=== PATIENT | female | born 1955 | race Caucasian/White ===

== ENCOUNTER 2022-09-27 11:19 | Outpatient (OUT) | payer MEDICARE, MEDICAID, SELFPAY ==
--- NOTE | 2022-09-27 11:25 | MM_ITS ---
Patient: DANELLE ROSS Exam Date: 09/27/2022 : 1955 Gender:F Ordering : RODNEY Jessica Sosa [employer] Admission #: [id number] Family : Order #: [id number] CLICK HERE TO VIEW EXAM RADIOLOGY REPORT PROCEDURE: MM TOMOSYNTHESIS SCREENING BI COMPARISON: MG MAMM SCREEN 3D GERARD CAD, 06/24/2021. MG MAMM SCREEN GERARD W CAD, 08/20/2018. MG MAMM SCREEN GERARD W CAD, 08/17/2017. MG MAMM GERARD SCRN W CAD DIG, 02/28/2014. INDICATIONS: Screening Calculator Name NCI Breast Cancer Risk Assessment Tool 5 Year Breast Cancer Risk 1.10% Lifetime Breast Cancer Risk 3.70% Personal Breast Cancer No Personal Ovarian Cancer No Treatments None Family Cancers Mother with pancreatic cancer at age 59. LOCATION: [facility] BREAST COMPOSITION: Scattered areas fibroglandular density. FINDINGS: DIAGNOSTIC CATEGORY 2--BENIGN FINDING: RIGHT BREAST: No significant suspicious finding. Scattered benign-appearing calcifications are present. No significant change has occurred. LEFT BREAST: No significant suspicious finding. Scattered benign-appearing calcifications are present. No significant change has occurred. RECOMMENDATIONS: ROUTINE MAMMOGRAM AND CLINICAL EVALUATION IN 12 MONTHS. PLEASE NOTE: A NORMAL MAMMOGRAM DOES NOT EXCLUDE THE POSSIBILITY OF BREAST CANCER. A CLINICALLY SUSPICIOUS PALPABLE LUMP SHOULD BE BIOPSIED. Dictated by: Gerald Cole M.D. on 09/29/2022 at 12:09 Approved by: Gerald Cole M.D. on 09/29/2022 at 12:19
== END 2022-09-27 11:20 | disposition home or self-care (01) ==
LOC: MAMMO 11:19
PROVIDERS: PCP Nurse Practitioner; Visit Provider Nurse Practitioner
DX: Z12.31 Encounter for screening mammogram for malignant neoplasm of breast (principal)
CPT/HCPCS: 77063; 77067

== ENCOUNTER 2023-05-01 09:46 | Outpatient (OUT) | payer MEDICARE, MEDICAID, SELFPAY ==
[2023-05-01 10:20] LABS: Basophils Percent Auto 0.6 % (0.2-2.0); Eosinophils Absolute Auto 0.2 10^3/uL (0.0-0.7); Eosinophils Percent Auto 2.6 % (0.9-7.0); Hematocrit 38.8 % (36.0-48.0); Hemoglobin 12.7 g/dL (12.0-16.0); Immature Granulocytes Abs Auto 0.01 10^3/uL (0.00-0.03); Immature Granulocytes Pct Auto 0.2 % (0.0-0.5); Lymphocytes Absolute Auto 1.7 10^3/uL (1.2-3.8); Lymphocytes Percent Auto 26.9 % (20.5-60.0); Mean Corpuscular HGB Conc 32.7 g/dL (29.9-35.2); Mean Corpuscular Hemoglobin 29.8 pg (26.7-34.0); Mean Corpuscular Volume 91.1 fL (81.0-99.0); Mean Platelet Volume 9.1 fL (9.5-13.5); Monocytes Absolute Auto 0.5 10^3/uL (0.3-0.8); Monocytes Percent Auto 7.3 % (1.7-12.0); Neutrophils Absolute Auto 3.9 10^3/uL (1.4-6.5); Neutrophils Percent Auto 62.4 % (43.0-75.0); Platelet Count 193 10^3/uL (150-450); Red Blood Count 4.26 10^6/uL (4.20-5.40); Red Cell Distribution Width 12.7 % (11.0-15.0); White Blood Count 6.2 10^3/uL (4.0-11.0)
[2023-05-01 10:27] LABS: Bilirubin Urine NEGATIVE (NEGATIVE); Blood Urine TRACE-I (NEGATIVE); Clarity Urine CLEAR (CLEAR); Color Urine YELLOW (YELLOW); Glucose Urine UA NEGATIVE (NEGATIVE); Ketones Urine NEGATIVE (NEGATIVE); Leukocyte Esterase Urine SMALL (NEGATIVE); Nitrite Urine NEGATIVE (NEGATIVE); Protein Urine NEGATIVE (NEG/TRACE); Specific Gravity Urine >=1.030 (1.005-1.025); Urobilinogen Urine 0.2 EU/dL (0.2-1.0)
[2023-05-01 10:28] LABS: Urine Microscopic Indicated YES
[2023-05-01 10:35] LABS: Bacteria Urine TRACE #/HPF (NONE SEEN); RBC Urine 0-2 #/HPF (0-2)
[2023-05-01 10:36] LABS: Mucus Urine MODERATE (NONE SEEN); Squamous Epithelial Cell Urine FEW #/LPF (NONE/RARE)
[2023-05-01 10:46] LABS: Microalbum Creatinine Ratio Ur 5.6 mg/g (0.0-29.9); Microalbumin Urine Random 1.4 mg/dL (<=30.0)
[2023-05-01 10:55] LABS: Alanine Aminotransferase 23 U/L (14-59); Albumin Globulin Ratio 0.8; Albumin Level 3.2 g/dL (3.4-5.0); Alkaline Phosphatase 107 U/L (46-116); Aspartate Amino Transferase 17 U/L (15-37); BUN Creatinine Ratio 10.5; Bilirubin Total 0.5 mg/dL (0.2-1.0); Calcium 8.9 mg/dL (8.5-10.1); Carbon Dioxide 28.7 mmol/L (21.0-32.0); Chloride 107 mmol/L (98-107); Chol HDL Ratio 3.9; Cholesterol 197 mg/dL (<=200); Estimated GFR (African America >60 (>=60); Estimated GFR (Non-African Ame >60 (>=60); Globulin 3.9 g/dL; Glucose 92 mg/dL (74-106); HDL Cholesterol 50 mg/dL (40-60); LDL Cholesterol Calculated 130.2 mg/dL; Potassium 3.7 mmol/L (3.5-5.1); Sodium 144 mmol/L (136-145); TSH W/ REFLEX FT4 2.565 uIU/mL (0.358-3.740); Total Protein 7.1 g/dL (6.4-8.2); Triglycerides 84 mg/dL (<=150); VLDL CHOLESTEROL 16.8 mg/dL
== END 2023-05-01 09:47 | disposition home or self-care (01) ==
LOC: LAB 09:49
PROVIDERS: PCP Nurse Practitioner; Visit Provider Nurse Practitioner
DX: R31.21 Asymptomatic microscopic hematuria (principal); I10 Essential (primary) hypertension; E55.9 Vitamin D deficiency, unspecified; E78.2 Mixed hyperlipidemia; E03.9 Hypothyroidism, unspecified; M85.80 Other specified disorders of bone density and structure, unspecified site
CPT/HCPCS: 36415; 80053; 80061; 81001; 82043; 82306; 82570; 84443; 85025

== ENCOUNTER 2023-08-07 20:24 | Outpatient (OUT) | payer MEDICARE, MEDICAID, SELFPAY ==
--- OUTSIDE RECORDS SUMMARY | 2023-08-07 20:48 | XMS_ITS | CCD ---
Demographics Address [address] [place] [address] Preferred Language en Marital Status Single Latter-Day Affiliation Unknown Race White Ethnic Group Not or Lati no Author Organization [facility] Inform ion [facility] Care Team Providers Care Color Maker Name Role Phone Conrado Mccoy Unavailable Unavail able Nadine, Conrado Álvarez Unavailable Unavail able Provider, Unlisted Unavailable Unavailable Jackelin Espinal Unavailable Unavailable Nadine, Conrado Álvarez Unavailable Unavail able Nadine, Conrado Álvarez Unavailable Unavail able Provider, Unlisted Unavailable Unavailable Conrado Ramos Unavailable Unavailable Theodore Guevara Unavailable Unavailable Nadine, Conrado Álvarez Unavailable Unavail able Nadine, Conrado Álvarez Unavailable Unavail able Provider, Unlisted Unavailable Unavailable SALLY, HANI Admitting Unavailable SALLY, HANI Attending Unavailable ZAHIDA BARKER Referring Unavailable FRANCIA JESSICA Primary Care Unavailable MD NIDHI MICHAELS Attending Unavailable MD NIDHI MICHAELS Primary Care Unavailable MD NIDHI MICHAELS Primary Care Unavailable MD NIDHI MICHAELS Consulting Unavailable MD SLICK STATON Attending Unavailab JESSICA Egan Primary Care Physician [phone] Jessica Sosa Primary Care Provider RADHA Hodge Attending Provider Jessica Sosa Primary Care Unavailable Yordan Hodge Attending Unavailable Yordan Hodge Admitting Unavailable RODNEY SOSA Admitting Unavailable RODNEY SOSA Attending Unavailable FRANCIA, RODNEY JESSICA Consulting Unavailable FRANCIA, RODNEY AVILEZA Primary Care Unavailable RODNEY SOSA JESSICA Admitting Unavailable DR JACKELIN STEELE V Consulting Unavailable FRANCIA, WARD SERVICE SUPERVISOR JESSICA Attending Unavailable AICHHOLZ, WARD SERVICE SUPERVISOR JESSICA Primary Care Unavailable AICHHOLZ, WARD SERVICE SUPERVISOR JESSICA Consulting Unavailable JACKELIN HODGE Consulting Unavailable AICHHOLZ, WARD SERVICE SUPERVISOR JESSICA Admitting Unavailable AICHHOLZ, WARD SERVICE SUPERVISOR JESSICA Attending Unavailable AICHHOLZ, WARD SERVICE SUPERVISOR JESSICA Consulting Unavailable AICHHOLZ, WARD SERVICE SUPERVISOR JESSICA Primary Care Unavailable DR JEROME AYALA Consulting Unavailable AICHHOLZ, WARD SERVICE SUPERVISOR JESSICA Admitting Unavailable AICHHOLZ, WARD SERVICE SUPERVISOR JESSICA Attending Unavailable AICHHOLZ, WARD SERVICE SUPERVISOR JESSICA Consulting Unavailable AICHHOLZ, WARD SERVICE SUPERVISOR JESSICA Primary Care Unavailable JOSE DE JESUS PEREZ Consulting Unavailable AICHHOLZ, WARD SERVICE SUPERVISOR JESSICA Primary Care Unavailable AICHHOLZ, WARD SERVICE SUPERVISOR JESSICA Attending Unavailable AICHHOLZ, WARD SERVICE SUPERVISOR JESSICA Admitting Unavailable AICHHOLZ, WARD SERVICE SUPERVISOR JESSICA Consulting Unavailable AICHHOLZ, WARD SERVICE SUPERVISOR JESSICA Admitting Unavailable AICHHOLZ, WARD SERVICE SUPERVISOR JESSICA Attending Unavailable AICHHOLZ, WARD SERVICE SUPERVISOR JESSICA Primary Care Unavailable AICHHOLZ, WARD SERVICE SUPERVISOR JESSICA Admitting Unavailable AICHHOLZ, WARD SERVICE SUPERVISOR JESSICA Attending Unavailable AICHHOLZ, WARD SERVICE SUPERVISOR JESSICA Consulting Unavailable AICHHOLZ, WARD SERVICE SUPERVISOR JESSICA Primary Care Unavailable DR JEROME AYALA Consulting Unavailable LINDA MASON Attending Unavailable AICHHOLZ, JESSICA Attending Unavailable AICHHOLZ, JESSICA Attending Unavailable AICHHOLZ, JESSICA Attending Unavailable Allergies Allergy Classification Reported Allergen(s) Allergy Type Date of Onset Reaction(s) Facility (5 sources) acetaminophen / HYDROcodone; Translations: [Vicodin] Drug Allergy 3 Eruption of skin (disorder) [facility] Repository (1 source) acetaminophen / oxyCODONE; Translations: [[facility]ocet 5325] [facility] code[facility]; Translations: [codeine] Drug Allergy 0 Eruption of skin (disorder), Weal (disorder) [facility] Repository (2 sources) Acetaminophen / oxyCODONE Drug Allergy 0 [facility] Repository (3 sources) Acetaminophen; Translations: [acetaminophen] Drug Allergy Weal (disorder) [facility] (3 sources) Acetaminophen / oxyCODONE; Translations: [acetaminophen-ox ycodone] Drug Allergy Cutaneous eruption (morphologic abnormality) [facility] [place] [facility] (3 sources) acetaminophen / propoxyphene; Translations: [acetaminophen-pr opoxyphene] Drug Allergy Eruption of skin (disorder) [facility] [place] [facility] (3 sources) Cortisone; Translations: [cortisone] Drug Allergy 6 Unknown [facility] (3 sources) oxyCODONE; Translations: [oxycodone] Drug Allergy Weal (disorder) [facility] (1 source) Cortisone Drug Allergy 6 [facility] Repository (1 source) Penicillins Drug allergy (disorder) 3 [facility] Repository (1 source) Darvocet-N 100 Drug allergy (disorder) 0 [facility] Repository (1 source) Codeine; Translations: [codeine sulfate] Drug Allergy [facility] Repository Medications Current Medications Medication Drug Class(es) Dates Sig (Normalized) Sig (Original) alendronic acid 70 mg oral tablet (2 sources) Bisphosphonate Start: 11-06-2018 take 1 tablet by mouth every week Fosamax 70 mg Tab 70 mg = 1 tab(s), Oral, 1x per week, Refills(s) 0 Start Date: 11/06/18 Status: Ordered busPIRone hydrochloride 7.5 mg oral tablet (2 sources) Start: 11-03-2021 busPIRone 7.5 mg oral tablet Refills(s) 0 Start Date: 11/03/21 Status: Ordered montelukast 10 mg oral tablet (2 sources) Leukotriene Receptor Antagonist Start: 11-06-2018 take 1 tablet by mouth once daily Singulair 10 mg Tab 10 mg = 1 tab(s), Oral, Daily, Refills(s) 0 Start Date: 11/06/18 Status: Ordered sertraline 100 mg oral tablet (2 sources) Serotonin Reuptake Inhibitor Start: 11-06-2018 take 1 tablet by mouth once daily Zoloft 100 mg Tab 100 mg = 1 tab(s), Oral, Daily, Refills(s) 0 Start Date: 11/06/18 Status: Ordered simvastatin 20 mg oral tablet (2 sources) HMG-CoA Reductase Inhibitor Start: 11-06-2018 take 1 tablet by mouth once daily at bedtime simvastatin 20 mg Tab 20 mg = 1 tab(s), Oral, Once a day (at bedtime), Refills(s) 0 Start Date: 11/06/18 Status: Ordered tolterodine tartrate 2 mg oral tablet (2 sources) Cholinergic Muscarinic Antagonist Start: 11-03-2021 take 1 tablet by mouth twice daily tolterodine 2 mg Tab 2 mg = 1 tab(s), Oral, BID, # 60 tab(s), Refills(s) 11, Pharmacy: [facility]/pharmacy #[id number], 165.1, cm, 03/31/20 9:27:00 EST, Height/Length Dosing, 92.8, kg, 03/31/20 9:27:00 EST, Weight Dosing Start Date: 11/03/21 Status: Ordered Vitamin D (2 sources) Start: 11-06-2018 Vitamin D Oral, Daily, Refills(s) 0 Start Date: 11/06/18 Status: Ordered Completed/Discontinued Medications Medication Drug Class(es) Dates Sig (Normalized) Sig (Original) levothyroxine sodium 0.05 mg oral tablet (2 sources) l-Thyroxine Start: 11-06-2018 take 1 tablet by mouth once daily levothyroxine 50 mcg (0.05 mg) Tab 50 microgram = 1 tab(s), Oral, Daily, Refills(s) 0 Start Date: 11/06/18 Status: Ordered Problems Active Problems Problem Classification Problem Date Documented Da te Episodic/Chronic Chronic obstructive pulmonary disease and bronchiectasis (4 sources) Bronchitis, not specified as acute or chronic; Translations: [BRONCHITIS NOT SPEC ACUTE/CHRON] Onset: 05-09-2022 Episodic Disorders of lipid metabolism (7 sources) Hypercholesterolemia ; Translations: [Hyperlipidemia, unspecified] Onset: 08-09-2021 05-17-2013 Chronic Essential hypertension (2 sources) Hypertensive disorder 08-08-2013 Chronic Comment on above: on no meds at presen t Genitourinary symptoms and ill-defined conditions (7 sources) Mixed incontinence; Translations: [Female stress incontinence] Onset: 11-03-2021 Chronic Genitourinary symptoms and ill-defined conditions (4 sources) Nocturia; Translations: [Poor stream of urine] 02-27-2020 Episodic Nutritional deficiencies (1 source) Vitamin D deficiency, unspecified; Translations: [VITAMIN D DEFICIENCY UNSPECIFIED] Onset: 06-03-2022 Chronic Other bone disease and musculoskeletal deformities (2 sources) Posterior calcaneal exostosis 05-17-2013 Episodic Comment on above: left Other diseases of bladder and urethra (1 source) Detrusor overactivity; Translations: [Overactive bladder] Onset: 11-03-2021 Chronic Other diseases of bladder and urethra (2 sources) Overactive bladder 03-31-2020 Chronic Other diseases of bladder and urethra (3 sources) Traumatic urethral stricture; Translations: [Other post-traumatic urethral stricture, female] Onset: 11-03-2021 Episodic Other upper respiratory disease (2 sources) Seasonal allergic rhinitis 10-04-2013 Chronic Spondylosis; intervertebral disc disorders; other back problems (2 sources) Other cervical disc degeneration, unspecified cervical region; Translations: [Other intervertebral disc degeneration, thoracic region] Onset: 06-03-2022 Chronic Spondylosis; intervertebral disc disorders; other back problems (4 sources) Pain in thoracic spine; Translations: [PAIN IN THORACIC SPINE] Onset: 05-25-2022 Episodic Thyroid disorders (1 source) Hypothyroidism, unspecified; Translations: [HYPOTHYROIDISM UNSPECIFIED] Onset: 06-03-2022 Chronic Unclassified (2 sources) Asymptomatic microscopic hematuria 11-21-2019 Unclassified (2 sources) Finding of sensation of bladder 02-27-2020 Unclassified (1 source) Hallux valgus (acquired), right foot; Translations: [Hallux valgus (acquired), right foot] Onset: 03-11-2022 Unclassified (3 sources) CONTACT W/AND (SUSP) EXPOS COVID-19; Translations: [CONTACT W/AND (SUSP) EXPOS COVID-19] Onset: 05-03-2022 Past or Other Problems Problem Classification Problem Date Documented Da te Episodic/Chronic Other bone disease and musculoskeletal deformities (1 source) Other specified disorders of bone density and structure, unspecified site; Translations: [OTH D/O BONE DEN STRUCT UNS SITE] Onset: 06-25-2021 Episodic Other non-traumatic joint disorders (4 sources) Pain in right hip; Translations: [PAIN IN RIGHT HIP] Onset: 12-08-2021 Episodic Other screening for suspected conditions (not mental disorders or infectious disease) (4 sources) Encounter for screening mammogram for malignant neoplasm of breast; Translations: [ENC SCR MAMMO MALIG NEOPLASM BREAST] Onset: 06-24-2021 Episodic Residual codes; unclassified (1 source) Asymptomatic menopausal state; Translations: [ASYMPTOMATIC MENOPAUSAL STATE] Onset: 06-25-2021 Episodic Residual codes; unclassified (1 source) Family history of malignant neoplasm of other organs or systems; Translations: [FAM HX MALIG NEOPLASM OTH ORGN/SYS] Onset: 06-25-2021 Episodic Unclassified (1 source) CONTACT W/AND (SUSP) EXPOS COVID-19; Translations: [CONTACT W/AND (SUSP) EXPOS COVID-19] Onset: 05-02-2022 Results Test Name Value Interpretation Reference Range Facility CBC AUTO DIFFon 05-25-2022 BASO # 0.0 103/ul Normal 0.0-0.1 [facility] Comment on above: Performed By: #### C BC #### [facility] [address] [place] [address] Dr. Dedrick Kinsey Basophils/100 WBC (Bld) 0.5 % Normal 0.2-2.0 [facility] Comment on above: Performed By: #### C BC #### [facility] [address] [address] [address] Dedrick Kinsey EO # 0.1 103/ul Normal 0.0-0.7 [facility] Comment on above: Performed By: #### C BC #### [facility] [address] [place] [address] Dr. Dedrick Kinsey Eosinophils/100 WBC (Bld) 2.5 % Normal 0.9-7.0 [facility] Comment on above: Performed By: #### C BC #### [facility] [address] [address] [address] Dedrick Kinsey Erythrocyte distribution width (RBC) [Ratio] 13.2 % Normal 11.0-15.0 [facility] Comment on above: Performed By: #### C BC #### [facility] [address] [place] [address] Dr. Dedrick Kinsey Hematocrit (Bld) [Volume fraction] 37.5 % Normal 36.0-48.0 [facility] Comment on above: Performed By: #### C BC #### [facility] [address] [place] [address] Dr. Dedrick Kinsey Hemoglobin (Bld) [Mass/Vol] 12.6 g/dL Normal 12.0-16.0 [facility] Comment on above: Performed By: #### C BC #### [facility] [address] [place] [address] Dr. Dedrick Kinsey IG # 0.01 10e3/ul Normal 0.00-0.03 [facility] Comment on above: Performed By: #### C BC #### [facility] [address] [place] [address] Dr. Dedrick Kinsey IG % 0.2 % Normal 0.0-0.5 [facility] Comment on above: Performed By: #### C BC #### [facility] [address] [place] [address] Dr. Dedrick Kinsey LYMPH # 1.5 103/ul Normal 1.2-3.8 [facility] Comment on above: Performed By: #### C BC #### [facility] [address] [place] [address] Dr. Dedrick Kinsey Lymphocytes/100 WBC (Bld) 34.0 % Normal 20.5-60.0 [facility] Comment on above: Performed By: #### C BC #### [facility] [address] [place] [address] Dr. Dedrick Kinsey MANUAL DIFF REQ NO Normal [facility] Comment on above: Performed By: #### C BC #### [facility] [address] [place] [address] Dr. Dedrick Kinsey MCH (RBC) [Entitic mass] 29.9 pg Normal 26.7-34.0 [facility] Comment on above: Performed By: #### C BC #### [facility] [address] [place] [address] Dr. Dedrick Kinsey MCHC (RBC) [Mass/Vol] 33.6 g/dL Normal 29.9-35.2 [facility] Comment on above: Performed By: #### C BC #### [facility] [id number] Dedrick Kinsey MCV (RBC) [Entitic vol] 89.1 fL Normal 81.0-99.0 [facility] Comment on above: Performed By: #### C BC #### [facility] [address] [address] [address] Dedrick Kinsey MONO # 0.4 103/ul Normal 0.3-0.8 [facility] Comment on above: Performed By: #### C BC #### [facility] [address] [place] [address] Dr. Dedrick Kinsey Monocytes/100 WBC (Bld) 9.0 % Normal 1.7-12.0 [facility] Comment on above: Performed By: #### C BC #### [facility] [address] [place] [address] Dr. Dedrick Kinsey NEUT # 2.3 103/ul Normal 1.4-6.5 [facility] Comment on above: Performed By: #### C BC #### [facility] [address] [place] [address] Dr. Dedrick Kinsey Neutrophils/100 WBC (Bld) 53.8 % Normal 43.0-75.0 [facility] Comment on above: Performed By: #### C BC #### [facility] [address] [place] [address] Dr. Dedrick Kinsey Platelet mean volume (Bld) [Entitic vol] 9.2 fL Critically low 9.5-13.5 [facility] Comment on above: Performed By: #### C BC #### [facility] [address] [place] [address] Dr. Dedrick Kinsey PLT 188 103/ul Normal 150-450 [facility] Comment on above: Performed By: #### C BC #### [facility] [address] [place] [address] Dr. Dedrick Kinsey RBC 4.21 106/ul Normal 4.20-5.40 [facility] Comment on above: Performed By: #### C BC #### [facility] [address] [place] [address] Dr. Dedrick Kinsey WBC 4.4 103/ul Normal 4.0-11.0 [facility] Comment on above: Performed By: #### C BC #### [facility] [address] [place], [place] [address] Dr. Dedrick Kinsey FREE T4on 05-25-2022 Free T4 [Mass/Vol] 0.79 ng/dL Normal 0.76-1.46 [facility] Comment on above: Performed By: #### V ITAD, FT4 ####[facility] [address] [id number][address] Dedrick Kinsey LIPID PROFILEon 05-25-2022 CHOL-HDL RATIO NORM SEE BELOW Normal [facility] Comment on above: Result Comment: 3.3 - 4.4 LOW RISK 4.4 - 7.1 AVERAGE RISK 7.1 - 11.0 MODERATE RISK >11.0 HIGH RISK Performed By: #### T SH, CMP, LIPID ####[facility] [address] [address]DrChanda Kinsey Cholesterol [Mass/Vol] 175 mg/dL Normal <=200 [facility] Comment on above: Performed By: #### T SH, CMP, LIPID ####[facility] [address] [id number] Kinsey Cholesterol in HDL [Mass/Vol] 39 mg/dL Critically low 40-60 [facility] Comment on above: Performed By: #### T SH, CMP, LIPID ####[facility] [address] [id number] Kinsey Cholesterol in LDL [Mass/Vol] 113.6 mg/dL Normal [facility] Comment on above: Performed By: #### T SH, CMP, LIPID ####[facility] [address] [id number] Kinsey Cholesterol.total/Cho lesterol in HDL [Mass ratio] 4.5 {ratio} Normal [facility] Comment on above: Performed By: #### T SH, CMP, LIPID ####[facility] [address] [id number] Kinsey HDL NORMAL > or = 60 mg/dl - LO W CARDIOVASCULAR RISK <40 mg/dl - HIGH CARDIOVASCULAR RISK Normal [facility] Comment on above: Performed By: #### T SH, CMP, LIPID ####[facility] [address] [id number] Kinsey LDL CALC NORMAL SEE BELOW Normal [facility] Comment on above: Result Comment: <100 mg/dl OPTIMAL 100 - 129 mg/dl NEAR OR ABOVE OPTIMAL 130 - 159 mg/dl BORDERLINE HIGH 160 - 189 mg/dl HIGH >190 mg/dl VERY HIGH Performed By: #### T SH, CMP, LIPID ####[facility] [address] [id number] Kinsey Triglyceride [Mass/Vol] 112 mg/dL Normal <=150 [facility] Comment on above: Performed By: #### T SH, CMP, LIPID ####[facility] [address] [address]Dr. Dedrick Kinsey VLDL CALC 22.4 mg/dL Normal [facility] Comment on above: Performed By: #### T SH, CMP, LIPID ####[facility] [address] [id number] Kinsey PROF 14(COMP METB)on 023 Albumin [Mass/Vol] 3.5 g/dL Normal 3.4-5.0 [facility] Comment on above: Performed By: #### T SH, CMP, LIPID ####[facility] [address] [id number]. Dedrick Kinsey Albumin/Globulin [Mass ratio] 1.0 {ratio} Normal [facility] Comment on above: Performed By: #### T SH, CMP, LIPID ####[facility] [address] [address]Dr. Dedrick Kinsey ALP [Catalytic activity/Vol] 84 U/L Normal 46-116 [facility] Comment on above: Performed By: #### T SH, CMP, LIPID ####[facility] [address] [address]DrChanda Kinsey ALT [Catalytic activity/Vol] 37 U/L Normal 14-59 [facility] Comment on above: Performed By: #### T SH, CMP, LIPID ####[facility] [address] [address]Dr. Dedrick Kinsey Anion gap [Moles/Vol] 11.7 mmol/L Normal Th e [facility] Comment on above: Performed By: #### T SH, CMP, LIPID ####[facility] [address] [address]Dr. Dedrick Kinsey AST [Catalytic activity/Vol] 20 U/L Normal 15-37 [facility] Comment on above: Performed By: #### T SH, CMP, LIPID ####[facility] [address] [place], [place] [address]Dr. Dedrick Kinsey Bilirubin [Mass/Vol] 0.8 mg/dL Normal 0.2-1.0 [facility] Comment on above: Performed By: #### T SH, CMP, LIPID ####[facility] [address] [place], [place] [address]Dr. Dedrick Kinsey Calcium [Mass/Vol] 9.4 mg/dL Normal 8.5-10.1 [facility] Comment on above: Performed By: #### T SH, CMP, LIPID ####[facility] [address] [place], [place] [address]Dr. Dedrick Kinsey Chloride [Moles/Vol] 106 mmol/L Normal 98-107 [facility] Comment on above: Performed By: #### T SH, CMP, LIPID ####[facility] [address] [place], [place] [address]Dr. Dedrick Kinsey CO2 [Moles/Vol] 28.4 mmol/L Normal 21.0-32.0 [facility] Comment on above: Performed By: #### T SH, CMP, LIPID ####[facility] [address] [place], [place] [address]Dr. Dedrick Kinsey Creatinine [Mass/Vol] 0.77 mg/dL Normal 0.55-1.02 [facility] Comment on above: Performed By: #### T SH, CMP, LIPID ####[facility] [address] [id number]. Dedrick Kinsey EGFR-AF ZAMBIAN >60 Normal >=60 [facility] Comment on above: Performed By: #### T SH, CMP, LIPID ####[facility] [address] [address]Dr. Dedrick Kinsey EGFR-NON AF ZAMBIAN >60 Normal >=60 [facility] Comment on above: Performed By: #### T SH, CMP, LIPID ####[facility] [address] [address]Dr. Dedrick Kinsey Globulin (S) [Mass/Vol] 3.6 g/dL Normal [facility] Comment on above: Performed By: #### T SH, CMP, LIPID ####[facility] [address] [address]Dr. Dedrick Kinsey Glucose [Mass/Vol] 106 mg/dL Normal 74-106 [facility] Comment on above: Performed By: #### T SH, CMP, LIPID ####[facility] [address] [address]Dr. Dedrick Kinsey Potassium [Moles/Vol] 4.1 mmol/L Normal 3.5-5.1 [facility] Comment on above: Performed By: #### T SH, CMP, LIPID ####[facility] [address] [address]Dr. Marielylan Kinsey Protein [Mass/Vol] 7.1 g/dL Normal 6.4-8.2 [facility] Comment on above: Performed By: #### T SH, CMP, LIPID ####[facility] [address] [address]Dr. Marielylan Kinsey Sodium [Moles/Vol] 142 mmol/L Normal 136-145 [facility] Comment on above: Performed By: #### T SH, CMP, LIPID ####[facility] [address] [address]Dr. Marielylan Kinsey Urea nitrogen [Mass/Vol] 10.0 mg/dL Normal 7.0-18.0 [facility] Comment on above: Performed By: #### T SH, CMP, LIPID ####[facility] [address] [phone]. Dedrick Kinsey Urea nitrogen/Creatinine [Mass ratio] 13.0 mg/mg Normal [facility] Comment on above: Performed By: #### T SH, CMP, LIPID ####[facility] [address] [phone]. Dedrick Kinsey TSHon 05-25-2022 TSH 2.611 uIU/mL Normal 0.358-3.74 0 [facility] Comment on above: Performed By: #### T SH, CMP, LIPID ####[facility] [address] [address]Dr. Dedrick Kinsey VITAMIN D 25 OHon 05-25-2022 VIT D 25-OH 31.7 ng/mL Normal [facility] Comment on above: Performed By: #### V ITAD, FT4 ####[facility] [address] [address]Dr. Dedrick Kinsey VIT D RANGES SEE BELOW Normal [facility] Comment on above: Result Comment: <20 ng/mL Vit D deficient 20 - <30 ng/mL Vit D insufficient 30 - 100 ng/mL Vit D sufficient >100 ng/mL Potential Toxicity Performed By: #### V ITAD, FT4 ####[facility] [address] [address]Dr. Dedrick Kinsey XR CSPINE 2_3 VIEWSon 2022 XR CSPINE 2_3 VIEWS EXAMINATION: XR CSPI NE 2_3 VIEWS HISTORY: Degeneration of cervical intervertebral disc ; chronic back pain COMPARISON: No relevant comparison available. FINDINGS: BONES: Posterior mechanical fusion C3-C7 via bilateral pedicle screws and rods; no appreciable hardware fracture or loosening. Posterior decompression C3-C5, and moderate degenerative facet arthropathy. DISC SPACES: Mild narrowing C3-C4 through C6-C7. PARASPINOUS: Negative. No paraspinous abnormality is seen. OTHER: Negative. IMPRESSION: 1. C3-C7 bilateral posterior mechanical fusion and posterior decompression without appreciable hardware failure; no comparison studies. 2. Multilevel moderate degenerative disc disease and facet arthropathy. Electronically authenticated by: JEROME AYALA Date: 2022-05-25 11:30 Normal [facility] XR TSPINE 3 VIEWSon 05-26-19 23 XR TSPINE 3 VIEWS EXAMINATION: XR TSPI NE 3 VIEWS HISTORY: Pain in thoracic spine COMPARISON: XR chest 12/30/2019 FINDINGS: BONES: No significant spondylosis, scoliosis, fracture, or visible bony lesion. DISC SPACES: Multilevel mild degenerative disc disease and anterior endplate osteophytes. PARASPINOUS: Negative. No paraspinous abnormality is seen. OTHER: Mechanical fusion of cervical spine. IMPRESSION: 1. Multilevel mild degenerative disc disease of thoracic spine. No acute or specific abnormality. 2. Posterior mechanical fusion of cervical spine. Please see today's XR C-spine report. Electronically authenticated by: JEROME AYALA Date: 2022-05-25 11:32 Normal [facility] XR CHEST 2 Von 05-09-2022 XR CHEST 2 V EXAM: XR CHEST 2 V HISTORY: Bronchitis . Cough for one week. COMPARISON: 12/30/2019 TECHNIQUE: Upright PA and lateral chest x-ray FINDINGS: The heart is not enlarged and the vasculature is not distended. There has been interval clearing of the right lung base. No acute infiltrate, effusion or pneumothorax is identified. There is no clear evidence of bronchitis at this time. Degenerative changes are seen in the spine. Hardware projects over the cervical spine. IMPRESSION: No acute infiltrate or evidence of cardiac decompensation. There is been interval improvement of the aeration at the right lung base, and the overall appearance of the chest is otherwise unchanged. Electronically authenticated by: JOSE DE JESUS PEREZ Date: 2022-05-09 12:45 Normal [facility] Covid-19 PCR ([facility]on 04-20 SARS-CoV-2 (COVID-19) RNA JAYY+probe Ql (Unsp spec) Not detected Normal NOT DETECTED [facility] Comment on above: Result Comment: When diagnostic testing is negative, the possibility of a false negative should be considered in the context of a patient's recent exposures and the presence of clinical signs and symptoms consistent with SARS-CoV-2. This test is not yet approved or cleared by the [place] FDA. When there are no FDA-approved or cleared tests available, and other criteria are met, FDA can make tests available under an emergency access mechanism called an Emergency Use Authorization (EUA). The EUA for this test is supported by the Book C[employer] of Health and Human Service's declaration that circumstances exist to justify the emergency use of in vitro diagnostics for the detection and/or diagnosis of the virus that causes COVID-19. This EUA will remain in effect for the duration of the COVID-19 declaration justifying emergency of IVDs, unless it is terminated or revoked by the FDA (after which the test may no longer be used). Performed By: #### [facility] ####[facility] [id number] [place], [place] [address]Ay. Dedrick Kinsey Basic Metabolic Panelon 02-21 Anion gap [Moles/Vol] 11.2 mmol/L Normal 6.0-15.0 [facility] Comment on above: Order Comment: Reason for Exam HAV (hallux abducto valgus), right Performed By: #### C BC, BMP #### [address] Calcium [Mass/Vol] 9.2 mg/dL Normal 8.2-10.2 [facility] Comment on above: Order Comment: Reason for Exam HAV (hallux abducto valgus), right Result Comment: PERF ORMED BY: [place] [address] PATHOLOGIST CONTINUOUS VULCANIZING MACHINE OPERATOR SHRUTHI KIRKPATRICK M.D. Performed By: #### C BC, BMP #### [place] [address] [place] Chloride [Moles/Vol] 102 mmol/L Normal 95-114 [facility] Comment on above: Order Comment: Reason for Exam HAV (hallux abducto valgus), right Performed By: #### C BC, BMP #### [facility] [address] [place] [id number] [place] CO2 [Moles/Vol] 27.0 mmol/L Normal 22.0-30.0 [facility] Comment on above: Order Comment: Reason for Exam HAV (hallux abducto valgus), right Performed By: #### C BC, BMP #### [place] [address] [place] Creatinine [Mass/Vol] 0.80 mg/dL Normal 0.44-1.03 [facility] Comment on above: Order Comment: Reason for Exam HAV (hallux abducto valgus), right Performed By: #### C BC, BMP #### [address] Estimated GFR ( Kate > 60 Normal [facility] Comment on above: Order Comment: Reason for Exam HAV (hallux abducto valgus), right Result Comment: GFR estimated reference range: According to KDOQI guidelines, <60 ml/min/1.73m2 is sufficient to diagnose a patient with chronic kidney disease. Performed By: #### C BC, BMP #### [address] Estimated GFR (Non- Am > 60 [facility] Comment on above: Order Comment: Reason for Exam HAV (hallux abducto valgus), right Performed By: #### C BC, BMP #### [address] Glucose [Mass/Vol] 99 mg/dL Normal 70-100 [facility] Comment on above: Order Comment: Reason for Exam HAV (hallux abducto valgus), right Result Comment: [place] om Glucose Reference Range is dependent on time and content of last meal. Glucose of more than 200 mg/dL in a nonstressed, ambulatory subject supports the diagnosis of Diabetes Mellitus. ADA recommended reference range Performed By: #### C BC, BMP #### [place] [id number] [facility] Potassium [Moles/Vol] 4.2 mmol/L Normal 3.5-5.1 [facility] Comment on above: Order Comment: Reason for Exam HAV (hallux abducto valgus), right Performed By: #### C BC, BMP #### [place] [id number] [facility] Sodium [Moles/Vol] 136 mmol/L Normal 136-146 [facility] Comment on above: Order Comment: Reason for Exam HAV (hallux abducto valgus), right Performed By: #### C BC, BMP #### [facility] [address] [place] [address] [place] Urea nitrogen [Mass/Vol] 10 mg/dL Normal 9-23 [facility] Comment on above: Order Comment: Reason for Exam HAV (hallux abducto valgus), right Performed By: #### C BC, BMP #### [facility] [address] [place] [address] [place] Basophils Auto (Bld) [#/Vol] Ordered By: Yordan Hodge on 03-11-2022 Basophils (Bld) [#/Vol] 0.0 10*3/uL 0.0-0.2 [facility] Basophils/100 WBC Auto (Bld) Ordered By: Yordan Hodge on 03-11-2022 Basophils/100 WBC (Bld) 0.4 % . [facility] Complete Blood Count Auto Di ffon 03-11-2022 Basophils (Bld) [#/Vol] 0.0 10*3/uL Normal 0.0-0.2 [facility] Comment on above: Order Comment: Reaso n for Exam HAV (hallux abducto valgus), right Result Comment: PERF ORMED BY: [place] [address] PATHOLOGIST CONTINUOUS VULCANIZING MACHINE OPERATOR SHRUTHI KIRKPATRICK M.D. Performed By: #### C BC, BMP #### [place] [address] [place] Basophils/100 WBC (Bld) 0.4 % Normal . [facility] Comment on above: Order Comment: Reaso n for Exam HAV (hallux abducto valgus), right Performed By: #### C BC, BMP #### [facility] [address] [place] [address] [place] Eosinophils (Bld) [#/Vol] 0.1 10*3/uL Normal 0.0-0.45 [facility] Comment on above: Order Comment: Reaso n for Exam HAV (hallux abducto valgus), right Performed By: #### C BC, BMP #### [facility] [address] [place] [address] Eosinophils/100 WBC (Bld) 1.4 % Normal . [facility] Comment on above: Order Comment: Reaso n for Exam HAV (hallux abducto valgus), right Performed By: #### C BC, BMP #### [address] Erythrocyte distribution width (RBC) [Ratio] 13.1 % Normal 11.9-15.3 [facility] Comment on above: Order Comment: Reaso n for Exam HAV (hallux abducto valgus), right Performed By: #### C BC, BMP #### [address] Hematocrit (Bld) [Volume fraction] 39.5 % Normal 34.0-46.4 [facility] Comment on above: Order Comment: Reaso n for Exam HAV (hallux abducto valgus), right Performed By: #### C BC, BMP #### [address] Hemoglobin (Bld) [Mass/Vol] 13.3 g/dL Normal 11.8-15.4 [facility] Comment on above: Order Comment: Reaso n for Exam HAV (hallux abducto valgus), right Performed By: #### C BC, BMP #### [address] Lymphocytes (Bld) [#/Vol] 1.6 10*3/uL Normal 1.00-4.8 [facility] Comment on above: Order Comment: Reaso n for Exam HAV (hallux abducto valgus), right Performed By: #### C BC, BMP #### [address] Lymphocytes/100 WBC (Bld) 22.0 % Normal . [facility] Comment on above: Order Comment: Reaso n for Exam HAV (hallux abducto valgus), right Performed By: #### C BC, BMP #### [address] MCH (RBC) [Entitic mass] 30.0 pg Normal 24.7-34.3 [facility] Comment on above: Order Comment: Reaso n for Exam HAV (hallux abducto valgus), right Performed By: #### C BC, BMP #### [facility] [address] MCV (RBC) [Entitic vol] 88.8 fL Normal 80-100 [facility] Comment on above: Order Comment: Reaso n for Exam HAV (hallux abducto valgus), right Performed By: #### C BC, BMP #### [facility] [address] Mean Corpuscular HGB Conc 33.7 g/dL Normal 32.0-35.0 [facility] Comment on above: Order Comment: Reaso n for Exam HAV (hallux abducto valgus), right Performed By: #### C BC, BMP #### [place] [address] [place] Monocytes (Bld) [#/Vol] 0.5 10*3/uL Normal 0.0-0.8 [facility] Comment on above: Order Comment: Reaso n for Exam HAV (hallux abducto valgus), right Performed By: #### C BC, BMP #### [place] [address] [place] Monocytes/100 WBC (Bld) 7.0 % Normal . [facility] Comment on above: Order Comment: Reaso n for Exam HAV (hallux abducto valgus), right Performed By: #### C BC, BMP #### [place] [address] [place] Neutrophils (Bld) [#/Vol] 5.0 10*3/uL Normal 1.8-7.7 [facility] Comment on above: Order Comment: Reaso n for Exam HAV (hallux abducto valgus), right Performed By: #### C BC, BMP #### [place] [address] [place] Neutrophils/100 WBC (Bld) 69.2 % Normal . [facility] Comment on above: Order Comment: Reaso n for Exam HAV (hallux abducto valgus), right Performed By: #### C BC, BMP #### [facility] [address] NRBC% 0.2 /100{WBC} Normal 0-0.5 [facility] Comment on above: Order Comment: Reaso n for Exam HAV (hallux abducto valgus), right Performed By: #### C BC, BMP #### [address] Platelet mean volume (Bld) [Entitic vol] 7.6 fL Normal 6.3-10.7 [facility] Comment on above: Order Comment: Reaso n for Exam HAV (hallux abducto valgus), right Performed By: #### C BC, BMP #### [address] Platelets (Bld) [#/Vol] 212 10*3/uL Normal 150-450 [facility] Comment on above: Order Comment: Reaso n for Exam HAV (hallux abducto valgus), right Performed By: #### C BC, BMP #### [address] RBC (Bld) [#/Vol] 4.44 10*6/uL Normal 3.60-5.00 [facility] Comment on above: Order Comment: Reaso n for Exam HAV (hallux abducto valgus), right Performed By: #### C BC, BMP #### [address] WBC (Bld) [#/Vol] 7.3 10*3/uL Normal 3.8-11.6 [facility] Comment on above: Order Comment: Reaso n for Exam HAV (hallux abducto valgus), right Performed By: #### C BC, BMP #### [address] Creatinine and Glomerular fi ltration rate.predicted panel (S/P/Bld)Ordered By: Yordan Hodge on 03-11-2022 Creatinine [Mass/Vol] 0.80 mg/dL 0.44-1.03 [facility] ECG 12 lead ECGon 03-11-2022 ECG 12 lead ECG [facility] Main [place] [address] [place] [address] Electrocardiograph Report Signed Patient: Claudette Hernandes MR#: [id number] : 1955 Acct:[id number] Age/Sex: 66 / F ADM Date: 03/11/22 Loc: XD Room: Type: [facility] CLI Attending Dr: Yordan Hodge DPM Ordering Provider: Yordan Hodge DPM Date of Service: 03/11/22 ECG/ECG 12 lead ECG: surgery;HAV (hallux abducto valgus), right Copies to: Test Reason : Blood Pressure : / mmHG Vent. Rate : 081 BPM Atrial Rate : 081 BPM P-R Int : 216 ms QRS Dur : 084 ms QT Int : 394 ms P-R-T Axes : 076 070 062 degrees QTc Int : 457 ms Sinus rhythm with 1st degree AV block Incomplete right bundle branch block Otherwise normal ECG When compared with ECG of 11-MAR-2022 10:11, (Unconfirmed) No significant change was found Confirmed by LAURA CHAVEZ MD ([id number]) on 03/11/2022 6:01:10 PM Referred By: Electronically Signed By:LAURA CHAVEZ MD Transcribed By: MUS Signed By Laura Chavez MD [id number] Normal [facility] Eosinophils Auto (Bld) [#/Vo l]Ordered By: Yordan Hodge on 03-11-2022 Eosinophils (Bld) [#/Vol] 0.1 10*3/uL 0.0-0.45 [facility] Eosinophils/100 WBC Auto (Bl d)Ordered By: Yrodan Hodge on 03-11-2022 Eosinophils/100 WBC (Bld) 1.4 % . [facility] Erythrocyte distribution wid th Auto (RBC) [Ratio]Ordered By: Yordan Hodge on 03-11-2022 Erythrocyte distribution width (RBC) [Ratio] 13.1 % 11.9-15.3 [facility] Estimated glomerular filtrat ion rate (GFR) non- AmericanOrdered By: Yordan Hodge on 03-11-2022 GFR/1.73 sq M.predicted among non-blacks MDRD (S/P/Bld) [Vol rate/Area] > 60 mL/Min [facility] Hematocrit Auto (Bld) [Volum e fraction]Ordered By: Yordan Hodge on 03-11-2022 Hematocrit (Bld) [Volume fraction] 39.5 % 34.0-46.4 [facility] Hemoglobin [Mass/volume] in BloodOrdered By: Yordan Hodge on 03-11-2022 Hemoglobin (Bld) [Mass/Vol] 13.3 g/dL 11.8-15.4 [facility] Leukocytes [#/volume] correc slim for nucleated erythrocytes in Blood by Automated counOrdered By: Yordan Hodge on 03-11-2022 WBC corrected for nucl RBC Auto (Bld) [#/Vol] 7.3 10*3/uL 3.8-11.6 [facility] Lymphocytes Auto (Bld) [#/Vo l]Ordered By: Yordan Hodge on 03-11-2022 Lymphocytes (Bld) [#/Vol] 1.6 10*3/uL 1.00-4.8 [facility] Lymphocytes/100 WBC Auto (Bl d)Ordered By: Yordan Hodge on 03-11-2022 Lymphocytes/100 WBC (Bld) 22.0 % . [facility] MCH Auto (RBC) [Entitic mass ]Ordered By: Yordan Hodge on 03-11-2022 MCH (RBC) [Entitic mass] 30.0 pg 24.7-34.3 [facility] MCHC Auto (RBC) [Mass/Vol]Or dered By: Yordan Hodge on 03-11-2022 MCHC (RBC) [Mass/Vol] 33.7 g/dL 32.0-35.0 [facility] MCV Auto (RBC) [Entitic vol] Ordered By: Yordan Hodge on 03-11-2022 MCV (RBC) [Entitic vol] 88.8 fL 80-100 [facility] Monocytes Auto (Bld) [#/Vol] Ordered By: Yordan Hodge on 03-11-2022 Monocytes (Bld) [#/Vol] 0.5 10*3/uL 0.0-0.8 [facility] Monocytes/100 WBC Auto (Bld) Ordered By: Yordan Hodge on 03-11-2022 Monocytes/100 WBC (Bld) 7.0 % . [facility] Neutrophils Auto (Bld) [#/Vo l]Ordered By: Yordan Hodge on 03-11-2022 Neutrophils (Bld) [#/Vol] 5.0 10*3/uL 1.8-7.7 [facility] Neutrophils/100 WBC Auto (Bl d)Ordered By: Yordan Hodge on 03-11-2022 Neutrophils/100 WBC (Bld) 69.2 % . [facility] No Panel InformationOrdered By: Yordan Hodge on 03-11-2022 Estimated GFR () > 60 mL/Min [facility] Comment on above: GFR estimated refere nce range: According to KDOQI guidelines, <60 ml/min/1.73m2 is sufficient to diagnose a patient with chronic kidney disease. Pharmacy Creatinine Clearance (Chem N/A [facility] Nucleated erythrocytes [Pres ence] in Blood by Automated countOrdered By: Yordan Hodge on 03-11-2022 Nucleated RBC Auto Ql (Bld) 0.2 /100{WBC} 0-0.5 [facility] Platelet mean volume Auto (B ld) [Entitic vol]Ordered By: Yordan Hodge on 03-11-2022 Platelet mean volume (Bld) [Entitic vol] 7.6 fL 6.3-10.7 [facility] Platelets Auto (Bld) [#/Vol] Ordered By: Yordan Hodge on 03-11-2022 Platelets (Bld) [#/Vol] 212 10*3/uL 150-450 [facility] RBC Auto (Bld) [#/Vol]Ordere d By: Yordan Hodge on 03-11-2022 RBC (Bld) [#/Vol] 4.44 10*6/uL 3.60-5.00 [facility] Serum or plasma anion gap de terminationOrdered By: Yordan Hodge on 03-11-2022 Anion gap [Moles/Vol] 11.2 mmol/L 6.0-15.0 [facility] Serum or plasma calcium yaz urement (mass/volume)Ordered By: Yordan Hodge on 03-11-2022 Calcium [Mass/Vol] 9.2 mg/dL 8.2-10.2 [facility] Serum or plasma chloride ady surement (moles/volume)Ordered By: Yordan Hodge on 03-11-2022 Chloride [Moles/Vol] 102 mmol/L 95-114 [facility] Serum or plasma glucose yaz urement (mass/volume)Ordered By: Yordan Hodge on 03-11-2022 Glucose [Mass/Vol] 99 mg/dL 70-100 [facility] Comment on above: ADA recommended refe rence rangeRandom Glucose Reference Range is dependent on time and content of last meal. Glucose of more than 200 mg/dL in a nonstressed, ambulatory subject supports the diagnosis of Diabetes Mellitus. Serum or plasma potassium me asurement (moles/volume)Ordered By: Yordan Hodge on 03-11-2022 Potassium [Moles/Vol] 4.2 mmol/L 3.5-5.1 [facility] Serum or plasma sodium measu rement (moles/volume)Ordered By: Yordan Hodge on 03-11-2022 Sodium [Moles/Vol] 136 mmol/L 136-146 [facility] Serum or plasma total carbon dioxide measurement (moles/volume)Ordered By: Yordan Hodge on 03-11-2022 CO2 [Moles/Vol] 27.0 mmol/L 22.0-30.0 [facility] Serum or plasma urea nitroge n measurement (mass/volume)Ordered By: Yordan Hodge on 03-11-2022 Urea nitrogen [Mass/Vol] 10 mg/dL 9-23 [facility] WBC Auto (Bld) [#/Vol]Ordere d By: Yordan Hodge on 03-11-2022 WBC (Bld) [#/Vol] 7.3 10*3/uL 3.8-11.6 [facility] XR chest 2V*on 03-11-2022 XR chest 2V* [facility] Main [place] [address] [place] [address] XRay Report Signed Patient: Claudette Hernandes MR#: [id number] 1278 : 1955 Acct:[id number] Age/Sex: 66 / F ADM Date: 03/11/22 Loc: XD Room: Type: [facility] Attending Dr: Yordan Hodge DPM Copies to: Yordan Hodge DPM Ordering Provider: Yordan Hodge DPM Date of Service: 03/11/22 XR/XR chest 2V*: surgery;HAV (hallux abducto valgus), right PA AND LATERAL CHEST: CLINICAL HISTORY: Preop clearance for foot surgery. COMPARISON: None There is no focal parenchymal consolidation, effusion or pneumothorax. The cardiac, hilar and mediastinal silhouettes are within normal limits. There is no vascular congestion. The visuali zed bony thorax is intact. There is slight levoscoliotic curvature and endplate spurring at the spine. There is partially imaged lower cervical fusion hardware and an anchor pin at the right humeral head. XR/XR chest 2V* IMPRESSION: NO ACUTE CARDIOPULMONARY ABNORMALITY. Impression dictated by: Carmela Carlos M.D.03/11/2022 2:29 PM Dictation Location: [place] [address] Transcribed By: [facility] 03/11/22 1429 Dictated By: Carmela Carlos MD 03/11/22 1428 Signed By: 03/11/22 1429 Normal [facility] LIPID PROFILEon 08-09-2021 CHOL-HDL RATIO NORM SEE BELOW Normal [facility] Comment on above: Result Comment: 3.3 - 4.4 LOW RISK 4.4 - 7.1 AVERAGE RISK 7.1 - 11.0 MODERATE RISK >11.0 HIGH RISK Performed By: #### L IPID, AST, ALT #### [facility] [address] [place] [address] [address] Dedrick Kinsey Cholesterol [Mass/Vol] 195 mg/dL Normal <=200 [facility] Comment on above: Performed By: #### L NIMAID, AST, ALT #### [facility] [address] [place] [address] [address] Dedrick Kinsey Cholesterol in HDL [Mass/Vol] 47 mg/dL Normal 40-60 [facility] Comment on above: Performed By: #### L IPID, AST, ALT #### [facility] [address] [place] [address] [address] Dedrick Kinsey Cholesterol in LDL [Mass/Vol] 130.0 mg/dL Normal [facility] Comment on above: Performed By: #### L IPID, AST, ALT #### [facility] [address] [address] [address] Dedrick Kinsey Cholesterol.total/Cho lesterol in HDL [Mass ratio] 4.1 {ratio} Normal [facility] Comment on above: Performed By: #### L IPID, AST, ALT #### [facility] [address] [place] [address] [address] Dedrick Kinsey HDL NORMAL > or = 60 mg/dl - LO W CARDIOVASCULAR RISK <40 mg/dl - HIGH CARDIOVASCULAR RISK Normal [facility] Comment on above: Performed By: #### L IPID, AST, ALT #### [facility] [address] [address] [address] Dedrick Kinsey LDL CALC NORMAL SEE BELOW Normal [facility] Comment on above: Result Comment: <100 mg/dl OPTIMAL 100 - 129 mg/dl NEAR OR ABOVE OPTIMAL 130 - 159 mg/dl BORDERLINE HIGH 160 - 189 mg/dl HIGH >190 mg/dl VERY HIGH Performed By: #### L IPID, AST, ALT #### [facility] [address] [address] [address] Dedrick Kinsey Triglyceride [Mass/Vol] 90 mg/dL Normal <=150 [facility] Comment on above: Performed By: #### L IPID, AST, ALT #### [facility] [address] [place] [address] [address] Dedrick Kinsey VLDL CALC 18.0 mg/dL Normal [facility] Comment on above: Performed By: #### L IPID, AST, ALT #### [facility] [address] [place], [place] [address] Dr. Dedrick Kinsey SGOTon 08-09-2021 AST [Catalytic activity/Vol] 16 U/L Normal 15-37 [facility] Comment on above: Performed By: #### L IPID, AST, ALT #### [facility] [address] [place], [place] [address] Dr. Dedrick Kinsey SGPTon 08-09-2021 ALT [Catalytic activity/Vol] 26 U/L Normal 14-59 [facility] Comment on above: Performed By: #### L IPID, AST, ALT #### [facility] [address] [place], [place] [address] Dr. Dedrick Kinsey MG MAMM SCREEN 3D GERARD CADon 06-24-2021 MG MAMM SCREEN 3D GERARD CAD Patient: CLAUDETTE HERNANDES Exam Date: 06/24/2021 : 1955 Gender:F Ordering : RODNEY SOSA [facility] Admission #: [id number] Family : Order #: [id number] CLICK HERE TO VIEW EXAM RADIOLOGY REPORT PROCEDURE: MAMMOGRAM SCREENING 3D BILATERAL CAD COMPARISON: MG MAMM SCREEN GERARD W CAD, 08/20/2018. MG MAMM SCREEN GERARD W CAD, 08/17/2017. INDICATIONS: Screening mammography Calculator Name NCI Breast Cancer Risk Assessment Tool 5 Year Breast Cancer Risk 1.10% Lifetime Breast Cancer Risk 4.00% Personal Breast Cancer No Personal Ovarian Cancer No Treatments None Family Cancers Mother with pancreatic cancer at age 59. LOCATION: [facility] BREAST COMPOSITION: Scattered areas fibroglandular density. FINDINGS: DIAGNOSTIC CATEGORY 2--BENIGN FINDING. NO CHANGE FROM COMPARISON. Moderately nodular parenchymal pattern limiting diagnostic sensitivity but grossly stable. Scattered benign-appearing calcifications are present. Scattered benign-appearing lymph nodes are present. RIGHT BREAST: No significant suspicious finding. LEFT BREAST: No significant suspicious finding. RECOMMENDATIONS: ROUTINE MAMMOGRAM AND CLINICAL EVALUATION IN 12 MONTHS. PLEASE NOTE: A NORMAL MAMMOGRAM DOES NOT EXCLUDE THE POSSIBILITY OF BREAST CANCER. A CLINICALLY SUSPICIOUS PALPABLE LUMP SHOULD BE BIOPSIED. Dictated by: Jackelin Steele MD on 06/24/2021 at 11:38 Approved by: Jackelin Steele MD on 06/24/2021 at 11:40 Normal [facility] XR DEXA BONE DENSITYon 06-24 XR DEXA BONE DENSITY DEXA Bone Density S [facility] CLINICAL: Evaluate bone mineral density. Postmenopausal COMPARISON: None FINDINGS: The bone density study was assessed by dual-energy x-ray absorptiometry with the [employer] scanner. The test results are expressed in T-Score, which is used for diagnosis for osteoporosis, and reflects the standard deviations from the mean peak bone mineral density in young adults. Additional information regarding the Z-Score reflects the standard deviations from the mean peak bone mineral density for age- and gender- matched subject. Lumbar Spine (L1-L4): BMD (gm/cm2): 1.291 T-Score: 0.9 Left Hip: BMD (gm/cm2): 1.028 T-Score: O.2 Left Femoral Neck: BMD (gm/cm2): 0.867 T-Score: -1.2 Right Hip: BMD (gm/cm2): 1.026 T-Score: .1 Right Femoral Neck: BMD (gm/cm2): 0.879 T-Score: -1.1 IMPRESSION: 1. Lumbar spine indicates no osteopenia or osteoporosis. 2. Both femoral necks indicate early osteopenia. REFERENCE: In children, postmenopausal women and males under age 50 not at increased risk for fractures, only Z-Scores, not T-Scores, are used to indicate fracture risk. A Z-Score above -2.0 is defined as within the expected range for age and Z-Score at or less than -2.0 is below the expected range for age. A Z-Score below the expected range for age in a patient with recent fractures and/or chronic corticosteroid treatment is consistent with a diagnosis of osteoporosis. In postmenopausal women and males over 50, comparison of the measured bone mineral density with the average value in young normal subjects (the T-Score) has been found to be useful in assessing fracture risk. Fracture risk approximately doubles for each 1.0 standard deviation (SD) that the individual's hip or spine bone mineral density is below the average value of young normal subjects. The World health Organization (WHO) has provided the following definitions: 1. Normal: T-Score within one standard deviation of young adult mean value (T-Score greater than -1.0). 2. Osteopenia (low bone mass): T-Score more than one standard deviation below the young adult mean but less than 2.5 standard deviations below the young adult mean (T-Score between -1.0 and -2.5). 3. Osteoporosis: T-Score more than 2.5 standard deviations below the young adult mean (T-Score less than -2.5). 4. Sever Osteoporosis (established osteoporosis): T-Score more than 2.5 standard deviations below young adult and one or more fragility fracture (T-Score less than -2.5 + fragility fractures). Electronically authenticated by: JACKELIN HODGE Date: 2021-06-24 11:38 Normal [facility] XR Chest 2 Viewson 2 XR Chest 2 Views Chest 2-Views CLINICAL INDICATION: follow up covid pneumonia, follow up covid pneumonia COMPARISON: 01/26/2021. FINDINGS: There is no evidence of cardiomegaly or pulmonary vascular congestion. No typical consolidation, pleural effusion or pneumothorax is identified. The bony thorax appears grossly intact. Thoracic spondylosis. Right shoulder rotator cuff repair. IMPRESSION: No acute cardiopulmonary finding. Final Dictated by: John Wright MD Dictated DT/TM: 03/18/2021 5:31 pm Signed by: John Wright MD Signed (Electronic Signature): 03/18/2021 5:32 pm (If Report Is Signed, Electronically Signed in Other Vendor System) Normal [facility] .eGFRon 01-26-2021 eGFR Non-AA >60 Normal >=60 [facility] Comment on above: Order Comment: Order added by Discern rule Result Comment: Stag es of Chronic Kidney Disease GFR Stage 3a Mild to moderate loss of kidney function 59 to 45 Stage 3b Moderate to severe loss of kidney function 44 to 33 Stage 4 Severe loss of kidney function 29 to 15 Stage 5 Kidney failure Less than 15 GFR calculated using the CKD-EPI Creatinine Equation (2009): eGFR = 141 X min(SCr/?, 1)? X max(SCr /?, 1)-1.209 X 0.993Age X 1.018 [if female] X 1.159 [if Black] Abbreviations/Units: eGFR (estimated glomerular filtration rate) = mL/min/1.73 m2 SCr (standardized serum creatinine) = mg/dL ? = 0.7 (females) or 0.9 (males) ? = -0.329 (females) or -0.411 (males) min = indicates the minimum of SCr/? or 1 max = indicates the maximum of SCr/? or 1 age = years Performed By: #### E GFR #### [place] [address] eGFR AA >60 Normal >=60 [facility] Comment on above: Order Comment: Order added by Discern rule Result Comment: See comment. Performed By: #### E GFR #### [place] [address] AMI Initon 01-26-2021 Initial Myoglobin 35.8 ng/mL Normal 14.3-65.8 [facility] Comment on above: Performed By: #### A MI1 #### [place] [address] Initial Troponin <0.03 Normal 0.00-0.03 [facility] Comment on above: Result Comment: An i ncreased Troponin-I value, in the absence of myocardial ischemia, may indicate other etiologies of cardiac damage. Performed By: #### A MI1 #### [place] [address] CBC w/ Diffon 01-26-2021 Erythrocyte distribution width (RBC) [Ratio] 13.1 % Normal 11.6-14.8 [facility] Comment on above: Performed By: #### C BC #### [place] [address] Hematocrit (Bld) [Volume fraction] 37.4 % Normal 36.0-46.0 [facility] Comment on above: Performed By: #### C BC #### [place] [address] Hemoglobin (Bld) [Mass/Vol] 13.1 g/dL Normal 12.0-16.0 [facility] Comment on above: Performed By: #### C BC #### [place] [address] MCH (RBC) [Entitic mass] 30.2 pg Normal 27.0-35.0 [facility] Comment on above: Performed By: #### C BC #### [place] [address] MCHC 35.0 % Normal 31.0-37.0 [facility] Comment on above: Performed By: #### C BC #### [place] [address] MCV (RBC) [Entitic vol] 86.2 fL Normal 80.0-100.0 [facility] Comment on above: Performed By: #### C BC #### [place] [address] Platelet 196 x10*3/mcL Normal 150-350 [facility] Comment on above: Performed By: #### C BC #### [place] [address] Platelet mean volume (Bld) [Entitic vol] 7.4 fL Low 7.5-11.5 [facility] Comment on above: Performed By: #### C BC #### [place] [address] RBC 4.34 x10*6/mcL Normal 3.80-5.20 [facility] Comment on above: Performed By: #### C BC #### [place] [address] WBC 5.0 x10*3/mcL Normal 4.5-11.0 [facility] Comment on above: Performed By: #### C BC #### [place] [address] CMPon 01-26-2021 Albumin [Mass/Vol] 3.6 g/dL Low 3.7-5.3 [facility] Comment on above: Performed By: #### C OMP #### [place] [address] Albumin/Globulin [Mass ratio] 1.2 {ratio} Normal 1.1-2.2 [facility] Comment on above: Performed By: #### C OMP #### [place] [address] Alk Phos 68 IU/L Normal 34-104 [facility] Comment on above: Performed By: #### C OMP #### [place] [address] ALT [Catalytic activity/Vol] 21 U/L Normal 7-52 [facility] Comment on above: Performed By: #### C OMP #### [address] [address] Anion gap [Moles/Vol] 11 mmol/L Normal 7-17 [facility] Comment on above: Performed By: #### C OMP #### [place] [address] AST [Catalytic activity/Vol] 19 U/L Normal 13-39 [facility] Comment on above: Performed By: #### C OMP #### [place] [address] Bili Total 0.8 mg/dL Normal 0.3-1.0 [facility] Comment on above: Performed By: #### C OMP #### [place] [address] Calcium [Mass/Vol] 8.9 mg/dL Normal 8.6-10.3 [facility] Comment on above: Performed By: #### C OMP #### [place] [address] Chloride 105 IU/L Normal 98-107 [facility] Comment on above: Performed By: #### C OMP #### [place] [address] CO2 [Moles/Vol] 27 mmol/L Normal 21-31 [facility] Comment on above: Performed By: #### C OMP #### [place] [address] Creatinine [Mass/Vol] 0.7 mg/dL Normal 0.6-1.2 [facility] Comment on above: Performed By: #### C OMP #### [place] [address] Glucose [Mass/Vol] 105 mg/dL High 70-99 [facility] Comment on above: Performed By: #### C OMP #### [place] [address] Potassium [Moles/Vol] 3.4 mmol/L Normal 3.4-4.8 [facility] Comment on above: Performed By: #### C OMP #### [place] [address] Protein [Mass/Vol] 6.6 g/dL Normal 6.0-8.3 [facility] Comment on above: Performed By: #### C OMP #### [place] [address] Sodium [Moles/Vol] 140 mmol/L Normal 136-145 [facility] Comment on above: Performed By: #### C OMP #### [place] [address] Urea nitrogen [Mass/Vol] 10 mg/dL Normal 7-25 [facility] Comment on above: Performed By: #### C OMP #### [place] [address] Urea nitrogen/Creatinine [Mass ratio] 14.3 mg/mg Normal 10.0-20.0 [facility] Comment on above: Performed By: #### C OMP #### [place] [address] COV19 Rapidon 01-26-2021 Employed in healthcare? No Normal [facility] Comment on above: Performed By: #### C [id number] #### [place] [address] Group care resident? No Normal [facility] Comment on above: Performed By: #### C [id number] #### [place] [address] In ICU? No [facility] Comment on above: Performed By: #### C [id number] #### [place] [address] status? Not [facility] Comment on above: Performed By: #### C [id number] #### [address] [address] Reason for Rapid Test COVID Exposure Normal [facility] Comment on above: Performed By: #### C [id number] #### [address] [address] SARS-CoV-2 (COVID-19) RNA JAYY+probe Ql (Unsp spec) Positive Critically abnormal Negative [facility] Comment on above: Result Comment: Test completion time: 1554 Called date and time: 01/26/2021 15:54:14 EST Result called to and read back by: LINDA SALAS RN, [facility] (First, Last, Title, Location) The 2019 novel coronavirus SARS-CoV-2 target nucleic acids are detected. This test is for the detection of SARS-CoV-2 RNA. Positive results are indicative of active infection with SARS-CoV-2. Positive results do not rule out bacterial infection or co-infection with other viruses. Negative results should be treated as presumptive and, if inconsistent with clinical signs and symptoms or necessary for patient management, should be tested with an alternative molecular assay.Negative results do not preclude SARS-CoV-2 infection and should not be used as the sole basis for treatment or other patient management decisions. Clinical correlation with patient history and other diagnostic information is necessary to determine patient infection status. ADDITIONAL INFORMATION: Testing was performed using the ID NOW COVID-19 test by [employer], which has received Emergency Use Authorization (EUA) by the U.S. Food and Drug Administration. The [place] ID NOW COVID-19 test performs best when patients are tested within the first 7 days of symptom onset. Results should be interpreted with caution for asymptomatic patients or those tested outside the 7 day target. Refer to CDC guidelines for further testing algorithms. Fact sheets for this Emergency Use Authorization (EUA) assay can be found at the following links: Fact Sheet for HealthCare Providers: https://www.fda.gov/media/266837/download Fact Sheet for Patients: https://www.fda.gov/media/889756/download Performed By: #### C [id number] #### [address] [address] SARS-CoV-2 (COVID-19) RNA JAYY+probe Ql (Unsp spec) No Normal [facility] Comment on above: Performed By: #### C [id number] #### [place] [address] Symptomatic as defined by [facility]? Yes Normal [facility] Comment on above: Performed By: #### C [id number] #### [place] [address] Diff Autoon 01-26-2021 Baso Absolute 0.0 x10*3/mcL Normal 0.0-0.2 [facility] Comment on above: Performed By: #### . Automated Diff #### [place] [address] Basophils/100 WBC (Bld) 0.4 % Normal 0.0-1.5 [facility] Comment on above: Performed By: #### . Automated Diff #### [place] [address] Eos Absolute 0.1 x10*3/mcL Normal 0.0-0.4 [facility] Comment on above: Performed By: #### . Automated Diff #### [place] [address] Eosinophils/100 WBC (Bld) 1.3 % Normal 0.0-5.4 [facility] Comment on above: Performed By: #### . Automated Diff #### [place] [address] Lymph Absolute 1.0 x10*3/mcL Normal 1.0-4.8 [facility] Comment on above: Performed By: #### . Automated Diff #### [place] [address] Lymphocytes/100 WBC (Bld) 19.2 % Low 27.2-40.8 [facility] Comment on above: Performed By: #### . Automated Diff #### [place] [address] [place] Absolute 0.6 x10*3/mcL Normal 0.1-1.1 [facility] Comment on above: Performed By: #### . Automated Diff #### [address] [address] Monocytes/100 WBC (Bld) 12.4 % High 3.7-11.9 [facility] Comment on above: Performed By: #### . Automated Diff #### [address] [address] Neutro Absolute 3.3 x10*3/mcL Normal 1.8-7.7 [facility] Comment on above: Performed By: #### . Automated Diff #### [place] [address] Neutro Auto 66.7 % Normal 47.2-70.8 [facility] Comment on above: Performed By: #### . Automated Diff #### [place] [address] ED Clinical Summaryon 2020 ED Clinical Summary (Inserted Image. Polina ble to display) [address] [address] ED Clinical Summary Person Information Name: Claudette Hernandes/[facility] Age: 65 Years : 1955 Sex: Female PCP: Nidhi Michaels MD Marital Status: Single Phone: Race: White Ethnicity: Not or Language: American Visit Reason: Chest pain; Chest pain - Cardiac Acuity: 3 Enc Type: Emergency Med Service: Emergency Medicine Arrival: 01/26/2021 13:48:22 Discharge: 01/26/2021 17:06:00 LOS: 000 03:18 Checkin: 01/26/2021 13:48:22 Checkout: 01/26/2021 17:06:00 Dispo Type: Home or Self Care Address: [address] [place] [address] Provider Notes: Diagnosis: 1:Pneumonia due to COVID-19 virus; 2:Acute chest wall pain Problems No Problems Documented Smoking Status: Functional Status: Sensory Deficits: History of Falls: Mobility Assistance Prior to Admission: ADLs: Current Level of Assistance for Self-Care/Mobility: Cognitive Status: Allergies codeine (Hives) Laboratory or Other Results This Visit (last charted value for your 01/26/2021 visit) Hematology 01/26/2021 2:14 PM WBC: 5.0 x10 RBC: 4.34 x10 Neutro Auto: 66.7 % -- Normal range between ( 47.2 and 70.8 ) Lymph Auto: 19.2 % -- Normal range between ( 27.2 and 40.8 ) [place] Auto: 12.4 % -- Normal range between ( 3.7 and 11.9 ) Eos Auto: 1.3 % -- Normal range between ( 0.0 and 5.4 ) Basophil Auto: 0.4 % -- Normal range between ( 0.0 and 1.5 ) Baso Absolute: 0.0 x10 MCV: 86.2 fL -- Normal range between ( 80.0 and 100.0 ) MCHC: 35.0 % -- Normal range between ( 31.0 and 37.0 ) Lymph Absolute: 1.0 x10 Hct: 37.4 % -- Normal range between ( 36.0 and 46.0 ) [place] Absolute: 0.6 x10 MCH: 30.2 pg -- Normal range between ( 27.0 and 35.0 ) Neutro Absolute: 3.3 x10 Hgb: 13.1 g/dL -- Normal range between ( 12.0 and 16.0 ) Mean Platelet Volume: 7.4 fL -- Normal range between ( 7.5 and 11.5 ) Platelet: 196 x10 Eos Absolute: 0.1 x10 RDW: 13.1 % -- Normal range between ( 11.6 and 14.8 ) Chemistry 01/26/2021 2:14 PM Creatinine Lvl: 0.7 mg/dL -- Normal range between ( 0.6 and 1.2 ) BUN: 10 mg/dL -- Normal range between ( 7 and 25 ) Glucose Lvl: 105 mg/dL -- Normal range between ( 70 and 99 ) Potassium Lvl: 3.4 mmol/L -- Normal range between ( 3.4 and 4.8 ) AST: 19 IU/L -- Normal range between ( 13 and 39 ) ALT: 21 IU/L -- Normal range between ( 7 and 52 ) Sodium Lvl: 140 mmol/L -- Normal range between ( 136 and 145 ) Calcium Lvl: 8.9 mg/dL -- Normal range between ( 8.6 and 10.3 ) Albumin Lvl: 3.6 g/dL -- Normal range between ( 3.7 and 5.3 ) Total Protein: 6.6 g/dL -- Normal range between ( 6.0 and 8.3 ) Bili Total: 0.8 mg/dL -- Normal range between ( 0.3 and 1.0 ) Alk Phos: 68 IU/L -- Normal range between ( 34 and 104 ) Chloride: 105 IU/L -- Normal range between ( 98 and 107 ) CO2: 27 mmol/L -- Normal range between ( 21 and 31 ) Anion Gap: 11 -- Normal range between ( 7 and 17 ) eGFR Non-AA: >60 mL/min/1.73m? eGFR AA: >60 mL/min/1.73m? BUN Crea Ratio: 14.3 -- Normal range between ( 10.0 and 20.0 ) AG Ratio: 1.2 -- Normal range between ( 1.1 and 2.2 ) Initial Troponin: <0.03 ng/mL -- Normal range between ( 0.00 and 0.03 ) Initial Myoglobin: 35.8 ng/mL -- Normal range between ( 14.3 and 65.8 ) Molecular 01/26/2021 3:29 PM SARS-CoV-2 RNA Detection: Positive Diagnostic Radiology 01/26/2021 2:45 PM XR Chest 1 View: XR Chest 1 View Measurements: Height: Weight: 90.4 kg Blood Pressure: /80 mmHg BMI: Procedures Neck Foot Elbow Hysterectomy Immunizations No Immunizations Documented This Visit Final Med List: New Medications [facility]/pharmacy #[id number], [address] [place], [place] [id number], [phone] hydrocodone-acetaminophen (Stoutland 5 mg-325 mg oral tablet) 1 Tabs Oral (given by mouth) every 4 hours as needed for pain for 3 Days. Refills: 0. Last Dose: predniSONE (predniSONE 10 mg oral tablet) 6-5-4-3-2-1. Refills: 0. Last Dose: Medications that have not changed Other Medications benzonatate (Tessalon Perles) Oral (given by mouth) 3 times a day. Last Dose: sertraline (Zoloft) 100 Milligram Oral (given by mouth) 2 times a day. Last Dose: [facility]/pharmacy #[id number], [address] [place] [address], [place] [id number], [phone] hydrocodone-acetaminophen (Stout[place] 5 mg-325 mg oral tablet) 1 Tabs Oral (given by mouth) every 4 hours as needed for pain for 3 Days. Refills: 0. predniSONE (predniSONE 10 mg oral tablet) 6-5-4-3-2-1. Refills: 0. Other Medications benzonatate (Tessalon Perles) Oral (given by mouth) 3 times a day. sertraline (Zoloft) 100 Milligram Oral (given by mouth) 2 times a day. Care Team Members: Attending Physician: Chandni ALANIZ, Slick Jacob Consulting Physician: Referring Physician: Provider Role Assigned Unassigned Chandni (more content not included)... Normal [facility] ED Note-Physicianon 01-27-20 ED Note-Physician Chief Complaint Chest pain started 3 weeks ago. I was tested Monday for Covid and it was negative. History of Present Illness This is a 65 years old lady who presented to the ER stating that she is having chest pain due to cough. The patient's condition has been going on for the last 3 weeks. The patient noticed that her condition is getting worse, so she went and tested for COVID-19 3 days ago and it came back negative. The patient stated that her condition is associated with shortness of breath and fatigue. Review of Systems Constitutional: No fever. Cardiovascular: Chest pain, but no palpitations. Respiratory: Cough, shortness of breath and sometimes wheezings. GI: No Vomiting, No Diarrhea, No Abdominal Pain. All other systems reviewed and are negative. Physical Exam Vital signs were reviewed. Nurse's notes were reviewed and I agree with what was documented. CONSTITUTIONAL: Ill-appearing in mild to moderate discomfort. SKIN: Warm, dry, and intact without rash. EYES: Extraocular movements are grossly intact, clear conjunctiva, pupils equal round reactive to light. HENT: Normocephalic, atraumatic, moist mucus membranes, oropharynx normal, nasal mucosa normal, external ears are normal. NECK: No obvious swelling, normal range of motion, no adenopathy. PULMONARY: Decreased breathing sounds, scattered rhonchi and rales, the patient was not using accessory muscles for breathing. CARDIOVASCULAR: Normal rate, regular rhythm, normal S1 and S2. No appreciated murmurs. GASTROINSTESTINAL: No distention, soft abdomen, no tenderness, normal bowel sounds. GENITOURINARY: No CVA tenderness bilaterally. NEUROLOGIC: Alert, awake, and oriented ?3, normal speech, moves all extremities with normal strength, normal coordination and balance. MUSCULOSKELETAL: No gross deformities, atraumatic. PSYCHIATRIC: Anxious mood and normal affect. Vitals & Measurements T: 36.5 ?C (Oral) HR: 78 (Peripheral) HR: 78 (Monitored) RR: 20 BP: 113/73 SpO2: 97% WT: 90.4 kg (Dosing) Additional Vitals No qualifying data available. Procedure No qualifying data available. ASA Documentation Medical Decision Making The patient was seen and examined by myself at the bedside. An EKG was done and it came back not showing any acute pathology. Chest x-ray came back showing signs of viral pneumonia. The patient was checked for COVID-19 which came back positive. Blood work including CBC, CMP, myoglobin and troponin came back not showing any acute pathology. The patient's pulse ox was within normal range all the time in the ER. The patient then was sent home with instructions for COVID-19 and was given pulse ox to monitor. The patient was told to follow-up with her primary care provider as needed or return to the ER if her condition is worsening. Assessment/Plan 1. Pneumonia due to COVID-19 virus Ordered: hydrocodone-acetaminophen, 1 tabs, Oral, q4hr, PRN, X 3 days, # 18 tabs, 0 Refill(s), 01/29/21 17:00:00 EST, Pharmacy: [facility] #[id number] 2. Acute chest wall pain Ordered: hydrocodone-acetaminophen, 1 tabs, Oral, q4hr, PRN, X 3 days, # 18 tabs, 0 Refill(s), 01/29/21 17:00:00 EST, [facility]acy: [facility] #[id number] Orders: predniSONE, See Instructions, 6-5-4-3-2-1, # 21 tabs, 0 Refill(s), Pharmacy: [facility]/pharmacy #[id number] - ED Professional Level 4 Discharge Patient Refresh vitals and sections below: Problem List/Past Medical History Ongoing Depression Hypertension Hypothyroid Historical No qualifying data Procedure/Surgical History Elbow Foot Hysterectomy Neck Medications Inpatient No active inpatient medications Home [place] 5 mg-325 mg oral tablet, 1 tabs, Oral, q4hr, PRN predniSONE 10 mg oral tablet, See Instructions Tessalon Perles, Oral, TID Zoloft, 100 mg, Oral, BID Allergies codeine (Hives) Social History Alcohol Never Substance Abuse Denies All Tobacco Never (less than 100 in lifetime) Use:. Lab Results Automated Hematology LATEST RESULTS WBC 01/26/21 14:14 5.0 RBC 01/26/21 14:14 4.34 Hgb 01/26/21 14:14 13.1 Hct 01/26/21 14:14 37.4 MCV 01/26/21 14:14 86.2 MCH 01/26/21 14:14 30.2 MCHC 01/26/21 14:14 35.0 RDW 01/26/21 14:14 13.1 Platelet 01/26/21 14:14 196 Mean Platelet Volume 01/26/21 14:14 7.4 Low Neutro Auto 01/26/21 14:14 66.7 Lymph Auto 01/26/21 14:14 19.2 Low [place] Auto 01/26/21 14:14 12.4 High Eos Auto 01/26/21 14:14 1.3 Basophil Auto 01/26/21 14:14 0.4 Neutro Absolute 01/26/21 14:14 3.3 Lymph Absolute 01/26/21 14:14 1.0 [place] Absolute 01/26/21 14:14 0.6 Eos Absolute 01/26/21 14:14 0.1 Baso Absolute 01/26/21 14:14 0.0 Routine Chemistry LATEST RESULTS Sodium Lvl 01/26/21 14:14 140 Potassium Lvl 01/26/21 14:14 3.4 Chloride 01/26/21 14:14 105 CO2 01/26/21 14:14 27 Anion Gap 01/26/21 14:14 11 Glucose Lvl 01/26/21 14:14 105 High BUN 01/26/21 14: (more content not included)... Normal [facility] TSH reflex Free T4on 021 TSH reflex Free T4 1.935 mcIU/mL Normal 0.490-4. 67 0 [facility] Comment on above: Performed By: #### L 404.9100, L404.7150, L400.0065 #### Main Laboratory ([facility]) [address] [place] [address] Arnulfo Little MD Vitamin B12on 10-27-2020 Cobalamin (Vitamin B12) [Mass/Vol] 135 pg/mL Low 180-914 [facility] Comment on above: Result Comment: B12 level of 145 - 180 is considered Indeterminate and level of <145 is considered Deficient. Performed By: #### L 404.9100, L404.7150, L400.0065 #### Main Laboratory ([facility]) [address] [place] [address] Arnulfo Little MD Vitamin D,25-hydroxy (Total) on 10-27-2020 25(OH) Vitamin D,Total 28.50 ng/mL Low 30.00-100. 00 [facility] Comment on above: Result Comment: Opti mal values are established by the Clinical Guidelines Subcommittee of the Endocrine Society Task Force. (Journal of Clinical Endocrinology & Metabolism,2011;96) Status Vitamin D Concentration Range ------- Deficient <20 Insufficient 20 - 30 Sufficient 30 - 100 Performed By: #### L 404.9100, L404.7150, L400.0065 #### Main Laboratory ([facility]) [address] [place] [address] Arnulfo Little MD Vitamin D,1,25-Dihydroxyon 0 10-21-2020 Vitamin D,1,25-Dihydroxy 74 pg/mL Normal 18-78 [facility] Comment on above: Result Comment: ---- ADDITIONAL INFORMATION This test was developed and its performance characteristics determined by [facility] in a manner consistent with CLIA requirements. This test has not been cleared or approved by the U.S. Food and Drug Administration. Test Performed by: [facility] [address] [place] [address] It Network Administrator: Rakan Kim M.D. Ph.D.; CLIA# [id number] Performed By: #### L 922.1720 #### [facility] [address] [place] [address] CBC with Differentialon 09-21 Abs Baso Count 0 /cmm Normal 0-200 [facility] Comment on above: Performed By: #### L 100.0000 #### Main Laboratory ([facility]) [address] [place] [address] Arnulfo Little MD Abs Eos Count 100 /cmm Normal 0-500 [facility] Comment on above: Performed By: #### L 100.0000 #### Main Laboratory ([facility]) [address] [place] [id number] Arnulfo Little MD Abs Lymph Count 1500 /cmm Normal 6087-9825 [facility] Comment on above: Performed By: #### L 100.0000 #### Main Laboratory ([facility]) [address] [place] [address] Arnulfo Little MD Abs [place] Count 400 /cmm Normal 0-800 [facility] Comment on above: Performed By: #### L 100.0000 #### Main Laboratory ([facility]) [address] [place] [id number] Arnulfo Little MD Abs Neut Count 3900 /cmm Normal 7390-3925 [facility] Comment on above: Performed By: #### L 100.0000 #### Main Laboratory ([facility]) [address] [place] [address] Arnulfo Little MD Basophils/100 WBC (Bld) 0.5 % Normal 0-2 [facility] Comment on above: Performed By: #### L 100.0000 #### Main Laboratory ([facility]) [address] [place] [address] Arnulfo Little MD EOS-Auto Diff 1.5 % Normal 0-6 [facility] Comment on above: Performed By: #### L 100.0000 #### Main Laboratory ([facility]) [address] [place] [address] Arnulfo Little MD Erythrocyte distribution width (RBC) [Ratio] 13.7 % Normal 12.0-16.0 [facility] Comment on above: Performed By: #### L 100.0000 #### Main Laboratory ([facility]) [address] [place] [address] Arnulfo Little MD Hematocrit (Bld) [Volume fraction] 39.3 % Normal 35.0-44.0 [facility] Comment on above: Performed By: #### L 100.0000 #### Main Laboratory ([facility]) [address] [place] [address] Arnulfo Little MD Hemoglobin (Bld) [Mass/Vol] 13.7 g/dL Normal 12.0-15.0 [facility] Comment on above: Performed By: #### L 100.0000 #### Main Laboratory ([facility]) [address] [place] [address] Arnulfo Little MD Lymphocytes/100 WBC (Bld) 25.3 % Normal 15-45 [facility] Comment on above: Performed By: #### L 100.0000 #### Main Laboratory ([facility]) [address] [place] [address] Arnulfo Little MD MCH (RBC) [Entitic mass] 30.9 pg Normal 27.5-33.0 [facility] Comment on above: Performed By: #### L 100.0000 #### Main Laboratory ([facility]) [address] [place] [address] Arnulfo Little MD MCHC (RBC) [Mass/Vol] 34.9 g/dL Normal 33.0-36.0 [facility] Comment on above: Performed By: #### L 100.0000 #### Main Laboratory ([facility]) [address] [place] [address] Arnulfo Little MD MCV 88.6 CU JAMES Normal 80-97 [facility] Comment on above: Performed By: #### L 100.0000 #### Main Laboratory ([facility]) [address] [place] [address] Arnulfo Little MD [place]- Auto Diff 6.8 % Normal 2-10 [facility] Comment on above: Performed By: #### L 100.0000 #### Main Laboratory ([facility]) [address] [place] [address] Arnulfo Little MD Neut-Auto Diff 65.9 % Normal 40-70 [facility] Comment on above: Performed By: #### L 100.0000 #### Main Laboratory ([facility]) [address] [place] [address] Arnulfo Little MD NRBC-Auto 0.1 /100 WBC Normal <1 [facility] Comment on above: Performed By: #### L 100.0000 #### Main Laboratory ([facility]) [address] [place] [address] Arnulfo Little MD Platelet Count 201 th/cmm Normal 150-400 [facility] Comment on above: Performed By: #### L 100.0000 #### Main Laboratory ([facility]) [address] [place] [address] Arnulfo Little MD RBC 4.44 mil/cmm Normal 4.00-5.10 [facility] Comment on above: Performed By: #### L 100.0000 #### Main Laboratory ([facility]) [address] [place] [address] Arnulfo Little MD WBC 5.9 th/cmm Normal 4.4-10.5 [facility] Comment on above: Performed By: #### L 100.0000 #### Main Laboratory ([facility]) [address] [place] [address] Arnulfo Little MD Comprehensive Metabolic Pane sandeep 10-16-2020 Albumin [Mass/Vol] 3.9 g/dL Normal 3.5-5.0 [facility] Comment on above: Order Comment: Is Pa tient Fasting? Yes Performed By: #### L 400.0076, L400.0400 #### Main Laboratory ([facility]) [address] [place] [address] Arnulfo Little MD Albumin/Globulin [Mass ratio] 1.3 {ratio} Low 1.5-2.5 [facility] Comment on above: Order Comment: Is Pa tient Fasting? Yes Performed By: #### L 400.0076, L400.0400 #### Main Laboratory ([facility]) [address] [place] [address] Arnulfo Little MD Alk Phos 83 IU/L Normal 39-118 [facility] Comment on above: Order Comment: Is Pa tient Fasting? Yes Performed By: #### L 400.0076, L400.0400 #### Main Laboratory ([facility]) [address] [place] [address] Arnulfo Little MD ALT [Catalytic activity/Vol] 16 U/L Normal 10-40 [facility] Comment on above: Order Comment: Is Pa tient Fasting? Yes Performed By: #### L 400.0076, L400.0400 #### Main Laboratory ([facility]) [address] [place] [id number] Arnulfo Little MD Anion gap [Moles/Vol] 8 mmol/L Normal 4-12 [facility] Comment on above: Order Comment: Is Pa tient Fasting? Yes Performed By: #### L 400.0076, L400.0400 #### Main Laboratory ([facility]) [address] [place] [address] Arnulfo Little MD AST [Catalytic activity/Vol] 15 U/L Normal 15-41 [facility] Comment on above: Order Comment: Is Pa tient Fasting? Yes Performed By: #### L 400.0076, L400.0400 #### Main Laboratory ([facility]) [address] [place] [address] Arnulfo Little MD Bili,Total 0.6 mg/dL Normal 0.2-1.0 [facility] Comment on above: Order Comment: Is Pa tient Fasting? Yes Performed By: #### L 400.0076, L400.0400 #### Main Laboratory ([facility]) [address] [place], [facility] Arnulfo Little MD Calcium [Mass/Vol] 9.20 mg/dL Normal 8.8-10.5 [facility] Comment on above: Order Comment: Is Pa tient Fasting? Yes Performed By: #### L 400.0076, L400.0400 #### Main Laboratory ([facility]) [address] [place] [address] Arnulfo Little MD Chloride [Moles/Vol] 105 mmol/L Normal 101-111 [facility] Comment on above: Order Comment: Is Pa tient Fasting? Yes Performed By: #### L 400.0076, L400.0400 #### Main Laboratory ([facility]) [address] [place] [address] Arnulfo Little MD CO2 [Moles/Vol] 29 mmol/L Normal 21-32 [facility] Comment on above: Order Comment: Is Pa tient Fasting? Yes Performed By: #### L 400.0076, L400.0400 #### Main Laboratory ([facility]) [address] [place] [address] Arnulfo Little MD Creatinine [Mass/Vol] 0.85 mg/dL Normal 0.60-1.30 [facility] Comment on above: Order Comment: Is Pa tient Fasting? Yes Performed By: #### L 400.0076, L400.0400 #### Main Laboratory ([facility]) [address] [place] [address] Arnulfo Little MD GFR Calculation > 60 Normal [facility] Comment on above: Order Comment: Is Pa tient Fasting? Yes Result Comment: [facility] marky Kidney Disease stages by NKDF Stage eGFR I >90 II 60-89 III 30-59 IV 15-29 V <15 or dialysis AGE(years) AVERAGE GFR 60-69 85 ml/min/1.73 square meters Note:This result is normalized to 1.73 square meter body surface area. Height and weight are not factored. Performed By: #### L 400.0076, L400.0400 #### Main Laboratory ([facility]) [address] [place] [address] Arnulfo Little MD Glucose [Mass/Vol] 100 mg/dL Normal 70-110 [facility] Comment on above: Order Comment: Is Pa tient Fasting? Yes Result Comment: *Thi s reference range applies to fasting specimens only. Performed By: #### L 400.0076, L400.0400 #### Main Laboratory ([facility]) [address] [place] [address] Arnulfo Little MD Potassium [Moles/Vol] 3.7 mmol/L Normal 3.6-5.0 [facility] Comment on above: Order Comment: Is Pa tient Fasting? Yes Performed By: #### L 400.0076, L400.0400 #### Main Laboratory ([facility]) [address] [place] [address] Arnulfo Little MD Protein [Mass/Vol] 6.8 g/dL Normal 6.2-8.0 [facility] Comment on above: Order Comment: Is Pa tient Fasting? Yes Performed By: #### L 400.0076, L400.0400 #### Main Laboratory ([facility]) [address] [place] [address] Arnulfo Little MD Sodium [Moles/Vol] 142 mmol/L Normal 135-145 [facility] Comment on above: Order Comment: Is Pa tient Fasting? Yes Performed By: #### L 400.0076, L400.0400 #### Main Laboratory ([facility]) [address] [place] [address] Arnulfo Little MD Urea nitrogen [Mass/Vol] 10 mg/dL Normal 7-20 [facility] Comment on above: Order Comment: Is Pa tient Fasting? Yes Performed By: #### L 400.0076, L400.0400 #### Main Laboratory ([facility]) [address] [place] [id number] Arnulfo Little MD Lipid Panelon 10-16-2020 Chol/HDL Risk 4.0 Normal 4.0-4.4 [facility] Comment on above: Order Comment: Is Pa tient Fasting? Yes Performed By: #### L 400.0076, L400.0400 #### Main Laboratory ([facility]) [address] [place] [address] Arnulfo Little MD Cholesterol [Mass/Vol] 160 mg/dL Normal <200 [facility] Comment on above: Order Comment: Is Pa tient Fasting? Yes Performed By: #### L 400.0076, L400.0400 #### Main Laboratory ([facility]) [address] [place] [address] Arnulfo Little MD Cholesterol in HDL [Mass/Vol] 40 mg/dL Normal [facility] Comment on above: Order Comment: Is Pa tient Fasting? Yes Result Comment: The National Cholesterol Education Program (NCEP) has set the following guidelines (reference values) for cholesterol, HDL: Low: <40 mg/dL Normal: 40-60 mg/dL High: >60 mg/dL Performed By: #### L 400.0076, L400.0400 #### Main Laboratory ([facility]) [address] [place] [address] Arnulfo Little MD Cholesterol in LDL [Mass/Vol] 104 mg/dL High [facility] Comment on above: Order Comment: Is Pa tient Fasting? Yes Result Comment: The National Cholesterol Education Program (NCEP) has set the following guidelines (reference values) for cholesterol, LDL: Desirable (optimal): <100 mg/dL Low Risk (near optimal): 100-129 mg/dL Borderline high: 130-159 mg/dL High: 160-189 mg/dL Very high: >=190 mg/dL Performed By: #### L 400.0076, L400.0400 #### Main Laboratory ([facility]) [address] [place] [address] Arnulfo Little MD Cholesterol in VLDL [Mass/Vol] 20 mg/dL Normal <39 [facility] Comment on above: Order Comment: Is Pa tient Fasting? Yes Performed By: #### L 400.0076, L400.0400 #### Main Laboratory ([facility]) [address] [place] [address] Arnulfo Little MD dLDL/HDL RISK 2.6 Normal <3.1 [facility] Comment on above: Order Comment: Is Pa tient Fasting? Yes Performed By: #### L 400.0076, L400.0400 #### Main Laboratory ([facility]) [address] [place] [address] Arnulfo Little MD Triglyceride [Mass/Vol] 102 mg/dL Normal <150 [facility] Comment on above: Order Comment: Is Pa tient Fasting? Yes Performed By: #### L 400.0076, L400.0400 #### Main Laboratory ([facility]) [address] [place] [id number] Arnulfo Little MD BASIC METABOLIC PANELon 01-1 5-2020 Calcium [Mass/Vol] 8.8 mg/dL Normal 8.6-10.3 [facility] Comment on above: Order Comment: No: D o not add to previous draw Performed By: #### 3 5200, 10524, 81178, 04937 #### [facility] [address] [place] [address], [place] Chloride [Moles/Vol] 106 mmol/L Normal 98-107 [facility] Comment on above: Order Comment: No: D o not add to previous draw Performed By: #### 3 5200, 10116, 26644, 51831 #### [facility] [address] [place] [address], [place] CO2 [Moles/Vol] 30 mmol/L Normal 21-31 [facility] Comment on above: Order Comment: No: D o not add to previous draw Performed By: #### 3 5200, 43458, 75290, 69885 #### [facility] [address] [place] [address], [place] Creatinine [Mass/Vol] 0.80 mg/dL Normal 0.60-1.20 [facility] Comment on above: Order Comment: No: D o not add to previous draw Performed By: #### 3 5200, 07446, 67991, 83030 #### [facility] [address] [place] [address], [place] GFR/1.73 sq M predicted among blacks MDRD (S/P/Bld) [Vol rate/Area] mL/min/{1.73_m2} Normal >60 [facility] Comment on above: Order Comment: No: D o not add to previous draw Performed By: #### 3 5200, 63018, 81916, 91901 #### [facility] [address] [place] [address], [place] GFR/1.73 sq M predicted among non-blacks MDRD (S/P/Bld) [Vol rate/Area] mL/min/{1.73_m2} Normal >60 [facility] Comment on above: Order Comment: No: D o not add to previous draw Performed By: #### 3 5200, 26819, 29522, 51598 #### [facility] [address] [place] [address], [place] Glucose [Mass/Vol] 102 mg/dL High 70-100 [facility] Comment on above: Order Comment: No: D o not add to previous draw Performed By: #### 3 5200, 84370, 42825, 71032 #### [facility] [address] [place] [address], [place] Potassium [Moles/Vol] 3.9 mmol/L Normal 3.5-5.1 [facility] Comment on above: Order Comment: No: D o not add to previous draw Performed By: #### 3 5200, 67998, 40977, 45709 #### [facility] [address] [place] [address], [place] Sodium [Moles/Vol] 140 mmol/L Normal 136-145 [facility] Comment on above: Order Comment: No: D o not add to previous draw Performed By: #### 3 5200, 24409, 08917, 75661 #### [facility] [address] [place] [address], [place] Urea nitrogen [Mass/Vol] 12 mg/dL Normal 7-25 [facility] Comment on above: Order Comment: No: D o not add to previous draw Performed By: #### 3 5200, 35593, 83846, 17952 #### [facility] [address] [place] [address], [place] CBC COMPLETE BLOOD COUNTon 0 1-15-2019 Erythrocyte distribution width (RBC) [Ratio] 13.2 % Normal 11.5-15.0 [facility] Comment on above: Order Comment: No: D o not add to previous draw Performed By: #### 5 0608 #### [facility] [address] [place] [address], [facility] Hematocrit (Bld) [Volume fraction] 38.1 % Normal 36.0-45.0 [facility] Comment on above: Order Comment: No: D o not add to previous draw Performed By: #### 5 0608 #### [facility] [address] [place] [address], [facility] Hemoglobin (Bld) [Mass/Vol] 12.2 g/dL Normal 12.0-15.0 [facility] Comment on above: Order Comment: No: D o not add to previous draw Performed By: #### 5 0608 #### [facility] [address] [place] [address], [facility] MCH (RBC) [Entitic mass] 29.5 pg Normal 27.0-33.0 [facility] Comment on above: Order Comment: No: D o not add to previous draw Performed By: #### 5 0608 #### [facility] [address] [place] [address], [facility] MCHC (RBC) [Mass/Vol] 32.0 g/dL Normal 32.0-35.0 [facility] Comment on above: Order Comment: No: D o not add to previous draw Performed By: #### 5 0608 #### [facility] [address] [place] [address], [facility] MCV (RBC) [Entitic vol] 92.0 fL Normal 82.0-98.0 [facility] Comment on above: Order Comment: No: D o not add to previous draw Performed By: #### 5 0608 #### [facility] [address] [place] [address], [facility] Nucleated RBC/100 WBC (Bld) [Ratio] 0 % Normal 0-0 [facility] Comment on above: Order Comment: No: D o not add to previous draw Performed By: #### 5 0608 #### [facility] [address] [facility]. [address] PLAT CNT 159 10*3/uL Normal 150-400 [facility] Comment on above: Order Comment: No: D o not add to previous draw Performed By: #### 5 0608 #### [facility] [address] [facility] [place] [address], [facility] RBC (Bld) [#/Vol] 4.14 10*6/uL Normal 3.80-5.00 [facility] Comment on above: Order Comment: No: D o not add to previous draw Performed By: #### 5 0608 #### [facility] [address] [place] [address], [facility] WBC (Bld) [#/Vol] 6.23 10*3/uL Normal 4.00-10.60 [facility] Comment on above: Order Comment: No: D o not add to previous draw Performed By: #### 5 0608 #### [facility] [address] [facility]. [address] LIPID PROFILEon 03-06-2019 Cholesterol [Mass/Vol] 151 mg/dL Normal 120-200 [facility] Comment on above: Order Comment: No: D o not add to previous draw Result Comment: CHOL ESTEROL REFERENCE RANGE: 20 YEARS AND OLDER CARDIOVASCULAR RISK Less than 200 mg/dl Low Risk 200 to 239 mg/dl Borderline Risk 240 mg/dl and greater High Risk Performed By: #### 4 6413, 44817 #### [facility] [address] [facility]. [address] Cholesterol in HDL [Mass/Vol] 39 mg/dL Normal 23-92 [facility] Comment on above: Order Comment: No: D o not add to previous draw Result Comment: Slig ht variation in normal range could be due to gender and/or age. HDL CHOLESTEROL REFERENCE RANGE: 20 years and older Cardiovascular Risk > or =60 mg/dL Desirable 40 TO 59 mg/dL Low Risk <40 mg/dL High Risk Performed By: #### 4 4195, 69427 #### [facility] [address] [place] [address], [facility] Cholesterol in LDL [Mass/Vol] 90 mg/dL Normal 0-130 [facility] Comment on above: Order Comment: No: D o not add to previous draw Result Comment: LDL IS A CALCULATION LDL IS ONLY VALID IF THE TRIG IS LESS THAN 400. Performed By: #### 4 6413, 31978 #### [facility] [address] [place] [address], [facility] Cholesterol.total/Cho lesterol in HDL [Mass ratio] 3.9 {ratio} Normal 0.0-4.5 [facility] Comment on above: Order Comment: No: D o not add to previous draw Performed By: #### 4 0013, 58104 #### [facility] [address] [place] [address], [facility] NON-HDL CHOLESTEROL 112 mg/dL Normal [facility] Comment on above: Order Comment: No: D o not add to previous draw Performed By: #### 4 7013, 12685 #### [facility] [address] [place] [address], [facility] Triglyceride [Mass/Vol] 110 mg/dL Normal 40-149 [facility] Comment on above: Order Comment: No: D o not add to previous draw Result Comment: TRIG LYCERIDE REFERENCE RANGE: 20 YEARS AND OLDER CARDIOVASCULAR RISK LESS THAN 150 mg/dl LOW RISK 150 TO 199 mg/dl BORDERLINE RISK 200 mg/dl AND GREATER HIGH RISK Performed By: #### 4 8813, 26405 #### [facility] [address] [place] [address], [place] VLDL CHOL 22 mg/dL Normal 0-40 [facility] Comment on above: Order Comment: No: D o not add to previous draw Performed By: #### 4 6113, 10435 #### [facility] [address] [place] [address], [place] BASIC METABOLIC PANELon 02-20 Calcium [Mass/Vol] 8.8 mg/dL Normal 8.6-10.3 [facility] Comment on above: Order Comment: No: D o not add to previous draw Performed By: #### 3 5200, 35472, 31718, 25076 #### [facility] [address] [place] [address], [place] Chloride [Moles/Vol] 107 mmol/L Normal 98-107 [facility] Comment on above: Order Comment: No: D o not add to previous draw Performed By: #### 3 5200, 40139, 14060, 24338 #### [facility] [address] [place] [address], [place] CO2 [Moles/Vol] 26 mmol/L Normal 21-31 [facility] Comment on above: Order Comment: No: D o not add to previous draw Performed By: #### 3 5200, 32200, 95596, 73181 #### [facility] [address] [place] [address], [place] Creatinine [Mass/Vol] 0.87 mg/dL Normal 0.60-1.20 [facility] Comment on above: Order Comment: No: D o not add to previous draw Performed By: #### 3 5200, 83168, 45588, 98485 #### [facility] [address] [place] [address], [place] GFR/1.73 sq M predicted among blacks MDRD (S/P/Bld) [Vol rate/Area] mL/min/{1.73_m2} Normal >60 [facility] Comment on above: Order Comment: No: D o not add to previous draw Performed By: #### 3 5200, 19041, 57883, 04820 #### [facility] [address] [place] [address], [place] GFR/1.73 sq M predicted among non-blacks MDRD (S/P/Bld) [Vol rate/Area] mL/min/{1.73_m2} Normal >60 [facility] Comment on above: Order Comment: No: D o not add to previous draw Performed By: #### 3 5200, 94863, 28366, 80757 #### [facility] [address] [place] [address], [place] Glucose [Mass/Vol] 118 mg/dL High 70-100 [facility] Comment on above: Order Comment: No: D o not add to previous draw Performed By: #### 3 5200, 72323, 99733, 19304 #### [facility] [address] [place] [address], [place] Potassium [Moles/Vol] 4.0 mmol/L Normal 3.5-5.1 [facility] Comment on above: Order Comment: No: D o not add to previous draw Performed By: #### 3 5200, 19322, 21456, 88776 #### [facility] [address] [place] [address], [place] Sodium [Moles/Vol] 140 mmol/L Normal 136-145 [facility] Comment on above: Order Comment: No: D o not add to previous draw Performed By: #### 3 5200, 91013, 00469, 53631 #### [facility] [address] [place] [address], [place] Urea nitrogen [Mass/Vol] 13 mg/dL Normal 7-25 [facility] Comment on above: Order Comment: No: D o not add to previous draw Performed By: #### 3 5200, 06252, 18976, 44138 #### [facility] [address] [place] [address], [place] CBC COMPLETE BLOOD COUNTon 0 1-14-2019 Erythrocyte distribution width (RBC) [Ratio] 13.1 % Normal 11.5-15.0 [facility] Comment on above: Order Comment: No: D o not add to previous draw Performed By: #### 5 0608 #### [facility] [address] [place] [address], [place] Hematocrit (Bld) [Volume fraction] 36.8 % Normal 36.0-45.0 [facility] Comment on above: Order Comment: No: D o not add to previous draw Performed By: #### 5 0608 #### [facility] [address] [place] [address], [facility] Hemoglobin (Bld) [Mass/Vol] 12.1 g/dL Normal 12.0-15.0 [facility] Comment on above: Order Comment: No: D o not add to previous draw Performed By: #### 5 0608 #### [facility] [address] [place] [address], [facility] MCH (RBC) [Entitic mass] 29.3 pg Normal 27.0-33.0 [facility] Comment on above: Order Comment: No: D o not add to previous draw Performed By: #### 5 0608 #### [facility] [address] [place] [address], [facility] MCHC (RBC) [Mass/Vol] 32.9 g/dL Normal 32.0-35.0 [facility] Comment on above: Order Comment: No: D o not add to previous draw Performed By: #### 5 0608 #### [facility] [address] [place] [address], [facility] MCV (RBC) [Entitic vol] 89.1 fL Normal 82.0-98.0 [facility] Comment on above: Order Comment: No: D o not add to previous draw Performed By: #### 5 0608 #### [facility] [address] [facility] [place] [address], [facility] Nucleated RBC/100 WBC (Bld) [Ratio] 0 % Normal 0-0 [facility] Comment on above: Order Comment: No: D o not add to previous draw Performed By: #### 5 0608 #### [facility] [address] [place] [address], [facility] PLAT CNT 164 10*3/uL Normal 150-400 [facility] Comment on above: Order Comment: No: D o not add to previous draw Performed By: #### 5 0608 #### [facility] [address] [place] [address], [facility] RBC (Bld) [#/Vol] 4.13 10*6/uL Normal 3.80-5.00 [facility] Comment on above: Order Comment: No: D o not add to previous draw Performed By: #### 5 0608 #### [facility] [address] [place] [id number], [facility] WBC (Bld) [#/Vol] 6.30 10*3/uL Normal 4.00-10.60 [facility] Comment on above: Order Comment: No: D o not add to previous draw Performed By: #### 5 0608 #### [facility] [address] [facility]. [address] History and Physicalon 03-05 History and Physical MR#: [id number] [facility] Pt. Name: Claudette Hernandes Admitted: 03/05/2019 Date of : 1955 Attending Physician: Nitin Gonzalez MD Room #: 3AB [id number] Discharge Date: HISTORY AND PHYSICAL CHIEF COMPLAINT: Chest pain. HISTORY OF PRESENT ILLNESS: This is a 63-year-old female with past medical history significant for hypertension, dyslipidemia, hypothyroidism. 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 She reports that she was sitting on her chair when the episode started. It was 10/10 in intensity, associated with shortness of breath for which she called the EMS who gave her nitroglycerin sublingual, which helped a bit and then she was transferred to [facility]. In [facility], an EKG was done, which was showing no significant changes. Troponin was done, which was negative. The patient was started on nitroglycerin drip. She also had a CT angiogram of the chest, which was negative for pulmonary embolism, but it was positive for a pulmonary nodule and the patient was transferred to [facility] for further evaluation. The patient reports that she still does have 6/10 substernal chest pain but with no shortness of breath at this time. She still feels the pain in her neck. 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 She reports that she is compliant with her medication, but she does not recall exactly what medication she takes. PAST MEDICAL HISTORY: Include hypertension, dyslipidemia, hypothyroidism. SOCIAL HISTORY: She reports no history of tobacco use. No use of alcohol. MEDICATIONS: At home from the list from [facility] include Singulair 10 mg per oral daily, simvastatin 20 mg per oral at night, Zoloft 100 mg per oral daily, alendronate 70 mg per oral daily, Synthroid 50 mcg daily. FAMILY HISTORY: She reports her father of heart attack when he was 81. ALLERGIES: She is allergic to codeine. REVIEW OF SYSTEMS: Review of systems of all points is done, pertinent positives and negatives as per HPI. PHYSICAL EXAMINATION: VITAL SIGNS: Blood pressure is 110/76, heart rate of 69, respiratory rate of 14. She is saturating 100% on 2 L nasal cannula, temperature 98.7. GENERAL: She is an elderly white female, nontoxic, lying in bed. HEENT: Pupils equal, round, and reactive to light. Extraocular muscles intact. Mucous membranes moist. NECK: Supple. No JVD. No LAD. HEART: Normal S1, S2. Regular rate and rhythm. No murmurs. CHEST: There is chest wall tenderness upon palpation of the anterior chest, mainly at the costochondral joints. LUNGS: Clear to auscultation bilaterally. No wheezes, rhonchi, or crackles. ABDOMEN: Soft, nontender, nondistended. Positive bowel sounds. NEUROLOGICAL: Speech is clear and coherent. Muscle strength is 5/5 in both upper and lower limbs. SKIN: Warm/dry. PSYCH: Alert and oriented x3. LABORATORY DATA: From [facility] showing hemoglobin of 13, platelets 182, white blood cell count 6.8, sodium 139, potassium 3.3, chloride 105, glucose 112, creatinine 1.01. EKG done in our facility as a stat showing sinus rhythm with a heart rate of 69 with a QTc of 456. Otherwise, no acute ST-T wave changes. ASSESSMENT AND PLAN: 1. Unstable angina. The patient is on nitroglycerin drip. Cardiology are consulted. We will get a stat troponin on her. The patient will likely need a Lexiscan stress test. Her symptoms might be related to costochondritis given the tenderness on the examination. Further management as per Cardiology. 2. Dyslipidemia, continue with simvastatin. 3. Hypothyroidism, continue with Synthroid. 4. Asthma, continue with Singulair. 5. Incidental finding of a pulmonary nodule of 8 mm in the lingular area. The patient will need another CT scan in 6 months. This needs to be arranged with her primary care doctor. Electronically Signed by: Nitin Gonzalez MD 03/05/2019 03:33 P Nitin Gonzalez MD Date Dict: 03/05/2019/10:19 A/Nitin Gonzalez MD Date Trans: 03/05/2019 10:44 A/drew DN_[id number] Normal [facility] MAGNESIUM BLOODon 03-05-2019 Magnesium [Mass/Vol] 2.2 mg/dL Normal 1.9-2.7 [facility] Comment on above: Order Comment: No: D o not add to previous draw Performed By: #### 3 5200, 83775, 86503, 30239 #### [facility] [address] [place] [address], [facility] TROPONIN-Ion 03-05-2019 Troponin I.cardiac [Mass/Vol] 0.01 ng/mL Normal 0.00-0.04 [facility] Comment on above: Order Comment: No: D o not add to previous draw Result Comment: REFE RENCE RANGES: 0.00 - 0.04 ng/ml NORMAL 0.05 - 0.50 ng/ml INDETERMINATE > 0.50 ng/ml CONSISTENT WITH AN M.I. Performed By: #### 3 5200 #### [facility] [address] [place] [address], [facility] Troponin I.cardiac [Mass/Vol] 0.00 ng/mL Normal 0.00-0.[address] [facility] Comment on above: Order Comment: No: D o not add to previous draw Result Comment: REFE RENCE RANGES: 0.00 - 0.14 ng/ml NEGATIVE 0.15 - 0.25 ng/ml INDETERMINATE > 0.25 ng/ml INDICATIVE OF AN M.I. Performed By: #### 3 5200 #### [facility] [address] Troponin I.cardiac [Mass/Vol] 0.00 ng/mL Normal 0.00-0.04 [facility] Comment on above: Order Comment: No: D o not add to previous draw Result Comment: REFE RENCE RANGES: 0.00 - 0.14 ng/ml NEGATIVE 0.15 - 0.25 ng/ml INDETERMINATE > 0.25 ng/ml INDICATIVE OF AN M.I. Performed By: #### 3 5200, 44441, 48279, 14310 #### [facility] [address] TSH3 WITH REFLEXon 0 TSH 3RD GENERATION 2.38 uIU/mL Normal 0.34-5.[address] [facility] Comment on above: Performed By: #### 3 5200, 69025, 86373, 75378 #### [facility] [address] Intraoperative Noteon 2017 Intraoperative Note [id number]#[facility].00[facility] [id number]#1.00[facility] History and Physicalon 02-22 History and Physical [id number]#[address] [place] [address] Provider Orderson 02-22-2017 Provider Orders [id number]#[address] [place] [address] Coding Summaryon 01-18-2017 Coding Summary CODING DATE: 017 [facility] STATUS: Home PAYOR: Medicare APC DESCRIPTION 5431 Level 1 Nerve Procedures ADMIT DX: REASON FOR VISIT DX: G56.02 Carpal tunnel syndrome, left upper limb FINAL DX: PRINCIPAL: G56.02 Carpal tunnel syndrome, left upper limb SECONDARY: E78.5 Hyperlipidemia, unspecified I10 Essential (primary) hypertension E03.9 Hypothyroidism, unspecified Z72.0 Tobacco use PYMT PROC APC STAT DESCRIPTION DOCTOR NAME DATE 34208 543 J1 Neuroplasty and/or Conrado Mccoy And 01/16/2017 transposition; median nerve at carpal tunnel LT Left side (used to identify procedures performed on the left side of the body) NOTE: The code number assigned matches the documented diagnosis and / or procedure in the patient's chart. However, the narrative phrase printed from the coding software may appear abbreviated, or result in slightly different terminology. Coded By: Rossana Swan Date Saved: 01/18/2017 07:38 am [facility] Consent Formson 01-17-2017 Consent Forms [id number]#1.00OTGTIFF [facility] Anesthesia Noteon 01-16-2017 [facility] Patient: Kolby HERNANDES : 61 years Sex: FEMALE : [birth year]Associated Diagnoses: NoneAuthor: Rakan Hernandez MDPostoperative InformationAnesthetic utilized: Monitored anesthesia care.AssessmentAnesthetic outcomeNo anesthetic complications noted.PlanTransfer/ Discharge: Patient can be discharged from PACU when criteria met.Condition good.[Electronically Signed on: 01/16/2017 14:17 EST] Rakan Hernandez MD[Verified on: 01/16/2017 14:17 EST] Rakan Hernandez MD [facility] Anesthesia Note Patient: Kolby HERNANDES : 61 years Sex: FEMALE : [birth year]Associated Diagnoses: NoneAuthor: Rakan Hernandez MDPreoperative InformationAnesthesia history: Family history. Patient history: No prior anesthesia problems.Review of SystemsConstitutional: Negative.Cardiovascular: No Chest Pain. No SOB.Health StatusAllergies:Allergic Reactions (All)Severity Not DocumentedCodeine- Rash.Percocet 5/325- Rash.Vicodin- Rash.Current medications:Home Medications (6) Activealendronate 70 mg oral tablet 70 mg = 1 tab(s), PO, qWeeklevothyroxine 25 mcg (0.025 mg) oral tablet 25 mcg = 1 tab(s), PO, Dailymontelukast 10 mg oral tablet 10 mg = 1 tab(s), PO, qPMsertraline 100 mg oral tablet 100 mg = 1 tab(s), PO, Dailysimvastatin 20 mg oral tablet 20 mg = 1 tab(s), PO, Once a day (at bedtime)traMADol 50 mg oral tablet 50 mg = 1 tab(s), PRN, PO, g2yaFjttdkk list (past medical history):All ProblemsHypothyroidism / SNOMED CT [id number] / ConfirmedCanceled: No Chronic Problems / Cerner NKPHistoriesFamily History:No family history items have been selected or recorded.Procedure history:Carpal tunnel decompression ([id number]) on 12/12/2016 at 61 Years.Cholecystectomy (51970097).Hysterectomy and bilateral salpingo-oophorectomy sample ([id number]).Fracture ([id number]).Comments: 08:10 - Vandana Onofre wristDisc ([id number]).Comments:2016 08:11 - Vandana Onofre elvira and screwsSpur of ankle bone ([id number]).Comments:1 08:12 - Vandana Onofre footRotator cuff repair ([id number]).Comments: 08:12 - Vandana Onofre RNrightSocial History Alcohol Assessment Use: Never. Tobacco Assessment Never (less than 100 in lifetime) Tobacco Use:..Social & Psychosocial LvqwdxBzihxbz80/20/2017 Alcohol Use: ShtpbKzzgcri58/20/2017 Smoking tobacco use: Never (less than 100 in l.Physical ExaminationGeneral: Alert and oriented.Airway: Mallampati classification: II (soft palate, fauces, uvula visible). Temporomandibular joint mobility: Good. Mouth: Dentures ( Upper and lower dentures ).HENT: Normocephalic.Respiratory: Lungs are clear to auscultation.Cardiovascular: Regular rhythm.Neurologic: Alert, Oriented.Review / ManagementLaboratory ResultsPlanAmerican Society of Anesthesiologists#(ASA) physical status classification: Class III.Anesthetic Preoperative PlanAnesthesia: Monitored anesthesia care. Anesthetic plan, risks, benefits, and alternatives discussed with the patient and/or family. Patient verbalized understanding. Informed consent was given.[Electronically Signed on: 01/16/2017 12:52 EST] Rakan Hernandez MD[Verified on: 01/16/2017 12:52 EST] Rakan Hernandez MD Normal [facility] Inpatient Clinical Summaryon 01-16-2017 Inpatient Clinical Summary [facility] SURGERYClinical Discharge SummaryPERSON INFORMATIONName CLAUDETTE HERNANDES Age 61 Years 09/21/Sex FEMALE Language American PCP Provider, UnlistedMarital Status Single [facility] SurgeryN [id number] Acct# Arrival 01/16/17 09:25:18Visit Reason LEFT CARPAL TUNNEL RELEASE Acuity LOS 010 23:07Address:[address] [place] [id number]:PROVIDER INFORMATIONVITALS INFORMATIONVital Sign Triage LatestTemp OralTemp TemporalTemp IntravascularTemp AxillaryTemp Nqrzot04 Sat 96 % 95 %Respiratory Rate 16 br/min 16 br/minPeripheral Pulse Rate 81 bpm 75 bpmApical Heart RateBlood Pressure 119 mmHg / 79 mmHg 138 mmHg / 89 mmHgComment:MEDICAL INFORMATIONAllergy Info:Percocet 5/325; Vicodin; codeinePrescriptions Given:Prescription DisplaytraMADol (traMADol 50 mg oral tablet) 1 tab(s) ( 50 mg ), PO, q4hr, PRN: for pain, # 12 tab(s), 0 Refill(s), 01/18/17Medication List:Fill New Prescriptions:traMADol (traMADol 50 mg oral tablet) 50 mg Oral Every 4 hours as needed for for painContinue These Medications:alendronate (alendronate 70 mg oral tablet) 70 mg Oral every weeklevothyroxine (levothyroxine 25 mcg (0.025 mg) oral tablet) 25 mcg Oral every daymontelukast (montelukast 10 mg oral tablet) 10 mg Oral once a day (in the evening)sertraline (sertraline 100 mg oral tablet) 100 mg Oral every daysimvastatin (simvastatin 20 mg oral tablet) 20 mg Oral once a day (at bedtime)Comment:Lab and Radiology ResultsLaboratory or Other Results This Visit (last charted value for your 01/16/2017 visit) No Laboratory or Other Results This VisitDIET & ACTIVITYPatient Activity Level:As ToleratedPatient Diet:RegularPatient Activity Restrictions:DISCHARGE INFORMATIONDischarge Disposition:Discharge Location:DEPART REASON INCOMPLETE INFORMATIONPATIENT EDUCATION INFORMATIONInstructions:Juan gonzales- Post Op Carpal T[facility] ([facility])Follow up:With: Address: When:Conrado Mccoy [address] [place] [address] Business (2)Comments:Call for follow up appointmentWith: Address: When:Unlisted ProviderDIAGNOSISCarpal tunnel syndrome on leftComment:PHYS DOC NOTES Normal [facility] Inpatient Patient Summaryon 01-16-2017 Inpatient Patient Summary [address] [id number] patient Discharge InstructionsName: CLAUDETTE HERNANDES ADOB: [birth year] Address: [address] [place] [address] [address] [facility] [address]Ejkoqwl Care Provider:Name: Provider, UnlistedPhone:After you are discharged if you find you have any questions, please, call [phone] to speak to a nurse.Discharge Diagnosis: Carpal tunnel syndrome on leftIf you received any narcotics, sedation, or any other medication that causes drowsiness for the next 24 hours, unless otherwise directed:? Do not drive a car.? Do not operate machinery such as power tools, lawn mowers, drills, sewing machines, or stoves? Avoid alcoholic beverages and drugs for allergies, nerves, or sleep? Do not make important personal or business decisions or sign any legal documentsLake County [facility] would like to thank you for allowing us to assist you with your healthcare needs. The following includes patient education materials and information regarding your injury/illness.CLAUDETTE HERNANDES has been given the following list of follow-up instructions, prescriptions, and patient education materials:Follow-up InstructionsWith: Address: When:Conrado Mccoy [address] [place] [address], [address] [place], [phone] Business (2)Comments:Call for follow up appointmentWith: Address: When:Unlisted ProviderMedicationsDuring the course of your visit, your medication list was updated with the most current information. The details of those changes are reflected below:New MedicationsPrinted PrescriptionstraMADol (traMADol 50 mg oral tablet) 1 tab(s) Oral Every 4 hours as needed for pain. Refills: 0.Medications to Continue That Have Not ChangedOther Medicationsalendronate (alendronate 70 mg oral tablet) 1 tab(s) Oral every week.levothyroxine (levothyroxine 25 mcg (0.025 mg) oral tablet) 1 tab(s) Oral every day.montelukast (montelukast 10 mg oral tablet) 1 tab(s) Oral once a day (in the evening).sertraline (sertraline 100 mg oral tablet) 1 tab(s) Oral every day.simvastatin (simvastatin 20 mg oral tablet) 1 tab(s) Oral once a day (at bedtime).It is important to always keep an active list of medications available so that you can share with other providers and manage your medications appropriately. As an additional courtesy, we are also providing you with your final active medications list that you can keep with you.alendronate (alendronate 70 mg oral tablet) 1 tab(s) Oral every week.levothyroxine (levothyroxine 25 mcg (0.025 mg) oral tablet) 1 tab(s) Oral every day.montelukast (montelukast 10 mg oral tablet) 1 tab(s) Oral once a day (in the evening).sertraline (sertraline 100 mg oral tablet) 1 tab(s) Oral every day.simvastatin (simvastatin 20 mg oral tablet) 1 tab(s) Oral once a day (at bedtime).traMADol (traMADol 50 mg oral tablet) 1 tab(s) Oral Every 4 hours as needed for pain. Refills: 0.Take only the medications listed above. Contact your doctor prior to taking any medications not on this list.Diet & ActivityPatient Activity Level: As ToleratedPatient Diet: RegularPatient Activity Restrictions:Comment:Patient education materials, if any, will display belowDR. TOLENTINO POST OPERATIVE CARPEL TUNNEL INSTRUCTIONSSURGEONS WRITTEN INSTRUTCTIONS:-Keep your hand elevated above your elbow for the first 24 hours after surgery-Wiggle your fingers frequently while awake-DO NOT lift heavy objects or inside sales administrator forcefully with your hand-Change your dressing in 1 day and apply an regis bandage as directed with the thumb tucked towards the palm of your hand. This keeps the tension off your incision-You may shower in 1 day but do not submerge your hand under water. Put a 4x4 gauze and the regis bandage back on after you shower-If you have any problems or concerns, please call the office at [phone]-Follow up as scheduledViruses or BacteriaWhat?s got you sick?Antibiotics only treat bacterial infections. Viral illnesses cannot be treated with antibiotics. When an antibiotic is not prescribed, ask your healthcare professional for tips on how to relieve symptoms and feel better. Usual CauseIllness Viruses Bacteria Antibiotic NeededCold/Runny Nose NOBronchitis/Chest Cold (in otherwise healthy children and adults) NOWhooping Cough YesFlu NOStrep Throat YesSore Throat (except strep) NOFluid in the middle ear (otitis media with effusion) NOUrinary Tract Infection YesAntibiotics Aren?t Always the Answerwww.cdc.gov/getsmart GETSMARTKnow When Antibiotics Beti.S. Department of Health and Human ServicesSamaritan North Health Centerers for Disease Control and Prevention October 2013 [facility] MAGR Intraoperative Recordon 01-16-2017 MAGR Intraoperative Record MAGR Intra-Op Record Summary Primary Physician: Conrado Mccoy DO Finalized Date/Time: 01/16/17 15:01:02 Pt. Name: ARPITRODCLAUDETTE/Sex: 1955 FEMALE Med Rec #: [id number] Physician: Conrado Mccoy DO Financial #: [id number] Pt. Type: D Room/Bed: / Admit/Disch: 01/16/17 09:25:18 - Institution: Case Times MAGR Entry 1 Patient In Room Time 01/16/17 13:11:00 Out Room Time 01/16/17 13:44:00 Anesthesia Start Time 01/16/17 13:11:00 Stop Time 01/16/17 13:44:00 Surgery Start Time 01/16/17 13:20:00 Stop Time 01/16/17 13:38:00 Last Modified By: Caroline Montgomery RN 01/16/17 14:17:41 Case Attendance MAGR Entry 1 Entry 2 Entry 3 Case Attendee Conrado Mccoy William MD Sauer, Stephanie RN Andrew DO Role Performed Surgeon - Primary Anesthesiologist of Technical Assoc Record Time In 01/16/17 13:11:00 01/16/17 13:11:00 01/16/17 13:11:00 Time Out 01/16/17 13:44:00 01/16/17 13:44:00 01/16/17 13:44:00 Procedure Carpal Tunnel Carpal Tunnel Carpal Tunnel Release(Left) Release(Left) Release(Left) Last Modified By: Caroline Montgomery RN, Stephanie RN Sauer, Stephanie RN 01/16/17 14:29:30 01/16/17 14:29:30 01/16/17 14:29:30 Entry 4 Entry 5 Case Attendee Paul Alas Linda M Regina CST Role Performed Scrub Personnel In Classroom Tutor Time In 01/16/17 13:11:00 01/16/17 13:11:00 Time Out 01/16/17 13:44:00 01/16/17 13:44:00 Procedure Carpal Tunnel Carpal Tunnel Release(Left) Release(Left) Last Modified By: Caroline Montgomery RN, Stephanie RN 01/16/17 14:29:30 01/16/17 14:29:30 Surgical Procedures MAGR Pre-Care Text: A.20 Verifies operative procedure, surgical site, and laterality Im.150 Develops individualized plan of care Entry 1 Procedure Carpal Tunnel Release Primary Procedure Yes Primary Surgeon Conrado Mccoy Modifiers Left Henri DO Surgeon Comment LEFT CARPAL TUNNEL Start 01/16/17 13:20:00 RELEASE Stop 01/16/17 13:38:00 Anesthesia Type MAC Surgical Service Orthopedics Wound Class Clean Last Modified By: Caroline Montgomery RN 01/16/17 14:19:08 Post-Care Text: O.730 The patient's care is consistent with the individualized perioperative plan of care General Case Data MAGR Pre-Care Text: A.350.1 Classifies surgical wound Entry 1 Case Information OR MAGR OR 01 Case Level Level 3 Wound Class Clean Specialty Orthopedics ASA Class 3 Diagnosis Preop Diagnosis LEFT CAPRAL TUNNEL Postop Same As Preop Yes SYNDROME Postop Diagnosis LEFT CAPRAL TUNNEL SYNDROME Last Modified By: Caroline Montgomery RN 01/16/17 14:19:15 Post-Care Text: O.760 Patient receives consistent and comparable care regardless of the setting Time Out MAGR Entry 1 Time out date/time 01/16/17 13:20:00 All team members Yes have introduced themselves by name and role Surgeon, Yes Surgeon reviews Yes anesthesia, nurse critical or confirm patient, unexpected steps, site, procedure operative duration, anticipated blood loss Anesthesia team Yes Nursing team Yes reviews any reviews sterility patient-specific (including concerns indicator results) and equipment issues/concerns Antibiotic Yes Is essential N/A prophylaxis given imaging displayed? within the last 60 minutes Last Modified By: Caroline Montgomery RN 01/16/17 14:19:37 Patient Positioning MAGR Pre-Care Text: A.280 Identifies baseline musculoskeletal status Im.40 Positions the patient Im.80 Applies safety devices Entry 1 Procedure Carpal Tunnel Body Position Supine Release(Left) Left Arm Position Extended on Hand Table Right Arm Position Extended on padded arm board Left Leg Position Extended Right Leg Position Extended Feet Uncrossed? Yes Press Points Checked Yes Positioning Device Arm Boards, Arm Strap, Outcome Met (O.80) Yes Pillow, Safety Strap Last Modified By: Caroline Montgomery RN 01/16/17 14:19:50 Post-Care Text: E.290 Evaluates musculoskeletal status O.80 Patient is free from signs and symptoms of injury related to positioning Skin Prep MAGR Pre-Care Text: A.30 Verifies allergies Im.270 Performs skin preparation Im.270.1 Implements protective measures to prevent skin and tissue injury due to chemical sources Entry 1 Skin Prep Syntegrity Prep Agents (Im.270) Povidone-Iodine Prep By Caroline Montgomery RN Prep Area (Im.270) Elbow and forearm, Hand Prep Area Details Left Skin Prep Agent Dry Yes Without Pooling Hair Removal Syntegrity Hair Removal Methods No hair removal performed Outcome Met (O.100) Yes Last Modified By: Caroline Montgomery RN 01/16/17 14:20:21 Post-Care Text: E.10 Evaluates for signs and symptoms of physical injury to skin and tissue O.100 Patient is free from signs and symptoms of chemical injury Counts Verification MAGR Pre-Care Text: A.20 Verifies operative procedure, surgical site, and laterality A.20.2 Assesses the risk for unintended retained foreign body Im.20 Performs required counts Entry 1 Procedure Carpal Tunnel Release(Left) Counts Verification Initial Counts Items included in Sponges, Sharps Initial Counts Caroline Montgomery RN, the Initial Count Performed By Terri Alas SERVICE ATTENDANT Initial Count Time 01/16/17 13:10:00 Counts Verification Final Counts Items Included in Sponges, Sharps Final Count Status Correct Final Count Final Counts Caroline Montgomery RN, Final Count Time 01/16/17 13:35:00 Performed By Terri Alas CST Surgeon notified of Yes final counts status Outcome Met (O.20) Yes Last Modified By: Caroline Montgomery RN 01/16/17 14:25:40 Post-Care Text: E.50 Evaluates results of the surgical count O.20 Patient is free from unintended retained foreign objects Tourniquet MAGR Pre-Care Text: A.240 Assesses baseline skin condition Im.120 Implements protective measures to prevent skin or tissue injury due to mechanical sources Entry 1 Tourniquet Type TOURNIQUET Cuff Size 45.7 cm Serial Number [id number] Setting 250 mmHg Placement Arm upper Padding (Im.120) Yes Placement Details Left Tourniquet Times Inflated 01/16/17 13:20:00 Deflated 01/16/17 13:38:00 Total Time 18 Applied By Conrado Mccoy Removed By Caroline Montgomery RN DO Outcome Met (O.60) Yes Last Modified By: Caroline Montgomery RN 01/16/17 14:27:39 Post-Care Text: E.10 Evaluates for signs and symptoms of physical injury to skin and tissue O.60 Patient is free from sign and symptoms of injury caused by extraneous objects Cautery MAGR Pre-Care Text: A.240 Assesses baseline skin condition A.40 Verifies presence of prosthetics or corrective devices Im.50 Implements protective measures to prevent injury due to electrical sources Entry 1 ESU Type Electrosurgical Unit Identification 5952 Number ESU Settings Syntegrity Cut Setting 30 Coag Setting 30 Bipolar Setting 10 Grounding Pad Details Grounding Pad Yes Verified By Caroline Montgomery RN Needed? Grounding Pad Site Table Grounding Pad Within Expiration Yes Date? Outcome Met (O.10) Yes Last Modified By: Caroline Montgomery RN 01/16/17 14:28:02 Post-Care Text: E.10 Evaluates for signs and symptoms of physical injury to skin and tissue O.10 Patient is free from signs and symptoms of injury related to thermal sources Medication Administration MAGR Pre-Care Text: A.210 Identifies physiological status Im.220 Administers prescribed medications Entry 1 Entry 2 Time Administered 01/16/17 13:22:00 01/16/17 13:39:00 Medication LIDOCAINE 1 % NEOSPORIN Route of Admin SubQ TOP Dose Volume 4 mL By Conrado Mccoy Linda M Andrew DO Outcome Met (O.130) Yes Yes Last Modified By: Caroline Montgomery RN, Stephanie RN 01/16/17 14:28:24 01/16/17 15:00:54 Post-Care Text: E.20 Evaluates response to medications O.130 Patient receives appropriately administered medication(s) Dressing/Packing MAGR Pre-Care Text: A.350 Assesses susceptibility for infection Im.290 Administer care to wound sites Entry 1 Skin Prep Agent Yes Site Hand Removed Prior to Dressing? Site Details Left Dressing Item Details Dressing Item 4x4's, Non-adhesive Tape (Im.290) Elastic Sports Bandage (Im.290) dressing Outcome Met Yes Last Modified By: Caroline Montgomery RN 01/16/17 14:28:58 Post-Care Text: E.200 Evaluates progress of wound healing O.200 Patient's wound perfusion is consistent with or improved from baseline levels Unfinalized History Date/Time Username Reason for Unfinalizing Freetext Reason for Unfinalizing 01/16/17 15:00 [facility] Finish [facility]ation [facility] [place] [facility] [place] II Record Summary Primary Physician: Conrado Mccoy DO Finalized Date/Time: 01/16/17 15:27:42 Pt. Name: CLAUDETTE HERNANDES./Sex: 1955 FEMALE Med Rec #: [id number] Physician: Conrado Mccoy DO Financial #: [id number] Pt. Type: D Room/Bed: / Admit/Disch: 01/16/17 09:25:18 - Institution: Phase II Case Times MAGR Pre-Care Text: Patient is free from s/s of injury. Patient remains free from compromised physical state related to surgery or anesthesia. Patient comfort maintained. Patient/family verbalize understanding of discharge instructions. Entry 1 In PACU II 01/16/17 13:44:00 Discharge from PACU 01/16/17 15:27:00 II Last Modified By: Susu Stern RN 01/16/17 15:27:40 Post-Care Text: The patient remains free from s/s of injury. Patient's vital signs stable, circulation maintained, return to preop mental and physical status, opsite/dressing intact, minimal or absent nausea and vomiting, tolerates po intake. Patient verbalizes adequate pain control. Patient/family express understanding of discharge instructions. General Comments: Arrives per cart from OR accompanied by Orlando Hendrickson RN and Alla Lawrence RN report received 1527 - discharged per wheelchair to private auto driven by daughter for home Finalized By: Susu Stern RN Document Signatures Signed By: Susu Stern RN 01/16/17 15:27 [facility] MAGR Preoperative Recordon 1 03-18-2016 MAGR Preoperative Record MAGR Pre-Op Record Summary Primary Physician: Conrado Mccoy DO Finalized Date/Time: 01/16/17 13:05:28 Pt. Name: CLAUDETTE HERNANDES /Sex: 1955 FEMALE Med Rec #: [id number] Physician: Conrado Mccoy DO Financial #: [id number] Pt. Type: D Room/Bed: / Admit/Disch: 01/16/17 09:25:18 - Institution: Pre-Op Case Times MAGR Pre-Care Text: Patient will be optimally prepared for surgery. Patient is free from s/s of injury. Provide information to patient/family related to plan of care. Verify patient allergies. Confirm identity and verify consent before the operative or invasive procedure. Entry 1 Patient Arrival Time 01/16/17 10:05:00 Preop Departure 01/16/17 13:05:00 Last Modified By: Susu Stern RN 01/16/17 13:05:26 Post-Care Text: Patient is prepared mentally and physically and is ready for surgery. The patient remains free from s/s of injury. Patient/family express understanding of plan of care and participate in decisions affecting his or her perioperrative plan of care. Allergies documented appropriately. Patient identifiers and consent correct. General Comments: Patient arrives ambulatory to room 204. Oriented to room/facility. No complaints of any chest pain, shortness of breath or illnessess. Denies pacemaker/defib. Denies sleep apnea. Finalized By: Susu Stern RN Document Signatures Signed By: Susu Stern RN 01/16/17 13:05 [facility] Operative Report - Surgeon/P corey 01-16-2017 Operative Report - Surgeon/Physician Procedure: Decompression of median nerve left wrist with release of carpal canalPre Op Diagnosis: Carpal tunnel syndrome leftPost Op Dianosis: Carpal tunnel syndrome leftSurgeon: Dr. Gabi Mccoy, DOAnesthesia: Conscious sedation with localIndication for Surgery: The patient had symptoms of carpal tunnel syndrome. There was evidence of progression. We discussed surgical and nonsurgical alternatives and the risks and benefits of each and the chances for success / failure. I recommended to proceed with surgery and the patient requested the same.Findings: The median nerve was noted to be present and intact within the carpal canal. The carpal canal/tunnel was stenoticBlood Loss: ScantSpecimen: NoneProcedure Summary: After administration of anesthesia the left upper extremity was sterilely prepped and draped in usual fashion. A timeout was taken in the operating room. The arm was exsanguinated and the tourniquet was inflated to 250 mmHg. A longitudinal incision was made over the carpal tunnel dissection was carried down beyond the palmaris longus and down to the transverse carpal ligament. Transverse carpal ligament was incised with a 15 blade and then released proximally and distally with a pair of Benjamin scissors. I made sure that the nerve was completely decompressed as it exited the distal volar forearm fascia and traveled through the carpal tunnel and into the hand. The wound was irrigated with copious amounts sterile saline and the skin was closed with nylon suture. Tourniquet was deflated. Adaptic sterile dressings and an Regis bandage were applied with the thumb in appositionComplications: None[Electronically Signed on: 01/16/2017 13:32 EST] Conrado Mccoy DO[Verified on: 01/16/2017 13:32 EST] Conrado Mccoy DO [facility] MAGR Intraoperative Recordon 01-10-2017 MAGR Intraoperative Record MAGR Intra-Op Record Summary Primary Physician: Conrado Mccoy DO Finalized Date/Time: 01/10/17 10:13:17 Pt. Name: CLAUDETTE HERNANDES D.O.B./Sex: 1955 FEMALE Med Rec #: [id number] Physician: Conrado Mccoy DO Financial #: [id number] Pt. Type: D Room/Bed: / Admit/Disch: 12/12/16 12:05:33 - 12/12/16 18:19:00 Institution: Case Times MAGR Entry 1 Patient In Room Time 12/12/16 16:52:00 Out Room Time 12/12/16 17:25:00 Anesthesia Start Time 12/12/16 16:52:00 Stop Time 12/12/16 17:28:00 Surgery Start Time 12/12/16 17:10:00 Stop Time 12/12/16 17:23:00 Last Modified By: Bina Limon RN 12/12/16 17:28:36 Case Attendance MAGR Entry 1 Entry 2 Entry 3 Case Attendee Conrado Mccoy Robert M MD Long, Barbara RN Andrew DO Role Performed Surgeon - Primary Anesthesiologist of [employer] Record Time In 12/12/16 16:52:00 12/12/16 16:52:00 12/12/16 16:52:00 Time Out 12/12/16 17:25:00 12/12/16 17:25:00 12/12/16 17:25:00 Procedure Carpal Tunnel Carpal Tunnel Carpal Tunnel Release(Right) Release(Right) Release(Right) Last Modified By: Bina Limon RN, Barbara RN Long, Barbara RN 12/12/16 17:25:48 12/12/16 17:25:48 12/12/16 17:25:48 Entry 4 Entry 5 Case Attendee Chelsie Marcum CST, Leigh-Ann CST Role Performed Scrub Personnel In Classroom Tutor Time In 12/12/16 16:52:00 12/12/16 16:52:00 Time Out 12/12/16 17:25:00 12/12/16 17:25:00 Procedure Carpal Tunnel Carpal Tunnel Release(Right) Release(Right) Last Modified By: Bina Limon RN, Barbara RN 12/12/16 17:25:48 12/12/16 17:25:48 Surgical Procedures MAGR Pre-Care Text: A.20 Verifies operative procedure, surgical site, and laterality Im.150 Develops individualized plan of care Entry 1 Procedure Carpal Tunnel Release Primary Procedure Yes Primary Surgeon Conrado Mccoy Modifiers Right Henri DO Surgeon Comment RELEASE RIGHT CARPAL Start 12/12/16 17:10:00 TUNNEL Stop 12/12/16 17:23:00 Anesthesia Type [facility] Surgical Service Orthopedics Wound Class Clean Last Modified By: Bina Limon RN 12/12/16 17:25:52 Post-Care Text: O.730 The patient's care is consistent with the individualized perioperative plan of care General Case Data MAGR Pre-Care Text: A.350.1 Classifies surgical wound Entry 1 Case Information OR MAGR OR 02 Case Level Level 3 Wound Class Clean Specialty Orthopedics ASA Class 2 Diagnosis Preop Diagnosis RIGHT CARPAL TUNNEL Postop Same As Preop Yes SYNDROME Postop Diagnosis RIGHT CARPAL TUNNEL SYNDROME Last Modified By: Bina Limon RN 12/12/16 17:12:12 Post-Care Text: O.760 Patient receives consistent and comparable care regardless of the setting Time Out MAGR Entry 1 Time out date/time 12/12/16 17:09:00 All team members Yes have introduced themselves by name and role Surgeon, Yes Surgeon reviews Yes anesthesia, nurse critical or confirm patient, unexpected steps, site, procedure operative duration, anticipated blood loss Anesthesia team Yes Nursing team Yes reviews any reviews sterility patient-specific (including concerns indicator results) and equipment issues/concerns Antibiotic Yes Is essential N/A prophylaxis given imaging displayed? within the last 60 minutes Last Modified By: Bina Limon RN 12/12/16 17:12:28 Patient Positioning MAGR Pre-Care Text: A.280 Identifies baseline musculoskeletal status Im.40 Positions the patient Im.80 Applies safety devices Entry 1 Procedure Carpal Tunnel Body Position Supine Release(Right) Left Arm Position Extended on padded arm Right Arm Position Extended on padded arm board board Left Leg Position Extended Right Leg Position Extended Feet Uncrossed? Yes Press Points Checked Yes Positioning Device Arm Boards, Arm Strap, Outcome Met (O.80) Yes Pillow, Safety Strap Last Modified By: Bina Limon RN 12/12/16 17:13:14 Post-Care Text: E.290 Evaluates musculoskeletal status O.80 Patient is free from signs and symptoms of injury related to positioning Skin Prep MAGR Pre-Care Text: A.30 Verifies allergies Im.270 Performs skin preparation Im.270.1 Implements protective measures to prevent skin and tissue injury due to chemical sources Entry 1 Skin Prep Syntegrity Prep Agents (Im.270) Povidone-Iodine Prep By Bina Limon RN Prep Area (Im.270) Elbow and forearm, Hand Skin Prep Agent Dry Yes Without Pooling Hair Removal Syntegrity Hair Removal Methods No hair removal performed Outcome Met (O.100) Yes Last Modified By: Bina Limon RN 12/12/16 17:13:45 Post-Care Text: E.10 Evaluates for signs and symptoms of physical injury to skin and tissue O.100 Patient is free from signs and symptoms of chemical injury Counts Verification MAGR Pre-Care Text: A.20 Verifies operative procedure, surgical site, and laterality A.20.2 Assesses the risk for unintended retained foreign body Im.20 Performs required counts Entry 1 Procedure Carpal Tunnel Release(Right) Counts Verification Initial Counts Items included in Sponges, Sharps Initial Counts Bina Limon RN, Bear, the Initial Count Performed By Chelsie [facility] Initial Count Time 12/12/16 17:00:00 Counts Verification Final Counts Items Included in Sponges, Sharps Final Count Method Manual Final Count Final Count Status Correct Final Counts Bina Limon RN, Bear, Performed By Employee Benefit Plans SERVICE ATTENDANT Final Count Time 12/12/16 17:14:00 Surgeon notified of Yes final counts status Outcome Met (O.20) Yes Last Modified By: Bina Limon RN 12/12/16 17:14:11 Post-Care Text: E.50 Evaluates results of the surgical count O.20 Patient is free from unintended retained foreign objects Tourniquet MAGR Pre-Care Text: A.240 Assesses baseline skin condition Im.120 Implements protective measures to prevent skin or tissue injury due to mechanical sources Entry 1 Tourniquet Type TOURNQUET/AC OR2 (3603) Cuff Size 9 cm Setting 250 mmHg Placement Arm upper Padding (Im.120) Yes Placement Details Right Tourniquet Times Inflated 12/12/16 17:10:00 Deflated 12/12/16 17:22:00 Applied By Conrado Mccoy Outcome Met (O.60) Yes Henri ROJAS Last Modified By: Bina Limon RN 12/12/16 17:22:56 Post-Care Text: E.10 Evaluates for signs and symptoms of physical injury to skin and tissue O.60 Patient is free from sign and symptoms of injury caused by extraneous objects Cautery MAGR Pre-Care Text: A.240 Assesses baseline skin condition A.40 Verifies presence of prosthetics or corrective devices Im.50 Implements protective measures to prevent injury due to electrical sources Entry 1 ESU Type Electrosurgical Unit Identification 5952 Number ESU Settings Syntegrity Cut Setting 30 Coag Setting 30 Bipolar Setting 10 Grounding Pad Details Grounding Pad Yes Grounding Pad Site Table Grounding Pad Needed? Outcome Met (O.10) Yes Last Modified By: Bina Limon RN 12/12/16 17:15:54 Post-Care Text: E.10 Evaluates for signs and symptoms of physical injury to skin and tissue O.10 Patient is free from signs and symptoms of injury related to thermal sources Medication Administration MAGR Pre-Care Text: A.210 Identifies physiological status Im.220 Administers prescribed medications Entry 1 Entry 2 Time Administered 12/12/16 17:10:00 12/12/16 17:20:00 Medication marcaine 0.5% bacitracin/neomycin, poly b oint Route of Admin SubQ TOP Dose 4.5 mL Volume 30 mL By Conrado Mccoy James Andrew DO Andrew DO Outcome Met (O.130) Yes Yes Last Modified By: Bina Limon RN, Barbara RN 12/12/16 17:16:20 01/10/17 10:13:12 Post-Care Text: E.20 Evaluates response to medications O.130 Patient receives appropriately administered medication(s) Dressing/Packing MAGR Pre-Care Text: A.350 Assesses susceptibility for infection Im.290 Administer care to wound sites Entry 1 Skin Prep Agent Yes Site Hand Removed Prior to Dressing? Site Details Right Dressing Item Details Dressing Item 4x4's, Roller Gauze (Im.290) Outcome Met Yes Last Modified By: Bina Limon RN 12/12/16 17:16:56 Post-Care Text: E.200 Evaluates progress of wound healing O.200 Patient's wound perfusion is consistent with or improved from baseline levels Unfinalized History Date/Time Username Reason for Unfinalizing Freetext Reason for Unfinalizing 01/10/17 07:32 MHBLONG Modify Pick List 01/10/17 10:12 MHBLONG [facility] MAGR Preoperative Record MAGR Pre-Op Record Summary Primary Physician: Conrado Mccoy DO Finalized Date/Time: 12/22/16 13:33:53 Pt. Name: CLAUDETTE HERNANDES /Sex: 1955 FEMALE Med Rec #: [id number] Physician: Conrado Mccoy DO Financial #: [id number] Pt. Type: D Room/Bed: / Admit/Disch: 12/12/16 12:05:33 - 12/12/16 18:19:00 Institution: Pre-Op Case Times MAGR Pre-Care Text: Patient will be optimally prepared for surgery. Patient is free from s/s of injury. Provide information to patient/family related to plan of care. Verify patient allergies. Confirm identity and verify consent before the operative or invasive procedure. Entry 1 Patient Arrival Time 12/12/16 13:54:00 Preop Departure 12/12/16 16:45:00 Last Modified By: Susu Stern RN 12/22/16 13:33:51 Post-Care Text: Patient is prepared mentally and physically and is ready for surgery. The patient remains free from s/s of injury. Patient/family express understanding of plan of care and participate in decisions affecting his or her perioperrative plan of care. Allergies documented appropriately. Patient identifiers and consent correct. General Comments: arrives ambulatory to w, denies recent cp, sob, new illnesses, pacemaker, defibrillator or sleep apnea Finalized By: Susu Stern RN Document Signatures Signed By: Susu Stern RN 12/22/16 13:33 [facility] Coding Summaryon 12-15-2016 Coding Summary CODING DATE: 017 [facility] STATUS: Home PAYOR: Medicare APC DESCRIPTION 5733 Level 3 Minor Procedures ADMIT DX: REASON FOR VISIT DX: Z01.810 Encounter for preprocedural cardiovascular examination FINAL DX: PRINCIPAL: Z01.810 Encounter for preprocedural cardiovascular examination SECONDARY: PYMT PROC APC STAT DESCRIPTION DOCTOR NAME DATE NOTE: The code number assigned matches the documented diagnosis and / or procedure in the patient's chart. However, the narrative phrase printed from the coding software may appear abbreviated, or result in slightly different terminology. Coded By: Linda Jenkins Date Saved: 12/15/2016 04:40 pm [facility] Coding Summary CODING DATE: 017 [facility] STATUS: Home PAYOR: Medicare APC DESCRIPTION 5431 Level 1 Nerve Procedures ADMIT DX: REASON FOR VISIT DX: G56.01 Carpal tunnel syndrome, right upper limb FINAL DX: PRINCIPAL: G56.01 Carpal tunnel syndrome, right upper limb SECONDARY: PYMT PROC APC STAT DESCRIPTION DOCTOR NAME DATE 85271 [id number] J1 Neuroplasty and/or Conrado Mccoy And 12/12/2016 transposition; median nerve at carpal tunnel RT Right side (used to identify procedures performed on the right side of the body) NOTE: The code number assigned matches the documented diagnosis and / or procedure in the patient's chart. However, the narrative phrase printed from the coding software may appear abbreviated, or result in slightly different terminology. Coded By: Rachel Zafar Date Saved: 12/15/2016 01:30 pm [facility] Consent Formson 12-13-2016 Consent Forms [id number][facility] and Physicalon 12-13 History and Physical [id number]#1.00[facility] Provider Orderson 12-13-2016 Provider Orders [id number]#1.00[facility] Anesthesia Noteon 12-12-2016 Anesthesia Note Patient: Kolby HERNANDES : 61 years Sex: FEMALE : [birth year]Associated Diagnoses: NoneAuthor: Theodore Guevara MDPostoperative InformationPost Operative Note: Operative Day.Anesthetic utilized: Monitored anesthesia care.Health StatusAllergies:Allergic Reactions (All)Severity Not DocumentedCodeine- Rash.Percocet 5/325- Rash.Vicodin- Rash.Problem list (past medical history):All ProblemsHypothyroidism / SNOMED CT 00980677 / ConfirmedCanceled: No Chronic Problems / Cerner NKPPhysical ExaminationVS/MeasurementsVi jero Signs (last 24 hrs) Last ChartedHeart Rate Peripheral 80 bpm (DEC 12 12:30)Resp Rate 0 br/min (DEC 12 17:25)SBP 96 mmHg (DEC 12 17:22)DBP 63 mmHg (DEC 12 17:22)SpO2 97 % (DEC 12 17:20)Review / ManagementCondition: Stable.AssessmentAnesthetic outcomeNo anesthetic complications noted.PlanTransfer/ Discharge: Patient can be discharged from PACU when criteria met.Condition good.[Electronically Signed on: 12/12/2016 17:31 EDT] Theodore Guevara MD[Verified on: 12/12/2016 17:31 EDT] Theodore Guevara MD [facility] Anesthesia Note Patient: Kolby HERNANDES : 61 years Sex: FEMALE : [birth year]Associated Diagnoses: NoneAuthor: Theodore Guevara MDPreoperative InformationAnesthesia history: Patient history: No difficult intubation, No malignant hyperthermia. Family history: No malignant hyperthermia.Review of SystemsConstitutional: Negative.Respiratory: Negative, No shortness of breath.Cardiovascular: No chest pain.Neurologic: Alert and oriented X4.Health StatusAllergies:Allergic Reactions (All)Severity Not DocumentedCodeine- Rash.Percocet 5/325- Rash.Vicodin- Rash.Current medications:Home Medications (5) Activealendronate 70 mg oral tablet 70 mg = 1 tab(s), PO, qWeeklevothyroxine 25 mcg (0.025 mg) oral tablet 25 mcg = 1 tab(s), PO, Dailymontelukast 10 mg oral tablet 10 mg = 1 tab(s), PO, qPMsertraline 100 mg oral tablet 100 mg = 1 tab(s), PO, Dailysimvastatin 20 mg oral tablet 20 mg = 1 tab(s), PO, Once a day (at bedtime)Problem list (past medical history):All ProblemsHypothyroidism / SNOMED CT 05331893 / ConfirmedCanceled: No Chronic Problems / Cerner NKPAsthma, mildHistoriesFamily History:No family history items have been selected or recorded.Procedure history:Cholecystectomy ([id number]).Hysterectomy and bilateral salpingo-oophorectomy sample ([id number]).Fracture ([id number]).Comments: 08:10 - Vandana Onofre wristDisc ([id number]).Comments:2016 08:11 - Vandana Onofre elvira and screwsSpur of ankle bone ([id number]).Comments:1 08:12 - Vandana Onofre footRotator cuff repair ([id number]).Comments: 08:12 - Vandana Onofre RNrightSocial History Alcohol Assessment Use: Never. Tobacco Assessment Never (less than 100 in lifetime) Tobacco Use:..Social & Psychosocial OlqcxsPjobwmy79/20/2017 Alcohol Use: JtrmnLjqreqh04/20/2017 Smoking tobacco use: Never (less than 100 in l.Physical ExaminationVS/MeasurementsVi jero Signs (last 24 hrs) Last ChartedHeart Rate Peripheral 80 bpm (DEC 12 12:30)Resp Rate 16 br/min (DEC 12 12:30)SBP 129 mmHg (DEC 12 12:41)DBP 83 mmHg (DEC 12 12:41)SpO2 93 % (DEC 12 12:30)Airway: Mallampati classification. Temporomandibular joint mobility: Good. Mouth: Adequate opening, Teeth ( Missing, pt only has 3 teeth. Denies any loose ). Neck: Full range of motion.Respiratory: Lungs are clear to auscultation.Cardiovascular: Regular rhythm.Neurologic: Alert, Oriented.Review / ManagementLaboratory ResultsPlanAmerican Society of Anesthesiologists#(ASA) physical status classification: Class II.Anesthetic Preoperative PlanAnesthesia: Monitored anesthesia care. Anesthetic plan, risks, benefits, and alternatives discussed with the patient and/or family. Patient verbalized understanding.[Electronicall y Signed on: 12/12/2016 14:32 EDT] Theodore Guevara MD[Verified on: 12/12/2016 14:32 EDT] Theodore Guevara MD Normal [facility] Inpatient Clinical Summaryon 12-12-2016 Inpatient Clinical Summary [facility] SURGERYClinical Discharge SummaryPERSON INFORMATIONName CLAUDETTE HERNANDES Age 61 Years [birth year]Sex FEMALE Language American PCP Provider, UnlistedMarital Status Single Med Service Ambulatory SurgeryN [id number] Acct# Arrival 12/12/16 12:05:33Visit Reason SURGERY - RELEASE RIGHT CARPAL TUNNEL Acuity LOS 005 08:24Address:[address] [facility] [address] [place] [id number]:PROVIDER INFORMATIONVITALS INFORMATIONVital Sign Triage LatestTemp OralTemp TemporalTemp IntravascularTemp AxillaryTemp [id number] Sat 96 % 96 %Respiratory Rate 16 br/min 16 br/minPeripheral Pulse Rate 81 bpm 80 bpmApical Heart RateBlood Pressure 130 mmHg / 70 mmHg 115 mmHg / 71 mmHgComment:MEDICAL INFORMATIONAllergy Info:Percocet 5/325; Vicodin; codeinePrescriptions Given:Home Meds Displayalendronate (alendronate 70 mg oral tablet) 1 tab(s) ( 70 mg ), PO, qWeek, # 12 tab(s), 0 Refill(s)levothyroxine (levothyroxine 25 mcg (0.025 mg) oral tablet) 1 tab(s) ( 25 mcg ), PO, Daily, # 30 tab(s), 0 Refill(s)montelukast (montelukast 10 mg oral tablet) 1 tab(s) ( 10 mg ), PO, qPM, # 30 tab(s), 0 Refill(s)sertraline (sertraline 100 mg oral tablet) 1 tab(s) ( 100 mg ), PO, Daily, # 30 tab(s), 0 Refill(s)simvastatin (simvastatin 20 mg oral tablet) 1 tab(s) ( 20 mg ), PO, Once a day (at bedtime), # 30 tab(s), 0 Refill(s)Medication List:Continue These Medications:alendronate (alendronate 70 mg oral tablet) 70 mg Oral every weeklevothyroxine (levothyroxine 25 mcg (0.025 mg) oral tablet) 25 mcg Oral every daymontelukast (montelukast 10 mg oral tablet) 10 mg Oral once a day (in the evening)sertraline (sertraline 100 mg oral tablet) 100 mg Oral every daysimvastatin (simvastatin 20 mg oral tablet) 20 mg Oral once a day (at bedtime)Comment:Lab and Radiology ResultsLaboratory or Other Results This Visit (last charted value for your 12/12/2016 visit) No Laboratory or Other Results This VisitDIET & ACTIVITYPatient Activity Level:Patient Diet:RegularPatient Activity Restrictions:DISCHARGE INFORMATIONDischarge Disposition:Discharge Location:[facility] REASON INCOMPLETE INFORMATIONPATIENT EDUCATION INFORMATIONInstructions:Juan gonzales- [facility]Follow up:With: Address: When:Conrado Mccoy [address] [place] [address] Business (2)With: Address: When:Unlisted ProviderDIAGNOSISRight carpal tunnel syndromeComment:PHYS DOC NOTES Normal [facility] Inpatient Patient Summaryon 12-12-2016 Inpatient Patient Summary [address] [address] patient Discharge InstructionsName: CLAUDETTE HERNANDES ADOB: [birth year] Address: [address] [place] [address] [address] [place] [address]Primary Care Provider:Name: Provider, UnlistedPhone:Discharge Diagnosis: Right carpal tunnel syndromeIf you received any narcotics, sedation, or any other medication that causes drowsiness for the next 24 hours, unless otherwise directed:? Do not drive a car.? Do not operate machinery such as power tools, lawn mowers, drills, sewing machines, or stoves? Avoid alcoholic beverages and drugs for allergies, nerves, or sleep? Do not make important personal or business decisions or sign any legal documentsLake [facility] would like to thank you for allowing us to assist you with your healthcare needs. The following includes patient education materials and information regarding your injury/illness.CLAUDETTE HERNANDES has been given the following list of follow-up instructions, prescriptions, and patient education materials:Follow-up InstructionsWith: Address: When:Conrado Mccoy [address] [place] [address], [address] [place], [phone] Business (2)With: Address: When:Unlisted ProviderMedicationsDuring the course of your visit, your medication list was updated with the most current information. The details of those changes are reflected below:Medications to Continue That Have Not ChangedOther Medicationsalendronate (alendronate 70 mg oral tablet) 1 tab(s) Oral every week.levothyroxine (levothyroxine 25 mcg (0.025 mg) oral tablet) 1 tab(s) Oral every day.montelukast (montelukast 10 mg oral tablet) 1 tab(s) Oral once a day (in the evening).sertraline (sertraline 100 mg oral tablet) 1 tab(s) Oral every day.simvastatin (simvastatin 20 mg oral tablet) 1 tab(s) Oral once a day (at bedtime).It is important to always keep an active list of medications available so that you can share with other providers and manage your medications appropriately. As an additional courtesy, we are also providing you with your final active medications list that you can keep with you.alendronate (alendronate 70 mg oral tablet) 1 tab(s) Oral every week.levothyroxine (levothyroxine 25 mcg (0.025 mg) oral tablet) 1 tab(s) Oral every day.montelukast (montelukast 10 mg oral tablet) 1 tab(s) Oral once a day (in the evening).sertraline (sertraline 100 mg oral tablet) 1 tab(s) Oral every day.simvastatin (simvastatin 20 mg oral tablet) 1 tab(s) Oral once a day (at bedtime).Take only the medications listed above. Contact your doctor prior to taking any medications not on this list.Diet & ActivityPatient Activity Level:Patient Diet: RegularPatient Activity Restrictions:Comment:Patient education materials, if any, will display belowDR. TOLENTINO POST OPERATIVE CARPEL TUNNEL INSTRUCTIONSSURGEONS WRITTEN INSTRUTCTIONS:-Keep your hand elevated above your elbow for the first 24 hours after surgery-Wiggle your fingers frequently while awake-DO NOT lift heavy objects or inside sales administrator forcefully with your hand-Change your dressing in 1 day and apply an regis bandage as directed with the thumb tucked towards the palm of your hand. This keeps the tension off your incision-You may shower in 1 day but do not submerge your hand under water. Put a 4x4 gauze and the regis bandage back on after you shower-If you have any problems or concerns, please call the office at [phone]-Follow up as scheduled Viruses or BacteriaWhat?s got you sick?Antibiotics only treat bacterial infections. Viral illnesses cannot be treated with antibiotics. When an antibiotic is not prescribed, ask your healthcare professional for tips on how to relieve symptoms and feel better. Usual CauseIllnessVirusesBacteria Antibiotic NeededCold/Runny Nose NOBronchitis/Chest Cold (in otherwise healthy children and adults) NOWhooping Cough YesFlu NOStrep Throat YesSore Throat (except strep) NOFluid in the middle ear (otitis media with effusion) NOUrinary Tract Infection YesAntibiotics Aren?t Always the Answerwww.cdc.gov/getsmart GET SMART Know When Antibiotics Beti.[place]. Department of Health and Human ServicesCenters for Disease Control and Prevention [facility] [place] [facility] Phase II Record Summary Primary Physician: Conrado Mccoy DO Finalized Date/Time: 12/12/16 18:18:35 Pt. Name: CLAUDETTE HERNANDES/Sex: 1955 FEMALE Med Rec #: [id number] Physician: Conrado Mccoy DO Financial #: [id number] Pt. Type: D Room/Bed: / Admit/Disch: 12/12/16 12:05:33 - Institution: Phase II Case Times MAGR Pre-Care Text: Patient is free from s/s of injury. Patient remains free from compromised physical state related to surgery or anesthesia. Patient comfort maintained. Patient/family verbalize understanding of discharge instructions. Entry 1 In PACU II 12/12/16 17:29:00 Discharge from PACU 12/12/16 18:18:00 II Last Modified By: Bina Limon RN 12/12/16 18:18:30 Post-Care Text: The patient remains free from s/s of injury. Patient's vital signs stable, circulation maintained, return to preop mental and physical status, opsite/dressing intact, minimal or absent nausea and vomiting, tolerates po intake. Patient verbalizes adequate pain control. Patient/family express understanding of discharge instructions. General Comments: Patient arrives back to PSW fast tracked post procedure. pt arrives to room from surgery drowsy but verbally responsive, moves all extremities, breathing w/o diff spo2 95% on room air, right hand up on pillow quick cap refill denies numbness or tingling, takes po ice water dinner ordered, disch instructions given and verbalized understanding of with family present, right hand dressing dry/iintact, 1750 eating dinner remains w/o complaints , 1800 up to BR gait steady voided IV dc'd dressed with minimal assist, remains w/o complaints disch home per WC with family Finalized By: Bina Limon RN Document Signatures Signed By: Bina Limon RN 12/12/16 18:18 Normal [facility] Operative Report - Surgeon/P corey 12-12-2016 Operative Report - Surgeon/Physician Procedure: Decompression of median nerve right wrist with release of carpal canalPre Op Diagnosis: Carpal tunnel syndrome rightPost Op Dianosis: Carpal tunnel syndrome rightSurgeon: Dr. Gabi Mccoy, DOAnesthesia: Conscious sedation with localIndication for Surgery: The patient had symptoms of carpal tunnel syndrome. There was evidence of progression. We discussed surgical and nonsurgical alternatives and the risks and benefits of each and the chances for success / failure. I recommended to proceed with surgery and the patient requested the same.Findings: The median nerve was noted to be present and intact within the carpal canal. The carpal canal/tunnel was stenoticBlood Loss: ScantSpecimen: NoneProcedure Summary: After administration of anesthesia the right upper extremity was sterilely prepped and draped in usual fashion. A timeout was taken in the operating room. A longitudinal incision was made over the carpal tunnel dissection was carried down beyond the palmaris longus and down to the transverse carpal ligament. Transverse carpal ligament was incised with a 15 blade and then released proximally and distally with a pair of Benjamin scissors. I made sure that the nerve was completely decompressed as it exited the distal volar forearm fascia and traveled through the carpal tunnel and into the hand. The wound was irrigated with copious amounts sterile saline and the skin was closed with nylon suture. Adaptic sterile dressings and an Regis bandage were applied with the thumb in appositionComplications: None[Electronically Signed on: 12/12/2016 17:29 EDT] Conrado Mccoy DO[Verified on: 12/12/2016 17:29 EDT] Conrado Mccoy DO [facility] .Auto Diff 1on 12-09-2016 Auto Baso % 0.3 % Normal 0.2-2.0 [facility] Comment on above: Performed By: #### 7 [id number], [id number], [id number] ####[facility] (DEFAULT)[address] [place] [address] Auto [place] % 10 % Normal 1-12 [facility] Comment on above: Performed By: #### 7 [id number], [id number], [id number] ####[facility] (DEFAULT)[address] [place] [address] Auto Neut % 63 % Normal 44-88 [facility] Comment on above: Performed By: #### 7 [id number], [id number], [id number] ####[facility] (DEFAULT)[address] [place] [address] Baso Abs# 0.0 x10 Normal 0.0-0.2 [facility] Comment on above: Performed By: #### 7 [id number], [id number], [id number] ####[facility] (DEFAULT)[address] [place] [address] Eos Abs# 0.1 x10 Normal 0.0-0.4 [facility] Comment on above: Performed By: #### 7 [id number], [id number], [id number] ####[facility] (DEFAULT)[address] [place] [address] Eosinophils/100 leukocytes 1.5 % Normal 0.9-4.0 [facility] Comment on above: Performed By: #### 7 [id number], [id number], [id number] ####[facility] (DEFAULT)[address] [place] [address] Lymphocytes 1.5 x10 Normal 1.3-2.9 [facility] Comment on above: Performed By: #### 7 [id number], [id number], [id number] ####[facility] (DEFAULT)[address] [place] [address] Lymphocytes/100 leukocytes 25 % Normal 14-48 [facility] Comment on above: Performed By: #### 7 [id number], [id number], [id number] ####[facility] (DEFAULT)[address] [place] [address] [place] Abs# 0.6 x10 Normal 0.0-0.8 [facility] Comment on above: Performed By: #### 7 [id number], [id number], [id number] ####[facility] (DEFAULT)[address] [place] [address] Neut Abs# 3.8 x10 Normal 1.5-9.2 [facility] Comment on above: Performed By: #### 7 229541, [id number], [id number] ####[facility] (DEFAULT)[address] [place] [address] BMP Standardon 12-09-2016 eGFR (non-black) mL/min/{1.73_m2} Invalid Interpretation Code [facility] Comment on above: Performed By: #### 7 938359, [id number], [id number] ####[facility] (DEFAULT)[address] [place] [address]96 eGFR (non-black) mL/min/{1.73_m2} Invalid Interpretation Code [facility] Comment on above: Result Comment: Toy Department Manager marky Kidney disease could be indicated at eGFRs of less than 60 ml/min/1.73m2. Kidney Failure is indicated at less than 15 ml/min/1.73m2 Performed By: #### 7 [id number], [id number], [id number] ####[facility] (DEFAULT)[address] [place] [address] Anion gap 11.0 mmol/L Normal 5.0-19.0 [facility] Comment on above: Performed By: #### 7 253736, [id number], [id number] ####[facility] (DEFAULT)[address] [place] [address] BUN/Creatinine Ratio 12.0 mg/mg Normal 4.6-16.2 [facility] Comment on above: Performed By: #### 7 781239, [id number], [id number] ####[facility] (DEFAULT)[address] [place] [address] Calcium 9.1 mg/dL Normal 8.9-10.3 [facility] Comment on above: Performed By: #### 7 394768, [id number], [id number] ####[facility] (DEFAULT)[address] [place] [address]206 Chloride 104 mmol/L Normal 101-111 [facility] Comment on above: Performed By: #### 7 156477, [id number], [id number] ####[facility] (DEFAULT)[address] [place] [address] CO2 26 mmol/L Normal 21-32 [facility] Comment on above: Performed By: #### 7 310984, [id number], [id number] ####[facility] (DEFAULT)[address] [place] [address] Creatinine 0.86 mg/dL Normal 0.60-1.30 [facility] Comment on above: Performed By: #### 7 863421, [id number], [id number] ####[facility] (DEFAULT)[address] [place] [address] Glucose mass conc 112.0 mg/dL Normal 74.0-118.0 [facility] Comment on above: Performed By: #### 7 749659, [id number], [id number] ####[facility] (DEFAULT)[address] [place] [address] Osmolality 274 mOsm/L Invalid Interpretation Code [facility] Comment on above: Performed By: #### 7 741901, [id number], [id number] ####[facility] (DEFAULT)[address] [place] [address] Potassium molar conc 3.8 mmol/L Normal 3.6-5.1 [facility] Comment on above: Performed By: #### 7 908606, [id number], [id number] ####[facility] (DEFAULT)[address] [place] [address] Sodium 137.0 mmol/L Normal 136.0-144. 0 [facility] Comment on above: Performed By: #### 7 861904, [id number], [id number] ####[facility] (DEFAULT)[address] [place] [address] Urea nitrogen 10 mg/dL Normal 8-26 [facility] Comment on above: Performed By: #### 7 501929, [id number], [id number] ####[facility] (DEFAULT)[address] [place] [address] CBC w/ Auto Diffon 7 Erythrocyte distribution width Auto Ratio (RBC) 13.2 % Normal 11.5-15.0 [facility] Comment on above: Performed By: #### 7 829147, 19863386, [id number] ####[facility] (DEFAULT)[address] [place] [address] Erythrocytes (RBC) 4.40 x10 Normal 3.70-5.30 [facility] Comment on above: Performed By: #### 7 598053, [id number], [id number] ####[facility] (DEFAULT)[address] [place] [address]885 Hematocrit (HCT) 39.4 % Normal 33.7-40.4 [facility] Comment on above: Performed By: #### 7 917955, [id number], [id number] ####[facility] (DEFAULT)[address] [place] [address] 03456 Hemoglobin mass conc (Bld) 13.8 g/dL Normal 11.3-15.9 [facility] Comment on above: Performed By: #### 7 145789, [id number], [id number] ####[facility] (DEFAULT)[address] [place] [address] 14211 Man Diff? Auto Normal [facility] Comment on above: Performed By: #### 7 206976, [id number], [id number] ####[facility] (DEFAULT)[address] [place] [address] 33817 MCH 31 pg Normal 24-34 [facility] Comment on above: Performed By: #### 7 385159, [id number], [id number] ####[facility] (DEFAULT)[address] [place] [address] 35909 MCHC mass conc (RBC) 35 g/dL Normal 26-37 [facility] Comment on above: Performed By: #### 7 539713, [id number], [id number] ####[facility] (DEFAULT)[address] [place] [address] 03101 MCV 90 fL Normal 81-100 [facility] Comment on above: Performed By: #### 7 498855, [id number], [id number] ####[facility] (DEFAULT)[address] [place] [address] 91173 Platelet mean volume (PMV) 8.6 fL Normal 6.3-10.2 [facility] Comment on above: Performed By: #### 7 595395, [id number], [id number] ####[facility] (DEFAULT)[address] [place] [address] 76871 Platelets 194 x10 Normal 138-427 [facility] Comment on above: Performed By: #### 7 698639, [id number], [id number] ####[facility] (DEFAULT)[address] [place] [address] WBC (Leukocytes) 6.0 x10 Invalid Interpretation Code [facility] Comment on above: Performed By: #### 7 191914, [id number], [id number] ####[facility] (DEFAULT)[address] [place] [address] Vital Signs Date Time Vital Sign Value Performing Clinician Karlos singh 11-03-2021 15:36-0400 Blood Pressure Location LINDA MASON [facility] 11-03-2021 15:36-0400 Diastolic blood pressure 87 mm[Hg] LINDA MASON [facility] 11-03-2021 15:36-0400 Heart rate 101 /min LINDA MASON [facility] 11-03-2021 15:36-0400 Systolic blood pressure 136 mm[Hg] LINDA ISABELLA [facility] Encounters Encounter Date Encounter Type Care Provider Facility Start: 07-18-2023 End: 07-18-2023 ambulatory JESSICA AICHHOLZ Not Available Start: 04-13-2023 End: 04-13-2023 ambulatory JESSICA AICHHOLZ Not Available Start: 01-31-2023 End: 01-31-2023 ambulatory JESSICA AICHHOLZ Not Available Start: 11-09-2022 End: 11-10-2022 ambulatory LINDA MASON Facility:[facility] Start: 11-09-2022 End: 11-09-2022 Patient encounter procedure LINDA MASON [facility] Start: 06-29-2022 ambulatory WARD SERVICE SUPERVISOR JESSICA AICHHOLZ Facil ity:[facility] Start: 05-25-2022 End: 05-26-2022 ambulatory WARD SERVICE SUPERVISOR JESSICA AICHHOLZ Facility:[facility] Start: 05-09-2022 End: 05-10-2022 ambulatory WARD SERVICE SUPERVISOR JESSICA SOSA Facility:[facility] Start: 05-02-2022 End: 05-02-2022 ambulatory WARD SERVICE SUPERVISOR JESSICA SOSA Facility:[facility] Start: 03-11-2022 End: 03-11-2022 ambulatory Jessica Sosa Work Phone: [facility] Work Phone: Start: 03-11-2022 End: 03-11-2022 Patient encounter procedure Jessica Sosa Work Phone: [facility] Work Phone: Start: 12-08-2021 End: 12-09-2021 ambulatory RODNEY SOSA Facility:[facility] Start: 11-03-2021 End: 11-03-2021 Patient encounter procedure LINDA MASON [facility] Start: 08-09-2021 End: 08-10-2021 ambulatory RODNEY SOSA Facility:[facility] Start: 06-24-2021 End: 06-25-2021 ambulatory RODNEY SOSA Facility:[facility] Start: 03-18-2021 End: 03-19-2021 ambulatory MD NIDHI MICHAELS Facility:[facility] Start: 01-26-2021 End: 01-26-2021 Emergency department patient visit MD NIDHI MICHAELS Facility:[facility] Start: 03-05-2019 End: 03-06-2019 Patient encounter procedure RALPH SOTO Facility:[facility] Start: 01-16-2017 End: 01-24-2017 Ambulatory [facility] Facility:[facility] Start: 12-12-2016 End: 12-20-2016 Ambulatory [facility] Facility:[facility] Start: 12-10-2016 End: 12-13-2016 Ambulatory [facility] Facility:[facility] Procedures Date Procedure Procedure Detail Performing Clinician Start: 03-11-2022 Plain chest X-ray Jessica Sosa Work Phone: Start: 06-27-2018 Repair of stress inc ontinence by suprapubic sling LINDA MASON Start: 10-09-2017 Cystourethroscopy an d dilation of bladder LINDA MASON Start: 02-20-2017 Colonoscopy LINDA GONZALEZ Start: 06-11-2014 left synovectomy to Achilles tendon as well as left Blanca's exostectomy with heel spur excision with application of cork screw anchor and left posterior splint LINDA MASON Start: 10-10-2013 left Blanca's calca graciela exostectomy with Arthrex 3.5 mm curved corkscrews tendon anchor. Synovectomy, left Achilles tendon 1 LINDA MASON Comment on above: posterior splint to the left leg Start: 05-29-2013 Left percutaneous ac hilles tenotomy LINDA MASON Start: 05-05-2010 Cystoscopy LINDA GONZALEZ Start: 02-20-2009 Hysterectomy LINDA GONZALEZ Bilateral tubal ligation RENNY MASON Cholecystectomy LINDA KAY Comment on above: 2011 elbow LINDA MASON elbow surgery 3 LINDA KAY Comment on above: left Hysterectomy LINDA MASON neck surgery 4 LINDA BURTR Y Comment on above: 2009 Tarsal tunnel release AMPARO MASON Comment on above: left wrist surgery 6 LINDA CARMEL RY Comment on above: left Payers Date Payer Category Payer Private Health Insurance [id number] 2022 Self-pay 2021 Unknown [id number] 2021 Medicaid 2021 Unknown 2017 Unknown [id number] 2016 Medicare [id number] 1959 Medicaid [id number] 1959 Private Health Insurance [id number] 1959 Unknown [id number] 1955 Unknown [id number] 2.16.8 40.1.308176.3.579.2.647 1955 Unknown [id number] 2.16. 840.1.017625.3.579.2.196 1955 Unknown [id number] 2.16. 840.1.344718.3.579.2.196 1955 Unknown [id number] 2.16.84 0.1.294850.3.579.2.593 1955 Unknown [id number] 2.16.84 0.1.999905.3.579.2.593 1955 Unknown [id number] 2.16.84 0.1.084067.3.579.2.593 1955 Unknown [id number] 2.16.84 0.1.637512.3.579.2.593 1955 Unknown [id number] 2.16.84 0.1.231662.3.579.2.593 1955 Unknown [id number] 2.16.84 0.1.188802.3.579.2.593 1954 Unknown [id number] 2.16.84 0.1.331396.3.579.2.593 1954 Unknown [id number] 2.16.8 40.1.575859.3.579.2.727 1955 Unknown [id number] 2.16.84 0.1.328824.3.579.2.1259 1955 Unknown [id number] 2.16.84 0.1.288568.3.579.2.1259 1955 Unknown [id number] 2.16.840 .1.936393.3.579.2.1259 Private Health Insurance [id number] [id number] Unknown 2.16.8 40.1.841927.3.579.2.531 Social History Date Type Detail Facility Start: 11-03-2021 Tobacco smoking status Never s moked tobacco (finding) [facility] Sex Assigned At Female [facility] Start: 1955 Sex Assigned At Female [facility] Functional Status Date Assessment Result Facility 11-03-2021 Functional Status N/A [facility] Clinical Note 12-09-2021 Note Date & Type Note Facility 12-09-2021 Note PROCEDURE: XR HIP RT 2 3V WO PELVIS HISTORY: Pain in right hip joint , acute; no known injury COMPARISON: None. FINDINGS: BONES:No fracture, acute abnormality, or significant arthropathy. SOFT TISSUES:No visible soft tissue swelling. EFFUSION:None visible. OTHER: Negative. IMPRESSION: 1. No acute bone abnormality or significant degenerative joint disease. Electronically authenticated by: JEROME AYALA Date: 2021-12-09 06:48 [facility] Discharge instructions 11-03-2021 Note Date & Type Note Facility 11-03-2021 Hospital Discharg e instructions Patient Education 11/03/2021 15:47:31 Overactive Bladder, Adult Overactive Bladder, Adult Overactive bladder refers to a condition in which a person has a sudden need to pass urine. The person may leak urine if he or she cannot get to the bathroom fast enough (urinary incontinence). A person with this condition may also wake up several times in the night to go to the bathroom. Overactive bladder is associated with poor nerve signals between your bladder and your brain. Your bladder may get the signal to empty before it is full. You may also have very sensitive muscles that make your bladder squeeze too soon. These symptoms might interfere with daily work or social activities. What are the causes? This condition may be associated with or caused by: Urinary tract infection. Infection of nearby tissues, such as the prostate. Prostate enlargement. Surgery on the uterus or urethra. Bladder stones, inflammation, or tumors. Drinking too much caffeine or alcohol. Certain medicines, especially medicines that get rid of extra fluid in the body (diuretics). Muscle or nerve weakness, especially from: ?A spinal cord injury. ?Stroke. ?Multiple sclerosis. ?Parkinson's disease. Diabetes. Constipation. What increases the risk? You may be at greater risk for overactive bladder if you: Are an older adult. Smoke. Are going through menopause. Have prostate problems. Have a neurological disease, such as stroke, dementia, Parkinson's disease, or multiple sclerosis (MS). Eat or drink things that irritate the bladder. These include alcohol, spicy food, and caffeine. Are overweight or obese. What are the signs or symptoms? Symptoms of this condition include: Sudden, strong urge to urinate. Leaking urine. Urinating 8 or more times a day. Waking up to urinate 2 or more times a night. How is this diagnosed? Your health care provider may suspect overactive bladder based on your symptoms. He or she will diagnose this condition by: A physical exam and medical history. Blood or urine tests. You might need bladder or urine tests to help determine what is causing your overactive bladder. You might also need to see a health care provider who specializes in urinary tract problems (urologist). How is this treated? Treatment for overactive bladder depends on the cause of your condition and whether it is mild or severe. You can also make lifestyle changes at home. Options include: Bladder training. This may include: ?Learning to control the urge to urinate by following a schedule that directs you to urinate at regular intervals (timed voiding). ?Doing Kegel exercises to strengthen your pelvic floor muscles, which support your bladder. Toning these muscles can help you control urination, even if your bladder muscles are overactive. Special devices. This may include: ?Biofeedback, which uses sensors to help you become aware of your body's signals. ?Electrical stimulation, which uses electrodes placed inside the body (implanted) or outside the body. These electrodes send gentle pulses of electricity to strengthen the nerves or muscles that control the bladder. ?Women may use a plastic device that fits into the vagina and supports the bladder (pessary). Medicines. ?Antibiotics to treat bladder infection. ?Antispasmodics to stop the bladder from releasing urine at the wrong time. ?Tricyclic antidepressants to relax bladder muscles. ?Injections of botulinum toxin type A directly into the bladder tissue to relax bladder muscles. Lifestyle changes. This may include: ?Weight loss. Talk to your health care provider about weight loss methods that would work best for you. ?Diet changes. This may include reducing how much alcohol and caffeine you consume, or drinking fluids at different times of the day. ?Not smoking. Do not use any products that contain nicotine or tobacco, such as cigarettes and e-cigarettes. If you need help quitting, ask your health care provider. Surgery. ?A device may be implanted to help manage the nerve signals that control urination. ?An electrode may be implanted to stimulate electrical signals in the bladder. ?A procedure may be done to change the shape of the bladder. This is done only in very severe cases. Follow these instructions at home: Lifestyle Make any diet or lifestyle changes that are recommended by your health care provider. These may include: ?Drinking less fluid or drinking fluids at different times of the day. ?Cutting down on caffeine or alcohol. ?Doing Kegel exercises. ?Losing weight if needed. ?Eating a healthy and balanced diet to prevent constipation. This may include: ?Eating foods that are high in fiber, such as fresh fruits and vegetables, whole grains, and beans. ?Limiting foods that are high in fat and processed sugars, such as fried and sweet foods. General instructions Take kdeb-[id number] and prescription medicines only as told by your health care provider. If you were prescribed an antibiotic medicine, take it as told by your health care provider. Do not stop taking the antibiotic even if you start to feel better. Use any implants or pessary as told by your health care provider. If needed, wear pads to absorb urine leakage. Keep a journal or log to track how much and when you drink and when you feel the need to urinate. This will help your health care provider monitor your condition. Keep all follow-up visits as told by your health care provider. This is important. Contact a health care provider if: You have a fever. Your symptoms do not get better with treatment. Your pain and discomfort get worse. You have more frequent urges to urinate. Get help right away if: You are not able to control your bladder. Summary Overactive bladder refers to a condition in which a person has a sudden need to pass urine. Several conditions may lead to an overactive bladder. Treatment for overactive bladder depends on the cause and severity of your condition. Follow your health care provider's instructions about lifestyle changes, doing Kegel exercises, keeping a journal, and taking medicines. This information is not intended to replace advice given to you by your health care provider. Make sure you discuss any questions you have with your health care provider. Document Released: 12/03/2009 Document Revised: 05/30/2019 Document Reviewed: 02/22/2018 [employer] Patient Education 2020 [employer]. Follow Up Care 10/15/2021 09:20:30 With:LINDA MASON PA-C, URL Address: [address] [place] [address]. [place] [address] When:1 year [facility] Clinical Note 01-26-2021 Note Date & Type Note Facility 01-26-2021 Note Procedure: Portable AP view of the chest. Clinical information: 65-year-old female with chest pain x3 weeks. COVID negative. Comparison: None. Findings: Lungs/pleura: Mild bibasilar patchy groundglass opacities. No pneumothorax or evidence for pleural effusion. Heart/mediastinum: Mildly enlarged cardiac silhouette. Bones/soft tissues: No gross acute or aggressive abnormality. IMPRESSION: 1. Probably infectious/inflammatory mild bibasilar patchy groundglass opacities. 2. Mildly enlarged cardiac silhouette. Final Dictated by: Henri Cr MD Dictated DT/TM: 01/26/2021 2:55 pm Signed by: Henri Cr MD Signed (Electronic Signature): 01/26/2021 2:56 pm (If Report Is Signed, Electronically Signed in Other Vendor System) [facility] Evaluation + Plan note Note Date & Type Note Facility Evaluation + Plan note Future Appointments Appointment Date:11/09/2022 02:00:00 PM Scheduled Provider:LINDA MASON PA-C Location:[facility] Appointment Type:URO Office Visit [facility] Evaluation note Note Date & Type Note Facility Evaluation note [facility] Hospital course Narrative Note Date & Type Note Facility Hospital course Narrative No data available for this section [facility] Discharge instructions Note Date & Type Note Facility Hospital Discharge instructions No data available for this section [facility] Progress note Note Date & Type Note Facility Progress note No data available for this section [facility] Summary Purpose Family History No Family History Records FoundNo Family History Records FoundNo Family History Records FoundNo Family History Records FoundNo Family History Records FoundNo Family History Records FoundNo Family History Records FoundNo Family History Records Found Advance Directives No Advanced Directives Records Found Advance Directive Response Recorded Date/ Time Advance Directives No March 11, 2022 10:04am Hospital Course Note MR#: [id number] I [facility] Pt. Name: Claudette Hernandes Admitted: 03/05/2019 Discharged: 03/06/2019 Date of : 1955 Physician: Ralph Soto MD DISCHARGE SUMMARY PRIMARY CARE PHYSICIAN: Jessica Sosa NDorothy PRINCIPAL PROBLEMS: 1. Unstable angina-ruled out. 2. Costochondritis. 3. Pulmonary nodule. 4. Dyslipidemia. 5. Hypothyroidism. 6. Asthma, mild intermittent. CONSULTANTS: Cardiology. PROCEDURES PERFORMED DURING HOSPITALIZATION: Stress test, echocardiogram. HOSPITAL COURSE: This is a 63-year-old female with a past medical history as above, who was in her usual state of health when she suddenly developed a severe episode of substernal chest pain that radiated to her neck. She states at the time of this episode, she was sitting in a chair. She had associated shortness of breath, which was partially relieved by nitroglycerin and she was transported via EMS to [facility]. In [place], an EKG was done that showed no significant changes and initial t (more content not included)... Chief Complaint and Reason for Visit Chief Complaint m20.11 Additional Source Comments INFORMATION SOURCE (unrecogn ized section and content) DATE CREATED AUTHOR 08/08/2017 [facility] DATE CREATED AUTHOR AUTHOR'S ORGANIZ ATION 03/19/2019 [facility] DATE CREATED AUTHOR AUTHOR'S ORGANIZ ATION 03/19/2021 [facility] DATE CREATED AUTHOR AUTHOR'S ORGANIZ ATION 04/06/2021 [facility] DATE CREATED AUTHOR AUTHOR'S ORGANIZ ATION 03/26/2022 [facility] DATE CREATED AUTHOR AUTHOR'S ORGANIZ ATION 06/22/2022 [facility] DATE CREATED AUTHOR AUTHOR'S ORGANIZ ATION 11/11/2022 [facility] DATE CREATED AUTHOR AUTHOR'S ORGANIZ ATION 07/18/2023 [facility] EPIC Care Team (unrecognized sect ion and content) Team Status: Inactive Member Role Status Dates Jessica Sosa Primary Care Provider Active Yordan Hodge DPM Attending Provider Active Team Status: Active Member Role Status Dates Jessica Sosa Primary Care Provider Active Goals (unrecognized section and content) Goals may be documented in a n alternate section FOR RECORDS PERTAINING TO PATIENTS WHO ARE OR HAVE BEEN ENROLLED IN A CHEMICAL DEPENDENCY/SUBSTANCEABUSE PROGRAM, SOME INFORMATION MAY BE OMITTED. This clinical summary was aggregated from multiple sources. Caution should be exercised in using it in the provision of clinical care. This summary normalizes information from multiple sources, and as a consequence, information in this document may materially change the coding, format and clinical context of patient data. In addition, data may be omitted in some cases. CLINICAL DECISIONS SHOULD BE BASED ON THE PRIMARY CLINICAL RECORDS. [facility] [employer] provides no warranty or guarantee of the accuracy or completeness of information in this document.
== END 2023-08-07 20:25 | disposition home or self-care (01) ==
LOC: SLEEP 20:45
PROVIDERS: PCP Nurse Practitioner; Visit Provider Nurse Practitioner
DX: G47.33 Obstructive sleep apnea (adult) (pediatric) (principal)
CPT/HCPCS: 95811

== ENCOUNTER 2023-08-31 13:35 | Emergency (ER) | payer MEDICARE, MEDICAID, SELFPAY ==
[2023-08-31 13:38] VITALS: BP 170/105; PULSE 88; TEMP 36.4; O2SAT 98; BMI 32.5
--- NOTE | 2023-08-31 13:41 | ED.GENADUL1 ---
HPI HPI - General Adult General Chief complaint: Extremity Injury, Upper Stated complaint: UPPER EXTREMITY PAIN, LEFT Time Seen by Provider: 08/31/23 13:37 History of Present Illness HPI narrative: Patient is a 67-year-old female who presents to the emergency department for an injury to the left wrist that occurred just prior to arrival, approximately 1 hour ago. Patient dropped a picnic table on the volar left wrist. She has a minimal area of abrasion and ecchymosis to the volar left wrist. She denies any pain to the hand. No medications taken prior to arrival. No other associated injuries. She is right-hand dominant Related Data Previous Rx's ?Medication ?Instructions ?Recorded ketorolac 10 mg tablet 10 mg PO TID PRN pain #10 tabs 08/31/23 Allergies Allergy/AdvReac Type Severity Reaction Status Date / Time codeine Allergy Severe Rash Verified 08/31/23 13:43 Opioid HPI Opioid Management Most Recent Opioid Data: Last Pain Scale 5 08/31/23 13:44 Review of Systems ROS Constitutional Denies: fever or chills Ears, nose, mouth, and throat Denies: throat pain or nasal congestion Respiratory Denies: shortness of breath Gastrointestinal Denies: nausea or vomiting Musculoskeletal Reports: extremity pain; Denies: back pain or neck pain Integumentary/Breast Denies: rash Neurological Denies: headache Hematologic/Lymphatic Denies: easy bruising or easy bleeding Exam Narrative Exam Narrative: Gen.: Awake, alert, in no distress Head: Normocephalic, atraumatic ENT: Moist mucous membranes Respiratory: No respiratory distress Extremities: Abrasion noted to the volar left wrist. 2+ left radial pulse. Normal hand candy dipper strength in the left hand. No obvious deformity of the left wrist, no circumferential swelling or injury to the dorsum of the forearm. No proximal left forearm pain or tenderness Psych: Normal mood and affect Neuro: No focal neuro deficit Skin: Warm, dry, intact Constitutional Vital Signs, click to edit/add: Last Vital Signs Temp 97.6 F 08/31/23 13:38 Pulse 88 08/31/23 13:38 Resp 16 08/31/23 13:38 BP 170/105 H 08/31/23 13:38 Pulse Ox 98 08/31/23 13:38 O2 Del Method Room Air 08/31/23 13:38 Course Vital Signs Vital signs: Vital Signs Temperature 97.6 F 08/31/23 13:38 Pulse Rate 88 08/31/23 13:38 Respiratory Rate 16 08/31/23 13:38 Blood Pressure 170/105 H 08/31/23 13:38 Pulse Oximetry 98 08/31/23 13:38 Oxygen Delivery Method Room Air 08/31/23 13:38 Temperature 97.6 F 08/31/23 13:38 Pulse Rate 88 08/31/23 13:38 Respiratory Rate 16 08/31/23 13:38 Blood Pressure 170/105 H 08/31/23 13:38 Pulse Oximetry 98 08/31/23 13:38 Oxygen Delivery Method Room Air 08/31/23 13:38 Medical Decision Making MDM Narrative Medical decision making narrative: X-rays are unremarkable. Patient placed in an Michael wrap and remains neurovascularly intact. NSAIDs given for home. Follow-up with PCP. Rest, ice, elevate. Neurovascularly intact at discharge. Return to the ER if symptoms change or worsen SUPERVISED APC VISIT, PHYSICIAN ATTESTATION: Based on the medical record the care appears appropriate. ? Medical Records Medical records reviewed: Yes I reviewed the patient's medical records Imaging Data XR wrist: Attestation: I have reviewed the pertinent imaging results. Discharge Plan Discharge Stand Alone Forms: Portal Instructions Chief Complaint: Extremity Injury, Upper Clinical Impression: Contusion of left wrist Patient Disposition: Home, Self-Care Time of Disposition Decision: 14:06 Condition: Good Prescriptions / Home Meds: New ketorolac 10 mg tablet 10 mg PO TID PRN (Reason: pain) Qty: 10 0RF Print Language: Ivorian Instructions: Contusion in Adults (ED) Referrals: Physician,Non-Staff, MD [Primary Care Provider] - 1 week
[2023-08-31] MEDS: HYDROCODONE/ACET 5-325 MG TABLET 1 TAB PO (13:54)
--- NOTE | 2023-08-31 14:05 | XR_ITS ---
The [address] [address] Patient Name: DANELLE ROSS MRN: [id number] date: 1955 Sex: F Assigned Patient Location: ER Current Patient Location: ED.MAIN Accession/Order Number: [id number] Exam Date: 08/31/2023 14:00 Report Date: 08/31/2023 14:31 At the request of: PAULINE JOAQUIN Procedure: XR wrist LT min 3V EXAM: XR wrist LT min 3V HISTORY: Contusion COMPARISON: None. TECHNIQUE: 3 views of the left wrist were obtained. FINDINGS: There is no evidence of an acute fracture or dislocation. Ulnar minus variance is present. Is mild narrowing of the radiocarpal joint space. There is also mild narrowing at the first carpometacarpal joint. The joint space otherwise intact. Gervais sutures are seen along the ulnar aspect. XR/XR wrist LT min 3V IMPRESSION: No acute fracture or dislocation. Mild degenerative changes are present. There is evidence of prior surgery. Electronically authenticated by: JOSE DE JESUS PEREZ Date: 08/31/2023 14:31
== END 2023-08-31 14:16 | disposition home or self-care (01) ==
PROVIDERS: Emergency Provider Student in an Organized Health Care Education/Training Program; PCP Nurse Practitioner
DX: S60.212A Contusion of left wrist, initial encounter (principal); W20.8XXA Other cause of strike by thrown, projected or falling object, initial encounter
CPT/HCPCS: 73110; 99283

== ENCOUNTER 2023-10-25 11:10 | Outpatient (OUT) | payer MEDICARE, MEDICAID, SELFPAY ==
--- NOTE | 2023-10-25 11:14 | MM_ITS ---
Patient Name: DANELLE ROSS MR#: [id number] : 1955 Exam Date: 10/25/2023 Ordering Doctor: RODNEY Sosa CNP RADIOLOGY REPORT PROCEDURE: MM TOMOSYNTHESIS SCREENING BI COMPARISON: MM TOMOSYNTHESIS SCREENING BI, 09/27/2022. MG MAMM SCREEN 3D GERARD CAD, 06/24/2021. MG MAMM SCREEN GERARD W CAD, 08/20/2018. MG MAMM GERARD SCRN W CAD DIG, 02/28/2014. INDICATIONS: Screening Calculator Name NCI Breast Cancer Risk Assessment Tool 5 Year Breast Cancer Risk 1.10% Lifetime Breast Cancer Risk 3.50% Personal Breast Cancer No Personal Ovarian Cancer No Treatments None Family Cancers Mother with pancreatic cancer at age 59. LOCATION: [facility] BREAST COMPOSITION: There are scattered areas of fibroglandular density. FINDINGS: DIAGNOSTIC CATEGORY 2--BENIGN FINDING: RIGHT BREAST: No significant suspicious finding. Scattered benign-appearing calcifications are present. No significant change has occurred. LEFT BREAST: No significant suspicious finding. Scattered benign-appearing calcifications are present. No significant change has occurred. RECOMMENDATIONS: ROUTINE MAMMOGRAM AND CLINICAL EVALUATION IN 12 MONTHS. PLEASE NOTE: A NORMAL MAMMOGRAM DOES NOT EXCLUDE THE POSSIBILITY OF BREAST CANCER. A CLINICALLY SUSPICIOUS PALPABLE LUMP SHOULD BE BIOPSIED. Dictated by: Gerald Cole M.D. on 10/27/2023 at 12:52 Approved by: Gerald Cole M.D. on 10/27/2023 at 13:40
--- OUTSIDE RECORDS SUMMARY | 2023-10-25 11:21 | XMS_ITS | CCD ---
Demographics Address [address] [place] [address] Preferred Language en Marital Status Single Confucianism Affiliation Unknown Race White Ethnic Group Not or Lati no Author Organization [facility] Care Team Providers Care Switch House Operator Name Role Phone Conrado Mccoy Unavailable Unavail able Conrado Mccoy Unavailable Unavail able Provider, Unlisted Unavailable Unavailable Jackelin Espinal Unavailable Unavailable Conrado Mccoy Unavailable Unavail able Conrado Mccoy Unavailable Unavail able Provider, Unlisted Unavailable Unavailable Conrado Ramos Unavailable Unavailable Theodore Guevara Unavailable Unavailable Conrado Mccoy Unavailable Unavail able Conrado Mccoy Unavailable Unavail able Provider, Unlisted Unavailable Unavailable ROHINI SOTOI Admitting Unavailable ROHINI SOTOI Attending Unavailable ZAHIDA BARKER Referring Unavailable RAGHAV SOSAA Primary Care Unavailable MD NIDHI MICHAELS Attending Unavailable MD NIDHI MICHAELS Primary Care Unavailable MD NIDHI MICHAELS Primary Care Unavailable MD NIDHI MICHAELS Consulting Unavailable MD SLICK STATON Attending Unavailab JESSICA Egan Primary Care Physician [phone] Jessica Sosa Primary Care Provider [phone] RADHA Hodge Attending Provider Jessica Sosa Primary Care Unavailable Yordan Hodge Attending Unavailable Yordan Hodge Admitting Unavailable AICCARLOS, RODNEY NEELY Admitting Unavailable AICRODNEY GONZALEZ Attending Unavailable FRANCIA, RODNEY JESSICA Consulting Unavailable RODNEY SOSA JESSICA Primary Care Unavailable FRANCIA, RODNEY JESSICA Admitting Unavailable DR JACKELIN STEELE V Consulting Unavailable AICHHOLZ, FRINGE KNOTTER JESSICA Attending Unavailable AICHHOLZ, FRINGE KNOTTER JESSICA Primary Care Unavailable AICHHOLZ, FRINGE KNOTTER JESSICA Consulting Unavailable JACKELIN HODGE Consulting Unavailable AICHHOLZ, FRINGE KNOTTER JESSICA Admitting Unavailable AICHHOLZ, FRINGE KNOTTER JESSICA Attending Unavailable AICHHOLZ, FRINGE KNOTTER JESSICA Consulting Unavailable AICHHOLZ, FRINGE KNOTTER JESSICA Primary Care Unavailable DR JEROME AYALA Consulting Unavailable AICHHOLZ, FRINGE KNOTTER JESSICA Admitting Unavailable AICHHOLZ, FRINGE KNOTTER JESSICA Attending Unavailable AICHHOLZ, FRINGE KNOTTER JESSICA Consulting Unavailable AICHHOLZ, FRINGE KNOTTER JESSICA Primary Care Unavailable JOSE DE JESUS PEREZ Consulting Unavailable AICHHOLZ, FRINGE KNOTTER JESSICA Primary Care Unavailable AICHHOLZ, FRINGE KNOTTER JESSICA Attending Unavailable AICHHOLZ, FRINGE KNOTTER JESSICA Admitting Unavailable AICHHOLZ, FRINGE KNOTTER JESSICA Consulting Unavailable AICHHOLZ, FRINGE KNOTTER JESSICA Admitting Unavailable AICHHOLZ, FRINGE KNOTTER JESSICA Attending Unavailable AICHHOLZ, FRINGE KNOTTER JESSICA Primary Care Unavailable AICHHOLZ, FRINGE KNOTTER JESSICA Admitting Unavailable AICHHOLZ, FRINGE KNOTTER JESSICA Attending Unavailable AICHHOLZ, FRINGE KNOTTER JESSICA Consulting Unavailable AICHHOLZ, FRINGE KNOTTER JESSICA Primary Care Unavailable DR JEROME AYALA Consulting Unavailable LINDA MASON Attending Unavailable AICHHOLZ, JESSICA Attending Unavailable AICHHOLZ, JESSICA Attending Unavailable AICHHOLZ, JESSICA Attending Unavailable AICHHOLZ, JESSICA Attending Unavailable Allergies Allergy Classification Reported Allergen(s) Allergy Type Date of Onset Reaction(s) Facility (5 sources) acetaminophen / HYDROcodone; Translations: [Vicodin] Drug Allergy 3 Eruption of skin (disorder) [facility] Repository (1 source) acetaminophen / oxyCODONE; Translations: [Percocet 5/325] [facility] codeine; Translations: [codeine] Drug Allergy 0 Eruption of skin (disorder), Weal (disorder) [facility] Repository (2 sources) Acetaminophen / oxyCODONE Drug Allergy 0 [facility] Repository (3 sources) Acetaminophen; Translations: [acetaminophen] Drug Allergy Weal (disorder) [facility] (3 sources) Acetaminophen / oxyCODONE; Translations: [acetaminophen-ox ycodone] Drug Allergy Cutaneous eruption (morphologic abnormality) [facility] (3 sources) acetaminophen / propoxyphene; Translations: [acetaminophen-pr opoxyphene] Drug Allergy Eruption of skin (disorder) [facility] (3 sources) Cortisone; Translations: [cortisone] Drug Allergy 6 Unknown [facility] (3 sources) oxyCODONE; Translations: [oxycodone] Drug Allergy Weal (disorder) [facility] (1 source) Cortisone Drug Allergy 6 [facility] Repository (1 source) Penicillins Drug allergy (disorder) 3 [facility] Repository (1 source) Darvocet-N 100 Drug allergy (disorder) 0 [facility] Repository (1 source) Codeine; Translations: [codeine sulfate] Drug Allergy [facility] Repository Medications Current Medications Medication Drug Class(es) [...] BID, # 60 tab(s), Refills(s) 11, Pharmacy: [facility]/pharmacy #[id number], 165.1, cm, 03/31/20 9:27:00 EST, Height/Length [...] 05-25-2022 BASO # 0.0 103/ul Normal 0.0-0.1 [facility] Comment on above: Performed By: #### C BC #### [facility] [address] [place] [address] Dr. Dedrick Kinsey Basophils/100 WBC (Bld) 0.5 % Normal 0.2-2.0 [facility] Comment on above: Performed By: #### C BC #### [facility] [address] [place] [address] Dr. Dedrick Kinsey EO # 0.1 103/ul Normal 0.0-0.7 [facility] Comment on above: Performed By: #### C BC #### [facility] [address] [place] [address] Dr. Dedrick Kinsey Eosinophils/100 WBC (Bld) 2.5 % Normal 0.9-7.0 [facility] Comment on above: Performed By: #### C BC #### [facility] [address] [place] [address] Dr. Dedrick Kinsey Erythrocyte distribution width (RBC) [Ratio] 13.2 % Normal 11.0-15.0 [facility] Comment on above: Performed By: #### C BC #### [facility] [address] [place] [address] Dr. Dedrick Kinsey Hematocrit (Bld) [Volume fraction] 37.5 % Normal 36.0-48.0 [facility] Comment on above: Performed By: #### C BC #### [facility] [address] [place] [address] Dr. Dedrick Kinsey Hemoglobin (Bld) [Mass/Vol] 12.6 g/dL Normal 12.0-16.0 [facility] Comment on above: Performed By: #### C BC #### [facility] [address] [place] [address] Dr. Dedrick Kinsey IG # 0.01 10e3/ul Normal 0.00-0.03 [facility] Comment on above: Performed By: #### C BC #### [facility] [address] [place] [address] Dr. Dedrick Kinsey IG % 0.2 % Normal 0.0-0.5 [facility] Comment on above: Performed By: #### C BC #### [facility] [address] [place] [address] Dr. Dedrick Kinsey LYMPH # 1.5 103/ul Normal 1.2-3.8 [facility] Comment on above: Performed By: #### C BC #### [facility] [address] [place] [address] Dr. Dedrick Kinsey Lymphocytes/100 WBC (Bld) 34.0 % Normal 20.5-60.0 [facility] Comment on above: Performed By: #### C BC #### [facility] [address] [place] [address] Dr. Dedrick Kinsey MANUAL DIFF REQ NO Normal [facility] Comment on above: Performed By: #### C BC #### [facility] [address] [place] [address] Dr. Dedrick Kinsey MCH (RBC) [Entitic mass] 29.9 pg Normal 26.7-34.0 [facility] Comment on above: Performed By: #### C BC #### [facility] [address] [place] [address] Dr. Dedrick Kinsey MCHC (RBC) [Mass/Vol] 33.6 g/dL Normal 29.9-35.2 [facility] Comment on above: Performed By: #### C BC #### [facility] [address] [address] [address] Dedrick Kinsey MCV (RBC) [Entitic vol] 89.1 fL Normal 81.0-99.0 [facility] Comment on above: Performed By: #### C BC #### [facility] [address] [address] [address] Dedrick Kinsey MONO # 0.4 103/ul Normal 0.3-0.8 [facility] Comment on above: Performed By: #### C BC #### [facility] [address] [address] [address] Dedrick Kinsey Monocytes/100 WBC (Bld) 9.0 % Normal 1.7-12.0 [facility] Comment on above: Performed By: #### C BC #### [facility] [address] [place] [address] Dr. Dedrick Kinsey NEUT # 2.3 103/ul Normal 1.4-6.5 [facility] Comment on above: Performed By: #### C BC #### [facility] [address] [place] [address] Dr. Dedrick Kinsey Neutrophils/100 WBC (Bld) 53.8 % Normal 43.0-75.0 [facility] Comment on above: Performed By: #### C BC #### [facility] [address] [place] [address] Dr. Dedrick Kinsey Platelet mean volume (Bld) [Entitic vol] 9.2 fL Critically low 9.5-13.5 [facility] Comment on above: Performed By: #### C BC #### [facility] [address] [place] [address] Dr. Dedrick Kinsey PLT 188 103/ul Normal 150-450 [facility] Comment on above: Performed By: #### C BC #### [facility] [address] [place] [address] Dr. Dedrick Kinsey RBC 4.21 106/ul Normal 4.20-5.40 [facility] Comment on above: Performed By: #### C BC #### [facility] [address] [address] [address] Dedrick Kinsey WBC 4.4 103/ul Normal 4.0-11.0 [facility] Comment on above: Performed By: #### C BC #### [facility] [address] [address] [address] Dedrick Kinsey FREE T4on 05-25-2022 Free T4 [Mass/Vol] 0.79 ng/dL Normal 0.76-1.46 [facility] Comment on above: Performed By: #### V ITAD, FT4 ####[facility] [address] [address]Dr. Dedrick Kinsey LIPID PROFILEon 05-25-2022 CHOL-HDL RATIO NORM SEE BELOW Normal [facility] Comment on above: Result Comment: 3.3 - 4.4 LOW RISK 4.4 - 7.1 AVERAGE RISK 7.1 - 11.0 MODERATE RISK >11.0 HIGH RISK Performed By: #### T SH, CMP, LIPID ####[facility] [address] [address]Dr. Dedrick Kinsey Cholesterol [Mass/Vol] 175 mg/dL Normal <=200 [facility] Comment on above: Performed By: #### T SH, CMP, LIPID ####[facility] [address] [address]Dr. Dedrick Kinsey Cholesterol in HDL [Mass/Vol] 39 mg/dL Critically low 40-60 [facility] Comment on above: Performed By: #### T SH, CMP, LIPID ####[facility] [address] [address]Dr. Dedrick Kinsey Cholesterol in LDL [Mass/Vol] 113.6 mg/dL Normal [facility] Comment on above: Performed By: #### T SH, CMP, LIPID ####[facility] [address] [address]Dr. Dedrick Kinsey Cholesterol.total/Cho lesterol in HDL [Mass ratio] 4.5 {ratio} Normal [facility] Comment on above: Performed By: #### T SH, CMP, LIPID ####[facility] [address] [address]Dr. Dedrick Kinsey HDL NORMAL > or = 60 mg/dl - LO W CARDIOVASCULAR RISK <40 mg/dl - HIGH CARDIOVASCULAR RISK Normal [facility] Comment on above: Performed By: #### T SH, CMP, LIPID ####[facility] [address] [address]Dr. Dedrick Kinsey LDL CALC NORMAL SEE BELOW Normal [facility] Comment on above: Result Comment: <100 mg/dl OPTIMAL 100 - 129 mg/dl NEAR OR ABOVE OPTIMAL 130 - 159 mg/dl BORDERLINE HIGH 160 - 189 mg/dl HIGH >190 mg/dl VERY HIGH Performed By: #### T SH, CMP, LIPID ####[facility] [address] [address]Dr. Dedrick Kinsey Triglyceride [Mass/Vol] 112 mg/dL Normal <=150 [facility] Comment on above: Performed By: #### T SINTIA, CMP, LIPID ####[facility] [address] [address]Dr. Dedrick Kinsey VLDL CALC 22.4 mg/dL Normal [facility] Comment on above: Performed By: #### T SINTIA, CMP, LIPID ####[facility] [address] [address]Dr. Dedrick Kinsey PROF 14(COMP METB)on 023 Albumin [Mass/Vol] 3.5 g/dL Normal 3.4-5.0 [facility] Comment on above: Performed By: #### T SH, CMP, LIPID ####[facility] [address] [address]Dr. Dedrick Kinsey Albumin/Globulin [Mass ratio] 1.0 {ratio} Normal [facility] Comment on above: Performed By: #### T SH, CMP, LIPID ####[facility] [address] [address]Dr. Dedrick Kinsey ALP [Catalytic activity/Vol] 84 U/L Normal 46-116 [facility] Comment on above: Performed By: #### T SH, CMP, LIPID ####[facility] [address] [address]Dr. Dedrick Kinsey ALT [Catalytic activity/Vol] 37 U/L Normal 14-59 [facility] Comment on above: Performed By: #### T SH, CMP, LIPID ####[facility] [address] [address]Dr. Dedrick Kinsey Anion gap [Moles/Vol] 11.7 mmol/L Normal Th e [facility] Comment on above: Performed By: #### T SH, CMP, LIPID ####[facility] [address] [address]Dr. Dedrick Kinsey AST [Catalytic activity/Vol] 20 U/L Normal 15-37 [facility] Comment on above: Performed By: #### T SINTIA, CMP, LIPID ####[facility] [address] [address]Dr. Dedrick Kinsey Bilirubin [Mass/Vol] 0.8 mg/dL Normal 0.2-1.0 [facility] Comment on above: Performed By: #### T SINTIA, CMP, LIPID ####[facility] [address] [address]Dr. Dedrick Kinsey Calcium [Mass/Vol] 9.4 mg/dL Normal 8.5-10.1 [facility] Comment on above: Performed By: #### T SINTIA, CMP, LIPID ####[facility] [address] [address]Dr. Dedrick Kinsey Chloride [Moles/Vol] 106 mmol/L Normal 98-107 [facility] Comment on above: Performed By: #### T SINTIA, CMP, LIPID ####[facility] [address] [address]Dr. Dedrick Kinsey CO2 [Moles/Vol] 28.4 mmol/L Normal 21.0-32.0 [facility] Comment on above: Performed By: #### T SH, CMP, LIPID ####[facility] [address] [address]Dr. Dedrick Kinsey Creatinine [Mass/Vol] 0.77 mg/dL Normal 0.55-1.02 [facility] Comment on above: Performed By: #### T SH, CMP, LIPID ####[facility] [address] [address]Dr. Dedrick Kinsey EGFR-AF [facility] >60 Normal >=60 [facility] Comment on above: Performed By: #### T SH, CMP, LIPID ####[facility] [address] [address]Dr. Dedrick Kinsey EGFR-NON AF [facility] >60 Normal >=60 [facility] Comment on above: Performed By: #### T SH, CMP, LIPID ####[facility] [address] [address]Dr. Dedrick Kinsey Globulin (S) [Mass/Vol] 3.6 g/dL Normal [facility] Comment on above: Performed By: #### T SH, CMP, LIPID ####[facility] [address] [address]Dr. Dedrick Kinsey Glucose [Mass/Vol] 106 mg/dL Normal 74-106 [facility] Comment on above: Performed By: #### T SH, CMP, LIPID ####[facility] [address] [address]Dr. Dedrick Kinsey Potassium [Moles/Vol] 4.1 mmol/L Normal 3.5-5.1 [facility] Comment on above: Performed By: #### T SH, CMP, LIPID ####[facility] [address] [place], [place] [address]Dr. Dedrick Kinsey Protein [Mass/Vol] 7.1 g/dL Normal 6.4-8.2 [facility] Comment on above: Performed By: #### T SH, CMP, LIPID ####[facility] [address] [address]Dr. Dedrick Kinsey Sodium [Moles/Vol] 142 mmol/L Normal 136-145 [facility] Comment on above: Performed By: #### T SH, CMP, LIPID ####[facility] [address] [address]Dr. Dedrick Kinsey Urea nitrogen [Mass/Vol] 10.0 mg/dL Normal 7.0-18.0 [facility] Comment on above: Performed By: #### T SH, CMP, LIPID ####[facility] [address] [address]Dr. Dedrick Kinsey Urea nitrogen/Creatinine [Mass ratio] 13.0 mg/mg Normal [facility] Comment on above: Performed By: #### T SH, CMP, LIPID ####[facility] [address] [address]Dr. Dedrick Kinsey TSHon 05-25-2022 TSH 2.611 uIU/mL Normal 0.358-3.74 0 [facility] Comment on above: Performed By: #### T SH, CMP, LIPID ####[facility] [address] [address]Dr. Dedrick Kinsey VITAMIN D 25 OHon 05-25-2022 VIT D 25-OH 31.7 ng/mL Normal [facility] Comment on above: Performed By: #### V EWA, FT4 ####[facility] [address] [address]Dr. Dedrick Kinsey VIT D RANGES SEE BELOW Normal [facility] Comment on above: Result Comment: <20 ng/mL Vit D deficient 20 - <30 ng/mL Vit D insufficient 30 - 100 ng/mL Vit D sufficient >100 ng/mL Potential Toxicity Performed By: #### V ITCHIO, FT4 ####[facility] [address] [address]Dr. Dedrick Kinsey XR CSPINE 2_3 VIEWSon 2022 [...] JEROME AYALA Date: 2022-05-25 11:30 Normal [facility] XR TSPINE 3 VIEWSon 05-26-19 23 XR [...] JEROME AYALA Date: 2022-05-25 11:32 Normal [facility] XR CHEST 2 Von 05-09-2022 XR CHEST [...] JESUS PEREZ Date: 2022-05-09 12:45 Normal [facility] Covid-19 PCR (CVDTB)on 04-20 SARS-CoV-2 (COVID-19) RNA JAYY+probe Ql (Unsp spec) Not detected Normal NOT DETECTED [facility] Comment on above: Result Comment: When diagnostic [...] for this test is supported by the [employer] of Health and Human Service's declaration that [...] longer be used). Performed By: #### [facility] ####[facility] [address] [place], [place] [address]NtChanda Kinsey Basic Metabolic Panelon 02-21 Anion gap [Moles/Vol] 11.2 mmol/L Normal 6.0-15.[address] [facility] Comment on above: Order Comment: Reason for Exam HAV (hallux abducto valgus), right Performed By: #### C BC, BMP #### [address] Calcium [Mass/Vol] 9.2 mg/dL Normal 8.2-10.2 [facility] Comment on above: Order Comment: Reason for Exam HAV (hallux abducto valgus), right Result Comment: PERF ORMED BY: [place] [address] PATHOLOGIST CONSTRUCTION SECRETARY SHRUTHI KIRKPATRICK M.D. Performed By: #### C BC, BMP #### [facility] [address] [place] [address] [place] Chloride [Moles/Vol] 102 mmol/L Normal 95-114 [facility] Comment on above: Order Comment: Reason for Exam HAV (hallux abducto valgus), right Performed By: #### C BC, BMP #### [facility] [address] [id number] [place] CO2 [Moles/Vol] 27.0 mmol/L Normal 22.0-30.0 [facility] Comment on above: Order Comment: Reason for Exam HAV (hallux abducto valgus), right Performed By: #### C BC, BMP #### [facility] [address] [place] [address] [place] Creatinine [Mass/Vol] 0.80 mg/dL Normal 0.44-1.03 [facility] Comment on above: Order Comment: Reason for Exam HAV (hallux abducto valgus), right Performed By: #### C BC, BMP #### [facility] [address] [id number] [place] Estimated GFR ( Kate > 60 [facility] [place] Comment on above: Order Comment: Reason for Exam HAV (hallux abducto valgus), right Result Comment: GFR estimated reference range: According to KDOQI guidelines, <60 ml/min/1.73m2 is sufficient to diagnose a patient with chronic kidney disease. Performed By: #### C BC, BMP #### [facility] [address] [id number] [place] Estimated GFR (Non- Am > 60 [facility] [place] Comment on above: Order Comment: Reason for Exam HAV (hallux abducto valgus), right Performed By: #### C BC, BMP #### [facility] [address] [id number] [place] Glucose [Mass/Vol] 99 mg/dL Normal 70-100 [facility] Comment on above: Order Comment: Reason for Exam HAV (hallux abducto valgus), right Result Comment: [place] Glucose Reference Range is dependent on time and content of last meal. Glucose of more than 200 mg/dL in a nonstressed, ambulatory subject supports the diagnosis of Diabetes Mellitus. ADA recommended reference range Performed By: #### C BC, BMP #### [facility] [address] [place] [address] [place] Potassium [Moles/Vol] 4.2 mmol/L Normal 3.5-5.1 [facility] Comment on above: Order Comment: Reason for Exam HAV (hallux abducto valgus), right Performed By: #### C BC, BMP #### [facility] [address] [place] [address] [place] Sodium [Moles/Vol] 136 mmol/L Normal 136-146 [facility] Comment on above: Order Comment: Reason for Exam HAV (hallux abducto valgus), right Performed By: #### C BC, BMP #### [address] Urea nitrogen [Mass/Vol] 10 mg/dL Normal 9-23 [facility] Comment on above: Order Comment: Reason for Exam HAV (hallux abducto valgus), right Performed By: #### C BC, BMP #### [address] Basophils Auto (Bld) [#/Vol] Ordered By: Yordan Hodge on 03-11-2022 Basophils (Bld) [#/Vol] 0.0 10*3/uL 0.0-0.2 [facility] Basophils/100 WBC Auto (Bld) Ordered By: Yordan Hodge on 03-11-2022 Basophils/100 WBC (Bld) 0.4 % . [facility] Complete Blood Count Auto Di ffon 03-11-2022 Basophils (Bld) [#/Vol] 0.0 10*3/uL Normal 0.0-0.2 [facility] Comment on above: Order Comment: Reaso n for Exam HAV (hallux abducto valgus), right Result Comment: PERF ORMED BY: [place] [address] PATHOLOGIST CONSTRUCTION SECRETARY SHRUTHI KIRKPATRICK M.D. Performed By: #### C NICHOLE, BMP #### [place] [address] [place] Basophils/100 WBC (Bld) 0.4 % Normal . [facility] Comment on above: Order Comment: Reaso n for Exam HAV (hallux abducto valgus), right Performed By: #### C BC, BMP #### [place] [address] [place] Eosinophils (Bld) [#/Vol] 0.1 10*3/uL Normal 0.0-0.45 [facility] Comment on above: Order Comment: Reaso n for Exam HAV (hallux abducto valgus), right Performed By: #### C BC, BMP #### [place] [address] [place] Eosinophils/100 WBC (Bld) 1.4 % Normal . [facility] Comment on above: Order Comment: Reaso n for Exam HAV (hallux abducto valgus), right Performed By: #### C BC, BMP #### [address] Erythrocyte distribution width (RBC) [Ratio] 13.1 % Normal 11.9-15.3 [facility] Comment on above: Order Comment: Reaso n for Exam HAV (hallux abducto valgus), right Performed By: #### C BC, BMP #### [address] Hematocrit (Bld) [Volume fraction] 39.5 % Normal 34.0-46.4 [facility] Comment on above: Order Comment: Reaso n for Exam HAV (hallux abducto valgus), right Performed By: #### C BC, BMP #### [address] Hemoglobin (Bld) [Mass/Vol] 13.3 g/dL Normal 11.8-15.4 [facility] Comment on above: Order Comment: Reaso n for Exam HAV (hallux abducto valgus), right Performed By: #### C BC, BMP #### [address] Lymphocytes (Bld) [#/Vol] 1.6 10*3/uL Normal 1.00-4.8 [facility] Comment on above: Order Comment: Reaso n for Exam HAV (hallux abducto valgus), right Performed By: #### C BC, BMP #### [place] [address] [place] Lymphocytes/100 WBC (Bld) 22.0 % Normal . [facility] Comment on above: Order Comment: Reaso n for Exam HAV (hallux abducto valgus), right Performed By: #### C BC, BMP #### [place] [address] MCH (RBC) [Entitic mass] 30.0 pg Normal 24.7-34.3 [facility] Comment on above: Order Comment: Reaso n for Exam HAV (hallux abducto valgus), right Performed By: #### C BC, BMP #### [address] MCV (RBC) [Entitic vol] 88.8 fL Normal 80-100 [facility] Comment on above: Order Comment: Reaso n for Exam HAV (hallux abducto valgus), right Performed By: #### C BC, BMP #### [address] Mean Corpuscular HGB Conc 33.7 g/dL Normal 32.0-35.0 [facility] Comment on above: Order Comment: Reaso n for Exam HAV (hallux abducto valgus), right Performed By: #### C BC, BMP #### [address] Monocytes (Bld) [#/Vol] 0.5 10*3/uL Normal 0.0-0.8 [facility] Comment on above: Order Comment: Reaso n for Exam HAV (hallux abducto valgus), right Performed By: #### C BC, BMP #### [address] Monocytes/100 WBC (Bld) 7.0 % Normal . [facility] Comment on above: Order Comment: Reaso n for Exam HAV (hallux abducto valgus), right Performed By: #### C BC, BMP #### [place] [address] [place] Neutrophils (Bld) [#/Vol] 5.0 10*3/uL Normal 1.8-7.7 [facility] Comment on above: Order Comment: Reaso n for Exam HAV (hallux abducto valgus), right Performed By: #### C BC, BMP #### [place] [address] [place] Neutrophils/100 WBC (Bld) 69.2 % Normal . [facility] Comment on above: Order Comment: Reaso n for Exam HAV (hallux abducto valgus), right Performed By: #### C BC, BMP #### [facility] [address] NRBC% 0.2 /100{WBC} Normal 0-0.5 [facility] Comment on above: Order Comment: Reaso n for Exam HAV (hallux abducto valgus), right Performed By: #### C BC, BMP #### [facility] [address] Platelet mean volume (Bld) [Entitic vol] 7.6 fL Normal 6.3-10.7 [facility] Comment on above: Order Comment: Reaso n for Exam HAV (hallux abducto valgus), right Performed By: #### C BC, BMP #### [facility] [address] [place] [address] [place] Platelets (Bld) [#/Vol] 212 10*3/uL Normal 150-450 [facility] Comment on above: Order Comment: Reaso n for Exam HAV (hallux abducto valgus), right Performed By: #### C BC, BMP #### [facility] [address] RBC (Bld) [#/Vol] 4.44 10*6/uL Normal 3.60-5.00 [facility] Comment on above: Order Comment: Reaso n for Exam HAV (hallux abducto valgus), right Performed By: #### C BC, BMP #### [facility] [address] [place] [id number] [place] WBC (Bld) [#/Vol] 7.3 10*3/uL Normal 3.8-11.6 [facility] Comment on above: Order Comment: Reaso n for Exam HAV (hallux abducto valgus), right Performed By: #### C BC, BMP #### [facility] [address] [place] [address] [place] Creatinine and Glomerular fi ltration rate.predicted panel (S/P/Bld)Ordered By: Yordan Hodge on 03-11-2022 Creatinine [Mass/Vol] 0.80 mg/dL 0.44-1.03 [facility] ECG 12 lead ECGon 03-11-2022 ECG 12 lead ECG [facility] Main [address] [address] Electrocardiograph Report Signed Patient: Claudette Hernandes MR#: [id number] : 1955 Acct:[id number] Age/Sex: 66 / F ADM Date: 03/11/22 Loc: XD Room: Type: [facility] CLI Attending Dr: Yordan Hodge DPM [...] Signed By Laura Chavez MD 1801 Normal [facility] Eosinophils Auto (Bld) [#/Vo l]Ordered By: Yordan Hodge on 03-11-2022 Eosinophils (Bld) [#/Vol] 0.1 10*3/uL 0.0-0.45 [facility] Eosinophils/100 WBC Auto (Bl d)Ordered By: Yordan Hodge on 03-11-2022 Eosinophils/100 WBC (Bld) 1.4 % . [facility] Erythrocyte distribution wid th Auto (RBC) [Ratio]Ordered By: Yordan Hodge on 03-11-2022 Erythrocyte distribution width (RBC) [Ratio] 13.1 % 11.9-15.3 [facility] Estimated glomerular filtrat ion rate (GFR) non- AmericanOrdered By: Yordan Hodge on 03-11-2022 GFR/1.73 sq M.predicted among non-blacks MDRD (S/P/Bld) [Vol rate/Area] > 60 mL/Min [facility] Hematocrit Auto (Bld) [Volum e fraction]Ordered By: Yordan Hodge on 03-11-2022 Hematocrit (Bld) [Volume fraction] 39.5 % 34.0-46.4 [facility] Hemoglobin [Mass/volume] in BloodOrdered By: Yordan Hodge on 03-11-2022 Hemoglobin (Bld) [Mass/Vol] 13.3 g/dL 11.8-15.4 [facility] Leukocytes [#/volume] correc slim for nucleated erythrocytes in Blood by Automated counOrdered By: Yordan Hodge on 03-11-2022 WBC corrected for nucl RBC Auto (Bld) [#/Vol] 7.3 10*3/uL 3.8-11.6 [facility] Lymphocytes Auto (Bld) [#/Vo l]Ordered By: Yordan Hodge on 03-11-2022 Lymphocytes (Bld) [#/Vol] 1.6 10*3/uL 1.00-4.8 [facility] Lymphocytes/100 WBC Auto (Bl d)Ordered By: Yordan Hodge on 03-11-2022 Lymphocytes/100 WBC (Bld) 22.0 % . [facility] MCH Auto (RBC) [Entitic mass ]Ordered By: Yordan Hodge on 03-11-2022 MCH (RBC) [Entitic mass] 30.0 pg 24.7-34.3 [facility] MCHC Auto (RBC) [Mass/Vol]Or dered By: Yordan Hodge on 03-11-2022 MCHC (RBC) [Mass/Vol] 33.7 g/dL 32.0-35.0 [facility] MCV Auto (RBC) [Entitic vol] Ordered By: Yordan Hodge on 03-11-2022 MCV (RBC) [Entitic vol] 88.8 fL 80-100 [facility] Monocytes Auto (Bld) [#/Vol] Ordered By: Yordan Hodge on 03-11-2022 Monocytes (Bld) [#/Vol] 0.5 10*3/uL 0.0-0.8 [facility] Monocytes/100 WBC Auto (Bld) Ordered By: Yordan Hodge on 03-11-2022 Monocytes/100 WBC (Bld) 7.0 % . [facility] Neutrophils Auto (Bld) [#/Vo l]Ordered By: Yordan Hodge on 03-11-2022 Neutrophils (Bld) [#/Vol] 5.0 10*3/uL 1.8-7.7 [facility] Neutrophils/100 WBC Auto (Bl d)Ordered By: Yordan Hodge on 03-11-2022 Neutrophils/100 WBC (Bld) 69.2 % . [facility] No Panel InformationOrdered By: Yordan Hodge on 03-11-2022 Estimated GFR () > 60 mL/Min [facility] Comment on above: GFR estimated refere nce range: According to KDOQI guidelines, <60 ml/min/1.73m2 is sufficient to diagnose a patient with chronic kidney disease. Pharmacy Creatinine Clearance (Chem N/A [facility] Nucleated erythrocytes [Pres ence] in Blood by Automated countOrdered By: Yordan Hodge on 03-11-2022 Nucleated RBC Auto Ql (Bld) 0.2 /100{WBC} 0-0.5 [facility] Platelet mean volume Auto (B ld) [Entitic vol]Ordered By: Yordan Hodge on 03-11-2022 Platelet mean volume (Bld) [Entitic vol] 7.6 fL 6.3-10.7 [facility] Platelets Auto (Bld) [#/Vol] Ordered By: Yordan Hodge on 03-11-2022 Platelets (Bld) [#/Vol] 212 10*3/uL 150-450 [facility] RBC Auto (Bld) [#/Vol]Ordere d By: Yordan Hodge on 03-11-2022 RBC (Bld) [#/Vol] 4.44 10*6/uL 3.60-5.00 [facility] Serum or plasma anion gap de terminationOrdered By: Yordan Hodge on 03-11-2022 Anion gap [Moles/Vol] 11.2 mmol/L 6.0-15.[address] [facility] Serum or plasma calcium yaz urement (mass/volume)Ordered By: Yordan Hodge on 03-11-2022 Calcium [Mass/Vol] 9.2 mg/dL 8.2-10.2 [facility] Serum or plasma chloride ady surement (moles/volume)Ordered By: Yordan Hodge on 03-11-2022 Chloride [Moles/Vol] 102 mmol/L 95-114 [facility] Serum or plasma glucose yaz urement (mass/volume)Ordered By: Yordan Hodge on 03-11-2022 Glucose [Mass/Vol] 99 mg/dL 70-100 [facility] Comment on above: ADA recommended refe rence rangeRandom Glucose Reference Range is dependent on time and content of last meal. Glucose of more than 200 mg/dL in a nonstressed, ambulatory subject supports the diagnosis of Diabetes Mellitus. Serum or plasma potassium me asurement (moles/volume)Ordered By: Yordan Hodge on 03-11-2022 Potassium [Moles/Vol] 4.2 mmol/L 3.5-5.1 [facility] Serum or plasma sodium measu rement (moles/volume)Ordered By: Yordan Hodge on 03-11-2022 Sodium [Moles/Vol] 136 mmol/L 136-146 [facility] Serum or plasma total carbon dioxide measurement (moles/volume)Ordered By: Yordan Hodge on 03-11-2022 CO2 [Moles/Vol] 27.0 mmol/L 22.0-30.0 [facility] Serum or plasma urea nitroge n measurement (mass/volume)Ordered By: Yordan Hodge on 03-11-2022 Urea nitrogen [Mass/Vol] 10 mg/dL 9-23 [facility] WBC Auto (Bld) [#/Vol]Ordere d By: Yordan Hodge on 03-11-2022 WBC (Bld) [#/Vol] 7.3 10*3/uL 3.8-11.6 [facility] XR chest 2V*on 03-11-2022 XR chest 2V* [facility] Main [address] [address] XRay Report Signed Patient: Claudette Hernandes MR#: [id number] : 1955 Acct:[id number] Age/Sex: 66 / F ADM Date: 03/11/22 Loc: XD [facility]: [facility] Attending Dr: Yordan Hodge DPM Copies to: [...] Carmela Carlos M.D.03/11/2022 2:29 PM Dictation Location: [place] [address] Transcribed By: [facility] 03/11/22 1429 Dictated By: Carmela Carlos MD 03/11/22 1428 Signed By: 03/11/22 1429 Normal [facility] LIPID PROFILEon 08-09-2021 CHOL-HDL RATIO NORM SEE BELOW Normal [facility] Comment on above: Result Comment: 3.3 - 4.4 LOW RISK 4.4 - 7.1 AVERAGE RISK 7.1 - 11.0 MODERATE RISK >11.0 HIGH RISK Performed By: #### L IPID, AST, ALT #### [facility] [address] [place] [address] [address] Dedrick Kinsey Cholesterol [Mass/Vol] 195 mg/dL Normal <=200 [facility] Comment on above: Performed By: #### L IPID, AST, ALT #### [facility] [address] [place] [address] [address] Dedrick Kinsey Cholesterol in HDL [Mass/Vol] 47 mg/dL Normal 40-60 [facility] Comment on above: Performed By: #### L IPID, AST, ALT #### [facility] [address] [place] [address] [address] Dedrick Kinsey Cholesterol in LDL [Mass/Vol] 130.0 mg/dL Normal [facility] Comment on above: Performed By: #### L IPID, AST, ALT #### [facility] [address] [place] [address] [address] Dedrick Kinsey Cholesterol.total/Cho lesterol in HDL [Mass ratio] 4.1 {ratio} Normal [facility] Comment on above: Performed By: #### L IPID, AST, ALT #### [facility] [address] [place] [address] [address] Dedrick Kinsey HDL NORMAL > or = 60 mg/dl - LO W CARDIOVASCULAR RISK <40 mg/dl - HIGH CARDIOVASCULAR RISK Normal [facility] Comment on above: Performed By: #### L IPID, AST, ALT #### [facility] [address] [place] [address] [address] Dedrick Kinsey LDL CALC NORMAL SEE BELOW Normal [facility] Comment on above: Result Comment: <100 mg/dl OPTIMAL 100 - 129 mg/dl NEAR OR ABOVE OPTIMAL 130 - 159 mg/dl BORDERLINE HIGH 160 - 189 mg/dl HIGH >190 mg/dl VERY HIGH Performed By: #### L IPID, AST, ALT #### [facility] [address] [place] [address] [address] Dedrick Kinsey Triglyceride [Mass/Vol] 90 mg/dL Normal <=150 [facility] Comment on above: Performed By: #### L IPID, AST, ALT #### [facility] [address] [place] [address] [address] Dedrick Kinsey VLDL CALC 18.0 mg/dL Normal [facility] Comment on above: Performed By: #### L IPID, AST, ALT #### [facility] [address] [place], [place] [address] Dr. Dedrick Strange 08-09-2021 AST [Catalytic activity/Vol] 16 U/L Normal 15-37 [facility] Comment on above: Performed By: #### L IPID, AST, ALT #### [facility] [address] [place], [place] [address] Dr. Dedrick Kinsey SGPTon 08-09-2021 ALT [Catalytic activity/Vol] 26 U/L Normal 14-59 [facility] Comment on above: Performed By: #### L IPID, AST, ALT #### [facility] [address] [place], [place] [address] Dr. Dedrick Kinsey MG MAMM SCREEN 3D GERARD CADon 06-24-2021 MG MAMM SCREEN 3D GERARD CAD Patient: CLAUDETTE HERNANDES Exam Date: 06/24/2021 : 1955 Gender:F Ordering : [facility] Admission #: [id number] Family : Order #: [id number] CLICK HERE TO VIEW EXAM RADIOLOGY REPORT [...] pancreatic cancer at age 58. LOCATION: [facility] BREAST COMPOSITION: Scattered areas fibroglandular density. FINDINGS: [...] Steele MD on 06/24/2021 at 11:40 Normal [facility] XR DEXA BONE DENSITYon 06-24 XR DEXA BONE DENSITY DEXA Bone Density S rosatanya CLINICAL: Evaluate bone mineral density. Postmenopausal COMPARISON: None FINDINGS: The bone density study was assessed by dual-energy x-ray absorptiometry with the [employer] scanner. The test results are expressed in [...] by: JACKELIN HODGE Date: 2021-06-24 11:38 Normal [facility] XR Chest 2 Viewson 2 XR Chest [...] Electronically Signed in Other Vendor System) Normal [facility] .eGFRon 01-26-2021 eGFR Non-AA >60 Normal >=60 [facility] Comment on above: Order Comment: Order [...] years Performed By: #### E GFR #### [place] [address] eGFR AA >60 Normal >=60 [facility] Comment on above: Order Comment: Order added by Discern rule Result Comment: See comment. Performed By: #### E GFR #### [place] [address] AMI Initon 01-26-2021 Initial Myoglobin 35.8 ng/mL Normal 14.3-65.8 [facility] Comment on above: Performed By: #### A MI1 #### [place] [address] Initial Troponin <0.03 Normal 0.00-0.03 [facility] Comment on above: Result Comment: An i ncreased Troponin-I value, in the absence of myocardial ischemia, may indicate other etiologies of cardiac damage. Performed By: #### A MI1 #### [place] [id number] CBC w/ Diffon 01-26-2021 Erythrocyte distribution width (RBC) [Ratio] 13.1 % Normal 11.6-14.8 [facility] Comment on above: Performed By: #### C BC #### [place] [address] Hematocrit (Bld) [Volume fraction] 37.4 % Normal 36.0-46.0 [facility] Comment on above: Performed By: #### C BC #### [place] [address] Hemoglobin (Bld) [Mass/Vol] 13.1 g/dL Normal 12.0-16.0 [facility] Comment on above: Performed By: #### C BC #### [place] [address] MCH (RBC) [Entitic mass] 30.2 pg Normal 27.0-35.0 [facility] Comment on above: Performed By: #### C BC #### [place] [address] MCHC 35.0 % Normal 31.0-37.0 [facility] Comment on above: Performed By: #### C BC #### [place] [address] MCV (RBC) [Entitic vol] 86.2 fL Normal 80.0-100.0 [facility] Comment on above: Performed By: #### C BC #### [place] [address] Platelet 196 x10*3/mcL Normal 150-350 [facility] Comment on above: Performed By: #### C BC #### [place] [address] Platelet mean volume (Bld) [Entitic vol] 7.4 fL Low 7.5-11.5 [facility] Comment on above: Performed By: #### C BC #### [place] [address] RBC 4.34 x10*6/mcL Normal 3.80-5.20 [facility] Comment on above: Performed By: #### C BC #### [place] [address] WBC 5.0 x10*3/mcL Normal 4.5-11.0 [facility] Comment on above: Performed By: #### C BC #### [place] [address] CMPon 01-26-2021 Albumin [Mass/Vol] 3.6 g/dL Low 3.7-5.3 [facility] Comment on above: Performed By: #### C OMP #### [place] [address] Albumin/Globulin [Mass ratio] 1.2 {ratio} Normal 1.1-2.2 [facility] Comment on above: Performed By: #### C OMP #### [place] [address] Alk Phos 68 IU/L Normal 34-104 [facility] Comment on above: Performed By: #### C OMP #### [address] [address] ALT [Catalytic activity/Vol] 21 U/L Normal 7-52 [facility] Comment on above: Performed By: #### C OMP #### [address] [address] Anion gap [Moles/Vol] 11 mmol/L Normal 7-17 [facility] Comment on above: Performed By: #### C OMP #### [address] [address] AST [Catalytic activity/Vol] 19 U/L Normal 13-39 [facility] Comment on above: Performed By: #### C OMP #### [address] [address] Bili Total 0.8 mg/dL Normal 0.3-1.0 [facility] Comment on above: Performed By: #### C OMP #### [address] [address] Calcium [Mass/Vol] 8.9 mg/dL Normal 8.6-10.3 [facility] Comment on above: Performed By: #### C OMP #### [address] [address] Chloride 105 IU/L Normal 98-107 [facility] Comment on above: Performed By: #### C OMP #### [place] [address] CO2 [Moles/Vol] 27 mmol/L Normal 21-31 [facility] Comment on above: Performed By: #### C OMP #### [place] [address] Creatinine [Mass/Vol] 0.7 mg/dL Normal 0.6-1.2 [facility] Comment on above: Performed By: #### C OMP #### [address] [address] Glucose [Mass/Vol] 105 mg/dL High 70-99 [facility] Comment on above: Performed By: #### C OMP #### [place] [address] Potassium [Moles/Vol] 3.4 mmol/L Normal 3.4-4.8 [facility] Comment on above: Performed By: #### C OMP #### [place] [address] Protein [Mass/Vol] 6.6 g/dL Normal 6.0-8.3 [facility] Comment on above: Performed By: #### C OMP #### [place] [address] Sodium [Moles/Vol] 140 mmol/L Normal 136-145 [facility] Comment on above: Performed By: #### C OMP #### [place] [address] Urea nitrogen [Mass/Vol] 10 mg/dL Normal 7-25 [facility] Comment on above: Performed By: #### C OMP #### [place] [address] Urea nitrogen/Creatinine [Mass ratio] 14.3 mg/mg Normal 10.0-20.0 [facility] Comment on above: Performed By: #### C OMP #### [place] [address] COV19 Rapidon 01-26-2021 Employed in healthcare? No Normal [facility] Comment on above: Performed By: #### C [id number] #### [place] [address] Group care resident? No Normal [facility] Comment on above: Performed By: #### C [id number] #### [place] [address] In ICU? No [facility] Comment on above: Performed By: #### C [id number] #### [place] [address] status? Not [facility] Comment on above: Performed By: #### C [id number] #### [address] [address] Reason for Rapid Test COVID Exposure Normal [facility] Comment on above: Performed By: #### C [id number] #### [address] [address] SARS-CoV-2 (COVID-19) RNA JAYY+probe Ql (Unsp spec) Positive Critically abnormal Negative [facility] Comment on above: Result Comment: Test completion time: 1554 Called date and time: 01/26/2021 15:54:14 EST Result called to and read back by: LINDA SALAS RN, [facility] (First, Last, Title, Location) The 2019 novel [...] using the ID NOW COVID-19 test by [employer], which has received Emergency Use Authorization (EUA) [...] following links: Fact Sheet for HealthCare Providers: https://www.fda.gov/media/069529/download Fact Sheet for Patients: https://www.fda.gov/media/747164/download Performed By: #### C [id number] #### [address] [address] SARS-CoV-2 (COVID-19) RNA JAYY+probe Ql (Unsp spec) No Normal [facility] Comment on above: Performed By: #### C [id number] #### [place] [address] Symptomatic as defined by [facility]? Yes Normal [facility] Comment on above: Performed By: #### C [id number] #### [place] [address] Diff Autoon 01-26-2021 Baso Absolute 0.0 x10*3/mcL Normal 0.0-0.2 [facility] Comment on above: Performed By: #### . Automated Diff #### [place] [address] Basophils/100 WBC (Bld) 0.4 % Normal 0.0-1.5 [facility] Comment on above: Performed By: #### . Automated Diff #### [place] [address] Eos Absolute 0.1 x10*3/mcL Normal 0.0-0.4 [facility] Comment on above: Performed By: #### . Automated Diff #### [place] [address] Eosinophils/100 WBC (Bld) 1.3 % Normal 0.0-5.4 [facility] Comment on above: Performed By: #### . Automated Diff #### [place] [address] Lymph Absolute 1.0 x10*3/mcL Normal 1.0-4.8 [facility] Comment on above: Performed By: #### . Automated Diff #### [place] [address] Lymphocytes/100 WBC (Bld) 19.2 % Low 27.2-40.8 [facility] Comment on above: Performed By: #### . Automated Diff #### [place] [address] Stevens Absolute 0.6 x10*3/mcL Normal 0.1-1.1 [facility] Comment on above: Performed By: #### . Automated Diff #### [place] [address] Monocytes/100 WBC (Bld) 12.4 % High 3.7-11.9 [facility] Comment on above: Performed By: #### . Automated Diff #### [place] [address] Neutro Absolute 3.3 x10*3/mcL Normal 1.8-7.7 [facility] Comment on above: Performed By: #### . Automated Diff #### [place] [address] Neutro Auto 66.7 % Normal 47.2-70.8 [facility] Comment on above: Performed By: #### . Automated Diff #### [place] [address] ED Clinical Summaryon 2020 ED Clinical Summary (Inserted Image. Polina ble to display) [address] [address] ED Clinical Summary Person Information Name: Claudette Hernandes/[facility] Age: 65 Years : 1955 Sex: Female PCP: Nidhi Michaels MD Marital Status: Single Phone: Race: White Ethnicity: Not or Language: Uruguayan Visit Reason: Chest pain; Chest pain - Cardiac Acuity: 3 Enc Type: Emergency Med Service: Emergency Medicine Arrival: 01/26/2021 13:48:22 Discharge: 01/26/2021 17:06:00 LOS: 000 03:18 Checkin: 01/26/2021 13:48:22 Checkout: 01/26/2021 17:06:00 Dispo Type: Home or Self Care Address: [address] [place] [address] Provider Notes: Diagnosis: 1:Pneumonia due to COVID-19 [...] range between ( 27.2 and 40.8 ) Stevens Auto: 12.4 % -- Normal range between [...] range between ( 36.0 and 46.0 ) Stevens Absolute: 0.6 x10 MCH: 30.2 pg -- [...] This Visit Final Med List: New Medications [facility]/pharmacy #[id number], [address], [place] [id number], [phone] hydrocodone-acetaminophen (Clinton 5 mg-325 mg oral tablet) 1 Tabs [...] mouth) 2 times a day. Last Dose: [facility]/pharmacy #[id number], [address], [place] [id number], [phone] hydrocodone-acetaminophen (Clinton 5 mg-325 mg oral tablet) 1 Tabs Oral (given by mouth) every 4 hours as needed for pain for 3 Days. Refills: 0. predniSONE (predniSONE 10 mg oral tablet) 6-5-4-3-2-1. Refills: 0. Other Medications benzonatate (Tessalon Perles) Oral (given by mouth) 3 times a day. sertraline (Zoloft) 100 Milligram Oral (given by mouth) 2 times a day. Care Team Members: Attending Physician: Slick Staton MD Consulting Physician: Referring Physician: Provider Role Assigned Unassigned Chandni (more content not included)... Normal [facility] ED Note-Physicianon 01-27-20 ED Note-Physician Chief [...] tabs, 0 Refill(s), 01/29/21 17:00:00 EST, Pharmacy: [email or web address] #[id number] 2. Acute chest wall pain Ordered: hydrocodone-acetaminophen, 1 tabs, Oral, q4hr, PRN, X 3 days, # 18 tabs, 0 Refill(s), 01/29/21 17:00:00 EST, Pharmacy: [email or web address] #[id number] Orders: predniSONE, See Instructions, 6-5-4-3-2-1, # 21 tabs, 0 Refill(s), [id number] - ED Professional Level 4 Discharge Patient Refresh vitals and sections below: Problem List/Past Medical History Ongoing Depression Hypertension Hypothyroid Historical No qualifying data Procedure/Surgical History Elbow Foot Hysterectomy Neck Medications Inpatient No active inpatient medications Home [place] 5 mg-325 mg oral tablet, 1 tabs, [...] 66.7 Lymph Auto 01/26/21 14:14 19.2 Low Stevens Auto 01/26/21 14:14 12.4 High Eos Auto 01/26/21 14:14 1.3 Basophil Auto 01/26/21 14:14 0.4 Neutro Absolute 01/26/21 14:14 3.3 Lymph Absolute 01/26/21 14:14 1.0 Stevens Absolute 01/26/21 14:14 0.6 Eos Absolute 01/26/21 14:14 0.1 Baso Absolute 01/26/21 14:14 0.0 Routine Chemistry LATEST RESULTS Sodium Lvl 01/26/21 14:14 140 Potassium Lvl 01/26/21 14:14 3.4 Chloride 01/26/21 14:14 105 CO2 01/26/21 14:14 27 Anion Gap 01/26/21 14:14 11 Glucose Lvl 01/26/21 14:14 105 High BUN 01/26/21 14: (more content not included)... Normal [facility] TSH reflex Free T4on 021 TSH reflex Free T4 1.935 mcIU/mL Normal 0.490-4. 67 0 [facility] Comment on above: Performed By: #### L 404.9100, L404.7150, L400.0065 #### Main Laboratory ([facility]) [address] [place] [address] Arnulfo Little MD Vitamin B12on 10-27-2020 Cobalamin (Vitamin B12) [Mass/Vol] 135 pg/mL Low 180-914 [facility] Comment on above: Result Comment: B12 level of 145 - 180 is considered Indeterminate and level of <145 is considered Deficient. Performed By: #### L 404.9100, L404.7150, L400.0065 #### Main Laboratory ([facility]) [address] [place] [address] Arnulfo Little MD Vitamin D,25-hydroxy (Total) on 10-27-2020 25(OH) Vitamin D,Total 28.50 ng/mL Low 30.00-100. 00 [facility] Comment on above: Result Comment: Opti mal values are established by the Clinical Guidelines Subcommittee of the Endocrine Society Task Force. (Journal of Clinical Endocrinology & Metabolism,2011;96) Status Vitamin D Concentration Range ------- Deficient <20 Insufficient 20 - 30 Sufficient 30 - 100 Performed By: #### L 404.9100, L404.7150, L400.0065 #### Main Laboratory ([facility]) [address] [place] [address] Arnulfo Little MD Vitamin D,1,25-Dihydroxyon 0 10-21-2020 Vitamin D,1,25-Dihydroxy 74 pg/mL Normal 18-78 [facility] Comment on above: Result Comment: ---- ADDITIONAL INFORMATION This test was developed and its performance characteristics determined by [facility] in a manner consistent with CLIA requirements. This test has not been cleared or approved by the U.S. Food and Drug Administration. Test Performed by: [facility] [address] [place] [address] Graduating Machine Operator: Rakan Kim M.D. Ph.D.; CLIA# [id number] Performed By: #### L 922.1720 #### [facility] [address] [place] [address] CBC with Differentialon 09-21 Abs Baso Count 0 /cmm Normal 0-200 [facility] Comment on above: Performed By: #### L 100.0000 #### Main Laboratory ([facility]) [address] [place] [address] Arnulfo Little MD Abs Eos Count 100 /cmm Normal 0-500 [facility] Comment on above: Performed By: #### L 100.0000 #### Main Laboratory ([facility]) [address] [place] [address] Arnulfo Little MD Abs Lymph Count 1500 /cmm Normal 8192-1995 [facility] Comment on above: Performed By: #### L 100.0000 #### Main Laboratory ([facility]) [address] [place] [address] Arnulfo Little MD Abs Stevens Count 400 /cmm Normal 0-800 [facility] Comment on above: Performed By: #### L 100.0000 #### Main Laboratory ([facility]) [address] [place] [address] Arnulfo Little MD Abs Neut Count 3900 /cmm Normal 2174-5189 [facility] Comment on above: Performed By: #### L 100.0000 #### Main Laboratory ([facility]) [address] [place] [address] Arnulfo Little MD Basophils/100 WBC (Bld) 0.5 % Normal 0-2 [facility] Comment on above: Performed By: #### L 100.0000 #### Main Laboratory ([facility]) [address], [place] [address] Arnulfo Little MD EOS-Auto Diff 1.5 % Normal 0-6 [facility] Comment on above: Performed By: #### L 100.0000 #### Main Laboratory ([facility]) [address] [place] [address] Arnulfo Little MD Erythrocyte distribution width (RBC) [Ratio] 13.7 % Normal 12.0-16.0 [facility] Comment on above: Performed By: #### L 100.0000 #### Main Laboratory ([facility]) [facility] [place] [address] Arnulfo Little MD Hematocrit (Bld) [Volume fraction] 39.3 % Normal 35.0-44.0 [facility] Comment on above: Performed By: #### L 100.0000 #### Main Laboratory ([facility]) [facility] [address] [place], [place] [address] Arnulfo Little MD Hemoglobin (Bld) [Mass/Vol] 13.7 g/dL Normal 12.0-15.0 [facility] Comment on above: Performed By: #### L 100.0000 #### Main Laboratory ([facility]) [address] [place] [address] Arnulfo Little MD Lymphocytes/100 WBC (Bld) 25.3 % Normal 15-45 [facility] Comment on above: Performed By: #### L 100.0000 #### Main Laboratory ([facility]) [address] [place] [address] Arnulfo Little MD MCH (RBC) [Entitic mass] 30.9 pg Normal 27.5-33.0 [facility] Comment on above: Performed By: #### L 100.0000 #### Main Laboratory ([facility]) [address], [place] [address] Arnulfo Little MD MCHC (RBC) [Mass/Vol] 34.9 g/dL Normal 33.0-36.0 [facility] Comment on above: Performed By: #### L 100.0000 #### Main Laboratory ([facility]) [address] [place], [place] [address] Arnulfo Little MD MCV 88.6 CU JAMES Normal 80-97 [facility] Comment on above: Performed By: #### L 100.0000 #### Main Laboratory ([facility]) [address] [place], [place] [address] Arnulfo Little MD Stevens- Auto Diff 6.8 % Normal 2-10 [facility] Comment on above: Performed By: #### L 100.0000 #### Main Laboratory ([facility]) [address] [place], [place] [address] Arnulfo Little MD Neut-Auto Diff 65.9 % Normal 40-70 [facility] Comment on above: Performed By: #### L 100.0000 #### Main Laboratory ([facility]) [address] [place], [place] [address] Arnulfo Little MD NRBC-Auto 0.1 /100 WBC Normal <1 [facility] Comment on above: Performed By: #### L 100.0000 #### Main Laboratory ([facility]) [address] [place], [place] [address] Arnulfo Little MD Platelet Count 201 th/cmm Normal 150-400 [facility] Comment on above: Performed By: #### L 100.0000 #### Main Laboratory ([facility]) [address] [place], [place] [address] Arnulfo Little MD RBC 4.44 mil/cmm Normal 4.00-5.10 [facility] Comment on above: Performed By: #### L 100.0000 #### Main Laboratory ([facility]) [address] [place] [address] Arnulfo Little MD WBC 5.9 th/cmm Normal 4.4-10.5 [facility] Comment on above: Performed By: #### L 100.0000 #### Main Laboratory ([facility]) [address] [place] [id number] Arnulfo Little MD Comprehensive Metabolic Pane sandeep 10-16-2020 Albumin [Mass/Vol] 3.9 g/dL Normal 3.5-5.0 [facility] Comment on above: Order Comment: Is Pa tient Fasting? Yes Performed By: #### L 400.0076, L400.0400 #### Main Laboratory ([facility]) [address] [place] [address] Arnulfo Little MD Albumin/Globulin [Mass ratio] 1.3 {ratio} Low 1.5-2.5 [facility] Comment on above: Order Comment: Is Pa tient Fasting? Yes Performed By: #### L 400.0076, L400.0400 #### Main Laboratory ([facility]) [address] [place] [address] Arnulfo Little MD Alk Phos 83 IU/L Normal 39-118 [facility] Comment on above: Order Comment: Is Pa tient Fasting? Yes Performed By: #### L 400.0076, L400.0400 #### Main Laboratory ([facility]) [address] [place] [address] Arnulfo Little MD ALT [Catalytic activity/Vol] 16 U/L Normal 10-40 [facility] Comment on above: Order Comment: Is Pa tient Fasting? Yes Performed By: #### L 400.0076, L400.0400 #### Main Laboratory ([facility]) [address] [place] [address] Arnulfo Little MD Anion gap [Moles/Vol] 8 mmol/L Normal 4-12 [facility] Comment on above: Order Comment: Is Pa tient Fasting? Yes Performed By: #### L 400.0076, L400.0400 #### Main Laboratory ([facility]) [address] [place] [address] Arnulfo Little MD AST [Catalytic activity/Vol] 15 U/L Normal 15-41 [facility] Comment on above: Order Comment: Is Pa tient Fasting? Yes Performed By: #### L 400.0076, L400.0400 #### Main Laboratory ([facility]) [address] [place], [facility] Arnulfo Little MD Bili,Total 0.6 mg/dL Normal 0.2-1.0 [facility] Comment on above: Order Comment: Is Pa tient Fasting? Yes Performed By: #### L 400.0076, L400.0400 #### Main Laboratory ([facility]) [address] [place], [facility] Arnulfo Little MD Calcium [Mass/Vol] 9.20 mg/dL Normal 8.8-10.5 [facility] Comment on above: Order Comment: Is Pa tient Fasting? Yes Performed By: #### L 400.0076, L400.0400 #### Main Laboratory ([facility]) [address] [place] [address] Arnulfo Little MD Chloride [Moles/Vol] 105 mmol/L Normal 101-111 [facility] Comment on above: Order Comment: Is Pa tient Fasting? Yes Performed By: #### L 400.0076, L400.0400 #### Main Laboratory ([facility]) [address] [place] [address] Arnulfo Little MD CO2 [Moles/Vol] 29 mmol/L Normal 21-32 [facility] Comment on above: Order Comment: Is Pa tient Fasting? Yes Performed By: #### L 400.0076, L400.0400 #### Main Laboratory ([facility]) [address] [place] [address] Arnulfo Little MD Creatinine [Mass/Vol] 0.85 mg/dL Normal 0.60-1.30 [facility] Comment on above: Order Comment: Is Pa tient Fasting? Yes Performed By: #### L 400.0076, L400.0400 #### Main Laboratory ([facility]) [address] [place] [address] Arnulfo Little MD GFR Calculation > 60 Normal [facility] Comment on above: Order Comment: Is Pa tient Fasting? Yes Result Comment: [place] [employer] marky Kidney Disease stages by NKDF Stage eGFR I >90 II 60-89 III 30-59 IV 15-29 V <15 or dialysis AGE(years) AVERAGE GFR 60-69 85 ml/min/1.73 square meters Note:This result is normalized to 1.73 square meter body surface area. Height and weight are not factored. Performed By: #### L 400.0076, L400.0400 #### Main Laboratory ([facility]) [address] [place] [address] Arnulfo Little MD Glucose [Mass/Vol] 100 mg/dL Normal 70-110 [facility] Comment on above: Order Comment: Is Pa tient Fasting? Yes Result Comment: *Thi s reference range applies to fasting specimens only. Performed By: #### L 400.0076, L400.0400 #### Main Laboratory ([facility]) [address] [place] [address] Arnulfo Little MD Potassium [Moles/Vol] 3.7 mmol/L Normal 3.6-5.0 [facility] Comment on above: Order Comment: Is Pa tient Fasting? Yes Performed By: #### L 400.0076, L400.0400 #### Main Laboratory ([facility]) [address] [place] [address] Arnulfo Little MD Protein [Mass/Vol] 6.8 g/dL Normal 6.2-8.0 [facility] Comment on above: Order Comment: Is Pa tient Fasting? Yes Performed By: #### L 400.0076, L400.0400 #### Main Laboratory ([facility]) [address] [place] [address] Arnulfo Little MD Sodium [Moles/Vol] 142 mmol/L Normal 135-145 [facility] Comment on above: Order Comment: Is Pa tient Fasting? Yes Performed By: #### L 400.0076, L400.0400 #### Main Laboratory ([facility]) [address] [place] [address] Arnulfo Little MD Urea nitrogen [Mass/Vol] 10 mg/dL Normal 7-20 [facility] Comment on above: Order Comment: Is Pa tient Fasting? Yes Performed By: #### L 400.0076, L400.0400 #### Main Laboratory ([facility]) [address] [place] [address] Arnulfo Little MD Lipid Panelon 10-16-2020 Chol/HDL Risk 4.0 Normal 4.0-4.4 [facility] Comment on above: Order Comment: Is Pa tient Fasting? Yes Performed By: #### L 400.0076, L400.0400 #### Main Laboratory ([facility]) [address] [place] [address] Arnulfo Little MD Cholesterol [Mass/Vol] 160 mg/dL Normal <200 [facility] Comment on above: Order Comment: Is Pa tient Fasting? Yes Performed By: #### L 400.0076, L400.0400 #### Main Laboratory ([facility]) [address] [place] [address] Arnulfo Little MD Cholesterol in HDL [Mass/Vol] 40 mg/dL Normal [facility] Comment on above: Order Comment: Is Pa tient Fasting? Yes Result Comment: The National Cholesterol Education Program (NCEP) has set the following guidelines (reference values) for cholesterol, HDL: Low: <40 mg/dL Normal: 40-60 mg/dL High: >60 mg/dL Performed By: #### L 400.0076, L400.0400 #### Main Laboratory ([facility]) [address] [place] [address] Arnulfo Little MD Cholesterol in LDL [Mass/Vol] 104 mg/dL High [facility] Comment on above: Order Comment: Is Pa tient Fasting? Yes Result Comment: The National Cholesterol Education Program (NCEP) has set the following guidelines (reference values) for cholesterol, LDL: Desirable (optimal): <100 mg/dL Low Risk (near optimal): 100-129 mg/dL Borderline high: 130-159 mg/dL High: 160-189 mg/dL Very high: >=190 mg/dL Performed By: #### L 400.0076, L400.0400 #### Main Laboratory ([facility]) [address] [place] [address] Arnulfo Little MD Cholesterol in VLDL [Mass/Vol] 20 mg/dL Normal <39 [facility] Comment on above: Order Comment: Is Pa tient Fasting? Yes Performed By: #### L 400.0076, L400.0400 #### Main Laboratory ([facility]) [address] [place] [address] Arnulfo Little MD dLDL/HDL RISK 2.6 Normal <3.1 [facility] Comment on above: Order Comment: Is Pa tient Fasting? Yes Performed By: #### L 400.0076, L400.0400 #### Main Laboratory ([facility]) [address] [place] [address] Arnulfo Little MD Triglyceride [Mass/Vol] 102 mg/dL Normal <150 [facility] Comment on above: Order Comment: Is Pa tient Fasting? Yes Performed By: #### L 400.0076, L400.0400 #### Main Laboratory ([facility]) [address] [place] [id number] Arnulfo Little MD BASIC METABOLIC PANELon 02-20 Calcium [Mass/Vol] 8.8 mg/dL Normal 8.6-10.3 [facility] Comment on above: Order Comment: No: D o not add to previous draw Performed By: #### 3 5200, 03755, 46453, 38696 #### [facility] [address] [place] [address], [place] Chloride [Moles/Vol] 106 mmol/L Normal 98-107 [facility] Comment on above: Order Comment: No: D o not add to previous draw Performed By: #### 3 5200, 68034, 45927, 87519 #### [facility] [address] [place] [address], [place] CO2 [Moles/Vol] 30 mmol/L Normal 21-31 [facility] Comment on above: Order Comment: No: D o not add to previous draw Performed By: #### 3 5200, 77599, 46352, 87233 #### [facility] [address] [place] [address], [place] Creatinine [Mass/Vol] 0.80 mg/dL Normal 0.60-1.20 [facility] Comment on above: Order Comment: No: D o not add to previous draw Performed By: #### 3 5200, 72686, 98104, 87930 #### [facility] [address] [place] [address], [place] GFR/1.73 sq M predicted among blacks MDRD (S/P/Bld) [Vol rate/Area] mL/min/{1.73_m2} Normal >60 [facility] Comment on above: Order Comment: No: D o not add to previous draw Performed By: #### 3 5200, 24766, 95423, 05434 #### [facility] [address] [place] [address], [place] GFR/1.73 sq M predicted among non-blacks MDRD (S/P/Bld) [Vol rate/Area] mL/min/{1.73_m2} Normal >60 [facility] Comment on above: Order Comment: No: D o not add to previous draw Performed By: #### 3 5200, 95570, 22312, 78028 #### [facility] [address] [place] [address], [place] Glucose [Mass/Vol] 102 mg/dL High 70-100 [facility] Comment on above: Order Comment: No: D o not add to previous draw Performed By: #### 3 5200, 61477, 69397, 74230 #### [facility] [address] [place] [address], [place] Potassium [Moles/Vol] 3.9 mmol/L Normal 3.5-5.1 [facility] Comment on above: Order Comment: No: D o not add to previous draw Performed By: #### 3 5200, 12727, 65746, 66669 #### [facility] [address] [place] [address], [place] Sodium [Moles/Vol] 140 mmol/L Normal 136-145 [facility] Comment on above: Order Comment: No: D o not add to previous draw Performed By: #### 3 5200, 45378, 00451, 37444 #### [facility] [address] [place] [address], [place] Urea nitrogen [Mass/Vol] 12 mg/dL Normal 7-25 [facility] Comment on above: Order Comment: No: D o not add to previous draw Performed By: #### 3 5200, 36680, 60999, 66834 #### [facility] [address] [place] [address], [place] CBC COMPLETE BLOOD COUNTon 0 1- Erythrocyte distribution width (RBC) [Ratio] 13.2 % Normal 11.5-15.0 [facility] Comment on above: Order Comment: No: D o not add to previous draw Performed By: #### 5 0608 #### [facility] [address] [place] [address], [facility] Hematocrit (Bld) [Volume fraction] 38.1 % Normal 36.0-45.0 [facility] Comment on above: Order Comment: No: D o not add to previous draw Performed By: #### 5 0608 #### [facility] [address] [place] [address], [facility] Hemoglobin (Bld) [Mass/Vol] 12.2 g/dL Normal 12.0-15.0 [facility] Comment on above: Order Comment: No: D o not add to previous draw Performed By: #### 5 0608 #### [facility] [address] [place] [id number], [facility] MCH (RBC) [Entitic mass] 29.5 pg Normal 27.0-33.0 [facility] Comment on above: Order Comment: No: D o not add to previous draw Performed By: #### 5 0608 #### [facility] [address] [place] [id number], [facility] MCHC (RBC) [Mass/Vol] 32.0 g/dL Normal 32.0-35.0 [facility] Comment on above: Order Comment: No: D o not add to previous draw Performed By: #### 5 0608 #### [facility] [address] [place] [address], [facility] MCV (RBC) [Entitic vol] 92.0 fL Normal 82.0-98.0 [facility] Comment on above: Order Comment: No: D o not add to previous draw Performed By: #### 5 0608 #### [facility] [address] [place] [id number], [facility] Nucleated RBC/100 WBC (Bld) [Ratio] 0 % Normal 0-0 [facility] Comment on above: Order Comment: No: D o not add to previous draw Performed By: #### 5 0608 #### [facility] [address] [place] [address], [facility] PLAT CNT 159 10*3/uL Normal 150-400 [facility] Comment on above: Order Comment: No: D o not add to previous draw Performed By: #### 5 0608 #### [facility] [address] [place] [address], [facility] RBC (Bld) [#/Vol] 4.14 10*6/uL Normal 3.80-5.00 [facility] Comment on above: Order Comment: No: D o not add to previous draw Performed By: #### 5 0608 #### [facility] [address] [address], [facility] WBC (Bld) [#/Vol] 6.23 10*3/uL Normal 4.00-10.60 [facility] Comment on above: Order Comment: No: D o not add to previous draw Performed By: #### 5 0608 #### [facility] [address] [place] [address], [facility] LIPID PROFILEon 03-06-2019 Cholesterol [Mass/Vol] 151 mg/dL Normal 120-200 [facility] Comment on above: Order Comment: No: D o not add to previous draw Result Comment: CHOL ESTEROL REFERENCE RANGE: 20 YEARS AND OLDER CARDIOVASCULAR RISK Less than 200 mg/dl Low Risk 200 to 239 mg/dl Borderline Risk 240 mg/dl and greater High Risk Performed By: #### 4 6413, 84484 #### [facility] [address] [place] [address], [facility] Cholesterol in HDL [Mass/Vol] 39 mg/dL Normal 23-92 [facility] Comment on above: Order Comment: No: D o not add to previous draw Result Comment: Slig ht variation in normal range could be due to gender and/or age. HDL CHOLESTEROL REFERENCE RANGE: 20 years and older Cardiovascular Risk > or =60 mg/dL Desirable 40 TO 59 mg/dL Low Risk <40 mg/dL High Risk Performed By: #### 4 6413, 20049 #### [facility] [address] [place] [address], [facility] Cholesterol in LDL [Mass/Vol] 90 mg/dL Normal 0-130 [facility] Comment on above: Order Comment: No: D o not add to previous draw Result Comment: LDL IS A CALCULATION LDL IS ONLY VALID IF THE TRIG IS LESS THAN 400. Performed By: #### 4 6413, 89852 #### [facility] [address] [place] [address], [facility] Cholesterol.total/Cho lesterol in HDL [Mass ratio] 3.9 {ratio} Normal 0.0-4.5 [facility] Comment on above: Order Comment: No: D o not add to previous draw Performed By: #### 4 61, 15440 #### [facility] [address] [place] [address], [facility] NON-HDL CHOLESTEROL 112 mg/dL Normal [facility] Comment on above: Order Comment: No: D o not add to previous draw Performed By: #### 4 6013, 44739 #### [facility] [address] [place] [address], [facility] Triglyceride [Mass/Vol] 110 mg/dL Normal 40-149 [facility] Comment on above: Order Comment: No: D o not add to previous draw Result Comment: TRIG LYCERIDE REFERENCE RANGE: 20 YEARS AND OLDER CARDIOVASCULAR RISK LESS THAN 150 mg/dl LOW RISK 150 TO 199 mg/dl BORDERLINE RISK 200 mg/dl AND GREATER HIGH RISK Performed By: #### 4 1613, 20743 #### [facility] [address] [place] [address], [facility] VLDL CHOL 22 mg/dL Normal 0-40 [facility] Comment on above: Order Comment: No: D o not add to previous draw Performed By: #### 4 2313, 02125 #### [facility] [facility] [address] [place] [address], [facility] BASIC METABOLIC PANELon 02-20 Calcium [Mass/Vol] 8.8 mg/dL Normal 8.6-10.3 [facility] Comment on above: Order Comment: No: D o not add to previous draw Performed By: #### 3 5200, 18504, 01834, 30554 #### [facility] [address] [place] [address], [place] Chloride [Moles/Vol] 107 mmol/L Normal 98-107 [facility] Comment on above: Order Comment: No: D o not add to previous draw Performed By: #### 3 5200, 86454, 90716, 14930 #### [facility] [address] [place] [address], [place] CO2 [Moles/Vol] 26 mmol/L Normal 21-31 [facility] Comment on above: Order Comment: No: D o not add to previous draw Performed By: #### 3 5200, 08787, 23943, 90364 #### [facility] [address] [place] [address], [place] Creatinine [Mass/Vol] 0.87 mg/dL Normal 0.60-1.20 [facility] Comment on above: Order Comment: No: D o not add to previous draw Performed By: #### 3 5200, 90710, 50186, 82434 #### [facility] [address] [place] [address], [place] GFR/1.73 sq M predicted among blacks MDRD (S/P/Bld) [Vol rate/Area] mL/min/{1.73_m2} Normal >60 [facility] Comment on above: Order Comment: No: D o not add to previous draw Performed By: #### 3 5200, 08606, 75229, 41457 #### [facility] [address] [place] [address], [place] GFR/1.73 sq M predicted among non-blacks MDRD (S/P/Bld) [Vol rate/Area] mL/min/{1.73_m2} Normal >60 [facility] Comment on above: Order Comment: No: D o not add to previous draw Performed By: #### 3 5200, 28288, 90667, 08217 #### [facility] [address] [place] [address], [place] Glucose [Mass/Vol] 118 mg/dL High 70-100 [facility] Comment on above: Order Comment: No: D o not add to previous draw Performed By: #### 3 5200, 08133, 63319, 66781 #### [facility] [address] [place] [address], [place] Potassium [Moles/Vol] 4.0 mmol/L Normal 3.5-5.1 [facility] Comment on above: Order Comment: No: D o not add to previous draw Performed By: #### 3 5200, 79890, 55034, 97926 #### [facility] [address] [place] [address], [place] Sodium [Moles/Vol] 140 mmol/L Normal 136-145 [facility] Comment on above: Order Comment: No: D o not add to previous draw Performed By: #### 3 5200, 76726, 38938, 42426 #### [facility] [address] [place] [address], [place] Urea nitrogen [Mass/Vol] 13 mg/dL Normal 7-25 [facility] Comment on above: Order Comment: No: D o not add to previous draw Performed By: #### 3 5200, 04891, 64597, 10151 #### [facility] [address] [place] [address], [place] CBC COMPLETE BLOOD COUNTon 0 1-14 Erythrocyte distribution width (RBC) [Ratio] 13.1 % Normal 11.5-15.0 [facility] Comment on above: Order Comment: No: D o not add to previous draw Performed By: #### 5 0608 #### [facility] [address] [place] [address], [facility] Hematocrit (Bld) [Volume fraction] 36.8 % Normal 36.0-45.0 [facility] Comment on above: Order Comment: No: D o not add to previous draw Performed By: #### 5 0608 #### [facility] [address] [place] [address], [facility] Hemoglobin (Bld) [Mass/Vol] 12.1 g/dL Normal 12.0-15.0 [facility] Comment on above: Order Comment: No: D o not add to previous draw Performed By: #### 5 0608 #### [facility] [address] [place] [address], [facility] MCH (RBC) [Entitic mass] 29.3 pg Normal 27.0-33.0 [facility] Comment on above: Order Comment: No: D o not add to previous draw Performed By: #### 5 0608 #### [facility] [address] [facility] [place] [address], [facility] MCHC (RBC) [Mass/Vol] 32.9 g/dL Normal 32.0-35.0 [facility] Comment on above: Order Comment: No: D o not add to previous draw Performed By: #### 5 0608 #### [facility] [address] [place] [address], [facility] MCV (RBC) [Entitic vol] 89.1 fL Normal 82.0-98.0 [facility] Comment on above: Order Comment: No: D o not add to previous draw Performed By: #### 5 0608 #### [facility] [address] [place] [address], [facility] Nucleated RBC/100 WBC (Bld) [Ratio] 0 % Normal 0-0 [facility] Comment on above: Order Comment: No: D o not add to previous draw Performed By: #### 5 0608 #### [facility] [address] PLAT CNT 164 10*3/uL Normal 150-400 [facility] Comment on above: Order Comment: No: D o not add to previous draw Performed By: #### 5 0608 #### [facility] [address] RBC (Bld) [#/Vol] 4.13 10*6/uL Normal 3.80-5.00 [facility] Comment on above: Order Comment: No: D o not add to previous draw Performed By: #### 5 0608 #### [facility] [address] [facility] [place] [address], [facility] WBC (Bld) [#/Vol] 6.30 10*3/uL Normal 4.00-10.60 [facility] Comment on above: Order Comment: No: D o not add to previous draw Performed By: #### 5 0608 #### [facility] [address] History and Physicalon 03-05 History and Physical MR#: [id number] [facility] Pt. Name: Claudette Hernandes Admitted: 03/05/2019 Date of : 1955 Attending Physician: Nitin Gonzalez MD Room #: 3AB 486162 Discharge Date: HISTORY AND PHYSICAL CHIEF COMPLAINT: Chest pain. HISTORY OF PRESENT ILLNESS: This is a 63-year-old female with past medical history significant for hypertension, dyslipidemia, hypothyroidism. 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 She reports that she was sitting on her chair when the episode started. It was 10/10 in intensity, associated with shortness of breath for which she called the EMS who gave her nitroglycerin sublingual, which helped a bit and then she was transferred to [facility]. In [facility], an EKG was done, which was showing no significant changes. Troponin was done, which was negative. The patient was started on nitroglycerin drip. She also had a CT angiogram of the chest, which was negative for pulmonary embolism, but it was positive for a pulmonary nodule and the patient was transferred to [facility] for further evaluation. The patient reports that she still does have 6/10 substernal chest pain but with no shortness of breath at this time. She still feels the pain in her neck. She reports that she never had those episodes recently, but remotely she had similar episodes, but she did not see a motor setter. She reports that she is compliant with her medication, but she does not recall exactly what medication she takes. PAST MEDICAL HISTORY: Include hypertension, dyslipidemia, hypothyroidism. SOCIAL HISTORY: She reports no history of tobacco use. No use of alcohol. MEDICATIONS: At home from the list from [facility] include Singulair 10 mg per oral daily, [...] Alert and oriented x3. LABORATORY DATA: From [facility] showing hemoglobin of 13, platelets 182, white [...] Gonzalez MD Date Trans: 03/05/2019 10:44 A/drew DN_[id number] Normal [facility] MAGNESIUM BLOODon 03-05-2019 Magnesium [Mass/Vol] 2.2 mg/dL Normal 1.9-2.7 [facility] Comment on above: Order Comment: No: D o not add to previous draw Performed By: #### 3 5200, 26200, 01106, 48307 #### [facility] [address] [address], [facility] TROPONIN-Ion 03-05-2019 Troponin I.cardiac [Mass/Vol] 0.01 ng/mL Normal 0.00-0.04 [facility] Comment on above: Order Comment: No: D o not add to previous draw Result Comment: REFE RENCE RANGES: 0.00 - 0.04 ng/ml NORMAL 0.05 - 0.50 ng/ml INDETERMINATE > 0.50 ng/ml CONSISTENT WITH AN M.I. Performed By: #### 3 5200 #### [facility] [address] [place] Troponin I.cardiac [Mass/Vol] 0.00 ng/mL Normal 0.00-0.04 [facility] Comment on above: Order Comment: No: D o not add to previous draw Result Comment: REFE RENCE RANGES: 0.00 - 0.14 ng/ml NEGATIVE 0.15 - 0.25 ng/ml INDETERMINATE > 0.25 ng/ml INDICATIVE OF AN M.I. Performed By: #### 3 5200 #### [facility] [address] Troponin I.cardiac [Mass/Vol] 0.00 ng/mL Normal 0.00-0.04 [facility] Comment on above: Order Comment: No: D o not add to previous draw Result Comment: REFE RENCE RANGES: 0.00 - 0.14 ng/ml NEGATIVE 0.15 - 0.25 ng/ml INDETERMINATE > 0.25 ng/ml INDICATIVE OF AN M.I. Performed By: #### 3 5200, 84565, 08156, 15357 #### [facility] [address] [facility] TSH3 WITH REFLEXon 0 TSH 3RD GENERATION 2.38 uIU/mL Normal 0.34-5.60 [facility] Comment on above: Performed By: #### 3 5200, 10965, 00649, 86374 #### [facility] [address] [facility] Intraoperative Noteon 2017 Intraoperative Note [id number]#1.00[facility] [id number]#1.00[facility] History and Physicalon 02-22 History and Physical [id number]#1.00[facility] Provider Orderson 02-22-2017 Provider Orders [id number]#1.00OTGTIFF [facility] Coding Summaryon 01-18-2017 Coding Summary CODING DATE: 017 [facility] STATUS: Home PAYOR: Medicare APC DESCRIPTION 5431 Level 1 Nerve Procedures ADMIT DX: REASON FOR VISIT DX: G56.02 Carpal tunnel syndrome, left upper limb FINAL DX: PRINCIPAL: G56.02 Carpal tunnel syndrome, left upper limb SECONDARY: E78.5 Hyperlipidemia, unspecified I10 Essential (primary) hypertension E03.9 Hypothyroidism, unspecified Z72.0 Tobacco use PYMT PROC APC STAT DESCRIPTION DOCTOR NAME DATE 42796 543 J1 Neuroplasty and/or Conrado Mccoy And [...] Rossana Swan Date Saved: 01/18/2017 07:38 am [facility] Consent Formson 01-17-2017 Consent Forms [id number]#1.00OTGTIFF [facility] Anesthesia Noteon 01-16-2017 [facility] Patient: Kolby HERNANDES : 61 years Sex: FEMALE : [birth year]Associated Diagnoses: NoneAuthor: Rakan Hernandez MDPostoperative InformationAnesthetic utilized: Monitored anesthesia care.AssessmentAnesthetic outcomeNo anesthetic complications noted.PlanTransfer/ Discharge: Patient can be discharged from PACU when criteria met.Condition good.[Electronically Signed on: 01/16/2017 14:17 EST] Rakan Hernandez MD[Verified on: 01/16/2017 14:17 EST] Rakan Hernandez MD [facility] Anesthesia Note Patient: Kolby HERNANDES : 61 [...] 50 mg = 1 tab(s), PRN, PO, l8lrBmmhtcy list (past medical history):All ProblemsHypothyroidism / SNOMED CT 99542964 / ConfirmedCanceled: No Chronic Problems / Cerner NKPHistoriesFamily History:No family history items have been selected or recorded.Procedure history:Carpal tunnel decompression ([id number]) on 12/12/2016 at 61 Years.Cholecystectomy (34080645).Hysterectomy and bilateral salpingo-oophorectomy sample (176446637).Fracture (870227942).Comments: 017 08:10 - Vandana Onofre wristDisc (4879641157).Comments:2016 08:11 - Vandana Onofre elvira and screwsSpur of ankle bone ([id number]).Comments:1 08:12 - Warga, Vandana RNleft footRotator cuff repair (680774519).Comments: 017 08:12 - Vandana Onofre RNrightSocial History Alcohol Assessment Use: Never. Tobacco Assessment Never (less than 100 in lifetime) Tobacco Use:..Social & Psychosocial YmxqiaDbkstmj76/20/2017 Alcohol Use: YuvvfFbnrzdq31/20/2017 Smoking tobacco use: Never (less than 100 [...] 01/16/2017 12:52 EST] Rakan Hernandez MD Normal [facility] Inpatient Clinical Summaryon 01-16-2017 Inpatient Clinical Summary [facility] SURGERYClinical Discharge SummaryPERSON INFORMATIONName CLAUDETTE HERNANDES Age 61 Years 09/[birth year]/Sex FEMALE Language Uruguayan PCP Provider, UnlistedMarital Status [id number] Acct# Arrival 01/16/17 09:25:18Visit Reason LEFT CARPAL TUNNEL RELEASE Acuity LOS 010 23:07Address:[address] [facility] [address]Gjoygno:PROVIDER INFORMATIONVITALS INFORMATIONVital Sign Triage LatestTemp OralTemp TemporalTemp IntravascularTemp AxillaryTemp Oxrmsz14 Sat 96 % 95 %Respiratory Rate 16 [...] EDUCATION INFORMATIONInstructions:Juan gonzales- Post Op Carpal Tunnel ([facility])Follow up:With: Address: When:Conrado Mccoy [address] [facility], [place], [phone] Business (2)Comments:Call for follow up appointmentWith: Address: When:Unlisted ProviderDIAGNOSISCarpal tunnel syndrome on leftComment:PHYS DOC NOTES Normal [facility] Inpatient Patient Summaryon 01-16-2017 Inpatient Patient Summary [address] [id number] patient Discharge InstructionsName: CLAUDETTE HERNANDES ADOB: [birth year] Address: [address] [place] [address] [address] [place] [id number] Care Provider:Name: Provider, UnlistedPhone:After you are discharged if you find you have any questions, please, call [phone] ext [phone] to speak to a nurse.Discharge [...] or business decisions or sign any legal documentsFirelands Regional Medical Center South Campus would like to thank you for allowing us to assist you with your healthcare needs. The following includes patient education materials and information regarding your injury/illness.CLAUDETTE HERNANDES has been given the following list of follow-up instructions, prescriptions, and patient education materials:Follow-up InstructionsWith: Address: When:Conrado Mccoy [address] [place] [address], [address] [place], [phone] Business (2)Comments:Call for follow up appointmentWith: Address: [...] while awake-DO NOT lift heavy objects or reactor fueling supervisor forcefully with your hand-Change your dressing in [...] or concerns, please call the office at [phone]-Follow up as scheduledViruses or BacteriaWhat?s got you [...] Aren?t Always the Answerwww.cdc.gov/getsmart GETSMARTKnow When Antibiotics Beti.[place] Department of Health and Human ServicesMetrohealth Main Campus Medical Centerers for Disease Control and Prevention October 2013 [facility]R Intraoperative Recordon 01-16-2017 [facility] Intraoperative Record [facility] Intra-Op Record Summary Primary Physician: Conrado Mccoy DO Finalized Date/Time: 01/16/17 15:01:02 Pt. Name: CLAUDETTE HERNANDES Esmer Adrian/Sex: 1955 FEMALE Med Rec #: [id number] Physician: Conrado Mccoy DO Financial #: [id number] Pt. Type: D Room/Bed: / Admit/Disch: 01/16/17 [...] Role Performed Surgeon - Primary Anesthesiologist of Framing Mill Operator Helper Record Time In 01/16/17 13:11:00 01/16/17 13:11:00 01/16/17 13:11:00 Time Out 01/16/17 13:44:00 01/16/17 13:44:00 01/16/17 13:44:00 Procedure Carpal Tunnel Carpal Tunnel Carpal Tunnel Release(Left) Release(Left) Release(Left) Last Modified By: Caroline Montgomery RN, Stephanie RN Sauer, Stephanie RN 01/16/17 14:29:30 01/16/17 14:29:30 01/16/17 14:29:30 Entry 4 Entry 5 Case Attendee Paul Alas Linda M Regina CST Role Performed Scrub Personnel Wood Turner Time In 01/16/17 13:11:00 01/16/17 13:11:00 Time Out 01/16/17 13:44:00 01/16/17 13:44:00 Procedure Carpal Tunnel Carpal Tunnel Release(Left) Release(Left) Last Modified By: Caroline Montgomery RN, Stephanie RN 01/16/17 14:29:30 01/16/17 14:29:30 Surgical Procedures MAG[facility] Pre-Care Text: A.20 Verifies operative procedure, surgical site, and laterality Im.150 Develops individualized plan of care Entry 1 Procedure Carpal Tunnel Release Primary Procedure Yes Primary Surgeon Conrado Mccoy DO Surgeon Comment LEFT CARPAL TUNNEL Start [...] the Initial Count Performed By Terri Alas FINISHING WIRE SAWYER Initial Count Time 01/16/17 13:10:00 Counts Verification Final Counts Items Included in Sponges, Sharps Final Count Status Correct Final Count Final Counts Caroline Montgomery RN, Final Count Time 01/16/17 13:35:00 Performed By Terri Alas FINISHING WIRE SAWYER Surgeon notified of Yes final counts status [...] Unfinalizing Freetext Reason for Unfinalizing 01/16/17 15:00 [facility]ation [facility] Record Summary Primary Physician: Conrado Mccoy DO Finalized Date/Time: 01/16/17 15:27:42 Pt. Name: CLAUDETTE HERNANDES./Sex: 1955 FEMALE Med Rec #: [id number] Physician: Conrado Mccoy DO Financial #: [id number] Pt. Type: D Room/Bed: / Admit/Disch: 01/16/17 [...] Signed By: Susu Stern RN 01/16/17 15:27 [facility] 03-18-2016 [facility] Preoperative Record [facility] Pre-Op Record Summary Primary Physician: Conrdao Mccoy DO Finalized Date/Time: 01/16/17 13:05:28 Pt. Name: CLAUDETTE HERNANDES Esmer DavisB./Sex: 1955 FEMALE Med Rec #: [id number] Physician: Conrado Mccoy DO Financial #: [id number] Pt. Type: D Room/Bed: / Admit/Disch: 01/16/17 [...] Signed By: Susu Stern RN 01/16/17 13:05 [facility] Operative Report - Surgeon/P corey 01-16-2017 Operative [...] on: 01/16/2017 13:32 EST] Conrado Mccoy DO [facility] MAGR Intraoperative Recordon 01-10-2017 [facility] Intraoperative Record [facility] Intra-Op Record Summary Primary Physician: Conrado Mccoy DO Finalized Date/Time: 01/10/17 10:13:17 Pt. Name: CLAUDETTE HERNANDES/Sex: 1955 FEMALE Med Rec #: [id number] Physician: Conrado Mccoy DO Financial #: [id number] Pt. Type: D Room/Bed: / Admit/Disch: 12/12/16 [...] Role Performed Surgeon - Primary Anesthesiologist of Framing Mill Operator Helper Record Time In 12/12/16 16:52:00 12/12/16 16:52:00 12/12/16 16:52:00 Time Out 12/12/16 17:25:00 12/12/16 17:25:00 12/12/16 17:25:00 Procedure Carpal Tunnel Carpal Tunnel Carpal Tunnel Release(Right) Release(Right) Release(Right) Last Modified By: Bina Limon RN, Barbara RN Long, Barbara RN 12/12/16 17:25:48 12/12/16 17:25:48 12/12/16 17:25:48 Entry 4 Entry 5 Case Attendee Chelsie Marcum CST, Leigh-Ann CST Role Performed Scrub Personnel Wood Turner Time In 12/12/16 16:52:00 12/12/16 16:52:00 Time Out 12/12/16 17:25:00 12/12/16 17:25:00 Procedure Carpal Tunnel Carpal Tunnel Release(Right) Release(Right) Last Modified By: Bina Limon RN, Barbara RN 12/12/16 17:25:48 12/12/16 17:25:48 Surgical Procedures [facility] Pre-Care Text: A.20 Verifies operative procedure, surgical site, and laterality Im.150 Develops individualized plan of care Entry 1 Procedure Carpal Tunnel Release Primary Procedure Yes Primary Surgeon Conrado Mccoy Right Henri DO Surgeon Comment RELEASE RIGHT CARPAL Start 12/12/16 17:10:00 TUNNEL Stop 12/12/16 17:23:00 Anesthesia Type [facility] Surgical Service Orthopedics Wound [...] Bear, the Initial Count Performed By Chelsie FINISHING WIRE SAWYER Initial Count Time 12/12/16 17:00:00 Counts Verification Final Counts Items Included in Sponges, Sharps Final Count Method Manual Final Count Final Count Status Correct Final Counts Bina Limon RN, Bear, Performed By [employer] FINISHING WIRE SAWYER Final Count Time 12/12/16 17:14:00 Surgeon notified [...] Conrado Mccoy Outcome Met (O.60) Yes Henri DO Last Modified By: Bina Limon RN 12/12/16 [...] List 01/10/17 10:12 MHBLONG Modify Pick List Normal [facility] Preoperative Recordon 1 02-22-2016 [facility] Preoperative Record [facility] Pre-Op Record Summary Primary Physician: Conrado Mccoy DO Finalized Date/Time: 12/22/16 13:33:53 Pt. Name: CLAUDETTE HERNANDES /Sex: 1955 FEMALE Med Rec #: [id number] Physician: Conrado Mccoy DO Financial #: [id number] Pt. Type: D Room/Bed: / Admit/Disch: 12/12/16 [...] consent correct. General Comments: arrives ambulatory to [facility], denies recent cp, sob, new illnesses, pacemaker, defibrillator or sleep apnea Finalized By: Susu Stern RN Document Signatures Signed By: Susu Stern RN 12/22/16 13:33 [facility] Coding Summaryon 12-15-2016 Coding Summary CODING DATE: 017 [facility] STATUS: Home PAYOR: Medicare APC DESCRIPTION 5733 [...] Linda Jenkins Date Saved: 12/15/2016 04:40 pm [facility] Coding Summary CODING DATE: 017 [facility] STATUS: Home PAYOR: Medicare APC DESCRIPTION 5431 Level 1 Nerve Procedures ADMIT DX: REASON FOR VISIT DX: G56.01 Carpal tunnel syndrome, right upper limb FINAL DX: PRINCIPAL: G56.01 Carpal tunnel syndrome, right upper limb SECONDARY: PYMT PROC APC STAT DESCRIPTION DOCTOR NAME DATE 89987 5431 J1 Neuroplasty and/or Conrado Mccoy And 12/12/2016 [...] Rachel Zafar Date Saved: 12/15/2016 01:30 pm [facility] Consent Formson 12-13-2016 Consent Forms [id number]#1.00[facility] History and Physicalon 12-13 History and Physical [id number]#1.00[facility] Provider Orderson 12-13-2016 Provider Orders [id number]#1.00[facility] Anesthesia Noteon 12-12-2016 Anesthesia Note Patient: Kolby HERNANDES : 61 years Sex: FEMALE : [birth year]Associated Diagnoses: NoneAuthor: Theodore Guevara MDPostoperative InformationPost Operative Note: Operative Day.Anesthetic utilized: Monitored anesthesia care.Health StatusAllergies:Allergic Reactions (All)Severity Not DocumentedCodeine- Rash.Percocet 5/325- Rash.Vicodin- Rash.Problem list (past medical history):All ProblemsHypothyroidism / SNOMED CT 01634240 / ConfirmedCanceled: No Chronic Problems / Cerner [...] on: 12/12/2016 17:31 EDT] Theodore Guevara MD [facility] Anesthesia Note Patient: Kolby HERNANDES : 61 [...] (past medical history):All ProblemsHypothyroidism / SNOMED CT 39946799 / ConfirmedCanceled: No Chronic Problems / Cerner NKPAsthma, mildHistoriesFamily History:No family history items have been selected or recorded.Procedure history:Cholecystectomy (10635564).Hysterectomy and bilateral salpingo-oophorectomy sample (575785431).Fracture (357040305).Comments: 08:10 - Vandana Onofre wristDisc ([id number]).Comments:2016 08:11 - Vandana Onofre elvira and screwsSpur of ankle bone ([id number]).Comments:1 08:12 - Vandana Onofre footRotator cuff repair ([id number]).Comments: 08:12 - Vandana Onofre RNrightSocial History Alcohol Assessment Use: Never. Tobacco Assessment Never (less than 100 in lifetime) Tobacco Use:..Social & Psychosocial JerpijBqfoarn84/20/2017 Alcohol Use: JzygiYnvkizz81/20/2017 Smoking tobacco use: Never (less than 100 [...] 12/12/2016 14:32 EDT] Theodore Guevara MD Normal [facility] Inpatient Clinical Summaryon 12-12-2016 Inpatient Clinical Summary [facility] SURGERYClinical Discharge SummaryPERSON INFORMATIONName CLAUDETTE HERNANDES Age 61 Years [birth year]Sex FEMALE Language Uruguayan PCP Provider, UnlistedMarital Status [facility] 15-74-43 Acct# Arrival 12/12/16 12:05:33Visit Reason SURGERY - RELEASE RIGHT CARPAL TUNNEL [facility] [place] 005 08:24Address:[address] [facility] [address]Iovmrbv:PROVIDER INFORMATIONVITALS INFORMATIONVital Sign Triage LatestTemp OralTemp TemporalTemp IntravascularTemp AxillaryTemp Aikdqz73 Sat 96 % 96 %Respiratory Rate 16 [...] Activity Level:Patient Diet:RegularPatient Activity Restrictions:DISCHARGE INFORMATIONDischarge Disposition:Discharge Location:DEPART REASON INCOMPLETE INFORMATIONPATIENT EDUCATION INFORMATIONInstructions:Juan gonzales- Post Op Car[facility] T[facility]Follow up:With: Address: When:Conrado Mccoy [address] [place] [address] Business (2)With: Address: When:Unlisted ProviderDIAGNOSISRight carpal tunnel syndromeComment:PHYS DOC NOTES Normal [facility] Inpatient Patient Summaryon 12-12-2016 Inpatient Patient Summary [place] [id number] patient Discharge InstructionsName: CLAUDETTE HERNANDES ADOB: [birth year] Address: [address] [place] [address] Care Provider:Name: Provider, UnlistedPhone:Discharge Diagnosis: Right carpal tunnel syndromeIf you received any narcotics, sedation, or any other medication that causes drowsiness for the next 24 hours, unless otherwise directed:? Do not drive a car.? Do not operate machinery such as power [employer], [employer], drills, sewing machines, or stoves? Avoid alcoholic beverages and drugs for allergies, nerves, or sleep? Do not make important personal or business decisions or sign any legal documentsFirelands [facility] would like to thank you for allowing us to assist you with your healthcare needs. The following includes patient education materials and information regarding your injury/illness.CLAUDETTE HERNANDES has been given the following list of follow-up instructions, prescriptions, and patient education materials:Follow-up InstructionsWith: Address: When:Conrado Mccoy [address] [place] [address], [address] [place], [phone] Business (2)With: Address: When:Unlisted ProviderMedicationsDuring the course [...] while awake-DO NOT lift heavy objects or reactor fueling supervisor forcefully with your hand-Change your dressing in [...] or concerns, please call the office at [phone]-Follow up as scheduled Viruses or BacteriaWhat?s got [...] for Disease Control and Prevention October 2013 [facility] MAGR Phase II Record Summary Primary Physician: Conrado Mccoy DO Finalized Date/Time: 12/12/16 18:18:35 Pt. Name: CLAUDETTE HERNANDES/Sex: 1955 FEMALE Med Rec #: [id number] Physician: Conrado Mccoy DO Financial #: [id number] Pt. Type: D Room/Bed: / Admit/Disch: 12/12/16 [...] By: Bina Limon RN 12/12/16 18:18 Normal [facility] Operative Report - Surgeon/P corey 12-12-2016 Operative [...] on: 12/12/2016 17:29 EDT] Conrado Mccoy DO Normal [facility] .Auto Diff 1on 12-09-2016 Auto Baso % 0.3 % Normal 0.2-2.0 [facility] Comment on above: Performed By: #### 7 [id number], [id number], [id number] ####[facility] (DEFAULT)[address] [place] [address] Auto Stevens % 10 % Normal 1-12 [facility] Comment on above: Performed By: #### 7 [id number], [id number], [id number] ####[facility] (DEFAULT)[address] [place] [address] Auto Neut % 63 % Normal 44-88 [facility] Comment on above: Performed By: #### 7 142335, [id number], [id number] ####[facility] (DEFAULT)[address] [place] [address] Baso Abs# 0.0 x10 Normal 0.0-0.2 [facility] Comment on above: Performed By: #### 7 [id number], [id number], [id number] ####[facility] (DEFAULT)[address] [place] [address] Eos Abs# 0.1 x10 Normal 0.0-0.4 [facility] Comment on above: Performed By: #### 7 811458, [id number], [id number] ####[facility] (DEFAULT)[address] [place] [address] Eosinophils/100 leukocytes 1.5 % Normal 0.9-4.0 [facility] Comment on above: Performed By: #### 7 626029, [id number], [id number] ####[facility] (DEFAULT)[address] [place] [address] Lymphocytes 1.5 x10 Normal 1.3-2.9 [facility] Comment on above: Performed By: #### 7 392155, [id number], [id number] ####[facility] (DEFAULT)[address] [place] [address] Lymphocytes/100 leukocytes 25 % Normal 14-48 [facility] Comment on above: Performed By: #### 7 677334, [id number], [id number] ####[facility] (DEFAULT)[address] [place] [address] 97651 Stevens Abs# 0.6 x10 Normal 0.0-0.8 [facility] Comment on above: Performed By: #### 7 916493, [id number], [id number] ####[facility] (DEFAULT)[address] [place] [address] 90282 Neut Abs# 3.8 x10 Normal 1.5-9.2 [facility] Comment on above: Performed By: #### 7 628979, [id number], [id number] ####[facility] (DEFAULT)[address] [place] [address] 74276 BMP Standardon 12-09-2016 eGFR (non-black) mL/min/{1.73_m2} Invalid Interpretation Code [facility] Comment on above: Performed By: #### 7 124603, [id number], [id number] ####[facility] (DEFAULT)[address] [place] [address] 01368 eGFR (non-black) mL/min/{1.73_m2} Invalid Interpretation Code [facility] Comment on above: Result Comment: Waxer Floor marky Kidney disease could be indicated at eGFRs of less than 60 ml/min/1.73m2. Kidney Failure is indicated at less than 15 ml/min/1.73m2 Performed By: #### 7 296336, [id number], [id number] ####[facility] (DEFAULT)[address] [place] [address]2745 Anion gap 11.0 mmol/L Normal 5.0-19.0 [facility] Comment on above: Performed By: #### 7 019786, [id number], [id number] ####[facility] (DEFAULT)[address] [place] [address]32 BUN/Creatinine Ratio 12.0 mg/mg Normal 4.6-16.2 [facility] Comment on above: Performed By: #### 7 503216, [id number], [id number] ####[facility] (DEFAULT)[address] [place] [address] 27444 Calcium 9.1 mg/dL Normal 8.9-10.3 [facility] Comment on above: Performed By: #### 7 047600, [id number], [id number] ####[facility] (DEFAULT)[address] [place] [address] 47517 Chloride 104 mmol/L Normal 101-111 [facility] Comment on above: Performed By: #### 7 213358, 60164531, [id number] ####[facility] (DEFAULT)[address] [place] [address] 08641 CO2 26 mmol/L Normal 21-32 [facility] Comment on above: Performed By: #### 7 509566, [id number], [id number] ####[facility] (DEFAULT)[address] [place] [address] 97102 Creatinine 0.86 mg/dL Normal 0.60-1.30 [facility] Comment on above: Performed By: #### 7 818027, [id number], [id number] ####[facility] (DEFAULT)[address] [place] [address] Glucose mass conc 112.0 mg/dL Normal 74.0-118.0 [facility] Comment on above: Performed By: #### 7 472518, 90692969, [id number] ####[facility] (DEFAULT)[address] [place] [address] Osmolality 274 mOsm/L Invalid Interpretation Code [facility] Comment on above: Performed By: #### 7 936507, [id number], [id number] ####[facility] (DEFAULT)[address] [place] [address] Potassium molar conc 3.8 mmol/L Normal 3.6-5.1 [facility] Comment on above: Performed By: #### 7 403931, 24719527, [id number] ####[facility] (DEFAULT)[address] [place] [address] Sodium 137.0 mmol/L Normal 136.0-144. 0 [facility] Comment on above: Performed By: #### 7 722873, [id number], [id number] ####[facility] (DEFAULT)[address] [place] [address] Urea nitrogen 10 mg/dL Normal 8-26 [facility] Comment on above: Performed By: #### 7 534924, 99145282, [id number] ####[facility] (DEFAULT)[address] [place] [address] CBC w/ Auto Diffon 12-09-201 7 Erythrocyte distribution width Auto Ratio (RBC) 13.2 % Normal 11.5-15.0 [facility] Comment on above: Performed By: #### 7 391565, [id number], [id number] ####[facility] (DEFAULT)[address] [place] [address] Erythrocytes (RBC) 4.40 x10 Normal 3.70-5.30 [facility] Comment on above: Performed By: #### 7 168577, 56939583, [id number] ####[facility] (DEFAULT)[address] [place] [address] Hematocrit (HCT) 39.4 % Normal 33.7-40.4 [facility] Comment on above: Performed By: #### 7 060632, [id number], [id number] ####[facility] (DEFAULT)[address] [place] [address] Hemoglobin mass conc (Bld) 13.8 g/dL Normal 11.3-15.9 [facility] Comment on above: Performed By: #### 7 234744, 53666055, [id number] ####[facility] (DEFAULT)[address] [place] [address] Man Diff? Auto Normal [facility] Comment on above: Performed By: #### 7 574171, 44848205, [id number] ####[facility] (DEFAULT)[address] [place] [address] MCH 31 pg Normal 24-34 [facility] Comment on above: Performed By: #### 7 031785, 40401047, [id number] ####[facility] (DEFAULT)[address] [place] [address] MCHC mass conc (RBC) 35 g/dL Normal 26-37 [facility] Comment on above: Performed By: #### 7 566767, 43856044, [id number] ####[facility] (DEFAULT)[address] [place] [address] MCV 90 fL Normal 81-100 [facility] Comment on above: Performed By: #### 7 770410, [id number], [id number] ####[facility] (DEFAULT)[address] [place] [address] 30051 Platelet mean volume (PMV) 8.6 fL Normal 6.3-10.2 [facility] Comment on above: Performed By: #### 7 412072, [id number], [id number] ####[facility] (DEFAULT)[address] [place] [address] Platelets 194 x10 Normal 138-427 [facility] Comment on above: Performed By: #### 7 349147, [id number], [id number] ####[facility] (DEFAULT)[address] [place] [address] WBC (Leukocytes) 6.0 x10 Invalid Interpretation Code [facility] Comment on above: Performed By: #### 7 863559, [id number], [id number] ####[facility] (DEFAULT)[address] [place] [address] Vital Signs Date Time Vital Sign Value Performing Clinician Karlos singh 11-03-2021 15:36-0400 Blood Pressure Location LINDA MASON [facility] 11-03-2021 15:36-0400 Diastolic blood pressure 87 mm[Hg] LINDA AMSON [facility] 11-03-2021 15:36-0400 Heart rate 101 /min LINDA MASON [facility] 11-03-2021 15:36-0400 Systolic blood pressure 136 mm[Hg] LINDA MASON [facility] Encounters Encounter Date Encounter Type Care Provider Facility Start: 10-18-2023 End: 10-18-2023 ambulatory JESSICA AICHHOLZ Not Available Start: 07-18-2023 End: 07-18-2023 ambulatory JESSICA AICHHOLZ Not Available Start: 04-13-2023 End: 04-13-2023 ambulatory JESSICA AICHHOLZ Not Available Start: 01-31-2023 End: 01-31-2023 ambulatory JESSICA AICHHOLZ Not Available Start: 11-09-2022 End: 11-10-2022 ambulatory LINDA MASON Facility:[facility] Start: 11-09-2022 End: 11-09-2022 Patient encounter procedure LINDA MASON [facility] Start: 06-29-2022 ambulatory RODNEY SOSA Facil ity:[facility]1 Start: 05-25-2022 End: 05-26-2022 ambulatory RODNEY SOSA Facility:[facility] Start: 05-09-2022 End: 05-10-2022 ambulatory RODNEY SOSA Facility:[facility] Start: 05-02-2022 End: 05-02-2022 ambulatory RODNEY SOSA Facility:[facility] Start: 03-11-2022 End: 03-11-2022 ambulatory Jessica Sosa Work Phone: [facility] Work Phone: Start: 03-11-2022 End: 03-11-2022 Patient encounter procedure Jessica Sosa Work Phone: [facility] Work Phone: Start: 12-08-2021 End: 12-09-2021 ambulatory RODNEY SOSA Facility:[facility] Start: 11-03-2021 End: 11-03-2021 Patient encounter procedure LINDA MASON [facility] Start: 08-09-2021 End: 08-10-2021 ambulatory RODNEY SOSA Facility:[facility] Start: 06-24-2021 End: 06-25-2021 ambulatory RODNEY SOSA Facility:[facility] Start: 03-18-2021 End: 03-19-2021 ambulatory MD NIDHI MICHAELS Facility:[facility] Start: 01-26-2021 End: 01-26-2021 Emergency department patient visit MD NIDHI MICHAELS Facility:[facility] Start: 03-05-2019 End: 03-06-2019 Patient encounter procedure RALPH SOTO Facility:[facility] Start: 01-16-2017 End: 01-24-2017 Ambulatory [facility] Facility:[facility] Start: 12-12-2016 End: 12-20-2016 Ambulatory [facility] Facility:[facility] Start: 12-10-2016 End: 12-13-2016 Ambulatory Conrado Álvarez [place] Facility:[facility] Procedures Date Procedure Procedure Detail Performing [...] on above: 2009 Tarsal tunnel release AMPARO RAMIREZ ISABELLA Comment on above: left wrist surgery 6 LINDA PER RY Comment on above: left Payers Date Payer Category Payer Private Health Insurance [id number] 2022 Self-pay 2021 Unknown [id number] 2021 Medicaid 2021 Unknown 2017 Unknown [id number] 2016 Medicare [id number] 1959 Medicaid [id number] 1959 Private Health Insurance [id number] 1959 Unknown [id number] 1955 Unknown [id number] 2.16.8 40.1.668714.3.579.2.647 1955 Unknown [id number] 2.16. 840.1.250202.3.579.2.196 1955 Unknown [id number] 2.16. 840.1.825186.3.579.2.196 1955 Unknown [id number] 2.16.84 0.1.115453.3.579.2.593 1955 Unknown [id number] 2.16.84 0.1.293988.3.579.2.593 1955 Unknown [id number] 2.16.84 0.1.726291.3.579.2.593 1954 Unknown [id number] 2.16.84 0.1.486504.3.579.2.593 1954 Unknown [id number] 2.16.84 0.1.699680.3.579.2.593 1954 Unknown [id number] 2.16.84 0.1.067062.3.579.2.593 1955 Unknown [id number] 2.16.84 0.1.735709.3.579.2.593 1955 Unknown [id number] 2.16.8 40.1.154708.3.579.2.727 1955 Unknown [id number] 2.16.84 0.1.001990.3.579.2.1259 1954 Unknown [id number] 2.16.84 0.1.345465.3.579.2.1259 1955 Unknown [id number] 2.16.84 0.1.603730.3.579.2.1259 1955 Unknown [id number] 2.16.840 .1.133474.3.579.2.1259 Private Health Insurance [id number] Unknown 2.16.8 40.1.925213.3.579.2.531 Social History Date Type Detail Facility Start: 11-03-2021 Tobacco smoking status Never s moked tobacco (finding) [facility] Sex Assigned At Female [facility] Start: 1955 Sex Assigned At Female [facility] Functional Status Date Assessment Result Facility 11-03-2021 Functional Status N/A [facility] Clinical Note 12-09-2021 Note Date & Type [...] authenticated by: JEROME AYALA Date: 2021-12-09 06:[address] [facility] Discharge instructions 11-03-2021 Note Date & [...] fried and sweet foods. General instructions Take qvrg-[id number]-[id number] and prescription medicines only as told by [...] 12/03/2009 Document Revised: 05/30/2019 Document Reviewed: 02/22/2018 [employer] Patient Education 2020 [employer]. Follow Up Care 10/15/2021 09:20:30 With:ISABELLA MCGHEE, LINDA Young, URL Address: [facility] [address] [place] [address] When:1 year [facility] Clinical Note 01-26-2021 Note Date & Type [...] Mildly enlarged cardiac silhouette. Final Dictated by: Shaye ALANIZ, Henri Solis Dictated DT/TM: 01/26/2021 2:55 pm Signed by: Shaye ALANIZ, Henri Solis Signed (Electronic Signature): 01/26/2021 2:56 pm (If Report Is Signed, Electronically Signed in Other Vendor System) [facility] Evaluation + Plan note Note Date & Type Note Facility Evaluation + Plan note Future Appointments Appointment Date:11/09/2022 02:00:00 PM Scheduled Provider:LINDA MASON PA-C Location:[facility] Appointment Type:URO Office Visit [facility] Evaluation note Note Date & Type Note Facility Evaluation note No assessment information availa [facility] Work Phone: Hospital course Narrative Note Date & Type Note Facility Hospital course Narrative No data available for this section [facility] Hospital Discharge instructions Note Date & Type Note Facility Hospital Discharge instructions No data available for this section [facility] Progress note Note Date & Type Note Facility Progress note No data available for this section [facility] Summary Purpose Family History No Family History Records FoundNo Family History Records FoundNo Family History Records FoundNo Family History Records FoundNo Family History Records FoundNo Family History Records FoundNo Family History Records FoundNo Family History Records Found Advance Directives No Advanced Directives Records Found Advance Directive Response Recorded Date/ Time Advance Directives No March 11, 2022 10:04am Hospital Course Note MR#: [id number] [facility] Pt. Name: Claudette Hernandes Admitted: 03/05/2019 Discharged: 03/06/2019 Date of : 1955 Physician: Ralph Soto MD DISCHARGE SUMMARY PRIMARY CARE PHYSICIAN: Jessica Sosa N.P. PRINCIPAL PROBLEMS: 1. Unstable angina-ruled out. 2. [...] and she was transported via EMS to [facility]. In [place], an EKG was done that showed no significant changes and initial t (more content not included)... Chief Complaint and Reason for Visit Chief Complaint m20.11 Additional Source Comments INFORMATION SOURCE (unrecogn ized section and content) DATE CREATED AUTHOR 08/08/2017 [facility] DATE CREATED AUTHOR AUTHOR'S ORGANIZ ATION 03/19/2019 [facility] DATE CREATED AUTHOR AUTHOR'S ORGANIZ ATION 03/19/2021 [facility] DATE CREATED AUTHOR AUTHOR'S ORGANIZ ATION 04/06/2021 [facility] DATE CREATED AUTHOR AUTHOR'S ORGANIZ ATION 03/26/2022 [facility] DATE CREATED AUTHOR AUTHOR'S ORGANIZ ATION 06/22/2022 [facility] DATE CREATED AUTHOR AUTHOR'S ORGANIZ ATION 11/11/2022 [facility] DATE CREATED AUTHOR AUTHOR'S ORGANIZ ATION 10/20/2023 [facility] Specialists EPIC Care Team (unrecognized [...] BE BASED ON THE PRIMARY CLINICAL RECORDS. [facility], [facility]. provides no warranty or guarantee of the accuracy or completeness of information in this document.
== END 2023-10-25 11:11 | disposition home or self-care (01) ==
LOC: MAMMO 11:10
PROVIDERS: PCP Nurse Practitioner; Visit Provider Nurse Practitioner
DX: Z12.31 Encounter for screening mammogram for malignant neoplasm of breast (principal); Z80.8 Family history of malignant neoplasm of other organs or systems
CPT/HCPCS: 77063; 77067

== ENCOUNTER 2024-03-26 20:02 | Outpatient (OUT) | payer MEDICARE, MEDICAID, SELFPAY ==
--- OUTSIDE RECORDS SUMMARY | 2024-03-26 20:05 | XMS_ITS | CCD ---
Demographics Address [address] [place] [address] Home Phone Mobile Phone Preferred Language en Marital Status Unknown Confucianist Affiliation Unknown Race White Ethnic Group Not or Lati no Author Organization [facility] Care Team Providers Care Preparation Plant Supervisor Name Role Phone Conrado Mccoy Unavailable Unavail able Nadine, Conrado Álvarez Unavailable Unavail able Provider, Unlisted Unavailable Unavailable Jackelin Espinal Unavailable Unavailable Nadine, Conrado Álvarez Unavailable Unavail able Nadine, Conrado Álvarez Unavailable Unavail able Provider, Unlisted Unavailable Unavailable Conrado Ramos Unavailable Unavailable Theodore Guevara Unavailable Unavailable Nadine, Conrado Álvarez Unavailable Unavail able Nadine, Conrado Álvarez Unavailable Unavail able Provider, Unlisted Unavailable Unavailable SALLY HANI Admitting Unavailable SALLY HANI Attending Unavailable ZAHIDA BARKER Referring Unavailable ELIANAZ, JESSICA Primary Care Unavailable MD NIDHI MICHAELS Attending Unavailable MD NIDHI MICHAELS Primary Care Unavailable MD NIDHI MICHAELS Primary Care Unavailable MD NIDHI MICHAELS Consulting Unavailable MD SLICK TARIQ Attending Unavailab JESSICA Egan Primary Care Physician Jessica Sosa Primary Care Provider RADHA Batres Attending Provider Jessica Sosa Primary Care Unavailable Yordan Batres Attending Unavailable Yordan Batres Admitting Unavailable AICHHOLZ, RODNEY JESSICA Admitting Unavailable AICHHOLZ, CABIN CLEANING SUPERVISOR JESSICA Attending Unavailable AICHHOLZ, CABIN CLEANING SUPERVISOR JESSICA Consulting Unavailable AICHHOLZ, CABIN CLEANING SUPERVISOR JESSICA Primary Care Unavailable AICHHOLZ, CABIN CLEANING SUPERVISOR JESSICA Admitting Unavailable DR JACKELIN TAMAYO V Consulting Unavailable AICHHOLZ, CABIN CLEANING SUPERVISOR JESSICA Attending Unavailable AICHHOLZ, CABIN CLEANING SUPERVISOR JESSICA Primary Care Unavailable AICCARLOS, CABIN CLEANING SUPERVISOR JESSICA Consulting Unavailable JACKELIN BATRES Consulting Unavailable AICHHOLZ, CABIN CLEANING SUPERVISOR JESSICA Admitting Unavailable AICHHOLZ, CABIN CLEANING SUPERVISOR JESSICA Attending Unavailable AICHHOLZ, CABIN CLEANING SUPERVISOR JESSICA Consulting Unavailable AICHHOLZ, CABIN CLEANING SUPERVISOR JESSICA Primary Care Unavailable DR JEROME AYALA Consulting Unavailable AICHHOLZ, CABIN CLEANING SUPERVISOR JESSICA Admitting Unavailable AICHHOLZ, CABIN CLEANING SUPERVISOR JESSICA Attending Unavailable AICHHOLZ, CABIN CLEANING SUPERVISOR JESSICA Consulting Unavailable AICHHOLZ, CABIN CLEANING SUPERVISOR JESSICA Primary Care Unavailable JOSE DE JESUS PEREZ Consulting Unavailable AICHHOLZ, CABIN CLEANING SUPERVISOR JESSICA Primary Care Unavailable AICHHOLZ, CABIN CLEANING SUPERVISOR JESSICA Attending Unavailable AICHHOLZ, CABIN CLEANING SUPERVISOR JESSICA Admitting Unavailable AICHHOLZ, CABIN CLEANING SUPERVISOR JESSICA Consulting Unavailable AICHHOLZ, CABIN CLEANING SUPERVISOR JESSICA Admitting Unavailable AICHHOLZ, CABIN CLEANING SUPERVISOR JESSICA Attending Unavailable AICHHOLZ, CABIN CLEANING SUPERVISOR JESSICA Primary Care Unavailable AICHHOLZ, CABIN CLEANING SUPERVISOR JESSICA Admitting Unavailable AICHHOLZ, CABIN CLEANING SUPERVISOR JESSICA Attending Unavailable AICHHOLZ, CABIN CLEANING SUPERVISOR JESSICA Consulting Unavailable AICHHOLZ, CABIN CLEANING SUPERVISOR JESSICA Primary Care Unavailable DR JEROME AYALA Consulting Unavailable LINDA MASON Attending Unavailable Pop Carreon MD Primary Care Provider [phone] Aichholz MUSEUM EDUCATOR, Jessica Unavailable AICHHOLZ, JESSICA Attending Unavailable AICHHOLZ, JESSICA Attending Unavailable AICHHOLZ, JESSICA Attending Unavailable AICHHOLZ, JESSICA Attending Unavailable AICHHOLZ, JESSICA Attending Unavailable Meghana Canseco DO Unavailable Allergies Allergy Classification Reported Allergen(s) Allergy Type Date of Onset Reaction(s) Facility (5 sources) acetaminophen / HYDROcodone; Translations: [Vicodin] Drug Allergy 3 Eruption of skin (disorder) [facility] Repository (1 source) acetaminophen / oxyCODONE; Translations: [Percocet 5/325] Drug Allergy AOF [facility] Repository (18 sources) codeine; Translations: [codeine] Drug Allergy 0 Eruption of skin (disorder), Weal (disorder), Rash [facility] Repository (2 sources) Acetaminophen / oxyCODONE Drug Allergy 0 [facility] Repository (3 sources) Acetaminophen; Translations: [acetaminophen] Drug Allergy Weal (disorder) [facility] (3 sources) Acetaminophen / oxyCODONE; Translations: [acetaminophen-oxyco done] Drug Allergy Cutaneous eruption (morphologic abnormality) [facility] (3 sources) acetaminophen / propoxyphene; Translations: [acetaminophen-propo xyphene] Drug Allergy Eruption of skin (disorder) [facility] (3 sources) Cortisone; Translations: [cortisone] Drug Allergy 6 Unknown [facility] (12 sources) oxyCODONE; Translations: [oxycodone] Drug Allergy 3 Weal (disorder), Rash [facility] (1 source) Cortisone Drug Allergy 6 [facility] Repository (1 source) Penicillins Drug allergy (disorder) 3 [facility] Repository (1 source) Darvocet-N 100 Drug allergy (disorder) 0 [facility] Repository (1 source) Codeine; Translations: [codeine sulfate] Drug Allergy [facility] Repository (9 sources) Acetaminophen / HYDROcodone Drug Allergy 3 [facility] (9 sources) Acetaminophen / oxyCODONE Drug Allergy 7 Rash [facility] (9 sources) HYDROcodone Drug Allergy 3 Rash [facility] (9 sources) Sulfamethoxazole / Trimethoprim Drug Allergy 3 Hives [facility] Medications Current Medications Medication Drug Class(es) Dates Sig (Normalized) Sig (Original) alendronic acid 70 mg oral tablet (13 sources) Bisphosphonate Start: 07-18-2023 End: 01-16-2024 take 1 tablet by mouth in the morning alendronate (Fosamax) 70 MG tablet Indications: Osteopenia, unspecified location Take 1 tablet (70 mg) by mouth every 7 (seven) days Take in the morning with a full glass of water, on an empty stomach, and do not take anything else by mouth or lie down for the next 30 min. 12 tablet 1 10/18/2023 Active Start: 11-06-2018 take 1 tablet by sarah th every week Fosamax 70 mg Tab 70 mg = 1 tab(s), Oral, 1x per week, Refills(s) 0 Start Date: 11/06/18 Status: Ordered cholecalciferol 0.125 mg oral capsule (7 sources) Vitamin D Start: 07-18-2023 End: 01-16-2024 take 1 capsule by mouth once daily cholecalciferol (Vitamin D-3) 125 MCG (5000 UT) capsule Indications: Vitamin D deficiency Take 1 capsule (125 mcg) by mouth Daily 90 capsule 1 10/18/2023 01/16/2024 Active losartan potassium 25 mg oral tablet (2 sources) Angiotensin 2 Receptor Neena Start: 03-25-2024 End: 04-24-2024 take 1 tablet by mouth once daily losartan (Cozaar) 25 MG tablet Indications: Primary hypertension (CMS/HCC) Take 1 tablet (25 mg) by mouth Daily 30 tablet 1 03/25/2024 04/24/2024 Active 24 hr mirabegron 50 mg extended release oral tablet (7 sources) beta3-Adrenergic Agonist Start: 07-18-2023 End: 01-16-2024 take 1 tablet by mouth every twenty-four hours at bedtime mirabegron ER (Myrbetriq) 50 MG 24 hr tablet Indications: Urinary incontinence in female Take 1 tablet (50 mg) by mouth at bedtime Do not crush, chew, or split. 90 tablet 1 10/18/2023 01/16/2024 Active tolterodine tartrate 2 mg oral tablet (2 sources) Cholinergic Muscarinic Antagonist Start: 11-03-2021 take 1 tablet by mouth twice daily tolterodine 2 mg Tab 2 mg = 1 tab(s), Oral, BID, # 60 tab(s), Refills(s) 11, Pharmacy: [facility]/pharmacy #[id number], 165.1, cm, 03/31/20 9:27:00 EST, Height/Length Dosing, 92.8, kg, 03/31/20 9:27:00 EST, Weight Dosing Start Date: 11/03/21 Status: Ordered Vitamin D (2 sources) Start: 11-06-2018 Vitamin D Oral, Daily, Refills(s) 0 Start Date: 11/06/18 Status: Ordered Completed/Discontinued Medications Medication Drug Class(es) Dates Sig (Normalized) Sig (Original) ARIPiprazole 2 mg oral tablet (13 sources) Atypical Antipsychotic Start: 07-18-2023 End: 06-23-2024 take 1 tablet by mouth once daily ARIPiprazole (Abilify) 2 MG tablet Indications: Anxiety and depression (CMS/HCC) Take 1 tablet (2 mg) by mouth Daily 90 tablet 1 10/18/2023 03/25/2024 Discontinued (Reorder) busPIRone hydrochloride 10 mg oral tablet (15 sources) Start: 07-18-2023 End: 06-23-2024 take 1 tablet by mouth once busPIRone (Buspar) 10 MG tablet Indications: Anxiety and depression (CMS/HCC) Take 1 tablet (10 mg) by mouth every 12 (twelve) hours 180 tablet 1 10/18/2023 03/25/2024 Discontinued (Reorder) Start: 11-03-2021 busPIRone 7.5 mg oral tablet Refills(s) 0 Start Date: 11/03/21 Status: Ordered cetirizine hydrochloride 10 mg oral tablet (13 sources) Histamine-1 Receptor Antagonist Start: 07-18-2023 End: 06-23-2024 take 1 tablet by mouth once daily cetirizine (ZyrTEC) 10 MG tablet Indications: Allergic rhinitis, unspecified seasonality, unspecified trigger Take 1 tablet (10 mg) by mouth Daily 90 tablet 1 10/18/2023 03/25/2024 Discontinued (Reorder) levothyroxine sodium 0.075 mg oral tablet (15 sources) l-Thyroxine Start: 07-18-2023 End: 06-23-2024 take 1 tablet by mouth before mealtime levothyroxine (Synthroid, Levoxyl) 75 MCG tablet Indications: Hypothyroidism, unspecified type (CMS/HCC) Take 1 tablet (75 mcg) by mouth in the morning. Take before meals. 90 tablet 1 10/18/2023 03/25/2024 Discontinued (Reorder) Start: 11-06-2018 take 1 tablet by sarah th once daily levothyroxine 50 mcg (0.05 mg) Tab 50 microgram = 1 tab(s), Oral, Daily, Refills(s) 0 Start Date: 11/06/18 Status: Ordered montelukast 10 mg oral tablet (15 sources) Leukotriene Receptor Antagonist Start: 07-18-2023 End: 06-23-2024 take 1 tablet by mouth at bedtime montelukast (Singulair) 10 MG tablet Indications: Allergic rhinitis, unspecified seasonality, unspecified trigger Take 1 tablet (10 mg) by mouth at bedtime 90 tablet 1 10/18/2023 03/25/2024 Discontinued (Reorder) Start: 11-06-2018 take 1 tablet by sarah th once daily Singulair 10 mg Tab 10 mg = 1 tab(s), Oral, Daily, Refills(s) 0 Start Date: 11/06/18 Status: Ordered sertraline 100 mg oral tablet (15 sources) Serotonin Reuptake Inhibitor Start: 07-18-2023 End: 06-23-2024 take 1 tablet by mouth in the morning sertraline (Zoloft) 100 MG tablet Indications: Generalized Anxiety Disorder , Major Depressive Disorder Take 1 tablet (100 mg) by mouth in the morning and 1 tablet (100 mg) before bedtime. 180 tablet 1 10/18/2023 03/25/2024 Discontinued (Reorder) Start: 11-06-2018 take 1 tablet by sarah th once daily Zoloft 100 mg Tab 100 mg = 1 tab(s), Oral, Daily, Refills(s) 0 Start Date: 11/06/18 Status: Ordered simvastatin 20 mg oral tablet (15 sources) HMG-CoA Reductase Inhibitor Start: 07-18-2023 End: 06-23-2024 take 1 tablet by mouth at bedtime simvastatin (Zocor) 20 MG tablet Indications: Mixed hyperlipidemia (CMS/HCC) Take 1 tablet (20 mg) by mouth at bedtime 90 tablet 1 10/18/2023 03/25/2024 Discontinued (Reorder) Start: 11-06-2018 take 1 tablet by sarah th once daily at bedtime simvastatin 20 mg Tab 20 mg = 1 tab(s), Oral, Once a day (at bedtime), Refills(s) 0 Start Date: 11/06/18 Status: Ordered traZODone hydrochloride 50 mg oral tablet (13 sources) Serotonin Reuptake Inhibitor Start: 07-18-2023 End: 06-23-2024 take 2 tablets by mouth at bedtime traZODone (Desyrel) 50 MG tablet Indications: Anxiety and depression (CMS/HCC) Take 2 tablets (100 mg) by mouth at bedtime 180 tablet 1 10/18/2023 03/25/2024 Discontinued (Reorder) Problems Active Problems Problem Classification Problem Date Documented Da te Episodic/Chronic Acquired foot deformities (9 sources) Acquired hallux valgus; Translations: [Hallux valgus (acquired), unspecified foot] Onset: 01-27-2023 01-27-2023 Chronic Anxiety disorders (15 sources) Mixed anxiety and depressive disorder; Translations: [Anxiety disorder, unspecified] Onset: 04-13-2023 04-13-2023 Chronic Disorders of lipid metabolism (20 sources) Hypercholesterolemia ; Translations: [Hyperlipidemia, unspecified] Onset: 08-09-2021 Resolved: 12-20-2023 05-17-2013 Chronic Diverticulosis and diverticulitis (9 sources) Diverticular disease; Translations: [Diverticulosis of intestine, part unspecified, without perforation or abscess without bleeding] Onset: 04-13-2023 04-13-2023 Chronic Essential hypertension (13 sources) Hypertensive disorder; Translations: [Essential (primary) hypertension] Onset: 04-13-2023 08-08-2013 Chronic Comment on above: [facility] Genitourinary symptoms and ill-defined conditions (18 sources) Mixed incontinence; Translations: [Female stress incontinence] Onset: 11-03-2021 Chronic Genitourinary symptoms and ill-defined conditions (15 sources) Nocturia; Translations: [Poor stream of urine] Onset: 04-13-2023 02-27-2020 Episodic Immunizations and screening for infectious disease (4 sources) Needs influenza immunization; Translations: [Encounter for immunization] Onset: 03-25-2024 03-25-2024 Episodic Mood disorders (9 sources) Recurrent major depressive episodes, mild ; Translations: [Major depressive disorder, recurrent, mild] Onset: 01-31-2023 01-31-2023 Chronic Nutritional deficiencies (14 sources) Vitamin D deficiency, unspecified; Translations: [Vitamin D deficiency] Onset: 06-03-2022 04-13-2023 Chronic Other acquired deformities (9 sources) Contracture of joint of right ankle; Translations: [Contracture, right ankle] Onset: 01-27-2023 01-27-2023 Chronic Other bone disease and musculoskeletal deformities (2 sources) Posterior calcaneal exostosis 05-17-2013 Episodic Comment on above: left Other bone disease and musculoskeletal deformities (15 sources) Osteopenia; Translations: [Other specified disorders of bone density and structure, unspecified site] Onset: 04-13-2023 04-13-2023 Episodic Other diseases of bladder and urethra (1 source) Detrusor overactivity; Translations: [Overactive bladder] Onset: 11-03-2021 Chronic Other diseases of bladder and urethra (2 sources) Overactive bladder 03-31-2020 Chronic Other diseases of bladder and urethra (3 sources) Traumatic urethral stricture; Translations: [Other post-traumatic urethral stricture, female] Onset: 11-03-2021 Episodic Other nervous system disorders (9 sources) Bilateral carpal tunnel syndrome; Translations: [Carpal tunnel syndrome, bilateral upper limbs] Onset: 01-27-2023 01-27-2023 Chronic Other nervous system disorders (9 sources) Ulnar neuropathy of right arm; Translations: [Lesion of ulnar nerve, right upper limb] Onset: 01-27-2023 01-27-2023 Chronic Other nutritional; endocrine; and metabolic disorders (9 sources) Body mass index 25-29 - overweight; Translations: [Overweight] Onset: 12-20-2023 12-20-2023 Episodic Other upper respiratory disease (2 sources) Seasonal allergic rhinitis 10-04-2013 Chronic Other upper respiratory disease (13 sources) Allergic rhinitis; Translations: [Allergic rhinitis, unspecified] Onset: 04-13-2023 04-13-2023 Chronic Other upper respiratory disease (9 sources) Seasonal allergy; Translations: [Other seasonal allergic rhinitis] Onset: 04-13-2023 04-13-2023 Chronic Residual codes; unclassified (15 sources) Obstructive sleep apnea syndrome; Translations: [Obstructive sleep apnea (adult) (pediatric)] Onset: 04-13-2023 08-22-2023 Chronic Spondylosis; intervertebral disc disorders; other back problems (20 sources) Other cervical disc degeneration, unspecified cervical region; Translations: [Other intervertebral disc degeneration, thoracic region] Onset: 06-03-2022 01-27-2023 Chronic Thyroid disorders (16 sources) Hypothyroidism, unspecified; Translations: [Hypothyroidism] Onset: 06-03-2022 04-13-2023 Chronic Unclassified (2 sources) Asymptomatic microscopic hematuria 11-21-2019 Unclassified (2 sources) Finding of sensation of bladder 02-27-2020 Unclassified (1 source) Hallux valgus (acquired), right foot; Translations: [Hallux valgus (acquired), right foot] Onset: 03-11-2022 Unclassified (3 sources) CONTACT W/AND (SUSP) EXPOS COVID-19; Translations: [CONTACT W/AND (SUSP) EXPOS COVID-19] Onset: 05-03-2022 Past or Other Problems Problem Classification Problem Date Documented Da te Episodic/Chronic Abdominal pain (9 sources) Abdominal pain; Translations: [Unspecified abdominal pain] Onset: 04-13-2023 Resolved: 04-13-2023 04-13-2023 Episodic Chronic obstructive pulmonary disease and bronchiectasis (13 sources) Bronchitis, not specified as acute or chronic; Translations: [Bronchitis] Onset: 05-09-2022 Resolved: 04-13-2023 Episodic Fracture of upper limb (9 sources) Fracture at wrist and/or hand level; Translations: [Fracture of unspecified carpal bone, unspecified wrist, initial encounter for closed fracture] Onset: 04-13-2023 Resolved: 04-13-2023 04-13-2023 Episodic Mood disorders (5 sources) Mood disorders Onset: 12-20-2023 12-20-2023 Mycoses (9 sources) Candidiasis of skin; Translations: [Candidiasis of skin and nail] Onset: 04-13-2023 04-13-2023 Episodic Nonspecific chest pain (9 sources) Chest pain; Translations: [Chest pain, unspecified] Onset: 04-13-2023 Resolved: 04-13-2023 04-13-2023 Episodic Other bone disease and musculoskeletal deformities (1 source) Other specified disorders of bone density and structure, unspecified site; Translations: [OTH D/O BONE DEN STRUCT UNS SITE] Onset: 06-25-2021 Episodic Other connective tissue disease (9 sources) Dupuytren's contracture; Translations: [Palmar fascial fibromatosis [Dupuytren]] Onset: 01-27-2023 01-27-2023 Episodic Other connective tissue disease (9 sources) Dupuytren's disease of palm; Translations: [Palmar fascial fibromatosis [Dupuytren]] Onset: 01-27-2023 01-27-2023 Episodic Other connective tissue disease (9 sources) Lateral epicondylitis; Translations: [Lateral epicondylitis, unspecified elbow] Onset: 04-13-2023 Resolved: 04-13-2023 04-13-2023 Episodic Other diseases of veins and lymphatics (9 sources) Peripheral venous insufficiency; Translations: [Venous insufficiency (chronic) (peripheral)] Onset: 01-27-2023 01-27-2023 Episodic Other lower respiratory disease (9 sources) Nodule of lung; Translations: [Solitary pulmonary nodule] Onset: 04-13-2023 04-13-2023 Episodic Other lower respiratory disease (9 sources) Dyspnea; Translations: [Dyspnea, unspecified] Onset: 04-13-2023 Resolved: 04-13-2023 04-13-2023 Episodic Other non-traumatic joint disorders (4 sources) Pain in right hip; Translations: [PAIN IN RIGHT HIP] Onset: 12-08-2021 Episodic Other nutritional; endocrine; and metabolic disorders (13 sources) Body mass index 30+ - obesity; Translations: [Obesity, unspecified] Onset: 01-31-2023 Resolved: 12-20-2023 01-31-2023 Chronic Other nutritional; endocrine; and metabolic disorders (9 sources) Obesity caused by energy imbalance; Translations: [Class 1 obesity due to excess calories without serious comorbidity in adult] Onset: 01-31-2023 Resolved: 12-20-2023 01-31-2023 Chronic Other screening for suspected conditions (not mental disorders or infectious disease) (15 sources) Encounter for screening mammogram for malignant neoplasm of breast; Translations: [Patient encounter status] Onset: 06-24-2021 Episodic Poisoning by nonmedicinal substances (9 sources) Insect sting; Translations: [Toxic effect of venom of other arthropod, accidental (unintentional), initial encounter] Onset: 04-13-2023 Resolved: 04-13-2023 04-13-2023 Episodic Residual codes; unclassified (1 source) Asymptomatic menopausal state; Translations: [ASYMPTOMATIC MENOPAUSAL STATE] Onset: 06-25-2021 Episodic Residual codes; unclassified (1 source) Family history of malignant neoplasm of other organs or systems; Translations: [FAM HX MALIG NEOPLASM OTH ORGN/SYS] Onset: 06-25-2021 Episodic Residual codes; unclassified (4 sources) Menopause present; Translations: [Asymptomatic menopausal state] Onset: 04-13-2023 04-13-2023 Episodic Residual codes; unclassified (9 sources) Insomnia; Translations: [Insomnia, unspecified] Onset: 04-13-2023 04-13-2023 Episodic Residual codes; unclassified (7 sources) Postmenopausal state; Translations: [Asymptomatic menopausal state] Onset: 04-13-2023 12-20-2023 Episodic Spondylosis; intervertebral disc disorders; other back problems (20 sources) Pain in thoracic spine; Translations: [Spinal stenosis of lumbar region] Onset: 05-25-2022 Resolved: 04-13-2023 Episodic Unclassified (1 source) CONTACT W/AND (SUSP) EXPOS COVID-19; Translations: [CONTACT W/AND (SUSP) EXPOS COVID-19] Onset: 05-02-2022 Results Test Name Value Interpretation Reference Range Facility CBC AUTO DIFFon 05-25-2022 BASO # 0.0 103/ul Normal 0.0-0.1 [facility] Comment on above: Performed By: #### C BC #### [facility] [address] [place] [address] Dr. Dedrick Kinsey Basophils/100 WBC (Bld) 0.5 % Normal 0.2-2.0 [facility] Comment on above: Performed By: #### C BC #### [facility] [address] [place] [address] Dr. Dedrick Kinsey EO # 0.1 103/ul Normal 0.0-0.7 [facility] Comment on above: Performed By: #### C BC #### [facility] [address] [place] [address] Dr. Dedrick Kinsey Eosinophils/100 WBC (Bld) 2.5 % Normal 0.9-7.0 [facility] Comment on above: Performed By: #### C BC #### [facility] [address] [place] [address] Dr. Dedrick Kinsey Erythrocyte distribution width (RBC) [Ratio] 13.2 % Normal 11.0-15.0 [facility] Comment on above: Performed By: #### C BC #### [facility] [address] [place] [address] Dr. Dedrick Kinsey Hematocrit (Bld) [Volume fraction] 37.5 % Normal 36.0-48.0 [facility] Comment on above: Performed By: #### C BC #### [facility] [address] [place] [address] Dr. Dedrick Kinsey Hemoglobin (Bld) [Mass/Vol] 12.6 g/dL Normal 12.0-16.0 [facility] Comment on above: Performed By: #### C BC #### [facility] [address] [place] [address] Dr. Dedrick Kinsey IG # 0.01 10e3/ul Normal 0.00-0.03 [facility] Comment on above: Performed By: #### C BC #### [facility] [address] [place] [address] Dr. Dedrick Kinsey IG % 0.2 % Normal 0.0-0.5 [facility] Comment on above: Performed By: #### C BC #### [facility] [address] [place] [address] Dr. Dedrick Kinsey LYMPH # 1.5 103/ul Normal 1.2-3.8 [facility] Comment on above: Performed By: #### C BC #### [facility] [address] [place] [address] Dr. Dedrick Kinsey Lymphocytes/100 WBC (Bld) 34.0 % Normal 20.5-60.0 [facility] Comment on above: Performed By: #### C BC #### [facility] [address] [place] [address] Dr. Dedrick Kinsey MANUAL DIFF REQ NO Normal [facility] Comment on above: Performed By: #### C BC #### [facility] [address] [place] [address] Dr. Dedrick Kinsey MCH (RBC) [Entitic mass] 29.9 pg Normal 26.7-34.0 [facility] Comment on above: Performed By: #### C BC #### [facility] [address] [place] [address] Dr. Dedrick Kinsey MCHC (RBC) [Mass/Vol] 33.6 g/dL Normal 29.9-35.2 [facility] Comment on above: Performed By: #### C BC #### [facility] [address] [address] [address] Dedrick Kinsey MCV (RBC) [Entitic vol] 89.1 fL Normal 81.0-99.0 [facility] Comment on above: Performed By: #### C BC #### [facility] [address] [address] [address] Dedrick Kinsey MONO # 0.4 103/ul Normal 0.3-0.8 [facility] Comment on above: Performed By: #### C BC #### [facility] [address] [address] [address] Dedrick Kinsey Monocytes/100 WBC (Bld) 9.0 % Normal 1.7-12.0 [facility] Comment on above: Performed By: #### C BC #### [facility] [address] [address] [address] Dedrick Kinsey NEUT # 2.3 103/ul Normal 1.4-6.5 [facility] Comment on above: Performed By: #### C BC #### [facility] [address] [address] [address] Dedrick Kinsey Neutrophils/100 WBC (Bld) 53.8 % Normal 43.0-75.0 [facility] Comment on above: Performed By: #### C BC #### [facility] [address] [address] [address] Dedrick Kinsey Platelet mean volume (Bld) [Entitic vol] 9.2 fL Critically low 9.5-13.5 [facility] Comment on above: Performed By: #### C BC #### [facility] [address] [address] [address] Dedrick Kinsey PLT 188 103/ul Normal 150-450 [facility] Comment on above: Performed By: #### C BC #### [facility] [address] [address] [address] Dedrick Kinsey RBC 4.21 106/ul Normal 4.20-5.40 [facility] Comment on above: Performed By: #### C BC #### [facility] [address] [place], [place] [address] Dr. Dedrick Kinsey WBC 4.4 103/ul Normal 4.0-11.0 [facility] Comment on above: Performed By: #### C BC #### [facility] [id number] Dedrick Kinsey FREE T4on 05-25-2022 Free T4 [Mass/Vol] 0.79 ng/dL Normal 0.76-1.46 [facility] Comment on above: Performed By: #### V ITAD, FT4 ####[facility] [address] [id number]. Dedrick Kinsey LIPID PROFILEon 05-25-2022 CHOL-HDL RATIO NORM SEE BELOW Normal [facility] Comment on above: Result Comment: 3.3 - 4.4 LOW RISK 4.4 - 7.1 AVERAGE RISK 7.1 - 11.0 MODERATE RISK >11.0 HIGH RISK Performed By: #### T SH, CMP, LIPID ####[facility] [address] [id number]. Dedrick Kinsey Cholesterol [Mass/Vol] 175 mg/dL Normal <=200 [facility] Comment on above: Performed By: #### T SH, CMP, LIPID ####[facility] [address] [place], [place] [address]P[address]. Dedrick Kinsey Cholesterol in HDL [Mass/Vol] 39 mg/dL Critically low 40-60 [facility] Comment on above: Performed By: #### T SH, CMP, LIPID ####[facility] [address] [place], [place] [address]Mn. Dedrick Kinsey Cholesterol in LDL [Mass/Vol] 113.6 mg/dL Normal [facility] Comment on above: Performed By: #### T SH, CMP, LIPID ####[facility] [address] [id number]. Dedrick Kinsey Cholesterol.total/Cho lesterol in HDL [Mass ratio] 4.5 {ratio} Normal [facility] Comment on above: Performed By: #### T SH, CMP, LIPID ####[facility] [address] [address]Dr. Dedrick Kinsey HDL NORMAL > or = 60 mg/dl - LO W CARDIOVASCULAR RISK <40 mg/dl - HIGH CARDIOVASCULAR RISK Normal [facility] Comment on above: Performed By: #### T SH, CMP, LIPID ####[facility] [address] [address]Dr. Dedrick Kinsey LDL CALC NORMAL SEE BELOW Normal [facility] Comment on above: Result Comment: <100 mg/dl OPTIMAL 100 - 129 mg/dl NEAR OR ABOVE OPTIMAL 130 - 159 mg/dl BORDERLINE HIGH 160 - 189 mg/dl HIGH >190 mg/dl VERY HIGH Performed By: #### T SINTIA, CMP, LIPID ####[facility] [address] [address]Dr. Dedrick Kinsey Triglyceride [Mass/Vol] 112 mg/dL Normal <=150 [facility] Comment on above: Performed By: #### T SINTIA, CMP, LIPID ####[facility] [address] [address]Dr. Dedrick Kinsey VLDL CALC 22.4 mg/dL Normal [facility] Comment on above: Performed By: #### T SINTIA, CMP, LIPID ####[facility] [address] [address]Dr. Dedrick Kinsey PROF 14(COMP METB)on 023 Albumin [Mass/Vol] 3.5 g/dL Normal 3.4-5.0 [facility] Comment on above: Performed By: #### T SINTIA, CMP, LIPID ####[facility] [address] [address]Dr. Dedrick Kinsey Albumin/Globulin [Mass ratio] 1.0 {ratio} Normal [facility] Comment on above: Performed By: #### T SINTIA, CMP, LIPID ####[facility] [address] [address]Dr. Dedrick Kinsey ALP [Catalytic activity/Vol] 84 U/L Normal 46-116 [facility] Comment on above: Performed By: #### T SINTIA, CMP, LIPID ####[facility] [address] [address]Dr. Dedrick Kinsey ALT [Catalytic activity/Vol] 37 U/L Normal 14-59 [facility] Comment on above: Performed By: #### T SH, CMP, LIPID ####[facility] [address] [address]Dr. Dedrick Kinsey Anion gap [Moles/Vol] 11.7 mmol/L Normal [facility] Comment on above: Performed By: #### T SH, CMP, LIPID ####[facility] [address] [place], [place] [address]Dr. Dedrick Kinsey AST [Catalytic activity/Vol] 20 U/L Normal 15-37 [facility] Comment on above: Performed By: #### T SINTIA, CMP, LIPID ####[facility] [address] [place], [place] [address]Dr. Dedrick Kinsey Bilirubin [Mass/Vol] 0.8 mg/dL Normal 0.2-1.0 [facility] Comment on above: Performed By: #### T SINTIA, CMP, LIPID ####[facility] [address] [place], [place] [address]Dr. Dedrick Kinsey Calcium [Mass/Vol] 9.4 mg/dL Normal 8.5-10.1 [facility] Comment on above: Performed By: #### T SINTIA, CMP, LIPID ####[facility] [address] [place], [place] [address]Dr. Dedrick Kinsey Chloride [Moles/Vol] 106 mmol/L Normal 98-107 [facility] Comment on above: Performed By: #### T SH, CMP, LIPID ####[facility] [address] [place], [place] [address]Dr. Dedrick Kinsey CO2 [Moles/Vol] 28.4 mmol/L Normal 21.0-32.0 [facility] Comment on above: Performed By: #### T SH, CMP, LIPID ####[facility] [address] [place], [place] [address]Dr. Dedrick Kinsey Creatinine [Mass/Vol] 0.77 mg/dL Normal 0.55-1.02 [facility] Comment on above: Performed By: #### T SH, CMP, LIPID ####[facility] [address] [id number]. Dedrick Kinsey EGFR-AF NAMIBIAN >60 Normal >=60 [facility] Comment on above: Performed By: #### T SH, CMP, LIPID ####[facility] [address] [phone]. Dedrick Kinsey EGFR-NON AF NAMIBIAN >60 Normal >=60 [facility] Comment on above: Performed By: #### T SH, CMP, LIPID ####[facility] [address] [address] [phone]. Dedrick Kinsey Globulin (S) [Mass/Vol] 3.6 g/dL Normal [facility] Comment on above: Performed By: #### T SH, CMP, LIPID ####[facility] [address] [address]Dr. Dedrick Kinsey Glucose [Mass/Vol] 106 mg/dL Normal 74-106 [facility] Comment on above: Performed By: #### T SH, CMP, LIPID ####[facility] [address] [phone]. Dedrick Kinsey Potassium [Moles/Vol] 4.1 mmol/L Normal 3.5-5.1 [facility] Comment on above: Performed By: #### T SH, CMP, LIPID ####[facility] [address] [phone]. Dedrick Kinsey Protein [Mass/Vol] 7.1 g/dL Normal 6.4-8.2 [facility] Comment on above: Performed By: #### T SH, CMP, LIPID ####[facility] [address] [phone]. Dedrick Kinsey Sodium [Moles/Vol] 142 mmol/L Normal 136-145 [facility] Comment on above: Performed By: #### T SH, CMP, LIPID ####[facility] [address] [phone]. Dedrick Kinsey Urea nitrogen [Mass/Vol] 10.0 mg/dL Normal 7.0-18.0 [facility] Comment on above: Performed By: #### T SH, CMP, LIPID ####[facility] [address] [address]Dr. Dedrick Kinsey Urea nitrogen/Creatinine [Mass ratio] 13.0 mg/mg Normal [facility] Comment on above: Performed By: #### T SH, CMP, LIPID ####[facility] [address] [phone]. Dedrick Kinsey TSHon 05-25-2022 TSH 2.611 uIU/mL Normal 0.358-3.74 0 [facility] Comment on above: Performed By: #### T SH, CMP, LIPID ####[facility] [address] [address]Dr. Dedrick Kinsey VITAMIN D 25 OHon 05-25-2022 VIT D 25-OH 31.7 ng/mL Normal [facility] Comment on above: Performed By: #### V ITAD, FT4 ####[facility] [address] [address]Dr. Dedrick Kinsey VIT D RANGES SEE BELOW Normal [facility] Comment on above: Result Comment: <20 ng/mL Vit D deficient 20 - <30 ng/mL Vit D insufficient 30 - 100 ng/mL Vit D sufficient >100 ng/mL Potential Toxicity Performed By: #### V ITAD, FT4 ####[facility] [address] [address]Dr. Dedrick Kinsey XR CSPINE 2_3 VIEWSon 2022 [...] JEROME AYALA Date: 2022-05-25 11:30 Normal [facility] XR TSPINE 3 VIEWSon 05-26-19 23 XR [...] JEROME AYALA Date: 2022-05-25 11:32 Normal [facility] XR CHEST 2 Von 05-09-2022 XR CHEST [...] JESUS PEREZ Date: 2022-05-09 12:45 Normal [facility] Covid-19 PCR (CVDTB)on 04-20 SARS-CoV-2 (COVID-19) RNA JAYY+probe Ql (Unsp spec) Not detected Normal NOT DETECTED [facility] Comment on above: Result Comment: When diagnostic [...] for this test is supported by the Senior Label Specialist of Health and Human Service's declaration that [...] longer be used). Performed By: #### C VDTB ####[facility] [address] [place], [place] [address]. Ded[address] Kin[address] Basic Metabolic Panelon 02-21 Anion gap [Moles/Vol] 11.2 mmol/L Normal 6.0-15.0 [facility] Comment on above: Order Comment: Reason for Exam HAV (hallux abducto valgus), right Performed By: #### C BC, BMP #### [facility] [place] [facility] [address] [place] [address] Calcium [Mass/Vol] 9.2 mg/dL Normal 8.2-10.2 [facility] Comment on above: Order Comment: Reason for Exam HAV (hallux abducto valgus), right Result Comment: PERF ORMED BY: [place] [address] PATHOLOGIST [employer] MANAGER SHRUTHI KIRKPATRICK M.D. Performed By: #### C BC, BMP #### [facility] [place] [facility] [address] [place] [address] [place] Chloride [Moles/Vol] 102 mmol/L Normal 95-114 [facility] [place] Comment on above: Order Comment: Reason for Exam HAV (hallux abducto valgus), right Performed By: #### C BC, BMP #### [facility] [place] [facility] [address] [id number] [place] CO2 [Moles/Vol] 27.0 mmol/L Normal 22.0-30.0 [facility] Comment on above: Order Comment: Reason for Exam HAV (hallux abducto valgus), right Performed By: #### C BC, BMP #### [facility] [place] [facility] [address] [place] [address] [place] Creatinine [Mass/Vol] 0.80 mg/dL Normal 0.44-1.03 [facility] Comment on above: Order Comment: Reason for Exam HAV (hallux abducto valgus), right Performed By: #### C BC, BMP #### [facility] [place] [facility] [address] [id number] [place] Estimated GFR ( Kate > 60 Normal [facility] Comment on above: Order Comment: Reason for Exam HAV (hallux abducto valgus), right Result Comment: GFR estimated reference range: According to KDOQI guidelines, <60 ml/min/1.73m2 is sufficient to diagnose a patient with chronic kidney disease. Performed By: #### C BC, BMP #### [facility] [address] [place] [address] [place] Estimated GFR (Non- Am > 60 [facility] Comment on above: Order Comment: Reason for Exam HAV (hallux abducto valgus), right Performed By: #### C BC, BMP #### [facility] [address] [id number] [place] Glucose [Mass/Vol] 99 mg/dL Normal 70-100 [facility] Comment on above: Order Comment: Reason for Exam HAV (hallux abducto valgus), right Result Comment: [place] Glucose Reference Range is dependent on time and content of last meal. Glucose of more than 200 mg/dL in a nonstressed, ambulatory subject supports the diagnosis of Diabetes Mellitus. ADA recommended reference range Performed By: #### C BC, BMP #### [facility] [place] [facility] [address] [id number] [place] Potassium [Moles/Vol] 4.2 mmol/L Normal 3.5-5.1 [facility] Comment on above: Order Comment: Reason for Exam HAV (hallux abducto valgus), right Performed By: #### C BC, BMP #### [facility] [place] [facility] [address] [place] [address] [place] Sodium [Moles/Vol] 136 mmol/L Normal 136-146 [facility] Comment on above: Order Comment: Reason for Exam HAV (hallux abducto valgus), right Performed By: #### C BC, BMP #### [address] Urea nitrogen [Mass/Vol] 10 mg/dL Normal 9-23 [facility] Comment on above: Order Comment: Reason for Exam HAV (hallux abducto valgus), right Performed By: #### C BC, BMP #### [address] Basophils Auto (Bld) [#/Vol] Ordered By: Yordan Batres on 03-11-2022 Basophils (Bld) [#/Vol] 0.0 10*3/uL 0.0-0.2 [facility] Basophils/100 WBC Auto (Bld) Ordered By: Yordan Batres on 03-11-2022 Basophils/100 WBC (Bld) 0.4 % . [facility] Complete Blood Count Auto Di ffon 03-11-2022 Basophils (Bld) [#/Vol] 0.0 10*3/uL Normal 0.0-0.2 [facility] Comment on above: Order Comment: Reaso n for Exam HAV (hallux abducto valgus), right Result Comment: PERF ORMED BY: [place] [address] PATHOLOGIST [employer] MANAGER SHRUTHI KIRKPATRICK M.D. Performed By: #### C NICHOLE, BMP #### [address] Basophils/100 WBC (Bld) 0.4 % Normal . [facility] Comment on above: Order Comment: Reaso n for Exam HAV (hallux abducto valgus), right Performed By: #### C BC, BMP #### [address] Eosinophils (Bld) [#/Vol] 0.1 10*3/uL Normal 0.0-0.45 [facility] Comment on above: Order Comment: Reaso n for Exam HAV (hallux abducto valgus), right Performed By: #### C BC, BMP #### [address] Eosinophils/100 WBC (Bld) 1.4 % Normal . [facility] Comment on above: Order Comment: Reaso n for Exam HAV (hallux abducto valgus), right Performed By: #### C BC, BMP #### [address] Erythrocyte distribution width (RBC) [Ratio] 13.1 % Normal 11.9-15.3 [facility] Comment on above: Order Comment: Reaso n for Exam HAV (hallux abducto valgus), right Performed By: #### C BC, BMP #### [address] Hematocrit (Bld) [Volume fraction] 39.5 % Normal 34.0-46.4 [facility] Comment on above: Order Comment: Reaso n for Exam HAV (hallux abducto valgus), right Performed By: #### C BC, BMP #### [address] Hemoglobin (Bld) [Mass/Vol] 13.3 g/dL Normal 11.8-15.4 [facility] Comment on above: Order Comment: Reaso n for Exam HAV (hallux abducto valgus), right Performed By: #### C BC, BMP #### [address] Lymphocytes (Bld) [#/Vol] 1.6 10*3/uL Normal 1.00-4.8 [facility] Comment on above: Order Comment: Reaso n for Exam HAV (hallux abducto valgus), right Performed By: #### C BC, BMP #### [place] [address] [place] Lymphocytes/100 WBC (Bld) 22.0 % Normal . [facility] Comment on above: Order Comment: Reaso n for Exam HAV (hallux abducto valgus), right Performed By: #### C BC, BMP #### [address] MCH (RBC) [Entitic mass] 30.0 pg Normal 24.7-34.3 [facility] Comment on above: Order Comment: Reaso n for Exam HAV (hallux abducto valgus), right Performed By: #### C BC, BMP #### [address] MCV (RBC) [Entitic vol] 88.8 fL Normal 80-100 [facility] Comment on above: Order Comment: Reaso n for Exam HAV (hallux abducto valgus), right Performed By: #### C BC, BMP #### [address] Mean Corpuscular HGB Conc 33.7 g/dL Normal 32.0-35.0 [facility] Comment on above: Order Comment: Reaso n for Exam HAV (hallux abducto valgus), right Performed By: #### C BC, BMP #### [address] Monocytes (Bld) [#/Vol] 0.5 10*3/uL Normal 0.0-0.8 [facility] Comment on above: Order Comment: Reaso n for Exam HAV (hallux abducto valgus), right Performed By: #### C BC, BMP #### [address] Monocytes/100 WBC (Bld) 7.0 % Normal . [facility] Comment on above: Order Comment: Reaso n for Exam HAV (hallux abducto valgus), right Performed By: #### C BC, BMP #### [place] [address] [place] Neutrophils (Bld) [#/Vol] 5.0 10*3/uL Normal 1.8-7.7 [facility] Comment on above: Order Comment: Reaso n for Exam HAV (hallux abducto valgus), right Performed By: #### C BC, BMP #### [place] [address] [place] Neutrophils/100 WBC (Bld) 69.2 % Normal . [facility] Comment on above: Order Comment: Reaso n for Exam HAV (hallux abducto valgus), right Performed By: #### C BC, BMP #### [facility] [place] [facility] [address] NRBC% 0.2 /100{WBC} Normal 0-0.5 [facility] Comment on above: Order Comment: Reaso n for Exam HAV (hallux abducto valgus), right Performed By: #### C BC, BMP #### [facility] [address] Platelet mean volume (Bld) [Entitic vol] 7.6 fL Normal 6.3-10.7 [facility] Comment on above: Order Comment: Reaso n for Exam HAV (hallux abducto valgus), right Performed By: #### C BC, BMP #### [facility] [address] Platelets (Bld) [#/Vol] 212 10*3/uL Normal 150-450 [facility] Comment on above: Order Comment: Reaso n for Exam HAV (hallux abducto valgus), right Performed By: #### C BC, BMP #### [facility] [address] RBC (Bld) [#/Vol] 4.44 10*6/uL Normal 3.60-5.00 [facility] Comment on above: Order Comment: Reaso n for Exam HAV (hallux abducto valgus), right Performed By: #### C BC, BMP #### [facility] [place] [facility] [address] [place] [id number] [place] WBC (Bld) [#/Vol] 7.3 10*3/uL Normal 3.8-11.6 [facility] Comment on above: Order Comment: Reaso n for Exam HAV (hallux abducto valgus), right Performed By: #### C BC, BMP #### [facility] [address] Creatinine and Glomerular fi ltration rate.predicted panel (S/P/Bld)Ordered By: Yordan Batres on 03-11-2022 Creatinine [Mass/Vol] 0.80 mg/dL 0.44-1.03 [facility] ECG 12 lead ECGon 03-11-2022 ECG 12 lead ECG [facility] Main [address] [address] Electrocardiograph Report Signed Patient: Claudette Ross MR#: [id number] : 1955 Acct:[id number] Age/Sex: 66 / F ADM Date: 03/11/22 Loc: XD Room: Type: [facility] Attending Dr: Yordan Batres DPM Ordering Provider: Yordan Batres DPM Date of Service: 03/11/22 ECG/ECG 12 [...] Signed By Laura Chavez MD 1801 Normal [facility] Eosinophils Auto (Bld) [#/Vo l]Ordered By: Yordan Batres on 03-11-2022 Eosinophils (Bld) [#/Vol] 0.1 10*3/uL 0.0-0.45 [facility] Eosinophils/100 WBC Auto (Bl d)Ordered By: Yordan Batres on 03-11-2022 Eosinophils/100 WBC (Bld) 1.4 % . [facility] Erythrocyte distribution wid th Auto (RBC) [Ratio]Ordered By: Yordan Batres on 03-11-2022 Erythrocyte distribution width (RBC) [Ratio] 13.1 % 11.9-15.3 [facility] Estimated glomerular filtrat ion rate (GFR) non- AmericanOrdered By: Yordan Batres on 03-11-2022 GFR/1.73 sq M.predicted among non-blacks MDRD (S/P/Bld) [Vol rate/Area] > 60 mL/Min [facility] Hematocrit Auto (Bld) [Volum e fraction]Ordered By: Yordan Batres on 03-11-2022 Hematocrit (Bld) [Volume fraction] 39.5 % 34.0-46.4 [facility] Hemoglobin [Mass/volume] in BloodOrdered By: Yordan Batres on 03-11-2022 Hemoglobin (Bld) [Mass/Vol] 13.3 g/dL 11.8-15.4 [facility] Leukocytes [#/volume] correc slim for nucleated erythrocytes in Blood by Automated counOrdered By: Yordan Batres on 03-11-2022 WBC corrected for nucl RBC Auto (Bld) [#/Vol] 7.3 10*3/uL 3.8-11.6 [facility] Lymphocytes Auto (Bld) [#/Vo l]Ordered By: Yordan Batres on 03-11-2022 Lymphocytes (Bld) [#/Vol] 1.6 10*3/uL 1.00-4.8 [facility] Lymphocytes/100 WBC Auto (Bl d)Ordered By: Yordan Batres on 03-11-2022 Lymphocytes/100 WBC (Bld) 22.0 % . [facility] MCH Auto (RBC) [Entitic mass ]Ordered By: Yordan Batres on 03-11-2022 MCH (RBC) [Entitic mass] 30.0 pg 24.7-34.3 [facility] MCHC Auto (RBC) [Mass/Vol]Or dered By: Yordan Batres on 03-11-2022 MCHC (RBC) [Mass/Vol] 33.7 g/dL 32.0-35.0 [facility] MCV Auto (RBC) [Entitic vol] Ordered By: Yordan Batres on 03-11-2022 MCV (RBC) [Entitic vol] 88.8 fL 80-100 [facility] Monocytes Auto (Bld) [#/Vol] Ordered By: Yordan Batres on 03-11-2022 Monocytes (Bld) [#/Vol] 0.5 10*3/uL 0.0-0.8 [facility] Monocytes/100 WBC Auto (Bld) Ordered By: Yordan Batres on 03-11-2022 Monocytes/100 WBC (Bld) 7.0 % . [facility] Neutrophils Auto (Bld) [#/Vo l]Ordered By: Yordan Batres on 03-11-2022 Neutrophils (Bld) [#/Vol] 5.0 10*3/uL 1.8-7.7 [facility] Neutrophils/100 WBC Auto (Bl d)Ordered By: Yordan Batres on 03-11-2022 Neutrophils/100 WBC (Bld) 69.2 % . [facility] No Panel InformationOrdered By: Yordan Batres on 03-11-2022 Estimated GFR () > 60 mL/Min [facility] Comment on above: GFR estimated refere nce range: According to KDOQI guidelines, <60 ml/min/1.73m2 is sufficient to diagnose a patient with chronic kidney disease. Pharmacy Creatinine Clearance (Chem N/A [facility] Nucleated erythrocytes [Pres ence] in Blood by Automated countOrdered By: Yordan Batres on 03-11-2022 Nucleated RBC Auto Ql (Bld) 0.2 /100{WBC} 0-0.5 [facility] Platelet mean volume Auto (B ld) [Entitic vol]Ordered By: Yordan Batres on 03-11-2022 Platelet mean volume (Bld) [Entitic vol] 7.6 fL 6.3-10.7 [facility] Platelets Auto (Bld) [#/Vol] Ordered By: Yordan Batres on 03-11-2022 Platelets (Bld) [#/Vol] 212 10*3/uL 150-450 [facility] RBC Auto (Bld) [#/Vol]Ordere d By: Yordan Batres on 03-11-2022 RBC (Bld) [#/Vol] 4.44 10*6/uL 3.60-5.00 [facility] Serum or plasma anion gap de terminationOrdered By: Yordan Batres on 03-11-2022 Anion gap [Moles/Vol] 11.2 mmol/L 6.0-15.0 [facility] Serum or plasma calcium yaz urement (mass/volume)Ordered By: Yordan Batres on 03-11-2022 Calcium [Mass/Vol] 9.2 mg/dL 8.2-10.2 [facility] Serum or plasma chloride ady surement (moles/volume)Ordered By: Yordan Batres on 03-11-2022 Chloride [Moles/Vol] 102 mmol/L 95-114 [facility] Serum or plasma glucose yaz urement (mass/volume)Ordered By: Yordan Batres on 03-11-2022 Glucose [Mass/Vol] 99 mg/dL 70-100 [facility] Comment on above: ADA recommended refe rence rangeRandom Glucose Reference Range is dependent on time and content of last meal. Glucose of more than 200 mg/dL in a nonstressed, ambulatory subject supports the diagnosis of Diabetes Mellitus. Serum or plasma potassium me asurement (moles/volume)Ordered By: Yordan Batres on 03-11-2022 Potassium [Moles/Vol] 4.2 mmol/L 3.5-5.1 [facility] Serum or plasma sodium measu rement (moles/volume)Ordered By: Yordan Batres on 03-11-2022 Sodium [Moles/Vol] 136 mmol/L 136-146 [facility] Serum or plasma total carbon dioxide measurement (moles/volume)Ordered By: Yordan Batres on 03-11-2022 CO2 [Moles/Vol] 27.0 mmol/L 22.0-30.0 [facility] Serum or plasma urea nitroge n measurement (mass/volume)Ordered By: Yordan Batres on 03-11-2022 Urea nitrogen [Mass/Vol] 10 mg/dL 9-23 [facility] WBC Auto (Bld) [#/Vol]Ordere d By: Yordan Batres on 03-11-2022 WBC (Bld) [#/Vol] 7.3 10*3/uL 3.8-11.6 [facility] XR chest 2V*on 03-11-2022 XR chest 2V* [facility] Main [address] [address] XRay Report Signed Patient: Claudette Ross MR#: [id number] : 1955 Acct:[id number] Age/Sex: 66 / F ADM Date: 03/11/22 Loc: XD Room: Type: [facility] Attending Dr: Yordan Batres DPElizabeth Copies to: Yordan Batres DPM Ordering Provider: Yordan Batres DPM Date of Service: 03/11/22 XR/XR chest [...] Carmela Carlos M.D.03/11/2022 2:29 PM Dictation Location: [place] [address] Transcribed By: [facility] 03/11/22 1429 Dictated By: Carmela Carlos MD 03/11/22 1428 Signed By: 03/11/22 1429 Normal [facility] LIPID PROFILEon 08-09-2021 CHOL-HDL RATIO NORM SEE BELOW Normal [facility] Comment on above: Result Comment: 3.3 - 4.4 LOW RISK 4.4 - 7.1 AVERAGE RISK 7.1 - 11.0 MODERATE RISK >11.0 HIGH RISK Performed By: #### L IPID, AST, ALT #### [facility] [address] [address] [address] Dedrick Kinsey Cholesterol [Mass/Vol] 195 mg/dL Normal <=200 [facility] Comment on above: Performed By: #### L IPID, AST, ALT #### [facility] [address] [address] [address] Dedrick Kinsey Cholesterol in HDL [Mass/Vol] 47 mg/dL Normal 40-60 [facility] Comment on above: Performed By: #### L IPID, AST, ALT #### [facility] [address] [address] [address] Dedrick Kinsey Cholesterol in LDL [Mass/Vol] 130.0 mg/dL Normal [facility] Comment on above: Performed By: #### L IPID, AST, ALT #### [facility] [address] [place] [address] Dr. Dedrick Kinsey Cholesterol.total/Cho lesterol in HDL [Mass ratio] 4.1 {ratio} Normal [facility] Comment on above: Performed By: #### L IPID, AST, ALT #### [facility] [address] [address] [address] Dedrick Kinsey HDL NORMAL > or = 60 mg/dl - LO W CARDIOVASCULAR RISK <40 mg/dl - HIGH CARDIOVASCULAR RISK Normal [facility] Comment on above: Performed By: #### L IPID, AST, ALT #### [facility] [address] [place] [address] Dr. Dedrick Kinsey LDL CALC NORMAL SEE BELOW Normal [facility] Comment on above: Result Comment: <100 mg/dl OPTIMAL 100 - 129 mg/dl NEAR OR ABOVE OPTIMAL 130 - 159 mg/dl BORDERLINE HIGH 160 - 189 mg/dl HIGH >190 mg/dl VERY HIGH Performed By: #### L IPID, AST, ALT #### [facility] [address] [address] [address] Dedrick Kinsey Triglyceride [Mass/Vol] 90 mg/dL Normal <=150 [facility] Comment on above: Performed By: #### L IPID, AST, ALT #### [facility] [address] [address] [address] Dedrick Kinsey VLDL CALC 18.0 mg/dL Normal [facility] Comment on above: Performed By: #### L IPID, AST, ALT #### [facility] [address] [place], [place] [address] Dr. Dedrick Strange 08-09-2021 AST [Catalytic activity/Vol] 16 U/L Normal 15-37 [facility] Comment on above: Performed By: #### L IPID, AST, ALT #### [facility] [address] [place], [place] [address] [facility] 08-09-2021 ALT [Catalytic activity/Vol] 26 U/L Normal 14-59 [facility] Comment on above: Performed By: #### L IPID, AST, ALT #### [facility] [address] [place], [place] [address] Dr. Dedrick Kinsey MG MAMM SCREEN 3D GERARD CADon 06-24-2021 MG MAMM SCREEN 3D GERARD CAD Patient: CLAUDETTE ROSS Exam Date: 06/24/2021 : 1955 Gender:F Ordering : [facility] Admission #: [id number] Family : Order #: [id number] CLICK HERE TO VIEW EXAM RADIOLOGY REPORT [...] pancreatic cancer at age 58. LOCATION: [facility] BREAST COMPOSITION: Scattered areas fibroglandular density. FINDINGS: [...] LUMP SHOULD BE BIOPSIED. Dictated by: Jackelin Tamayo MD on 06/24/2021 at 11:38 Approved by: Jackelin Tamayo MD on 06/24/2021 at 11:40 Normal [facility] XR DEXA BONE DENSITYon 06-24 XR DEXA BONE DENSITY DEXA Bone Density Maik leetanya CLINICAL: Evaluate bone mineral density. Postmenopausal COMPARISON: None FINDINGS: The bone density study was assessed by dual-energy x-ray absorptiometry with the [employer] scanner. The test results are expressed in [...] + fragility fractures). Electronically authenticated by: JACKELIN BATRES Date: 2021-06-24 11:38 Normal [facility] XR Chest 2 Viewson 2 XR [...] Electronically Signed in Other Vendor System) Normal [facility] .eGFRon 01-26-2021 eGFR Non-AA >60 Normal >=60 [facility] Comment on above: Order Comment: Order [...] years Performed By: #### E GFR #### [place] [address] eGFR AA >60 Normal >=60 [facility] Comment on above: Order Comment: Order added by Discern rule Result Comment: See comment. Performed By: #### E GFR #### [place] [address] AMI Initon 01-26-2021 Initial Myoglobin 35.8 ng/mL Normal 14.3-65.8 [facility] Comment on above: Performed By: #### A MI1 #### [place] [address] Initial Troponin <0.03 Normal 0.00-0.03 [facility] Comment on above: Result Comment: An i ncreased Troponin-I value, in the absence of myocardial ischemia, may indicate other etiologies of cardiac damage. Performed By: #### A MI1 #### [place] [address] CBC w/ Diffon 01-26-2021 Erythrocyte distribution width (RBC) [Ratio] 13.1 % Normal 11.6-14.8 [facility] Comment on above: Performed By: #### C BC #### [place] [address] Hematocrit (Bld) [Volume fraction] 37.4 % Normal 36.0-46.0 [facility] Comment on above: Performed By: #### C BC #### [place] [address] Hemoglobin (Bld) [Mass/Vol] 13.1 g/dL Normal 12.0-16.0 [facility] Comment on above: Performed By: #### C BC #### [place] [address] MCH (RBC) [Entitic mass] 30.2 pg Normal 27.0-35.0 [facility] Comment on above: Performed By: #### C BC #### [place] [address] MCHC 35.0 % Normal 31.0-37.0 [facility] Comment on above: Performed By: #### C BC #### [place] [address] MCV (RBC) [Entitic vol] 86.2 fL Normal 80.0-100.0 [facility] Comment on above: Performed By: #### C BC #### [place] [address] Platelet 196 x10*3/mcL Normal 150-350 [facility] Comment on above: Performed By: #### C BC #### [place] [address] Platelet mean volume (Bld) [Entitic vol] 7.4 fL Low 7.5-11.5 [facility] Comment on above: Performed By: #### C BC #### [place] [address] RBC 4.34 x10*6/mcL Normal 3.80-5.20 [facility] Comment on above: Performed By: #### C BC #### [place] [address] WBC 5.0 x10*3/mcL Normal 4.5-11.0 [facility] Comment on above: Performed By: #### C BC #### [place] [address] CMPon 01-26-2021 Albumin [Mass/Vol] 3.6 g/dL Low 3.7-5.3 [facility] Comment on above: Performed By: #### C OMP #### [place] [address] Albumin/Globulin [Mass ratio] 1.2 {ratio} Normal 1.1-2.2 [facility] Comment on above: Performed By: #### C OMP #### [place] [address] Alk Phos 68 IU/L Normal 34-104 [facility] Comment on above: Performed By: #### C OMP #### [place] [address] ALT [Catalytic activity/Vol] 21 U/L Normal 7-52 [facility] Comment on above: Performed By: #### C OMP #### [place] [address] Anion gap [Moles/Vol] 11 mmol/L Normal 7-17 [facility] Comment on above: Performed By: #### C OMP #### [place] [address] AST [Catalytic activity/Vol] 19 U/L Normal 13-39 [facility] Comment on above: Performed By: #### C OMP #### [place] [address] Bili Total 0.8 mg/dL Normal 0.3-1.0 [facility] Comment on above: Performed By: #### C OMP #### [place] [address] Calcium [Mass/Vol] 8.9 mg/dL Normal 8.6-10.3 [facility] Comment on above: Performed By: #### C OMP #### [place] [address] Chloride 105 IU/L Normal 98-107 [facility] Comment on above: Performed By: #### C OMP #### [place] [address] CO2 [Moles/Vol] 27 mmol/L Normal 21-31 [facility] Comment on above: Performed By: #### C OMP #### [place] [address] Creatinine [Mass/Vol] 0.7 mg/dL Normal 0.6-1.2 [facility] Comment on above: Performed By: #### C OMP #### [place] [address] Glucose [Mass/Vol] 105 mg/dL High 70-99 [facility] Comment on above: Performed By: #### C OMP #### [place] [address] Potassium [Moles/Vol] 3.4 mmol/L Normal 3.4-4.8 [facility] Comment on above: Performed By: #### C OMP #### [place] [address] Protein [Mass/Vol] 6.6 g/dL Normal 6.0-8.3 [facility] Comment on above: Performed By: #### C OMP #### [place] [address] Sodium [Moles/Vol] 140 mmol/L Normal 136-145 [facility] Comment on above: Performed By: #### C OMP #### [place] [address] Urea nitrogen [Mass/Vol] 10 mg/dL Normal 7-25 [facility] Comment on above: Performed By: #### C OMP #### [place] [address] Urea nitrogen/Creatinine [Mass ratio] 14.3 mg/mg Normal 10.0-20.0 [facility] Comment on above: Performed By: #### C OMP #### [place] [address] COV19 Rapidon 01-26-2021 Employed in healthcare? No Normal [facility] Comment on above: Performed By: #### C [id number] #### [place] [address] Group care resident? No Normal [facility] Comment on above: Performed By: #### C [id number] #### [place] [address] In ICU? No Normal [facility] Comment on above: Performed By: #### C [id number] #### [place] [address] status? Not [facility] Comment on above: Performed By: #### C [id number] #### [address] [address] Reason for Rapid Test COVID Exposure Normal [facility] Comment on above: Performed By: #### C [id number] #### [address] [address] SARS-CoV-2 (COVID-19) RNA JAYY+probe Ql (Unsp spec) Positive Critically abnormal Negative [facility] Comment on above: Result Comment: Test completion time: 155 Called date and time: 01/26/2021 15:54:14 EST Result called to and read back by: LINDA SALAS RN, [facility] (First, Last, Title, Location) The [...] using the ID NOW COVID-19 test by [employer], which has received Emergency Use Authorization (EUA) [...] following links: Fact Sheet for HealthCare Providers: https://www.fda.gov/media/499562/download Fact Sheet for Patients: https://www.fda.gov/media/360345/download Performed By: #### C D:[id number] #### [address] [address] SARS-CoV-2 (COVID-19) RNA JAYY+probe Ql (Unsp spec) No Normal [facility] Comment on above: Performed By: #### C [id number] #### [place] [address] Symptomatic as defined by CDC? Yes Normal [facility] Comment on above: Performed By: #### C [id number] #### [place] [address] Diff Autoon 01-26-2021 Baso Absolute 0.0 x10*3/mcL Normal 0.0-0.2 [facility] Comment on above: Performed By: #### . Automated Diff #### [place] [address] Basophils/100 WBC (Bld) 0.4 % Normal 0.0-1.5 [facility] Comment on above: Performed By: #### . Automated Diff #### [place] [address] Eos Absolute 0.1 x10*3/mcL Normal 0.0-0.4 [facility] Comment on above: Performed By: #### . Automated Diff #### [place] [address] Eosinophils/100 WBC (Bld) 1.3 % Normal 0.0-5.4 [facility] Comment on above: Performed By: #### . Automated Diff #### [place] [address] Lymph Absolute 1.0 x10*3/mcL Normal 1.0-4.8 [facility] Comment on above: Performed By: #### . Automated Diff #### [place] [address] Lymphocytes/100 WBC (Bld) 19.2 % Low 27.2-40.8 [facility] Comment on above: Performed By: #### . Automated Diff #### [place] [address] Major Absolute 0.6 x10*3/mcL Normal 0.1-1.1 [facility] Comment on above: Performed By: #### . Automated Diff #### [place] [address] Monocytes/100 WBC (Bld) 12.4 % High 3.7-11.9 [facility] Comment on above: Performed By: #### . Automated Diff #### [place] [address] Neutro Absolute 3.3 x10*3/mcL Normal 1.8-7.7 [facility] Comment on above: Performed By: #### . Automated Diff #### [place] [address] Neutro Auto 66.7 % Normal 47.2-70.8 [facility] Comment on above: Performed By: #### . Automated Diff #### [place] [address] ED Clinical Summaryon 2020 ED Clinical Summary (Inserted Image. Polina ble to display) [place] [address] ED Clinical Summary Person Information Name: Claudette Ross/[facility] Age: 65 Years : 1955 Sex: Female PCP: Nidhi Michaels MD Marital Status: Single Phone: Race: White Ethnicity: Not or Language: [place] Visit Reason: Chest pain; Chest pain - Cardiac Acuity: 3 Enc Type: Emergency Med Service: Emergency Medicine Arrival: 01/26/2021 13:48:22 Discharge: 01/26/2021 17:06:00 LOS: 000 03:18 Checkin: 01/26/2021 13:48:22 Checkout: 01/26/2021 17:06:00 Dispo Type: Home or Self Care Address: [address] [place] [address] Provider Notes: Diagnosis: 1:Pneumonia due to COVID-19 [...] range between ( 27.2 and 40.8 ) Major Auto: 12.4 % -- Normal range between [...] range between ( 36.0 and 46.0 ) Major Absolute: 0.6 x10 MCH: 30.2 pg -- [...] This Visit Final Med List: New Medications [facility]/pharmacy #[id number], [address], [place] [id number], [phone] hydrocodone-acetaminophen ([place] 5 mg-325 mg oral tablet) 1 Tabs [...] mouth) 2 times a day. Last Dose: [facility]/pharmacy #[id number], [address], [place] [id number], [phone] hydrocodone-acetaminophen ([place] 5 mg-325 mg oral tablet) 1 Tabs Oral (given by mouth) every 4 hours as needed for pain for 3 Days. Refills: 0. predniSONE (predniSONE 10 mg oral tablet) 6-5-4-3-2-1. Refills: 0. Other Medications benzonatate (Tessalon Perles) Oral (given by mouth) 3 times a day. sertraline (Zoloft) 100 Milligram Oral (given by mouth) 2 times a day. Care Team Members: Attending Physician: Slick Tariq MD Consulting Physician: Referring Physician: Provider Role Assigned Unassigned Chandni (more content not included)... Normal [facility] ED Note-Physicianon 01-27-20 ED Note-Physician Chief [...] tabs, 0 Refill(s), 01/29/21 17:00:00 EST, Pharmacy: [facility]/pharmacy #[id number] 2. Acute chest wall pain Ordered: hydrocodone-acetaminophen, 1 tabs, Oral, q4hr, PRN, X 3 days, # 18 tabs, 0 Refill(s), 01/29/21 17:00:00 EST, [id number] Orders: predniSONE, See Instructions, 6-5-4-3-2-1, # 21 tabs, 0 Refill(s), [id number] - ED Professional Level 4 Discharge Patient Refresh vitals and sections below: Problem List/Past Medical History Ongoing Depression Hypertension Hypothyroid Historical No qualifying data Procedure/Surgical History Elbow Foot Hysterectomy Neck Medications Inpatient No active inpatient medications Home [place] 5 mg-325 mg oral tablet, 1 tabs, [...] 66.7 Lymph Auto 01/26/21 14:14 19.2 Low Major Auto 01/26/21 14:14 12.4 High Eos Auto 01/26/21 14:14 1.3 Basophil Auto 01/26/21 14:14 0.4 Neutro Absolute 01/26/21 14:14 3.3 Lymph Absolute 01/26/21 14:14 1.0 Major Absolute 01/26/21 14:14 0.6 Eos Absolute 01/26/21 14:14 0.1 Baso Absolute 01/26/21 14:14 0.0 Routine Chemistry LATEST RESULTS Sodium Lvl 01/26/21 14:14 140 Potassium Lvl 01/26/21 14:14 3.4 Chloride 01/26/21 14:14 105 CO2 01/26/21 14:14 27 Anion Gap 01/26/21 14:14 11 Glucose Lvl 01/26/21 14:14 105 High BUN 01/26/21 14: (more content not included)... Normal [facility] TSH reflex Free T4on 021 TSH reflex Free T4 1.935 mcIU/mL Normal 0.490-4. 67 0 [facility] Comment on above: Performed By: #### L 404.9100, L404.7150, L400.0065 #### Main Laboratory ([facility]) [address] [place] [address] Arnulfo Little MD Vitamin B12on 10-27-2020 Cobalamin (Vitamin B12) [Mass/Vol] 135 pg/mL Low 180-914 [facility] Comment on above: Result Comment: B12 level of 145 - 180 is considered Indeterminate and level of <145 is considered Deficient. Performed By: #### L 404.9100, L404.7150, L400.0065 #### Main Laboratory ([facility]) [address] [place] [address] Arnulfo Little MD Vitamin D,25-hydroxy (Total) on 10-27-2020 25(OH) Vitamin D,Total 28.50 ng/mL Low 30.00-100. 00 [facility] Comment on above: Result Comment: Opti mal values are established by the Clinical Guidelines Subcommittee of the Endocrine Society Task Force. (Journal of Clinical Endocrinology & Metabolism,2011;96) Status Vitamin D Concentration Range ------- Deficient <20 Insufficient 20 - 30 Sufficient 30 - 100 Performed By: #### L 404.9100, L404.7150, L400.0065 #### Main Laboratory ([facility]) [address] [place] [address] Arnulfo Little MD Vitamin D,1,25-Dihydroxyon 0 10-21-2020 Vitamin D,1,25-Dihydroxy 74 pg/mL Normal 18-78 [facility] Comment on above: Result Comment: ---- ADDITIONAL INFORMATION This test was developed and its performance characteristics determined by [facility] in a manner consistent with CLIA requirements. This test has not been cleared or approved by the U.S. Food and Drug Administration. Test Performed by: [facility] [address] [place] [address] [employer]: Rakan Kim M.D. Ph.D.; CLIA# [id number] Performed By: #### L 922.1720 #### [facility] [address] [place] [address] CBC with Differentialon 09-21 Abs Baso Count 0 /cmm Normal 0-200 [facility] Comment on above: Performed By: #### L 100.0000 #### Main Laboratory ([facility]) [address] [place] [address] Arnulfo Little MD Abs Eos Count 100 /cmm Normal 0-500 [facility] Comment on above: Performed By: #### L 100.0000 #### Main Laboratory ([facility]) [address] [place] [address] Arnulfo Little MD Abs Lymph Count 1500 /cmm Normal 3242-7348 [facility] Comment on above: Performed By: #### L 100.0000 #### Main Laboratory ([facility]) [address] [place] [address] Arnulfo Little MD Abs Major Count 400 /cmm Normal 0-800 [facility] Comment on above: Performed By: #### L 100.0000 #### Main Laboratory ([facility]) [address] [place] [address] Arnulfo Little MD Abs Neut Count 3900 /cmm Normal 9545-1083 [facility] Comment on above: Performed By: #### L 100.0000 #### Main Laboratory ([facility]) [address] [place] [address] Arnulfo Little MD Basophils/100 WBC (Bld) 0.5 % Normal 0-2 [facility] Comment on above: Performed By: #### L 100.0000 #### Main Laboratory ([facility]) [address] [place] [address] Arnulfo Little MD EOS-Auto Diff 1.5 % Normal 0-6 [facility] Comment on above: Performed By: #### L 100.0000 #### Main Laboratory ([facility]) [address] [place] [address] Arnulfo Little MD Erythrocyte distribution width (RBC) [Ratio] 13.7 % Normal 12.0-16.0 [facility] Comment on above: Performed By: #### L 100.0000 #### Main Laboratory ([facility]) [address] [place] [address] Arnulfo Little MD Hematocrit (Bld) [Volume fraction] 39.3 % Normal 35.0-44.0 [facility] Comment on above: Performed By: #### L 100.0000 #### Main Laboratory ([facility]) [address] [place] [address] Arnulfo Little MD Hemoglobin (Bld) [Mass/Vol] 13.7 g/dL Normal 12.0-15.0 [facility] Comment on above: Performed By: #### L 100.0000 #### Main Laboratory ([facility]) [address] [place] [address] Arnulfo Little MD Lymphocytes/100 WBC (Bld) 25.3 % Normal 15-45 [facility] Comment on above: Performed By: #### L 100.0000 #### Main Laboratory ([facility]) [address] [place] [address] Arnulfo Little MD MCH (RBC) [Entitic mass] 30.9 pg Normal 27.5-33.0 [facility] Comment on above: Performed By: #### L 100.0000 #### Main Laboratory ([facility]) [address] [place], [place] [address] Arnulfo Little MD MCHC (RBC) [Mass/Vol] 34.9 g/dL Normal 33.0-36.0 [facility] Comment on above: Performed By: #### L 100.0000 #### Main Laboratory ([facility]) [address] [place], [place] [address] Arnulfo Little MD MCV 88.6 CU JAMES Normal 80-97 [facility] Comment on above: Performed By: #### L 100.0000 #### Main Laboratory ([facility]) [address] [place], [place] [address] Arnulfo Little MD Major- Auto Diff 6.8 % Normal 2-10 [facility] Comment on above: Performed By: #### L 100.0000 #### Main Laboratory ([facility]) [address] [place], [place] [address] Arnulfo Little MD Neut-Auto Diff 65.9 % Normal 40-70 [facility] Comment on above: Performed By: #### L 100.0000 #### Main Laboratory ([facility]) [address] [place], [place] [address] Arnulfo Little MD NRBC-Auto 0.1 /100 WBC Normal <1 [facility] Comment on above: Performed By: #### L 100.0000 #### Main Laboratory ([facility]) [address] [place], [place] [address] Arnulfo Little MD Platelet Count 201 th/cmm Normal 150-400 [facility] Comment on above: Performed By: #### L 100.0000 #### Main Laboratory ([facility]) [address] [place], [place] [address] Arnulfo Little MD RBC 4.44 mil/cmm Normal 4.00-5.10 [facility] Comment on above: Performed By: #### L 100.0000 #### Main Laboratory ([facility]) [address] [place] [address] Arnulfo Little MD WBC 5.9 th/cmm Normal 4.4-10.5 [facility] Comment on above: Performed By: #### L 100.0000 #### Main Laboratory ([facility]) [address] [place] [address] Arnulfo Little MD Comprehensive Metabolic Pane sandeep 10-16-2020 Albumin [Mass/Vol] 3.9 g/dL Normal 3.5-5.0 [facility] Comment on above: Order Comment: Is Pa tient Fasting? Yes Performed By: #### L 400.0076, L400.0400 #### Main Laboratory ([facility]) [address] [place] [address] Arnulfo Little MD Albumin/Globulin [Mass ratio] 1.3 {ratio} Low 1.5-2.5 [facility] Comment on above: Order Comment: Is Pa tient Fasting? Yes Performed By: #### L 400.0076, L400.0400 #### Main Laboratory ([facility]) [address] [place] [address] Arnulfo Little MD Alk Phos 83 IU/L Normal 39-118 [facility] Comment on above: Order Comment: Is Pa tient Fasting? Yes Performed By: #### L 400.0076, L400.0400 #### Main Laboratory ([facility]) [address] [place] [address] Arnulfo Little MD ALT [Catalytic activity/Vol] 16 U/L Normal 10-40 [facility] Comment on above: Order Comment: Is Pa tient Fasting? Yes Performed By: #### L 400.0076, L400.0400 #### Main Laboratory ([facility]) [address] [place] [address] Arnulfo Little MD Anion gap [Moles/Vol] 8 mmol/L Normal 4-12 [facility] Comment on above: Order Comment: Is Pa tient Fasting? Yes Performed By: #### L 400.0076, L400.0400 #### Main Laboratory ([facility]) [address] [place] [address] Arnulfo Little MD AST [Catalytic activity/Vol] 15 U/L Normal 15-41 [facility] Comment on above: Order Comment: Is Pa tient Fasting? Yes Performed By: #### L 400.0076, L400.0400 #### Main Laboratory ([facility]) [address] [place] [address] Arunlfo Little MD Bili,Total 0.6 mg/dL Normal 0.2-1.0 [facility] Comment on above: Order Comment: Is Pa tient Fasting? Yes Performed By: #### L 400.0076, L400.0400 #### Main Laboratory ([facility]) [address] [place] [address] Arnulfo Little MD Calcium [Mass/Vol] 9.20 mg/dL Normal 8.8-10.5 [facility] Comment on above: Order Comment: Is Pa tient Fasting? Yes Performed By: #### L 400.0076, L400.0400 #### Main Laboratory ([facility]) [address] [place] [address] Arnulfo Little MD Chloride [Moles/Vol] 105 mmol/L Normal 101-111 [facility] Comment on above: Order Comment: Is Pa tient Fasting? Yes Performed By: #### L 400.0076, L400.0400 #### Main Laboratory ([facility]) [address] [place] [address] Arnulfo Little MD CO2 [Moles/Vol] 29 mmol/L Normal 21-32 [facility] Comment on above: Order Comment: Is Pa tient Fasting? Yes Performed By: #### L 400.0076, L400.0400 #### Main Laboratory ([facility]) [address] [place] [address] Arnulfo Little MD Creatinine [Mass/Vol] 0.85 mg/dL Normal 0.60-1.30 [facility] Comment on above: Order Comment: Is Pa tient Fasting? Yes Performed By: #### L 400.0076, L400.0400 #### Main Laboratory ([facility]) [address] [place] [address] Arnulfo Little MD GFR Calculation > 60 Normal [facility] Comment on above: Order Comment: Is Pa tient Fasting? Yes Result Comment: Recruit Instructor marky Kidney Disease stages by NKDF Stage eGFR I >90 II 60-89 III 30-59 IV 15-29 V <15 or dialysis AGE(years) AVERAGE GFR 60-69 85 ml/min/1.73 square meters Note:This result is normalized to 1.73 square meter body surface area. Height and weight are not factored. Performed By: #### L 400.0076, L400.0400 #### Main Laboratory ([facility]) [address] [place] [address] Arnulfo Little MD Glucose [Mass/Vol] 100 mg/dL Normal 70-110 [facility] Comment on above: Order Comment: Is Pa tient Fasting? Yes Result Comment: *Thi s reference range applies to fasting specimens only. Performed By: #### L 400.0076, L400.0400 #### Main Laboratory ([facility]) [address] [place] [address] Arnulfo Little MD Potassium [Moles/Vol] 3.7 mmol/L Normal 3.6-5.0 [facility] Comment on above: Order Comment: Is Pa tient Fasting? Yes Performed By: #### L 400.0076, L400.0400 #### Main Laboratory ([facility]) [address] [place] [address] Arnulfo Little MD Protein [Mass/Vol] 6.8 g/dL Normal 6.2-8.0 [facility] Comment on above: Order Comment: Is Pa tient Fasting? Yes Performed By: #### L 400.0076, L400.0400 #### Main Laboratory ([facility]) [address] [place] [address] Arnulfo Little MD Sodium [Moles/Vol] 142 mmol/L Normal 135-145 [facility] Comment on above: Order Comment: Is Pa tient Fasting? Yes Performed By: #### L 400.0076, L400.0400 #### Main Laboratory ([facility]) [address] [place] [address] Arnulfo Little MD Urea nitrogen [Mass/Vol] 10 mg/dL Normal 7-20 [facility] Comment on above: Order Comment: Is Pa tient Fasting? Yes Performed By: #### L 400.0076, L400.0400 #### Main Laboratory ([facility]) [address] [place] [id number] Arnulfo Little MD Lipid Panelon 10-16-2020 Chol/HDL Risk 4.0 Normal 4.0-4.4 [facility] Comment on above: Order Comment: Is Pa tient Fasting? Yes Performed By: #### L 400.0076, L400.0400 #### Main Laboratory ([facility]) [address] [place] [address] Arnulfo Little MD Cholesterol [Mass/Vol] 160 mg/dL Normal <200 [facility] Comment on above: Order Comment: Is Pa tient Fasting? Yes Performed By: #### L 400.0076, L400.0400 #### Main Laboratory ([facility]) [address] [place] [address] Arnulfo Little MD Cholesterol in HDL [Mass/Vol] 40 mg/dL Normal [facility] Comment on above: Order Comment: Is Pa tient Fasting? Yes Result Comment: The National Cholesterol Education Program (NCEP) has set the following guidelines (reference values) for cholesterol, HDL: Low: <40 mg/dL Normal: 40-60 mg/dL High: >60 mg/dL Performed By: #### L 400.0076, L400.0400 #### Main Laboratory ([facility]) [address] [place] [id number] Arnulfo Little MD Cholesterol in LDL [Mass/Vol] 104 mg/dL High [facility] Comment on above: Order Comment: Is Pa tient Fasting? Yes Result Comment: The National Cholesterol Education Program (NCEP) has set the following guidelines (reference values) for cholesterol, LDL: Desirable (optimal): <100 mg/dL Low Risk (near optimal): 100-129 mg/dL Borderline high: 130-159 mg/dL High: 160-189 mg/dL Very high: >=190 mg/dL Performed By: #### L 400.0076, L400.0400 #### Main Laboratory ([facility]) [address] [place] [address] Arnulfo Little MD Cholesterol in VLDL [Mass/Vol] 20 mg/dL Normal <39 [facility] Comment on above: Order Comment: Is Pa tient Fasting? Yes Performed By: #### L 400.0076, L400.0400 #### Main Laboratory ([facility]) [address] [place] [address] Arnulfo Little MD dLDL/HDL RISK 2.6 Normal <3.1 [facility] Comment on above: Order Comment: Is Pa tient Fasting? Yes Performed By: #### L 400.0076, L400.0400 #### Main Laboratory ([facility]) [address] [place] [address] Arnulfo Little MD Triglyceride [Mass/Vol] 102 mg/dL Normal <150 [facility] Comment on above: Order Comment: Is Pa tient Fasting? Yes Performed By: #### L 400.0076, L400.0400 #### Main Laboratory ([facility]) [address] [place] [address] Arnulfo Little MD BASIC METABOLIC PANELon 02-20 Calcium [Mass/Vol] 8.8 mg/dL Normal 8.6-10.3 [facility] Comment on above: Order Comment: No: D o not add to previous draw Performed By: #### 3 5200, 92014, 30161, 38834 #### [facility] [address] [place] [address], [place] Chloride [Moles/Vol] 106 mmol/L Normal 98-107 [facility] Comment on above: Order Comment: No: D o not add to previous draw Performed By: #### 3 5200, 18386, 56687, 45350 #### [facility] [address] [place] [address], [place] CO2 [Moles/Vol] 30 mmol/L Normal 21-31 [facility] Comment on above: Order Comment: No: D o not add to previous draw Performed By: #### 3 5200, 90717, 76609, 86848 #### [facility] [address] [place] [address], [place] Creatinine [Mass/Vol] 0.80 mg/dL Normal 0.60-1.20 [facility] Comment on above: Order Comment: No: D o not add to previous draw Performed By: #### 3 5200, 99635, 33072, 18584 #### [facility] [address] [place] [address], [place] GFR/1.73 sq M predicted among blacks MDRD (S/P/Bld) [Vol rate/Area] mL/min/{1.73_m2} Normal >60 [facility] Comment on above: Order Comment: No: D o not add to previous draw Performed By: #### 3 5200, 90783, 93660, 23637 #### [facility] [address] [place] [address], [place] GFR/1.73 sq M predicted among non-blacks MDRD (S/P/Bld) [Vol rate/Area] mL/min/{1.73_m2} Normal >60 [facility] Comment on above: Order Comment: No: D o not add to previous draw Performed By: #### 3 5200, 35412, 06938, 94666 #### [facility] [address] [place] [address], [place] Glucose [Mass/Vol] 102 mg/dL High 70-100 [facility] Comment on above: Order Comment: No: D o not add to previous draw Performed By: #### 3 5200, 47064, 20501, 24413 #### [facility] [address] [place] [address], [place] Potassium [Moles/Vol] 3.9 mmol/L Normal 3.5-5.1 [facility] Comment on above: Order Comment: No: D o not add to previous draw Performed By: #### 3 5200, 31831, 78441, 05527 #### [facility] [address] [place] [address], [place] Sodium [Moles/Vol] 140 mmol/L Normal 136-145 [facility] Comment on above: Order Comment: No: D o not add to previous draw Performed By: #### 3 5200, 29919, 78180, 68775 #### [facility] [address] [place] [address], [place] Urea nitrogen [Mass/Vol] 12 mg/dL Normal 7-25 [facility] Comment on above: Order Comment: No: D o not add to previous draw Performed By: #### 3 5200, 16074, 33362, 35310 #### [facility] [address] [place] [address], [place] CBC COMPLETE BLOOD COUNTon 0 1-15 Erythrocyte distribution width (RBC) [Ratio] 13.2 % Normal 11.5-15.0 [facility] Comment on above: Order Comment: No: D o not add to previous draw Performed By: #### 5 0608 #### [facility] [address] [place] [address], [facility] Hematocrit (Bld) [Volume fraction] 38.1 % Normal 36.0-45.0 [facility] Comment on above: Order Comment: No: D o not add to previous draw Performed By: #### 5 0608 #### [facility] [address] [place] [address], [facility] Hemoglobin (Bld) [Mass/Vol] 12.2 g/dL Normal 12.0-15.0 [facility] Comment on above: Order Comment: No: D o not add to previous draw Performed By: #### 5 0608 #### [facility] [address] [place] [address], [facility] MCH (RBC) [Entitic mass] 29.5 pg Normal 27.0-33.0 [facility] Comment on above: Order Comment: No: D o not add to previous draw Performed By: #### 5 0608 #### [facility] [address] [place] [address], [facility] MCHC (RBC) [Mass/Vol] 32.0 g/dL Normal 32.0-35.0 [facility] Comment on above: Order Comment: No: D o not add to previous draw Performed By: #### 5 0608 #### [facility] [address] [facility] [place] [address], [facility] MCV (RBC) [Entitic vol] 92.0 fL Normal 82.0-98.0 [facility] Comment on above: Order Comment: No: D o not add to previous draw Performed By: #### 5 0608 #### [facility] [address] [place] [address], [facility] Nucleated RBC/100 WBC (Bld) [Ratio] 0 % Normal 0-0 [facility] Comment on above: Order Comment: No: D o not add to previous draw Performed By: #### 5 0608 #### [facility] [address] [place] [address], [facility] PLAT CNT 159 10*3/uL Normal 150-400 [facility] Comment on above: Order Comment: No: D o not add to previous draw Performed By: #### 5 0608 #### [facility] [address] [place] [address], [facility] RBC (Bld) [#/Vol] 4.14 10*6/uL Normal 3.80-5.00 [facility] Comment on above: Order Comment: No: D o not add to previous draw Performed By: #### 5 0608 #### [facility] [address] [place] [id number], [facility] WBC (Bld) [#/Vol] 6.23 10*3/uL Normal 4.00-10.60 [facility] Comment on above: Order Comment: No: D o not add to previous draw Performed By: #### 5 0608 #### [facility] [address] [place] [address], [facility] LIPID PROFILEon 03-06-2019 Cholesterol [Mass/Vol] 151 mg/dL Normal 120-200 [facility] Comment on above: Order Comment: No: D o not add to previous draw Result Comment: CHOL ESTEROL REFERENCE RANGE: 20 YEARS AND OLDER CARDIOVASCULAR RISK Less than 200 mg/dl Low Risk 200 to 239 mg/dl Borderline Risk 240 mg/dl and greater High Risk Performed By: #### 4 6413, 54417 #### [facility] [address] [place] [id number], [facility] Cholesterol in HDL [Mass/Vol] 39 mg/dL Normal 23-92 [facility] Comment on above: Order Comment: No: D o not add to previous draw Result Comment: Slig ht variation in normal range could be due to gender and/or age. HDL CHOLESTEROL REFERENCE RANGE: 20 years and older Cardiovascular Risk > or =60 mg/dL Desirable 40 TO 59 mg/dL Low Risk <40 mg/dL High Risk Performed By: #### 4 9913, 31536 #### [facility] [address] [place] [address], [facility] Cholesterol in LDL [Mass/Vol] 90 mg/dL Normal 0-130 [facility] Comment on above: Order Comment: No: D o not add to previous draw Result Comment: LDL IS A CALCULATION LDL IS ONLY VALID IF THE TRIG IS LESS THAN 400. Performed By: #### 4 6413, 14044 #### [facility] [address] [place] [address], [facility] Cholesterol.total/Cho lesterol in HDL [Mass ratio] 3.9 {ratio} Normal 0.0-4.5 [facility] Comment on above: Order Comment: No: D o not add to previous draw Performed By: #### 4 6413, 50490 #### [facility] [address] NON-HDL CHOLESTEROL 112 mg/dL Normal [facility] Comment on above: Order Comment: No: D o not add to previous draw Performed By: #### 4 2913, 35964 #### [facility] [address] [place] [address], [facility] Triglyceride [Mass/Vol] 110 mg/dL Normal 40-149 [facility] Comment on above: Order Comment: No: D o not add to previous draw Result Comment: TRIG LYCERIDE REFERENCE RANGE: 20 YEARS AND OLDER CARDIOVASCULAR RISK LESS THAN 150 mg/dl LOW RISK 150 TO 199 mg/dl BORDERLINE RISK 200 mg/dl AND GREATER HIGH RISK Performed By: #### 4 6413, 26343 #### [facility] [address] [place] [id number], [facility] VLDL CHOL 22 mg/dL Normal 0-40 [facility] Comment on above: Order Comment: No: D o not add to previous draw Performed By: #### 4 6413, 99825 #### [facility] [address] [place] [address], [facility] BASIC METABOLIC PANELon 01-1 4-2020 Calcium [Mass/Vol] 8.8 mg/dL Normal 8.6-10.3 [facility] Comment on above: Order Comment: No: D o not add to previous draw Performed By: #### 3 5200, 30205, 13996, 86928 #### [facility] [address] [place] [address], [place] Chloride [Moles/Vol] 107 mmol/L Normal 98-107 [facility] Comment on above: Order Comment: No: D o not add to previous draw Performed By: #### 3 5200, 70700, 74900, 23459 #### [facility] [address] [place] [address], [place] CO2 [Moles/Vol] 26 mmol/L Normal 21-31 [facility] Comment on above: Order Comment: No: D o not add to previous draw Performed By: #### 3 5200, 32882, 43193, 36092 #### [facility] [address] [place] [address], [place] Creatinine [Mass/Vol] 0.87 mg/dL Normal 0.60-1.20 [facility] Comment on above: Order Comment: No: D o not add to previous draw Performed By: #### 3 5200, 67547, 04024, 07180 #### [facility] [address] [place] [address], [place] GFR/1.73 sq M predicted among blacks MDRD (S/P/Bld) [Vol rate/Area] mL/min/{1.73_m2} Normal >60 [facility] Comment on above: Order Comment: No: D o not add to previous draw Performed By: #### 3 5200, 60039, 85079, 93039 #### [facility] [address] [place] [address], [place] GFR/1.73 sq M predicted among non-blacks MDRD (S/P/Bld) [Vol rate/Area] mL/min/{1.73_m2} Normal >60 [facility] Comment on above: Order Comment: No: D o not add to previous draw Performed By: #### 3 5200, 00144, 93475, 53609 #### [facility] [address] [place] [address], [place] Glucose [Mass/Vol] 118 mg/dL High 70-100 [facility] Comment on above: Order Comment: No: D o not add to previous draw Performed By: #### 3 5200, 93809, 37777, 81621 #### [facility] [address] [place] [address], [place] Potassium [Moles/Vol] 4.0 mmol/L Normal 3.5-5.1 [facility] Comment on above: Order Comment: No: D o not add to previous draw Performed By: #### 3 5200, 51437, 88451, 04398 #### [facility] [address] [place] [address], [place] Sodium [Moles/Vol] 140 mmol/L Normal 136-145 [facility] Comment on above: Order Comment: No: D o not add to previous draw Performed By: #### 3 5200, 26829, 50400, 23399 #### [facility] [address] [place] [address], [place] Urea nitrogen [Mass/Vol] 13 mg/dL Normal 7-25 [facility] Comment on above: Order Comment: No: D o not add to previous draw Performed By: #### 3 5200, 70387, 16455, 51853 #### [facility] [address] [place] [address], [facility] CBC COMPLETE BLOOD COUNTon 0 1-14-2019 Erythrocyte distribution width (RBC) [Ratio] 13.1 % Normal 11.5-15.0 [facility] Comment on above: Order Comment: No: D o not add to previous draw Performed By: #### 5 0608 #### [facility] [address] [place] [address], [facility] Hematocrit (Bld) [Volume fraction] 36.8 % Normal 36.0-45.0 [facility] Comment on above: Order Comment: No: D o not add to previous draw Performed By: #### 5 0608 #### [facility] [address] [place] [address], [facility] Hemoglobin (Bld) [Mass/Vol] 12.1 g/dL Normal 12.0-15.0 [facility] Comment on above: Order Comment: No: D o not add to previous draw Performed By: #### 5 0608 #### [facility] [address] [facility] [place] [address], [facility] MCH (RBC) [Entitic mass] 29.3 pg Normal 27.0-33.0 [facility] Comment on above: Order Comment: No: D o not add to previous draw Performed By: #### 5 0608 #### [facility] [address] [place] [address], [facility] MCHC (RBC) [Mass/Vol] 32.9 g/dL Normal 32.0-35.0 [facility] Comment on above: Order Comment: No: D o not add to previous draw Performed By: #### 5 0608 #### [facility] [address] [place] [address], [facility] MCV (RBC) [Entitic vol] 89.1 fL Normal 82.0-98.0 [facility] Comment on above: Order Comment: No: D o not add to previous draw Performed By: #### 5 0608 #### [facility] [address] [place] [address], [facility] Nucleated RBC/100 WBC (Bld) [Ratio] 0 % Normal 0-0 [facility] Comment on above: Order Comment: No: D o not add to previous draw Performed By: #### 5 0608 #### [facility] [address] PLAT CNT 164 10*3/uL Normal 150-400 [facility] Comment on above: Order Comment: No: D o not add to previous draw Performed By: #### 5 0608 #### [facility] [address] RBC (Bld) [#/Vol] 4.13 10*6/uL Normal 3.80-5.00 [facility] Comment on above: Order Comment: No: D o not add to previous draw Performed By: #### 5 0608 #### [facility] [address] WBC (Bld) [#/Vol] 6.30 10*3/uL Normal 4.00-10.60 [facility] Comment on above: Order Comment: No: D o not add to previous draw Performed By: #### 5 0608 #### [facility] [address] History and Physicalon 03-05 History and Physical MR#: [id number] [facility] Pt. Name: Claudette Ross Admitted: 03/05/2019 Date of : 1955 Attending Physician: Nitin Gonzalez MD Room #: 3AB [id number] Discharge Date: HISTORY AND PHYSICAL CHIEF COMPLAINT: Chest pain. HISTORY OF PRESENT ILLNESS: This is a 63-year-old female with past medical history significant for hypertension, dyslipidemia, hypothyroidism. 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 She reports that she was sitting on her chair when the episode started. It was 10/10 in intensity, associated with shortness of breath for which she called the EMS who gave her nitroglycerin sublingual, which helped a bit and then she was transferred to [facility]. In [facility], an EKG was done, which was showing no significant changes. Troponin was done, which was negative. The patient was started on nitroglycerin drip. She also had a CT angiogram of the chest, which was negative for pulmonary embolism, but it was positive for a pulmonary nodule and the patient was transferred to [facility] for further evaluation. The patient reports that she still does have 6/10 substernal chest pain but with no shortness of breath at this time. She still feels the pain in her neck. She reports that she never had those episodes recently, but remotely she had similar episodes, but she did not see a strategy execution consultant. She reports that she is compliant with her medication, but she does not recall exactly what medication she takes. PAST MEDICAL HISTORY: Include hypertension, dyslipidemia, hypothyroidism. SOCIAL HISTORY: She reports no history of tobacco use. No use of alcohol. MEDICATIONS: At home from the list from [facility] include Singulair 10 mg per oral daily, [...] Alert and oriented x3. LABORATORY DATA: From [facility] showing hemoglobin of 13, platelets 182, white [...] Gonzalez MD Date Trans: 03/05/2019 10:44 A/drew [id number] Normal [facility] MAGNESIUM BLOODon 03-05-2019 Magnesium [Mass/Vol] 2.2 mg/dL Normal 1.9-2.7 [facility] Comment on above: Order Comment: No: D o not add to previous draw Performed By: #### 3 5200, 01638, 59670, 38556 #### [facility] [address] [facility] [place] [address], [facility] TROPONIN-Ion 03-05-2019 Troponin I.cardiac [Mass/Vol] 0.01 ng/mL Normal 0.00-0.04 [facility] Comment on above: Order Comment: No: D o not add to previous draw Result Comment: REFE RENCE RANGES: 0.00 - 0.04 ng/ml NORMAL 0.05 - 0.50 ng/ml INDETERMINATE > 0.50 ng/ml CONSISTENT WITH AN M.I. Performed By: #### 3 5200 #### [facility] [address] Troponin I.cardiac [Mass/Vol] 0.00 ng/mL Normal 0.00-0.04 [facility] Comment on above: Order Comment: No: D o not add to previous draw Result Comment: REFE RENCE RANGES: 0.00 - 0.14 ng/ml NEGATIVE 0.15 - 0.25 ng/ml INDETERMINATE > 0.25 ng/ml INDICATIVE OF AN M.I. Performed By: #### 3 5200 #### [facility] [address] [facility] [address] Troponin I.cardiac [Mass/Vol] 0.00 ng/mL Normal 0.00-0.04 [facility] Comment on above: Order Comment: No: D o not add to previous draw Result Comment: REFE RENCE RANGES: 0.00 - 0.14 ng/ml NEGATIVE 0.15 - 0.25 ng/ml INDETERMINATE > 0.25 ng/ml INDICATIVE OF AN M.I. Performed By: #### 3 5200, 07117, 39125, 67685 #### [facility] [address] [facility]. [address] TSH3 WITH REFLEXon 0 TSH 3RD GENERATION 2.38 uIU/mL Normal 0.34-5.60 [facility] Comment on above: Performed By: #### 3 5200, 07499, 78299, 06660 #### [facility] [address] [facility]. [address] Intraoperative Noteon 2017 Intraoperative Note [id number]#1.00[facility]operative Note [id number]#[facility] 02-22 History and Physical [id number]#1.00[facility] Provider Orderson 02-22-2017 Provider Orders [id number]#1.00OTGTIFF [facility] Coding Summaryon 01-18-2017 Coding Summary CODING DATE: 017 [facility] STATUS: Home PAYOR: Medicare APC DESCRIPTION 5431 Level 1 Nerve Procedures ADMIT DX: REASON FOR VISIT DX: G56.02 Carpal tunnel syndrome, left upper limb FINAL DX: PRINCIPAL: G56.02 Carpal tunnel syndrome, left upper limb SECONDARY: E78.5 Hyperlipidemia, unspecified I10 Essential (primary) hypertension E03.9 Hypothyroidism, unspecified Z72.0 Tobacco use PYMT PROC APC STAT DESCRIPTION DOCTOR NAME DATE 70737 543 J1 Neuroplasty and/or Conrado Mccoy And [...] Rossana Swan Date Saved: 01/18/2017 07:38 am [facility] Consent Formson 01-17-2017 Consent Forms [id number]#1.00[facility] Anesthesia Noteon 01-16-2017 [facility] Patient: Kolby ROSS : 61 years Sex: FEMALE : [birth year]Associated Diagnoses: NoneAuthor: Rakan Hernandez MDPostoperative InformationAnesthetic utilized: Monitored anesthesia care.AssessmentAnesthetic outcomeNo anesthetic complications noted.PlanTransfer/ Discharge: Patient can be discharged from PACU when criteria met.Condition good.[Electronically Signed on: 01/16/2017 14:17 EST] Rakan Hernandez MD[Verified on: 01/16/2017 14:17 EST] Rakan Hernandez MD [facility] Anesthesia Note Patient: Kolby ROSS : 61 years Sex: FEMALE : [birth year]Associated [...] 50 mg = 1 tab(s), PRN, PO, n7mtCepmudn list (past medical history):All ProblemsHypothyroidism / SNOMED CT 51573961 / ConfirmedCanceled: No Chronic Problems / Cerner NKPHistoriesFamily History:No family history items have been selected or recorded.Procedure history:Carpal tunnel decompression (6905173864) on 12/12/2016 at 61 Years.Cholecystectomy (92832500).Hysterectomy and bilateral salpingo-oophorectomy sample (677708850).Fracture (081982950).Comments: 017 08:10 - Vandana Onofre wristDisc ([id number]).Comments:2016 08:11 - Vandana Onofre elvira and screwsSpur of ankle bone ([id number]).Comments:1 08:12 - Warga, Vandana RNleft footRotator cuff repair ([id number]).Comments: 017 08:12 - Vandana Onofre RNrightSocial History Alcohol Assessment Use: Never. Tobacco Assessment Never (less than 100 in lifetime) Tobacco Use:..Social & Psychosocial HkvzfxBrsvgpq48/20/2017 Alcohol Use: CinnwKuwgryq14/20/2017 Smoking tobacco use: Never (less than 100 [...] 01/16/2017 12:52 EST] Rakan Hernandez MD Normal [facility] Inpatient Clinical Summaryon 01-16-[address] [facility] SURGERYClinical Discharge SummaryPERSON INFORMATIONName CLAUDETTE ROSS Age 61 Years 09/[birth year]/Sex FEMALE Language South Korean PCP Provider, UnlistedMarital Status Single [facility] Acct# Arrival 01/16/17 09:25:18Visit Reason LEFT CARPAL TUNNEL RELEASE Acuity LOS 010 23:07Address:[address] [facility] [address]Lusufca:PROVIDER INFORMATIONVITALS INFORMATIONVital Sign Triage LatestTemp OralTemp TemporalTemp IntravascularTemp AxillaryTemp Qsuvep42 Sat 96 % 95 %Respiratory Rate 16 [...] EDUCATION INFORMATIONInstructions:Juan gonzales- Post Op [facility]Follow up:With: Address: When:Conrado Mccoy [address] [place], [phone] Business (2)Comments:Call for follow up appointmentWith: Address: When:Unlisted ProviderDIAGNOSISCarpal tunnel syndrome on leftComment:PHYS DOC NOTES Normal [facility] Inpatient Patient Summaryon 01-16-2017 Inpatient Patient Summary [address] [place] [address] patient Discharge InstructionsName: CLAUDETTE ROSS ADOB: [birth year] Address: [address] [place] [address] [address] Care Provider:Name: Provider, UnlistedPhone:After you are discharged if you find you have any questions, please, call [phone] ext [phone] to speak to a nurse.Discharge [...] or business decisions or sign any legal documentsMetrohealth [facility] would like to thank you for allowing us to assist you with your healthcare needs. The following includes patient education materials and information regarding your injury/illness.VANDANACLAUDETTE Esmer has been given the following list of follow-up instructions, prescriptions, and patient education materials:Follow-up InstructionsWith: Address: When:Conrado Ontiveros[address], [address] [place], [phone] Business (2)Comments:Call for follow up appointmentWith: Address: [...] while awake-DO NOT lift heavy objects or animation artist forcefully with your hand-Change your dressing in [...] or concerns, please call the office at [phone]-Follow up as scheduledViruses or BacteriaWhat?s got you [...] Antibiotics Beti.[place] Department of Health and Human ServicesBluffton Hospitalers for Disease Control and Prevention October 2013 [facility]R Intraoperative Recordon 01-16-2017 [facility] Intraoperative Record MAGR Intra-Op Record Summary Primary Physician: Conrado Mccoy DO Finalized Date/Time: 01/16/17 15:01:02 Pt. Name: VANDANACLAUDETTE/Sex: 1955 FEMALE Med Rec #: [id number] Physician: Conrado Mccoy DO Financial #: [id number] Pt. Type: D Room/Bed: / Admit/Disch: 01/16/17 [...] Role Performed Surgeon - Primary Anesthesiologist of Clinical Team Lead Record Time In 01/16/17 13:11:00 01/16/17 13:11:00 01/16/17 13:11:00 Time Out 01/16/17 13:44:00 01/16/17 13:44:00 01/16/17 13:44:00 Procedure Carpal Tunnel Carpal Tunnel Carpal Tunnel Release(Left) Release(Left) Release(Left) Last Modified By: Caroline Montgomery RN, Stephanie RN Sauer, Stephanie RN 01/16/17 14:29:30 01/16/17 14:29:30 01/16/17 14:29:30 Entry 4 Entry 5 Case Attendee Paul Alas Linda M Regina STORE TEAM LEADER Role Performed Scrub Personnel House Painting Instructor Time In 01/16/17 13:11:00 01/16/17 13:11:00 Time [...] the Initial Count Performed By Terri Alas STORE TEAM LEADER Initial Count Time 01/16/17 13:10:00 Counts Verification Final Counts Items Included in Sponges, Sharps Final Count Status Correct Final Count Final Counts Caroline Montgomery RN, Final Count Time 01/16/17 13:35:00 Performed By Terri Alas STORE TEAM LEADER Surgeon notified of Yes final counts status [...] Unfinalizing Freetext Reason for Unfinalizing 01/16/17 15:00 [facility]2017 [facility] Postoperative Record MAGR Phase II Record Summary Primary Physician: Conrado Mccoy DO Finalized Date/Time: 01/16/17 15:27:42 Pt. Name: ARPITRODCLAUDETTE D.O.B./Sex: 1955 FEMALE Med Rec #: [id number] Physician: Conrado Mccoy DO Financial #: [id number] Pt. Type: D Room/Bed: / Admit/Disch: 01/16/17 [...] Finalized Date/Time: 01/16/17 13:05:28 Pt. Name: CLAUDETTE ROSS /Sex: 1955 FEMALE Med Rec #: [id number] Physician: Conrado Mccoy DO Financial #: [id number] Pt. Type: D Room/Bed: / Admit/Disch: 01/16/17 [...] Signed By: Susu Stern RN 01/16/17 13:05 [facility] Operative Report - Surgeon/P corey 01-16-2017 [...] on: 01/16/2017 13:32 EST] Conrado Mccoy DO [facility] MAGR Intraoperative Recordon 01-10-2017 MAGR Intraoperative Record MAGR Intra-Op Record Summary Primary Physician: Conrado Mccoy DO Finalized Date/Time: 01/10/17 10:13:17 Pt. Name: CLAUDETTE ROSS Kaylah/Sex: 1955 FEMALE Med Rec #: [id number] Physician: Conrado Mccoy DO Financial #: [id number] Pt. Type: D Room/Bed: / Admit/Disch: 12/12/16 [...] Role Performed Surgeon - Primary Anesthesiologist of Clinical Team Lead Record Time In 12/12/16 16:52:00 12/12/16 16:52:00 12/12/16 16:52:00 Time Out 12/12/16 17:25:00 12/12/16 17:25:00 12/12/16 17:25:00 Procedure Carpal Tunnel Carpal Tunnel Carpal Tunnel Release(Right) Release(Right) Release(Right) Last Modified By: Bina Limon RN, Barbara RN Long, Barbara RN 12/12/16 17:25:48 12/12/16 17:25:48 12/12/16 17:25:48 Entry 4 Entry 5 Case Attendee Chelsie Marcum CST, Leigh-Ann CST Role Performed Scrub Personnel House Painting Instructor Time In 12/12/16 16:52:00 12/12/16 16:52:00 Time [...] 17:10:00 TUNNEL Stop 12/12/16 17:23:00 Anesthesia Type [facility] Surgical Service Orthopedics Wound Class Clean Last Modified By: Bina Limno RN 12/12/16 17:25:52 Post-Care Text: O.730 The [...] RN, Bear, the Initial Count Performed By CIDCO STORE TEAM LEADER Initial Count Time 12/12/16 17:00:00 Counts Verification Final Counts Items Included in Sponges, Sharps Final Count Method Manual Final Count Final Count Status Correct Final Counts Bina Limon RN, Bear, Performed By [employer] STORE TEAM LEADER Final Count Time 12/12/16 17:14:00 Surgeon notified [...] 4.5 mL Volume 30 mL By Conrado cMcoy James Andrew DO Andrew DO Outcome Met [...] List 01/10/17 10:12 MHBLONG Modify Pick List [facility] MAGR Preoperative Recordon 1 02-22-2016 MAGR Preoperative Record MAGR Pre-Op Record Summary Primary Physician: Conrado Mccoy DO Finalized Date/Time: 12/22/16 13:33:53 Pt. Name: CLAUDETTE ROSS /Sex: 1955 FEMALE Med Rec #: [id number] Physician: Conrado Mccoy DO Financial #: [id number] Pt. Type: D Room/Bed: / Admit/Disch: 12/12/16 [...] consent correct. General Comments: arrives ambulatory to [facility], denies recent cp, sob, new illnesses, pacemaker, defibrillator or sleep apnea Finalized By: Susu Stern RN Document Signatures Signed By: Susu Stern RN 12/22/16 13:33 [facility] Coding Summaryon 12-15-2016 Coding Summary CODING DATE: 017 [facility] STATUS: Home PAYOR: Medicare APC DESCRIPTION 5733 [...] Linda Jenkins Date Saved: 12/15/2016 04:40 pm [facility] Coding Summary CODING DATE: 017 [facility] STATUS: Home PAYOR: Medicare APC DESCRIPTION 5431 Level 1 Nerve Procedures ADMIT DX: REASON FOR VISIT DX: G56.01 Carpal tunnel syndrome, right upper limb FINAL DX: PRINCIPAL: G56.01 Carpal tunnel syndrome, right upper limb SECONDARY: PYMT PROC APC STAT DESCRIPTION DOCTOR NAME DATE 50843 543 J1 Neuroplasty and/or Conrado Mccoy And [...] Rachel Zafar Date Saved: 12/15/2016 01:30 pm [facility] Consent Formson 12-13-2016 Consent Forms [id number]#1.00[facility] History [facility] Physicalon 12-13 History and Physical [id number]#1.00[facility] Provider Orderson 12-13-2016 Provider Orders [id number]#1.00[facility] Anesthesia Noteon 12-12-2016 Anesthesia Note Patient: Kolby ROSS : 61 years Sex: FEMALE : [birth year]Associated Diagnoses: NoneAuthor: Theodore Guevara MDPostoperative InformationPost Operative Note: Operative Day.Anesthetic utilized: Monitored anesthesia care.Health StatusAllergies:Allergic Reactions (All)Severity Not DocumentedCodeine- Rash.Percocet 5/325- Rash.Vicodin- Rash.Problem list (past medical history):All ProblemsHypothyroidism / SNOMED CT 06824329 / ConfirmedCanceled: No Chronic Problems / Cerner [...] on: 12/12/2016 17:31 EDT] Theodore Guevara MD [facility] Anesthesia Note Patient: Kolby ROSS : 61 years Sex: FEMALE : [birth year]Associated [...] (past medical history):All ProblemsHypothyroidism / SNOMED CT 76939135 / ConfirmedCanceled: No Chronic Problems / Cerner NKPAsthma, mildHistoriesFamily History:No family history items have been selected or recorded.Procedure history:Cholecystectomy (50899783).Hysterectomy and bilateral salpingo-oophorectomy sample (193472703).Fracture (445515828).Comments: 08:10 - Vandana Onofre wristDisc ([id number]).Comments:2016 08:11 - Vandana Onofre elvira and screwsSpur of ankle bone ([id number]).Comments:1 08:12 - Vandana Onofre footRotator cuff repair ([id number]).Comments: 08:12 - Vandana Onofre RNrightSocial History Alcohol Assessment Use: Never. Tobacco Assessment Never (less than 100 in lifetime) Tobacco Use:..Social & Psychosocial EywwogKagajjh83/20/2017 Alcohol Use: NbdteJttqgck73/20/2017 Smoking tobacco use: Never (less than 100 [...] 12/12/2016 14:32 EDT] Theodore Guevara MD Normal [facility] Inpatient Clinical Summaryon 12-12-[address] [facility] SURGERYClinical Discharge SummaryPERSON INFORMATIONName CLAUDETTE ROSS Age 61 Years 53Sex FEMALE Language South Korean PCP Provider, UnlistedMarital Status [facility] Acct# Arrival 12/12/16 12:05:33Visit Reason SURGERY - RELEASE RIGHT CARPAL TUNNEL Acuity LOS 005 08:24Address:[address] [facility] [address]Vibyaji:PROVIDER INFORMATIONVITALS INFORMATIONVital Sign Triage LatestTemp OralTemp TemporalTemp IntravascularTemp AxillaryTemp Wilkko70 Sat 96 % 96 %Respiratory Rate 16 [...] EDUCATION INFORMATIONInstructions:Juan gonzales- Post Op [facility]pal T[facility]Follow up:With: Address: When:Conrado Mccoy [address] [place] [address] Business (2)With: Address: When:Unlisted ProviderDIAGNOSISRight carpal tunnel syndromeComment:PHYS DOC NOTES Normal [facility] Inpatient Patient Summaryon 12-12-2016 Inpatient Patient Summary [address] [address] patient Discharge InstructionsName: CLAUDETTE ROSS ADOB: [birth year] Address: [address] [place] [address] Care Provider:Name: Provider, UnlistedPhone:Discharge Diagnosis: Right carpal tunnel syndromeIf you received any narcotics, sedation, or any other medication that causes drowsiness for the next 24 hours, unless otherwise directed:? Do not drive a car.? Do not operate machinery such as [employer] PlaceFull mowers, drills, sewing machines, or stoves? Avoid alcoholic beverages and drugs for allergies, nerves, or sleep? Do not make important personal or business decisions or sign any legal documentsMet[facility]health [facility] would like to thank you for allowing us to assist you with your healthcare needs. The following includes patient education materials and information regarding your injury/illness.CLAUDETTE ROSS has been given the following list of follow-up instructions, prescriptions, and patient education materials:Follow-up InstructionsWith: Address: When:Conrado Nadine [address] [place] [address], [address] [place], [phone] Business (2)With: Address: When:Unlisted ProviderMedicationsDuring the course [...] while awake-DO NOT lift heavy objects or animation artist forcefully with your hand-Change your dressing in [...] or concerns, please call the office at [phone]-Follow up as scheduled Viruses or BacteriaWhat?s got [...] 2013 [facility] Record Summary Primary Physician: Conrado Mccoy DO Finalized Date/Time: 12/12/16 18:18:35 Pt. Name: CLAUDETTE ROSS/Sex: 1955 FEMALE Med Rec #: [id number] Physician: Conrado Mccoy DO Financial #: [id number] Pt. Type: D Room/Bed: / Admit/Disch: 12/12/16 [...] By: Bina Limon RN 12/12/16 18:18 Normal [facility] Operative Report - Surgeon/P corey 12-12-2016 Operative [...] 12/12/2016 17:29 EDT] Conrado Mccoy DO Normal [facility] .Auto Diff 1on 12-09-2016 Auto Baso % 0.3 % Normal 0.2-2.0 [facility] Comment on above: Performed By: #### 7 525779, [id number], [id number] ####[facility] (DEFAULT)[address] [place] [address] Auto Major % 10 % Normal 1-12 [facility] Comment on above: Performed By: #### 7 383228, 41363725, [id number] ####[facility] (DEFAULT)[address] [place] [address] Auto Neut % 63 % Normal 44-88 [facility] Comment on above: Performed By: #### 7 021780, 35281298, [id number] ####[facility] (DEFAULT)[address] [place] [address] Baso Abs# 0.0 x10 Normal 0.0-0.2 [facility] Comment on above: Performed By: #### 7 073391, 25408790, [id number] ####[facility] (DEFAULT)[address] [place] [address] Eos Abs# 0.1 x10 Normal 0.0-0.4 [facility] Comment on above: Performed By: #### 7 355367, [id number], [id number] ####[facility] (DEFAULT)[address] [place] [address] Eosinophils/100 leukocytes 1.5 % Normal 0.9-4.0 [facility] Comment on above: Performed By: #### 7 794889, 96345823, [id number] ####[facility] (DEFAULT)[address] [place] [address] Lymphocytes 1.5 x10 Normal 1.3-2.9 [facility] Comment on above: Performed By: #### 7 968416, 25967259, [id number] ####[facility] (DEFAULT)[address] [place] [address] Lymphocytes/100 leukocytes 25 % Normal 14-48 [facility] Comment on above: Performed By: #### 7 674621, [id number], [id number] ####[facility] (DEFAULT)[address] [place] [address] 70760 Major Abs# 0.6 x10 Normal 0.0-0.8 [facility] Comment on above: Performed By: #### 7 111245, 94674469, [id number] ####[facility] (DEFAULT)[address] [place] [address] Neut Abs# 3.8 x10 Normal 1.5-9.2 [facility] Comment on above: Performed By: #### 7 092756, 57632879, [id number] ####[facility] (DEFAULT)[address] [place] [address]12[address] BMP Standardon 12-09-2016 eGFR (non-black) mL/min/{1.73_m2} Invalid Interpretation Code [facility] Comment on above: Performed By: #### 7 216283, [id number], [id number] ####[facility] (DEFAULT)[address] [place] [address] 83365 eGFR (non-black) mL/min/{1.73_m2} Invalid Interpretation Code [facility] Comment on above: Result Comment: Recruit Instructor marky Kidney disease could be indicated at eGFRs of less than 60 ml/min/1.73m2. Kidney Failure is indicated at less than 15 ml/min/1.73m2 Performed By: #### 7 163722, [id number], [id number] ####[facility] (DEFAULT)[address] [place] [address] 14384 Anion gap 11.0 mmol/L Normal 5.0-19.0 [facility] Comment on above: Performed By: #### 7 004664, 99460389, [id number] ####[facility] (DEFAULT)[address] [place] [address] 91230 BUN/Creatinine Ratio 12.0 mg/mg Normal 4.6-16.2 [facility] Comment on above: Performed By: #### 7 412657, 12792486, [id number] ####[facility] (DEFAULT)[address] [place] [address] 06870 Calcium 9.1 mg/dL Normal 8.9-10.3 [facility] Comment on above: Performed By: #### 7 676436, 12450395, [id number] ####[facility] (DEFAULT)[address] [place] [address] 91033 Chloride 104 mmol/L Normal 101-111 [facility] Comment on above: Performed By: #### 7 592812, 08199566, [id number] ####[facility] (DEFAULT)[address] [place] [address] 67782 CO2 26 mmol/L Normal 21-32 [facility] Comment on above: Performed By: #### 7 696659, 58686422, [id number] ####[facility] (DEFAULT)[address] [place] [address] 23915 Creatinine 0.86 mg/dL Normal 0.60-1.30 [facility] Comment on above: Performed By: #### 7 919062, 01178279, [id number] ####[facility] (DEFAULT)[address] [place] [address] Glucose mass conc 112.0 mg/dL Normal 74.0-118.0 [facility] Comment on above: Performed By: #### 7 857005, 43074808, [id number] ####[facility] (DEFAULT)[address] [place] [address] Osmolality 274 mOsm/L Invalid Interpretation Code [facility] Comment on above: Performed By: #### 7 229695, 46259886, [id number] ####[facility] (DEFAULT)[address] [place] [address] Potassium molar conc 3.8 mmol/L Normal 3.6-5.1 [facility] Comment on above: Performed By: #### 7 734624, 48638291, [id number] ####[facility] (DEFAULT)[address] [place] [address] Sodium 137.0 mmol/L Normal 136.0-144. 0 [facility] Comment on above: Performed By: #### 7 721850, 34734234, [id number] ####[facility] (DEFAULT)[address] [place] [address] Urea nitrogen 10 mg/dL Normal 8-26 [facility] Comment on above: Performed By: #### 7 273610, 14192031, [id number] ####[facility] (DEFAULT)[address] [place] [address] CBC w/ Auto Diffon 201 7 Erythrocyte distribution width Auto Ratio (RBC) 13.2 % Normal 11.5-15.0 [facility] Comment on above: Performed By: #### 7 071930, 51179768, [id number] ####[facility] (DEFAULT)[address] [place] [address] Erythrocytes (RBC) 4.40 x10 Normal 3.70-5.30 [facility] Comment on above: Performed By: #### 7 989930, 18336351, [id number] ####[facility] (DEFAULT)[address] [place] [address] Hematocrit (HCT) 39.4 % Normal 33.7-40.4 [facility] Comment on above: Performed By: #### 7 820958, 49500477, [id number] ####[facility] (DEFAULT)[address] [place] [address] Hemoglobin mass conc (Bld) 13.8 g/dL Normal 11.3-15.9 [facility] Comment on above: Performed By: #### 7 073837, 65426769, [id number] ####[facility] (DEFAULT)[address] [place] [address] Man Diff? Auto Normal [facility] Comment on above: Performed By: #### 7 215889, 43585707, [id number] ####[facility] (DEFAULT)[address] [place] [address] MCH 31 pg Normal 24-34 [facility] Comment on above: Performed By: #### 7 000968, 05798977, [id number] ####[facility] (DEFAULT)[address] [place] [address] MCHC mass conc (RBC) 35 g/dL Normal 26-37 [facility] Comment on above: Performed By: #### 7 257086, 55635056, [id number] ####[facility] (DEFAULT)[address] [place] [address] MCV 90 fL Normal 81-100 [facility] Comment on above: Performed By: #### 7 974689, 85179448, [id number] ####[facility] (DEFAULT)[address] [place] [address] Platelet mean volume (PMV) 8.6 fL Normal 6.3-10.2 [facility] Comment on above: Performed By: #### 7 090441, 51515020, [id number] ####[facility] (DEFAULT)[address] [place] [address] Platelets 194 x10 Normal 138-427 [facility] Comment on above: Performed By: #### 7 049332, 70043066, [id number] ####[facility] [facility] (DEFAULT)[address] [place] [address] WBC (Leukocytes) 6.0 x10 Invalid Interpretation Code [facility] Comment on above: Performed By: #### [id number] ####[facility] (DEFAULT)[address] [place] [address] Vital Signs Date Time Vital Sign Value Performing Clinician Facility 03-25-2024 14:56-0500 Diastolic blood pressure 84 mm[Hg] Jessica Ian MUSEUM EDUCATOR Work Phone: [facility] 03-25-2024 14:56-0500 Systolic blood pressure 152 mm[Hg] Jessica Elianaz MUSEUM EDUCATOR Work Phone: [facility] 03-25-2024 14:26-0500 Body height 162.6 cm Jessica Levalhajiholz MUSEUM EDUCATOR Work Phone: [facility] 03-25-2024 14:26-0500 Body mass index (BMI) [Ratio] 32.68 kg/m2 Jessica Levhholz MUSEUM EDUCATOR Work Phone: [facility] 03-25-2024 14:26-0500 Body temperature 98.49 [degF] Jessica Levpjz MUSEUM EDUCATOR Work Phone: [facility] 03-25-2024 14:26-0500 Body weight 86.36 kg Jessica Levalhajiholz MUSEUM EDUCATOR Work Phone: [facility] 03-25-2024 14:26-0500 Heart rate 86 /min Jesscia Levhholz MUSEUM EDUCATOR Work Phone: [facility] 03-25-2024 14:26-0500 Respiratory rate 18 /min Jessica Kelsiholz MUSEUM EDUCATOR Work Phone: [facility] 03-25-2024 14:26-0500 SaO2% (BldA) [Mass fraction] 96 % Jessica Elianaz MUSEUM EDUCATOR Work Phone: [facility] 12-20-2023 16:36-0400 Body height 170.2 cm Jessicaesmer Dolanholz MUSEUM EDUCATOR Work Phone: [facility] 12-20-2023 16:36-0400 Body mass index (BMI) [Ratio] 29.6 kg/m2 Jessica Levhholz MUSEUM EDUCATOR Work Phone: [facility] 12-20-2023 16:36-0400 Body temperature 97.81 [degF] Jessica Levhholz MUSEUM EDUCATOR Work Phone: [facility] 12-20-2023 16:36-0400 Body weight 85.73 kg Jessica Levhholz MUSEUM EDUCATOR Work Phone: [facility] 12-20-2023 16:36-0400 Diastolic blood pressure 72 mm[Hg] Jessica Levhholz MUSEUM EDUCATOR Work Phone: [facility] 12-20-2023 16:36-0400 Heart rate 80 /min Jessica Kelsiholz MUSEUM EDUCATOR Work Phone: [facility] 12-20-2023 16:36-0400 Respiratory rate 18 /min Jessica Lvehholz MUSEUM EDUCATOR Work Phone: [facility] 12-20-2023 16:36-0400 SaO2% (BldA) [Mass fraction] 96 % Jessica Kelsiholz MUSEUM EDUCATOR Work Phone: [facility] 12-20-2023 16:36-0400 Systolic blood pressure 124 mm[Hg] Jessica Kelsiholz MUSEUM EDUCATOR Work Phone: [facility] 10-18-2023 13:05-0400 Body height 170.2 cm Jessica Levhholz MUSEUM EDUCATOR Work Phone: [facility] 10-18-2023 13:05-0400 Body mass index (BMI) [Ratio] 29.82 kg/m2 Jessica Aichholz MUSEUM EDUCATOR Work Phone: [facility] 10-18-2023 13:05-0400 Body temperature 97.3 [degF] Jessica Elianaz MUSEUM EDUCATOR Work Phone: [facility] 10-18-2023 13:05-0400 Body weight 86.36 kg Jessica Levhgwenz MUSEUM EDUCATOR Work Phone: [facility] 10-18-2023 13:05-0400 Diastolic blood pressure 76 mm[Hg] Jessica Aichholz MUSEUM EDUCATOR Work Phone: [facility] 10-18-2023 13:05-0400 Heart rate 82 /min Jessica Levhholz MUSEUM EDUCATOR Work Phone: [facility] 10-18-2023 13:05-0400 Respiratory rate 18 /min Jessica Aichholz MUSEUM EDUCATOR Work Phone: [facility] 10-18-2023 13:05-0400 SaO2% (BldA) [Mass fraction] 96 % Jessica Levhholz MUSEUM EDUCATOR Work Phone: [facility] 10-18-2023 13:05-0400 Systolic blood pressure 112 mm[Hg] Jessica Levhholz MUSEUM EDUCATOR Work Phone: [facility] 11-03-2021 15:36-0400 Blood Pressure Location LINDABERNARD MASON [facility] 11-03-2021 15:36-0400 Diastolic blood pressure 87 mm[Hg] LINDA ISABELLA [facility] 11-03-2021 15:36-0400 Heart rate 101 /min LINDA ISABELLA [facility] 11-03-2021 15:36-0400 Systolic blood pressure 136 mm[Hg] LINDA ISABELLA [facility] Encounters Encounter Date Encounter Type Care Provider Facility Start: 03-25-2024 End: 03-25-2024 Office outpatient visit 25 minutes Jessica Sosa MUSEUM EDUCATOR Work Phone: [facility] Comment on above: Primary hypertension (CMS/HCC) (Primary Dx); Obstructive sleep apnea; Hypothyroidism, unspecified type (CMS/HCC); Overweight (BMI 25.0-29.9); Osteopenia, unspecified location; Anxiety and depression (CMS/HCC); Asymptomatic microscopic hematuria; Vitamin D deficiency; Mixed hyperlipidemia (CMS/HCC); Needs flu shot; Allergic rhinitis, unspecified seasonality, unspecified trigger Start: 03-25-2024 End: 03-25-2024 Bamboo flowsheet Jessica Sosa MUSEUM EDUCATOR Work Phone: [facility] Start: 03-25-2024 End: 03-25-2024 Bamboo flowsheet Jessica Sosa MUSEUM EDUCATOR Work Phone: [facility] Start: 12-20-2023 End: 12-20-2023 ambulatory JESSICA SOSA Not Available Start: 12-20-2023 End: 12-20-2023 Bamboo flowsheet Jessica Sosa MUSEUM EDUCATOR Work Phone: [facility] Start: 12-20-2023 End: 12-20-2023 Bamboo flowsheet Jessica Sosa MUSEUM EDUCATOR Work Phone: [facility] Start: 12-20-2023 End: 12-20-2023 Patient encounter procedure Jessica Sosa MUSEUM EDUCATOR Work Phone: [facility] Comment on above: Encounter for subseq uent annual wellness visit (AWV) in Medicare patient (Primary Dx); Obesity (BMI 30-39.9); Hypothyroidism, unspecified type (CMS/HCC); Mixed hyperlipidemia (CMS/HCC); Anxiety and depression (CMS/HCC); Overweight (BMI 25.0-29.9); Obstructive sleep apnea; Osteopenia, unspecified location; Post-menopausal Start: 10-18-2023 End: 10-18-2023 Bamboo flowsheet Jessica Sosa MUSEUM EDUCATOR Work Phone: [facility] Start: 10-18-2023 End: 10-18-2023 Bamboo flowsheet Jessica Sosa MUSEUM EDUCATOR Work Phone: [facility] Start: 10-18-2023 End: 10-18-2023 Office outpatient visit 15 minutes Jessica Sosa MUSEUM EDUCATOR Work Phone: [facility] Comment on above: Encounter for screen ing mammogram for malignant neoplasm of breast; Osteopenia, unspecified location; Anxiety and depression ([facility]); Allergic rhinitis, unspecified seasonality, unspecified trigger; Vitamin D deficiency; Hypothyroidism, unspecified type (CMS/[facility]); Urinary incontinence in female; Mixed hyperlipidemia ([facility]); Obesity (BMI 30-39.9); Obstructive sleep apnea Start: 10-18-2023 End: 10-18-2023 ambulatory JESSICA AICHHOLZ Not Available Start: 07-18-2023 End: 07-18-2023 ambulatory JESSICA AICHHOLZ Not Available Start: 04-13-2023 End: 04-13-2023 ambulatory JESSICA AICHHOLZ Not Available Start: 01-31-2023 End: 01-31-2023 ambulatory JESSICA AICHHOLZ Not Available Start: 11-09-2022 End: 11-10-2022 ambulatory LINDA MASON Facility:[facility] Start: 11-09-2022 End: 11-09-2022 Patient encounter procedure LINDA MASON [facility] Start: 06-29-2022 ambulatory CABIN CLEANING SUPERVISOR JESSICA ELIANAZ Facil ity:[facility] Start: 05-25-2022 End: 05-26-2022 ambulatory CABIN CLEANING SUPERVISOR JESSICA AICHHOLZ Facility:[facility] Start: 05-09-2022 End: 05-10-2022 ambulatory CABIN CLEANING SUPERVISOR JSESICA AICHHOLZ Facility:[facility] Start: 05-02-2022 End: 05-02-2022 ambulatory CABIN CLEANING SUPERVISOR JESSICA AICHHOLZ Facility:[facility] Start: 03-11-2022 End: 03-11-2022 ambulatory Jessica J Ian Work Phone: [facility] Work Phone: Start: 03-11-2022 End: 03-11-2022 Patient encounter procedure Jessica Sosa Work Phone: [facility] Work Phone: Start: 12-08-2021 End: 12-09-2021 ambulatory CABIN CLEANING SUPERVISOR JESSICA SOSA Facility:[facility] Start: 11-03-2021 End: 11-03-2021 Patient encounter procedure LINDA MASON [facility] Start: 08-09-2021 End: 08-10-2021 ambulatory CABIN CLEANING SUPERVISOR JESSICA SOSA Facility:[facility] Start: 06-24-2021 End: 06-25-2021 ambulatory CABIN CLEANING SUPERVISOR JESSICA SOSA Facility: Start: 03-18-2021 End: 03-19-2021 ambulatory MD NIDHI MICHAELS Facility:[facility] Start: 01-26-2021 End: 01-26-2021 Emergency department patient visit MD NIDHI MICHAELS Facility:[facility] Start: 03-05-2019 End: 03-06-2019 Patient encounter procedure RALPH ZAVALA Facility:[facility] Start: 01-16-2017 End: 01-24-2017 Ambulatory [facility] Facility:[facility] Start: 12-12-2016 End: 12-20-2016 Ambulatory [facility] Facility:[facility] Start: 12-10-2016 End: 12-13-2016 Ambulatory [facility] Facility:[facility] Procedures Date Procedure Procedure Detail Performing Clinician Start: 10-30-2023 Mammography Jessica Reji maria elena MUSEUM EDUCATOR Work Phone: Start: 09-27-2022 Mammography Jessica Aichh olz MUSEUM EDUCATOR Work Phone: Start: 03-11-2022 Plain chest X-ray Jessica Levalhajiaubrie Work Phone: Start: 06-27-2018 Repair of stress inc ontinence by suprapubic sling LINDA MASON Start: 10-09-2017 Cystourethroscopy an d dilation of bladder LINDA MASON Start: 02-20-2017 Colonoscopy LINDA GONZALEZ Start: 12-22-2016 Colonoscopy Jessica arredondo MUSEUM EDUCATOR Work Phone: Start: 06-11-2014 left synovectomy to Achilles tendon [...] on above: left wrist surgery 6 LINDA BURT RY Comment on above: left Plan of Treatment Date Care Activity Detail Author Start: 12-22-2026 Screening for malign ant neoplasm of colon [facility] Start: 12-19-2024 Medicare Annual Well ness (AWV) Medicare Annual Wellness (AWV) [facility] Start: 10-29-2024 Screening for malign ant neoplasm of breast Mammogram [facility] Start: 03-25-2024 End: 03-25-2024 Patient encounter procedure 03/25/2024 2:20 PM EST Office Visit [facility] [address] [place] [address] Jessica Sosa NP [address] [place] [address] Obstructive sleep apnea (Primary Dx); Hypothyroidism, unspecified type (CMS/HCC); Overweight (BMI 25.0-29.9); Osteopenia, unspecified location; Anxiety and depression (CMS/HCC); Asymptomatic microscopic hematuria; Vitamin D deficiency; Mixed hyperlipidemia (CMS/HCC) [facility] Comment on above: Obstructive sleep ap sarah (Primary Dx); Hypothyroidism, unspecified type (CMS/HCC); Overweight (BMI 25.0-29.9); Osteopenia, unspecified location; Anxiety and depression (CMS/HCC); Asymptomatic microscopic hematuria; Vitamin D deficiency; Mixed hyperlipidemia (CMS/HCC) Start: 03-25-2024 End: 03-25-2025 25-hydroxyvitamin D3 [Mass/volume] in Serum or Plasma Vitamin D 25 hydroxy Lab Routine Vitamin D deficiency Expected: 03/25/2024 (Approximate), Expires: 03/25/2025 [facility] Comment on above: Expected: 03/25/2024 (Approximate), Expires: 03/25/2025 Start: 03-25-2024 End: 03-25-2025 CBC W Auto Differential panel - Blood CBC and differential Lab Routine Obstructive sleep apnea Hypothyroidism, unspecified type (CMS/HCC) Asymptomatic microscopic hematuria Expected: 03/25/2024 (Approximate), Expires: 03/25/2025 [facility] Work Phone: Comment on above: Expected: 03/25/2024 (Approximate), Expires: 03/25/2025 Start: 03-25-2024 End: 03-25-2025 Comprehensive metabolic 2000 panel - Serum or Plasma Comprehensive metabolic panel Lab Routine Hypothyroidism, unspecified type (CMS/HCC) Overweight (BMI 25.0-29.9) Osteopenia, unspecified location Expected: 03/25/2024 (Approximate), Expires: 03/25/2025 [facility] Comment on above: Expected: 03/25/2024 (Approximate), Expires: 03/25/2025 Start: 03-25-2024 End: 03-25-2025 Lipid 1996 panel - Serum or Plasma Lipid panel Lab Routine Mixed hyperlipidemia ([facility]/HCC) Expected: 03/25/2024 (Approximate), Expires: 03/25/2025 [facility] Comment on above: Expected: 03/25/2024 (Approximate), Expires: 03/25/2025 Start: 03-25-2024 End: 03-25-2025 Thyrotropin [Units/volume] in Serum or Plasma TSH Lab Routine Hypothyroidism, unspecified type ([facility]/HCC) Expected: 03/25/2024 (Approximate), Expires: 03/25/2025 [facility] Comment on above: Expected: 03/25/2024 (Approximate), Expires: 03/25/2025 Start: 03-25-2024 End: 03-25-2025 Thyroxine (T4) free [Mass/volume] in Serum or Plasma T4, free Lab Routine Hypothyroidism, unspecified type ([facility]/HCC) Expected: 03/25/2024 (Approximate), Expires: 03/25/2025 [facility] Comment on above: Expected: 03/25/2024 (Approximate), Expires: 03/25/2025 Start: 03-25-2024 End: 03-25-2025 Urinalysis complete panel - Urine Urinalysis with reflex microscopic (clean catch) Lab Routine Asymptomatic microscopic hematuria Expected: 03/25/2024 (Approximate), Expires: 03/25/2025 [facility] Comment on above: Expected: 03/25/2024 (Approximate), Expires: 03/25/2025 Start: 12-21-2023 Influenza vaccination Influenza Vacc ine (#1) [facility] Comment on above: Postponed from 10/21 (Patient Refused) Start: 12-20-2023 End: 12-20-2023 Patient encounter procedure [facility] Comment on above: Arrived Start: 12-20-2023 End: 12-19-2024 DXA Skeletal system Views for bone density DEXA bone density Imaging Routine Osteopenia, unspecified location Post-menopausal Expected: 12/20/2023 (Approximate), Expires: 12/19/2024 [facility] Work Phone: Comment on above: Expected: 12/20/2023 (Approximate), Expires: 12/19/2024 Start: 12-16-2023 Medicare Annual Well ness (AWV) Medicare Annual Wellness (AWV) [facility] Start: 10-22-2023 Influenza vaccination Influenza Vacc ine (#1) [facility] Start: 10-18-2023 End: 12-17-2024 MG Breast - bilateral Screening Bilateral screening mammogram Imaging Routine Encounter for screening mammogram for malignant neoplasm of breast Expected: 10/18/2023 (Approximate), Expires: 12/17/2024 [facility] Work Phone: Comment on above: Expected: 10/18/2023 (Approximate), Expires: 12/17/2024 Start: 09-28-2023 Screening for malign ant neoplasm of breast Mammogram [facility] Start: 1955 Medicare Annual Well ness (AWV) Medicare Annual Wellness (AWV) [facility] Start: 1955 Screening for malign ant neoplasm of colon [facility] Immunizations Immunization Date Immunization Notes Care Provider Xena brewer 03-25-2024 Seasonal trivalent influenza vaccine, adjuvanted, preservative free Jessica Sosa MUSEUM EDUCATOR Work Phone: [facility] 01-04-2023 Influenza, High-dose Seasonal, Quadrivalent, Preservative Free Jessica Sosa MUSEUM EDUCATOR Work Phone: [facility] 01-04-2023 influenza virus vacc ine, unspecified formulation Jessica Sosa MUSEUM EDUCATOR Work Phone: [facility] Payers Date Payer Category Payer Medicare [employer] [facility] [place] [id number] 2022-Present [address] [place] [address] [id number] 2022 Medicare (Managed Care) [facility] MEDICARE [id number] 2022 Private Health Insurance [id number] 2022 Self-pay 2021 Unknown [id number] 2021 Unknown 2019 Medicaid 2017 Unknown [id number] 2016 Medicare [id number] 1959 Private Health Insurance [id number] 1959 Unknown [id number] 1954 Unknown [id number] 2..[id number]. 647 1954 Unknown [id number] 2.0.1.710855.3.579.2. 196 1954 Unknown [id number] 2.840.1.647618.3.579.2. 196 1954 Unknown [id number] 2.16.840.1.019224.3.579.2. 593 1954 Unknown [id number] 2.16840.1.819231.3.579.2. 593 1954 Unknown [id number] 2.16840.1.989276.3.579.2. 593 1954 Unknown [id number] 2.16.840.1.659876.3.579.2. 593 1954 Unknown [id number] 2.16.840.1.015643.3.579.2. 593 1954 Unknown [id number] 2.16.840.1.119675.3.579.2. 593 1954 Unknown [id number] 2.16.840.1.659987.3.579.2. 593 1954 Unknown [id number] 2.16.840.1.743796.3.579.2. 727 1954 Unknown [id number] 2.16.840.1.601530.3.579.2. 1259 1954 Unknown [id number] 2.16.840.1.433146.3.579.2. 1259 1954 Unknown [id number] 2.16.840.1.481470.3.579.2. 1259 1954 Unknown [id number] 2.16.840.1.985338.3.579.2. 1259 1954 Unknown [id number] 2.16.840.1.791508.3.579.2. 1259 Medicaid [id number] Private Health Insurance [id number] Unknown [id number] [id number]. 531 Social History Date Type Detail Facility Start: 11-03-2021 End: 01-31-2023 Tobacco smoking status Never smoked tobacco (finding) [facility] Start: 03-28-2023 End: 12-20-2023 Sex Assigned At Female [facility] Start: 1955 Sex Assigned At Female [facility] Start: 01-31-2023 Tobacco use and exposure Smokeless tobacco non-user [facility] Start: 10-18-2023 End: 03-25-2024 Alcoholic beverage intake Lifetime non-drinker (finding) [facility] Start: 03-28-2023 End: 12-20-2023 History of Social function [facility] Within the last year , have you been afraid of your partner or ex-partner? No [facility] Are you now , , , , never or living with a partner? [facility] How often to you hav e a drink containing alcohol? Never [facility] How many standard drinks containing alcohol do you have on a typical day? Patient does not drink [facility] How hard is it for you to pay for the very basics like food, housing, medical care, and heating Not very hard [facility] Do you feel stress - tense, restless, nervous, or anxious, or unable to sleep at night because your mind is troubled all the time - these days [OSQ] Only a little [facility] (I/We) worried whether (my/our) food would run out before (I/we) got money to buy more. Never true [facility] The food that (I/we) bought just didn't last, and (I/we) didn't have money to get more. Sometimes true [facility] In the past 12 months, was there a time when you were not able to pay the mortgage or rent on time? Yes [facility] Start: 01-31-2023 Alcohol Comment caffeine yes type:tea 1cup daily [facility] Start: 1955 Sex assigned at Not on file [facility] NEGATED: Highlighted rowStart: NINF History of tobacco use Passive smoker [facility] Functional Status Date Assessment Result Facility 11-03-2021 Functional Status N/A [facility] Clinical Notes 01-26-2021 to 03-25-2024 Jessica Sosa, KEY - 03/25/2024 2:59 PM ESTJessica Sosa, KEY - 03/25/2024 2:43 PM Farrah Sosa, KEY - 03/25/2024 2:20 PM Farrah Sosa, KEY - 03/25/2024 7:06 AM ESTPatient Instructions Note Date & Type Note Facility 03-25-2024 History of Present illness Narrative Associated Problem(s): Hypertension (CMS/HCC) Please check blood pressure daily and record DASH diet Limit caffeine Take medication as directed Contact office if chest pain, pressure, dizziness, shortness of breath, swelling legs Recommend slow position changes Will start losartan at 25mg daily Fu in 4 weeks for recheck 1 week prior to appt get labs completed Associated Problem(s): Needs flu shot Consent signed VIS given Images from the original note were not included. Claudette Ross is a 68 y.o. female presents with chief complaint of No chief complaint on file. HPI: Having difficulty with sleep and PAP machine, is working with dr canseco for this, has a repeat sleep study tomorrow night Depression Visit Type: follow-up Patient is not experiencing: anhedonia, decreased concentration, depressed mood, excessive worry, feelings of hopelessness, feelings of worthlessness, impotence, insomnia, irritability, memory impairment, muscle tension, nervousness/anxiety, palpitations, shortness of breath, suicidal ideas, suicidal planning, thoughts of , weight gain and weight loss. Frequency of symptoms: occasionally Severity: mild Sleep quality: good Compliance with medications: 76-100% Anxiety Presents for follow-up visit. Patient reports no chest pain, decreased concentration, depressed mood, dizziness, excessive worry, impotence, insomnia, irritability, muscle tension, nausea, nervous/anxious behavior, palpitations, shortness of breath or suicidal ideas. Symptoms occur occasionally. The severity of symptoms is mild. The quality of sleep is good. Compliance with medications is 76-100%. Thyroid Problem Presents for follow-up visit. Symptoms include fatigue and hoarse voice. Patient reports no anxiety, constipation, depressed mood, diarrhea, dry skin, hair loss, heat intolerance, palpitations, tremors, weight gain or weight loss. The symptoms have been stable. SUBJECTIVE: MEDICATIONS: Current Outpatient Medications Medication Instructions alendronate (FOSAMAX) 70 mg, Oral, Every 7 days, Take in the morning with a full glass of water, on an empty stomach, and do not take anything else by mouth or lie down for the next 30 min. ARIPiprazole (ABILIFY) 2 mg, Oral, Daily busPIRone (BUSPAR) 10 mg, Oral, Every 12 hours cetirizine (ZYRTEC) 10 mg, Oral, Daily levothyroxine (SYNTHROID, LEVOXYL) 75 mcg, Oral, Daily before breakfast montelukast (SINGULAIR) 10 mg, Oral, Nightly sertraline (ZOLOFT) 100 mg, Oral, 2 times daily simvastatin (ZOCOR) 20 mg, Oral, Nightly traZODone (DESYREL) 100 mg, Oral, Nightly ALLERGIES: Allergies Allergen Reactions Hydrocodone-Acetaminophen Vicodin Sulfamethoxazole-Trimethoprim Hives Codeine Rash Hydrocodone Rash Oxycodone Rash Oxycodone-Acetaminophen Rash But can take regular tylenol okay REVIEW OF SYMPTOMS: Review of Systems Constitutional: Positive for fatigue. Negative for appetite change, chills, fever, irritability, weight gain and weight loss. HENT: Positive for hoarse voice. Negative for congestion, ear pain and sore throat. Eyes: Negative for pain, discharge, redness and visual disturbance. Respiratory: Negative for cough, shortness of breath and wheezing. Cardiovascular: Negative for chest pain, palpitations and leg swelling. Gastrointestinal: Negative for abdominal pain, blood in stool, constipation, diarrhea, nausea and vomiting. Genitourinary: Negative for difficulty urinating, dysuria, frequency and impotence. Musculoskeletal: Negative for arthralgias, back pain, joint swelling and myalgias. Skin: Negative for rash and wound. Neurological: Negative for dizziness, tremors, seizures, syncope and headaches. Psychiatric/Behavioral: Positive for depression. Negative for behavioral problems, decreased concentration, self-injury and suicidal ideas. The patient is not nervous/anxious and does not have insomnia. Hematological: Does not bruise/bleed easily. Endocrine: Negative for heat intolerance, polydipsia, polyphagia and polyuria. Allergic/Immunologic: Negative for environmental allergies and food allergies. PAST MEDICAL HISTORY Past Medical History: Diagnosis Date Abdominal pain 04/13/2023 Allergic rhinitis 04/13/2023 Anxiety and depression (CMS/HCC) 04/13/2023 Asymptomatic microscopic hematuria 04/13/2023 Bronchitis 04/13/2023 Cervical paraspinal muscle spasm Chest pain 04/13/2023 Class 1 obesity due to excess calories without serious comorbidity in adult 01/31/2023 DDD (degenerative disc disease), cervical 04/13/2023 Diverticulosis 04/13/2023 Dyspnea 04/13/2023 Hyperlipidemia (CMS/HCC) 04/13/2023 Hypertension (CMS/HCC) 04/13/2023 Hypothyroidism (CMS/HCC) 04/13/2023 Insect sting 04/13/2023 Insomnia 04/13/2023 Lumbar radiculopathy, acute 04/13/2023 Menopause 04/13/2023 Mild episode of recurrent major depressive disorder (HCC) (CMS/HCC) 01/31/2023 Obesity (BMI 30-39.9) 01/31/2023 Obstructive sleep apnea 04/13/2023 Osteopenia 04/13/2023 Paresthesia of both hands Pulmonary nodule 04/13/2023 Seasonal allergies 04/13/2023 Spinal stenosis, lumbar 04/13/2023 Tennis elbow 04/13/2023 Urinary incontinence in female 04/13/2023 Vitamin D deficiency 04/13/2023 Wrist fracture 04/13/2023 Past Surgical History: Procedure Laterality Date ARTHROSCOPY SHOULDER / OPEN SHOULDER 2013 CARPAL TUNNEL RELEASE Left 01/16/2017 Dr. Mccoy CERVICAL FUSION Posterior cervical fusion CHOLECYSTECTOMY COLONOSCOPY 04/2010 ELBOW SURGERY Tennis elbow FOOT SURGERY HAND SURGERY Right 01/17/2018 RT hand excision of duptyren nodule Dr. Mccoy HYSTERECTOMY ORIF WRIST FRACTURE OTHER SURGICAL HISTORY Right hav 5th ht MS REVISE ULNAR NERVE AT ELBOW Right 04/04/[address] Mccoy family history includes Heart disease in her father; Pancreatic cancer in her mother. OBJECTIVE: Visit Vitals BP 152/84 (BP Location: Left arm, Patient Position: Sitting, BP Cuff Size: Large adult) Pulse 86 Temp 98.5 F (Temporal) Resp 18 Ht 5' 4 Wt 190 lb 6.4 oz SpO2 96% BMI 32.68 kg/m Smoking Status Never BSA 1.98 m Physical Exam Vitals and nursing note reviewed. Constitutional: General: She is not in acute distress. Appearance: Normal appearance. HENT: Head: Normocephalic and atraumatic. Right Ear: External ear normal. Left Ear: External ear normal. Nose: Nose normal. Mouth/Throat: Mouth: Mucous membranes are moist. Eyes: Extraocular Movements: Extraocular movements intact. Conjunctiva/sclera: Conjunctivae normal. Neck: Vascular: No carotid bruit. Cardiovascular: Rate and Rhythm: Normal rate and regular rhythm. Pulses: Normal pulses. Heart sounds: Normal heart sounds. Pulmonary: Effort: Pulmonary effort is normal. Breath sounds: Normal breath sounds. Abdominal: General: Bowel sounds are normal. There is no distension. Palpations: Abdomen is soft. There is no mass. Tenderness: There is no abdominal tenderness. Musculoskeletal: General: Normal range of motion. Cervical back: Normal range of motion and neck supple. Lymphadenopathy: Cervical: No cervical adenopathy. Skin: General: Skin is warm and dry. Capillary Refill: Capillary refill takes 2 to 3 seconds. Findings: No rash. Neurological: General: No focal deficit present. Mental Status: She is alert and oriented to person, place, and time. Psychiatric: Mood and Affect: Mood normal. Behavior: Behavior normal. Thought Content: Thought content normal. Judgment: Judgment normal. ASSESSMENT AND PLAN: No follow-ups on file. Problem List Items Addressed This Visit Mixed hyperlipidemia (CMS/HCC) On statin Check labs yearly and prn dose changes Relevant Medications simvastatin (Zocor) 20 MG tablet Other Relevant Orders Lipid panel Anxiety and depression (CMS/HCC) Current meds: abilify, buspar, sertaline and trazodone PHQ 9= 5 LATA 7=1 Relevant Medications ARIPiprazole (Abilify) 2 MG tablet busPIRone (Buspar) 10 MG tablet sertraline (Zoloft) 100 MG tablet traZODone (Desyrel) 50 MG tablet Allergic rhinitis Relevant Medications cetirizine (ZyrTEC) 10 MG tablet montelukast (Singulair) 10 MG tablet Obstructive sleep apnea - Primary You have a diagnosis of obstructive sleep apnea. It is recommended that you wear your PAP device any time while in bed sleeping. Not using the PAP device can increase your risk of elevated/uncontrolled high blood pressure, atrial fibrillation, heart attack, stroke, or sudden . Compliance with PAP: yes How many hours of use per night: 8 in the past , now more recent 4-5 hours Do you feel more refreshed in the morning: no Company that supplies your machine and tubing/filters etc: uncertain, possible [facility] medical Doctor that manages your ANITA: Dr Canseco Is gonna have another sleep study as she is not having good toleration of things Relevant Orders CBC and differential Hypertension (CMS/HCC) Please check blood pressure daily and record DASH diet Limit caffeine Take medication as directed Contact office if chest pain, pressure, dizziness, shortness of breath, swelling legs Recommend slow position changes Will start losartan at 25mg daily Fu in 4 weeks for recheck 1 week prior to appt get labs completed Relevant Medications losartan (Cozaar) 25 MG tablet Asymptomatic microscopic hematuria Relevant Orders CBC and differential Urinalysis with reflex microscopic (clean catch) Osteopenia DEXA 06/24/2021 Current med: fosamax Relevant Orders Comprehensive metabolic panel Vitamin D deficiency Relevant Orders Vitamin D 25 hydroxy Hypothyroidism (CMS/HCC) Current medication : levothyroxine Check labs yearly and prn dose changes or changes in symptms Relevant Medications levothyroxine (Synthroid, Levoxyl) 75 MCG tablet Other Relevant Orders CBC and differential Comprehensive metabolic panel TSH T4, free Overweight (BMI 25.0-29.9) Relevant Orders Comprehensive metabolic panel Needs flu shot Consent signed VIS given Relevant Orders Flu vaccine, trivalent, adjuvanted, PF ([id number]) (Fluad trivalent single dose syringe) Associated Problem(s): Mixed hyperlipidemia (CMS/HCC) On statin Check labs yearly and prn dose changes Associated Problem(s): Anxiety and depression (CMS/HCC) Current meds: abilify, buspar, sertaline and trazodone PHQ 9= 5 LATA 7=1 Associated Problem(s): Osteopenia DEXA 06/24/2021 Current med: fosamax Associated Problem(s): Hypothyroidism (CMS/HCC) Current medication : levothyroxine Check labs yearly and prn dose changes or changes in symptms Associated Problem(s): Obstructive sleep apnea You have a diagnosis of obstructive sleep apnea. It is recommended that you wear your PAP device any time while in bed sleeping. Not using the PAP device can increase your risk of elevated/uncontrolled high blood pressure, atrial fibrillation, heart attack, stroke, or sudden . Compliance with PAP: yes How many hours of use per night: 8 in the past , now more recent 4-5 hours Do you feel more refreshed in the morning: no Company that supplies your machine and tubing/filters etc: uncertain, possible [facility] medical Doctor that manages your ANITA: Dr Canseco Is gonna have another sleep study as she is not having good toleration of things documented in this encounter [facility] 03-25-2024 Instructions Jessica Sosa NP - 03/25/2024 2:20 PM EST For blood pressure: start losartan 25mg pill daily. Get labs checked in 3 weeks Low sodium diet Bone Density scan at [facility] documented in this encounter [facility] 12-20-2023 History of Present illness Narrative Associated Problem(s): Encounter for subsequent annual wellness visit (AWV) in Medicare patient I have reviewed Ht/Wt/BMI, I have reviewed recommended vaccines for patient's age, as well as all recommended screenings I have reviewed available care everywhere notes as well. I have recommended eating a balanced diet, as well as activity as chronic conditions allow It is recommended that the patient have a yearly eye exam, as well as twice a year dental exams Hand out on living will and HCPOA Fu in this office for wellness on a yearly basis Associated Problem(s): Osteopenia Continue w fosamax, will get an updated DEXA scan Associated Problem(s): Obstructive sleep apnea Picked up new PAP machine today Associated Problem(s): Anxiety and depression (CMS/HCC) No med dose changes Associated Problem(s): Mild episode of recurrent major depressive disorder (HCC) (CMS/HCC) Continue statin Associated Problem(s): Hypothyroidism (CMS/HCC) Continue current meds Images from the original note were not included. Claudette Ross is a 68 y.o. female presents with chief complaint of No chief complaint on file. HPI: Diet: variety Activity: walking daily, riding bike Mental Health Concerns: none Falls in the last year: none Still driving:yes Do you pay your bills:yes Any hearing problems:no Any Vision problems: no Any Hospitalizations in the last year:no Specialist: Dr Evans (urogyn)[place] (eye) HCPOA/Living Will: no Concerns: none SUBJECTIVE: MEDICATIONS: Current Outpatient Medications Medication Instructions alendronate (FOSAMAX) 70 mg, Oral, Every 7 days, Take in the morning with a full glass of water, on an empty stomach, and do not take anything else by mouth or lie down for the next 30 min. ARIPiprazole (ABILIFY) 2 mg, Oral, Daily busPIRone (BUSPAR) 10 mg, Oral, Every 12 hours cetirizine (ZYRTEC) 10 mg, Oral, Daily cholecalciferol (VITAMIN D-3) 125 mcg, Oral, Daily levothyroxine (SYNTHROID, LEVOXYL) 75 mcg, Oral, Daily before breakfast mirabegron ER (MYRBETRIQ) 50 mg, Oral, Nightly, Do not crush, chew, or split. montelukast (SINGULAIR) 10 mg, Oral, Nightly sertraline (ZOLOFT) 100 mg, Oral, 2 times daily simvastatin (ZOCOR) 20 mg, Oral, Nightly traZODone (DESYREL) 100 mg, Oral, Nightly ALLERGIES: Allergies Allergen Reactions Hydrocodone-Acetaminophen Vicodin Sulfamethoxazole-Trimethoprim Hives Codeine Rash Hydrocodone Rash Oxycodone Rash Oxycodone-Acetaminophen Rash But can take regular tylenol okay REVIEW OF SYMPTOMS: Review of Systems Constitutional: Negative for appetite change, chills and fever. HENT: Negative for congestion, ear pain and sore throat. Eyes: Negative for pain, discharge, redness and visual disturbance. Respiratory: Negative for cough, shortness of breath and wheezing. Cardiovascular: Negative for chest pain, palpitations and leg swelling. Gastrointestinal: Negative for abdominal pain, blood in stool, constipation, diarrhea, nausea and vomiting. Genitourinary: Negative for difficulty urinating, dysuria and frequency. Musculoskeletal: Negative for arthralgias, back pain, joint swelling and myalgias. Skin: Negative for rash and wound. Neurological: Negative for dizziness, tremors, seizures, syncope and headaches. Psychiatric/Behavioral: Negative for behavioral problems, self-injury and suicidal ideas. The patient is not nervous/anxious. Hematological: Does not bruise/bleed easily. Endocrine: Negative for polydipsia, polyphagia and polyuria. Allergic/Immunologic: Negative for environmental allergies and food allergies. PAST MEDICAL HISTORY Past Medical History: Diagnosis Date Abdominal pain 04/13/2023 Allergic rhinitis 04/13/2023 Anxiety and depression (CMS/HCC) 04/13/2023 Asymptomatic microscopic hematuria 04/13/2023 Bronchitis 04/13/2023 Cervical paraspinal muscle spasm Chest pain 04/13/2023 Class 1 obesity due to excess calories without serious comorbidity in adult 01/31/2023 DDD (degenerative disc disease), cervical 04/13/2023 Diverticulosis 04/13/2023 Dyspnea 04/13/2023 Hyperlipidemia (CMS/HCC) 04/13/2023 Hypertension (CMS/HCC) 04/13/2023 Hypothyroidism (CMS/HCC) 04/13/2023 Insect sting 04/13/2023 Insomnia 04/13/2023 Lumbar radiculopathy, acute 04/13/2023 Menopause 04/13/2023 Mild episode of recurrent major depressive disorder (HCC) (CMS/HCC) 01/31/2023 Obesity (BMI 30-39.9) 01/31/2023 Obstructive sleep apnea 04/13/2023 Osteopenia 04/13/2023 Paresthesia of both hands Pulmonary nodule 04/13/2023 Seasonal allergies 04/13/2023 Spinal stenosis, lumbar 04/13/2023 Tennis elbow 04/13/2023 Urinary incontinence in female 04/13/2023 Vitamin D deficiency 04/13/2023 Wrist fracture 04/13/2023 Past Surgical History: Procedure Laterality Date ARTHROSCOPY SHOULDER / OPEN SHOULDER 2013 CARPAL TUNNEL RELEASE Left 01/16/2017 Dr. Mccoy CERVICAL FUSION Posterior cervical fusion CHOLECYSTECTOMY COLONOSCOPY 04/2010 ELBOW SURGERY Tennis elbow FOOT SURGERY HAND SURGERY Right 01/17/2018 RT hand excision of duptyren nodule Dr. Mccoy HYSTERECTOMY ORIF WRIST FRACTURE OTHER SURGICAL HISTORY Right hav 5th ht MS REVISE ULNAR NERVE AT ELBOW Right 04/04/[address] Mccoy family history includes Heart disease in her father; Pancreatic cancer in her mother. OBJECTIVE: Visit Vitals BP 124/72 (BP Location: Left arm, Patient Position: Sitting, BP Cuff Size: Adult long) Pulse 80 Temp 97.8 F (Temporal) Resp 18 Ht 5' 7 Wt 189 lb SpO2 96% BMI 29.60 kg/m Smoking Status Never BSA 2.01 m Physical Exam Vitals and nursing note reviewed. Constitutional: General: She is not in acute distress. Appearance: Normal appearance. HENT: Head: Normocephalic and atraumatic. Right Ear: External ear normal. Left Ear: External ear normal. Nose: Nose normal. Mouth/Throat: Mouth: Mucous membranes are moist. Eyes: Extraocular Movements: Extraocular movements intact. Conjunctiva/sclera: Conjunctivae normal. Neck: Vascular: No carotid bruit. Cardiovascular: Rate and Rhythm: Normal rate and regular rhythm. Pulses: Normal pulses. Heart sounds: Normal heart sounds. Pulmonary: Effort: Pulmonary effort is normal. Breath sounds: Normal breath sounds. No wheezing, rhonchi or rales. Abdominal: General: Bowel sounds are normal. There is no distension. Palpations: Abdomen is soft. There is no mass. Tenderness: There is no abdominal tenderness. Musculoskeletal: General: Normal range of motion. Cervical back: Normal range of motion and neck supple. No rigidity or tenderness. Right lower leg: No edema. Left lower leg: No edema. Lymphadenopathy: Cervical: No cervical adenopathy. Skin: General: Skin is warm and dry. Capillary Refill: Capillary refill takes 2 to 3 seconds. Findings: No rash. Neurological: General: No focal deficit present. Mental Status: She is alert and oriented to person, place, and time. Psychiatric: Mood and Affect: Mood normal. Behavior: Behavior normal. Thought Content: Thought content normal. Judgment: Judgment normal. ASSESSMENT AND PLAN: Follow up in about 3 months (around 03/21/2024) for Recheck. Problem List Items Addressed This Visit Mixed hyperlipidemia (CMS/HCC) RESOLVED: Obesity (BMI 30-39.9) Anxiety and depression (CMS/HCC) No med dose changes Post-menopausal Relevant Orders DEXA bone density Obstructive sleep apnea Picked up new PAP machine today Osteopenia Continue w fosamax, will get an updated DEXA scan Relevant Orders DEXA bone density Hypothyroidism (CMS/HCC) Continue current meds Overweight (BMI 25.0-29.9) Encounter for subsequent annual wellness visit (AWV) in Medicare patient - Primary I have reviewed Ht/Wt/BMI, I have reviewed recommended vaccines for patient's age, as well as all recommended screenings I have reviewed available care everywhere notes as well. I have recommended eating a balanced diet, as well as activity as chronic conditions allow It is recommended that the patient have a yearly eye exam, as well as twice a year dental exams Hand out on living will and HCPOA Fu in this office for wellness on a yearly basis documented in this encounter [facility] 10-18-2023 History of Present illness Narrative Associated Problem(s): Obstructive sleep apnea Still with fatigue and waiting for PAP machine Pt given number to call office to see what is hold up Associated Problem(s): Anxiety and depression (CMS/HCC) Stable no med dose change Anxiety and depression- pt states she is doing good and takes her medication. Sleep-pt states that her sleep pattern is the same, still not wearing CPAP (a new cpap was never sent) Pt is still having fatigue off and on pt states she keeps herself busy and tries not to nap during the day. Pt states the rash she had on her bottom has completely cleared up Pt was in er on the due to a table falling on her left wrist-pt doing okay. Images from the original note were not included. Claudette Ross is a 68 y.o. female presents with chief complaint of No chief complaint on file. HPI: Had sleep study in July 2023: AHI 31, desat mid 80's She still has not heard from company on getting machine. It is [employer] [phone]. I spoke with Loraine at [facility], she also does not know why machine has not been delivered I gave pt phone number and have her contact the Depression and anxiety is good as well SUBJECTIVE: MEDICATIONS: Current Outpatient Medications Medication Instructions alendronate (FOSAMAX) 70 mg, Oral, Every 7 days, Take in the morning with a full glass of water, on an empty stomach, and do not take anything else by mouth or lie down for the next 30 min. ARIPiprazole (ABILIFY) 2 mg, Oral, Daily busPIRone (BUSPAR) 10 mg, Oral, Every 12 hours cetirizine (ZYRTEC) 10 mg, Oral, Daily levothyroxine (SYNTHROID, LEVOXYL) 75 mcg, Oral, Daily before breakfast montelukast (SINGULAIR) 10 mg, Oral, Nightly sertraline (ZOLOFT) 100 mg, Oral, 2 times daily simvastatin (ZOCOR) 20 mg, Oral, Nightly traZODone (DESYREL) 100 mg, Oral, Nightly ALLERGIES: Allergies Allergen Reactions Hydrocodone-Acetaminophen Vicodin Sulfamethoxazole-Trimethoprim Hives Codeine Rash Hydrocodone Rash Oxycodone Rash Oxycodone-Acetaminophen Rash But can take regular tylenol okay REVIEW OF SYMPTOMS: Review of Systems Constitutional: Positive for fatigue. Negative for appetite change, chills and fever. HENT: Negative for congestion, ear pain and sore throat. Eyes: Negative for pain, discharge, redness and visual disturbance. Respiratory: Negative for cough, shortness of breath and wheezing. Cardiovascular: Negative for chest pain, palpitations and leg swelling. Gastrointestinal: Negative for abdominal pain, blood in stool, constipation, diarrhea, nausea and vomiting. Genitourinary: Negative for difficulty urinating, dysuria and frequency. Musculoskeletal: Negative for arthralgias, back pain, joint swelling and myalgias. Skin: Negative for rash and wound. Neurological: Negative for dizziness, tremors, seizures, syncope and headaches. Psychiatric/Behavioral: Negative for behavioral problems, self-injury and suicidal ideas. The patient is not nervous/anxious. Hematological: Does not bruise/bleed easily. Endocrine: Negative for polydipsia, polyphagia and polyuria. Allergic/Immunologic: Negative for environmental allergies and food allergies. PAST MEDICAL HISTORY Past Medical History: Diagnosis Date Abdominal pain 04/13/2023 Allergic rhinitis 04/13/2023 Anxiety and depression (CMS/HCC) 04/13/2023 Asymptomatic microscopic hematuria 04/13/2023 Bronchitis 04/13/2023 Cervical paraspinal muscle spasm Chest pain 04/13/2023 Class 1 obesity due to excess calories without serious comorbidity in adult 01/31/2023 DDD (degenerative disc disease), cervical 04/13/2023 Diverticulosis 04/13/2023 Dyspnea 04/13/2023 Hyperlipidemia (CMS/HCC) 04/13/2023 Hypertension (CMS/HCC) 04/13/2023 Hypothyroidism (CMS/HCC) 04/13/2023 Insect sting 04/13/2023 Insomnia 04/13/2023 Lumbar radiculopathy, acute 04/13/2023 Menopause 04/13/2023 Mild episode of recurrent major depressive disorder (HCC) (CMS/HCC) 01/31/2023 Obesity (BMI 30-39.9) 01/31/2023 Obstructive sleep apnea 04/13/2023 Osteopenia 04/13/2023 Paresthesia of both hands Pulmonary nodule 04/13/2023 Seasonal allergies 04/13/2023 Spinal stenosis, lumbar 04/13/2023 Tennis elbow 04/13/2023 Urinary incontinence in female 04/13/2023 Vitamin D deficiency 04/13/2023 Wrist fracture 04/13/2023 Past Surgical History: Procedure Laterality Date ARTHROSCOPY SHOULDER / OPEN SHOULDER 2013 CARPAL TUNNEL RELEASE Left 01/16/2017 Dr. Mccoy CERVICAL FUSION Posterior cervical fusion CHOLECYSTECTOMY COLONOSCOPY 04/2010 ELBOW SURGERY Tennis elbow FOOT SURGERY HAND SURGERY Right 01/17/2018 RT hand excision of duptyren nodule Dr. Mccoy HYSTERECTOMY ORIF WRIST FRACTURE OTHER SURGICAL HISTORY Right hav 5th ht MS REVISE ULNAR NERVE AT ELBOW Right 04/04/[address] Mccoy family history includes Heart disease in her father; Pancreatic cancer in her mother. OBJECTIVE: Visit Vitals BP 112/76 (BP Location: Left arm, Patient Position: Sitting, BP Cuff Size: Adult long) Pulse 82 Temp 97.3 F (Temporal) Resp 18 Ht 5' 7 Wt 190 lb 6.4 oz SpO2 96% BMI 29.82 kg/m Smoking Status Never BSA 2.02 m Physical Exam Vitals and nursing note reviewed. Constitutional: General: She is not in acute distress. Appearance: Normal appearance. HENT: Head: Normocephalic and atraumatic. Right Ear: External ear normal. Left Ear: External ear normal. Nose: Nose normal. Mouth/Throat: Mouth: Mucous membranes are moist. Eyes: Extraocular Movements: Extraocular movements intact. Conjunctiva/sclera: Conjunctivae normal. Neck: Vascular: No carotid bruit. Cardiovascular: Rate and Rhythm: Normal rate and regular rhythm. Pulses: Normal pulses. Heart sounds: Normal heart sounds. Pulmonary: Effort: Pulmonary effort is normal. Breath sounds: Normal breath sounds. Abdominal: General: Bowel sounds are normal. There is no distension. Palpations: Abdomen is soft. There is no mass. Tenderness: There is no abdominal tenderness. Musculoskeletal: General: Normal range of motion. Cervical back: Normal range of motion and neck supple. Right lower leg: No edema. Left lower leg: No edema. Lymphadenopathy: Cervical: No cervical adenopathy. Skin: General: Skin is warm and dry. Capillary Refill: Capillary refill takes 2 to 3 seconds. Findings: No rash. Neurological: General: No focal deficit present. Mental Status: She is alert and oriented to person, place, and time. Psychiatric: Mood and Affect: Mood normal. Behavior: Behavior normal. Thought Content: Thought content normal. Judgment: Judgment normal. ASSESSMENT AND PLAN: No follow-ups on file. Problem List Items Addressed This Visit Mixed hyperlipidemia (CMS/HCC) Relevant Medications simvastatin (Zocor) 20 MG tablet Obesity (BMI 30-39.9) Anxiety and depression (CMS/HCC) Stable no med dose change Relevant Medications ARIPiprazole (Abilify) 2 MG tablet busPIRone (Buspar) 10 MG tablet sertraline (Zoloft) 100 MG tablet traZODone (Desyrel) 50 MG tablet Allergic rhinitis Relevant Medications cetirizine (ZyrTEC) 10 MG tablet montelukast (Singulair) 10 MG tablet Obstructive sleep apnea Still with fatigue and waiting for PAP machine Pt given number to call office to see what is hold up Urinary incontinence in female Relevant Medications mirabegron ER (Myrbetriq) 50 MG 24 hr tablet Osteopenia Relevant Medications alendronate (Fosamax) 70 MG tablet Vitamin D deficiency Relevant Medications cholecalciferol (Vitamin D-3) 125 MCG (5000 UT) capsule Hypothyroidism (CMS/HCC) Relevant Medications levothyroxine (Synthroid, Levoxyl) 75 MCG tablet Encounter for screening mammogram for malignant neoplasm of breast - Primary Relevant Orders Bilateral screening mammogram documented in this encounter [facility] 12-09-2021 Note PROCEDURE: XR HIP RT 2 3V WO PELVIS HISTORY: Pain in right hip joint , acute; no known injury COMPARISON: None. FINDINGS: BONES:No fracture, acute abnormality, or significant arthropathy. SOFT TISSUES:No visible soft tissue swelling. EFFUSION:None visible. OTHER: Negative. IMPRESSION: 1. No acute bone abnormality or significant degenerative joint disease. Electronically authenticated by: JEROME AYALA Date: 2021-12-09 06:48 [facility] 11-03-2021 Hospital Discharge instructions Patient Education 11/03/2021 15:47:31 Overactive Bladder, [...] fried and sweet foods. General instructions Take [id number] and prescription medicines only as told by [...] 12/03/2009 Document Revised: 05/30/2019 Document Reviewed: 02/22/2018 [employer] Patient Education 2020 [employer] Follow Up Care 10/15/2021 09:20:30 With:ISABELLA MCGHEE, LINDA Young, URL Address: [address] [place] [address] When:1 year [facility] Note Procedure: Portable AP view of [...] Signed, Electronically Signed in Other Vendor System) [facility] Evaluation + Plan note Future Appointments Appointment Date:11/09/2022 02:00:00 PM Scheduled Provider:LINDA MASON PA-C Location:[facility] [place] Appointment Type:URO Office Visit [facility] Evaluation note No assessment inform ation available [facility] Work Phone: Evaluation note Diagnosis Mild episode of recurrent major depressive disorder (HCC) (CMS/HCC)- Primary Obesity (BMI 30-39.9) Anxiety and depression (CMS/HCC)- Primary Primary hypertension (CMS/HCC) Unspecified essential hypertension Asymptomatic microscopic hematuria Osteopenia, unspecified location Vitamin D deficiency Mixed hyperlipidemia (CMS/HCC) Mixed hyperlipidemia Hypothyroidism, unspecified type (CMS/HCC) Obesity (BMI 30-39.9) Mild episode of recurrent major depressive disorder (HCC) (CMS/HCC) Allergic rhinitis, unspecified seasonality, unspecified trigger Skin candidiasis Candidiasis of skin and nails Obstructive sleep apnea- Primary Obstructive sleep apnea (adult) (pediatric) Allergic rhinitis, unspecified seasonality, unspecified trigger Anxiety and depression (CMS/HCC) Mixed hyperlipidemia (CMS/HCC) Mixed hyperlipidemia Osteopenia, unspecified location Vitamin D deficiency Hypothyroidism, unspecified type (CMS/HCC) Urinary incontinence in female Primary hypertension (CMS/HCC) Unspecified essential hypertension Skin candidiasis Candidiasis of skin and nails Class 1 obesity due to excess calories without serious comorbidity with body mass index (BMI) of 31.0 to 31.9 in adult Encounter for screening mammogram for malignant neoplasm of breast Osteopenia, unspecified location Anxiety and depression (CMS/HCC) Allergic rhinitis, unspecified seasonality, unspecified trigger Vitamin D deficiency Hypothyroidism, unspecified type (CMS/HCC) Urinary incontinence in female Mixed hyperlipidemia (CMS/HCC) Mixed hyperlipidemia Obesity (BMI 30-39.9) Obstructive sleep apnea Obstructive sleep apnea (adult) (pediatric) Encounter for subsequent annual wellness visit (AWV) in Medicare patient- Primary Obesity (BMI 30-39.9) Hypothyroidism, unspecified type (CMS/HCC) Mixed hyperlipidemia (CMS/HCC) Mixed hyperlipidemia Anxiety and depression (CMS/HCC) Overweight (BMI 25.0-29.9) Overweight Obstructive sleep apnea Obstructive sleep apnea (adult) (pediatric) Osteopenia, unspecified location Post-menopausal Asymptomatic postmenopausal status (age-related) (natural) documented in this encounter [facility] Diagnosis Encounter for screening mammogram for malignant neoplasm of breast Osteopenia, unspecified location Anxiety and depression (CMS/[facility]) Allergic rhinitis, unspecified seasonality, unspecified trigger Vitamin D deficiency Hypothyroidism, unspecified type (CMS/HCC) Urinary incontinence in female Mixed hyperlipidemia (CMS/HCC) Mixed hyperlipidemia Obesity (BMI 30-39.9) Obstructive sleep apnea Obstructive sleep apnea (adult) (pediatric) documented in this encounter [facility]* Diagnosis Mild episode of recurrent major depressive disorder (HCC) (CMS/HCC)- Primary Obesity (BMI 30-39.9) Anxiety and depression (CMS/HCC)- Primary Primary hypertension (CMS/[facility]) Unspecified essential hypertension Asymptomatic microscopic hematuria Osteopenia, unspecified location Vitamin D deficiency Mixed hyperlipidemia (CMS/HCC) Mixed hyperlipidemia Hypothyroidism, unspecified type (CMS/HCC) Obesity (BMI 30-39.9) Mild episode of recurrent major depressive disorder (HCC) (CMS/HCC) Allergic rhinitis, unspecified seasonality, unspecified trigger Skin candidiasis Candidiasis of skin and nails Obstructive sleep apnea- Primary Obstructive sleep apnea (adult) (pediatric) Allergic rhinitis, unspecified seasonality, unspecified trigger Anxiety and depression (CMS/HCC) Mixed hyperlipidemia (CMS/HCC) Mixed hyperlipidemia Osteopenia, unspecified location Vitamin D deficiency Hypothyroidism, unspecified type (CMS/HCC) Urinary incontinence in female Primary hypertension (CMS/HCC) Unspecified essential hypertension Skin candidiasis Candidiasis of skin and nails Class 1 obesity due to excess calories without serious comorbidity with body mass index (BMI) of 31.0 to 31.9 in adult Encounter for screening mammogram for malignant neoplasm of breast Osteopenia, unspecified location Anxiety and depression (CMS/HCC) Allergic rhinitis, unspecified seasonality, unspecified trigger Vitamin D deficiency Hypothyroidism, unspecified type (CMS/HCC) Urinary incontinence in female Mixed hyperlipidemia (CMS/HCC) Mixed hyperlipidemia Obesity (BMI 30-39.9) Obstructive sleep apnea Obstructive sleep apnea (adult) (pediatric) Encounter for subsequent annual wellness visit (AWV) in Medicare patient- Primary Obesity (BMI 30-39.9) Hypothyroidism, unspecified type (CMS/HCC) Mixed hyperlipidemia (CMS/HCC) Mixed hyperlipidemia Anxiety and depression (CMS/HCC) Overweight (BMI 25.0-29.9) Overweight Obstructive sleep apnea Obstructive sleep apnea (adult) (pediatric) Osteopenia, unspecified location Post-menopausal Asymptomatic postmenopausal status (age-related) (natural) Primary hypertension (CMS/HCC)- Primary Unspecified essential hypertension Obstructive sleep apnea Obstructive sleep apnea (adult) (pediatric) Hypothyroidism, unspecified type (CMS/HCC) Overweight (BMI 25.0-29.9) Overweight Osteopenia, unspecified location Anxiety and depression (CMS/HCC) Asymptomatic microscopic hematuria Vitamin D deficiency Mixed hyperlipidemia (CMS/HCC) Mixed hyperlipidemia Needs flu shot Need for prophylactic vaccination and inoculation against influenza Allergic rhinitis, unspecified seasonality, unspecified trigger [facility] Narrative No data available for this section [facility] Hospital Discharge instructions No data available for this section [facility] progress note No data available for this section [facility] Summary Purpose Family History No Family History Records FoundNo Family History Records FoundNo Family History Records FoundNo Family History Records FoundNo Family History Records FoundNo Family History Records FoundNo Family History Records FoundNo Family History Records Found Advance Directives Advance Directive Response Recorded Date/ Time Advance Directives No March 11, 2022 10:04am Hospital Course Note MR#: [id number] [facility] Pt. Name: Claudette Ross Admitted: 03/05/2019 Discharged: 03/06/2019 Date of : 1955 Physician: Ralph Zavala MD DISCHARGE SUMMARY PRIMARY CARE PHYSICIAN: Jessica [...] and she was transported via EMS to [facility]. In [place], an EKG was done that showed no significant changes and initial t (more content not included)... Chief Complaint and Reason for Visit Chief Complaint m20.11 Additional Source Comments INFORMATION SOURCE (unrecogn ized section and content) DATE CREATED AUTHOR 08/08/2017 [facility] DATE CREATED AUTHOR AUTHOR'S ORGANIZ ATION 03/19/2019 [facility] DATE CREATED AUTHOR AUTHOR'S ORGANIZ ATION 03/19/2021 [facility] DATE CREATED AUTHOR AUTHOR'S ORGANIZ ATION 04/06/2021 [facility] DATE CREATED AUTHOR AUTHOR'S ORGANIZ ATION 03/26/2022 [facility] DATE CREATED AUTHOR AUTHOR'S ORGANIZ ATION 06/22/2022 [facility] DATE CREATED AUTHOR AUTHOR'S ORGANIZ ATION 11/11/2022 [facility] DATE CREATED AUTHOR AUTHOR'S ORGANIZ ATION 12/22/2023 [facility] Care Team (unrecognized sect ion and content) Team Status: Inactive Member Role Status Dates Jessica Sosa Primary Care Provider Active Yordan Batres DPM Attending Provider Active Team Status: Active Member Role Status Dates Jessica Sosa Primary Care Provider Active [employer] Plant Supervisor Relationship Specialty Start Date End Date Pop Carreon MD [address] [place] [phone] PCP - General Family Medicine 04/13/23 Jessica Sosa NP [address] [place] [phone] Nurse Practitioner Family Medicine 04/13/23 [employer] Supervisor Relationship Specialty Start Date End Date Pop Carreon MD [address] [place] [phone] PCP - General Family Medicine 04/13/23 Jessica Sosa NP [address] [place] [phone] Nurse Practitioner Family Medicine 04/13/23 [employer] Plant Supervisor Relationship Specialty Start Date End Date Pop Carreon MD [address] [place] [phone] PCP - General Family Medicine 04/13/23 Jessica Sosa NP [address] [place] [phone] Nurse Practitioner Family Medicine 04/13/23 [employer] Plant Supervisor Relationship Specialty Start Date End Date Pop Carreon MD [address] [place] [phone] PCP - General Family Medicine 04/13/23 Jessica Sosa NP [address] [place] [phone] Nurse Practitioner Family Medicine 04/13/23 Preparation Plant Supervisor Relationship Specialty Start Date End Date Pop Carreon MD [address] [place] [phone] PCP - General [facility] 04/13/23 Jessica Sosa NP [address] [place] [phone] Nurse Practitioner Family Medicine 04/13/23 Meghana Canseco DO [address] [place] [address] Referring Physician Neurology 03/15/24 [employer] Plant Supervisor Relationship Specialty Start Date End Date Pop Carreon MD [address] [place] [phone] PCP - General [facility] 04/13/23 Jessica Sosa NP [address] [place] [phone] Nurse Practitioner [facility] 04/13/23 Meghana Canseco DO [address] [place] [address] Referring Physician Neurology 03/15/24 Goals (unrecognized section and content) Goals may [...] BE BASED ON THE PRIMARY CLINICAL RECORDS. [facility] [employer] [facility] provides no warranty or guarantee of the accuracy or completeness of information in this document.
== END 2024-03-26 20:03 | disposition home or self-care (01) ==
LOC: SLEEP 20:02
PROVIDERS: PCP Psychiatry & Neurology Neurology; Visit Provider Psychiatry & Neurology Neurology
DX: G47.33 Obstructive sleep apnea (adult) (pediatric) (principal)
CPT/HCPCS: 95811

== ENCOUNTER 2024-04-03 09:21 | Outpatient (OUT) | payer MEDICARE, MEDICAID, SELFPAY ==
--- OUTSIDE RECORDS SUMMARY | 2024-04-03 09:38 | XMS_ITS | CCD ---
Demographics Address [address] [place] [address] Preferred Language en Marital Status Single Latter-Day Affiliation Unknown Race White Ethnic Group Not or Lati no Author Organization [facility] Care Team Providers Care Loan Inspector Name Role Phone Conrado Mccoy Unavailable Unavail able Conrado Mccoy Unavailable Unavail able Provider, Unlisted Unavailable Unavailable Jackelin Espinal Unavailable Unavailable Conrado Mccoy Unavailable Unavail able Conrado Mccoy Unavailable Unavail able Provider, Unlisted Unavailable Unavailable Conrado Ramos Unavailable Unavailable Theodore Guevara Unavailable Unavailable Conrado Mccoy Unavailable Unavail able Conrado Mccoy Unavailable Unavail able Provider, Unlisted Unavailable Unavailable ROHINI ZAVALAI Admitting Unavailable ROHINI ZAVALAI Attending Unavailable ZAHIDA BARKER Referring Unavailable RAGHAV SOSAA Primary Care Unavailable MD NIDHI MICHAELS Attending Unavailable MD NIDHI MICHAELS Primary Care Unavailable MD NIDHI MICHAELS Primary Care Unavailable MD NIDHI MICHAELS Consulting Unavailable MD SLICK TARIQ Attending Unavailab JESSICA Egan Primary Care Physician Jessica Sosa Primary Care Provider [phone] RADHA Batres Attending Provider Jessica Sosa Primary Care Unavailable Yordan Batres Attending Unavailable Yordan Batres Admitting Unavailable AICCARLOS, RODNEY NEELY Admitting Unavailable AICRODNEY GONZALEZ Attending Unavailable IAN, RODNEY JESSICA Consulting Unavailable RODNEY SOSA JESSICA Primary Care Unavailable IAN, RODNEY JESSICA Admitting Unavailable DR JACKELIN TAMAYO V Consulting Unavailable AICHHOLZ, PERSONALIZED LIVING MANAGER JESSICA Attending Unavailable AICHHOLZ, PERSONALIZED LIVING MANAGER JESSICA Primary Care Unavailable AICHHOLZ, PERSONALIZED LIVING MANAGER JESSICA Consulting Unavailable JACKELIN BATRES Consulting Unavailable AICHHOLZ, PERSONALIZED LIVING MANAGER JESSICA Admitting Unavailable AICHHOLZ, PERSONALIZED LIVING MANAGER JESSICA Attending Unavailable AICHHOLZ, PERSONALIZED LIVING MANAGER JESSICA Consulting Unavailable AICHHOLZ, PERSONALIZED LIVING MANAGER JESSICA Primary Care Unavailable DR JEROME AYALA Consulting Unavailable AICHHOLZ, PERSONALIZED LIVING MANAGER JESSICA Admitting Unavailable AICHHOLZ, PERSONALIZED LIVING MANAGER JESSICA Attending Unavailable AICHHOLZ, PERSONALIZED LIVING MANAGER JESSICA Consulting Unavailable AICHHOLZ, PERSONALIZED LIVING MANAGER JESSICA Primary Care Unavailable JOSE DE JESUS PEREZ Consulting Unavailable AICHHOLZ, PERSONALIZED LIVING MANAGER JESSICA Primary Care Unavailable AICHHOLZ, PERSONALIZED LIVING MANAGER JESSICA Attending Unavailable AICHHOLZ, PERSONALIZED LIVING MANAGER JESSICA Admitting Unavailable AICHHOLZ, PERSONALIZED LIVING MANAGER JESSICA Consulting Unavailable AICHHOLZ, PERSONALIZED LIVING MANAGER JESSICA Admitting Unavailable AICHHOLZ, PERSONALIZED LIVING MANAGER JESSICA Attending Unavailable AICHHOLZ, PERSONALIZED LIVING MANAGER JESSICA Primary Care Unavailable AICHHOLZ, PERSONALIZED LIVING MANAGER JESSICA Admitting Unavailable AICHHOLZ, PERSONALIZED LIVING MANAGER JESSICA Attending Unavailable AICHHOLZ, PERSONALIZED LIVING MANAGER JESSICA Consulting Unavailable AICHHOLZ, PERSONALIZED LIVING MANAGER JESSICA Primary Care Unavailable DR JEROME AYALA Consulting Unavailable LINDA MASON Attending Unavailable Pop Carreon MD Primary Care Provider [phone] Aichholz ORACLE APPLICATIONS ANALYST, Jessica Unavailable Meghana Canseco DO Unavailable AICHHOLZ, JESSICA Attending Unavailable AICHHOLZ, JESSICA Attending Unavailable AICHHOLZ, JESSICA Attending Unavailable AICHHOLZ, JESSICA Attending Unavailable AICHHOLZ, JESSICA Attending Unavailable Allergies Allergy Classification Reported Allergen(s) Allergy Type Date of Onset Reaction(s) Facility (5 sources) acetaminophen / HYDROcodone; Translations: [Vicodin] Drug Allergy 3 Eruption of skin (disorder) [facility] (1 source) acetaminophen / oxyCODONE; Translations: [Percocet 5325] Drug Allergy AOF [facility] (18 sources) codeine; Translations: [codeine] Drug Allergy 0 Eruption of skin (disorder), Weal (disorder), Rash [facility] (2 sources) Acetaminophen / oxyCODONE Drug Allergy 0 [facility] (3 sources) Acetaminophen; Translations: [acetaminophen] Drug Allergy Weal (disorder) [facility] (3 sources) Acetaminophen / oxyCODONE; Translations: [acetaminophen-oxyco done] Drug Allergy Cutaneous eruption (morphologic abnormality) [facility] (3 sources) acetaminophen / propoxyphene; Translations: [acetaminophen-propo xyphene] Drug Allergy Eruption of skin (disorder) [facility] (3 sources) Cortisone; Translations: [cortisone] Drug Allergy 6 Unknown [facility] (12 sources) oxyCODONE; Translations: [oxycodone] Drug Allergy 3 Weal (disorder), Rash [facility] (1 source) Cortisone Drug Allergy 6 [facility] (1 source) Penicillins Drug allergy (disorder) 3 [facility] (1 source) Darvocet-N 100 Drug allergy (disorder) 0 [facility] (1 source) Codeine; Translations: [codeine sulfate] Drug Allergy [facility] (9 sources) Acetaminophen / HYDROcodone Drug Allergy 3 [facility] (9 sources) Acetaminophen / oxyCODONE Drug Allergy 7 Rash [facility] (9 sources) HYDROcodone Drug Allergy 3 Rash [facility] (9 sources) Sulfamethoxazole / Trimethoprim Drug Allergy 3 Hives [facility] Medications Current Medications Medication Drug Class(es) [...] BID, # 60 tab(s), Refills(s) 11, Pharmacy: [facility]/pharmacy #[id number], 165.1, cm, 03/31/20 9:27:00 EST, Height/Length Dosing, [...] presen t Genitourinary symptoms and ill-defined conditions (18 [...] 05-25-2022 BASO # 0.0 103/ul Normal 0.0-0.1 [facility] Comment on above: Performed By: #### C BC #### [facility] [address] [address] [address] Dedrick Kinsey Basophils/100 WBC (Bld) 0.5 % Normal 0.2-2.0 [facility] Comment on above: Performed By: #### C BC #### [facility] [address] [address] [address] Dedrick Kinsey EO # 0.1 103/ul Normal 0.0-0.7 [facility] Comment on above: Performed By: #### C BC #### [facility] [address] [address] [address] Dedrick Kinsey Eosinophils/100 WBC (Bld) 2.5 % Normal 0.9-7.0 [facility] Comment on above: Performed By: #### C BC #### [facility] [address] [address] [address] Dedrick Kinsey Erythrocyte distribution width (RBC) [Ratio] 13.2 % Normal 11.0-15.0 [facility] Comment on above: Performed By: #### C BC #### [facility] [address] [place] [address] Dr. Dedrick Kinsey Hematocrit (Bld) [Volume fraction] 37.5 % Normal 36.0-48.0 [facility] Comment on above: Performed By: #### C BC #### [facility] [address] [place] [address] Dr. Dedrick Kinsey Hemoglobin (Bld) [Mass/Vol] 12.6 g/dL Normal 12.0-16.0 [facility] Comment on above: Performed By: #### C BC #### [facility] [address] [place] [address] Dr. Dedrick Kinsey IG # 0.01 10e3/ul Normal 0.00-0.03 [facility] Comment on above: Performed By: #### C BC #### [facility] [address] [place] [address] Dr. Dedrick Kinsey IG % 0.2 % Normal 0.0-0.5 [facility] Comment on above: Performed By: #### C BC #### [facility] [address] [place] [address] Dr. Dedrick Kinsey LYMPH # 1.5 103/ul Normal 1.2-3.8 [facility] Comment on above: Performed By: #### C BC #### [facility] [address] [place] [address] Dr. Dedrick Kinsey Lymphocytes/100 WBC (Bld) 34.0 % Normal 20.5-60.0 [facility] Comment on above: Performed By: #### C BC #### [facility] [address] [place] [address] Dr. Dedrick Kinsey MANUAL DIFF REQ NO Normal [facility] Comment on above: Performed By: #### C BC #### [facility] [address] [place] [address] Dr. Dedrick Kinsey MCH (RBC) [Entitic mass] 29.9 pg Normal 26.7-34.0 [facility] Comment on above: Performed By: #### C BC #### [facility] [address] [address] [address] Dedrick Kinsey MCHC (RBC) [Mass/Vol] 33.6 g/dL Normal 29.9-35.2 [facility] Comment on above: Performed By: #### C BC #### [facility] [address] [address] [address] Dedrick Kinsey MCV (RBC) [Entitic vol] 89.1 fL Normal 81.0-99.0 [facility] Comment on above: Performed By: #### C BC #### [facility] [address] [address] [address] Dedrick Kinsey MONO # 0.4 103/ul Normal 0.3-0.8 [facility] Comment on above: Performed By: #### C BC #### [facility] [address] [place] [address] Dr. Dedrick Kinsey Monocytes/100 WBC (Bld) 9.0 % Normal 1.7-12.0 [facility] Comment on above: Performed By: #### C BC #### [facility] [address] [place] [address] Dr. Dedrick Kinsey NEUT # 2.3 103/ul Normal 1.4-6.5 [facility] Comment on above: Performed By: #### C BC #### [facility] [address] [place] [address] Dr. Dedrick Kinsey Neutrophils/100 WBC (Bld) 53.8 % Normal 43.0-75.0 [facility] Comment on above: Performed By: #### C BC #### [facility] [address] [place] [address] Dr. Dedrick Kinsey Platelet mean volume (Bld) [Entitic vol] 9.2 fL Critically low 9.5-13.5 [facility] Comment on above: Performed By: #### C BC #### [facility] [address] [place] [address] Dr. Dedrick Kinsey PLT 188 103/ul Normal 150-450 [facility] Comment on above: Performed By: #### C BC #### [facility] [address] [address] [address] Dedrick Kinsey RBC 4.21 106/ul Normal 4.20-5.40 [facility] Comment on above: Performed By: #### C BC #### [facility] [address] [address] [address] Dedrick Kinsey WBC 4.4 103/ul Normal 4.0-11.0 [facility] Comment on above: Performed By: #### C BC #### [facility] [address] [address] [address] Dedrick Kinsey FREE T4on 05-25-2022 Free T4 [Mass/Vol] 0.79 ng/dL Normal 0.76-1.46 [facility] Comment on above: Performed By: #### V ITAD, FT4 ####[facility] [address] [address]Dr[address] Dedrick Kinsey LIPID PROFILEon 05-25-2022 CHOL-HDL RATIO NORM SEE BELOW Normal [facility] Comment on above: Result Comment: 3.3 - 4.4 LOW RISK 4.4 - 7.1 AVERAGE RISK 7.1 - 11.0 MODERATE RISK >11.0 HIGH RISK Performed By: #### T SH, CMP, LIPID ####[facility] [address] [address]Dr[address] Dedrick Kinsey Cholesterol [Mass/Vol] 175 mg/dL Normal <=200 [facility] Comment on above: Performed By: #### T SH, CMP, LIPID ####[facility] [address] [address]Dr[address] Dedrick Kinsey Cholesterol in HDL [Mass/Vol] 39 mg/dL Critically low 40-60 [facility] Comment on above: Performed By: #### T SH, CMP, LIPID ####[facility] [address] [address]DrChanda Kinsey Cholesterol in LDL [Mass/Vol] 113.6 mg/dL Normal [facility] Comment on above: Performed By: #### T SH, CMP, LIPID ####[facility] [address] [address]Dr[address] Dedrick Kinsey Cholesterol.total/Cho lesterol in HDL [Mass ratio] 4.5 {ratio} Normal [facility] Comment on above: Performed By: #### T SH, CMP, LIPID ####[facility] [address] [address]Dr. Dedrick Kinsey HDL NORMAL > or = 60 mg/dl - LO W CARDIOVASCULAR RISK <40 mg/dl - HIGH CARDIOVASCULAR RISK Normal [facility] Comment on above: Performed By: #### T SH, CMP, LIPID ####[facility] [address] [address]Dr. Dedrick Kinsey LDL CALC NORMAL SEE BELOW Normal [facility] Comment on above: Result Comment: <100 mg/dl OPTIMAL 100 - 129 mg/dl NEAR OR ABOVE OPTIMAL 130 - 159 mg/dl BORDERLINE HIGH 160 - 189 mg/dl HIGH >190 mg/dl VERY HIGH Performed By: #### T SH, CMP, LIPID ####[facility] [address] [address]Dr[address] Dedrick Kinsey Triglyceride [Mass/Vol] 112 mg/dL Normal <=150 [facility] Comment on above: Performed By: #### T SH, CMP, LIPID ####[facility] [address] [address]Dr. Dedrick Kinsey VLDL CALC 22.4 mg/dL Normal [facility] Comment on above: Performed By: #### T SH, CMP, LIPID ####[facility] [address] [address]Dr. Dedrick Kinsey PROF 14(COMP METB)on 023 Albumin [Mass/Vol] 3.5 g/dL Normal 3.4-5.0 [facility] Comment on above: Performed By: #### T SH, CMP, LIPID ####[facility] [address] [address]Dr[address] Dedrick Kinsey Albumin/Globulin [Mass ratio] 1.0 {ratio} Normal [facility] Comment on above: Performed By: #### T SH, CMP, LIPID ####[facility] [address] [address]Dr. Dedrick Kinsey ALP [Catalytic activity/Vol] 84 U/L Normal 46-116 [facility] Comment on above: Performed By: #### T SH, CMP, LIPID ####[facility] [address] [address]Dr. Dedrick Kinsey ALT [Catalytic activity/Vol] 37 U/L Normal 14-59 [facility] Comment on above: Performed By: #### T SH, CMP, LIPID ####[facility] [address] [address]Dr. Dedrick Kinsey Anion gap [Moles/Vol] 11.7 mmol/L Normal [facility] Comment on above: Performed By: #### T SH, CMP, LIPID ####[facility] [address] [address]Dr. Dedrick Kinsey AST [Catalytic activity/Vol] 20 U/L Normal 15-37 [facility] Comment on above: Performed By: #### T SINTIA, CMP, LIPID ####[facility] [address] [place], [place] [address]Dr. Dedrick Kinsey Bilirubin [Mass/Vol] 0.8 mg/dL Normal 0.2-1.0 [facility] Comment on above: Performed By: #### T SH, CMP, LIPID ####[facility] [address] [place], [place] [address]Dr. Dedrick Kinsey Calcium [Mass/Vol] 9.4 mg/dL Normal 8.5-10.1 [facility] Comment on above: Performed By: #### T SH, CMP, LIPID ####[facility] [address] [address]Dr. Dedrick Kinsey Chloride [Moles/Vol] 106 mmol/L Normal 98-107 [facility] Comment on above: Performed By: #### T SH, CMP, LIPID ####[facility] [address] [address]Dr[address] Dedrick Kinsey CO2 [Moles/Vol] 28.4 mmol/L Normal 21.0-32.0 [facility] Comment on above: Performed By: #### T SH, CMP, LIPID ####[facility] [address] [address]Dr[address] Dedrick Kinsey Creatinine [Mass/Vol] 0.77 mg/dL Normal 0.55-1.02 [facility] Comment on above: Performed By: #### T SH, CMP, LIPID ####[facility] [address] [place], [place] [address]Iq. Dedrick Kinsey EGFR-AF ISRAELI >60 Normal >=60 [facility] Comment on above: Performed By: #### T SH, CMP, LIPID ####[facility] [address] [address]Dr[address] Dedrick Kinsey EGFR-NON AF ISRAELI >60 Normal >=60 [facility] Comment on above: Performed By: #### T SINTIA, CMP, LIPID ####[facility] [address] [address]Dr[address] Dedrick Kinsey Globulin (S) [Mass/Vol] 3.6 g/dL Normal [facility] Comment on above: Performed By: #### T SINTIA, CMP, LIPID ####[facility] [address] [address] Dedrick Kinsey Glucose [Mass/Vol] 106 mg/dL Normal 74-106 [facility] Comment on above: Performed By: #### T SINTIA, CMP, LIPID ####[facility] [address] [address]Dr[address] Dedrick Kinsey Potassium [Moles/Vol] 4.1 mmol/L Normal 3.5-5.1 [facility] Comment on above: Performed By: #### T SH, CMP, LIPID ####[facility] [address] [address]Dr[address] Dedrick Kinsey Protein [Mass/Vol] 7.1 g/dL Normal 6.4-8.2 [facility] Comment on above: Performed By: #### T SH, CMP, LIPID ####[facility] [address] [address]Dr[address] Dedrick Kinsey Sodium [Moles/Vol] 142 mmol/L Normal 136-145 [facility] Comment on above: Performed By: #### T SH, CMP, LIPID ####[facility] [address] [address]Dr[address] Dedrick Kinsey Urea nitrogen [Mass/Vol] 10.0 mg/dL Normal 7.0-18.0 [facility] Comment on above: Performed By: #### T SINTIA, CMP, LIPID ####[facility] [address] [address]Dr[address] Dedrick Kinsey Urea nitrogen/Creatinine [Mass ratio] 13.0 mg/mg Normal [facility] Comment on above: Performed By: #### T SINTIA, CMP, LIPID ####[facility] [address] [address]Dr. Dedrick Kinsey TSHon 05-25-2022 TSH 2.611 uIU/mL Normal 0.358-3.74 0 [facility] Comment on above: Performed By: #### T SINTIA, CMP, LIPID ####[facility] [address] [address]Dr. Dedrick Kinsey VITAMIN D 25 OHon 05-25-2022 VIT D 25-OH 31.7 ng/mL Normal [facility] Comment on above: Performed By: #### V EWA, FT4 ####[facility] [address] [address]Dr. Dedrick Kinsey VIT D RANGES SEE BELOW Normal [facility] Comment on above: Result Comment: <20 ng/mL Vit D deficient 20 - <30 ng/mL Vit D insufficient 30 - 100 ng/mL Vit D sufficient >100 ng/mL Potential Toxicity Performed By: #### Carlos MCNEIL, FT4 ####[facility] [address] [address]Dr. Dedrick Kinsey XR CSPINE 2_3 VIEWSon 2022 [...] JEROME AYALA Date: 2022-05-25 11:30 Normal [facility] XR TSPINE 3 VIEWSon 05-26-19 23 XR [...] JEROME AYALA Date: 2022-05-25 11:32 Normal [facility] XR CHEST 2 Von 05-09-2022 XR CHEST [...] JESUS PEREZ Date: 2022-05-09 12:45 Normal [facility] SARS-CoV-2 (COVID-19) RNA JAYY+probe Ql (Unsp spec) Not detected Normal NOT DETECTED [facility] Comment on above: Result Comment: When diagnostic [...] for this test is supported by the [employer] of Health and Human Service's declaration that [...] longer be used). Performed By: #### C [facility] ####[facility] [address] [place], [place] [address]JoChanda Dedrick Kinsey Basic Metabolic Panelon 02-21 Anion gap [Moles/Vol] 11.2 mmol/L Normal 6.0-15.0 [facility] Comment on above: Order Comment: Reason for Exam HAV (hallux abducto valgus), right Performed By: #### C BC, BMP #### [facility] [address] Calcium [Mass/Vol] 9.2 mg/dL Normal 8.2-10.2 [facility] Comment on above: Order Comment: Reason for Exam HAV (hallux abducto valgus), right Result Comment: PERF ORMED BY: [facility] [address] [facility] [place] [address] PATHOLOGIST CAN VACUUM TESTER SHRUTHI KIRKPATRICK M.D. Performed By: #### C BC, BMP #### [facility] [address] [id number] [place] Chloride [Moles/Vol] 102 mmol/L Normal 95-114 [facility] Comment on above: Order Comment: Reason for Exam HAV (hallux abducto valgus), right Performed By: #### C BC, BMP #### [facility] [address] [id number] [place] CO2 [Moles/Vol] 27.0 mmol/L Normal 22.0-30.0 [facility] Comment on above: Order Comment: Reason for Exam HAV (hallux abducto valgus), right Performed By: #### C BC, BMP #### [facility] [address] [id number] [facility] Creatinine [Mass/Vol] 0.80 mg/dL Normal 0.44-1.03 [facility] Comment on above: Order Comment: Reason for Exam HAV (hallux abducto valgus), right Performed By: #### C BC, BMP #### [address] Estimated GFR ( Kate > 60 [facility] Comment on above: Order Comment: Reason for Exam HAV (hallux abducto valgus), right Result Comment: GFR estimated reference range: According to KDOQI guidelines, <60 ml/min/1.73m2 is sufficient to diagnose a patient with chronic kidney disease. Performed By: #### C BC, BMP #### [facility] [address] [place] [address] [place] Estimated GFR (Non- Am > 60 [facility] Comment on above: Order Comment: Reason for Exam HAV (hallux abducto valgus), right Performed By: #### C BC, BMP #### [facility] [address] [id number] [place] Glucose [Mass/Vol] 99 mg/dL Normal 70-100 [facility] Comment on above: Order Comment: Reason for Exam HAV (hallux abducto valgus), right Result Comment: [place] Glucose Reference Range is dependent on time and content of last meal. Glucose of more than 200 mg/dL in a nonstressed, ambulatory subject supports the diagnosis of Diabetes Mellitus. ADA recommended reference range Performed By: #### C BC, BMP #### [facility] [address] [id number] [facility] Potassium [Moles/Vol] 4.2 mmol/L Normal 3.5-5.1 [facility] Comment on above: Order Comment: Reason for Exam HAV (hallux abducto valgus), right Performed By: #### C BC, BMP #### [facility] [address] Sodium [Moles/Vol] 136 mmol/L Normal 136-146 [facility] Comment on above: Order Comment: Reason for Exam HAV (hallux abducto valgus), right Performed By: #### C BC, BMP #### [facility] [address] Urea nitrogen [Mass/Vol] 10 mg/dL Normal 9-23 [facility] Comment on above: Order Comment: Reason for Exam HAV (hallux abducto valgus), right Performed By: #### C BC, BMP #### [facility] [address] [place] [address] [place] Basophils Auto (Bld) [#/Vol] Ordered By: Yordan Batres on 03-11-2022 Basophils (Bld) [#/Vol] 0.0 10*3/uL 0.0-0.2 [facility] Basophils/100 WBC Auto (Bld) Ordered By: Yordan Batres on 03-11-2022 Basophils/100 WBC (Bld) 0.4 % . [facility] Complete Blood Count Auto Di ffon 03-11-2022 Basophils (Bld) [#/Vol] 0.0 10*3/uL Normal 0.0-0.2 [facility] Comment on above: Order Comment: Reaso n for Exam HAV (hallux abducto valgus), right Result Comment: PERF ORMED BY: [place] [address] PATHOLOGIST CAN VACUUM TESTER SHRUTHI KIRKPATRICK M.D. Performed By: #### C BC, BMP #### [facility] [address] Basophils/100 WBC (Bld) 0.4 % Normal . [facility] Comment on above: Order Comment: Reaso n for Exam HAV (hallux abducto valgus), right Performed By: #### C BC, BMP #### [facility] [address] [place] [address] [place] Eosinophils (Bld) [#/Vol] 0.1 10*3/uL Normal 0.0-0.45 [facility] Comment on above: Order Comment: Reaso n for Exam HAV (hallux abducto valgus), right Performed By: #### C BC, BMP #### [facility] [address] [place] [address] [place] Eosinophils/100 WBC (Bld) 1.4 % Normal . [facility] Comment on above: Order Comment: Reaso n for Exam HAV (hallux abducto valgus), right Performed By: #### C BC, BMP #### [address] Erythrocyte distribution width (RBC) [Ratio] 13.1 % Normal 11.9-15.3 [facility] Comment on above: Order Comment: Reaso n for Exam HAV (hallux abducto valgus), right Performed By: #### C BC, BMP #### [address] Hematocrit (Bld) [Volume fraction] 39.5 % Normal 34.0-46.4 [facility] Comment on above: Order Comment: Reaso n for Exam HAV (hallux abducto valgus), right Performed By: #### C BC, BMP #### [address] Hemoglobin (Bld) [Mass/Vol] 13.3 g/dL Normal 11.8-15.4 [facility] Comment on above: Order Comment: Reaso n for Exam HAV (hallux abducto valgus), right Performed By: #### C BC, BMP #### [place] [address] [place] Lymphocytes (Bld) [#/Vol] 1.6 10*3/uL Normal 1.00-4.8 [facility] Comment on above: Order Comment: Reaso n for Exam HAV (hallux abducto valgus), right Performed By: #### C BC, BMP #### [place] [address] [place] Lymphocytes/100 WBC (Bld) 22.0 % Normal . [facility] Comment on above: Order Comment: Reaso n for Exam HAV (hallux abducto valgus), right Performed By: #### C BC, BMP #### [facility] [address] MCH (RBC) [Entitic mass] 30.0 pg Normal 24.7-34.3 [facility] Comment on above: Order Comment: Reaso n for Exam HAV (hallux abducto valgus), right Performed By: #### C BC, BMP #### [facility] [address] MCV (RBC) [Entitic vol] 88.8 fL Normal 80-100 [facility] Comment on above: Order Comment: Reaso n for Exam HAV (hallux abducto valgus), right Performed By: #### C BC, BMP #### [address] Mean Corpuscular HGB Conc 33.7 g/dL Normal 32.0-35.0 [facility] Comment on above: Order Comment: Reaso n for Exam HAV (hallux abducto valgus), right Performed By: #### C BC, BMP #### [address] Monocytes (Bld) [#/Vol] 0.5 10*3/uL Normal 0.0-0.8 [facility] Comment on above: Order Comment: Reaso n for Exam HAV (hallux abducto valgus), right Performed By: #### C BC, BMP #### [address] Monocytes/100 WBC (Bld) 7.0 % Normal . [facility] Comment on above: Order Comment: Reaso n for Exam HAV (hallux abducto valgus), right Performed By: #### C BC, BMP #### [address] Neutrophils (Bld) [#/Vol] 5.0 10*3/uL Normal 1.8-7.7 [facility] Comment on above: Order Comment: Reaso n for Exam HAV (hallux abducto valgus), right Performed By: #### C BC, BMP #### [facility] [address] Neutrophils/100 WBC (Bld) 69.2 % Normal . [facility] Comment on above: Order Comment: Reaso n for Exam HAV (hallux abducto valgus), right Performed By: #### C BC, BMP #### [facility] [address] NRBC% 0.2 /100{WBC} Normal 0-0.5 [facility] Comment on above: Order Comment: Reaso n for Exam HAV (hallux abducto valgus), right Performed By: #### C BC, BMP #### [facility] [address] Platelet mean volume (Bld) [Entitic vol] 7.6 fL Normal 6.3-10.7 [facility] Comment on above: Order Comment: Reaso n for Exam HAV (hallux abducto valgus), right Performed By: #### C BC, BMP #### [facility] [address] [place] [address] [place] Platelets (Bld) [#/Vol] 212 10*3/uL Normal 150-450 [facility] Comment on above: Order Comment: Reaso n for Exam HAV (hallux abducto valgus), right Performed By: #### C BC, BMP #### [address] RBC (Bld) [#/Vol] 4.44 10*6/uL Normal 3.60-5.00 [facility] Comment on above: Order Comment: Reaso n for Exam HAV (hallux abducto valgus), right Performed By: #### C BC, BMP #### [place] [id number] [facility] WBC (Bld) [#/Vol] 7.3 10*3/uL Normal 3.8-11.6 [facility] Comment on above: Order Comment: Reaso n for Exam HAV (hallux abducto valgus), right Performed By: #### C BC, BMP #### [facility] [address] [place] [address] [place] Creatinine and Glomerular fi ltration rate.predicted panel (S/P/Bld)Ordered By: Yordan Batres on 03-11-2022 Creatinine [Mass/Vol] 0.80 mg/dL 0.44-1.03 [facility] ECG 12 lead ECGon 03-11-2022 ECG 12 lead ECG [facility] [address] [place] [address] Electrocardiograph Report Signed Patient: Claudette Ross MR#: [id number] 1278 : 1955 Acct:[id number] Age/Sex: 66 / F ADM Date: 03/11/22 Loc: Room: Type: [facility] Attending Dr: Yordan Batres DPElizabeth Ordering Provider: Yordan Batres DPM Date of [...] By: MUS Signed By Laura Chavez MD 180 Normal [facility] Eosinophils Auto (Bld) [#/Vo l]Ordered By: Yordan Batres on 03-11-2022 Eosinophils (Bld) [#/Vol] 0.1 10*3/uL 0.0-0.45 [facility] Eosinophils/100 WBC Auto (Bl d)Ordered By: Yordan Batres on 03-11-2022 Eosinophils/100 WBC (Bld) 1.4 % . [facility] Erythrocyte distribution wid th Auto (RBC) [Ratio]Ordered By: Yordan Batres on 03-11-2022 Erythrocyte distribution width (RBC) [Ratio] 13.1 % 11.9-15.3 [facility] Estimated glomerular filtrat ion rate (GFR) non- AmericanOrdered By: Yordan Batres on 03-11-2022 GFR/1.73 sq M.predicted among non-blacks MDRD (S/P/Bld) [Vol rate/Area] > 60 mL/Min [facility] Hematocrit Auto (Bld) [Volum e fraction]Ordered By: Yordan Batres on 03-11-2022 Hematocrit (Bld) [Volume fraction] 39.5 % 34.0-46.4 [facility] Hemoglobin [Mass/volume] in BloodOrdered By: Yordan Batres on 03-11-2022 Hemoglobin (Bld) [Mass/Vol] 13.3 g/dL 11.8-15.4 [facility] Leukocytes [#/volume] correc slim for nucleated erythrocytes in Blood by Automated counOrdered By: Yordan Batres on 03-11-2022 WBC corrected for nucl RBC Auto (Bld) [#/Vol] 7.3 10*3/uL 3.8-11.6 [facility] Lymphocytes Auto (Bld) [#/Vo l]Ordered By: Yordan Batres on 03-11-2022 Lymphocytes (Bld) [#/Vol] 1.6 10*3/uL 1.00-4.8 [facility] Lymphocytes/100 WBC Auto (Bl d)Ordered By: Yordan Batres on 03-11-2022 Lymphocytes/100 WBC (Bld) 22.0 % . [facility] MCH Auto (RBC) [Entitic mass ]Ordered By: Yordan Batres on 03-11-2022 MCH (RBC) [Entitic mass] 30.0 pg 24.7-34.3 [facility] MCHC Auto (RBC) [Mass/Vol]Or dered By: Yordan Batres on 03-11-2022 MCHC (RBC) [Mass/Vol] 33.7 g/dL 32.0-35.0 [facility] MCV Auto (RBC) [Entitic vol] Ordered By: Yordan Batres on 03-11-2022 MCV (RBC) [Entitic vol] 88.8 fL 80-100 [facility] Monocytes Auto (Bld) [#/Vol] Ordered By: Yordan Batres on 03-11-2022 Monocytes (Bld) [#/Vol] 0.5 10*3/uL 0.0-0.8 [facility] Monocytes/100 WBC Auto (Bld) Ordered By: Yordan Batres on 03-11-2022 Monocytes/100 WBC (Bld) 7.0 % . [facility] Neutrophils Auto (Bld) [#/Vo l]Ordered By: Yordan Batres on 03-11-2022 Neutrophils (Bld) [#/Vol] 5.0 10*3/uL 1.8-7.7 [facility] Neutrophils/100 WBC Auto (Bl d)Ordered By: Yordan Batres on 03-11-2022 Neutrophils/100 WBC (Bld) 69.2 % . [facility] No Panel InformationOrdered By: Yordan Batres on 03-11-2022 Estimated GFR () > 60 mL/Min [facility] Comment on above: GFR estimated refere nce range: According to KDOQI guidelines, <60 ml/min/1.73m2 is sufficient to diagnose a patient with chronic kidney disease. Pharmacy Creatinine Clearance (Chem N/A [facility] Nucleated erythrocytes [Pres ence] in Blood by Automated countOrdered By: Yordan Batres on 03-11-2022 Nucleated RBC Auto Ql (Bld) 0.2 /100{WBC} 0-0.5 [facility] Platelet mean volume Auto (B ld) [Entitic vol]Ordered By: Yordan Batres on 03-11-2022 Platelet mean volume (Bld) [Entitic vol] 7.6 fL 6.3-10.7 [facility] Platelets Auto (Bld) [#/Vol] Ordered By: Yordan Batres on 03-11-2022 Platelets (Bld) [#/Vol] 212 10*3/uL 150-450 [facility] RBC Auto (Bld) [#/Vol]Ordere d By: Yordan Batres on 03-11-2022 RBC (Bld) [#/Vol] 4.44 10*6/uL 3.60-5.00 [facility] Serum or plasma anion gap de terminationOrdered By: Yordan Batres on 03-11-2022 Anion gap [Moles/Vol] 11.2 mmol/L 6.0-15.0 [facility] Serum or plasma calcium yaz urement (mass/volume)Ordered By: Yordan Batres on 03-11-2022 Calcium [Mass/Vol] 9.2 mg/dL 8.2-10.2 [facility] Serum or plasma chloride ady surement (moles/volume)Ordered By: Yordan Batres on 03-11-2022 Chloride [Moles/Vol] 102 mmol/L 95-114 [facility] Serum or plasma glucose yaz urement (mass/volume)Ordered By: Yordan Batres on 03-11-2022 Glucose [Mass/Vol] 99 mg/dL 70-100 [facility] Comment on above: ADA recommended refe rence rangeRandom Glucose Reference Range is dependent on time and content of last meal. Glucose of more than 200 mg/dL in a nonstressed, ambulatory subject supports the diagnosis of Diabetes Mellitus. Serum or plasma potassium me asurement (moles/volume)Ordered By: Yordan Batres on 03-11-2022 Potassium [Moles/Vol] 4.2 mmol/L 3.5-5.1 [facility] Serum or plasma sodium measu rement (moles/volume)Ordered By: Yordan Batres on 03-11-2022 Sodium [Moles/Vol] 136 mmol/L 136-146 [facility] Serum or plasma total carbon dioxide measurement (moles/volume)Ordered By: Yordan Batres on 03-11-2022 CO2 [Moles/Vol] 27.0 mmol/L 22.0-30.0 [facility] Serum or plasma urea nitroge n measurement (mass/volume)Ordered By: Yordan Batres on 03-11-2022 Urea nitrogen [Mass/Vol] 10 mg/dL 11-12 [facility] WBC Auto (Bld) [#/Vol]Ordere d By: Yordan Batres on 03-11-2022 WBC (Bld) [#/Vol] 7.3 10*3/uL 3.8-11.6 [facility] XR chest 2V*on 03-11-2022 XR chest 2V* [facility] [address] [place] [address] XRay Report Signed Patient: Claudette Ross MR#: [id number] 1278 : 1955 Acct:[id number] Age/Sex: 66 / F ADM Date: 03/11/22 Loc: XD Room: Type: [facility] Attending Dr: Yordan Batres DPElizabeth Copies to: [...] Carmela Carlos M.D.03/11/2022 2:29 PM Dictation Location: [place] [address] Transcribed By: LIBORIO 03/11/22 142 Dictated By: Carmela Carlos MD 03/11/221427 Signed By: 03/11/22 142 Normal [facility] LIPID PROFILEon 08-09-2021 CHOL-HDL RATIO NORM SEE BELOW Normal [facility] Comment on above: Result Comment: 3.3 - 4.4 LOW RISK 4.4 - 7.1 AVERAGE RISK 7.1 - 11.0 MODERATE RISK >11.0 HIGH RISK Performed By: #### L IPID, AST, ALT #### [facility] [address] [place] [address] [address] Dedrick Kinsey Cholesterol [Mass/Vol] 195 mg/dL Normal <=200 [facility] Comment on above: Performed By: #### L IPID, AST, ALT #### [facility] [address] [place] [address] [address] Dedrick Kinsey Cholesterol in HDL [Mass/Vol] 47 mg/dL Normal 40-60 [facility] Comment on above: Performed By: #### L IPID, AST, ALT #### [facility] [address] [place] [address] [address] Dedrick Kinsey Cholesterol in LDL [Mass/Vol] 130.0 mg/dL Normal [facility] Comment on above: Performed By: #### L IPID, AST, ALT #### [facility] [address] [place] [address] Dr. Dedrick Kinsey Cholesterol.total/Cho lesterol in HDL [Mass ratio] 4.1 {ratio} Normal [facility] Comment on above: Performed By: #### L IPID, AST, ALT #### [facility] [address] [place] [address] [address] Dedrick Kinsey HDL NORMAL > or = 60 mg/dl - LO W CARDIOVASCULAR RISK <40 mg/dl - HIGH CARDIOVASCULAR RISK Normal [facility] Comment on above: Performed By: #### L IPID, AST, ALT #### [facility] [address] [place] [address] [address] Dedrick Kinsey LDL CALC NORMAL SEE BELOW Normal [facility] Comment on above: Result Comment: <100 mg/dl OPTIMAL 100 - 129 mg/dl NEAR OR ABOVE OPTIMAL 130 - 159 mg/dl BORDERLINE HIGH 160 - 189 mg/dl HIGH >190 mg/dl VERY HIGH Performed By: #### L IPID, AST, ALT #### [facility] [address] [place] [address] [address] Dedrick Kinsey Triglyceride [Mass/Vol] 90 mg/dL Normal <=150 [facility] Comment on above: Performed By: #### L IPID, AST, ALT #### [facility] [address] [place] [address] [address] Dedrick Kinsey VLDL CALC 18.0 mg/dL Normal [facility] Comment on above: Performed By: #### L IPID, AST, ALT #### [facility] [address] [place], [place] [address] Dr. Dedrick Kinsey SGOTon 08-09-2021 AST [Catalytic activity/Vol] 16 U/L Normal 15-37 [facility] Comment on above: Performed By: #### L IPID, AST, ALT #### [facility] [address] [place], [place] [address] Dr. Dedrick Kinsey SGPTon 08-09-2021 ALT [Catalytic activity/Vol] 26 U/L Normal 14-59 [facility] Comment on above: Performed By: #### L IPID, AST, ALT #### [facility] [address] [place] [address] [address] Dedrick Kinsey MG MAMM SCREEN 3D GERARD CADon 06-24-2021 MG MAMM SCREEN 3D GERARD CAD Patient: CLAUDETTE ROSS Exam Date: 06/24/2021 : 1955 Gender:F Ordering : [facility] Admission #: [id number] Family : Order #: [id number] CLICK HERE TO VIEW EXAM RADIOLOGY REPORT [...] pancreatic cancer at age 58. LOCATION: [facility] BREAST COMPOSITION: Scattered areas fibroglandular density. FINDINGS: [...] Tamayo MD on 06/24/2021 at 11:40 Normal [facility] XR DEXA BONE DENSITYon 06-24 XR DEXA BONE DENSITY DEXA Bone Density S tudy CLINICAL: Evaluate bone mineral density. Postmenopausal COMPARISON: None FINDINGS: The bone density study was assessed by dual-energy x-ray absorptiometry with the [employer] scanner. The test results are expressed in [...] by: JACKELIN BATRES Date: 2021-06-24 11:38 Normal [facility] XR Chest 2 Viewson 2 XR [...] Electronically Signed in Other Vendor System) Normal [facility] .eGFRon 01-26-2021 eGFR Non-AA >60 Normal >=60 [facility] Comment on above: Order Comment: Order added [...] years Performed By: #### E GFR #### [address] [address] eGFR AA >60 Normal >=60 [facility] Comment on above: Order Comment: Order added by Discern rule Result Comment: See comment. Performed By: #### E GFR #### [address] [address] AMI Initon 01-26-2021 Initial Myoglobin 35.8 ng/mL Normal 14.3-65.8 [facility] Comment on above: Performed By: #### A MI1 #### [place] [address] Initial Troponin <0.03 Normal 0.00-0.03 [facility] Comment on above: Result Comment: An i ncreased Troponin-I value, in the absence of myocardial ischemia, may indicate other etiologies of cardiac damage. Performed By: #### A MI1 #### [address] [address] CBC w/ Diffon 01-26-2021 Erythrocyte distribution width (RBC) [Ratio] 13.1 % Normal 11.6-14.8 [facility] Comment on above: Performed By: #### C BC #### [address] [address] Hematocrit (Bld) [Volume fraction] 37.4 % Normal 36.0-46.0 [facility] Comment on above: Performed By: #### C BC #### [address] [address] Hemoglobin (Bld) [Mass/Vol] 13.1 g/dL Normal 12.0-16.0 [facility] Comment on above: Performed By: #### C BC #### [place] [address] MCH (RBC) [Entitic mass] 30.2 pg Normal 27.0-35.0 [facility] Comment on above: Performed By: #### C BC #### [place] [address] MCHC 35.0 % Normal 31.0-37.0 [facility] Comment on above: Performed By: #### C BC #### [place] [address] MCV (RBC) [Entitic vol] 86.2 fL Normal 80.0-100.0 [facility] Comment on above: Performed By: #### C BC #### [place] [address] Platelet 196 x10*3/mcL Normal 150-350 [facility] Comment on above: Performed By: #### C BC #### [place] [address] Platelet mean volume (Bld) [Entitic vol] 7.4 fL Low 7.5-11.5 [facility] Comment on above: Performed By: #### C BC #### [place] [address] RBC 4.34 x10*6/mcL Normal 3.80-5.20 [facility] Comment on above: Performed By: #### C BC #### [place] [address] WBC 5.0 x10*3/mcL Normal 4.5-11.0 [facility] Comment on above: Performed By: #### C BC #### [place] [address] CMPon 01-26-2021 Albumin [Mass/Vol] 3.6 g/dL Low 3.7-5.3 [facility] Comment on above: Performed By: #### C OMP #### [place] [address] Albumin/Globulin [Mass ratio] 1.2 {ratio} Normal 1.1-2.2 [facility] Comment on above: Performed By: #### C OMP #### [place] [address] Alk Phos 68 IU/L Normal 34-104 [facility] Comment on above: Performed By: #### C OMP #### [place] [address] ALT [Catalytic activity/Vol] 21 U/L Normal 7-52 [facility] Comment on above: Performed By: #### C OMP #### [place] [address] Anion gap [Moles/Vol] 11 mmol/L Normal 7-17 [facility] Comment on above: Performed By: #### C OMP #### [place] [address] AST [Catalytic activity/Vol] 19 U/L Normal 13-39 [facility] Comment on above: Performed By: #### C OMP #### [place] [address] Bili Total 0.8 mg/dL Normal 0.3-1.0 [facility] Comment on above: Performed By: #### C OMP #### [place] [address] Calcium [Mass/Vol] 8.9 mg/dL Normal 8.6-10.3 [facility] Comment on above: Performed By: #### C OMP #### [place] [address] Chloride 105 IU/L Normal 98-107 [facility] Comment on above: Performed By: #### C OMP #### [place] [address] CO2 [Moles/Vol] 27 mmol/L Normal 21-31 [facility] Comment on above: Performed By: #### C OMP #### [place] [address] Creatinine [Mass/Vol] 0.7 mg/dL Normal 0.6-1.2 [facility] Comment on above: Performed By: #### C OMP #### [place] [address] Glucose [Mass/Vol] 105 mg/dL High 70-99 [facility] Comment on above: Performed By: #### C OMP #### [place] [address] Potassium [Moles/Vol] 3.4 mmol/L Normal 3.4-4.8 [facility] Comment on above: Performed By: #### C OMP #### [place] [address] Protein [Mass/Vol] 6.6 g/dL Normal 6.0-8.3 [facility] Comment on above: Performed By: #### C OMP #### [place] [address] Sodium [Moles/Vol] 140 mmol/L Normal 136-145 [facility] Comment on above: Performed By: #### C OMP #### [place] [address] Urea nitrogen [Mass/Vol] 10 mg/dL Normal 7-25 [facility] Comment on above: Performed By: #### C OMP #### [place] [address] Urea nitrogen/Creatinine [Mass ratio] 14.3 mg/mg Normal 10.0-20.0 [facility] Comment on above: Performed By: #### C OMP #### [place] [address] COV19 Rapidon 01-26-2021 Employed in healthcare? No Normal [facility] Comment on above: Performed By: #### C [id number] #### [place] [address] Group care resident? No Normal [facility] Comment on above: Performed By: #### C [id number] #### [place] [address] In ICU? No Normal [facility] Comment on above: Performed By: #### C [id number] #### [place] [address] status? Not Normal [facility] Comment on above: Performed By: #### C [id number] #### [address] [address] Reason for Rapid Test COVID Exposure Normal [facility] Comment on above: Performed By: #### C [id number] #### [place] [address] SARS-CoV-2 (COVID-19) RNA JAYY+probe Ql (Unsp spec) Positive Critically abnormal Negative [facility] Comment on above: Result Comment: Test completion time: 1554 Called date and time: 01/26/2021 15:54:14 EST Result called to and read back by: LINDA SALAS RN, [facility] (First, Last, Title, Location) The 2019 [...] using the ID NOW COVID-19 test by [employer], which has received Emergency Use Authorization (EUA) [...] following links: Fact Sheet for HealthCare Providers: https://www.fda.gov/media/083269/download Fact Sheet for Patients: https://www.fda.gov/media/324611/download Performed By: #### C [id number] #### [place] [address] SARS-CoV-2 (COVID-19) RNA JAYY+probe Ql (Unsp spec) No Normal [facility] Comment on above: Performed By: #### C [id number] #### [place] [address] Symptomatic as defined by CDC? Yes Normal [facility] Comment on above: Performed By: #### C [id number] #### [place] [address] Diff Autoon 01-26-2021 Baso Absolute 0.0 x10*3/mcL Normal 0.0-0.2 [facility] Comment on above: Performed By: #### . Automated Diff #### [place] [address] Basophils/100 WBC (Bld) 0.4 % Normal 0.0-1.5 [facility] Comment on above: Performed By: #### . Automated Diff #### [place] [address] Eos Absolute 0.1 x10*3/mcL Normal 0.0-0.4 [facility] Comment on above: Performed By: #### . Automated Diff #### [place] [address] Eosinophils/100 WBC (Bld) 1.3 % Normal 0.0-5.4 [facility] Comment on above: Performed By: #### . Automated Diff #### [place] [address] Lymph Absolute 1.0 x10*3/mcL Normal 1.0-4.8 [facility] Comment on above: Performed By: #### . Automated Diff #### [place] [address] Lymphocytes/100 WBC (Bld) 19.2 % Low 27.2-40.8 [facility] Comment on above: Performed By: #### . Automated Diff #### [place] [address] [place] Absolute 0.6 x10*3/mcL Normal 0.1-1.1 [facility] Comment on above: Performed By: #### . Automated Diff #### [place] [address] Monocytes/100 WBC (Bld) 12.4 % High 3.7-11.9 [facility] Comment on above: Performed By: #### . Automated Diff #### [place] [address] Neutro Absolute 3.3 x10*3/mcL Normal 1.8-7.7 [facility] Comment on above: Performed By: #### . Automated Diff #### [place] [address] Neutro Auto 66.7 % Normal 47.2-70.8 [facility] Comment on above: Performed By: #### . Automated Diff #### [place] [address] ED Clinical Summaryon 2020 ED Clinical Summary (Inserted Image. Polina ble to display) [place] [address] ED Clinical Summary Person Information Name: Claudette Ross/[facility] Age: 65 Years : 1955 Sex: Female PCP: Nidhi Michaels MD Marital Status: Single Phone: Race: White Ethnicity: Not or Language: Bangladeshi Visit Reason: Chest pain; Chest pain - Cardiac Acuity: 3 Enc Type: Emergency Med Service: Emergency Medicine Arrival: 01/26/2021 13:48:22 Discharge: 01/26/2021 17:06:00 LOS: 000 03:18 Checkin: 01/26/2021 13:48:22 Checkout: 01/26/2021 17:06:00 Dispo Type: Home or Self Care Address: [address] [place] [address] Provider Notes: Diagnosis: 1:Pneumonia due to COVID-19 [...] range between ( 27.2 and 40.8 ) [place] Auto: 12.4 % -- Normal range between [...] range between ( 36.0 and 46.0 ) [place] Absolute: 0.6 x10 MCH: 30.2 pg -- [...] This Visit Final Med List: New Medications [id number], [address], [place] [id number], [phone] hydrocodone-acetaminophen ([place] 5 mg-325 mg oral tablet) 1 Tabs [...] mouth) 2 times a day. Last Dose: [facility] #[id number], [address], [place] [id number], [phone] hydrocodone-acetaminophen ([place] 5 mg-325 mg oral tablet) 1 Tabs [...] Unassigned Chandni (more content not included)... Normal [facility] ED Note-Physicianon 01-27-20 ED Note-Physician Chief Complaint [...] tabs, 0 Refill(s), 01/29/21 17:00:00 EST, Pharmacy: [facility]/pharmacy #[id number] 2. Acute chest wall pain Ordered: hydrocodone-acetaminophen, 1 tabs, Oral, q4hr, PRN, X 3 days, # 18 tabs, 0 Refill(s), 01/29/21 17:00:00 EST, [id number] Orders: predniSONE, See Instructions, 6-5-4-3-2-1, # 21 tabs, 0 Refill(s), [id number] [facility] Professional Level 4 Discharge Patient Refresh vitals and sections below: Problem List/Past Medical History Ongoing Depression Hypertension Hypothyroid Historical No qualifying data Procedure/Surgical History Elbow Foot Hysterectomy Neck Medications Inpatient No active inpatient medications Home [place] 5 mg-325 mg oral tablet, 1 tabs, [...] 66.7 Lymph Auto 01/26/21 14:14 19.2 Low [place] Auto 01/26/21 14:14 12.4 High Eos Auto 01/26/21 14:14 1.3 Basophil Auto 01/26/21 14:14 0.4 Neutro Absolute 01/26/21 14:14 3.3 Lymph Absolute 01/26/21 14:14 1.0 [place] Absolute 01/26/21 14:14 0.6 Eos Absolute 01/26/21 14:14 0.1 Baso Absolute 01/26/21 14:14 0.0 Routine Chemistry LATEST RESULTS Sodium Lvl 01/26/21 14:14 140 Potassium Lvl 01/26/21 14:14 3.4 Chloride 01/26/21 14:14 105 CO2 01/26/21 14:14 27 Anion Gap 01/26/21 14:14 11 Glucose Lvl 01/26/21 14:14 105 High BUN 01/26/21 14: (more content not included)... Normal [facility] TSH reflex Free T4on 021 TSH reflex Free T4 1.935 mcIU/mL Normal 0.490-4. 67 0 [facility] Comment on above: Performed By: #### L 404.9100, L404.7150, L400.0065 #### Main Laboratory ([facility]) [address] [place] [address] Arnulfo Little MD Vitamin B12on 10-27-2020 Cobalamin (Vitamin B12) [Mass/Vol] 135 pg/mL Low 180-914 [facility] Comment on above: Result Comment: B12 level of 145 - 180 is considered Indeterminate and level of <145 is considered Deficient. Performed By: #### L 404.9100, L404.7150, L400.0065 #### Main Laboratory ([facility]) [address] [place] [address] Arnulfo Little MD Vitamin D,25-hydroxy (Total) on 10-27-2020 25(OH) Vitamin D,Total 28.50 ng/mL Low 30.00-100. 00 [facility] Comment on above: Result Comment: Opti mal values are established by the Clinical Guidelines Subcommittee of the Endocrine Society Task Force. (Journal of Clinical Endocrinology & Metabolism,2011;96) Status Vitamin D Concentration Range ------- Deficient <20 Insufficient 20 - 30 Sufficient 30 - 100 Performed By: #### L 404.9100, L404.7150, L400.0065 #### Main Laboratory ([facility]) [address] [place] [address] Arnulfo Little MD Vitamin D,1,25-Dihydroxyon 0 10-21-2020 Vitamin D,1,25-Dihydroxy 74 pg/mL Normal 18-78 [facility] Comment on above: Result Comment: ---- ADDITIONAL INFORMATION This test was developed and its performance characteristics determined by [facility] in a manner consistent with CLIA requirements. This test has not been cleared or approved by the U.S. Food and Drug Administration. Test Performed by: [facility] - [facility] [address], [place] [address] Sack Maker: Rakan Kim M.D. Ph.D.; CLIA# [id number] Performed By: #### L 922.1720 #### [facility] [address] [place] [address] CBC with Differentialon 09-21 Abs Baso Count 0 /cmm Normal 0-200 [facility] Comment on above: Performed By: #### L 100.0000 #### Main Laboratory ([facility]) [address] [place] [address] Arnulfo Little MD Abs Eos Count 100 /cmm Normal 0-500 [facility] Comment on above: Performed By: #### L 100.0000 #### Main Laboratory ([facility]) [address] [place] [address] Arnulfo Little MD Abs Lymph Count 1500 /cmm Normal 9738-2756 [facility] Comment on above: Performed By: #### L 100.0000 #### Main Laboratory ([facility]) [address] [place] [id number] Arnulfo Little MD Abs [place] Count 400 /cmm Normal 0-800 [facility] Comment on above: Performed By: #### L 100.0000 #### Main Laboratory ([facility]) [address] [place] [address] Arnulfo Little MD Abs Neut Count 3900 /cmm Normal 3290-7237 [facility] Comment on above: Performed By: #### L 100.0000 #### Main Laboratory ([facility]) [address] [place] [address] Arnulfo Little MD Basophils/100 WBC (Bld) 0.5 % Normal 0-2 [facility] Comment on above: Performed By: #### L 100.0000 #### Main Laboratory ([facility]) [address] [place], [place] [address] Arnulfo Little MD EOS-Auto Diff 1.5 % Normal 0-6 [facility] Comment on above: Performed By: #### L 100.0000 #### Main Laboratory ([facility]) [address] [place] [address] Arnulfo Little MD Erythrocyte distribution width (RBC) [Ratio] 13.7 % Normal 12.0-16.0 [facility] Comment on above: Performed By: #### L 100.0000 #### Main Laboratory ([facility]) [address] [place] [address] Arnulfo Little MD Hematocrit (Bld) [Volume fraction] 39.3 % Normal 35.0-44.0 [facility] Comment on above: Performed By: #### L 100.0000 #### Main Laboratory ([facility]) [address] [place] [address] Arnulfo Little MD Hemoglobin (Bld) [Mass/Vol] 13.7 g/dL Normal 12.0-15.0 [facility] Comment on above: Performed By: #### L 100.0000 #### Main Laboratory ([facility]) [address] [place] [address] Arnulfo Little MD Lymphocytes/100 WBC (Bld) 25.3 % Normal 15-45 [facility] Comment on above: Performed By: #### L 100.0000 #### Main Laboratory ([facility]) [address] [place] [address] Arnulfo Little MD MCH (RBC) [Entitic mass] 30.9 pg Normal 27.5-33.0 [facility] Comment on above: Performed By: #### L 100.0000 #### Main Laboratory ([facility]) [address] [place] [address] Arnulfo Little MD MCHC (RBC) [Mass/Vol] 34.9 g/dL Normal 33.0-36.0 [facility] Comment on above: Performed By: #### L 100.0000 #### Main Laboratory ([facility]) [address] [place] [address] Arnulfo Little MD MCV 88.6 CU JAMES Normal 80-97 [facility] Comment on above: Performed By: #### L 100.0000 #### Main Laboratory ([facility]) [address] [place] [place] [address] Arnulfo Little MD [place]- Auto Diff 6.8 % Normal 2-10 [facility] Comment on above: Performed By: #### L 100.0000 #### Main Laboratory ([facility]) [address] [place] [address] Arnulfo Little MD Neut-Auto Diff 65.9 % Normal 40-70 [facility] Comment on above: Performed By: #### L 100.0000 #### Main Laboratory ([facility]) [address] [place] [address] Arnulfo Little MD NRBC-Auto 0.1 /100 WBC Normal <1 [facility] Comment on above: Performed By: #### L 100.0000 #### Main Laboratory ([facility]) [address] [place] [address] Arnulfo Little MD Platelet Count 201 th/cmm Normal 150-400 [facility] Comment on above: Performed By: #### L 100.0000 #### Main Laboratory ([facility]) [address] [place] [facility] Arnulfo Little MD RBC 4.44 mil/cmm Normal 4.00-5.10 [facility] Comment on above: Performed By: #### L 100.0000 #### Main Laboratory ([facility]) [address] [place] [facility] Arnulfo Little MD WBC 5.9 th/cmm Normal 4.4-10.5 [facility] Comment on above: Performed By: #### L 100.0000 #### Main Laboratory ([facility]) [address] [place], [place] [address] Arnulfo Little MD Comprehensive Metabolic Pane sandeep 10-16-2020 Albumin [Mass/Vol] 3.9 g/dL Normal 3.5-5.0 [facility] Comment on above: Order Comment: Is Pa tient Fasting? Yes Performed By: #### L 400.0076, L400.0400 #### Main Laboratory ([facility]) [address] [place] [facility] Arnulfo Little MD Albumin/Globulin [Mass ratio] 1.3 {ratio} Low 1.5-2.5 [facility] Comment on above: Order Comment: Is Pa tient Fasting? Yes Performed By: #### L 400.0076, L400.0400 #### Main Laboratory ([facility]) [address] [place] [address] Arnulfo Little MD Alk Phos 83 IU/L Normal 39-118 [facility] Comment on above: Order Comment: Is Pa tient Fasting? Yes Performed By: #### L 400.0076, L400.0400 #### Main Laboratory ([facility]) [address] [place] [id number] Arnulfo Little MD ALT [Catalytic activity/Vol] 16 U/L Normal 10-40 [facility] Comment on above: Order Comment: Is Pa tient Fasting? Yes Performed By: #### L 400.0076, L400.0400 #### Main Laboratory ([facility]) [address] [place] [address] Arnulfo Little MD Anion gap [Moles/Vol] 8 mmol/L Normal 4-12 [facility] Comment on above: Order Comment: Is Pa tient Fasting? Yes Performed By: #### L 400.0076, L400.0400 #### Main Laboratory ([facility]) [address] [place] [address] Arnulfo Little MD AST [Catalytic activity/Vol] 15 U/L Normal 15-41 [facility] Comment on above: Order Comment: Is Pa tient Fasting? Yes Performed By: #### L 400.0076, L400.0400 #### Main Laboratory ([facility]) [address] [place], [facility] Arnulfo Little MD Bili,Total 0.6 mg/dL Normal 0.2-1.0 [facility] Comment on above: Order Comment: Is Pa tient Fasting? Yes Performed By: #### L 400.0076, L400.0400 #### Main Laboratory ([facility]) [address] [place] [address] Arnulfo Little MD Calcium [Mass/Vol] 9.20 mg/dL Normal 8.8-10.5 [facility] Comment on above: Order Comment: Is Pa tient Fasting? Yes Performed By: #### L 400.0076, L400.0400 #### Main Laboratory ([facility]) [address] [place] [address] Arnulfo Little MD Chloride [Moles/Vol] 105 mmol/L Normal 101-111 [facility] Comment on above: Order Comment: Is Pa tient Fasting? Yes Performed By: #### L 400.0076, L400.0400 #### Main Laboratory ([facility]) [address] [place] [address] Arnulfo Little MD CO2 [Moles/Vol] 29 mmol/L Normal 21-32 [facility] Comment on above: Order Comment: Is Pa tient Fasting? Yes Performed By: #### L 400.0076, L400.0400 #### Main Laboratory ([facility]) [address] [place] [address] Arnulfo Little MD Creatinine [Mass/Vol] 0.85 mg/dL Normal 0.60-1.30 [facility] Comment on above: Order Comment: Is Pa tient Fasting? Yes Performed By: #### L 400.0076, L400.0400 #### Main Laboratory ([facility]) [address] [place] [address] Arnulfo Little MD GFR Calculation > 60 Normal [facility] Comment on above: Order Comment: Is Pa tient Fasting? Yes Result Comment: Gyro Mechanic marky Kidney Disease stages by NKDF Stage eGFR I >90 II 60-89 III 30-59 IV 15-29 V <15 or dialysis AGE(years) AVERAGE GFR 60-69 85 ml/min/1.73 square meters Note:This result is normalized to 1.73 square meter body surface area. Height and weight are not factored. Performed By: #### L 400.0076, L400.0400 #### Main Laboratory ([facility]) [address] [place] [address] Arnulfo Little MD Glucose [Mass/Vol] 100 mg/dL Normal 70-110 [facility] Comment on above: Order Comment: Is Pa tient Fasting? Yes Result Comment: *Thi s reference range applies to fasting specimens only. Performed By: #### L 400.0076, L400.0400 #### Main Laboratory ([facility]) [address] [facility] [place] [address] Arnulfo Little MD Potassium [Moles/Vol] 3.7 mmol/L Normal 3.6-5.0 [facility] Comment on above: Order Comment: Is Pa tient Fasting? Yes Performed By: #### L 400.0076, L400.0400 #### Main Laboratory ([facility]) [address] [place] [address] Arnulfo Little MD Protein [Mass/Vol] 6.8 g/dL Normal 6.2-8.0 [facility] Comment on above: Order Comment: Is Pa tient Fasting? Yes Performed By: #### L 400.0076, L400.0400 #### Main Laboratory ([facility]) [address] [place] [address] Arnulfo Little MD Sodium [Moles/Vol] 142 mmol/L Normal 135-145 [facility] Comment on above: Order Comment: Is Pa tient Fasting? Yes Performed By: #### L 400.0076, L400.0400 #### Main Laboratory ([facility]) [address] [place] [address] Arnulfo Little MD Urea nitrogen [Mass/Vol] 10 mg/dL Normal 7-20 [facility] Comment on above: Order Comment: Is Pa tient Fasting? Yes Performed By: #### L 400.0076, L400.0400 #### Main Laboratory ([facility]) [address] [place] [address] Arnulfo Little MD Lipid Panelon 10-16-2020 Chol/HDL Risk 4.0 Normal 4.0-4.4 [facility] Comment on above: Order Comment: Is Pa tient Fasting? Yes Performed By: #### L 400.0076, L400.0400 #### Main Laboratory ([facility]) [address] [place] [address] Arnulfo Little MD Cholesterol [Mass/Vol] 160 mg/dL Normal <200 [facility] Comment on above: Order Comment: Is Pa tient Fasting? Yes Performed By: #### L 400.0076, L400.0400 #### Main Laboratory ([facility]) [address] [place] [address] Arnulfo Little MD Cholesterol in HDL [Mass/Vol] 40 mg/dL Normal [facility] Comment on above: Order Comment: Is Pa tient Fasting? Yes Result Comment: The National Cholesterol Education Program (NCEP) has set the following guidelines (reference values) for cholesterol, HDL: Low: <40 mg/dL Normal: 40-60 mg/dL High: >60 mg/dL Performed By: #### L 400.0076, L400.0400 #### Main Laboratory ([facility]) [address] [place] [address] Arnulfo Little MD Cholesterol in LDL [Mass/Vol] 104 mg/dL High [facility] Comment on above: Order Comment: Is Pa tient Fasting? Yes Result Comment: The National Cholesterol Education Program (NCEP) has set the following guidelines (reference values) for cholesterol, LDL: Desirable (optimal): <100 mg/dL Low Risk (near optimal): 100-129 mg/dL Borderline high: 130-159 mg/dL High: 160-189 mg/dL Very high: >=190 mg/dL Performed By: #### L 400.0076, L400.0400 #### Main Laboratory ([facility]) [address] [place] [address] Arnulfo Little MD Cholesterol in VLDL [Mass/Vol] 20 mg/dL Normal <39 [facility] Comment on above: Order Comment: Is Pa tient Fasting? Yes Performed By: #### L 400.0076, L400.0400 #### Main Laboratory ([facility]) [address] [place] [address] Arnulfo Little MD dLDL/HDL RISK 2.6 Normal <3.1 [facility] Comment on above: Order Comment: Is Pa tient Fasting? Yes Performed By: #### L 400.0076, L400.0400 #### Main Laboratory ([facility]) [address] [place] [address] Arnulfo Little MD Triglyceride [Mass/Vol] 102 mg/dL Normal <150 [facility] Comment on above: Order Comment: Is Pa tient Fasting? Yes Performed By: #### L 400.0076, L400.0400 #### Main Laboratory ([facility]) [address] [place] [address] Arnulfo Little MD BASIC METABOLIC PANELon 02-20 Calcium [Mass/Vol] 8.8 mg/dL Normal 8.6-10.3 [facility] Comment on above: Order Comment: No: D o not add to previous draw Performed By: #### 3 5200, 89418, 92382, 75099 #### [facility] [address] [place] [address], [place] Chloride [Moles/Vol] 106 mmol/L Normal 98-107 [facility] Comment on above: Order Comment: No: D o not add to previous draw Performed By: #### 3 5200, 50409, 54275, 42448 #### [facility] [address] [place] [address], [place] CO2 [Moles/Vol] 30 mmol/L Normal 21-31 [facility] Comment on above: Order Comment: No: D o not add to previous draw Performed By: #### 3 5200, 20259, 75537, 24191 #### [facility] [address] [place] [address], [place] Creatinine [Mass/Vol] 0.80 mg/dL Normal 0.60-1.20 [facility] Comment on above: Order Comment: No: D o not add to previous draw Performed By: #### 3 5200, 52812, 54563, 70484 #### [facility] [address] [place] [address], [place] GFR/1.73 sq M predicted among blacks MDRD (S/P/Bld) [Vol rate/Area] mL/min/{1.73_m2} Normal >60 [facility] Comment on above: Order Comment: No: D o not add to previous draw Performed By: #### 3 5200, 03087, 36550, 39653 #### [facility] [address] [place] [address], [place] GFR/1.73 sq M predicted among non-blacks MDRD (S/P/Bld) [Vol rate/Area] mL/min/{1.73_m2} Normal >60 [facility] Comment on above: Order Comment: No: D o not add to previous draw Performed By: #### 3 5200, 50163, 72301, 15970 #### [facility] [address] [place] [address], [place] Glucose [Mass/Vol] 102 mg/dL High 70-100 [facility] Comment on above: Order Comment: No: D o not add to previous draw Performed By: #### 3 5200, 66052, 83465, 27669 #### [facility] [address] [place] [address], [place] Potassium [Moles/Vol] 3.9 mmol/L Normal 3.5-5.1 [facility] Comment on above: Order Comment: No: D o not add to previous draw Performed By: #### 3 5200, 50215, 28466, 92759 #### [facility] [address] [place] [address], [place] Sodium [Moles/Vol] 140 mmol/L Normal 136-145 [facility] Comment on above: Order Comment: No: D o not add to previous draw Performed By: #### 3 5200, 12537, 92427, 07859 #### [facility] [address] [place] [address], [place] Urea nitrogen [Mass/Vol] 12 mg/dL Normal 7-25 [facility] Comment on above: Order Comment: No: D o not add to previous draw Performed By: #### 3 5200, 00803, 92638, 61946 #### [facility] [address] [place] [address], [place] CBC COMPLETE BLOOD COUNTon 0 1-15-2020 Erythrocyte distribution width (RBC) [Ratio] 13.2 % Normal 11.5-15.0 [facility] Comment on above: Order Comment: No: D o not add to previous draw Performed By: #### 5 0608 #### [facility] [address] [place] [address], [facility] Hematocrit (Bld) [Volume fraction] 38.1 % Normal 36.0-45.0 [facility] Comment on above: Order Comment: No: D o not add to previous draw Performed By: #### 5 0608 #### [facility] [address] [place] [address], [facility] Hemoglobin (Bld) [Mass/Vol] 12.2 g/dL Normal 12.0-15.0 [facility] Comment on above: Order Comment: No: D o not add to previous draw Performed By: #### 5 0608 #### [facility] [address] [place] [address], [facility] MCH (RBC) [Entitic mass] 29.5 pg Normal 27.0-33.0 [facility] Comment on above: Order Comment: No: D o not add to previous draw Performed By: #### 5 0608 #### [facility] [address] [place] [address], [facility] MCHC (RBC) [Mass/Vol] 32.0 g/dL Normal 32.0-35.0 [facility] Comment on above: Order Comment: No: D o not add to previous draw Performed By: #### 5 0608 #### [facility] [address] [place] [id number], [facility] MCV (RBC) [Entitic vol] 92.0 fL Normal 82.0-98.0 [facility] Comment on above: Order Comment: No: D o not add to previous draw Performed By: #### 5 0608 #### [facility] [address] [place] [address], [facility] Nucleated RBC/100 WBC (Bld) [Ratio] 0 % Normal 0-0 [facility] Comment on above: Order Comment: No: D o not add to previous draw Performed By: #### 5 0608 #### [facility] [address] [place] [address], [facility] PLAT CNT 159 10*3/uL Normal 150-400 [facility] Comment on above: Order Comment: No: D o not add to previous draw Performed By: #### 5 0608 #### [facility] [address] [facility] [place] [address], [facility] RBC (Bld) [#/Vol] 4.14 10*6/uL Normal 3.80-5.00 [facility] Comment on above: Order Comment: No: D o not add to previous draw Performed By: #### 5 0608 #### [facility] [address] [address], [facility] WBC (Bld) [#/Vol] 6.23 10*3/uL Normal 4.00-10.60 [facility] Comment on above: Order Comment: No: D o not add to previous draw Performed By: #### 5 0608 #### [facility] [address] [facility] [facility] [place] [address], [facility] LIPID PROFILEon 03-06-2019 Cholesterol [Mass/Vol] 151 mg/dL Normal 120-200 [facility] Comment on above: Order Comment: No: D o not add to previous draw Result Comment: CHOL ESTEROL REFERENCE RANGE: 20 YEARS AND OLDER CARDIOVASCULAR RISK Less than 200 mg/dl Low Risk 200 to 239 mg/dl Borderline Risk 240 mg/dl and greater High Risk Performed By: #### 4 6413, 76931 #### [facility] [address] [place] [address], [facility] Cholesterol in HDL [Mass/Vol] 39 mg/dL Normal 23-92 [facility] Comment on above: Order Comment: No: D o not add to previous draw Result Comment: Slig ht variation in normal range could be due to gender and/or age. HDL CHOLESTEROL REFERENCE RANGE: 20 years and older Cardiovascular Risk > or =60 mg/dL Desirable 40 TO 59 mg/dL Low Risk <40 mg/dL High Risk Performed By: #### 4 4613, 65321 #### [facility] [address] [place] [address], [place] Cholesterol in LDL [Mass/Vol] 90 mg/dL Normal 0-130 [facility] Comment on above: Order Comment: No: D o not add to previous draw Result Comment: LDL IS A CALCULATION LDL IS ONLY VALID IF THE TRIG IS LESS THAN 400. Performed By: #### 4 9713, 71689 #### [facility] [address] [place] [id number], [facility] Cholesterol.total/Cho lesterol in HDL [Mass ratio] 3.9 {ratio} Normal 0.0-4.5 [facility] Comment on above: Order Comment: No: D o not add to previous draw Performed By: #### 4 3613, 53167 #### [facility] [address] [place] [address], [facility] NON-HDL CHOLESTEROL 112 mg/dL Normal [facility] Comment on above: Order Comment: No: D o not add to previous draw Performed By: #### 4 6413, 37855 #### [facility] [address] [place] [address], [place] Triglyceride [Mass/Vol] 110 mg/dL Normal 40-149 [facility] Comment on above: Order Comment: No: D o not add to previous draw Result Comment: TRIG LYCERIDE REFERENCE RANGE: 20 YEARS AND OLDER CARDIOVASCULAR RISK LESS THAN 150 mg/dl LOW RISK 150 TO 199 mg/dl BORDERLINE RISK 200 mg/dl AND GREATER HIGH RISK Performed By: #### 4 2813, 56802 #### [facility] [address] [place] [address], [place] VLDL CHOL 22 mg/dL Normal 0-40 [facility] Comment on above: Order Comment: No: D o not add to previous draw Performed By: #### 4 6413, 66436 #### [facility] [address] [place] [address], [place] BASIC METABOLIC PANELon 02-20 Calcium [Mass/Vol] 8.8 mg/dL Normal 8.6-10.3 [facility] Comment on above: Order Comment: No: D o not add to previous draw Performed By: #### 3 5200, 64025, 18670, 64047 #### [facility] [address] [place] [address], [place] Chloride [Moles/Vol] 107 mmol/L Normal 98-107 [facility] Comment on above: Order Comment: No: D o not add to previous draw Performed By: #### 3 5200, 84786, 37756, 90339 #### [facility] [address] [place] [address], [place] CO2 [Moles/Vol] 26 mmol/L Normal 21-31 [facility] Comment on above: Order Comment: No: D o not add to previous draw Performed By: #### 3 5200, 97397, 20173, 58238 #### [facility] [address] [place] [address], [place] Creatinine [Mass/Vol] 0.87 mg/dL Normal 0.60-1.20 [facility] Comment on above: Order Comment: No: D o not add to previous draw Performed By: #### 3 5200, 01755, 69108, 82913 #### [facility] [address] [place] [address], [place] GFR/1.73 sq M predicted among blacks MDRD (S/P/Bld) [Vol rate/Area] mL/min/{1.73_m2} Normal >60 [facility] Comment on above: Order Comment: No: D o not add to previous draw Performed By: #### 3 5200, 49753, 09376, 41893 #### [facility] [address] [place] [address], [facility] GFR/1.73 sq M predicted among non-blacks MDRD (S/P/Bld) [Vol rate/Area] mL/min/{1.73_m2} Normal >60 [facility] Comment on above: Order Comment: No: D o not add to previous draw Performed By: #### 3 5200, 66658, 47905, 47608 #### [facility] [address] [place] [address], [facility] Glucose [Mass/Vol] 118 mg/dL High 70-100 [facility] Comment on above: Order Comment: No: D o not add to previous draw Performed By: #### 3 5200, 37832, 38643, 07615 #### [facility] [address] [place] [address], [place] Potassium [Moles/Vol] 4.0 mmol/L Normal 3.5-5.1 [facility] Comment on above: Order Comment: No: D o not add to previous draw Performed By: #### 3 5200, 53465, 07598, 87255 #### [facility] [address] [place] [address], [facility] Sodium [Moles/Vol] 140 mmol/L Normal 136-145 [facility] Comment on above: Order Comment: No: D o not add to previous draw Performed By: #### 3 5200, 91195, 78327, 03759 #### [facility] [address] [place] [address], [place] Urea nitrogen [Mass/Vol] 13 mg/dL Normal 7-25 [facility] Comment on above: Order Comment: No: D o not add to previous draw Performed By: #### 3 5200, 91520, 39222, 07516 #### [facility] [address] [place] [address], [place] CBC COMPLETE BLOOD COUNTon 0 1-14 Erythrocyte distribution width (RBC) [Ratio] 13.1 % Normal 11.5-15.0 [facility] Comment on above: Order Comment: No: D o not add to previous draw Performed By: #### 5 0608 #### [facility] [address] [place] [address], [facility] Hematocrit (Bld) [Volume fraction] 36.8 % Normal 36.0-45.0 [facility] Comment on above: Order Comment: No: D o not add to previous draw Performed By: #### 5 0608 #### [facility] [address] [place] [address], [facility] Hemoglobin (Bld) [Mass/Vol] 12.1 g/dL Normal 12.0-15.0 [facility] Comment on above: Order Comment: No: D o not add to previous draw Performed By: #### 5 0608 #### [facility] [address] [address], [facility] MCH (RBC) [Entitic mass] 29.3 pg Normal 27.0-33.0 [facility] Comment on above: Order Comment: No: D o not add to previous draw Performed By: #### 5 0608 #### [facility] [address] [address], [facility] MCHC (RBC) [Mass/Vol] 32.9 g/dL Normal 32.0-35.0 [facility] Comment on above: Order Comment: No: D o not add to previous draw Performed By: #### 5 0608 #### [facility] [address] [facility] [place] [id number], [facility] MCV (RBC) [Entitic vol] 89.1 fL Normal 82.0-98.0 [facility] Comment on above: Order Comment: No: D o not add to previous draw Performed By: #### 5 0608 #### [facility] [address] [place] [address], [facility] Nucleated RBC/100 WBC (Bld) [Ratio] 0 % Normal 0-0 [facility] Comment on above: Order Comment: No: D o not add to previous draw Performed By: #### 5 0608 #### [facility] [address] [place] [address], [facility] PLAT CNT 164 10*3/uL Normal 150-400 [facility] Comment on above: Order Comment: No: D o not add to previous draw Performed By: #### 5 0608 #### [facility] [address] [place] [address], [facility] RBC (Bld) [#/Vol] 4.13 10*6/uL Normal 3.80-5.00 [facility] Comment on above: Order Comment: No: D o not add to previous draw Performed By: #### 5 0608 #### [facility] [address] [place] [address], [facility] WBC (Bld) [#/Vol] 6.30 10*3/uL Normal 4.00-10.60 [facility] Comment on above: Order Comment: No: D o not add to previous draw Performed By: #### 5 0608 #### [facility] [address] History and Physicalon 03-05 History and Physical MR#: [id number] [facility] Pt. Name: Claudette Ross Admitted: 03/05/2019 Date of : 1955 Attending Physician: Nitin Gonzalez MD Room #: 3AB [id number] Discharge Date: HISTORY AND PHYSICAL CHIEF COMPLAINT: Chest pain. HISTORY OF PRESENT ILLNESS: This is a 63-year-old female with past medical history significant for hypertension, dyslipidemia, hypothyroidism. 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 She reports that she was sitting on her chair when the episode started. It was 10/10 in intensity, associated with shortness of breath for which she called the EMS who gave her nitroglycerin sublingual, which helped a bit and then she was transferred to [facility]. In [facility], an EKG was done, which was showing no significant changes. Troponin was done, which was negative. The patient was started on nitroglycerin drip. She also had a CT angiogram of the chest, which was negative for pulmonary embolism, but it was positive for a pulmonary nodule and the patient was transferred to [facility] for further evaluation. The patient reports that she still does have 6/10 substernal chest pain but with no shortness of breath at this time. She still feels the pain in her neck. 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 She reports that she is compliant with her medication, but she does not recall exactly what medication she takes. PAST MEDICAL HISTORY: Include hypertension, dyslipidemia, hypothyroidism. SOCIAL HISTORY: She reports no history of tobacco use. No use of alcohol. MEDICATIONS: At home from the list from [facility] include Singulair 10 mg per oral daily, [...] Alert and oriented x3. LABORATORY DATA: From [facility] showing hemoglobin of 13, platelets 182, white [...] Gonzalez MD Date Trans: 03/05/2019 10:44 A/drew DN_JN:[id number] Normal [facility] MAGNESIUM BLOODon 03-05-2019 Magnesium [Mass/Vol] 2.2 mg/dL Normal 1.9-2.7 [facility] Comment on above: Order Comment: No: D o not add to previous draw Performed By: #### 3 6440, 32738, 54341, 54247 #### [facility] [address] TROPONIN-Ion 03-05-2019 Troponin I.cardiac [Mass/Vol] 0.01 ng/mL Normal 0.00-0.04 [facility] Comment on above: Order Comment: No: D o not add to previous draw Result Comment: REFE RENCE RANGES: 0.00 - 0.04 ng/ml NORMAL 0.05 - 0.50 ng/ml INDETERMINATE > 0.50 ng/ml CONSISTENT WITH AN M.I. Performed By: #### 3 5200 #### [facility] [address] Troponin I.cardiac [Mass/Vol] 0.00 ng/mL Normal 0.00-0.04 [facility] Comment on above: Order Comment: No: D o not add to previous draw Result Comment: REFE RENCE RANGES: 0.00 - 0.14 ng/ml NEGATIVE 0.15 - 0.25 ng/ml INDETERMINATE > 0.25 ng/ml INDICATIVE OF AN M.I. Performed By: #### 3 5200 #### [facility] [address] Troponin I.cardiac [Mass/Vol] 0.00 ng/mL Normal 0.00-0.04 [facility] Comment on above: Order Comment: No: D o not add to previous draw Result Comment: REFE RENCE RANGES: 0.00 - 0.14 ng/ml NEGATIVE 0.15 - 0.25 ng/ml INDETERMINATE > 0.25 ng/ml INDICATIVE OF AN M.I. Performed By: #### 3 5200, 44128, 39704, 73170 #### [facility] [address] TSH3 WITH REFLEXon 0 TSH 3RD GENERATION 2.38 uIU/mL Normal 0.34-5.60 [facility] Comment on above: Performed By: #### 3 5200, 72731, 15265, 30921 #### [facility] [address] Intraoperative Noteon 2017 Intraoperative Note [id number]#1.00OTGTIFF [facility] Intraoperative Note [id number]#1.00OTGTIFF [facility] History and Physicalon 02-22 History and Physical [id number]#[address] Provider Orderson 02-22-2017 Provider Orders [id number]#[address] [place] [address] Coding Summaryon 01-18-2017 Coding Summary CODING DATE: 017 [facility] STATUS: Home PAYOR: Medicare APC DESCRIPTION 5431 Level 1 Nerve Procedures ADMIT DX: REASON FOR VISIT DX: G56.02 Carpal tunnel syndrome, left upper limb FINAL DX: PRINCIPAL: G56.02 Carpal tunnel syndrome, left upper limb SECONDARY: E78.5 Hyperlipidemia, unspecified I10 Essential (primary) hypertension E03.9 Hypothyroidism, unspecified Z72.0 Tobacco use PYMT PROC APC STAT DESCRIPTION DOCTOR NAME DATE 97041 5431 J1 Neuroplasty and/or Conrado Mccoy And 01/16/2017 [...] Rossana Swan Date Saved: 01/18/2017 07:38 am [facility] Consent Formson 01-17-2017 Consent Forms [id number]#[address] Anesthesia Noteon 01-16-2017 [facility] Patient: Kolby ROSS : 61 years Sex: FEMALE : [birth year]Associated Diagnoses: NoneAuthor: Rakan Hernandez MDPostoperative InformationAnesthetic utilized: Monitored anesthesia care.AssessmentAnesthetic outcomeNo anesthetic complications noted.PlanTransfer/ Discharge: Patient can be discharged from PACU when criteria met.Condition good.[Electronically Signed on: 01/16/2017 14:17 EST] Rakan Hernandez MD[Verified on: 01/16/2017 14:17 EST] Rakan Hernandez MD [facility] Anesthesia Note Patient: Kolby ROSS : [...] 50 mg = 1 tab(s), PRN, PO, [id number] list (past medical history):All ProblemsHypothyroidism / SNOMED CT 38189372 / ConfirmedCanceled: No Chronic Problems / Cerner NKPHistoriesFamily History:No family history items have been selected or recorded.Procedure history:Carpal tunnel decompression (5462519001) on 12/12/2016 at 61 Years.Cholecystectomy (38091059).Hysterectomy and bilateral salpingo-oophorectomy sample (334592928).Fracture (523503357).Comments: 017 08:10 - Vandana Onofre RNle wristDisc ([id number]).Comments:2016 08:11 - Vandana Onofre RNneck elvira and screwsSpur of ankle bone ([id number]).Comments:1 08:12 - Vandana Onofre RNleft footRotator cuff repair ([id number]).Comments: 017 08:12 - Vandana Onofre RNrightSocial History Alcohol Assessment Use: Never. Tobacco Assessment Never (less than 100 in lifetime) Tobacco Use:..Social & Psychosocial KzwqyqAsmwpny01/20/2017 Alcohol Use: UwmlaGhxqdrc95/20/2017 Smoking tobacco use: Never (less than 100 [...] 01/16/2017 12:52 EST] Rakan Hernandez MD Normal [facility] Inpatient Clinical Summaryon 01-16-2017 Inpatient Clinical Summary [facility] SURGERYClinical Discharge SummaryPERSON INFORMATIONName CLAUDETTE ROSS Age 61 Years 53Sex FEMALE Language Bangladeshi PCP Provider, UnlistedMarital Status Single [facility] 15-[facility] Acct# Arrival 01/16/17 09:25:18Visit Reason LEFT CARPAL TUNNEL RELEASE Acuity LOS 010 23:07Address:[address] [facility] [address]Skdlvkz:PROVIDER INFORMATIONVITALS INFORMATIONVital Sign Triage LatestTemp OralTemp TemporalTemp IntravascularTemp AxillaryTemp Ocdsbg33 Sat 96 % 95 %Respiratory Rate 16 [...] EDUCATION INFORMATIONInstructions:Juan gonzales- Post Op Carpal Tunnel ([facility]Follow up:With: Address: When:Conrado Mccoy [address] [place] [address], [address] [place], [phone] Business (2)Comments:Call for follow up appointmentWith: Address: When:Unlisted ProviderDIAGNOSISCarpal tunnel syndrome on leftComment:PHYS DOC NOTES Normal [facility] Inpatient Patient Summaryon 01-16-2017 Inpatient Patient Summary [facility] [place] [address] patient Discharge InstructionsName: CLAUDETTE ROSS ADOB: [birth year] Address: [address] [place] [address] Care Provider:Name: Provider, UnlistedPhone:After you are discharged if you find you have any questions, please, call [phone] ext [phone] to speak to a nurse.Discharge Diagnosis: Carpal [...] or business decisions or sign any legal documentsClermont County Hospital would like to thank you for allowing us to assist you with your healthcare needs. The following includes patient education materials and information regarding your injury/illness.CLAUDETTE ROSS has been given the following list of follow-up instructions, prescriptions, and patient education materials:Follow-up InstructionsWith: Address: When:Conrado Mccoy [address] [place] [address], [address] [place], [phone] Business (2)Comments:Call for follow up appointmentWith: Address: [...] while awake-DO NOT lift heavy objects or translator deaf forcefully with your hand-Change your dressing in [...] or concerns, please call the office at [phone]-Follow up as scheduledViruses or BacteriaWhat?s got you [...] Antibiotics Bet[place] Department of Health and Human ServicesWexner Medical Centerers for Disease Control and Prevention October 2013 [facility] MAGR Intraoperative Recordon 01-16-2017 [facility] Intraoperative Record [facility] Intra-Op Record Summary Primary Physician: Conrado Mccoy DO Finalized Date/Time: 01/16/17 15:01:02 Pt. Name: ARPITROD CLAUDETTE Esmer Neves./Sex: 1955 FEMALE Med Rec #: [id number] Physician: Conrado Mccoy DO Financial #: [id number] Pt. Type: D Room/Bed: / Admit/Disch: 01/16/17 [...] Role Performed Surgeon - Primary Anesthesiologist of [employer] Supervisor Record Time In 01/16/17 13:11:00 01/16/17 13:11:00 01/16/17 13:11:00 Time Out 01/16/17 13:44:00 01/16/17 13:44:00 01/16/17 13:44:00 Procedure Carpal Tunnel Carpal Tunnel Carpal Tunnel Release(Left) Release(Left) Release(Left) Last Modified By: Valentina, Caroline Rajan RN, RN, Stephanie RN 01/16/17 14:29:30 01/16/17 14:29:30 01/16/17 14:29:30 Entry 4 Entry 5 Case Attendee Paul Alas Linda M Regina DRIER UNLOADER Role Performed Scrub Personnel Bracelet Form Coverer Time In 01/16/17 13:11:00 01/16/17 13:11:00 Time [...] the Initial Count Performed By Terri Alas DRIER UNLOADER Initial Count Time 01/16/17 13:10:00 Counts Verification Final Counts Items Included in Sponges, Sharps Final Count Status Correct Final Count Final Counts Caroline Montgomery RN, Final Count Time 01/16/17 13:35:00 Performed By Terri Alas DRIER UNLOADER Surgeon notified of Yes final counts status [...] Unfinalizing Freetext Reason for Unfinalizing 01/16/17 15:00 [facility] Documentation [facility]2017 [facility] Record Summary Primary Physician: Conrado Mccoy DO Finalized Date/Time: 01/16/17 15:27:42 Pt. Name: ARPITRODCLAUDETTE/Sex: 1955 FEMALE Med Rec #: [id number] Physician: Conrado Mccoy DO Financial #: [id number] Pt. Type: D Room/Bed: / Admit/Disch: 01/16/17 [...] Signed By: Susu Stern RN 01/16/17 15:27 [facility] 03-18-2016 [facility] Preoperative Record [facility] Pre-Op Record Summary Primary Physician: Conrado cMcoy DO Finalized Date/Time: 01/16/17 13:05:28 Pt. Name: CLAUDETTE ROSS Esmer Neves./Sex: 1955 FEMALE Med Rec #: [id number] Physician: Conrado Mccoy DO Financial #: [id number] Pt. Type: D Room/Bed: / Admit/Disch: 01/16/17 [...] Signed By: Susu Stern RN 01/16/17 13:05 [facility] Operative Report - Surgeon/P corey [...] on: 01/16/2017 13:32 EST] Con[facility]ado [facility]ccoy DO [facility]ordon 01-10-2017 [facility] Intraoperative Record [facility] Intra-Op Record Summary Primary Physician: Conrado Mccoy DO Finalized Date/Time: 01/10/17 10:13:17 Pt. Name: CLAUDETTE ROSS /Sex: 1955 FEMALE Med Rec #: [id number] Physician: Conrado Mccoy DO Financial #: [id number] Pt. Type: D Room/Bed: / Admit/Disch: 12/12/16 [...] Role Performed Surgeon - Primary Anesthesiologist of [employer] Supervisor Record Time In 12/12/16 16:52:00 12/12/16 16:52:00 12/12/16 16:52:00 Time Out 12/12/16 17:25:00 12/12/16 17:25:00 12/12/16 17:25:00 Procedure Carpal Tunnel Carpal Tunnel Carpal Tunnel Release(Right) Release(Right) Release(Right) Last Modified By: Bina Limon RN, Barbara RN Long, Barbara RN 12/12/16 17:25:48 12/12/16 17:25:48 12/12/16 17:25:48 Entry 4 Entry 5 Case Attendee Chelsie Marcum CST, Leigh-Ann CST Role Performed Scrub Personnel Bracelet Form Coverer Time In 12/12/16 16:52:00 12/12/16 16:52:00 Time [...] Bear, the Initial Count Performed By Chelsie DRIER UNLOADER Initial Count Time 12/12/16 17:00:00 Counts Verification Final Counts Items Included in Sponges, Sharps Final Count Method Manual Final Count Final Count Status Correct Final Counts Bina Limon RN, Bear, Performed By [employer] DRIER UNLOADER Final Count Time 12/12/16 17:14:00 Surgeon notified [...] 12/12/16 17:10:00 Deflated 12/12/16 17:22:00 Applied By Nadine, Conrado Outcome Met (O.60) Yes Henri DO Last [...] Modify Pick List 01/10/17 10:12 MHBLONG [facility] 1 02-22-2016 [facility] Preoperative Record [facility] Pre-Op Record Summary Primary Physician: Conrado Mccoy DO Finalized Date/Time: 12/22/16 13:33:53 Pt. Name: CLAUDETTE ROSS /Sex: 1955 FEMALE Med Rec #: [id number] Physician: Conrado Mccoy DO Financial #: [id number] Pt. Type: D Room/Bed: / Admit/Disch: 12/12/16 [...] consent correct. General Comments: arrives ambulatory to [facility], denies recent cp, sob, new illnesses, pacemaker, defibrillator or sleep apnea Finalized By: Susu Stern RN Document Signatures Signed By: Susu Stern RN 12/22/16 13:33 [facility] Coding Summaryon 12-15-2016 Coding Summary CODING DATE: 017 [facility] STATUS: Home PAYOR: Medicare APC DESCRIPTION [...] Linda Jenkins Date Saved: 12/15/2016 04:40 pm [facility] Coding Summary CODING DATE: 017 [facility] STATUS: Home PAYOR: Medicare APC DESCRIPTION 5431 Level 1 Nerve Procedures ADMIT DX: REASON FOR VISIT DX: G56.01 Carpal tunnel syndrome, right upper limb FINAL DX: PRINCIPAL: G56.01 Carpal tunnel syndrome, right upper limb SECONDARY: PYMT PROC APC STAT DESCRIPTION DOCTOR NAME DATE 00266 5431 J1 Neuroplasty and/or Conrado Mccoy And [...] Rachel Zafar Date Saved: 12/15/2016 01:30 pm [facility] Consent Formson 12-13-2016 Consent Forms [id number]#1.00[facility] History and Physicalon 12-13 History and Physical [id number]#1.00OT[facility] Provider Orderson 12-13-2016 Provider Orders [id number]#1.00OT[facility] Anesthesia Noteon 12-12-2016 Anesthesia Note Patient: Kolby ROSS : 61 years Sex: FEMALE : [birth year]Associated Diagnoses: NoneAuthor: Theodore Guevara MDPostoperative InformationPost Operative Note: Operative Day.Anesthetic utilized: Monitored anesthesia care.Health StatusAllergies:Allergic Reactions (All)Severity Not DocumentedCodeine- Rash.Percocet 5/325- Rash.Vicodin- Rash.Problem list (past medical history):All ProblemsHypothyroidism / SNOMED CT 80581286 / ConfirmedCanceled: No Chronic Problems / Cerner [...] on: 12/12/2016 17:31 EDT] Theodore Guevara MD [facility] Anesthesia Note Patient: Kolby ROSS : [...] (past medical history):All ProblemsHypothyroidism / SNOMED CT 51858583 / ConfirmedCanceled: No Chronic Problems / Cerner NKPAsthma, mildHistoriesFamily History:No family history items have been selected or recorded.Procedure history:Cholecystectomy (68462606).Hysterectomy and bilateral salpingo-oophorectomy sample (463854131).Fracture (524524585).Comments: 08:10 - Vandana Onofre wristDisc ([id number]).Comments:2016 08:11 - Vandana Onofre elvira and screwsSpur of ankle bone ([id number]).Comments:1 08:12 - Vandana Onofre footRotator cuff repair ([id number]).Comments: 08:12 - Vandana Onofre RNrightSocial History Alcohol Assessment Use: Never. Tobacco Assessment Never (less than 100 in lifetime) Tobacco Use:..Social & Psychosocial JhiklkLzezjpg99/20/2017 Alcohol Use: XbxmbCwyfsyf01/20/2017 Smoking tobacco use: Never (less than 100 in l.Physical ExaminationVS/MeasurementsVi jero Signs (last 24 hrs) Last ChartedHeart Rate Peripheral 80 bpm (DEC 12 12:30)Resp Rate 16 br/min (DEC 12 12:30)SBP 129 mmHg (DEC 12 12:41)DBP 83 mmHg (DEC 12 12:41)SpO2 93 % (DEC 12:30)Airway: Mallampati classification. Temporomandibular joint mobility: Good. [...] 12/12/2016 14:32 EDT] Theodore Guevara MD Normal [facility] Inpatient Clinical Summaryon 12-12-2016 Inpatient Clinical Summary [facility] SURGERYClinical Discharge SummaryPERSON INFORMATIONName CLAUDETTE ROSS Age 61 Years 54Sex FEMALE Language Bangladeshi PCP Provider, UnlistedMarital Status Single Med Service Ambulatory SurgeryN 15-74-43 Acct# Arrival 12/12/16 12:05:33Visit Reason SURGERY - RELEASE RIGHT CARPAL TUNNEL Acuity LOS 005 08:24Address:[address] [facility] [facility] [address]Exsrflp:PROVIDER INFORMATIONVITALS INFORMATIONVital Sign Triage LatestTemp OralTemp TemporalTemp IntravascularTemp AxillaryTemp Mcrisd80 Sat 96 % 96 %Respiratory Rate 16 [...] EDUCATION INFORMATIONInstructions:Juan gonzales- Post Op Carpal Tunnel ([facility])Follow up:With: Address: When:Conrado Mccoy [address] [place] [address] Business (2)With: Address: When:Unlisted ProviderDIAGNOSISRight carpal tunnel syndromeComment:PHYS DOC NOTES Normal [facility] Inpatient Patient Summaryon 12-12-2016 Inpatient Patient Summary [address] [address] patient Discharge InstructionsName: VANDANA CLAUDETTE ADOB: [birth year] Address: [address] [place] [address] [place], [place] [address]Primary Care Provider:Name: Provider, UnlistedPhone:Discharge Diagnosis: Right carpal [...] or business decisions or sign any legal documentsClermont County Hospital would like to thank you for allowing us to assist you with your healthcare needs. The following includes patient education materials and information regarding your injury/illness.CLAUDETTE ROSS has been given the following list of follow-up instructions, prescriptions, and patient education materials:Follow-up InstructionsWith: Address: When:Conrado Ontiveros[address], [place], [phone] Business (2)With: Address: When:Unlisted ProviderMedicationsDuring the course [...] while awake-DO NOT lift heavy objects or translator deaf forcefully with your hand-Change your dressing in [...] or concerns, please call the office at [phone]-Follow up as scheduled Viruses or BacteriaWhat?s got [...] for Disease Control and Prevention [facility]2016 [facility] Postoperative Record [facility] Record Summary Primary Physician: Conrado Mccoy DO Finalized Date/Time: 12/12/16 18:18:35 Pt. Name: CLAUDETTE ROSS/Sex: 1955 FEMALE Med Rec #: [id number] Physician: Conrado Mccoy DO Financial #: [id number] Pt. Type: D Room/Bed: / Admit/Disch: 12/12/16 [...] By: Bina Limon RN 12/12/16 18:18 Normal [facility] Operative Report - Surgeon/P corey 12-12-2016 Operative [...] 12/12/2016 17:29 EDT] Conrado Mccoy DO Normal [facility] .Auto Diff 1on 12-09-2016 Auto Baso % 0.3 % Normal 0.2-2.0 [facility] Comment on above: Performed By: #### 7 [id number], [id number], [id number] ####[facility] (DEFAULT)[address] [place] [address] Auto [place] % 10 % Normal 1-12 [facility] Comment on above: Performed By: #### 7 [id number], [id number], [id number] ####[facility] (DEFAULT)[address] [place] [address] Auto Neut % 63 % Normal 44-88 [facility] Comment on above: Performed By: #### 7 [id number], [id number], [id number] ####[facility] (DEFAULT)[address] [place] [address] Baso Abs# 0.0 x10 Normal 0.0-0.2 [facility] Comment on above: Performed By: #### 7 [id number], [id number], [id number] ####[facility] (DEFAULT)[address] [place] [address] Eos Abs# 0.1 x10 Normal 0.0-0.4 [facility] Comment on above: Performed By: #### 7 [id number], [id number], [id number] ####[facility] (DEFAULT)[address] [place] [address] Eosinophils/100 leukocytes 1.5 % Normal 0.9-4.0 [facility] Comment on above: Performed By: #### 7 [id number], [id number], [id number] ####[facility] (DEFAULT)[address] [place] [address] Lymphocytes 1.5 x10 Normal 1.3-2.9 [facility] Comment on above: Performed By: #### 7 [id number], [id number], [id number] ####[facility] (DEFAULT)[address] [place] [address] Lymphocytes/100 leukocytes 25 % Normal 14-48 [facility] Comment on above: Performed By: #### 7 [id number], [id number], [id number] ####[facility] (DEFAULT)[address] [place] [address] Hopewell Abs# 0.6 x10 Normal 0.0-0.8 [facility] Comment on above: Performed By: #### 7 930503, [id number], [id number] ####[facility] (DEFAULT)[address] [place] [address] Neut Abs# 3.8 x10 Normal 1.5-9.2 [facility] Comment on above: Performed By: #### 7 [id number], [id number], [id number] ####[facility] (DEFAULT)[address] [place] [address] [facility] Standardon 12-09-2016 eGFR (non-black) mL/min/{1.73_m2} Invalid Interpretation Code [facility] Comment on above: Performed By: #### 7 [id number], [id number], [id number] ####[facility] (DEFAULT)[address] [place] [address] eGFR (non-black) mL/min/{1.73_m2} Invalid Interpretation Code [facility] Comment on above: Result Comment: Gyro Mechanic marky Kidney disease could be indicated at eGFRs of less than 60 ml/min/1.73m2. Kidney Failure is indicated at less than 15 ml/min/1.73m2 Performed By: #### 7 [id number], [id number], [id number] ####[facility] (DEFAULT)[address] [place] [address] Anion gap 11.0 mmol/L Normal 5.0-19.0 [facility] Comment on above: Performed By: #### 7 [id number], [id number], [id number] ####[facility] (DEFAULT)[address] [place] [address] BUN/Creatinine Ratio 12.0 mg/mg Normal 4.6-16.2 [facility] Comment on above: Performed By: #### 7 268427, [id number], [id number] ####[facility] (DEFAULT)[address] [place] [address] Calcium 9.1 mg/dL Normal 8.9-10.3 [facility] Comment on above: Performed By: #### 7 696156, [id number], [id number] ####[facility] (DEFAULT)[address] [place] [address] Chloride 104 mmol/L Normal 101-111 [facility] Comment on above: Performed By: #### 7 827995, [id number], [id number] ####[facility] (DEFAULT)[address] [place] [address] CO2 26 mmol/L Normal 21-32 [facility] Comment on above: Performed By: #### 7 948679, [id number], [id number] ####[facility] (DEFAULT)[address] [place] [address] Creatinine 0.86 mg/dL Normal 0.60-1.30 [facility] Comment on above: Performed By: #### 7 479300, [id number], [id number] ####[facility] (DEFAULT)[address] [place] [address] Glucose mass conc 112.0 mg/dL Normal 74.0-118.0 [facility] Comment on above: Performed By: #### 7 651244, [id number], [id number] ####[facility] (DEFAULT)[address] [place] [address] Osmolality 274 mOsm/L Invalid Interpretation Code [facility] Comment on above: Performed By: #### 7 375149, [id number], [id number] ####[facility] (DEFAULT)[address] [place] [address] Potassium molar conc 3.8 mmol/L Normal 3.6-5.1 [facility] Comment on above: Performed By: #### 7 955419, [id number], [id number] ####[facility] (DEFAULT)[address] [place] [address] Sodium 137.0 mmol/L Normal 136.0-144. 0 [facility] Comment on above: Performed By: #### 7 528761, [id number], [id number] ####[facility] (DEFAULT)[address] [place] [address] Urea nitrogen 10 mg/dL Normal 8-26 [facility] Comment on above: Performed By: #### 7 922779, [id number], [id number] ####[facility] (DEFAULT)[address] [place], [place] [id number] CBC w/ Auto Diffon 7 Erythrocyte distribution width Auto Ratio (RBC) 13.2 % Normal 11.5-15.0 [facility] Comment on above: Performed By: #### 7 257068, [id number], [id number] ####[facility] (DEFAULT)[address] [place] [address] Erythrocytes (RBC) 4.40 x10 Normal 3.70-5.30 [facility] Comment on above: Performed By: #### 7 638794, [id number], [id number] ####[facility] (DEFAULT)[address] [place] [address] Hematocrit (HCT) 39.4 % Normal 33.7-40.4 [facility] Comment on above: Performed By: #### 7 108510, [id number], [id number] ####[facility] (DEFAULT)[address] [place] [address] Hemoglobin mass conc (Bld) 13.8 g/dL Normal 11.3-15.9 [facility] Comment on above: Performed By: #### 7 987680, [id number], [id number] ####[facility] (DEFAULT)[address] [place] [address] Man Diff? Auto Normal [facility] Comment on above: Performed By: #### 7 050809, [id number], [id number] ####[facility] (DEFAULT)[address] [place] [address] MCH 31 pg Normal 24-34 [facility] Comment on above: Performed By: #### 7 330946, [id number], [id number] ####[facility] (DEFAULT)[address] [place] [address] MCHC mass conc (RBC) 35 g/dL Normal 26-37 [facility] Comment on above: Performed By: #### 7 437694, [id number], [id number] ####[facility] (DEFAULT)[address] [place] [address] MCV 90 fL Normal 81-100 [facility] Comment on above: Performed By: #### 7 283861, [id number], [id number] ####[facility] (DEFAULT)[address] [place] [address] Platelet mean volume (PMV) 8.6 fL Normal 6.3-10.2 [facility] Comment on above: Performed By: #### 7 135778, [id number], [id number] ####[facility] (DEFAULT)[address] [place] [address] Platelets 194 x10 Normal 138-427 [facility] Comment on above: Performed By: #### 7 819780, [id number], [id number] ####[facility] (DEFAULT)[address] [place] [address] WBC (Leukocytes) 6.0 x10 Invalid Interpretation Code [facility] Comment on above: Performed By: #### 7 502341, [id number], [id number] ####[facility] (DEFAULT)[address] [place] [address] Vital Signs Date Time Vital Sign Value Performing Clinician Facility 03-25-2024 14:56-0500 Diastolic blood pressure 84 mm[Hg] Jessica Elianaz [employer] Work Phone: [facility] 03-25-2024 14:56-0500 Systolic blood pressure 152 mm[Hg] Jessica Elianaz [employer] ANALYST Work Phone: [facility] 03-25-2024 14:26-0500 Body height 162.6 cm Jessica Aichholz [employer] ANALYST Work Phone: [facility] 03-25-2024 14:26-0500 Body mass index (BMI) [Ratio] 32.68 kg/m2 Jessica Levhholz [employer] ANALYST Work Phone: [facility] 03-25-2024 14:26-0500 Body temperature 98.49 [degF] Jessica Elianaz [employer] ANALYST Work Phone: [facility] 03-25-2024 14:26-0500 Body weight 86.36 kg Jessica Aichholz [employer] ANALYST Work Phone: [facility] 03-25-2024 14:26-0500 Heart rate 86 /min Jessica Aichholz [employer] A[employer]LYST Work Phone: [facility] 03-25-2024 14:26-0500 Respiratory rate 18 /min Jessica Elianaz [employer] ANALYST Work Phone: [facility] 03-25-2024 14:26-0500 SaO2% (BldA) [Mass fraction] 96 % Jessicaesmer Dolanholz [employer] ANALYST Work Phone: [facility] 12-20-2023 16:36-0400 Body height 170.2 cm Jessica Lvehholz [employer] ANALYST Work Phone: [facility] 12-20-2023 16:36-0400 Body mass index (BMI) [Ratio] 29.6 kg/m2 Jessica Kelsiholz [employer] ANALYST Work Phone: [facility] 12-20-2023 16:36-0400 Body temperature 97.81 [degF] Jessica Levhholz [employer] ANALYST Work Phone: [facility] 12-20-2023 16:36-0400 Body weight 85.73 kg Jessica Kelsiholz [employer] ANALYST Work Phone: [facility] 12-20-2023 16:36-0400 Diastolic blood pressure 72 mm[Hg] Jessica Kelsiholz [employer] ANALYST Work Phone: [facility] 12-20-2023 16:36-0400 Heart rate 80 /min Jessica Levhholz [employer] ANALYST Work Phone: [facility] 12-20-2023 16:36-0400 Respiratory rate 18 /min Jessica Levhholz [employer] ANALYST Work Phone: [facility] 12-20-2023 16:36-0400 SaO2% (BldA) [Mass fraction] 96 % Jessica Kelsiholz [employer] ANALYST Work Phone: [facility] 12-20-2023 16:36-0400 Systolic blood pressure 124 mm[Hg] Jessica Aichholz [employer] ANALYST Work Phone: [facility] 10-18-2023 13:05-0400 Body height 170.2 cm Jessica Levhholz [employer]S ANALYST Work Phone: [facility] 10-18-2023 13:05-0400 Body mass index (BMI) [Ratio] 29.82 kg/m2 Jessicaesmer Dolanholz [employer] ANALYST Work Phone: [facility] 10-18-2023 13:05-0400 Body temperature 97.3 [degF] Jessica Dolanholz [employer]S ANALYST Work Phone: [facility] 10-18-2023 13:05-0400 Body weight 86.36 kg Jessicaesmer Dolanholz [employer]S ANALYST Work Phone: [facility] 10-18-2023 13:05-0400 Diastolic blood pressure 76 mm[Hg] Jessica Kelsiholz [employer] ANALYST Work Phone: [facility] 10-18-2023 13:05-0400 Heart rate 82 /min Jessica Kelsiholz [employer] ANALYST Work Phone: [facility] 10-18-2023 13:05-0400 Respiratory rate 18 /min Jessica Levhholz [employer] ANALYST Work Phone: [facility] 10-18-2023 13:05-0400 SaO2% (BldA) [Mass fraction] 96 % Jessica Kelsiholz [employer]S ANALYST Work Phone: [facility] 10-18-2023 13:05-0400 Systolic blood pressure 112 mm[Hg] Jessica Kelsiholz [employer] ANALYST Work Phone: [facility] 11-03-2021 15:36-0400 Blood Pressure Location LINDA ISABELLA [facility] 11-03-2021 15:36-0400 Diastolic blood pressure 87 mm[Hg] LINDA ISABELLA [facility] 11-03-2021 15:36-0400 Heart rate 101 /min LINDA ISABELLA [facility] 11-03-2021 15:36-0400 Systolic blood pressure 136 mm[Hg] LINDA ISABELLA [facility] Encounters Encounter Date Encounter Type Care Provider Facility Start: 03-25-2024 End: 03-25-2024 Office outpatient visit 25 minutes Jessica Sosa [employer] ANALYST Work Phone: [facility] Comment on above: Primary hypertension (CMS/HCC) (Primary Dx); Obstructive sleep apnea; Hypothyroidism, unspecified type (CMS/HCC); Overweight (BMI 25.0-29.9); Osteopenia, unspecified location; Anxiety and depression (CMS/HCC); Asymptomatic microscopic hematuria; Vitamin D deficiency; Mixed hyperlipidemia (CMS/HCC); Needs flu shot; Allergic rhinitis, unspecified seasonality, unspecified trigger Start: 03-25-2024 End: 03-25-2024 ambulatory JESSICA ELIANAZ Not Available Start: 03-25-2024 End: 03-25-2024 Bamboo flowsheet Jessica Sosa [employer] ANALY[employer] Work Phone: [facility] Start: 03-25-2024 End: 03-25-2024 Bamboo flowsheet Jessica Ian [employer] ANALYST Work Phone: [facility] Start: 12-20-2023 End: 12-20-2023 ambulatory JESSICA IAN Not Available Start: 12-20-2023 End: 12-20-2023 Bamboo flowsheet Jessica Ian [employer] ANALYST Work Phone: [facility] Start: 12-20-2023 End: 12-20-2023 Bamboo flowsheet Jessica Ian [employer]S ANALYST Work Phone: [facility] Start: 12-20-2023 End: 12-20-2023 Patient encounter procedure Jessica Ian [employer] ANALYST Work Phone: [facility] Comment on above: Encounter for subseq uent annual wellness visit (AWV) in Medicare patient (Primary Dx); Obesity (BMI 30-39.9); Hypothyroidism, unspecified type (CMS/HCC); Mixed hyperlipidemia (CMS/HCC); Anxiety and depression (CMS/HCC); Overweight (BMI 25.0-29.9); Obstructive sleep apnea; Osteopenia, unspecified location; Post-menopausal Start: 10-18-2023 End: 10-18-2023 Bamboo flowsheet Jessica Levamegwenz [employer] ANALYST Work Phone: [facility] Start: 10-18-2023 End: 10-18-2023 Bamboo flowsheet Jessica Aichholz [employer] ANALYST Work Phone: [facility] Start: 10-18-2023 End: 10-18-2023 Office outpatient visit 15 minutes Jessica Aichholz [employer] ANALYST Work Phone: [facility] Comment on above: Encounter for screen ing mammogram for malignant neoplasm of breast; Osteopenia, unspecified location; Anxiety and depression (CMS/HCC); Allergic rhinitis, unspecified seasonality, unspecified trigger; Vitamin D deficiency; Hypothyroidism, unspecified type (CMS/HCC); Urinary incontinence in female; Mixed hyperlipidemia (CMS/HCC); Obesity (BMI 30-39.9); Obstructive sleep apnea Start: 10-18-2023 End: 10-18-2023 ambulatory JESSICA AICHHOLZ Not Available Start: 07-18-2023 End: 07-18-2023 ambulatory JESSICA AICHHOLZ Not Available Start: 04-13-2023 End: 04-13-2023 ambulatory JESSICA AICHHOLZ Not Available Start: 11-09-2022 End: 11-10-2022 ambulatory LINDA MASON Facility:[facility] Start: 11-09-2022 End: 11-09-2022 Patient encounter procedure LINDA MASON [facility] Start: 06-29-2022 ambulatory PERSONALIZED LIVING MANAGER JESSICA AICHHOLZ Facil ity:[facility] Start: 05-25-2022 End: 05-26-2022 ambulatory PERSONALIZED LIVING MANAGER JESSICA AICHHOLZ Facility:[facility] Start: 05-09-2022 End: 05-10-2022 ambulatory PERSONALIZED LIVING MANAGER JESSICA AICHHOLZ Facility:[facility] Start: 05-02-2022 End: 05-02-2022 ambulatory PERSONALIZED LIVING MANAGER JESSICA AICHHOLZ Facility: Start: 03-11-2022 End: 03-11-2022 ambulatory Jessica Sosa Work Phone: [facility] Work Phone: Start: 03-11-2022 End: 03-11-2022 Patient encounter procedure Jessica Dolangwenmurray Work Phone: [facility] Work Phone: Start: 12-08-2021 End: 12-09-2021 ambulatory RODNEY SOSA Facility:[facility] Start: 11-03-2021 End: 11-03-2021 Patient encounter procedure LINDA MASON [facility] Start: 08-09-2021 End: 08-10-2021 ambulatory RODNEY NEELY LEVAmeGWENMurray Facility:[facility] Start: 06-24-2021 End: 06-25-2021 ambulatory PERSONALIZED LIVING MANAGER JESSICA SOSA Facility: Start: 03-18-2021 End: 03-19-2021 ambulatory MD NIDHI MICHAELS Facility:[facility] Start: 01-26-2021 End: 01-26-2021 Emergency department patient visit MD NIDHI MICHAELS Facility:[facility] Start: 03-05-2019 End: 03-06-2019 Patient encounter procedure RALPH ZAVALA Facility:[facility] Start: 01-16-2017 End: 01-24-2017 Ambulatory Facility:[facility] Start: 12-12-2016 End: 12-20-2016 Ambulatory Facility:[facility] Start: 12-10-2016 End: 12-13-2016 Ambulatory Facility:[facility] Procedures Date Procedure Procedure Detail Performing Clinician Start: 10-30-2023 Mammography Jessica Reji arredondo [employer]LY[employer] Work Phone: Start: 09-27-2022 Mammography Jessica Reji arredondo [employer] ANALYST Work Phone: Start: 03-11-2022 Plain chest X-ray Jessica Aichholz Work Phone: Start: 06-27-2018 Repair of stress inc ontinence by suprapubic sling LINDA MASON Start: 10-09-2017 Cystourethroscopy an d dilation of bladder LINDA MASON Start: 02-20-2017 Colonoscopy LINDA GONZALEZ Start: 12-22-2016 Colonoscopy Jessica Reji carrollmurray [employer] ANALYST Work Phone: Start: 06-11-2014 left synovectomy to [...] Screening for malign ant neoplasm of colon [facility] Start: 12-19-2024 Medicare Annual Well ness (AWV) Medicare Annual Wellness (AWV) [facility] Start: 10-29-2024 Screening for malign ant neoplasm of breast Mammogram [facility] Start: 03-25-2024 End: 03-25-2024 Patient encounter procedure 03/25/2024 2:20 PM EST Office Visit [facility] [address] [place] [address] Jessica Sosa, [address] [place] [id number] Obstructive sleep apnea (Primary Dx); Hypothyroidism, unspecified type (CMS/HCC); Overweight (BMI 25.0-29.9); Osteopenia, unspecified location; Anxiety and depression (CMS/HCC); Asymptomatic microscopic hematuria; Vitamin D deficiency; Mixed hyperlipidemia (CMS/HCC) [facility] Comment on above: Obstructive sleep ap sarah (Primary Dx); Hypothyroidism, unspecified type (CMS/HCC); Overweight (BMI 25.0-29.9); Osteopenia, unspecified location; Anxiety and depression (CMS/HCC); Asymptomatic microscopic hematuria; Vitamin D deficiency; Mixed hyperlipidemia (CMS/HCC) Start: 03-25-2024 End: 03-25-2025 25-hydroxyvitamin D3 [Mass/volume] in Serum or Plasma Vitamin D 25 hydroxy Lab Routine Vitamin D deficiency Expected: 03/25/2024 (Approximate), Expires: 03/25/2025 [facility] Comment on above: Expected: 03/25/2024 (Approximate), Expires: 03/25/2025 Start: 03-25-2024 End: 03-25-2025 CBC W Auto Differential panel - Blood CBC and differential Lab Routine Obstructive sleep apnea Hypothyroidism, unspecified type (CMS/HCC) Asymptomatic microscopic hematuria Expected: 03/25/2024 (Approximate), Expires: 03/25/2025 [facility] Work Phone: Comment on above: Expected: 03/25/2024 (Approximate), Expires: 03/25/2025 Start: 03-25-2024 End: 03-25-2025 Comprehensive metabolic 2000 panel - Serum or Plasma Comprehensive metabolic panel Lab Routine Hypothyroidism, unspecified type (CMS/HCC) Overweight (BMI 25.0-29.9) Osteopenia, unspecified location Expected: 03/25/2024 (Approximate), Expires: 03/25/2025 [facility] Comment on above: Expected: 03/25/2024 (Approximate), Expires: 03/25/2025 Start: 03-25-2024 End: 03-25-2025 Lipid 1996 panel - Serum or Plasma Lipid panel Lab Routine Mixed hyperlipidemia (CMS/HCC) Expected: 03/25/2024 (Approximate), Expires: 03/25/2025 [facility] Comment on above: Expected: 03/25/2024 (Approximate), Expires: 03/25/2025 Start: 03-25-2024 End: 03-25-2025 Thyrotropin [Units/volume] in Serum or Plasma TSH Lab Routine Hypothyroidism, unspecified type (CMS/HCC) Expected: 03/25/2024 (Approximate), Expires: 03/25/2025 [facility] Comment on above: Expected: 03/25/2024 (Approximate), Expires: 03/25/2025 Start: 03-25-2024 End: 03-25-2025 Thyroxine (T4) free [Mass/volume] in Serum or Plasma T4, free Lab Routine Hypothyroidism, unspecified type (CMS/HCC) Expected: 03/25/2024 (Approximate), Expires: 03/25/2025 [facility] Comment on above: Expected: 03/25/2024 (Approximate), Expires: 03/25/2025 Start: 03-25-2024 End: 03-25-2025 Urinalysis complete panel - Urine Urinalysis with reflex microscopic (clean catch) Lab Routine Asymptomatic microscopic hematuria Expected: 03/25/2024 (Approximate), Expires: 03/25/2025 [facility] Comment on above: Expected: 03/25/2024 (Approximate), Expires: 03/25/2025 Start: 12-21-2023 Influenza vaccination Influenza Vacc ine (#1) [facility] Comment on above: Postponed from 10/21 (Patient Refused) Start: 12-20-2023 End: 12-20-2023 Patient encounter procedure [facility] Comment on above: Arrived Start: 12-20-2023 End: 12-19-2024 DXA Skeletal system Views for bone density DEXA bone density Imaging Routine Osteopenia, unspecified location Post-menopausal Expected: 12/20/2023 (Approximate), Expires: 12/19/2024 [facility] Work Phone: Comment on above: Expected: 12/20/2023 (Approximate), Expires: 12/19/2024 Start: 12-16-2023 Medicare Annual Well ness (AWV) Medicare Annual Wellness (AWV) [facility] Start: 10-22-2023 Influenza vaccination Influenza Vacc ine (#1) [facility] Start: 10-18-2023 End: 12-17-2024 MG Breast - bilateral Screening Bilateral screening mammogram Imaging Routine Encounter for screening mammogram for malignant neoplasm of breast Expected: 10/18/2023 (Approximate), Expires: 12/17/2024 [facility] Work Phone: Comment on above: Expected: 10/18/2023 (Approximate), Expires: 12/17/2024 Start: 09-28-2023 Screening for malign ant neoplasm of breast Mammogram [facility] Start: 1955 Medicare Annual Well ness (AWV) Medicare Annual Wellness (AWV) [facility] Start: 1955 Screening for malign ant neoplasm of colon [facility] Immunizations Immunization Date Immunization Notes Care Provider Xena brewer 03-25-2024 Seasonal trivalent influenza vaccine, adjuvanted, preservative free Jessica Aichholz [employer] ANALY[employer] Work Phone: [facility] 01-04-2023 Influenza, High-dose Seasonal, Quadrivalent, Preservative Free Jessica Aichholz [employer]S ANALYST Work Phone: [facility] 01-04-2023 influenza virus vacc ine, unspecified formulation Jessica Aichholz [employer]S ANALYST Work Phone: [facility] Payers Date Payer Category Payer Medicare [employer] [place] [id number] 2022-Present PO [address] [place] [address] [id number] 2022 Medicare (Managed Care) [facility] MEDICARE [id number] 2022 Private Health Insurance [id number] 2022 Self-pay 2021 Unknown [id number] 2021 Unknown 2019 Medicaid 2017 Unknown [id number] 2016 Medicare [id number] 1959 Private Health Insurance [id number] 1959 Unknown [id number] 1954 Unknown [id number] 2..840.1.626657.3.579.2. 647 1954 Unknown [id number] 2.840.1.113259.3.579.2. 196 1954 Unknown [id number] 2.16.840.1.368466.3.579.2. 196 1954 Unknown [id number] 2.16.840.1.916844.3.579.2. 593 1954 Unknown [id number] 2.16.840.1.625768.3.579.2. 593 1954 Unknown [id number] 2.16.840.1.237616.3.579.2. 593 1954 Unknown [id number] 2.16.840.1.383411.3.579.2. 593 1954 Unknown [id number] 2.16.840.1.528902.3.579.2. 593 1954 Unknown [id number] 2.16.840.1.238650.3.579.2. 593 1954 Unknown [id number] 2.16.840.1.045218.3.579.2. 593 1954 Unknown [id number] 2.16.840.1.889576.3.579.2. 727 1954 Unknown [id number] 2.16.840.1.883587.3.579.2. 1259 1954 Unknown [id number] 2.16.840.1.641295.3.579.2. 1259 1954 Unknown [id number] 2.16.840.1.158202.3.579.2. 1259 1954 Unknown [id number] 2.16.840.1.850494.3.579.2. 1259 1954 Unknown [id number] 2.16.840.1.639925.3.579.2. 1259 Medicaid [id number] Private Health Insurance [id number] Unknown [id number] 2.16.840.1.290240.3.579.2. 531 Social History Date Type Detail Facility Start: 11-03-2021 End: 01-31-2023 Tobacco smoking status Never smoked tobacco (finding) [facility] Start: 03-28-2023 End: 12-20-2023 Sex Assigned At Female [facility] Start: 1955 Sex Assigned At Female [facility] Start: 01-31-2023 Tobacco use and exposure Smokeless tobacco non-user [facility] Start: 10-18-2023 End: 03-25-2024 Alcoholic beverage intake [...] 11-03-2021 Functional Status N/A [facility] Clinical Notes 01-26-2021 to 03-25-2024 Jessica Sosa, KEY - 03/25/2024 2:59 PM Farrah Sosa NP - 03/25/2024 2:43 PM Farrah Sosa NP - 03/25/2024 2:20 PM Farrah Sosa NP - 03/25/2024 7:06 AM ESTPatient Instructions Note [...] OTHER SURGICAL HISTORY Right hav 5th ht TX REVISE ULNAR NERVE AT ELBOW Right 04/04/2018 [...] Relevant Orders Flu vaccine, trivalent, adjuvanted, PF ([id number]) (Fluad trivalent single dose syringe) Associated Problem(s): [...] toleration of things documented in this encounter [facility] 03-25-2024 Instructions Jessica Sosa NP - 03/25/2024 2:20 PM EST For blood pressure: start losartan 25mg pill daily. Get labs checked in 3 weeks Low sodium diet Bone Density scan at [facility] documented in this encounter [facility] 12-20-2023 History of Present illness Narrative Associated [...] in the last year:no Specialist: Dr Evans (urogyn), [place] (eye) HCPOA/Living Will: no Concerns: none SUBJECTIVE: [...] OTHER SURGICAL HISTORY Right hav 5th ht TX REVISE ULNAR NERVE AT ELBOW Right 04/04/2018 [...] a yearly basis documented in this encounter [facility] 10-18-2023 History of Present illness Narrative Associated [...] from company on getting machine. It is [employer] [phone]. I spoke with Loraine at [facility], she also does not [...] 04/13/2023 Allergic rhinitis 04/13/2023 Anxiety and depression (CMS/[facility]) 04/13/2023 Asymptomatic microscopic hematuria 04/13/2023 Bronchitis 04/13/2023 [...] OTHER SURGICAL HISTORY Right hav 5th ht TX REVISE ULNAR NERVE AT ELBOW Right 04/04/2018 [...] Bilateral screening mammogram documented in this encounter [facility] 12-09-2021 Note PROCEDURE: XR HIP RT 2 3V WO PELVIS HISTORY: Pain in right hip joint , acute; no known injury COMPARISON: None. FINDINGS: BONES:No fracture, acute abnormality, or significant arthropathy. SOFT TISSUES:No visible soft tissue swelling. EFFUSION:None visible. OTHER: Negative. IMPRESSION: 1. No acute bone abnormality or significant degenerative joint disease. Electronically authenticated by: JEROME AYALA Date: 2021-12-09 06:48 [facility] 11-03-2021 Hospital Discharge instructions Patient Education [...] fried and sweet foods. General instructions Take [id number] and prescription medicines only as told by [...] 12/03/2009 Document Revised: 05/30/2019 Document Reviewed: 02/22/2018 [facility] [employer] Patient Education 2020 Elli. Follow Up Care 10/15/2021 09:20:30 With:LINDA MASON PA-C, URL Address: [address] [place] [address] When:1 year [facility] 01-26-2021 Note Procedure: Portable AP view of [...] Signed, Electronically Signed in Other Vendor System) [facility] Evaluation + Plan note Future Appointments Appointment Date:11/09/2022 02:00:00 PM Scheduled Provider:LINDA MASON PA-C Location:[facility] Appointment Type:URO Office Visit [facility] Evaluation note No assessment inform ation available [facility] Work Phone: Evaluation note Diagnosis Mild [...] available for this section [facility] Hospital Discharge instructions No data available for this section [facility] progress note No data available for this section [facility] Summary Purpose Family History No Family History Records FoundNo Family History Records FoundNo Family History Records FoundNo Family History Records FoundNo Family History Records FoundNo Family History Records FoundNo Family History Records FoundNo Family History Records Found Advance Directives No Advanced Directives Records Found Advance Directive Response Recorded Date/ Time Advance Directives No March 11, 2022 10:04am Hospital Course Note MR#: [id number] [facility] Pt. Name: Claudette Ross Admitted: 03/05/2019 Discharged: 03/06/2019 Date of : 1955 Physician: Ralph Zavala MD DISCHARGE SUMMARY PRIMARY CARE PHYSICIAN: Jessica Sosa, N.PChanda PRINCIPAL PROBLEMS: 1. Unstable angina-ruled out. 2. [...] and she was transported via EMS to [facility]. In [place], an EKG was done that showed no significant changes and initial t (more content not included)... Chief Complaint and Reason for Visit Chief Complaint m20.11 Additional Source Comments INFORMATION SOURCE (unrecogn ized section and content) DATE CREATED AUTHOR 08/08/2017 [facility] DATE CREATED AUTHOR AUTHOR'S ORGANIZ ATION 03/19/2019 [facility] DATE CREATED AUTHOR AUTHOR'S ORGANIZ ATION 03/19/2021 [facility] DATE CREATED AUTHOR AUTHOR'S ORGANIZ ATION 04/06/2021 [facility] DATE CREATED AUTHOR AUTHOR'S ORGANIZ ATION 03/26/2022 [facility] DATE CREATED AUTHOR AUTHOR'S ORGANIZ ATION 06/22/2022 [facility] DATE CREATED AUTHOR AUTHOR'S ORGANIZ ATION 11/11/2022 [facility] DATE CREATED AUTHOR AUTHOR'S ORGANIZ ATION 03/26/2024 [facility] dicmt Specialists [facility] Care Team (unrecognized sect ion and content) Team Status: Inactive Member Role Status Dates Jessica Sosa Primary Care Provider Active Yordan Batres DPM Attending Provider Active Team Status: Active Member Role Status Dates Jessica Sosa Primary Care Provider Active Loan Inspector Relationship Specialty Start Date End Date Pop Carreon MD [address] [place] [phone] PCP - General Family Medicine 04/13/23 Jessica Sosa NP [address] [place] [address] Nurse Practitioner Family Medicine 04/13/23 Loan Inspector Relationship Specialty Start Date End Date Pop Carreon MD [address] [place] [phone] PCP - General Family Medicine 04/13/23 Jessica Sosa NP [address] [place] [address] Nurse Practitioner Family Medicine 04/13/23 Loan Inspector Relationship Specialty Start Date End Date Pop Carreon MD [address] [place] [phone] PCP - General Family Medicine 04/13/23 Jessica Sosa NP [address] [place] [address] Nurse Practitioner Family Medicine 04/13/23 Loan Inspector Relationship Specialty Start Date End Date Pop Carreon MD [address] [place] [phone] PCP - General Family Medicine 04/13/23 Jessica Sosa NP [address] [place] [address] Nurse Practitioner Family Medicine 04/13/23 Loan Inspector Relationship Specialty Start Date End Date Pop Carreon MD [address] [place] [phone] PCP - General Family Medicine 04/13/23 Jessica Sosa NP [address] [place] [address] Nurse Practitioner Family Medicine 04/13/23 Meghana Canseco DO [address] [place] [address] Referring Physician Neurology 03/15/24 Loan Inspector Relationship Specialty Start Date End Date Pop Carreon MD [address] [place] [phone] PCP - General Family [facility] 04/13/23 Jessica Sosa NP [address] [place] [phone] Nurse Practitioner Family Medicine 04/13/23 Meghana Canseco DO [address] [place] [address] Referring Physician Neurology 03/15/24 Goals (unrecognized section [...] BE BASED ON THE PRIMARY CLINICAL RECORDS. [employer] [facility]. provides no warranty or guarantee of the accuracy or completeness of information in this document.
--- NOTE | 2024-04-03 09:41 | XR_ITS ---
[address] [address] Patient Name: DANELLE ROSS MRN: [id number] date: 1955 Sex: F Assigned Patient Location: [facility] Current Patient Location: Accession/Order Number: [id number] Exam Date: 04/03/2024 09:28 Report Date: 04/04/2024 08:01 At the request of: FLORINDA FELDMAN Procedure: XR DEXA axial skeleton EXAMINATION: XR DEXA axial skeleton HISTORY: Osteopenia COMPARISON: DEXA bone densitometry 06/24/2021 TECHNIQUE: Dual-energy X-ray absorptiometry (DXA) was performed. FINDINGS: SPINE ANALYSIS: Average bone mineral density is 1.254 g/cm2. T-score (standard deviation relative to young adult mean): 0.6 . -2.9% change since prior study. HIP ANALYSIS: Lowest bone mineral density is within the left femoral neck, 0.910 g/cm2. T-score (standard deviation relative to young adult mean): -0.9 . +6.8% change since prior study. XR/XR DEXA axial skeleton IMPRESSION: World Health Organization Classification: Normal - Low Fracture Risk FRAX: Cannot be calculated. Pharmacologic treatment recommendations * No uniform recommendation applies to all patients. Management plans must be individualized. * Consider initiating pharmacologic treatment in postmenopausal women and men >= 50 years of age who have the following: Primary fracture prevention: * T-score <= - 2.5 at the femoral neck, total hip, lumbar spine, 33% radius (some uncertainty with existing data) by DXA. * Low bone mass (osteopenia: T-score between - 1.0 and - 2.5) at the femoral neck or total hip by DXA with a 10-year hip fracture risk >= 3% or a 10-year major osteoporosis-related fracture risk >= 20% (i.e., clinical vertebral, hip, forearm, or proximal humerus) based on the [place]-adapted FRAXregistered model. Secondary fracture prevention: * Fracture of the hip or vertebra regardless of BMD [4, 5]. * Fracture of proximal humerus, pelvis, or distal forearm in persons with low bone mass (osteopenia: T-score between - 1.0 and - 2.5). The decision to treat should be individualized in persons with a fracture of the proximal humerus, pelvis, or distal forearm who do not have osteopenia or low BMD [12, 13]. Arnulfo MS, Aye SL, Daryl KL, Guillermina EM, Xin KG, AJ, Sissy ES. The clinician's guide to prevention and treatment of osteoporosis. Osteoporos Int. 2021;33(10):4646-3806. doi: 10.1007/x92907-241-04291-y. Epub 2021Jun 17. Erratum in: Osteoporos Int. 2021Sep 16;: PMID: 69781797; PMCID: [id number]. Electronically authenticated by: JEROME AYALA Date: 04/04/2024 08:01
== END 2024-04-03 09:22 | disposition home or self-care (01) ==
LOC: RAD 09:21
PROVIDERS: PCP Nurse Practitioner; Visit Provider Nurse Practitioner
DX: M85.80 Other specified disorders of bone density and structure, unspecified site (principal); Z78.0 Asymptomatic menopausal state
CPT/HCPCS: 77080

== ENCOUNTER 2024-04-12 18:27 | Emergency (ER) | payer MEDICARE, MEDICAID, SELFPAY ==
[2024-04-12 18:29] VITALS: BP 162/85; PULSE 90; TEMP 36.4; O2SAT 96
--- NOTE | 2024-04-12 18:33 | ED.GENADUL1 ---
HPI HPI - General Adult General Chief complaint: Extremity Injury, Upper Stated complaint: Right Hand Injury Time Seen by Provider: 04/12/24 18:32 Source: patient Mode of arrival: walk-in History of Present Illness HPI narrative: Patient is a 68-year-old female who presents to the emergency department for an injury to the right hand that occurred 20 minutes prior to arrival. Patient hit her hand against a door frame. She complains of pain in the fingers of the right hand and dorsum of the hand. No medications taken prior to arrival. She had no other associated injuries. She is right-hand dominant. She drove herself to the emergency department. Related Data Home Medications ?Medication ?Instructions ?Recorded ?Confirmed aripiprazole 2 mg tablet 2 mg PO DAILY 04/12/24 04/12/24 buspirone 10 mg tablet 10 mg PO BID 04/12/24 04/12/24 levothyroxine 75 mcg tablet 75 mcg PO QAM 04/12/24 04/12/24 losartan 25 mg tablet 25 mg PO DAILY 04/12/24 04/12/24 montelukast 10 mg tablet 10 mg PO QPM 04/12/24 04/12/24 sertraline 100 mg tablet 100 mg PO BID 04/12/24 04/12/24 simvastatin 20 mg tablet 20 mg PO QPM 04/12/24 04/12/24 trazodone 50 mg tablet 100 mg PO QPM 04/12/24 04/12/24 Previous Rx's ?Medication ?Instructions ?Recorded naproxen 500 mg tablet 500 mg PO BID PRN pain #10 tabs 04/12/24 Allergies Allergy/AdvReac Type Severity Reaction Status Date / Time codeine Allergy Severe Rash Verified 09/04/23 07:54 Opioid HPI Opioid Management Most Recent Opioid Data: Last Pain Scale 5 08/31/23 13:44 08/31/23 Review of Systems ROS Constitutional Denies: fever or chills Ears, nose, mouth, and throat Denies: throat pain or nasal congestion Cardiovascular Denies: chest pain Respiratory Denies: shortness of breath or cough Gastrointestinal Denies: nausea or vomiting Musculoskeletal Reports: extremity pain and extremity swelling; Denies: back pain or neck pain Integumentary/Breast Denies: rash Neurological Denies: numbness in extremities or weakness in extremities Hematologic/Lymphatic Denies: easy bruising or easy bleeding PFSH PFSH Social History Little interest or pleasure in doing things: not at all Feeling down, depressed, or hopeless: not at all Exam Narrative Exam Narrative: Gen.: Awake, alert, in no distress Head: Normocephalic, atraumatic ENT: Moist mucous membranes Respiratory: No respiratory distress Extremities: Moves extremities equally, diffuse tenderness of the fingers of the right hand and right third MCP joint, minimal edema and ecchymosis noted over the third MCP joint. No other obvious deformity or appreciable trauma. 2+ right radial pulse Psych: Normal mood and affect Neuro: No focal neuro deficit Skin: Warm, dry, intact Constitutional Vital Signs, click to edit/add: Last Vital Signs Temp 97.6 F 04/12/24 18:29 Pulse 90 04/12/24 18:29 Resp 16 04/12/24 18:29 BP 162/85 H 04/12/24 18:29 Pulse Ox 96 04/12/24 18:29 O2 Del Method Room Air 04/12/24 18:29 Course Vital Signs Vital signs: Vital Signs Temperature 97.6 F 04/12/24 18:29 Pulse Rate 90 04/12/24 18:29 Respiratory Rate 16 04/12/24 18:29 Blood Pressure 162/85 H 04/12/24 18:29 Pulse Oximetry 96 04/12/24 18:29 Oxygen Delivery Method Room Air 04/12/24 18:29 Temperature 97.6 F 04/12/24 18:29 Pulse Rate 90 04/12/24 18:29 Respiratory Rate 16 04/12/24 18:29 Blood Pressure 162/85 H 04/12/24 18:29 Pulse Oximetry 96 04/12/24 18:29 Oxygen Delivery Method Room Air 04/12/24 18:29 Medical Decision Making MDM Narrative Medical decision making narrative: X-rays of the hand with no evidence of acute process. Patient treated with Tylenol in the ER as she drove herself here. She is placed in an Michael bandage and remains neurovascularly intact at discharge. Follow-up with PCP and return to the ER if symptoms change or worsen SUPERVISED APC VISIT, PHYSICIAN ATTESTATION: Based on the medical record the care appears appropriate. ? Medical Records Medical records reviewed: Yes I reviewed the patient's medical records Imaging Data XR hand: Attestation: I have reviewed the pertinent imaging results. Discharge Plan Discharge Chief Complaint: Extremity Injury, Upper Clinical Impression: Contusion of right hand Patient Disposition: Home, Self-Care Time of Disposition Decision: 19:56 Condition: Good Prescriptions / Home Meds: New naproxen 500 mg tablet 500 mg PO BID PRN (Reason: pain) Qty: 10 0RF No Action aripiprazole 2 mg tablet 2 mg PO DAILY buspirone 10 mg tablet 10 mg PO BID levothyroxine 75 mcg tablet 75 mcg PO QAM losartan 25 mg tablet 25 mg PO DAILY montelukast 10 mg tablet 10 mg PO QPM sertraline 100 mg tablet 100 mg PO BID simvastatin 20 mg tablet 20 mg PO QPM trazodone 50 mg tablet 100 mg PO QPM Print Language: Macedonian Instructions: Contusion in Adults (ED) Referrals: Jessica Sosa NP [Primary Care Provider] - 1 week
--- OUTSIDE RECORDS SUMMARY | 2024-04-12 18:35 | XMS_ITS | CCD ---
Demographics Address [address] [place] [address] Home Phone Mobile Phone Preferred Language en Marital Status Unknown Islam Affiliation Unknown Race White Ethnic Group Not or Lati no Author Organization [facility] Care Team Providers Care Acute Care Occupational Therapist Name Role Phone Conrado Mccoy Unavailable Unavail [...] HANI Attending Unavailable ZAHIDA BARKER Referring Unavailable MANIZ, JESSICA Primary Care Unavailable MD NIDHI MICHAELS [...] Unavailable AICHHOLZ, RODNEY JESSICA Admitting Unavailable AICHHOLZ, SPRAYER HAND JESSICA Attending Unavailable AICHHOLZ, SPRAYER HAND JESSICA Consulting Unavailable AICHHOLZ, SPRAYER HAND JESSICA Primary Care Unavailable AICHHOLZ, SPRAYER HAND JESSICA Admitting Unavailable DR JACKELIN TAMAYO V Consulting Unavailable AICHHOLZ, SPRAYER HAND JESSICA Attending Unavailable AICHHOLZ, SPRAYER HAND JESSICA Primary Care Unavailable AICCARLOS, SPRAYER HAND JESSICA Consulting Unavailable JACKELIN BATRES Consulting Unavailable AICHHOLZ, SPRAYER HAND JESSICA Admitting Unavailable AICHHOLZ, SPRAYER HAND JESSICA Attending Unavailable AICHHOLZ, SPRAYER HAND JESSICA Consulting Unavailable AICHHOLZ, SPRAYER HAND JESSICA Primary Care Unavailable DR JEROME AYALA Consulting Unavailable AICHHOLZ, SPRAYER HAND JESSICA Admitting Unavailable AICHHOLZ, SPRAYER HAND JESSICA Attending Unavailable AICHHOLZ, SPRAYER HAND JESSICA Consulting Unavailable AICHHOLZ, SPRAYER HAND JESSICA Primary Care Unavailable JOSE DE JESUS PEREZ Consulting Unavailable AICHHOLZ, SPRAYER HAND JESSICA Primary Care Unavailable AICHHOLZ, SPRAYER HAND JESSICA Attending Unavailable AICHHOLZ, SPRAYER HAND JESSICA Admitting Unavailable AICHHOLZ, SPRAYER HAND JESSICA Consulting Unavailable AICHHOLZ, SPRAYER HAND JESSICA Admitting Unavailable AICHHOLZ, SPRAYER HAND JESSICA Attending Unavailable AICHHOLZ, SPRAYER HAND JESSICA Primary Care Unavailable AICHHOLZ, SPRAYER HAND JESSICA Admitting Unavailable AICHHOLZ, SPRAYER HAND JESSICA Attending Unavailable AICHHOLZ, SPRAYER HAND JESSICA Consulting Unavailable AICHHOLZ, SPRAYER HAND JESSICA Primary Care Unavailable DR JEROME AYALA Consulting Unavailable LINDA MASON Attending Unavailable Pop Carreon MD Primary Care Provider [phone] Aichholz SECURITY REPRESENTATIVE, Jessica Unavailable Meghana Canseco DO Unavailable AICHHOLZ, JESSICA Attending Unavailable AICHHOLZ, JESSICA Attending Unavailable AICHHOLZ, JESSICA Attending Unavailable AICHHOLZ, JESSICA Attending Unavailable AICHHOLZ, JESSICA Attending Unavailable Allergies Allergy Classification Reported Allergen(s) Allergy Type Date of Onset Reaction(s) Facility (5 sources) acetaminophen / HYDROcodone; Translations: [Vicodin] Drug Allergy 3 Eruption of skin (disorder) [facility] Repository (1 source) acetaminophen / oxyCODONE; Translations: [Percocet 5/325] Drug Allergy AOF [facility] Repository (19 sources) codeine; Translations: [codeine] Drug Allergy 0 Eruption of skin (disorder), Weal (disorder), Rash [facility] Repository (2 sources) Acetaminophen / oxyCODONE Drug Allergy 0 [facility] Repository (3 sources) Acetaminophen; Translations: [acetaminophen] Drug Allergy Weal (disorder) [facility] (3 sources) Acetaminophen / oxyCODONE; Translations: [acetaminophen-oxyco done] Drug Allergy Cutaneous eruption (morphologic abnormality) [facility] (3 sources) acetaminophen / propoxyphene; Translations: [acetaminophen-propo xyphene] Drug Allergy Eruption of skin (disorder) [facility] (3 sources) Cortisone; Translations: [cortisone] Drug Allergy 6 Unknown [facility] (13 sources) oxyCODONE; Translations: [oxycodone] Drug Allergy 3 Weal (disorder), Rash [facility] (1 source) Cortisone Drug Allergy 6 [facility] Repository (1 source) Penicillins Drug allergy (disorder) 3 [facility] Repository (1 source) Darvocet-N 100 Drug allergy (disorder) 0 [facility] Repository (1 source) Codeine; Translations: [codeine sulfate] Drug Allergy [facility] Repository (10 sources) Acetaminophen / HYDROcodone Drug Allergy 3 [facility] (10 sources) Acetaminophen / oxyCODONE Drug Allergy 7 Rash [facility] (10 sources) HYDROcodone Drug Allergy 3 Rash [facility] (10 sources) Sulfamethoxazole / Trimethoprim Drug Allergy 3 Hives [facility] Medications Current Medications Medication Drug Class(es) Dates Sig (Normalized) Sig (Original) alendronic acid 70 mg oral tablet (14 sources) Bisphosphonate Start: 07-18-2023 End: 01-16-2024 take [...] Refills(s) 0 Start Date: 11/06/18 Status: Ordered ARIPiprazole 2 mg oral tablet (14 sources) Atypical Antipsychotic Start: 07-18-2023 End: 06-23-2024 take 1 tablet by mouth once daily ARIPiprazole (Abilify) 2 MG tablet Indications: Anxiety and depression (CMS/HCC) Take 1 tablet (2 mg) by mouth Daily 90 tablet 1 03/25/2024 06/23/2024 Active busPIRone hydrochloride 10 mg oral tablet (16 sources) Start: 07-18-2023 End: 06-23-2024 take 1 tablet by mouth once busPIRone (Buspar) 10 MG tablet Indications: Anxiety and depression (CMS/HCC) Take 1 tablet (10 mg) by mouth every 12 (twelve) hours 180 tablet 1 03/25/2024 06/23/2024 Active Start: 11-03-2021 busPIRone 7.5 mg oral tablet Refills(s) 0 Start Date: 11/03/21 Status: Ordered cetirizine hydrochloride 10 mg oral tablet (14 sources) Histamine-1 Receptor Antagonist Start: 07-18-2023 End: 06-23-2024 take 1 tablet by mouth once daily cetirizine (ZyrTEC) 10 MG tablet Indications: Allergic rhinitis, unspecified seasonality, unspecified trigger Take 1 tablet (10 mg) by mouth Daily 90 tablet 1 03/25/2024 06/23/2024 Active cholecalciferol 0.125 mg oral capsule (7 sources) Vitamin D Start: 07-18-2023 End: 01-16-2024 take 1 capsule by mouth once daily cholecalciferol (Vitamin D-3) 125 MCG (5000 UT) capsule Indications: Vitamin D deficiency Take 1 capsule (125 mcg) by mouth Daily 90 capsule 1 10/18/2023 01/16/2024 Active levothyroxine sodium 0.075 mg oral tablet (16 sources) l-Thyroxine Start: 07-18-2023 End: 06-23-2024 take 1 tablet by mouth before mealtime levothyroxine (Synthroid, Levoxyl) 75 MCG tablet Indications: Hypothyroidism, unspecified type (CMS/HCC) Take 1 tablet (75 mcg) by mouth in the morning. Take before meals. 90 tablet 1 03/25/2024 06/23/2024 Active Start: 11-06-2018 take 1 tablet by sarah th once daily levothyroxine 50 mcg (0.05 mg) Tab 50 microgram = 1 tab(s), Oral, Daily, Refills(s) 0 Start Date: 11/06/18 Status: Ordered losartan potassium 25 mg oral tablet (3 sources) Angiotensin 2 Receptor Neena Start: 03-25-2024 [...] split. 90 tablet 1 10/18/2023 01/16/2024 Active montelukast 10 mg oral tablet (16 sources) Leukotriene Receptor Antagonist Start: 07-18-2023 End: 06-23-2024 take 1 tablet by mouth at bedtime montelukast (Singulair) 10 MG tablet Indications: Allergic rhinitis, unspecified seasonality, unspecified trigger Take 1 tablet (10 mg) by mouth at bedtime 90 tablet 1 03/25/2024 06/23/2024 Active Start: 11-06-2018 take 1 tablet by sarah th once daily Singulair 10 mg Tab 10 mg = 1 tab(s), Oral, Daily, Refills(s) 0 Start Date: 11/06/18 Status: Ordered sertraline 100 mg oral tablet (16 sources) Serotonin Reuptake Inhibitor Start: 07-18-2023 End: 06-23-2024 take 1 tablet by mouth in the morning sertraline (Zoloft) 100 MG tablet Indications: Generalized Anxiety Disorder , Major Depressive Disorder Take 1 tablet (100 mg) by mouth in the morning and 1 tablet (100 mg) before bedtime. 180 tablet 1 03/25/2024 06/23/2024 Active Start: 11-06-2018 take 1 tablet by sarah th once daily Zoloft 100 mg Tab 100 mg = 1 tab(s), Oral, Daily, Refills(s) 0 Start Date: 11/06/18 Status: Ordered simvastatin 20 mg oral tablet (16 sources) HMG-CoA Reductase Inhibitor Start: 07-18-2023 End: 06-23-2024 take 1 tablet by mouth at bedtime simvastatin (Zocor) 20 MG tablet Indications: Mixed hyperlipidemia (CMS/HCC) Take 1 tablet (20 mg) by mouth at bedtime 90 tablet 1 03/25/2024 06/23/2024 Active Start: 11-06-2018 take 1 tablet by [...] BID, # 60 tab(s), Refills(s) 11, Pharmacy: [facility]/pharmacy #[id number], 165.1, cm, 03/31/20 9:27:00 EST, Height/Length Dosing, 92.8, kg, 03/31/20 9:27:00 EST, Weight Dosing Start Date: 11/03/21 Status: Ordered traZODone hydrochloride 50 mg oral tablet (14 sources) Serotonin Reuptake Inhibitor Start: 07-18-2023 End: 06-23-2024 take 2 tablets by mouth at bedtime traZODone (Desyrel) 50 MG tablet Indications: Anxiety and depression (CMS/HCC) Take 2 tablets (100 mg) by mouth at bedtime 180 tablet 1 03/25/2024 06/23/2024 Active Vitamin D (2 sources) Start: 11-06-2018 Vitamin D Oral, Daily, Refills(s) 0 Start Date: 11/06/18 Status: Ordered Problems Active Problems Problem Classification Problem Date Documented Da te Episodic/Chronic Acquired foot deformities (10 sources) Acquired hallux valgus; Translations: [Hallux valgus (acquired), unspecified foot] Onset: 01-27-2023 01-27-2023 Chronic Anxiety disorders (16 sources) Mixed anxiety and depressive disorder; Translations: [Anxiety disorder, unspecified] Onset: 04-13-2023 04-13-2023 Chronic Disorders of lipid metabolism (20 sources) Hypercholesterolemia ; Translations: [Hyperlipidemia, unspecified] Onset: 08-09-2021 Resolved: 12-20-2023 05-17-2013 Chronic Diverticulosis and diverticulitis (10 sources) Diverticular disease; Translations: [Diverticulosis of intestine, part unspecified, without perforation or abscess without bleeding] Onset: 04-13-2023 04-13-2023 Chronic Essential hypertension (14 sources) Hypertensive disorder; Translations: [Essential (primary) hypertension] Onset: 04-13-2023 08-08-2013 Chronic Comment on above: on no meds at presen t Genitourinary symptoms and ill-defined conditions (19 sources) Mixed incontinence; Translations: [Female stress incontinence] Onset: 11-03-2021 Chronic Immunizations and screening for infectious disease (5 sources) Needs influenza immunization; Translations: [Encounter for immunization] Onset: 03-25-2024 03-25-2024 Episodic Mood disorders (10 sources) Recurrent major depressive episodes, mild ; Translations: [Major depressive disorder, recurrent, mild] Onset: 01-31-2023 01-31-2023 Chronic Nutritional deficiencies (15 sources) Vitamin D deficiency, unspecified; Translations: [Vitamin D deficiency] Onset: 06-03-2022 04-13-2023 Chronic Other acquired deformities (10 sources) Contracture of joint of right ankle; [...] Onset: 11-03-2021 Episodic Other nervous system disorders (10 sources) Bilateral carpal tunnel syndrome; Translations: [Carpal tunnel syndrome, bilateral upper limbs] Onset: 01-27-2023 01-27-2023 Chronic Other nervous system disorders (10 sources) Ulnar neuropathy of right arm; Translations: [Lesion of ulnar nerve, right upper limb] Onset: 01-27-2023 01-27-2023 Chronic Other upper respiratory disease (2 sources) Seasonal allergic rhinitis 10-04-2013 Chronic Other upper respiratory disease (14 sources) Allergic rhinitis; Translations: [Allergic rhinitis, unspecified] Onset: 04-13-2023 04-13-2023 Chronic Other upper respiratory disease (10 sources) Seasonal allergy; Translations: [Other seasonal allergic rhinitis] Onset: 04-13-2023 04-13-2023 Chronic Residual codes; unclassified (16 sources) Obstructive sleep apnea syndrome; Translations: [Obstructive sleep apnea (adult) (pediatric)] Onset: 04-13-2023 08-22-2023 Chronic Spondylosis; intervertebral disc disorders; other back problems (20 sources) Other cervical disc degeneration, unspecified cervical region; Translations: [Other intervertebral disc degeneration, thoracic region] Onset: 06-03-2022 01-27-2023 Chronic Thyroid disorders (17 sources) Hypothyroidism, unspecified; Translations: [Hypothyroidism] Onset: 06-03-2022 [...] Date Documented Da te Episodic/Chronic Abdominal pain (10 sources) Abdominal pain; Translations: [Unspecified abdominal pain] Onset: 04-13-2023 Resolved: 04-13-2023 04-13-2023 Episodic Chronic obstructive pulmonary disease and bronchiectasis (14 sources) Bronchitis, not specified as acute or chronic; Translations: [Bronchitis] Onset: 05-09-2022 Resolved: 04-13-2023 Episodic Fracture of upper limb (10 sources) Fracture at wrist and/or hand level; Translations: [Fracture of unspecified carpal bone, unspecified wrist, initial encounter for closed fracture] Onset: 04-13-2023 Resolved: 04-13-2023 04-13-2023 Episodic Genitourinary symptoms and ill-defined conditions (16 sources) Nocturia; Translations: [Poor stream of urine] Onset: 04-13-2023 02-27-2020 Episodic Mood disorders (6 sources) Mood disorders Onset: 12-20-2023 12-20-2023 Mycoses (10 sources) Candidiasis of skin; Translations: [Candidiasis of skin and nail] Onset: 04-13-2023 04-13-2023 Episodic Nonspecific chest pain (10 sources) Chest pain; Translations: [Chest pain, unspecified] Onset: 04-13-2023 Resolved: 04-13-2023 04-13-2023 Episodic Other bone disease and musculoskeletal deformities (1 source) Other specified disorders of bone density and structure, unspecified site; Translations: [OTH D/O BONE DEN STRUCT UNS SITE] Onset: 06-25-2021 Episodic Other bone disease and musculoskeletal deformities (16 sources) Osteopenia; Translations: [Other specified disorders of bone density and structure, unspecified site] Onset: 04-13-2023 04-13-2023 Episodic Other connective tissue disease (10 sources) Dupuytren's contracture; Translations: [Palmar fascial fibromatosis [Dupuytren]] Onset: 01-27-2023 01-27-2023 Episodic Other connective tissue disease (10 sources) Dupuytren's disease of palm; Translations: [Palmar fascial fibromatosis [Dupuytren]] Onset: 01-27-2023 01-27-2023 Episodic Other connective tissue disease (10 sources) Lateral epicondylitis; Translations: [Lateral epicondylitis, unspecified elbow] Onset: 04-13-2023 Resolved: 04-13-2023 04-13-2023 Episodic Other diseases of veins and lymphatics (10 sources) Peripheral venous insufficiency; Translations: [Venous insufficiency (chronic) (peripheral)] Onset: 01-27-2023 01-27-2023 Episodic Other lower respiratory disease (10 sources) Nodule of lung; Translations: [Solitary pulmonary nodule] Onset: 04-13-2023 04-13-2023 Episodic Other lower respiratory disease (10 sources) Dyspnea; Translations: [Dyspnea, unspecified] Onset: 04-13-2023 Resolved: 04-13-2023 04-13-2023 Episodic Other non-traumatic joint disorders (4 sources) Pain in right hip; Translations: [PAIN IN RIGHT HIP] Onset: 12-08-2021 Episodic Other nutritional; endocrine; and metabolic disorders (14 sources) Body mass index 30+ - obesity; Translations: [Obesity, unspecified] Onset: 01-31-2023 Resolved: 12-20-2023 01-31-2023 Chronic Other nutritional; endocrine; and metabolic disorders (10 sources) Obesity caused by energy imbalance; Translations: [Class 1 obesity due to excess calories without serious comorbidity in adult] Onset: 01-31-2023 Resolved: 12-20-2023 01-31-2023 Chronic Other nutritional; endocrine; and metabolic disorders (10 sources) Body mass index 25-29 - overweight; Translations: [Overweight] Onset: 12-20-2023 12-20-2023 Episodic Other screening for suspected conditions (not mental disorders or infectious disease) (16 sources) Encounter for screening mammogram for malignant neoplasm of breast; Translations: [Patient encounter status] Onset: 06-24-2021 Episodic Poisoning by nonmedicinal substances (10 sources) Insect sting; Translations: [Toxic effect of [...] Onset: 04-13-2023 04-13-2023 Episodic Residual codes; unclassified (10 sources) Insomnia; Translations: [Insomnia, unspecified] Onset: 04-13-2023 04-13-2023 Episodic Residual codes; unclassified (8 sources) Postmenopausal state; Translations: [Asymptomatic menopausal state] Onset: 04-13-2023 12-20-2023 Episodic Spondylosis; intervertebral disc disorders; other back problems (20 sources) Pain in thoracic spine; Translations: [Spinal stenosis of lumbar region] Onset: 05-25-2022 Resolved: 04-13-2023 Episodic Unclassified (1 source) CONTACT W/AND (SUSP) EXPOS COVID-19; Translations: [CONTACT W/AND (SUSP) EXPOS COVID-19] Onset: 05-02-2022 Results Test Name Value Interpretation Reference Range Facility [place] [address] XRay Report Signed Patient: CLAUDETTE ROSS MR#: [id number] : 1955 Acct:[id number] Age/Sex: 68 / F ADM Date: 04/03/24 Loc: [facility] Attending Dr: Jessica Sosa NP Ordering Physician: Jessica Sosa NP Date of Service: 04/03/24 Procedure(s): XR DEXA axial skeleton Accession Number(s): [id number] cc: Jessica Sosa NP [address] [address] Patient Name: CLAUDETTE ROSS MRN: [id number] date: 1955 Sex: F Assigned Patient Location: [facility] Current Patient Location: Accession/Order Number: [id number] Exam Date: 04/03/2024 09:28 Report Date: 04/04/2024 08:01 At the request of: JESSICA SOSA Procedure: XR DEXA axial skeleton EXAMINATION: XR DEXA axial skeleton HISTORY: Osteopenia COMPARISON: DEXA bone densitometry 06/24/2021 TECHNIQUE: Dual-energy X-ray absorptiometry (DXA) was performed. FINDINGS: SPINE ANALYSIS: Average bone mineral density is 1.254 g/cm2. T-score (standard deviation relative to young adult mean): 0.6 . -2.9% change since prior study. HIP ANALYSIS: Lowest bone mineral density is within the left femoral neck, 0.910 g/cm2. T-score (standard deviation relative to young adult mean): -0.9 . +6.8% change since prior study. XR/XR DEXA axial skeleton IMPRESSION: World Health Organization Classification: Normal - Low Fracture Risk FRAX: Cannot be calculated. Pharmacologic treatment recommendations * No uniform recommendation applies to all patients. Management plans must be individualized. * Consider initiating pharmacologic treatment in postmenopausal women and men >= 50 years of age who have the following: Primary fracture prevention: * T-score <= - 2.5 at the femoral neck, total hip, lumbar spine, 33% radius (some uncertainty with existing data) by DXA. * Low bone mass (osteopenia: T-score between - 1.0 and - 2.5) at the femoral neck or total hip by DXA with a 10-year hip fracture risk >= 3% or a 10-year major osteoporosis-related fracture risk >= 20% (i.e., clinical vertebral, hip, forearm, or proximal humerus) based on the [place]-adapted FRAXregistered model. Secondary fracture prevention: * Fracture of the hip or vertebra regardless of BMD [4, 5]. * Fracture of proximal humerus, pelvis, or distal forearm in persons with low bone mass (osteopenia: T-score between - 1.0 and - 2.5). The decision to treat should be individualized in persons with a fracture of the proximal humerus, pelvis, or distal forearm who do not have osteopenia or low BMD [12, 13]. Arnulfo MS, Aye SL, Daryl KL, Guillermina EM, Xin KG, AJ, Sissy ES. The clinician's guide to prevention and treatment of osteoporosis. Osteoporos Int. 2021;33(10):8645-5763. doi: 10.1007/k31432-848-15233-r. Epub 2021Jun 17. Erratum in: Osteoporos Int. 2021Sep 16;: PMID: 06599848; PMCID: [id number]. Electronically authenticated by: JEROME AYALA Date: 04/04/2024 08:01 Dictated By: Jerome Ayala M.D. Signed By: 04/04/24803 DD/ 0 TD/TT: Oyster Grader: [facility] Radiology, Radiologiris leung MD - 04/04/[address] [address] XRay Report Signed Patient: CLAUDETTE ROSS MR#: [id number] : 1955 Acct:[id number] Age/Sex: 68 / F ADM Date: 04/03/24 Loc: [facility] Attending Dr: Jessica Sosa NP Ordering Physician: Jessica Sosa NP Date of Service: 04/03/24 Procedure(s): XR DEXA axial skeleton Accession Number(s): [id number] cc: Jessica Sosa NP [address] [address] Patient Name: CLAUDETTE ROSS MRN: [facility]:[id number] date: 1955 Sex: F Assigned Patient Location: [facility] Current Patient Location: Accession/Order Number: [id number] Exam Date: 04/03/2024 09:28 Report Date: 04/04/2024 08:01 At the request of: JESSICA SOSA Procedure: XR DEXA axial skeleton EXAMINATION: XR DEXA axial skeleton HISTORY: Osteopenia COMPARISON: DEXA bone densitometry 06/24/2021 TECHNIQUE: Dual-energy X-ray absorptiometry (DXA) was performed. FINDINGS: SPINE ANALYSIS: Average bone mineral density is 1.254 g/cm2. T-score (standard deviation relative to young adult mean): 0.6 . -2.9% change since prior study. HIP ANALYSIS: Lowest bone mineral density is within the left femoral neck, 0.910 g/cm2. T-score (standard deviation relative to young adult mean): -0.9 . +6.8% change since prior study. XR/XR DEXA axial skeleton IMPRESSION: World Health Organization Classification: Normal - Low Fracture Risk FRAX: Cannot be calculated. Pharmacologic treatment recommendations * No uniform recommendation applies to all patients. Management plans must be individualized. * Consider initiating pharmacologic treatment in postmenopausal women and men >= 50 years of age who have the following: Primary fracture prevention: * T-score <= - 2.5 at the femoral neck, total hip, lumbar spine, 33% radius (some uncertainty with existing data) by DXA. * Low bone mass (osteopenia: T-score between - 1.0 and - 2.5) at the femoral neck or total hip by DXA with a 10-year hip fracture risk >= 3% or a 10-year major osteoporosis-related fracture risk >= 20% (i.e., clinical vertebral, hip, forearm, or proximal humerus) based on the [place]-adapted FRAXregistered model. Secondary fracture prevention: * Fracture of the hip or vertebra regardless of BMD [4, 5]. * Fracture of proximal humerus, pelvis, or distal forearm in persons with low bone mass (osteopenia: T-score between - 1.0 and - 2.5). The decision to treat should be individualized in persons with a fracture of the proximal humerus, pelvis, or distal forearm who do not have osteopenia or low BMD [12, 13]. Arnulfo MS, Aye SL, Daryl KL, Guillermina EM, Xin KG, AJ, Sissy ES. The clinician's guide to prevention and treatment of osteoporosis. Osteoporos Int. 2021;33(10):0350-7440. doi: 10.1007/j47592-087-21590-h. Epub 2021Jun 17. Erratum in: Osteoporos Int. 2021Sep 16;: PMID: 18894109; PMCID: [id number]. Electronically authenticated by: JEROME AYALA Date: 04/04/2024 08:01 Dictated By: Jerome Ayala M.D. Signed By: 04/04/24803 DD/ 08 TD/TT: Oyster Grader: [facility] [employer] Radiology Study observation (narrative) [facility] [employer] XR DEXA AXIAL SKELETONOrdere d By: Radiologist Radiology on 04-04-2024 [facility] [employer] Work Phone: CBC AUTO DIFFon 05-25-2022 BASO # 0.0 103/ul Normal 0.0-0.1 [facility] Comment on above: Performed By: #### C BC #### [facility] [address] [place] [address] Dr. Dedrick Kinsey Basophils/100 WBC (Bld) 0.5 % Normal 0.2-2.0 [facility] Comment on above: Performed By: #### C BC #### [facility] [address] [place] [address] Dr. Dedrick Kinsey EO # 0.1 103/ul Normal 0.0-0.7 [facility] Comment on above: Performed By: #### C BC #### [facility] [address] [place] [address] Dr. Dedrick Kinsey Eosinophils/100 WBC (Bld) 2.5 % Normal 0.9-7.0 [facility] Comment on above: Performed By: #### C BC #### [facility] [address] [place] [address] Dr. Dedrick Kinsey Erythrocyte distribution width (RBC) [Ratio] 13.2 % Normal 11.0-15.0 [facility] Comment on above: Performed By: #### C BC #### [facility] [address] [place] [address] Dr. Dedrick Kinsey Hematocrit (Bld) [Volume fraction] 37.5 % Normal 36.0-48.0 [facility] Comment on above: Performed By: #### C BC #### [facility] [address] [place] [address] Dr. Dedrick Kinsey Hemoglobin (Bld) [Mass/Vol] 12.6 g/dL Normal 12.0-16.0 [facility] Comment on above: Performed By: #### C BC #### [facility] [address] [place] [address] Dr. Dedrick Kinsey IG # 0.01 10e3/ul Normal 0.00-0.03 [facility] Comment on above: Performed By: #### C BC #### [facility] [address] [place] [address] Dr. Dedrick Kinsey IG % 0.2 % Normal 0.0-0.5 [facility] Comment on above: Performed By: #### C BC #### [facility] [address] [place] [address] Dr. Dedrick Kinsey LYMPH # 1.5 103/ul Normal 1.2-3.8 [facility] Comment on above: Performed By: #### C BC #### [facility] [address] [place] [address] Dr. Dedrick Kinsey Lymphocytes/100 WBC (Bld) 34.0 % Normal 20.5-60.0 [facility] Comment on above: Performed By: #### C BC #### [facility] [address] [place] [address] Dr. Dedrick Kinsey MANUAL DIFF REQ NO Normal [facility] Comment on above: Performed By: #### C BC #### [facility] [address] [place] [address] Dr. Dedrick Kinsey MCH (RBC) [Entitic mass] 29.9 pg Normal 26.7-34.0 [facility] Comment on above: Performed By: #### C BC #### [facility] [address] [place] [address] Dr. Dedrick Kinsey MCHC (RBC) [Mass/Vol] 33.6 g/dL Normal 29.9-35.2 [facility] Comment on above: Performed By: #### C BC #### [facility] [address] [place] [address] Dr. Dedrick Kinsey MCV (RBC) [Entitic vol] 89.1 fL Normal 81.0-99.0 [facility] Comment on above: Performed By: #### C BC #### [facility] [address] [place] [address] Dr. Dedrick Kinsey MONO # 0.4 103/ul Normal 0.3-0.8 [facility] Comment on above: Performed By: #### C BC #### [facility] [address] [place] [address] Dr. Dedrick Kinsey Monocytes/100 WBC (Bld) 9.0 % Normal 1.7-12.0 [facility] Comment on above: Performed By: #### C BC #### [facility] [address] [place] [address] Dr. Dedrick Kinsey NEUT # 2.3 103/ul Normal 1.4-6.5 [facility] Comment on above: Performed By: #### C BC #### [facility] [address] [place] [address] Dr. Dedrick Kinsey Neutrophils/100 WBC (Bld) 53.8 % Normal 43.0-75.0 [facility] Comment on above: Performed By: #### C BC #### [facility] [address] [address] [address] Dedrick Kinsey Platelet mean volume (Bld) [Entitic vol] 9.2 fL Critically low 9.5-13.5 [facility] Comment on above: Performed By: #### C BC #### [facility] [address] [place] [address] Dr. Dedrick Kinsey PLT 188 103/ul Normal 150-450 [facility] Comment on above: Performed By: #### C BC #### [facility] [address] [place] [address] Dr. Dedrick Kinsey RBC 4.21 106/ul Normal 4.20-5.40 [facility] Comment on above: Performed By: #### C BC #### [facility] [address] [place] [address] Dr. Dedrick Kinsey WBC 4.4 103/ul Normal 4.0-11.0 [facility] Comment on above: Performed By: #### C BC #### [facility] [address] [address] [address] Dedrick Kinsey FREE T4on 05-25-2022 Free T4 [Mass/Vol] 0.79 ng/dL Normal 0.76-1.46 [facility] Comment on above: Performed By: #### V ITAD, FT4 ####[facility] [address] [address]Dr. Dedrick Kinsey LIPID PROFILEon 05-25-2022 CHOL-HDL RATIO NORM SEE BELOW Normal [facility] Comment on above: Result Comment: 3.3 - 4.4 LOW RISK 4.4 - 7.1 AVERAGE RISK 7.1 - 11.0 MODERATE RISK >11.0 HIGH RISK Performed By: #### T SH, CMP, LIPID ####[facility] [address] [id number]. Dedrick Kinsey Cholesterol [Mass/Vol] 175 mg/dL Normal <=200 [facility] Comment on above: Performed By: #### T SH, CMP, LIPID ####[facility] [address] [id number]. Dedrick Kinsey Cholesterol in HDL [Mass/Vol] 39 mg/dL Critically low 40-60 [facility] Comment on above: Performed By: #### T SH, CMP, LIPID ####[facility] [address] [id number]. Dedrick Kinsey Cholesterol in LDL [Mass/Vol] 113.6 mg/dL Normal [facility] Comment on above: Performed By: #### T SH, CMP, LIPID ####[facility] [address] [address]Dr. Dedrick Kinsey Cholesterol.total/Cho lesterol in HDL [Mass ratio] 4.5 {ratio} Normal [facility] Comment on above: Performed By: #### T SH, CMP, LIPID ####[facility] [address] [address]Dr. Dedrick Kinsey HDL NORMAL > or = 60 mg/dl - LO W CARDIOVASCULAR RISK <40 mg/dl - HIGH CARDIOVASCULAR RISK Normal [facility] Comment on above: Performed By: #### T SH, CMP, LIPID ####[facility] [address] [id number]. Dedrick Kinsey LDL CALC NORMAL SEE BELOW Normal [facility] Comment on above: Result Comment: <100 mg/dl OPTIMAL 100 - 129 mg/dl NEAR OR ABOVE OPTIMAL 130 - 159 mg/dl BORDERLINE HIGH 160 - 189 mg/dl HIGH >190 mg/dl VERY HIGH Performed By: #### T SH, CMP, LIPID ####[facility] [address] [id number]. Dedrick Kinsey Triglyceride [Mass/Vol] 112 mg/dL Normal <=150 [facility] Comment on above: Performed By: #### T SH, CMP, LIPID ####[facility] [address] [address]Dr. Dedrick Kinsey VLDL CALC 22.4 mg/dL Normal [facility] Comment on above: Performed By: #### T SH, CMP, LIPID ####[facility] [address] [address]Dr. Dedrick Kinsey PROF 14(COMP METB)on 023 Albumin [Mass/Vol] 3.5 g/dL Normal 3.4-5.0 [facility] Comment on above: Performed By: #### T SH, CMP, LIPID ####[facility] [address] [address]Dr. Dedrick Kinsey Albumin/Globulin [Mass ratio] 1.0 {ratio} Normal [facility] Comment on above: Performed By: #### T SH, CMP, LIPID ####[facility] [address] [address]Dr. Dedrick Kinsey ALP [Catalytic activity/Vol] 84 U/L Normal 46-116 [facility] Comment on above: Performed By: #### T SH, CMP, LIPID ####[facility] [address] [address]Dr. Dedrick Kinsey ALT [Catalytic activity/Vol] 37 U/L Normal 14-59 [facility] Comment on above: Performed By: #### T SH, CMP, LIPID ####[facility] [address] [address]Dr. Dedrick Kinsey Anion gap [Moles/Vol] 11.7 mmol/L Normal [facility] Comment on above: Performed By: #### T SH, CMP, LIPID ####[facility] [address] [address]Dr. Dedrick Kinsey AST [Catalytic activity/Vol] 20 U/L Normal 15-37 [facility] Comment on above: Performed By: #### T SH, CMP, LIPID ####[facility] [address] [address]Dr. Dedrick Kinsey Bilirubin [Mass/Vol] 0.8 mg/dL Normal 0.2-1.0 [facility] Comment on above: Performed By: #### T SH, CMP, LIPID ####[facility] [address] [id number]. Dedrick Kinsey Calcium [Mass/Vol] 9.4 mg/dL Normal 8.5-10.1 [facility] Comment on above: Performed By: #### T SH, CMP, LIPID ####[facility] [address] [address]Dr. Dedrick Kinsey Chloride [Moles/Vol] 106 mmol/L Normal 98-107 [facility] Comment on above: Performed By: #### T SH, CMP, LIPID ####[facility] [address] [address]Dr. Dedrick Kinsey CO2 [Moles/Vol] 28.4 mmol/L Normal 21.0-32.0 [facility] Comment on above: Performed By: #### T SH, CMP, LIPID ####[facility] [address] [address]Dr. Dedrick Kinsey Creatinine [Mass/Vol] 0.77 mg/dL Normal 0.55-1.02 [facility] Comment on above: Performed By: #### T SH, CMP, LIPID ####[facility] [address] [address]Dr. Dedrick Kinsey EGFR-AF NIUEAN >60 Normal >=60 [facility] Comment on above: Performed By: #### T SH, CMP, LIPID ####[facility] [address] [address]Dr. Dedrick Kinsey EGFR-NON AF NIUEAN >60 Normal >=60 [facility] Comment on above: Performed By: #### T SH, CMP, LIPID ####[facility] [address] [address]Dr. Dedrick Kinsey Globulin (S) [Mass/Vol] 3.6 g/dL Normal [facility] Comment on above: Performed By: #### T SH, CMP, LIPID ####[facility] [address] [address]Dr. Dedrick Kinsey Glucose [Mass/Vol] 106 mg/dL Normal 74-106 [facility] Comment on above: Performed By: #### T SH, CMP, LIPID ####[facility] [address] [address]Dr. Dedrick Kinsey Potassium [Moles/Vol] 4.1 mmol/L Normal 3.5-5.1 [facility] Comment on above: Performed By: #### T SH, CMP, LIPID ####[facility] [address] [address]Dr. Dedrick Kinsey Protein [Mass/Vol] 7.1 g/dL Normal 6.4-8.2 [facility] Comment on above: Performed By: #### T SH, CMP, LIPID ####[facility] [address] [place], [place] [address]Dr. Dedrick Kinsey Sodium [Moles/Vol] 142 mmol/L Normal 136-145 [facility] Comment on above: Performed By: #### T SH, CMP, LIPID ####[facility] [address] [place], [place] [address]Dr. Dedrick Kinsey Urea nitrogen [Mass/Vol] 10.0 mg/dL Normal 7.0-18.0 [facility] Comment on above: Performed By: #### T SH, CMP, LIPID ####[facility] [address] [place], [place] [address]Dr. Dedrick Kinsey Urea nitrogen/Creatinine [Mass ratio] 13.0 mg/mg Normal [facility] Comment on above: Performed By: #### T SH, CMP, LIPID ####[facility] [address] [address]Dr. Dedrick Kinsey TSHon 05-25-2022 TSH 2.611 uIU/mL Normal 0.358-3.74 0 [facility] Comment on above: Performed By: #### T SH, CMP, LIPID ####[facility] [address] [address]Dr. Dedrick Kinsey VITAMIN D 25 OHon 05-25-2022 VIT D 25-OH 31.7 ng/mL Normal [facility] Comment on above: Performed By: #### V ITAD, FT4 ####[facility] [address] [place], [place] [address]Cn. Dedrick Kinsey VIT D RANGES SEE BELOW Normal [facility] Comment on above: Result Comment: <20 ng/mL Vit D deficient 20 - <30 ng/mL Vit D insufficient 30 - 100 ng/mL Vit D sufficient >100 ng/mL Potential Toxicity Performed By: #### V ITAD, FT4 ####[facility] [address] [place], [place] [address]Mb. Dedrick Kinsey XR CSPINE 2_3 VIEWSon 2022 [...] JEROME AYALA Date: 2022-05-25 11:30 Normal [facility] XR TSPINE 3 VIEWSon 05-26-19 23 XR [...] by: JEROME AYALA Date: 2022-05-25 11:32 Normal [facility] XR CHEST 2 Von 05-09-2022 XR CHEST [...] JESUS PEREZ Date: 2022-05-09 12:45 Normal [facility] Covid-19 PCR (CVDTBH)on 04-20 SARS-CoV-2 (COVID-19) RNA JAYY+probe Ql (Unsp spec) Not detected Normal NOT DETECTED [facility] Comment on above: Result Comment: When diagnostic [...] for this test is supported by the [place] of Health and Human Service's declaration that [...] be used). Performed By: #### C VDTB ####[facility] [address] [place], [place] [address]FtChanda Kinsey Basic Metabolic Panelon 02-21 Anion gap [Moles/Vol] 11.2 mmol/L Normal 6.0-15.0 [facility] Comment on above: Order Comment: Reason for Exam HAV (hallux abducto valgus), right Performed By: #### C BC, BMP #### [facility] [address] Calcium [Mass/Vol] 9.2 mg/dL Normal 8.2-10.2 [facility] Comment on above: Order Comment: Reason for Exam HAV (hallux abducto valgus), right Result Comment: PERF ORMED BY: [place] [address] PATHOLOGIST GRIT BLASTER SHRUTHI KIRKPATRICK M.D. Performed By: #### C BC, BMP #### [facility] [address] Chloride [Moles/Vol] 102 mmol/L Normal 95-[address] [facility] Comment on above: Order Comment: Reason for Exam HAV (hallux abducto valgus), right Performed By: #### C BC, BMP #### [address] CO2 [Moles/Vol] 27.0 mmol/L Normal 22.0-30.0 [facility] Comment on above: Order Comment: Reason for Exam HAV (hallux abducto valgus), right Performed By: #### C BC, BMP #### [address] Creatinine [Mass/Vol] 0.80 mg/dL Normal 0.44-1.[address] [facility] Comment on above: Order Comment: Reason for Exam HAV (hallux abducto valgus), right Performed By: #### C BC, BMP #### [place] [address] [place] Estimated GFR ( Kate > 60 [facility] Comment on above: Order Comment: Reason for Exam HAV (hallux abducto valgus), right Result Comment: GFR estimated reference range: According to KDOQI guidelines, <60 ml/min/1.73m2 is sufficient to diagnose a patient with chronic kidney disease. Performed By: #### C BC, BMP #### [place] [address] [place] Estimated GFR (Non- Am > 60 [facility] Comment on above: Order Comment: Reason for Exam HAV (hallux abducto valgus), right Performed By: #### C BC, BMP #### [facility] [address] [id number] [facility] Glucose [Mass/Vol] 99 mg/dL Normal 70-100 [facility] Comment on above: Order Comment: Reason for Exam HAV (hallux abducto valgus), right Result Comment: [place] Glucose Reference Range is dependent on time and content of last meal. Glucose of more than 200 mg/dL in a nonstressed, ambulatory subject supports the diagnosis of Diabetes Mellitus. ADA recommended reference range Performed By: #### C BC, BMP #### [facility] [address] Potassium [Moles/Vol] 4.2 mmol/L Normal 3.5-5.[address] [facility] Comment on above: Order Comment: Reason for Exam HAV (hallux abducto valgus), right Performed By: #### C BC, BMP #### [facility] [address] Sodium [Moles/Vol] 136 mmol/L Normal 136-146 [facility] Comment on above: Order Comment: Reason for Exam HAV (hallux abducto valgus), right Performed By: #### C BC, BMP #### [address] Urea nitrogen [Mass/Vol] 10 mg/dL Normal 9-23 [facility] Comment on above: Order Comment: Reason for Exam HAV (hallux abducto valgus), right Performed By: #### C BC, BMP #### [facility] [address] [place] [address] [place] Basophils Auto (Bld) [#/Vol] Ordered By: Yordan Batres on 03-11-2022 Basophils (Bld) [#/Vol] 0.0 10*3/uL 0.0-0.2 [facility] Basophils/100 WBC Auto (Bld) Ordered By: Yordan Batres on 03-11-2022 Basophils/100 WBC (Bld) 0.4 % . [facility] Complete Blood Count Auto Di ffon 03-11-2022 Basophils (Bld) [#/Vol] 0.0 10*3/uL Normal 0.0-0.2 [facility] Comment on above: Order Comment: Reaso n for Exam HAV (hallux abducto valgus), right Result Comment: PERF ORMED BY: [place] [address] PATHOLOGIST GRIT BLASTER SHRUTHI KIRKPATRICK M.D. Performed By: #### C BC, BMP #### [address] Basophils/100 WBC (Bld) 0.4 % Normal . [facility] Comment on above: Order Comment: Reaso n for Exam HAV (hallux abducto valgus), right Performed By: #### C BC, BMP #### [address] Eosinophils (Bld) [#/Vol] 0.1 10*3/uL Normal 0.0-0.45 [facility] Comment on above: Order Comment: Reaso n for Exam HAV (hallux abducto valgus), right Performed By: #### C BC, BMP #### [place] [address] [place] Eosinophils/100 WBC (Bld) 1.4 % Normal . [facility] Comment on above: Order Comment: Reaso n for Exam HAV (hallux abducto valgus), right Performed By: #### C BC, BMP #### [address] Erythrocyte distribution width (RBC) [Ratio] 13.1 % Normal 11.9-15.3 [facility] Comment on above: Order Comment: Reaso n for Exam HAV (hallux abducto valgus), right Performed By: #### C BC, BMP #### [address] Hematocrit (Bld) [Volume fraction] 39.5 % Normal 34.0-46.4 [facility] Comment on above: Order Comment: Reaso n for Exam HAV (hallux abducto valgus), right Performed By: #### C BC, BMP #### [address] Hemoglobin (Bld) [Mass/Vol] 13.3 g/dL Normal 11.8-15.4 [facility] Comment on above: Order Comment: Reaso n for Exam HAV (hallux abducto valgus), right Performed By: #### C BC, BMP #### [address] Lymphocytes (Bld) [#/Vol] 1.6 10*3/uL Normal 1.00-4.8 [facility] Comment on above: Order Comment: Reaso n for Exam HAV (hallux abducto valgus), right Performed By: #### C BC, BMP #### [address] Lymphocytes/100 WBC (Bld) 22.0 % Normal . [facility] Comment on above: Order Comment: Reaso n for Exam HAV (hallux abducto valgus), right Performed By: #### C BC, BMP #### [address] MCH (RBC) [Entitic mass] 30.0 pg Normal 24.7-34.3 [facility] Comment on above: Order Comment: Reaso n for Exam HAV (hallux abducto valgus), right Performed By: #### C BC, BMP #### [address] MCV (RBC) [Entitic vol] 88.8 fL Normal 80-100 [facility] Comment on above: Order Comment: Reaso n for Exam HAV (hallux abducto valgus), right Performed By: #### C BC, BMP #### [address] Mean Corpuscular HGB Conc 33.7 g/dL Normal 32.0-35.0 [facility] Comment on above: Order Comment: Reaso n for Exam HAV (hallux abducto valgus), right Performed By: #### C BC, BMP #### [address] Monocytes (Bld) [#/Vol] 0.5 10*3/uL Normal 0.0-0.8 [facility] Comment on above: Order Comment: Reaso n for Exam HAV (hallux abducto valgus), right Performed By: #### C BC, BMP #### [facility] [address] [place] [address] [place] Monocytes/100 WBC (Bld) 7.0 % Normal . [facility] Comment on above: Order Comment: Reaso n for Exam HAV (hallux abducto valgus), right Performed By: #### C BC, BMP #### [address] Neutrophils (Bld) [#/Vol] 5.0 10*3/uL Normal 1.8-7.7 [facility] Comment on above: Order Comment: Reaso n for Exam HAV (hallux abducto valgus), right Performed By: #### C BC, BMP #### [address] Neutrophils/100 WBC (Bld) 69.2 % Normal . [facility] Comment on above: Order Comment: Reaso n for Exam HAV (hallux abducto valgus), right Performed By: #### C BC, BMP #### [facility] [address] [place] [address] NRBC% 0.2 /100{WBC} Normal 0-0.5 [facility] Comment on above: Order Comment: Reaso n for Exam HAV (hallux abducto valgus), right Performed By: #### C BC, BMP #### [facility] [address] [place] [address] Platelet mean volume (Bld) [Entitic vol] 7.6 fL Normal 6.3-10.7 [facility] Comment on above: Order Comment: Reaso n for Exam HAV (hallux abducto valgus), right Performed By: #### C BC, BMP #### [address] [place] [address] [place] Platelets (Bld) [#/Vol] 212 10*3/uL Normal 150-450 [facility] Comment on above: Order Comment: Reaso n for Exam HAV (hallux abducto valgus), right Performed By: #### C BC, BMP #### [facility] [address] [place] [address] [place] RBC (Bld) [#/Vol] 4.44 10*6/uL Normal 3.60-5.00 [facility] Comment on above: Order Comment: Reaso n for Exam HAV (hallux abducto valgus), right Performed By: #### C BC, BMP #### [facility] [address] [id number] [facility] WBC (Bld) [#/Vol] 7.3 10*3/uL Normal 3.8-11.6 [facility] Comment on above: Order Comment: Reaso n for Exam HAV (hallux abducto valgus), right Performed By: #### C BC, BMP #### [facility] [address] [place] [address] [place] Creatinine and Glomerular fi ltration rate.predicted panel (S/P/Bld)Ordered By: Yordan Batres on 03-11-2022 Creatinine [Mass/Vol] 0.80 mg/dL 0.44-1.[address] [facility] ECG 12 lead ECGon 03-11-2022 ECG 12 lead ECG [facility] [address] [place] [address] [place] [address] Electrocardiograph Report Signed Patient: Claudette Ross MR#: [id number] : 1955 Acct:[id number] Age/Sex: 66 / F ADM Date: 03/11/22 Loc: XD Room: Type: [facility] Attending Dr: Yordan Batres DPM Ordering Provider: [...] Signed By Laura Chavez MD 1801 Normal [facility] Eosinophils Auto (Bld) [#/Vo l]Ordered By: Yordan Batres on 03-11-2022 Eosinophils (Bld) [#/Vol] 0.1 10*3/uL 0.0-0.45 [facility] Eosinophils/100 WBC Auto (Bl d)Ordered By: Yordan Batres on 03-11-2022 Eosinophils/100 WBC (Bld) 1.4 % . [facility] Erythrocyte distribution wid th Auto (RBC) [Ratio]Ordered By: Yordan Batres on 03-11-2022 Erythrocyte distribution width (RBC) [Ratio] 13.1 % 11.9-15.3 [facility] Estimated glomerular filtrat ion rate (GFR) non- AmericanOrdered By: Yordan Batres on 03-11-2022 GFR/1.73 sq M.predicted among non-blacks MDRD (S/P/Bld) [Vol rate/Area] > 60 mL/Min [facility] Hematocrit Auto (Bld) [Volum e fraction]Ordered By: Yordan Batres on 03-11-2022 Hematocrit (Bld) [Volume fraction] 39.5 % 34.0-46.4 [facility] Hemoglobin [Mass/volume] in BloodOrdered By: Yordan Batres on 03-11-2022 Hemoglobin (Bld) [Mass/Vol] 13.3 g/dL 11.8-15.4 [facility] Leukocytes [#/volume] correc slim for nucleated erythrocytes in Blood by Automated counOrdered By: Yordan Batres on 03-11-2022 WBC corrected for nucl RBC Auto (Bld) [#/Vol] 7.3 10*3/uL 3.8-11.6 [facility] Lymphocytes Auto (Bld) [#/Vo l]Ordered By: Yordan Batres on 03-11-2022 Lymphocytes (Bld) [#/Vol] 1.6 10*3/uL 1.00-4.8 [facility] Lymphocytes/100 WBC Auto (Bl d)Ordered By: Yordan Batres on 03-11-2022 Lymphocytes/100 WBC (Bld) 22.0 % . [facility] MCH Auto (RBC) [Entitic mass ]Ordered By: Yordan Batres on 03-11-2022 MCH (RBC) [Entitic mass] 30.0 pg 24.7-34.3 [facility] MCHC Auto (RBC) [Mass/Vol]Or dered By: Yordan Batres on 03-11-2022 MCHC (RBC) [Mass/Vol] 33.7 g/dL 32.0-35.[address] [facility] MCV Auto (RBC) [Entitic vol] Ordered By: Yordan Batres on 03-11-2022 MCV (RBC) [Entitic vol] 88.8 fL 80-100 [facility] Monocytes Auto (Bld) [#/Vol] Ordered By: Yordan Batres on 03-11-2022 Monocytes (Bld) [#/Vol] 0.5 10*3/uL 0.0-0.8 [facility] Monocytes/100 WBC Auto (Bld) Ordered By: Yordan Batres on 03-11-2022 Monocytes/100 WBC (Bld) 7.0 % . [facility] Neutrophils Auto (Bld) [#/Vo l]Ordered By: Yordan Batres on 03-11-2022 Neutrophils (Bld) [#/Vol] 5.0 10*3/uL 1.8-7.7 [facility] Neutrophils/100 WBC Auto (Bl d)Ordered By: Yordan Batres on 03-11-2022 Neutrophils/100 WBC (Bld) 69.2 % . [facility] No Panel InformationOrdered By: Yordan Batres on 03-11-2022 Estimated GFR () > 60 mL/Min [facility] Comment on above: GFR estimated refere nce range: According to KDOQI guidelines, <60 ml/min/1.73m2 is sufficient to diagnose a patient with chronic kidney disease. Pharmacy Creatinine Clearance (Chem N/A [facility] Nucleated erythrocytes [Pres ence] in Blood by Automated countOrdered By: Yordan Batres on 03-11-2022 Nucleated RBC Auto Ql (Bld) 0.2 /100{WBC} 0-0.5 [facility] Platelet mean volume Auto (B ld) [Entitic vol]Ordered By: Yordan Batres on 03-11-2022 Platelet mean volume (Bld) [Entitic vol] 7.6 fL 6.3-10.7 [facility] Platelets Auto (Bld) [#/Vol] Ordered By: Yordan Batres on 03-11-2022 Platelets (Bld) [#/Vol] 212 10*3/uL 150-450 [facility] RBC Auto (Bld) [#/Vol]Ordere d By: Yordan Batres on 03-11-2022 RBC (Bld) [#/Vol] 4.44 10*6/uL 3.60-5.00 [facility] Serum or plasma anion gap de terminationOrdered By: Yordan Batres on 03-11-2022 Anion gap [Moles/Vol] 11.2 mmol/L 6.0-15.0 [facility] Serum or plasma calcium yaz urement (mass/volume)Ordered By: Yordan Batres on 03-11-2022 Calcium [Mass/Vol] 9.2 mg/dL 8.2-10.2 [facility] Serum or plasma chloride ady surement (moles/volume)Ordered By: Yordan Batres on 03-11-2022 Chloride [Moles/Vol] 102 mmol/L 95-[address] [facility] Serum or plasma glucose yaz urement (mass/volume)Ordered By: Yordan Batres on 03-11-2022 Glucose [Mass/Vol] 99 mg/dL 70-100 [facility] Comment on above: ADA recommended refe rence rangeRandom Glucose Reference Range is dependent on time and content of last meal. Glucose of more than 200 mg/dL in a nonstressed, ambulatory subject supports the diagnosis of Diabetes Mellitus. Serum or plasma potassium me asurement (moles/volume)Ordered By: Yordan Batres on 03-11-2022 Potassium [Moles/Vol] 4.2 mmol/L 3.5-5.[address] [facility] Serum or plasma sodium measu rement (moles/volume)Ordered By: Yordan Batres on 03-11-2022 Sodium [Moles/Vol] 136 mmol/L 136-146 [facility] Serum or plasma total carbon dioxide measurement (moles/volume)Ordered By: Yordan Batres on 03-11-2022 CO2 [Moles/Vol] 27.0 mmol/L 22.0-30.0 [facility] Serum or plasma urea nitroge n measurement (mass/volume)Ordered By: Yordan Batres on 03-11-2022 Urea nitrogen [Mass/Vol] 10 mg/dL 9-23 [facility] WBC Auto (Bld) [#/Vol]Ordere d By: Yordan Batres on 03-11-2022 WBC (Bld) [#/Vol] 7.3 10*3/uL 3.8-11.6 [facility] XR chest 2V*on 03-11-2022 XR chest 2V* [facility] [place] [address] XRay Report Signed Patient: Claudette Ross MR#: [id number] : 1955 Acct:[id number] Age/Sex: 66 / F ADM Date: 03/11/22 Loc: XD Room: Type: [facility] Attending Dr: Yordan Batres DPElizabeth Copies to: [...] Carmela Carlos M.D.03/11/2022 2:29 PM Dictation Location: [place] [address] Transcribed By: [facility] 03/11/221428 Dictated By: Carmela Carlos MD 03/11/221427 Signed By: 03/11/221428 Normal [facility] LIPID PROFILEon 08-09-2021 CHOL-HDL RATIO NORM SEE BELOW Normal [facility] Comment on above: Result Comment: 3.3 - 4.4 LOW RISK 4.4 - 7.1 AVERAGE RISK 7.1 - 11.0 MODERATE RISK >11.0 HIGH RISK Performed By: #### L IPID, AST, ALT #### [facility] [address] [place] [address] [address] Dedrick Kinsey Cholesterol [Mass/Vol] 195 mg/dL Normal <=200 [facility] Comment on above: Performed By: #### L IPID, AST, ALT #### [facility] [address] [address] [address] Dedrick Kinsey Cholesterol in HDL [Mass/Vol] 47 mg/dL Normal 40-60 [facility] Comment on above: Performed By: #### L IPID, AST, ALT #### [facility] [address] [address] [address] Dedrick Kinsey Cholesterol in LDL [Mass/Vol] 130.0 mg/dL Normal [facility] Comment on above: Performed By: #### L IPID, AST, ALT #### [facility] [address] [address] [address] Dedrick Kinsey Cholesterol.total/Cho lesterol in HDL [Mass ratio] 4.1 {ratio} Normal [facility] Comment on above: Performed By: #### L IPID, AST, ALT #### [facility] [address] [address] [address] Dedrick Kinsey HDL NORMAL > or = 60 mg/dl - LO W CARDIOVASCULAR RISK <40 mg/dl - HIGH CARDIOVASCULAR RISK Normal [facility] Comment on above: Performed By: #### L IPID, AST, ALT #### [facility] [address] [address] [address] Dedrick Kinsey LDL CALC NORMAL SEE BELOW Normal [facility] Comment on above: Result Comment: <100 mg/dl OPTIMAL 100 - 129 mg/dl NEAR OR ABOVE OPTIMAL 130 - 159 mg/dl BORDERLINE HIGH 160 - 189 mg/dl HIGH >190 mg/dl VERY HIGH Performed By: #### L IPID, AST, ALT #### [facility] [address] [place] [address] Dr. Dedrick Kinsey Triglyceride [Mass/Vol] 90 mg/dL Normal <=150 [facility] Comment on above: Performed By: #### L IPID, AST, ALT #### [facility] [address] [place] [address] Dr. Dedrick Kinsey VLDL CALC 18.0 mg/dL Normal [facility] Comment on above: Performed By: #### L IPID, AST, ALT #### [facility] [address] [place] [address] Dr. Dedrick Kinsey [facility] 08-09-2021 AST [Catalytic activity/Vol] 16 U/L Normal 15-37 [facility] Comment on above: Performed By: #### L IPID, AST, ALT #### [facility] [address] [place] [address] Dr. Dedrick Kinsey [facility] 08-09-2021 ALT [Catalytic activity/Vol] 26 U/L Normal 14-59 [facility] Comment on above: Performed By: #### L IPID, AST, ALT #### [facility] [address] [place] [address] Dr. Dedrick Kinsey MG MAMM SCREEN 3D GERARD CADon 06-24-2021 MG MAMM SCREEN 3D GERARD CAD Patient: CLAUDETTE ROSS Exam Date: 06/24/2021 : 1955 Gender:F Ordering : RODNEY SOSA [facility] Admission #: [id number] Family : Order #: [id number] CLICK HERE TO VIEW EXAM RADIOLOGY REPORT [...] pancreatic cancer at age 58. LOCATION: [facility] BREAST COMPOSITION: Scattered areas fibroglandular density. FINDINGS: [...] Tamayo MD on 06/24/2021 at 11:40 Normal [facility] XR DEXA BONE DENSITYon 06-24 XR DEXA BONE DENSITY DEXA Bone Density S kilo CLINICAL: Evaluate bone mineral density. Postmenopausal COMPARISON: None FINDINGS: The bone density study was assessed by dual-energy x-ray absorptiometry with the Swyft scanner. The test results are expressed in [...] by: JACKELIN BATRES Date: 2021-06-24 11:38 Normal [facility] XR Chest 2 Viewson 2 XR Chest [...] Electronically Signed in Other Vendor System) Normal [facility] .eGFRon 01-26-2021 eGFR Non-AA >60 Normal >=60 [facility] Comment on above: Order Comment: Order added [...] years Performed By: #### E GFR #### [address] [address] eGFR AA >60 Normal >=60 [facility] Comment on above: Order Comment: Order added by Discern rule Result Comment: See comment. Performed By: #### E GFR #### [address] [address] AMI Initon 01-26-2021 Initial Myoglobin 35.8 ng/mL Normal 14.3-65.8 [facility] Comment on above: Performed By: #### A MI1 #### [address] [address] Initial Troponin <0.03 Normal 0.00-0.03 [facility] Comment on above: Result Comment: An i ncreased Troponin-I value, in the absence of myocardial ischemia, may indicate other etiologies of cardiac damage. Performed By: #### A MI1 #### [place] [address] CBC w/ Diffon 01-26-2021 Erythrocyte distribution width (RBC) [Ratio] 13.1 % Normal 11.6-14.8 [facility] Comment on above: Performed By: #### C BC #### [place] [address] Hematocrit (Bld) [Volume fraction] 37.4 % Normal 36.0-46.0 [facility] Comment on above: Performed By: #### C BC #### [place] [address] Hemoglobin (Bld) [Mass/Vol] 13.1 g/dL Normal 12.0-16.0 [facility] Comment on above: Performed By: #### C BC #### [place] [address] MCH (RBC) [Entitic mass] 30.2 pg Normal 27.0-35.0 [facility] Comment on above: Performed By: #### C BC #### [place] [address] MCHC 35.0 % Normal 31.0-37.0 [facility] Comment on above: Performed By: #### C BC #### [place] [address] MCV (RBC) [Entitic vol] 86.2 fL Normal 80.0-100.0 [facility] Comment on above: Performed By: #### C BC #### [place] [address] Platelet 196 x10*3/mcL Normal 150-350 [facility] Comment on above: Performed By: #### C BC #### [place] [address] Platelet mean volume (Bld) [Entitic vol] 7.4 fL Low 7.5-11.5 [facility] Comment on above: Performed By: #### C BC #### [address] [address] RBC 4.34 x10*6/mcL Normal 3.80-5.20 [facility] Comment on above: Performed By: #### C BC #### [address] [address] WBC 5.0 x10*3/mcL Normal 4.5-11.0 [facility] Comment on above: Performed By: #### C BC #### [place] [address] CMPon 01-26-2021 Albumin [Mass/Vol] 3.6 g/dL Low 3.7-5.3 [facility] Comment on above: Performed By: #### C OMP #### [place] [address] Albumin/Globulin [Mass ratio] 1.2 {ratio} Normal 1.1-2.2 [facility] Comment on above: Performed By: #### C OMP #### [address] [address] Alk Phos 68 IU/L Normal 34-104 [facility] Comment on above: Performed By: #### C OMP #### [address] [address] ALT [Catalytic activity/Vol] 21 U/L Normal 7-52 [facility] Comment on above: Performed By: #### C OMP #### [address] [address] Anion gap [Moles/Vol] 11 mmol/L Normal 7-17 [facility] Comment on above: Performed By: #### C OMP #### [address] [address] AST [Catalytic activity/Vol] 19 U/L Normal 13-39 [facility] Comment on above: Performed By: #### C OMP #### [address] [address] Bili Total 0.8 mg/dL Normal 0.3-1.0 [facility] Comment on above: Performed By: #### C OMP #### [address] [address] Calcium [Mass/Vol] 8.9 mg/dL Normal 8.6-10.3 [facility] Comment on above: Performed By: #### C OMP #### [address] [address] Chloride 105 IU/L Normal 98-107 [facility] Comment on above: Performed By: #### C OMP #### [address] [address] CO2 [Moles/Vol] 27 mmol/L Normal 21-31 [facility] Comment on above: Performed By: #### C OMP #### [address] [address] Creatinine [Mass/Vol] 0.7 mg/dL Normal 0.6-1.2 [facility] Comment on above: Performed By: #### C OMP #### [address] [address] Glucose [Mass/Vol] 105 mg/dL High 70-99 [facility] Comment on above: Performed By: #### C OMP #### [address] [address] Potassium [Moles/Vol] 3.4 mmol/L Normal 3.4-4.8 [facility] Comment on above: Performed By: #### C OMP #### [address] [address] Protein [Mass/Vol] 6.6 g/dL Normal 6.0-8.3 [facility] Comment on above: Performed By: #### C OMP #### [address] [address] Sodium [Moles/Vol] 140 mmol/L Normal 136-145 [facility] Comment on above: Performed By: #### C OMP #### [address] [address] Urea nitrogen [Mass/Vol] 10 mg/dL Normal 7-25 [facility] Comment on above: Performed By: #### C OMP #### [place] [address] Urea nitrogen/Creatinine [Mass ratio] 14.3 mg/mg Normal 10.0-20.0 [facility] Comment on above: Performed By: #### C OMP #### [place] [address] COV19 Rapidon 01-26-2021 Employed in healthcare? No [facility] Comment on above: Performed By: #### C [id number] #### [place] [address] Group care resident? No [facility] Comment on above: Performed By: #### C [id number] #### [place] [address] In ICU? No [facility] Comment on above: Performed By: #### C [id number] #### [place] [address] status? Not [facility] Comment on above: Performed By: #### C [id number] #### [place] [address] Reason for Rapid Test COVID Exposure [facility] Comment on above: Performed By: #### C [id number] #### [place] [address] SARS-CoV-2 (COVID-19) RNA JAYY+probe Ql (Unsp spec) Positive Critically abnormal Negative [facility] Comment on above: Result Comment: Test completion time: 1554 Called date and time: 01/26/2021 15:54:14 EST Result called to and read back by: LINDA SALAS RN, XE (First, Last, Title, Location) The 2019 novel [...] using the ID NOW COVID-19 test by [employer], which has received Emergency Use Authorization (EUA) [...] following links: Fact Sheet for HealthCare Providers: https://www.fda.gov/media/637075/download Fact Sheet for Patients: https://www.fda.gov/media/504313/download Performed By: #### C [id number] #### [place] [address] SARS-CoV-2 (COVID-19) RNA JAYY+probe Ql (Unsp spec) No Normal [facility] Comment on above: Performed By: #### C [id number] #### [place] [address] Symptomatic as defined by CDC? Yes Normal [facility] Comment on above: Performed By: #### C [id number] #### [place] [address] Diff Autoon 01-26-2021 Baso Absolute 0.0 x10*3/mcL Normal 0.0-0.2 [facility] Comment on above: Performed By: #### . Automated Diff #### [place] [address] Basophils/100 WBC (Bld) 0.4 % Normal 0.0-1.5 [facility] Comment on above: Performed By: #### . Automated Diff #### [place] [address] Eos Absolute 0.1 x10*3/mcL Normal 0.0-0.4 [facility] Comment on above: Performed By: #### . Automated Diff #### [place] [address] Eosinophils/100 WBC (Bld) 1.3 % Normal 0.0-5.4 [facility] Comment on above: Performed By: #### . Automated Diff #### [place] [address] Lymph Absolute 1.0 x10*3/mcL Normal 1.0-4.8 [facility] Comment on above: Performed By: #### . Automated Diff #### [place] [address] Lymphocytes/100 WBC (Bld) 19.2 % Low 27.2-40.8 [facility] Comment on above: Performed By: #### . Automated Diff #### [place] [address] Glades Absolute 0.6 x10*3/mcL Normal 0.1-1.1 [facility] Comment on above: Performed By: #### . Automated Diff #### [place] [address] Monocytes/100 WBC (Bld) 12.4 % High 3.7-11.9 [facility] Comment on above: Performed By: #### . Automated Diff #### [place] [address] Neutro Absolute 3.3 x10*3/mcL Normal 1.8-7.7 [facility] Comment on above: Performed By: #### . Automated Diff #### [place] [address] Neutro Auto 66.7 % Normal 47.2-70.8 [facility] Comment on above: Performed By: #### . Automated Diff #### [place] [address] ED Clinical Summaryon 2020 ED Clinical Summary (Inserted Image. Polina ble to display) [address] [address] ED Clinical Summary Person Information Name: Claudette Ross[place] Age: 65 Years : 1955 Sex: Female PCP: Nidhi Michaels MD Marital Status: Single Phone: Race: White Ethnicity: Not or Language: Czech Visit Reason: Chest pain; Chest pain - Cardiac Acuity: 3 Enc Type: Emergency Med Service: Emergency Medicine Arrival: 01/26/2021 13:48:22 Discharge: 01/26/2021 17:06:00 LOS: 000 03:18 Checkin: 01/26/2021 13:48:22 Checkout: 01/26/2021 17:06:00 Dispo Type: Home or Self Care Address: [address] [place] [address] Provider Notes: Diagnosis: 1:Pneumonia due to COVID-19 [...] range between ( 27.2 and 40.8 ) Glades Auto: 12.4 % -- Normal range between [...] range between ( 36.0 and 46.0 ) Glades Absolute: 0.6 x10 MCH: 30.2 pg -- [...] Visit Final Med List: New Medications [id number], [address] [place], [place] [id number], [phone] hydrocodone-acetaminophen ([place] 5 mg-325 mg oral tablet) 1 Tabs [...] mouth) 2 times a day. Last Dose: [id number], [address], [place] [id number], [phone] hydrocodone-acetaminophen ([place] 5 mg-325 mg oral tablet) 1 Tabs [...] Unassigned Chandni (more content not included)... Normal [facility] ED Note-Physicianon 01-27-20 ED Note-Physician Chief Complaint [...] tabs, 0 Refill(s), 01/29/21 17:00:00 EST, [id number] 2. Acute chest wall pain Ordered: hydrocodone-acetaminophen, 1 tabs, Oral, q4hr, PRN, X 3 days, # 18 tabs, 0 Refill(s), 01/29/21 17:00:00 EST, [id number] Orders: predniSONE, See Instructions, 6-5-4-3-2-1, # 21 tabs, 0 Refill(s), [id number] - ED Professional Level 4 Discharge Patient Refresh vitals and sections below: Problem List/Past Medical History Ongoing Depression Hypertension Hypothyroid Historical No qualifying data Procedure/Surgical History Elbow Foot Hysterectomy Neck Medications Inpatient No active inpatient medications Home [place] 5 mg-325 mg oral tablet, 1 tabs, [...] 66.7 Lymph Auto 01/26/21 14:14 19.2 Low Glades Auto 01/26/21 14:14 12.4 High Eos Auto 01/26/21 14:14 1.3 Basophil Auto 01/26/21 14:14 0.4 Neutro Absolute 01/26/21 14:14 3.3 Lymph Absolute 01/26/21 14:14 1.0 Glades Absolute 01/26/21 14:14 0.6 Eos Absolute 01/26/21 14:14 0.1 Baso Absolute 01/26/21 14:14 0.0 Routine Chemistry LATEST RESULTS Sodium Lvl 01/26/21 14:14 140 Potassium Lvl 01/26/21 14:14 3.4 Chloride 01/26/21 14:14 105 CO2 01/26/21 14:14 27 Anion Gap 01/26/21 14:14 11 Glucose Lvl 01/26/21 14:14 105 High BUN 01/26/21 14: (more content not included)... Normal [facility] TSH reflex Free T4on 021 TSH reflex Free T4 1.935 mcIU/mL Normal 0.490-4. 67 0 [facility] Comment on above: Performed By: #### L 404.9100, L404.7150, L400.0065 #### Main Laboratory ([facility]) [address] [place] [address] Arnulfo Little MD Vitamin B12on 10-27-2020 Cobalamin (Vitamin B12) [Mass/Vol] 135 pg/mL Low 180-914 [facility] Comment on above: Result Comment: B12 level of 145 - 180 is considered Indeterminate and level of <145 is considered Deficient. Performed By: #### L 404.9100, L404.7150, L400.0065 #### Main Laboratory ([facility]) [address] [place] [address] Arnulfo Little MD Vitamin D,25-hydroxy (Total) on 10-27-2020 25(OH) Vitamin D,Total 28.50 ng/mL Low 30.00-100. 00 [facility] Comment on above: Result Comment: Opti mal values are established by the Clinical Guidelines Subcommittee of the Endocrine Society Task Force. (Journal of Clinical Endocrinology & Metabolism,2011;96) Status Vitamin D Concentration Range ------- Deficient <20 Insufficient 20 - 30 Sufficient 30 - 100 Performed By: #### L 404.9100, L404.7150, L400.0065 #### Main Laboratory ([facility]) [address] [place] [address] Arnulfo Little MD Vitamin D,1,25-Dihydroxyon 0 10-21-2020 Vitamin D,1,25-Dihydroxy 74 pg/mL Normal 18-78 [facility] Comment on above: Result Comment: ---- ADDITIONAL INFORMATION This test was developed and its performance characteristics determined by [facility] in a manner consistent with CLIA requirements. This test has not been cleared or approved by the U.S. Food and Drug Administration. Test Performed by: [facility] [address] [place] [address] Service Developer: Rakan Kim M.D. Ph.D.; CLIA# [id number] Performed By: #### L 922.1720 #### [facility] [employer] [address] [place] [address] CBC with Differentialon 08-2 Abs Baso Count 0 /cmm Normal 0-200 [facility] Comment on above: Performed By: #### L 100.0000 #### Main Laboratory ([facility]) [address] [place] [address] Arnulfo Little MD Abs Eos Count 100 /cmm Normal 0-500 [facility] Comment on above: Performed By: #### L 100.0000 #### Main Laboratory ([facility]) [address] [place], [place] [address] Arnulfo Little MD Abs Lymph Count 1500 /cmm Normal 7303-7280 [facility] Comment on above: Performed By: #### L 100.0000 #### Main Laboratory ([facility]) [address] [place], [place] [address] Arnulfo Little MD Abs Glades Count 400 /cmm Normal 0-800 [facility] Comment on above: Performed By: #### L 100.0000 #### Main Laboratory ([facility]) [address] [place] [address] Arnulfo Little MD Abs Neut Count 3900 /cmm Normal 8758-8559 [facility] Comment on above: Performed By: #### L 100.0000 #### Main Laboratory ([facility]) [address] [place], [place] [address] Arnulfo Little MD Basophils/100 WBC (Bld) 0.5 % Normal 0-2 [facility] Comment on above: Performed By: #### L 100.0000 #### Main Laboratory ([facility]) [address] [place] [address] Arnulfo Little MD EOS-Auto Diff 1.5 % Normal 0-6 [facility] Comment on above: Performed By: #### L 100.0000 #### Main Laboratory ([facility]) [address] [place], [place] [address] Arnulfo Little MD Erythrocyte distribution width (RBC) [Ratio] 13.7 % Normal 12.0-16.0 [facility] Comment on above: Performed By: #### L 100.0000 #### Main Laboratory ([facility]) [address] [place] [address] Arnulfo Little MD Hematocrit (Bld) [Volume fraction] 39.3 % Normal 35.0-44.0 [facility] Comment on above: Performed By: #### L 100.0000 #### Main Laboratory ([facility]) [address] [place] [address] Arnulfo Little MD Hemoglobin (Bld) [Mass/Vol] 13.7 g/dL Normal 12.0-15.0 [facility] Comment on above: Performed By: #### L 100.0000 #### Main Laboratory ([facility]) [address] [place] [address] Arnulfo Little MD Lymphocytes/100 WBC (Bld) 25.3 % Normal 15-45 [facility] Comment on above: Performed By: #### L 100.0000 #### Main Laboratory ([facility]) [facility] [place] [address] Arnulfo Little MD MCH (RBC) [Entitic mass] 30.9 pg Normal 27.5-33.0 [facility] Comment on above: Performed By: #### L 100.0000 #### Main Laboratory ([facility]) [address] [place] [address] Arnulfo Little MD MCHC (RBC) [Mass/Vol] 34.9 g/dL Normal 33.0-36.0 [facility] Comment on above: Performed By: #### L 100.0000 #### Main Laboratory ([facility]) [address] [place] [address] Arnulfo Little MD MCV 88.6 CU JAMES Normal 80-97 [facility] Comment on above: Performed By: #### L 100.0000 #### Main Laboratory ([facility]) [address] [place] [address] Arnulfo Little MD Glades- Auto Diff 6.8 % Normal 2-10 [facility] Comment on above: Performed By: #### L 100.0000 #### Main Laboratory ([facility]) [address] [place] [facility] Arnulfo Little MD Neut-Auto Diff 65.9 % Normal 40-70 [facility] Comment on above: Performed By: #### L 100.0000 #### Main Laboratory ([facility]) [address] [place] [address] Arnulfo Little MD NRBC-Auto 0.1 /100 WBC Normal <1 [facility] Comment on above: Performed By: #### L 100.0000 #### Main Laboratory ([facility]) [address] [place] [address] Arnulfo Little MD Platelet Count 201 th/cmm Normal 150-400 [facility] Comment on above: Performed By: #### L 100.0000 #### Main Laboratory ([facility]) [address] [place] [address] Arnulfo Little MD RBC 4.44 mil/cmm Normal 4.00-5.10 [facility] Comment on above: Performed By: #### L 100.0000 #### Main Laboratory ([facility]) [address] [place] [address] Arnulfo Little MD WBC 5.9 th/cmm Normal 4.4-10.5 [facility] Comment on above: Performed By: #### L 100.0000 #### Main Laboratory ([facility]) [address] [place] [address] Arnulfo Little MD Comprehensive Metabolic Pane sandeep 10-16-2020 Albumin [Mass/Vol] 3.9 g/dL Normal 3.5-5.0 [facility] Comment on above: Order Comment: Is Pa tient Fasting? Yes Performed By: #### L 400.0076, L400.0400 #### Main Laboratory ([facility]) [address] [place] [facility] Arnulfo Little MD Albumin/Globulin [Mass ratio] 1.3 {ratio} Low 1.5-2.5 [facility] Comment on above: Order Comment: Is Pa tient Fasting? Yes Performed By: #### L 400.0076, L400.0400 #### Main Laboratory ([facility]) [address] [place] [address] Arnulfo Little MD Alk Phos 83 IU/L Normal 39-118 [facility] Comment on above: Order Comment: Is Pa tient Fasting? Yes Performed By: #### L 400.0076, L400.0400 #### Main Laboratory ([facility]) [address] [place] [id number] Arnulfo Little MD ALT [Catalytic activity/Vol] 16 U/L Normal 10-40 [facility] Comment on above: Order Comment: Is Pa tient Fasting? Yes Performed By: #### L 400.0076, L400.0400 #### Main Laboratory ([facility]) [address] [place] [address] Arnulfo Little MD Anion gap [Moles/Vol] 8 mmol/L Normal 4-12 [facility] Comment on above: Order Comment: Is Pa tient Fasting? Yes Performed By: #### L 400.0076, L400.0400 #### Main Laboratory ([facility]) [address] [place] [address] Arnulfo Little MD AST [Catalytic activity/Vol] 15 U/L Normal 15-41 [facility] Comment on above: Order Comment: Is Pa tient Fasting? Yes Performed By: #### L 400.0076, L400.0400 #### Main Laboratory ([facility]) [address] [place] [id number] Arnulfo Little MD Bili,Total 0.6 mg/dL Normal 0.2-1.0 [facility] Comment on above: Order Comment: Is Pa tient Fasting? Yes Performed By: #### L 400.0076, L400.0400 #### Main Laboratory ([facility]) [address] [place] [address] Arnulfo Little MD Calcium [Mass/Vol] 9.20 mg/dL Normal 8.8-10.5 [facility] Comment on above: Order Comment: Is Pa tient Fasting? Yes Performed By: #### L 400.0076, L400.0400 #### Main Laboratory ([facility]) [address] [place] [address] Arnulfo Little MD Chloride [Moles/Vol] 105 mmol/L Normal 101-111 [facility] Comment on above: Order Comment: Is Pa tient Fasting? Yes Performed By: #### L 400.0076, L400.0400 #### Main Laboratory ([facility]) [address] [place] [address] Arnulfo Little MD CO2 [Moles/Vol] 29 mmol/L Normal 21-32 [facility] Comment on above: Order Comment: Is Pa tient Fasting? Yes Performed By: #### L 400.0076, L400.0400 #### Main Laboratory ([facility]) [address] [place] [address] Arnulfo Little MD Creatinine [Mass/Vol] 0.85 mg/dL Normal 0.60-1.30 [facility] Comment on above: Order Comment: Is Pa tient Fasting? Yes Performed By: #### L 400.0076, L400.0400 #### Main Laboratory ([facility]) [address] [place] [address] Arnulfo Little MD GFR Calculation > 60 Normal [facility] Comment on above: Order Comment: Is Pa tient Fasting? Yes Result Comment: Furniture [employer]isher marky Kidney Disease stages by NKDF Stage eGFR I >90 II 60-89 III 30-59 IV 15-29 V <15 or dialysis AGE(years) AVERAGE GFR 60-69 85 ml/min/1.73 square meters Note:This result is normalized to 1.73 square meter body surface area. Height and weight are not factored. Performed By: #### L 400.0076, L400.0400 #### Main Laboratory ([facility]) [address] [place] [address] Arnulfo Little MD Glucose [Mass/Vol] 100 mg/dL Normal 70-110 [facility] Comment on above: Order Comment: Is Pa tient Fasting? Yes Result Comment: *Thi s reference range applies to fasting specimens only. Performed By: #### L 400.0076, L400.0400 #### Main Laboratory ([facility]) [address] [place] [address] Arnulfo Little MD Potassium [Moles/Vol] 3.7 mmol/L Normal 3.6-5.0 [facility] Comment on above: Order Comment: Is Pa tient Fasting? Yes Performed By: #### L 400.0076, L400.0400 #### Main Laboratory ([facility]) [address] [place] [address] Arnulfo Little MD Protein [Mass/Vol] 6.8 g/dL Normal 6.2-8.0 [facility] Comment on above: Order Comment: Is Pa tient Fasting? Yes Performed By: #### L 400.0076, L400.0400 #### Main Laboratory ([facility]) [address] [place] [address] Arnulfo Little MD Sodium [Moles/Vol] 142 mmol/L Normal 135-145 [facility] Comment on above: Order Comment: Is Pa tient Fasting? Yes Performed By: #### L 400.0076, L400.0400 #### Main Laboratory ([facility]) [address] [place] [address] Arnulfo Little MD Urea nitrogen [Mass/Vol] 10 mg/dL Normal 7-20 [facility] Comment on above: Order Comment: Is Pa tient Fasting? Yes Performed By: #### L 400.0076, L400.0400 #### Main Laboratory ([facility]) [address] [place] [address] Arnulfo Little MD Lipid Panelon 10-16-2020 Chol/HDL Risk 4.0 Normal 4.0-4.4 [facility] Comment on above: Order Comment: Is Pa tient Fasting? Yes Performed By: #### L 400.0076, L400.0400 #### Main Laboratory ([facility]) [address] [place] [address] Arnulfo Little MD Cholesterol [Mass/Vol] 160 mg/dL Normal <200 [facility] Comment on above: Order Comment: Is Pa tient Fasting? Yes Performed By: #### L 400.0076, L400.0400 #### Main Laboratory ([facility]) [address] [place] [address] Arnulfo Little MD Cholesterol in HDL [Mass/Vol] 40 mg/dL Normal [facility] Comment on above: Order Comment: Is Pa tient Fasting? Yes Result Comment: The National Cholesterol Education Program (NCEP) has set the following guidelines (reference values) for cholesterol, HDL: Low: <40 mg/dL Normal: 40-60 mg/dL High: >60 mg/dL Performed By: #### L 400.0076, L400.0400 #### Main Laboratory ([facility]) [address] [place] [address] Arnulfo Little MD Cholesterol in LDL [Mass/Vol] 104 mg/dL High [facility] Comment on above: Order Comment: Is Pa tient Fasting? Yes Result Comment: The National Cholesterol Education Program (NCEP) has set the following guidelines (reference values) for cholesterol, LDL: Desirable (optimal): <100 mg/dL Low Risk (near optimal): 100-129 mg/dL Borderline high: 130-159 mg/dL High: 160-189 mg/dL Very high: >=190 mg/dL Performed By: #### L 400.0076, L400.0400 #### Main Laboratory ([facility]) [address] [place] [address] Arnulfo Little MD Cholesterol in VLDL [Mass/Vol] 20 mg/dL Normal <39 [facility] Comment on above: Order Comment: Is Pa tient Fasting? Yes Performed By: #### L 400.0076, L400.0400 #### Main Laboratory ([facility]) [address] [place] [address] Arnulfo Little MD dLDL/HDL RISK 2.6 Normal <3.1 [facility] Comment on above: Order Comment: Is Pa tient Fasting? Yes Performed By: #### L 400.0076, L400.0400 #### Main Laboratory ([facility]) [address] [place] [address] Arnulfo Little MD Triglyceride [Mass/Vol] 102 mg/dL Normal <150 [facility] Comment on above: Order Comment: Is Pa tient Fasting? Yes Performed By: #### L 400.0076, L400.0400 #### Main Laboratory ([facility]) [address] [place] [address] Arnulfo Little MD BASIC METABOLIC PANELon 02-20 Calcium [Mass/Vol] 8.8 mg/dL Normal 8.6-10.3 [facility] Comment on above: Order Comment: No: D o not add to previous draw Performed By: #### 3 5200, 45248, 64585, 61173 #### [facility] [address] [place] [address], [place] Chloride [Moles/Vol] 106 mmol/L Normal 98-107 [facility] Comment on above: Order Comment: No: D o not add to previous draw Performed By: #### 3 5200, 74026, 67864, 21393 #### [facility] [address] [place] [address], [place] CO2 [Moles/Vol] 30 mmol/L Normal 21-31 [facility] Comment on above: Order Comment: No: D o not add to previous draw Performed By: #### 3 5200, 91908, 33737, 02461 #### [facility] [address] [place] [address], [place] Creatinine [Mass/Vol] 0.80 mg/dL Normal 0.60-1.20 [facility] Comment on above: Order Comment: No: D o not add to previous draw Performed By: #### 3 5200, 37604, 42251, 61435 #### [facility] [address] [place] [address], [place] GFR/1.73 sq M predicted among blacks MDRD (S/P/Bld) [Vol rate/Area] mL/min/{1.73_m2} Normal >60 [facility] Comment on above: Order Comment: No: D o not add to previous draw Performed By: #### 3 5200, 70650, 85309, 50259 #### [facility] [address] [place] [address], [place] GFR/1.73 sq M predicted among non-blacks MDRD (S/P/Bld) [Vol rate/Area] mL/min/{1.73_m2} Normal >60 [facility] Comment on above: Order Comment: No: D o not add to previous draw Performed By: #### 3 5200, 25768, 81402, 21538 #### [facility] [address] [place] [address], [place] Glucose [Mass/Vol] 102 mg/dL High 70-100 [facility] Comment on above: Order Comment: No: D o not add to previous draw Performed By: #### 3 5200, 64490, 57016, 86014 #### [facility] [address] [place] [address], [place] Potassium [Moles/Vol] 3.9 mmol/L Normal 3.5-5.1 [facility] Comment on above: Order Comment: No: D o not add to previous draw Performed By: #### 3 5200, 60095, 50285, 75024 #### [facility] [address] [place] [address], [facility] Sodium [Moles/Vol] 140 mmol/L Normal 136-145 [facility] Comment on above: Order Comment: No: D o not add to previous draw Performed By: #### 3 5200, 27778, 30625, 66198 #### [facility] [address] Urea nitrogen [Mass/Vol] 12 mg/dL Normal 7-25 [facility] Comment on above: Order Comment: No: D o not add to previous draw Performed By: #### 3 5200, 58750, 80201, 06566 #### [facility] [address] CBC COMPLETE BLOOD COUNTon - Erythrocyte distribution width (RBC) [Ratio] 13.2 % Normal 11.5-15.0 [facility] Comment on above: Order Comment: No: D o not add to previous draw Performed By: #### 5 0608 #### [facility] [address] [facility] Hematocrit (Bld) [Volume fraction] 38.1 % Normal 36.0-45.0 [facility] Comment on above: Order Comment: No: D o not add to previous draw Performed By: #### 5 0608 #### [facility] [address] [place] [address], [facility] Hemoglobin (Bld) [Mass/Vol] 12.2 g/dL Normal 12.0-15.0 [facility] Comment on above: Order Comment: No: D o not add to previous draw Performed By: #### 5 0608 #### [facility] [address] [place] [address], [facility] MCH (RBC) [Entitic mass] 29.5 pg Normal 27.0-33.0 [facility] Comment on above: Order Comment: No: D o not add to previous draw Performed By: #### 5 0608 #### [facility] [address] [place] [address], [facility] MCHC (RBC) [Mass/Vol] 32.0 g/dL Normal 32.0-35.0 [facility] Comment on above: Order Comment: No: D o not add to previous draw Performed By: #### 5 0608 #### [facility] [address] [place] [address], [facility] MCV (RBC) [Entitic vol] 92.0 fL Normal 82.0-98.0 [facility] Comment on above: Order Comment: No: D o not add to previous draw Performed By: #### 5 0608 #### [facility] [address] [facility] Nucleated RBC/100 WBC (Bld) [Ratio] 0 % Normal 0-0 [facility] Comment on above: Order Comment: No: D o not add to previous draw Performed By: #### 5 0608 #### [facility] [address] [place] [address], [facility] PLAT CNT 159 10*3/uL Normal 150-400 [facility] Comment on above: Order Comment: No: D o not add to previous draw Performed By: #### 5 0608 #### [facility] [address] [place] [address], [facility] RBC (Bld) [#/Vol] 4.14 10*6/uL Normal 3.80-5.00 [facility] Comment on above: Order Comment: No: D o not add to previous draw Performed By: #### 5 0608 #### [facility] [address] [place] [address], [facility] WBC (Bld) [#/Vol] 6.23 10*3/uL Normal 4.00-10.60 [facility] Comment on above: Order Comment: No: D o not add to previous draw Performed By: #### 5 0608 #### [facility] [address] [place] [address], [facility] LIPID PROFILEon 03-06-2019 Cholesterol [Mass/Vol] 151 mg/dL Normal 120-200 [facility] Comment on above: Order Comment: No: D o not add to previous draw Result Comment: CHOL ESTEROL REFERENCE RANGE: 20 YEARS AND OLDER CARDIOVASCULAR RISK Less than 200 mg/dl Low Risk 200 to 239 mg/dl Borderline Risk 240 mg/dl and greater High Risk Performed By: #### 4 6413, 29565 #### [facility] [address] [place] [address], [place] Cholesterol in HDL [Mass/Vol] 39 mg/dL Normal 23-92 [facility] Comment on above: Order Comment: No: D o not add to previous draw Result Comment: Slig ht variation in normal range could be due to gender and/or age. HDL CHOLESTEROL REFERENCE RANGE: 20 years and older Cardiovascular Risk > or =60 mg/dL Desirable 40 TO 59 mg/dL Low Risk <40 mg/dL High Risk Performed By: #### 4 1813, 46674 #### [facility] [address] [facility] [place] [address], [facility] Cholesterol in LDL [Mass/Vol] 90 mg/dL Normal 0-130 [facility] Comment on above: Order Comment: No: D o not add to previous draw Result Comment: LDL IS A CALCULATION LDL IS ONLY VALID IF THE TRIG IS LESS THAN 400. Performed By: #### 4 1112, 22450 #### [facility] [address] [place] [address], [place] Cholesterol.total/Cho lesterol in HDL [Mass ratio] 3.9 {ratio} Normal 0.0-4.5 [facility] Comment on above: Order Comment: No: D o not add to previous draw Performed By: #### 4 3113, 46407 #### [facility] [address] [place] [address], [place] NON-HDL CHOLESTEROL 112 mg/dL Normal [facility] Comment on above: Order Comment: No: D o not add to previous draw Performed By: #### 4 6413, 60230 #### [facility] [address] [place] [address], [facility] Triglyceride [Mass/Vol] 110 mg/dL Normal 40-149 [facility] Comment on above: Order Comment: No: D o not add to previous draw Result Comment: TRIG LYCERIDE REFERENCE RANGE: 20 YEARS AND OLDER CARDIOVASCULAR RISK LESS THAN 150 mg/dl LOW RISK 150 TO 199 mg/dl BORDERLINE RISK 200 mg/dl AND GREATER HIGH RISK Performed By: #### 4 6413, 25955 #### [facility] [address] [facility] VLDL CHOL 22 mg/dL Normal 0-40 [facility] Comment on above: Order Comment: No: D o not add to previous draw Performed By: #### 4 6413, 90651 #### [facility] [address] BASIC METABOLIC PANELon 02-20 Calcium [Mass/Vol] 8.8 mg/dL Normal 8.6-10.3 [facility] Comment on above: Order Comment: No: D o not add to previous draw Performed By: #### 3 5200, 25327, 78950, 71603 #### [facility] [address] [place] [address], [facility] Chloride [Moles/Vol] 107 mmol/L Normal 98-107 [facility] Comment on above: Order Comment: No: D o not add to previous draw Performed By: #### 3 5200, 20497, 14601, 48181 #### [facility] [address] [place] [id number], [facility] CO2 [Moles/Vol] 26 mmol/L Normal 21-31 [facility] Comment on above: Order Comment: No: D o not add to previous draw Performed By: #### 3 5200, 84161, 38360, 69899 #### [facility] [address] [place] [address], [place] Creatinine [Mass/Vol] 0.87 mg/dL Normal 0.60-1.20 [facility] Comment on above: Order Comment: No: D o not add to previous draw Performed By: #### 3 5200, 37981, 23265, 39493 #### [facility] [address] [place] [address], [place] GFR/1.73 sq M predicted among blacks MDRD (S/P/Bld) [Vol rate/Area] mL/min/{1.73_m2} Normal >60 [facility] Comment on above: Order Comment: No: D o not add to previous draw Performed By: #### 3 5200, 14410, 97885, 75921 #### [facility] [address] [place] [address], [place] GFR/1.73 sq M predicted among non-blacks MDRD (S/P/Bld) [Vol rate/Area] mL/min/{1.73_m2} Normal >60 [facility] Comment on above: Order Comment: No: D o not add to previous draw Performed By: #### 3 5200, 31531, 69724, 74574 #### [facility] [address] [place] [address], [place] Glucose [Mass/Vol] 118 mg/dL High 70-100 [facility] Comment on above: Order Comment: No: D o not add to previous draw Performed By: #### 3 5200, 35349, 23551, 40048 #### [facility] [address] [place] [address], [place] Potassium [Moles/Vol] 4.0 mmol/L Normal 3.5-5.1 [facility] Comment on above: Order Comment: No: D o not add to previous draw Performed By: #### 3 5200, 37192, 04023, 61840 #### [facility] [address] Sodium [Moles/Vol] 140 mmol/L Normal 136-145 [facility] Comment on above: Order Comment: No: D o not add to previous draw Performed By: #### 3 5200, 21359, 04277, 80227 #### [facility] [address] [place] [address], [facility] Urea nitrogen [Mass/Vol] 13 mg/dL Normal 7-25 [facility] Comment on above: Order Comment: No: D o not add to previous draw Performed By: #### 3 5200, 07121, 46769, 03015 #### [facility] [address] CBC COMPLETE BLOOD COUNTon 0 1-14-2019 Erythrocyte distribution width (RBC) [Ratio] 13.1 % Normal 11.5-15.0 [facility] Comment on above: Order Comment: No: D o not add to previous draw Performed By: #### 5 0608 #### [facility] [address] [place] [address], [facility] Hematocrit (Bld) [Volume fraction] 36.8 % Normal 36.0-45.0 [facility] Comment on above: Order Comment: No: D o not add to previous draw Performed By: #### 5 0608 #### [facility] [address] [place] [address], [facility] Hemoglobin (Bld) [Mass/Vol] 12.1 g/dL Normal 12.0-15.0 [facility] Comment on above: Order Comment: No: D o not add to previous draw Performed By: #### 5 0608 #### [facility] [address] [place] [id number], [place] [facility] MCH (RBC) [Entitic mass] 29.3 pg Normal 27.0-33.0 [facility] Comment on above: Order Comment: No: D o not add to previous draw Performed By: #### 5 0608 #### [facility] [address] [place] [address], [facility] MCHC (RBC) [Mass/Vol] 32.9 g/dL Normal 32.0-35.0 [facility] Comment on above: Order Comment: No: D o not add to previous draw Performed By: #### 5 0608 #### [facility] [address] [place] [address], [facility] MCV (RBC) [Entitic vol] 89.1 fL Normal 82.0-98.0 [facility] Comment on above: Order Comment: No: D o not add to previous draw Performed By: #### 5 0608 #### [facility] [address] [place] [address], [facility] Nucleated RBC/100 WBC (Bld) [Ratio] 0 % Normal 0-0 [facility] Comment on above: Order Comment: No: D o not add to previous draw Performed By: #### 5 0608 #### [facility] [address] [place] [address], [facility] PLAT CNT 164 10*3/uL Normal 150-400 [facility] Comment on above: Order Comment: No: D o not add to previous draw Performed By: #### 5 0608 #### [facility] [address] [place] [address], [facility] RBC (Bld) [#/Vol] 4.13 10*6/uL Normal 3.80-5.00 [facility] Comment on above: Order Comment: No: D o not add to previous draw Performed By: #### 5 0608 #### [facility] [address] [place] [address], [facility] WBC (Bld) [#/Vol] 6.30 10*3/uL Normal 4.00-10.60 [facility] Comment on above: Order Comment: No: D o not add to previous draw Performed By: #### 5 0608 #### [facility] [address] History and Physicalon 03-05 History and Physical MR#: [id number] [facility] Pt. Name: Claudette Ross Admitted: 03/05/2019 Date of : 1955 Attending Physician: Nitin Gonzalez MD Room #: 3AB [id number] Discharge Date: HISTORY AND PHYSICAL CHIEF COMPLAINT: Chest pain. HISTORY OF PRESENT ILLNESS: This is a 63-year-old female with past medical history significant for hypertension, dyslipidemia, hypothyroidism. 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 She reports that she was sitting on her chair when the episode started. It was 10/10 in intensity, associated with shortness of breath for which she called the EMS who gave her nitroglycerin sublingual, which helped a bit and then she was transferred to [facility]. In [facility], an EKG was done, which was showing no significant changes. Troponin was done, which was negative. The patient was started on nitroglycerin drip. She also had a CT angiogram of the chest, which was negative for pulmonary embolism, but it was positive for a pulmonary nodule and the patient was transferred to [facility] for further evaluation. The patient reports that she still does have 6/10 substernal chest pain but with no shortness of breath at this time. She still feels the pain in her neck. She reports that she never had those episodes recently, but remotely she had similar episodes, but she did not see a senior consumer insights consultant. She reports that she is compliant with her medication, but she does not recall exactly what medication she takes. PAST MEDICAL HISTORY: Include hypertension, dyslipidemia, hypothyroidism. SOCIAL HISTORY: She reports no history of tobacco use. No use of alcohol. MEDICATIONS: At home from the list from [facility] include Singulair 10 mg per oral daily, [...] Alert and oriented x3. LABORATORY DATA: From [facility] showing hemoglobin of 13, platelets 182, white [...] Gonzalez MD Date Trans: 03/05/2019 10:44 A/drew [id number]_[id number] Normal [facility] MAGNESIUM BLOODon 03-05-2019 Magnesium [Mass/Vol] 2.2 mg/dL Normal 1.9-2.7 [facility] Comment on above: Order Comment: No: D o not add to previous draw Performed By: #### 3 5200, 54797, 84017, 59088 #### [facility] [address] [place] [address], [facility] TROPONIN-Ion 03-05-2019 Troponin I.cardiac [Mass/Vol] 0.01 ng/mL Normal 0.00-0.04 [facility] Comment on above: Order Comment: No: D o not add to previous draw Result Comment: REFE RENCE RANGES: 0.00 - 0.04 ng/ml NORMAL 0.05 - 0.50 ng/ml INDETERMINATE > 0.50 ng/ml CONSISTENT WITH AN M.I. Performed By: #### 3 5200 #### [facility] [address] [place] [address], [facility] Troponin I.cardiac [Mass/Vol] 0.00 ng/mL Normal 0.00-0.04 [facility] Comment on above: Order Comment: No: D o not add to previous draw Result Comment: REFE RENCE RANGES: 0.00 - 0.14 ng/ml NEGATIVE 0.15 - 0.25 ng/ml INDETERMINATE > 0.25 ng/ml INDICATIVE OF AN M.I. Performed By: #### 3 5200 #### [facility] [address] [place] [address], [facility] Troponin I.cardiac [Mass/Vol] 0.00 ng/mL Normal 0.00-0.04 [facility] Comment on above: Order Comment: No: D o not add to previous draw Result Comment: REFE RENCE RANGES: 0.00 - 0.14 ng/ml NEGATIVE 0.15 - 0.25 ng/ml INDETERMINATE > 0.25 ng/ml INDICATIVE OF AN M.I. Performed By: #### 3 5200, 74864, 96061, 67412 #### [facility] [address] TSH3 WITH REFLEXon 0 TSH 3RD GENERATION 2.38 uIU/mL Normal 0.34-5.60 [facility] Comment on above: Performed By: #### 3 5200, 48761, 93538, 89157 #### [facility] [address] Intraoperative Noteon 2017 Intraoperative Note [id number]#[address] [place] [address] Intraoperative Note [id number] History and Physicalon 02-22 History and Physical [id number] Provider Orderson 02-22-2017 Provider Orders [id number] Coding Summaryon 01-18-2017 Coding Summary CODING DATE: 017 [facility] STATUS: Home PAYOR: Medicare APC DESCRIPTION 5431 Level 1 Nerve Procedures ADMIT DX: REASON FOR VISIT DX: G56.02 Carpal tunnel syndrome, left upper limb FINAL DX: PRINCIPAL: G56.02 Carpal tunnel syndrome, left upper limb SECONDARY: E78.5 Hyperlipidemia, unspecified I10 Essential (primary) hypertension E03.9 Hypothyroidism, unspecified Z72.0 Tobacco use PYMT PROC APC STAT DESCRIPTION DOCTOR NAME DATE 61894 5431 Gabi1 Neuroplasty and/or Conrado Mccoy And 01/16/2017 transposition; [...] Rossana Swan Date Saved: 01/18/2017 07:38 am [facility] Consent Formson 01-17-2017 Consent Forms [id number]#1.00OTGTIFF [facility] Anesthesia Noteon 01-16-2017 [facility] Patient: Kolby ROSS : 61 years Sex: FEMALE : [birth year]Associated Diagnoses: NoneAuthor: Rakan Hernandezostoperative InformationAnesthetic utilized: Monitored anesthesia care.AssessmentAnesthetic outcomeNo anesthetic complications noted.PlanTransfer/ Discharge: Patient can be discharged from PACU when criteria met.Condition good.[Electronically Signed on: 01/16/2017 14:17 EST] Rakan Hernandez MD[Verified on: 01/16/2017 14:17 EST] Rakan Hernandez MD [facility] Anesthesia Note Patient: Kolby ROSS : 61 years Sex: FEMALE : [birth year]Associated Diagnoses: NoneAuthor: Rakan Hernandezreoperative InformationAnesthesia history: Family history. Patient history: No [...] 50 mg = 1 tab(s), PRN, PO, f7pjNpaszvj list (past medical history):All ProblemsHypothyroidism / SNOMED CT 80098313 / ConfirmedCanceled: No Chronic Problems / Cerner NKPHistoriesFamily History:No family history items have been selected or recorded.Procedure history:Carpal tunnel decompression (4756298083) on 12/12/2016 at 61 Years.Cholecystectomy (79045113).Hysterectomy and bilateral salpingo-oophorectomy sample (820592663).Fracture (262786322).Comments: 08:10 - Vandana Onofre wristDisc (7746641944).Comments:2016 08:11 - Vandana Onofre elvira and screwsSpur of ankle bone ([id number]).Comments:1 08:12 - Vandana Onofre footRotator cuff repair (141743711).Comments: 08:12 - Vandana OnofrehtSocial History Alcohol Assessment Use: Never. Tobacco Assessment Never (less than 100 in lifetime) Tobacco Use:..Social & Psychosocial SugwwgIegmmor64/20/2017 Alcohol Use: EqlzcCbzuohy27/20/2017 Smoking tobacco use: Never (less than 100 [...] was given.[Electronically Signed on: 01/16/2017 12:52 EST] FullRakan german MD[Verified on: 01/16/2017 12:52 EST] Rakan Hernandez MD Normal [facility] Inpatient Clinical Summaryon 01-16-2017 Inpatient Clinical Summary [facility] SURGERYClinical Discharge SummaryPERSON INFORMATIONName CLAUDETTE ROSS Age 61 Years 54Sex FEMALE Language Czech PCP Provider, UnlistedMarital Status Single [facility] 15-74-43 Acct# Arrival 01/16/17 09:25:18Visit Reason LEFT CARPAL TUNNEL RELEASE Acuity LOS 010 23:07Address:[address] [facility] [address]Mrkwzvx:PROVIDER INFORMATIONVITALS INFORMATIONVital Sign Triage LatestTemp OralTemp TemporalTemp IntravascularTemp AxillaryTemp Smylfp07 Sat 96 % 95 %Respiratory Rate 16 [...] EDUCATION INFORMATIONInstructions:Juan gonzales- Post Op Carpal Tunnel (MHAHUDJEANETTE)Follow up:With: Address: When:Conrado Mccoy [address] [facility], [place], [phone] Business (2)Comments:Call for follow up appointmentWith: Address: When:Unlisted ProviderDIAGNOSISCarpal tunnel syndrome on leftComment:PHYS DOC NOTES Normal [facility] Inpatient Patient Summaryon 01-16-2017 Inpatient Patient Summary [address] [address] patient Discharge InstructionsName: CLAUDETTE ROSS ADOB: [birth year] Address: [address] [place] [address] Care Provider:Name: Provider, UnlistedPhone:After you are discharged if you find you have any questions, please, call [phone] ext [phone] to speak to a nurse.Discharge Diagnosis: Carpal [...] or business decisions or sign any legal documentsUc Health would like to thank you for allowing us to assist you with your healthcare needs. The following includes patient education materials and information regarding your injury/illness.CLAUDETTE ROSS has been given the following list of follow-up instructions, prescriptions, and patient education materials:Follow-up InstructionsWith: Address: When:Conrado Mccoy [address] [place] [address], [address] [place], [phone] Business (2)Comments:Call for follow up appointmentWith: Address: [...] while awake-DO NOT lift heavy objects or candy butcher forcefully with your hand-Change your dressing in [...] or concerns, please call the office at [phone]-Follow up as scheduledViruses or BacteriaWhat?s got you [...] for Disease Control and Prevention October 2013 [facility] Intraoperative [facility]16[facility]2017 [facility] Intra-Op Record Summary Primary Physician: Conrado Mccoy DO Finalized Date/Time: 01/16/17 15:01:02 Pt. Name: CLAUDETTE ROSS/Sex: 1955 FEMALE Med Rec #: [id number] Physician: Conrado Mccoy DO Financial #: [id number] Pt. Type: D Room/Bed: / Admit/Disch: 01/16/17 [...] Role Performed Surgeon - Primary Anesthesiologist of Show Card Writer Record Time In 01/16/17 13:11:00 01/16/17 13:11:00 01/16/17 13:11:00 Time Out 01/16/17 13:44:00 01/16/17 13:44:00 01/16/17 13:44:00 Procedure Carpal Tunnel Carpal Tunnel Carpal Tunnel Release(Left) Release(Left) Release(Left) Last Modified By: Caroline Montgomery RN, Stephanie RN Sauer, Stephanie RN 01/16/17 14:29:30 01/16/17 14:29:30 01/16/17 14:29:30 Entry 4 Entry 5 Case Attendee Paul Alas Linda M Regina CST Role Performed Scrub Personnel Power Generation Technician Time In 01/16/17 13:11:00 01/16/17 13:11:00 Time [...] the Initial Count Performed By Terri Alas PHLEBOTOMY TECH Initial Count Time 01/16/17 13:10:00 Counts Verification Final Counts Items Included in Sponges, Sharps Final Count Status Correct Final Count Final Counts Caroline Montgomery RN, Final Count Time 01/16/17 13:35:00 Performed By Terri Alas PHLEBOTOMY TECH Surgeon notified of Yes final counts status [...] Unfinalizing Freetext Reason for Unfinalizing 01/16/17 15:00 TILA Monet [facility]ation [facility]2017 [facility] Record Summary Primary Physician: Conrado Mccoy DO Finalized Date/Time: 01/16/17 15:27:42 Pt. Name: ARIEL ROSSSTEFANO Adrian/Sex: 1955 FEMALE Med Rec #: [id number] Physician: Conrado Mccoy DO Financial #: [id number] Pt. Type: D Room/Bed: / Admit/Disch: 01/16/17 [...] Arrives per cart from OR accompanied by Olrando Hendrickson RN and Alla Lawrence RN report received 1527 - discharged per wheelchair to private auto driven by daughter for home Finalized By: Susu Stern RN Document Signatures Signed By: Susu Stern RN 01/16/17 15:27 [facility]-18-2016 [facility] Pre-Op Record Summary Primary Physician: Conrado Mccoy DO Finalized Date/Time: 01/16/17 13:05:28 Pt. Name: VANDANA CLAUDETTE Adrian/Sex: 1955 FEMALE Med Rec #: [id number] Physician: Conrado Mccoy DO Financial #: [id number] Pt. Type: D Room/Bed: / Admit/Disch: 01/16/17 [...] Signed By: Susu Stern RN 01/16/17 13:05 [facility] Operative Report - Surgeon/P corey [...] on: 01/16/2017 13:32 EST] Conrado Mccoy DO [facility] MAGR Intraoperative Recordon 01-10-2017 [facility] Intraoperative Record [facility] Intra-Op Record Summary Primary Physician: Conrado Mccoy DO Finalized Date/Time: 01/10/17 10:13:17 Pt. Name: CLAUDETTE ROSS Esmer DavisB./Sex: 1955 FEMALE Med Rec #: [id number] Physician: Conrado Mccoy DO Financial #: [id number] Pt. Type: D Room/Bed: / Admit/Disch: 12/12/16 [...] Role Performed Surgeon - Primary Anesthesiologist of Show Card Writer Record Time In 12/12/16 16:52:00 12/12/16 16:52:00 12/12/16 16:52:00 Time Out 12/12/16 17:25:00 12/12/16 17:25:00 12/12/16 17:25:00 Procedure Carpal Tunnel Carpal Tunnel Carpal Tunnel Release(Right) Release(Right) Release(Right) Last Modified By: Bina Limon RN, Barbara RN Long, Barbara RN 12/12/16 17:25:48 12/12/16 17:25:48 12/12/16 17:25:48 Entry 4 Entry 5 Case Attendee Chelsie Marcum CST, Leigh-Ann CST Role Performed Scrub Personnel Power Generation Technician Time In 12/12/16 16:52:00 12/12/16 16:52:00 Time [...] Primary Surgeon Conrado Mccoy DO Surgeon Comment RELEASE RIGHT CARPAL Start [...] Bear, the Initial Count Performed By Chelsie Johnson CST Initial Count Time 12/12/16 17:00:00 Counts Verification Final Counts Items Included in Sponges, Sharps Final Count Method Manual Final Count Final Count Status Correct Final Counts Bina Limon RN, Jossue, Performed By Chelsie Johnson CST Final Count Time 12/12/16 17:14:00 Surgeon notified [...] (O.60) Yes Henri DO Last Modified By: Bnia Limon RN 12/12/16 17:22:56 Post-Care Text: E.10 [...] 01/10/17 10:12 MHBLONG Modify Pick List [facility] 1 02-22-2016 [facility] Preoperative Record [facility] Pre-Op Record Summary Primary Physician: Conrado Mccoy DO Finalized Date/Time: 12/22/16 13:33:53 Pt. Name: ARPITKELSIECLAUDETTE WRIGHT/Sex: 1955 FEMALE Med Rec #: [id number] Physician: Conrado Mccoy DO Financial #: [id number] Pt. Type: D Room/Bed: / Admit/Disch: 12/12/16 [...] consent correct. General Comments: arrives ambulatory to [facility], denies recent cp, sob, new illnesses, pacemaker, defibrillator or sleep apnea Finalized By: Susu Stern RN Document Signatures Signed By: Susu Stern RN 12/22/16 13:33 [facility] Coding Summaryon 12-15-2016 Coding Summary CODING DATE: [facility] STATUS: Home PAYOR: Medicare APC DESCRIPTION [...] Linda Jenkins Date Saved: 12/15/2016 04:40 pm [facility] Coding Summary CODING DATE: [facility] STATUS: Home PAYOR: Medicare APC DESCRIPTION 5431 Level 1 Nerve Procedures ADMIT DX: REASON FOR VISIT DX: G56.01 Carpal tunnel syndrome, right upper limb FINAL DX: PRINCIPAL: G56.01 Carpal tunnel syndrome, right upper limb SECONDARY: PYMT PROC APC STAT DESCRIPTION DOCTOR NAME DATE 72514 5431 J1 Neuroplasty and/or Conrado Mccoy And [...] Rachel Zafar Date Saved: 12/15/2016 01:30 pm [facility] Consent Formson 12-13-2016 Consent Forms [id number]#1.00[facility] 12-13 History and Physical [id number]#1.00[facility] Provider Orderson 12-13-2016 Provider Orders [id number]#1.00[facility] Anesthesia Noteon 12-12-2016 Anesthesia Note Patient: Kolby ROSS : 61 years Sex: FEMALE : [birth year]Associated Diagnoses: NoneAuthor: Theodore Guevara MDPostoperative InformationPost Operative Note: Operative Day.Anesthetic utilized: Monitored anesthesia care.Health StatusAllergies:Allergic Reactions (All)Severity Not DocumentedCodeine- Rash.Percocet 5/325- Rash.Vicodin- Rash.Problem list (past medical history):All ProblemsHypothyroidism / SNOMED CT 08232414 / ConfirmedCanceled: No Chronic Problems / Cerner [...] on: 12/12/2016 17:31 EDT] Theodore Guevara MD [facility] Anesthesia Note Patient: Kolby ROSS : 61 [...] (past medical history):All ProblemsHypothyroidism / SNOMED CT 51402361 / ConfirmedCanceled: No Chronic Problems / Cerner NKPAsthma, mildHistoriesFamily History:No family history items have been selected or recorded.Procedure history:Cholecystectomy (23415654).Hysterectomy and bilateral salpingo-oophorectomy sample (246321969).Fracture (763533606).Comments: 017 08:10 - Vandana Onofre wristDisc ([id number]).Comments:2016 08:11 - Vandana Onofre evlira and screwsSpur of ankle bone ([id number]).Comments:1 08:12 - Vandana Onofre footRotator cuff repair (140195087).Comments: 017 08:12 - Federiconicola Vandana RNrightSocial History Alcohol Assessment Use: Never. Tobacco Assessment Never (less than 100 in lifetime) Tobacco Use:..Social & Psychosocial OucnyqRyenavx81/20/2017 Alcohol Use: VpofeBgllbhu92/20/2017 Smoking tobacco use: Never (less than 100 [...] 12/12/2016 14:32 EDT] Theodore Guevara MD Normal [facility] Inpatient Clinical Summaryon 12-12-2016 Inpatient Clinical Summary [facility] SURGERYClinical Discharge SummaryPERSON INFORMATIONName CLAUDETTE ROSS Age 61 Years 55Sex FEMALE Language Czech PCP Provider, UnlistedMarital Status Single [facility] 15-74-43 Acct# Arrival 12/12/16 12:05:33Visit Reason SURGERY - RELEASE RIGHT CARPAL TUNNEL Acuity LOS 005 08:24Address:[address] [facility] [address]Njerjcs:PROVIDER INFORMATIONVITALS INFORMATIONVital Sign Triage LatestTemp OralTemp TemporalTemp IntravascularTemp AxillaryTemp Fkaovn58 Sat 96 % 96 %Respiratory Rate 16 [...] EDUCATION INFORMATIONInstructions:Juan gonzales- Post Op Carpal Tunnel (AHUDJEANETTE)Follow up:With: Address: When:Conrado Ontiveros[address], [place], [phone] Business (2)With: Address: When:Unlisted ProviderDIAGNOSISRight carpal tunnel syndromeComment:PHYS DOC NOTES Normal [facility] Inpatient Patient Summaryon 12-12-2016 Inpatient Patient Summary [address] [address] patient Discharge InstructionsName: CLAUDETTE ROSS ADOB: [birth year] Address: [address] [place] [address] Care Provider:Name: Provider, UnlistedPhone:Discharge Diagnosis: Right carpal [...] or business decisions or sign any legal documentsUc Health would like to thank you for allowing us to assist you with your healthcare needs. The following includes patient education materials and information regarding your injury/illness.CLAUDETTE ROSS has been given the following list of follow-up instructions, prescriptions, and patient education materials:Follow-up InstructionsWith: Address: When:Conrado Ontiveros[address], [place], [phone] Business (2)With: Address: When:Unlisted ProviderMedicationsDuring the course [...] while awake-DO NOT lift heavy objects or candy butcher forcefully with your hand-Change your dressing in [...] or concerns, please call the office at [phone]-Follow up as scheduled Viruses or BacteriaWhat?s got [...] Antibiotics Beti.[place]. Department of Health and Human ServicesBarnesville Hospitalers for Disease Control and Prevention October 2013 [facility] 12-12-2016 [facility] Postoperative Record [facility] Phase II Record Summary Primary Physician: Conrado Mccoy DO Finalized Date/Time: 12/12/16 18:18:35 Pt. Name: CLAUDETTE ROSS Esmer Neves./Sex: 1955 FEMALE Med Rec #: [id number] Physician: Conrado Mccoy DO Financial #: [id number] Pt. Type: D Room/Bed: / Admit/Disch: 12/12/16 [...] By: Bina Limon RN 12/12/16 18:18 Normal [facility] Operative Report - Surgeon/P corey 12-12-2016 Operative Report - Surgeon/Physician Procedure: Decompression of median nerve right wrist with release of carpal canalPre Op Diagnosis: Carpal tunnel syndrome rightPost Op Dianosis: Carpal tunnel syndrome rightSurgeon: Dr. Gabi Mccoy DOAnesthesia: Conscious sedation with localIndication for Surgery: [...] 12/12/2016 17:29 EDT] Conrado Mccoy DO Normal [facility] .Auto Diff 1on 12-09-2016 Auto Baso % 0.3 % Normal 0.2-2.0 [facility] Comment on above: Performed By: #### 7 713121, [id number], [id number] ####[facility] (DEFAULT)[address] [place] [address] Auto Glades % 10 % Normal 1-12 [facility] Comment on above: Performed By: #### 7 603550, [id number], [id number] ####[facility] (DEFAULT)[address] [place] [address] Auto Neut % 63 % Normal 44-88 [facility] Comment on above: Performed By: #### 7 763166, [id number], [id number] ####[facility] (DEFAULT)[address] [place] [address] Baso Abs# 0.0 x10 Normal 0.0-0.2 [facility] Comment on above: Performed By: #### 7 853677, [id number], [id number] ####[facility] (DEFAULT)[address] [place] [address] Eos Abs# 0.1 x10 Normal 0.0-0.4 [facility] Comment on above: Performed By: #### 7 459530, [id number], [id number] ####[facility] (DEFAULT)[address] [place] [address] Eosinophils/100 leukocytes 1.5 % Normal 0.9-4.0 [facility] Comment on above: Performed By: #### 7 827315, [id number], [id number] ####[facility] (DEFAULT)[address] [place] [address] Lymphocytes 1.5 x10 Normal 1.3-2.9 [facility] Comment on above: Performed By: #### 7 375030, [id number], [id number] ####[facility] (DEFAULT)[address] [place] [address] Lymphocytes/100 leukocytes 25 % Normal 14-48 [facility] Comment on above: Performed By: #### 7 540536, [id number], [id number] ####[facility] (DEFAULT)[address] [place] [address] Glades Abs# 0.6 x10 Normal 0.0-0.8 [facility] Comment on above: Performed By: #### 7 634539, [id number], [id number] ####[facility] (DEFAULT)[address] [place] [address] Neut Abs# 3.8 x10 Normal 1.5-9.2 [facility] Comment on above: Performed By: #### 7 461923, [id number], [id number] ####[facility] (DEFAULT)[address] [place] [address] Standardon 12-09-2016 eGFR (non-black) mL/min/{1.73_m2} Invalid Interpretation Code [facility] Comment on above: Performed By: #### 7 522138, [id number], [id number] ####[facility] (DEFAULT)[address] [place] [address] eGFR (non-black) mL/min/{1.73_m2} Invalid Interpretation Code [facility] Comment on above: Result Comment: Furniture Finisher marky Kidney disease could be indicated at eGFRs of less than 60 ml/min/1.73m2. Kidney Failure is indicated at less than 15 ml/min/1.73m2 Performed By: #### 7 [id number], [id number], [id number] ####[facility] (DEFAULT)[address] [place] [address] Anion gap 11.0 mmol/L Normal 5.0-19.0 [facility] Comment on above: Performed By: #### 7 [id number], [id number], [id number] ####[facility] (DEFAULT)[address] [place] [address] BUN/Creatinine Ratio 12.0 mg/mg Normal 4.6-16.2 [facility] Comment on above: Performed By: #### 7 [id number], [id number], [id number] ####[facility] (DEFAULT)[address] [place] [address] 17451 Calcium 9.1 mg/dL Normal 8.9-10.3 [facility] Comment on above: Performed By: #### 7 [id number], [id number], [id number] ####[facility] (DEFAULT)[address] [place] [address] 30099 Chloride 104 mmol/L Normal 101-111 [facility] Comment on above: Performed By: #### 7 230131, [id number], [id number] ####[facility] (DEFAULT)[address] [place] [address] 18625 CO2 26 mmol/L Normal 21-32 [facility] Comment on above: Performed By: #### 7 196730, [id number], [id number] ####[facility] (DEFAULT)[address] [place] [address] 33175 Creatinine 0.86 mg/dL Normal 0.60-1.30 [facility] Comment on above: Performed By: #### 7 [id number], [id number], [id number] ####[facility] (DEFAULT)[address] [place] [address] 79993 Glucose mass conc 112.0 mg/dL Normal 74.0-118.0 [facility] Comment on above: Performed By: #### 7 135305, [id number], [id number] ####[facility] (DEFAULT)[address] [place] [address] 47738 Osmolality 274 mOsm/L Invalid Interpretation Code [facility] Comment on above: Performed By: #### 7 [id number], [id number], [id number] ####[facility] (DEFAULT)[address] [place] [address] 81846 Potassium molar conc 3.8 mmol/L Normal 3.6-5.1 [facility] Comment on above: Performed By: #### 7 123247, [id number], [id number] ####[facility] (DEFAULT)[address] [place] [address] Sodium 137.0 mmol/L Normal 136.0-144. 0 [facility] Comment on above: Performed By: #### 7 188401, [id number], [id number] ####[facility] (DEFAULT)[address] [place] [address] Urea nitrogen 10 mg/dL Normal 8-26 [facility] Comment on above: Performed By: #### 7 741158, [id number], [id number] ####[facility] (DEFAULT)[address] [place] [address] CBC w/ Auto Diffon 7 Erythrocyte distribution width Auto Ratio (RBC) 13.2 % Normal 11.5-15.0 [facility] Comment on above: Performed By: #### 7 [id number], [id number], [id number] ####[facility] (DEFAULT)[address] [place] [address] Erythrocytes (RBC) 4.40 x10 Normal 3.70-5.30 [facility] Comment on above: Performed By: #### 7 127810, [id number], [id number] ####[facility] (DEFAULT)[address] [place] [address] Hematocrit (HCT) 39.4 % Normal 33.7-40.4 [facility] Comment on above: Performed By: #### 7 [id number], [id number], [id number] ####[facility] (DEFAULT)[address] [place] [address] Hemoglobin mass conc (Bld) 13.8 g/dL Normal 11.3-15.9 [facility] Comment on above: Performed By: #### 7 543465, [id number], [id number] ####[facility] (DEFAULT)[address] [place] [address] Man Diff? Auto Normal [facility] Comment on above: Performed By: #### 7 074577, [id number], [id number] ####[facility] (DEFAULT)[address] [place] [address] MCH 31 pg Normal 24-34 [facility] Comment on above: Performed By: #### 7 152900, [id number], [id number] ####[facility] (DEFAULT)[address] [place] [address] MCHC mass conc (RBC) 35 g/dL Normal 26-37 [facility] Comment on above: Performed By: #### 7 774333, [id number], [id number] ####[facility] (DEFAULT)[address] [place] [address] MCV 90 fL Normal 81-100 [facility] Comment on above: Performed By: #### 7 155593, [id number], [id number] ####[facility] (DEFAULT)[address] [place] [address] Platelet mean volume (PMV) 8.6 fL Normal 6.3-10.2 [facility] Comment on above: Performed By: #### 7 560507, [id number], [id number] ####[facility] (DEFAULT)[address] [place] [address] Platelets 194 x10 Normal 138-427 [facility] Comment on above: Performed By: #### 7 844706, [id number], [id number] ####[facility] (DEFAULT)[address] [place] [address] WBC (Leukocytes) 6.0 x10 Invalid Interpretation Code [facility] Comment on above: Performed By: #### 7 155329, [id number], [id number] ####[facility] (DEFAULT)[address] [place] [address] Vital Signs Date Time Vital Sign Value Performing Clinician Facility 03-25-2024 14:56-0500 Diastolic blood pressure 84 mm[Hg] Jessica Sosa SECURITY REPRESENTATIVE Work Phone: [facility] 03-25-2024 14:56-0500 Systolic blood pressure 152 mm[Hg] Jessica Sosa SECURITY REPRESENTATIVE Work Phone: [facility] 03-25-2024 14:26-0500 Body height 162.6 cm Jessica Aichholz SECURITY REPRESENTATIVE Work Phone: [facility] 03-25-2024 14:26-0500 Body mass index (BMI) [Ratio] 32.68 kg/m2 Jessica Kelsiholz SECURITY REPRESENTATIVE Work Phone: [facility] 03-25-2024 14:26-0500 Body temperature 98.49 [degF] Jessica Aichholz SECURITY REPRESENTATIVE Work Phone: [facility] 03-25-2024 14:26-0500 Body weight 86.36 kg Jessica Kelsiholz SECURITY REPRESENTATIVE Work Phone: [facility] 03-25-2024 14:26-0500 Heart rate 86 /min Jessica Levhholz SECURITY REPRESENTATIVE Work Phone: [facility] 03-25-2024 14:26-0500 Respiratory rate 18 /min Jessica Levhholz SECURITY REPRESENTATIVE Work Phone: [facility] 03-25-2024 14:26-0500 SaO2% (BldA) [Mass fraction] 96 % Jessica Kelsiholz SECURITY REPRESENTATIVE Work Phone: [facility] 12-20-2023 16:36-0400 Body height 170.2 cm Jessica Kelsiholz SECURITY REPRESENTATIVE Work Phone: [facility] 12-20-2023 16:36-0400 Body mass index (BMI) [Ratio] 29.6 kg/m2 Jessica Kelsiholz SECURITY REPRESENTATIVE Work Phone: [facility] 12-20-2023 16:36-0400 Body temperature 97.81 [degF] Jessica Kelsiholz SECURITY REPRESENTATIVE Work Phone: [facility] 12-20-2023 16:36-0400 Body weight 85.73 kg Jessica Levhholz SECURITY REPRESENTATIVE Work Phone: [facility] 12-20-2023 16:36-0400 Diastolic blood pressure 72 mm[Hg] Jessica Aichholz SECURITY REPRESENTATIVE Work Phone: [facility] 12-20-2023 16:36-0400 Heart rate 80 /min Jessica Kelsiholz SECURITY REPRESENTATIVE Work Phone: [facility] 12-20-2023 16:36-0400 Respiratory rate 18 /min Jessica Kelsiholz SECURITY REPRESENTATIVE Work Phone: [facility] 12-20-2023 16:36-0400 SaO2% (BldA) [Mass fraction] 96 % Jessica Kelsiholz SECURITY REPRESENTATIVE Work Phone: [facility] 12-20-2023 16:36-0400 Systolic blood pressure 124 mm[Hg] Jessica Levhholz SECURITY REPRESENTATIVE Work Phone: [facility] 10-18-2023 13:05-0400 Body height 170.2 cm Jessica Kelsiholz SECURITY REPRESENTATIVE Work Phone: [facility] 10-18-2023 13:05-0400 Body mass index (BMI) [Ratio] 29.82 kg/m2 Jessica Kelsiholz SECURITY REPRESENTATIVE Work Phone: [facility] 10-18-2023 13:05-0400 Body temperature 97.3 [degF] Jessica Levhholz SECURITY REPRESENTATIVE Work Phone: [facility] 10-18-2023 13:05-0400 Body weight 86.36 kg Jessica Kelsiholz SECURITY REPRESENTATIVE Work Phone: [facility] 10-18-2023 13:05-0400 Diastolic blood pressure 76 mm[Hg] Jessica Kelsiholz SECURITY REPRESENTATIVE Work Phone: [facility] 10-18-2023 13:05-0400 Heart rate 82 /min Jessica Aichholz SECURITY REPRESENTATIVE Work Phone: [facility] 10-18-2023 13:05-0400 Respiratory rate 18 /min Jessica Levhholz SECURITY REPRESENTATIVE Work Phone: [facility] 10-18-2023 13:05-0400 SaO2% (BldA) [Mass fraction] 96 % Jessica Levhholz SECURITY REPRESENTATIVE Work Phone: [facility] 10-18-2023 13:05-0400 Systolic blood pressure 112 mm[Hg] Jessica Ian SECURITY REPRESENTATIVE Work Phone: [facility] 11-03-2021 15:36-0400 Blood Pressure Location LINDA MASON [facility] 11-03-2021 15:36-0400 Diastolic blood pressure 87 mm[Hg] LINDA MASON [facility] 11-03-2021 15:36-0400 Heart rate 101 /min LINDA MASON [facility] 11-03-2021 15:36-0400 Systolic blood pressure 136 mm[Hg] LINDA MASON [facility] Encounters Encounter Date Encounter Type Care Provider Facility Start: 04-04-2024 End: 04-04-2024 Clinisync Result Encounter Jessica Ian SECURITY REPRESENTATIVE Work Phone: [facility] External Department Unsolicited Start: 04-04-2024 End: 04-04-2024 Clinisync Result Encounter Jessica Ian SECURITY REPRESENTATIVE Work Phone: [facility] External Department Unsolicited Start: 03-25-2024 End: 03-25-2024 Office outpatient visit 25 minutes Jessica Sosa SECURITY REPRESENTATIVE Work Phone: [facility] Comment on above: Primary hypertension (CMS/HCC) (Primary Dx); Obstructive sleep apnea; Hypothyroidism, unspecified type (CMS/HCC); Overweight (BMI 25.0-29.9); Osteopenia, unspecified location; Anxiety and depression (CMS/HCC); Asymptomatic microscopic hematuria; Vitamin D deficiency; Mixed hyperlipidemia (CMS/HCC); Needs flu shot; Allergic rhinitis, unspecified seasonality, unspecified trigger Start: 03-25-2024 End: 03-25-2024 ambulatory JESSICA SOSA Not Available Start: 03-25-2024 End: 03-25-2024 Bamboo flowsheet Jessica Dolanaubrie SECURITY REPRESENTATIVE Work Phone: [facility] Start: 03-25-2024 End: 03-25-2024 Bamboo flowsheet Jessica Dolanaubrie SECURITY REPRESENTATIVE Work Phone: [facility] Start: 12-20-2023 End: 12-20-2023 ambulatory JESSICA IAN Not Available Start: 12-20-2023 End: 12-20-2023 Bamboo flowsheet Jessica Dolanaubrie SECURITY REPRESENTATIVE Work Phone: [facility] Start: 12-20-2023 End: 12-20-2023 Bamboo flowsheet Jessica Dolanaubrie SECURITY REPRESENTATIVE Work Phone: [facility] Start: 12-20-2023 End: 12-20-2023 Patient encounter procedure Jessica Ian SECURITY REPRESENTATIVE Work Phone: [facility] Comment on above: Encounter for subseq uent annual wellness visit (AWV) in Medicare patient (Primary Dx); Obesity (BMI 30-39.9); Hypothyroidism, unspecified type (CMS/HCC); Mixed hyperlipidemia (CMS/HCC); Anxiety and depression (CMS/HCC); Overweight (BMI 25.0-29.9); Obstructive sleep apnea; Osteopenia, unspecified location; Post-menopausal Start: 10-18-2023 End: 10-18-2023 Bamboo flowsheet Jessica Levalhajiaubrie SECURITY REPRESENTATIVE Work Phone: [facility] Start: 10-18-2023 End: 10-18-2023 Bamboo flowsheet Jessica Dolanaubrie SECURITY REPRESENTATIVE Work Phone: [facility] Start: 10-18-2023 End: 10-18-2023 Office outpatient visit 15 minutes Jessica aIn SECURITY REPRESENTATIVE Work Phone: [facility] Comment on above: Encounter for screen ing mammogram for malignant neoplasm of breast; Osteopenia, unspecified location; Anxiety and depression (CMS/HCC); Allergic rhinitis, unspecified seasonality, unspecified trigger; Vitamin D deficiency; Hypothyroidism, unspecified type ([facility]); Urinary incontinence in female; Mixed hyperlipidemia ([facility]); Obesity (BMI 30-39.9); Obstructive sleep apnea Start: 10-18-2023 End: 10-18-2023 ambulatory JESSICA AICHHOLZ Not Available Start: 07-18-2023 End: 07-18-2023 ambulatory JESSICA AICHHOLZ Not Available Start: 04-13-2023 End: 04-13-2023 ambulatory JESSICA AICHHOLZ Not Available Start: 11-09-2022 End: 11-10-2022 ambulatory LINDA MASON Facility:[facility] Start: 11-09-2022 End: 11-09-2022 Patient encounter procedure LINDA MASON [facility] Start: 06-29-2022 ambulatory SPRAYER HAND JESSICA AICHHOLZ Facil ity:[facility] Start: 05-25-2022 End: 05-26-2022 ambulatory SPR[employer] HAND JESSICA AICHHOLZ Facility:[facility] Start: 05-09-2022 End: 05-10-2022 ambulatory SPR[employer] HAND JESSICA AICHHOLZ Facility:[facility] Start: 05-02-2022 End: 05-02-2022 ambulatory SPR[employer] HAND JESSICA AICHHOLZ Facility:[facility] Start: 03-11-2022 End: 03-11-2022 ambulatory Jessica J Aichholz Work Phone: [facility] Work Phone: Start: 03-11-2022 End: 03-11-2022 Patient encounter procedure Jessica Aichholz Work Phone: [facility] Work Phone: Start: 12-08-2021 End: 12-09-2021 ambulatory SPR[employer] HAND JESSICA AICHHOLZ Facility:[facility] Start: 11-03-2021 End: 11-03-2021 Patient encounter procedure LINDA MASON [facility] Start: 08-09-2021 End: 08-10-2021 ambulatory SPRAYER HAND JESSICA SOSA Facility:[facility] Start: 06-24-2021 End: 06-25-2021 ambulatory SPR[employer] HAND JESSICA SOSA Facility: Start: 03-18-2021 End: 03-19-2021 ambulatory MD NIDHI MICHAELS Facility:[facility] Start: 01-26-2021 End: 01-26-2021 Emergency department patient visit MD NIDHI MICHAELS Facility:[facility] Start: 03-05-2019 End: 03-06-2019 Patient encounter procedure RALPH ZAVALA Facility:[facility] Start: 01-16-2017 End: 01-24-2017 Ambulatory [facility] Facility:[facility] Start: 12-12-2016 End: 12-20-2016 Ambulatory [facility] Facility:[facility] Start: 12-10-2016 End: 12-13-2016 Ambulatory [facility] Facility:[facility] Procedures Date Procedure Procedure Detail Performing Clinician Start: 04-04-2024 XR DEXA AXIAL SKELETON Jessica Ian SECURITY REPRESENTATIVE Work Phone: Start: 10-30-2023 Mammography Jessica Reji arredondo SECURITY REPRESENTATIVE Work Phone: Start: 09-27-2022 Mammography Jessica Reji carrollz SECURITY REPRESENTATIVE Work Phone: Start: 03-11-2022 Plain chest X-ray Jessica Ian Work Phone: Start: 06-27-2018 Repair of stress inc ontinence by suprapubic sling LINDA MASON Start: 10-09-2017 Cystourethroscopy an d dilation of bladder LINDA MASON Start: 02-20-2017 Colonoscopy LINDA GONZALEZ Start: 12-22-2016 Colonoscopy Jessica arredondo SECURITY REPRESENTATIVE Work Phone: Start: 06-11-2014 left synovectomy to [...] Hysterectomy LINDA MASON neck surgery 4 LINDA RAMIREZ Y Comment on above: 2009 Tarsal tunnel release AMPARO MASON Comment on above: left wrist surgery 6 LINDA KAY Comment on above: left Plan of Treatment Date Care Activity Detail Author Start: 12-22-2026 Screening for malign ant neoplasm of colon [facility] Start: 12-19-2024 Medicare Annual Well ness (AWV) Medicare Annual Wellness (AWV) [facility] Start: 10-29-2024 Screening for malign ant neoplasm of breast Mammogram [facility] Start: 04-22-2024 End: 04-22-2024 Patient encounter procedure 04/22/2024 1:20 PM EST Office Visit [facility] [address] [place] [address] Jessica Sosa NP [address] [place] [address] [facility] Start: 03-25-2024 End: 03-25-2024 Patient encounter procedure 03/25/2024 2:20 PM EST Office Visit [facility] [address] [place] [address] Jessica Sosa, KEY [address] [place] [address] Obstructive sleep apnea (Primary Dx); Hypothyroidism, unspecified type (CMS/HCC); Overweight (BMI 25.0-29.9); Osteopenia, unspecified location; Anxiety and depression (CMS/HCC); Asymptomatic microscopic hematuria; Vitamin D deficiency; Mixed hyperlipidemia (CMS/HCC) [facility] Comment on above: Obstructive sleep ap sarah (Primary Dx); Hypothyroidism, unspecified type (CMS/HCC); Overweight (BMI 25.0-29.9); Osteopenia, unspecified location; Anxiety and depression (CMS/HCC); Asymptomatic microscopic hematuria; Vitamin D deficiency; Mixed hyperlipidemia (CMS/HCC) Start: 03-25-2024 End: 03-25-2025 25-hydroxyvitamin D3 [Mass/volume] in Serum or Plasma Vitamin D 25 hydroxy Lab Routine Vitamin D deficiency Expected: 03/25/2024 (Approximate), Expires: 03/25/2025 [facility] Comment on above: Expected: 03/25/2024 (Approximate), Expires: 03/25/2025 Start: 03-25-2024 End: 03-25-2025 CBC W Auto Differential panel - Blood CBC and differential Lab Routine Obstructive sleep apnea Hypothyroidism, unspecified type (CMS/HCC) Asymptomatic microscopic hematuria Expected: 03/25/2024 (Approximate), Expires: 03/25/2025 [facility] Work Phone: Comment on above: Expected: 03/25/2024 (Approximate), Expires: 03/25/2025 Start: 03-25-2024 End: 03-25-2025 Comprehensive metabolic 2000 panel - Serum or Plasma Comprehensive metabolic panel Lab Routine Hypothyroidism, unspecified type (CMS/HCC) Overweight (BMI 25.0-29.9) Osteopenia, unspecified location Expected: 03/25/2024 (Approximate), Expires: 03/25/2025 [facility] Comment on above: Expected: 03/25/2024 (Approximate), Expires: 03/25/2025 Start: 03-25-2024 End: 03-25-2025 Lipid 1996 panel - Serum or Plasma Lipid panel Lab Routine Mixed hyperlipidemia ([facility]) Expected: 03/25/2024 (Approximate), Expires: 03/25/2025 [facility] Comment on above: Expected: 03/25/2024 (Approximate), Expires: 03/25/2025 Start: 03-25-2024 End: 03-25-2025 Thyrotropin [Units/volume] in Serum or Plasma TSH Lab Routine Hypothyroidism, unspecified type ([facility]) Expected: 03/25/2024 (Approximate), Expires: 03/25/2025 [facility] Comment on above: Expected: 03/25/2024 (Approximate), Expires: 03/25/2025 Start: 03-25-2024 End: 03-25-2025 Thyroxine (T4) free [Mass/volume] in Serum or Plasma T4, free Lab Routine Hypothyroidism, unspecified type ([facility]) Expected: 03/25/2024 (Approximate), Expires: 03/25/2025 [facility] 10-22-2023 Influenza vaccination Influenza Vacc ine (#1) [facility] Start: 10-18-2023 End: 12-17-2024 MG Breast - bilateral Screening Bilateral screening mammogram Imaging Routine Encounter for screening mammogram for malignant neoplasm of breast Expected: 10/18/2023 (Approximate), Expires: 12/17/2024 [facility] Work Phone: Comment on above: Expected: 10/18/2023 (Approximate), Expires: 12/17/2024 Start: 09-28-2023 Screening for malign ant neoplasm of breast Mammogram [facility] Start: 1955 Medicare Annual Well ness (AWV) Medicare Annual Wellness (AWV) [facility] Start: 1955 Screening for malign ant neoplasm of colon [facility] Immunizations Immunization Date Immunization Notes Care Provider Xena brewer 03-25-2024 Seasonal trivalent influenza vaccine, adjuvanted, preservative free Jessica Sosa SECURITY REPRESENTATIVE Work Phone: [facility] 01-04-2023 Influenza, High-dose Seasonal, Quadrivalent, Preservative Free Jessica Sosa SECURITY REPRESENTATIVE Work Phone: [facility] 01-04-2023 influenza virus vacc ine, unspecified formulation Jessica Sosa SECURITY REPRESENTATIVE Work Phone: [facility] Payers Date Payer Category Payer Medicare [employer] [place] [id number] 2022-Present [address] [place] [address] [id number] 2022 Medicare (Managed Care) [facility] [employer] [id number] 2022 Private Health Insurance [id number] 2022 Self-pay 2021 Unknown [id number] 2021 Unknown 2019 Medicaid 2017 Unknown [id number] 2016 Medicare [id number] 1959 Private Health Insurance [id number] 1959 Unknown [id number] 1954 Unknown [id number] 2..840.1.328797.3.579.2. 647 1954 Unknown [id number] 2.840.1.795813.3.579.2. 196 1954 Unknown [id number] .16840.1.443766.3.579.2. 196 1954 Unknown [id number] 2.16.840.1.443380.3.579.2. 593 1954 Unknown [id number] 2.16.840.1.494358.3.579.2. 593 1954 Unknown [id number] 2.16.840.1.635617.3.579.2. 593 1954 Unknown [id number] 2.16.840.1.367342.3.579.2. 593 1954 Unknown [id number] 2.16.840.1.172708.3.579.2. 593 1954 Unknown [id number] 2.16.840.1.673328.3.579.2. 593 1954 Unknown [id number] 2.16.840.1.463961.3.579.2. 593 1954 Unknown [id number] 2.16.840.1.856533.3.579.2. 727 1954 Unknown [id number] 2.16.840.1.140809.3.579.2. 1259 1954 Unknown [id number] 2.16.840.1.404197.3.579.2. 1259 1954 Unknown [id number] 2.16.840.1.807446.3.579.2. 1259 1954 Unknown [id number] 2.16.840.1.911622.3.579.2. 1259 1954 Unknown [id number] 2.16.840.1.444541.3.579.2. 1259 Medicaid [id number] Private Health Insurance [facility] [id number] Unknown [id number] 2.16.840.1.281073.3.579.2. 531 Social History Date Type Detail Facility Start: 11-03-2021 End: 01-31-2023 Tobacco smoking status Never smoked tobacco (finding) [facility] Start: 03-28-2023 End: 12-20-2023 Sex Assigned At Female [facility] Start: 1955 Sex Assigned At Female [facility] Start: 01-31-2023 Tobacco use and exposure Smokeless tobacco non-user [facility] Start: 10-18-2023 End: 03-25-2024 Alcoholic beverage intake [...] 11-03-2021 Functional Status N/A [facility] Clinical Notes 01-26-2021 to 03-25-2024 Jessica Sosa NP - 03/25/2024 2:59 PM ESTJessica Sosa, SECURITY REPRESENTATIVE - 03/25/2024 2:43 PM Farrah Sosa, KEY [...] 04/13/2023 Allergic rhinitis 04/13/2023 Anxiety and depression ([facility]) 04/13/2023 Asymptomatic microscopic hematuria 04/13/2023 Bronchitis [...] Relevant Orders Flu vaccine, trivalent, adjuvanted, PF (TSC549) (Fluad trivalent single dose syringe) Associated Problem(s): [...] toleration of things documented in this encounter [facility] 03-25-2024 Instructions Jessica Sosa NP - 03/25/2024 2:20 PM EST For blood pressure: start losartan 25mg pill daily. Get labs checked in 3 weeks Low sodium diet Bone Density scan at [facility] documented in this encounter [facility] 12-20-2023 History of Present illness Narrative Associated [...] a yearly basis documented in this encounter [facility] 10-18-2023 History of Present illness Narrative Associated [...] from company on getting machine. It is [employer] [phone]. I spoke with Loraine at [facility], she also does not [...] Bilateral screening mammogram documented in this encounter [place] [address]-20-2022 Note PROCEDURE: XR HIP RT 2 3V WO PELVIS HISTORY: Pain in right hip joint , acute; no known injury COMPARISON: None. FINDINGS: BONES:No fracture, acute abnormality, or significant arthropathy. SOFT TISSUES:No visible soft tissue swelling. EFFUSION:None visible. OTHER: Negative. IMPRESSION: 1. No acute bone abnormality or significant degenerative joint disease. Electronically authenticated by: JEROME AYALA Date: 2021-12-09 06:48 [facility] 11-03-2021 Hospital Discharge instructions Patient Education 11/03/2021 [...] fried and sweet foods. General instructions Take bnrp-svy-kylaqyj and prescription medicines only as told by [...] 12/03/2009 Document Revised: 05/30/2019 Document Reviewed: 02/22/2018 [employer] Patient Education 2020 [employer]. Follow Up Care 10/15/2021 09:20:30 With:LINDA MASON PA-C, URL Address: [address] [place] [address] When:1 year [facility] 01-26-2021 Note Procedure: Portable AP view [...] Signed, Electronically Signed in Other Vendor System) [facility] Evaluation + Plan note Future Appointments Appointment Date:11/09/2022 02:00:00 PM Scheduled Provider:LINDA MASON PA-C Location:[facility] Appointment Type:URO Office Visit [facility] Evaluation note No assessment inform ation available [facility] Work Phone: Evaluation note Diagnosis Mild episode [...] status (age-related) (natural) documented in this encounter [facility] HealthcareEvaluation note* Diagnosis Encounter for screening mammogram [...] Anxiety and depression (CMS/HCC)- Primary Primary hypertension (CMS/[facility]) Unspecified essential hypertension Asymptomatic microscopic hematuria [...] available for this section [facility] Hospital Discharge instructions No data available for this section [facility] progress note No data available for this section [facility] Summary Purpose Family History No Family History Records FoundNo Family History Records FoundNo Family History Records FoundNo Family History Records FoundNo Family History Records FoundNo Family History Records FoundNo Family History Records FoundNo Family History Records Found Advance Directives Advance Directive Response Recorded Date/ Time Advance Directives No March 11, 2022 10:04am Hospital Course Note MR#: [id number] [facility] Pt. Name: Claudette Ross Admitted: 03/05/2019 [...] and she was transported via EMS to [facility]. In [place], an EKG was done that showed no significant changes and initial t (more content not included)... Chief Complaint and Reason for Visit Chief Complaint m20.11 Additional Source Comments INFORMATION SOURCE (unrecogn ized section and content) DATE CREATED AUTHOR 08/08/2017 [facility] DATE CREATED AUTHOR AUTHOR'S ORGANIZ ATION 03/19/2019 [facility] DATE CREATED AUTHOR AUTHOR'S ORGANIZ ATION 03/19/2021 [facility] DATE CREATED AUTHOR AUTHOR'S ORGANIZ ATION 04/06/2021 [facility] DATE CREATED AUTHOR AUTHOR'S ORGANIZ ATION 03/26/2022 [facility] DATE CREATED AUTHOR AUTHOR'S ORGANIZ ATION 06/22/2022 [facility] DATE CREATED AUTHOR AUTHOR'S ORGANIZ ATION 11/11/2022 [facility] DATE CREATED AUTHOR AUTHOR'S ORGANIZ ATION 03/26/2024 [facility] Care Team (unrecognized sect ion and content) Team Status: Inactive Member Role Status Dates Jessica Sosa Primary Care Provider Active Yordan Batres DPM Attending Provider Active Team Status: Active Member Role Status Dates Jessica Sosa Primary Care Provider Active Acute Care Occupational Therapist Relationship Specialty Start Date End Date Pop Carreon MD [address] [place] [phone] PCP - General Family Medicine 04/13/23 Jessica Sosa NP [address] [place] [phone] Nurse Practitioner Family Medicine 04/13/23 Acute Care Occupational Therapist Relationship Specialty Start Date End Date Pop Carreon MD [address] [place] [phone] PCP - General Family Medicine 04/13/23 Jessica Sosa NP [address] [place] [phone] Nurse Practitioner Family Medicine 04/13/23 Acute Care Occupational Therapist Relationship Specialty Start Date End Date Pop Carreon MD [address] [place] [phone] PCP - General Family Medicine 04/13/23 Jessica Sosa NP [address] [place] [phone] Nurse Practitioner Family Medicine 04/13/23 Acute Care Occupational Therapist Relationship Specialty Start Date End Date Pop Carreon MD [address] [place] [phone] PCP - General Family Medicine 04/13/23 Jessica Sosa NP [address] [place] [address] Nurse Practitioner Family Medicine 04/13/23 Acute Care Occupational Therapist Relationship Specialty Start Date End Date Pop Carreon MD [address] [place] [phone] PCP - General Family Medicine 04/13/23 Jessica Sosa NP [address] [place] [phone] Nurse Practitioner Family Medicine 04/13/23 Meghana Canesco DO [address] [place] [address] Referring Physician Neurology 03/15/24 Acute Care Occupational Therapist Relationship Specialty Start Date End Date Pop Carreon MD [address] [place] [phone] PCP - General Family Medicine 04/13/23 Jessica Sosa NP [address] [place] [phone] Nurse Practitioner Family Medicine 04/13/23 Meghana Canseco DO [address] [place] [address] Referring Physician Neurology 03/15/24 Acute Care Occupational Therapist Relationship Specialty Start Date End Date Pop Carreon MD [address] [place] [phone] PCP - General Family Medicine 04/13/23 Jessica Sosa NP [address] [place] [phone] Nurse Practitioner Family Medicine 04/13/23 Jason CansecoleDO [address] [place] [address] Referring Physician Neurology 03/15/24 Goals (unrecognized section [...] BE BASED ON THE PRIMARY CLINICAL RECORDS. [employer]. provides no warranty or guarantee of the accuracy or completeness of information in this document.
[2024-04-12] MEDS: ACETAMINOPHEN 325 MG TABLET 650 MG PO (18:45)
[2024-04-12 20:16] VITALS: BP 136/86; PULSE 80; O2SAT 99
== END 2024-04-12 20:17 | disposition home or self-care (01) ==
PROVIDERS: Emergency Provider Student in an Organized Health Care Education/Training Program; PCP Nurse Practitioner
DX: S60.221A Contusion of right hand, initial encounter (principal); W22.09XA Striking against other stationary object, initial encounter
CPT/HCPCS: 73130; 99283

== ENCOUNTER 2024-04-15 08:28 | Outpatient (OUT) | payer MEDICARE, MEDICAID, SELFPAY ==
[2024-04-15 08:49] LABS: Bilirubin Urine NEGATIVE (NEGATIVE); Blood Urine SMALL (NEGATIVE); Clarity Urine CLEAR (CLEAR); Color Urine LT. YELLOW (YELLOW); Glucose Urine UA NEGATIVE (NEGATIVE); Ketones Urine TRACE mg/dL (NEGATIVE); Leukocyte Esterase Urine MODERATE (NEGATIVE); Nitrite Urine NEGATIVE (NEGATIVE); Protein Urine NEGATIVE (NEG/TRACE); Specific Gravity Urine 1.025 (1.005-1.025)
[2024-04-15 08:50] LABS: Urine Microscopic Indicated YES
[2024-04-15 08:56] LABS: Basophils Percent Auto 0.6 % (0.2-2.0); Eosinophils Absolute Auto 0.1 10^3/uL (0.0-0.7); Eosinophils Percent Auto 2.4 % (0.9-7.0); Hematocrit 38.8 % (36.0-48.0); Hemoglobin 13.1 g/dL (12.0-16.0); Immature Granulocytes Abs Auto 0.01 10^3/uL (0.00-0.03); Immature Granulocytes Pct Auto 0.2 % (0.0-0.5); Lymphocytes Absolute Auto 1.7 10^3/uL (1.2-3.8); Lymphocytes Percent Auto 30.4 % (20.5-60.0); Mean Corpuscular HGB Conc 33.8 g/dL (29.9-35.2); Mean Corpuscular Hemoglobin 30.5 pg (26.7-34.0); Mean Corpuscular Volume 90.2 fL (81.0-99.0); Mean Platelet Volume 9.3 fL (9.5-13.5); Monocytes Absolute Auto 0.5 10^3/uL (0.3-0.8); Monocytes Percent Auto 9.9 % (1.7-12.0); Neutrophils Absolute Auto 3.1 10^3/uL (1.4-6.5); Neutrophils Percent Auto 56.5 % (43.0-75.0); Platelet Count 193 10^3/uL (150-450); Red Cell Distribution Width 12.8 % (11.0-15.0); White Blood Count 5.4 10^3/uL (4.0-11.0)
[2024-04-15 09:17] LABS: Bacteria Urine TRACE #/HPF (NONE SEEN); Cast Seen? NONE SEEN #/LPF (NONE SEEN); Crystals Seen? None Seen #/HPF (None Seen); Mucus Urine TRACE (NONE SEEN); Squamous Epithelial Cell Urine FEW #/LPF (NONE/RARE)
[2024-04-15 10:02] LABS: Alanine Aminotransferase 20 U/L (14-59); Albumin Globulin Ratio 1.1; Albumin Level 3.5 g/dL (3.4-5.0); Alkaline Phosphatase 102 U/L (46-116); Anion Gap 12.1; Aspartate Amino Transferase 13 U/L (15-37); BUN Creatinine Ratio 14.6; Bilirubin Total 0.3 mg/dL (0.2-1.0); Calcium 9.3 mg/dL (8.5-10.1); Carbon Dioxide 31.2 mmol/L (21.0-32.0); Chloride 105 mmol/L (98-107); Chol HDL Ratio 3.8; Cholesterol 191 mg/dL (<=200); Estimated GFR (African America >60 (>=60 mL/min/1.73m^2); Estimated GFR (Non-African Ame >60 (>=60 mL/min/1.73m^2); Globulin 3.2 g/dL; Glucose 94 mg/dL (74-106); HDL Cholesterol 50 mg/dL (40-60); LDL Cholesterol Calculated 118.6 mg/dL; Potassium 4.3 mmol/L (3.5-5.1); Sodium 144 mmol/L (136-145); Thyroid Stimulating Hormone 3.281 uIU/mL (0.358-3.740); Total Protein 6.7 g/dL (6.4-8.2); Triglycerides 112 mg/dL (<=150); VLDL CHOLESTEROL 22.4 mg/dL
[2024-04-15 10:52] LABS: Free T4 0.97 ng/dL (0.76-1.46)
== END 2024-04-15 08:29 | disposition home or self-care (01) ==
LOC: LAB 08:29
PROVIDERS: PCP Nurse Practitioner; Visit Provider Nurse Practitioner
DX: G47.33 Obstructive sleep apnea (adult) (pediatric) (principal); E03.9 Hypothyroidism, unspecified; R31.21 Asymptomatic microscopic hematuria; E66.3 Overweight; M85.80 Other specified disorders of bone density and structure, unspecified site; E78.2 Mixed hyperlipidemia; E55.9 Vitamin D deficiency, unspecified
CPT/HCPCS: 36415; 80053; 80061; 81001; 82306; 84439; 84443; 85025

== ENCOUNTER 2024-11-11 09:52 | Outpatient (OUT) | payer MEDICARE, MEDICAID, SELFPAY ==
--- OUTSIDE RECORDS SUMMARY | 2024-11-11 09:55 | XMS_ITS | Clinical Summary ---
Author Organization [facility] Address [address] [place] [address] Care Team Providers Care Computer Engineer Name Role Phone Pop Carreon MD Primary Care Provider [phone] Jessica Sosa MANAGER MANAGED CARE Unavailable [phone] Meghana Canseco DO Unavailable [phone] Allergies Active Allergy Reactions Criticality Noted Date Comments Codeine Rash Low 12/22/2016 Hydrocodone Rash Low 01/27/2023 Hydrocodone-Acetaminophen 12/28/2022 Vicodin Oxycodone Rash Low 01/27/2023 Oxycodone-Acetaminophen Rash Low 12/22/2016 But can take regular tylenol okay Sulfamethoxazole-Trimethopri m Hives 01/27/2023 Medications naproxen (Naprosyn) 500 MG tablet Take 500 mg by mouth 2 (two) times a day as needed 5 Active alendronate (Fosamax) 70 MG tabletIndications:O steopenia, unspecified location Take 1 tablet (70 mg) by mouth every 7 (seven) days Take in the morning with a full glass of water, on an empty stomach, and do not take anything else by mouth or lie down for the next 30 min. 12 tablet 1 5 Active amitriptyline (Elavil) 10 MG tabletIndications:P rimary insomnia Start with 1 pill at bedtime, after 7 days if not effective, then can increase to 2 pills 60 tablet 1 5 Active ARIPiprazole (Abilify) 5 MG tabletIndications:M ild episode of recurrent major depressive disorder Take 1 tablet (5 mg) by mouth Daily 90 tablet 1 5 Active busPIRone (Buspar) 10 MG tabletIndications:A nxiety and depression Take 1 tablet (10 mg) by mouth every 12 (twelve) hours 180 tablet 1 5 Active cetirizine (ZyrTEC) 10 MG tabletIndications:A llergic rhinitis, unspecified seasonality, unspecified trigger Take 1 tablet (10 mg) by mouth Daily 90 tablet 1 5 Active levothyroxine (Synthroid, Levoxyl) 75 MCG tabletIndications:H ypothyroidism, unspecified type Take 1 tablet (75 mcg) by mouth in the morning. Take before meals. 90 tablet 1 5 Active losartan (Cozaar) 25 MG tabletIndications:P rimary hypertension Take 1 tablet (25 mg) by mouth Daily 90 tablet 1 5 Active montelukast (Singulair) 10 MG tabletIndications:A llergic rhinitis, unspecified seasonality, unspecified trigger Take 1 tablet (10 mg) by mouth at bedtime 90 tablet 1 5 Active sertraline (Zoloft) 100 MG tabletIndications:G eneralized Anxiety Disorder,Major Depressive Disorder Take 1 tablet (100 mg) by mouth in the morning and 1 tablet (100 mg) before bedtime. 180 tablet 1 5 Active simvastatin (Zocor) 20 MG tabletIndications:M ixed hyperlipidemia Take 1 tablet (20 mg) by mouth at bedtime 90 tablet 1 5 Active Active Problems Problem Noted Date Diagnosed Date Candidiasis 08/05/2024 Needs flu shot 03/25/2024 Assessment & Plan (03/25/2024 2:43 PM EST): Consent signed VIS given Overweight (BMI 25.0-29.9) 12/20/2023 Encounter for subsequent [facility] wellness visit (AWV) in Medicare patient 12/20/2023 Assessment & Plan (12/20/2023 5:10 PM EDT): I have reviewed Ht/Wt/BMI, I have reviewed [...] office for wellness on a yearly basis Encounter for screening mamm ogram for malignant neoplasm of breast 10/18/2023 Anxiety and depression 04/13/2023 Overview (03/25/2024): 03/25/24: LATA 7= 1, PHQ 9=5 Assessment & Plan (08/05/2024 6:58 AM EDT): Current meds: abilify, buspar, sertaline and elavil Recent loss of prior significant other, as well as ex Assessment & Plan (06/03/2024 6:49 AM EDT): Current meds: abilify, buspar, sertaline and elavil Assessment & Plan (04/22/2024 1:21 PM EST): Current meds: abilify, buspar, sertaline and trazodone Does not feel her trazodone is helping her to sleep Assessment & Plan (03/25/2024 2:48 PM EST): Current meds: abilify, buspar, sertaline and trazodone PHQ 9= 5 LATA 7=1 Assessment & Plan (12/20/2023 5:00 PM EDT): No med dose changes Assessment & Plan (10/18/2023 1:34 PM EDT): Stable no med dose change Assessment & Plan (07/18/2023 10:29 AM EDT): Doing well on current meds Assessment & Plan (04/13/2023 10:36 AM EST): Doing well on current dose, and check labs Allergic rhinitis 04/13/2023 Assessment & Plan (04/13/2023 10:37 AM EST): Refill meds Post-menopausal 04/13/2023 Seasonal allergies 04/13/2023 Spinal stenosis, lumbar 04/13/2023 Obstructive sleep apnea 04/13/2023 Overview (08/22/2023): Sleep study 08/07/23; severe sleep apnea with a AHI of 28 CPAP titration of 8cm H2O Assessment & Plan (06/03/2024 1:24 PM EDT): You have a diagnosis of obstructive sleep apnea. It is recommended that you wear your PAP device any time while in bed sleeping. Not using the PAP device can increase your risk of elevated/uncontrolled high blood pressure, atrial fibrillation, heart attack, stroke, or sudden . Compliance with PAP: no, they took her machine away d/t compliance, she stated that she discussed with Dr Canseco that she felt it was suffocating her, no further fu appts Assessment & Plan (04/22/2024 1:22 PM EST): You have a diagnosis of obstructive sleep [...] is not having good toleration of things Assessment & Plan (03/25/2024 2:52 PM EST): You have a diagnosis of obstructive sleep [...] is not having good toleration of things Assessment & Plan (12/20/2023 5:05 PM EDT): Picked up new PAP machine today Assessment & Plan (10/18/2023 1:35 PM EDT): Still with fatigue and waiting for PAP machine Pt given number to call office to see what is hold up Assessment & Plan (07/18/2023 10:19 AM EDT): Does not wear her PAP machine doesn't work right Does snore, has fatigue Will order retitration study Insomnia 04/13/2023 Assessment & Plan (08/05/2024 6:59 AM EDT): Current med: amitriptyline Assessment & Plan (06/03/2024 1:24 PM EDT): At last appt stopped trazodone, and has been prescribed elavil Sleeping well with 10mg dose, no changes Assessment & Plan (04/22/2024 1:38 PM EST): Has ANITA, is in need of an updated sleep study Is currently taking trazodone at 100mg daily Discontinue trazodone, will trial amitriptyline 10mg Start with 1 pill at HS, if after 7 days not helping, then increase to 2 pills at HS I did discuss symptoms of worsening depression if this happens contact office Pulmonary nodule 04/13/2023 Hypertension 04/13/2023 Assessment & Plan (08/05/2024 6:57 AM EDT): Please check blood pressure daily and record DASH diet Limit caffeine Take medication as directed Contact office if chest pain, pressure, dizziness, shortness of breath, swelling legs Recommend slow position changes Current med: losartan Assessment & Plan (06/03/2024 6:48 AM EDT): Please check blood pressure daily and record DASH diet Limit caffeine Take medication as directed Contact office if chest pain, pressure, dizziness, shortness of breath, swelling legs Recommend slow position changes Current med: losartan Assessment & Plan (04/22/2024 1:20 PM EST): Please check blood pressure daily and record DASH diet Limit caffeine Take medication as directed Contact office if chest pain, pressure, dizziness, shortness of breath, swelling legs Recommend slow position changes At last appt started losartan at 25mg daily, significant improvement Will cont losartan at 25mg daily Assessment & Plan (03/25/2024 2:59 PM EST): Please check blood pressure daily and record DASH diet Limit caffeine Take medication as directed Contact office if chest pain, pressure, dizziness, shortness of breath, swelling legs Recommend slow position changes Will start losartan at 25mg daily Fu in 4 weeks for recheck 1 week prior to appt get labs completed Assessment & Plan (07/18/2023 10:28 AM EDT): Stable Assessment & Plan (04/13/2023 10:35 AM EST): Stable no changes in meds Check labs Diverticulosis 04/13/2023 Urinary incontinence in female 04/13/2023 Assessment & Plan (07/18/2023 10:28 AM EDT): Cont current meds Asymptomatic microscopic hematuria 04/13/2023 Assessment & Plan (04/13/2023 10:35 AM EST): Recheck urine Osteopenia 04/13/2023 Overview (04/03/2024): DEXA scan 06/24/2021: early osteopenia 04/03/24: osteopenia -1.2 Assessment & Plan (06/03/2024 1:25 PM EDT): Refill foxamax Assessment & Plan (03/25/2024 7:01 AM EST): DEXA 06/24/2021 Current med: fosamax Assessment & Plan (12/20/2023 5:07 PM EDT): Continue w fosamax, will get an updated DEXA scan Assessment & Plan (04/13/2023 10:35 AM EST): Not due for DEXA quite yet, will check labs and refill meds DDD (degenerative disc disease), cervical 2023 Vitamin D deficiency 04/13/2023 Assessment & Plan (04/13/2023 10:35 AM EST): Check labs Hypothyroidism 04/13/2023 Assessment & Plan (08/05/2024 6:58 AM EDT): Current meds: levothyroxine Check labs yearly and prn dose changes, or changes in symptoms Assessment & Plan (06/03/2024 6:48 AM EDT): Current meds: levothyroxine Check labs yearly and prn dose changes, or changes in symptoms Assessment & Plan (03/25/2024 7:00 AM EST): Current medication : levothyroxine Check labs yearly and prn dose changes or changes in symptms Assessment & Plan (12/20/2023 5:00 PM EDT): Continue current meds Assessment & Plan (04/13/2023 10:36 AM EST): Check labs, no hypo/hyper symptoms at this time Cont current dose meds Skin candidiasis 04/13/2023 Assessment & Plan (07/18/2023 10:29 AM EDT): No improvement with use of nystatin Will trial lotrisone cream Fu if not better Assessment & Plan (04/13/2023 10:40 AM EST): Nystatin BID for 7-10 days call office if note better Mixed hyperlipidemia 01/31/2023 Assessment & Plan (08/05/2024 6:58 AM EDT): On statin Check labs yearly and prn dose changes Assessment & Plan (03/25/2024 7:06 AM EST): On statin Check labs yearly and prn dose changes Assessment & Plan (04/13/2023 10:36 AM EST): Continue statin Check labs Mild episode of recurrent major depressive disor jose 01/31/2023 Assessment & Plan (06/03/2024 1:26 PM EDT): At this point, possible depression leading the fatigue situation Does not want to do her house chores, or doing things that bring her rianna Will increase aripiprazole to 5mg fu in 8 weeks Assessment & Plan (12/20/2023 5:00 PM EDT): Continue statin Assessment & Plan (01/31/2023 11:51 AM EST): Would like to continue w current dose of abilify as well as sertraline Fu in 8 weeks for a recheck Acquired hallux valgus 01/27/2023 Contracture, right ankle 01/27/2023 Dupuytren's contracture 01/27/2023 Dupuytren's disease of palm 01/27/2023 Facet arthritis of lumbar region 01/27/2023 Bilateral carpal tunnel syndrome 01/27/2023 Peripheral venous insufficiency 01/27/2023 Ulnar neuropathy of right upper extremity 2022 Resolved Problems Problem Noted Date Diagnosed Date Resolved Date Chest pain 04/13/2023 04/13/2023 Hyperlipidemia 04/13/2023 12/20/2023 Insect sting 04/13/2023 04/13/2023 Lumbar radiculopathy, acute 04/13/2023 04/13/2023 Abdominal pain 04/13/2023 04/13/2023 Bronchitis 04/13/2023 04/13/2023 Dyspnea 04/13/2023 04/13/2023 Wrist fracture 04/13/2023 04/13/2023 Tennis elbow 04/13/2023 04/13/2023 Obesity (BMI 30-39.9) 01/31/20232023 Class 1 obesity due to exces s calories without serious comorbidity in adult 01/31/2023 Immunizations Immunization Administration Dates Next Due Influenza, High-dose Seasona l, Quadrivalent, Preservative Free 01/04/2023 Influenza, trivalent, adjuvanted 03/25/2024 Family History Medical History Relation Name Comments Heart disease Father Pancreatic cancer Mother Melanoma Neg Hx Relation Name Status Comments Father Mother Social History Tobacco Use Types Packs/Day Years Used Date Smoking Tobacco: Never Passive Smoke Exposure: Never Smokeless Tobacco: Never Tobacco Cessation:Counseling Given: Not Answered Alcohol Use Standard Drinks/Week Comments Never 0 (1 standard drink = 0.6 oz pure alcohol) caffeine yes type:tea 1cup daily Humiliation, Afraid, Rape, and Kick questionnair e Answer Date Recorded Within the last year, have y ou been afraid of your partner or ex-partner? No 03/28/2023 Within the last year, have y ou been humiliated or emotionally abused in other ways by your partner or ex-partner? No Within the last year, have y ou been kicked, hit, slapped, or otherwise physically hurt by your partner or ex-partner? No 03/28/2023 Within the last year, have y ou been raped or forced to have any kind of sexual activity by your partner or ex-partner? No 03/28/2023 Social Connection and Isolat ion Panel [NHANES] Answer Date Recorded In a typical week, how many times do you talk on the phone with family, friends, or neighbors? More than three times a week 03/28/2023 How often do you get togethe r with friends or relatives? Never 03/28/2023 How often do you attend chur or yarsanism services? 1 to 4 times per year 03/28/2023 Do you belong to any clubs o r organizations such as presybeterian groups, unions, fraternal or athletic groups, or school groups? No 03/28/2023 How often do you attend meet ings of the clubs or organizations you belong to? Never 03/28/2023 Are you , , di vorced, , never , or living with a partner? 03/28/2023 AUDIT-C Answer Date Recorded Q1: How often do you have a drink containing alcohol? Never 03/28/2023 Q2: How many drinks containi ng alcohol do you have on a typical day when you are drinking? Patient does not drink Q3: How often do you have si x or more drinks on one occasion? Never 03/28/2023 Overall Financial Resource Strain (CARDIA) Answe r Date Recorded How hard is it for you to pa y for the very basics like food, housing, medical care, and heating? Not very hard 03/28/2023 PHQ-2 Answer Date Recorded Patient Health Questionnaire-2 Score 0 12/20/2023 [facility] - Occupational Stress Questionnaire Answer Date Recorded Do you feel stress - tense, restless, nervous, or anxious, or unable to sleep at night because your mind is troubled all the time - these days? Only a little 03/28/2023 Exercise Vital Sign Answer Date Recorde d Days of Exercise per Week Not on file 2023 On average, how many minutes do you engage in exercise at this level? 20 min 03/28/2023 Hunger Vital Sign Answer Date Recorded Within the past 12 months, y ou worried that your food would run out before you got the money to buy more. Never true Within the past 12 months, t he food you bought just didn't last and you didn't have money to get more. Sometimes true 07/2023 PRAPARE - Transportation Answer Date Re corded In the past 12 months, has l ack of transportation kept you from medical appointments or from getting medications? Yes 07/2023 In the past 12 months, has l ack of transportation kept you from meetings, work, or from getting things needed for daily living? No 03/28/2023 Housing Stability Vital Sign Answer Irvin e Recorded In the last 12 months, was t here a time when you were not able to pay the mortgage or rent on time? Yes 03/28/2023 [address] of [address] Lived in the Last Year Not on f ile 03/28/2023 In the last 12 months, was t here a time when you did not have a steady place to sleep or slept in a half-way (including now)? No 03/28/2023 Comments Unknown Sex and Gender Information Value Date Recorded Sex Assigned at Not on file Legal Sex Female 8:33 PM EDT Gender Identity Not on file Sexual Orientation Not on file Last Filed Vital Signs Vital Sign Reading Time Taken Comments Blood Pressure 130/80 08/05/2024 1:17 PM EDT Pulse 81 08/05/2024 1:17 PM EDT Temperature 36.9 C (98.5 F) 08/05/2024 1:17 PM EDT Respiratory Rate 18 08/05/2024 1:17 PM EDT Oxygen Saturation 96% 08/05/2024 1:17 PM EDT Inhaled Oxygen Concentration - - Weight 87.3 kg (192 lb 6.4 oz) 08/05/2024 1:17 P M EDT Height 162.6 cm (5' 4 ) 03/25/2024 2:26 PM EST Body Mass Index 33.03 03/25/2024 2:26 PM EST Plan of Treatment Health Maintenance Due Date Last Done Comments CT Colonography 1954 FIT-DNA 1954 FIT 1954 FOBT 1955 Sigmoidoscopy 1954 Influenza Vaccine (#1) 2024 03/25/2024, 2022 Mammogram 10/29/2024 10/30/2023, 0907/2023, 09/27/2022 Medicare Annual Wellness (AWV) 12/19/2024 12/20/2023 Colonoscopy 12/22/2026 12/22/2016 Colorectal Cancer Screening 12/22/2026 Pneumococcal Vaccine: 65+ Years Completed 2 Procedures Procedure Name Priority Date/Time Associated Diagnosis Comments BI MAMMOGRAM SCREENING TOMOSYNTHESIS BILATERAL Routine 10/30/2023 10:04 AM EDT from Last 3 Months or Most Recently Relevant to Health Maintenance Results * Bilateral screening mammogram with tomosynthesis (10/30/2023 10:04 AM EDT) Anatomical Region Laterality Modality Breast Bilateral Mammography Jessica Sosa MANAGER MANAGED CARE IMG BI PROCEDURES Final Result from Last 3 Months or Most Recently Relevant to Health Maintenance Insurance MEDICAID [place] [employer] MEDICARE Care Teams Computer Engineer Relationship Specialty Start Date End Date Pop Carreon MD PCP - General Family Medicine 04/13/23 Jessica Sosa NP Nurse Practitioner Family Medicine 04/13/23 Meghana Canseco DO [address] [place] [address] Referring Physician Neurology 03/15/24
--- OUTSIDE RECORDS SUMMARY | 2024-11-11 09:55 | XMS_ITS | Encounter Summary ---
Author Organization [facility] Address [address] [place] [address] Care Team Providers Care Model Making Supervisor Name Role Phone Pop Carreon MD Primary Care Provider [phone] Jessica Sosa TRIM INSTALLER Unavailable [phone] Meghana Canseco DO Unavailable [phone] Encounter Details Date Type Department Care Team (Late st Contact Info) Description 10/30/2023 Orders Only [facility] [address] [place] [address] Jessica Sosa, [place] [address] [place] [address] Social History Tobacco Use Types Packs/Day Years Used Date Smoking Tobacco: Never Passive Smoke Exposure: Never Smokeless Tobacco: Never Alcohol Use Standard Drinks/Week Comments Never 0 [...] 03/28/2023 How often do you attend chur ch or bahai services? 1 to 4 times per year 03/28/2023 Do you belong to any clubs o r organizations such as scientology groups, unions, fraternal or athletic groups, or [...] Date Recorded Patient Health Questionnaire-2 Score 0 07/18/2023 [facility] - Occupational Stress Questionnaire Answer Date Recorded [...] place to sleep or slept in a snf (including now)? No 03/28/2023 Comments Unknown Sex and Gender Information Value Date Recorded Sex Assigned at Not on file Legal Sex Female 8:33 PM EDT Gender Identity Not on file Sexual Orientation Not on file documented as of this encounter Plan of Treatment Not on file documented as of this encounter Procedures Procedure Name Priority Date/Time Associated Diagnosis Comments BI MAMMOGRAM SCREENING TOMOSYNTHESIS BILATERAL Routine 10/30/2023 10:04 AM EDT documented in this encounter Results * Bilateral screening mammogram with tomosynthesis (10/30/2023 10:04 AM EDT) Anatomical Region Laterality Modality Breast Bilateral Mammography Jessica Sosa NP IMG BI PROCEDURES Final Result documented in this encounter Visit Diagnoses Not on filedocumented in this encounter Care Teams Model Making Supervisor Relationship Specialty Start Date End Date Pop Carreon MD PCP - General Family Medicine 04/13/23 Jessica Sosa NP Nurse Practitioner Family Medicine 04/13/23 Meghana Canseco DO [address] [place] [address] Referring Physician Neurology 03/15/24 documented as of this encounter
--- OUTSIDE RECORDS SUMMARY | 2024-11-11 09:55 | XMS_ITS | Encounter Summary ---
Author Organization [facility] Address [address] [place] [address] Care Team Providers Care Political Worker Name Role Phone Pop Carreon MD Primary Care Provider [phone] Jessica Sosa SUBSTATION ELECTRICIAN Unavailable [phone] Meghana Canseco DO Unavailable [phone] Encounter Details Date Type Department Care Team (Late st Contact Info) Description 10/27/2023 Clinisync Result Encounter [facility] External Department Unsolicited Jessica Sosa, KEY [address] [place] [id number] Social History Tobacco Use Types Packs/Day Years [...] often do you attend chur ch or pentecostalism services? 1 to 4 times per year 03/28/2023 Do you belong to any clubs o r organizations such as episcopal groups, unions, fraternal or athletic groups, or [...] Recorded Patient Health Questionnaire-2 Score 0 [facility]18[facility] Answer Date Recorded [...] place to sleep or slept in a penitentiary (including now)? No 03/28/2023 Comments Unknown Sex and Gender Information Value Date Recorded Sex Assigned at Not on file Legal Sex Female 8:33 PM EDT Gender Identity Not on file Sexual Orientation Not on file documented as of this encounter Plan of Treatment Not on file documented as of this encounter Procedures Procedure Name Priority Date/Time Associated Diagnosis Comments MM TOMOSYNTHESIS SCREENING BI 10/27/2023 1:41 PM EDT documented in this encounter Results * MM TOMOSYNTHESIS SCREENING BI (10/27/2023 1:41 PM EDT) Anatomical Region Laterality Modality Other 10/27/2023 1:41 PM EDT Narrative 10/27/2023 1:41 PM EDT The [address] [address] Mammography Report Signed Patient: CLAUDETTE ROSS MR#: [id number] : 1955 Acct:[id number] Age/Sex: 68 / F ADM Date: 10/25/23 Loc: MAMMO Attending Dr: Jessica Sosa NP Ordering Physician: Jessica Sosa NP Results: Date of Service: 10/25/23 Follow Up: Procedure(s): MM tomosynthesis screening BI Accession Number(s): [id number] cc: Jessica Sosa SUBSTATION ELECTRICIAN Patient Name: CLAUDETTE ROSS MR#: [id number] : 1955 Exam Date: 10/25/2023 Ordering Doctor: RODNEY Sosa ROAD MECHANIC RADIOLOGY REPORT PROCEDURE: MM TOMOSYNTHESIS SCREENING BI COMPARISON: MM TOMOSYNTHESIS SCREENING BI, 09/27/2022. MG MAMM SCREEN 3D GERARD CAD, 06/24/2021. MG MAMM SCREEN GERARD W CAD, 08/20/2018. MG MAMM GERARD SCRN W CAD DIG, 02/28/2014. INDICATIONS: Screening Calculator Name NCI Breast Cancer Risk Assessment Tool 5 Year Breast Cancer Risk 1.10% Lifetime Breast Cancer Risk 3.50% Personal Breast Cancer No Personal Ovarian Cancer No Treatments None Family Cancers Mother with pancreatic cancer at age 59. LOCATION: The [facility] BREAST COMPOSITION: There are scattered areas of fibroglandular density. FINDINGS: DIAGNOSTIC CATEGORY 2--BENIGN FINDING: RIGHT BREAST: No significant suspicious finding. Scattered benign-appearing calcifications are present. No significant change has occurred. LEFT BREAST: No significant suspicious finding. Scattered benign-appearing calcifications are present. No significant change has occurred. RECOMMENDATIONS: ROUTINE MAMMOGRAM AND CLINICAL EVALUATION IN 12 MONTHS. PLEASE NOTE: A NORMAL MAMMOGRAM DOES NOT EXCLUDE THE POSSIBILITY OF BREAST CANCER. A CLINICALLY SUSPICIOUS PALPABLE LUMP SHOULD BE BIOPSIED. Dictated by: Gerald Cole M.D. on 10/27/2023 at 12:52 Approved by: Gerald Cole M.D. on 10/27/2023 at 13:40 Dictated By: Gerald Cole M.D. Signed By: 10/27/23 1341 DD/ 1341 TD/TT: Wood Buffer: Procedure Note Radiology, Radiologist, MD - 10/27/2023 [place] [address] Mammography Report Signed Patient: CLAUDETTE ROSS AMR#: [id number] : 5Acct:[id number] Age/Sex: 68 / FADM Date: 10/25/23 Loc: MAMMO Attending Dr: Jessica Sosa NP Ordering Physician: Jessica Sosa NPResults: Date of Service: 10/25/23Follow Up: Procedure(s): MM tomosynthesis screening BI Accession Number(s): [id number] cc: Jessica Sosa SUBSTATION ELECTRICIAN Patient Name: CLAUDETTE ROSS MR#: [id number] : 1955 Exam Date: 10/25/2023 Ordering Doctor: RODNEY Sosa CNP RADIOLOGY REPORT PROCEDURE: MM TOMOSYNTHESIS SCREENING BI COMPARISON: MM TOMOSYNTHESIS SCREENING BI, 09/27/2022. MG MAMM [id number] GERARD CAD, 06/24/2021. MG MAMM SCREEN GERARD W CAD, 08/20/2018. MG MAMM BILSCRN W CAD DIG, 02/28/2014. INDICATIONS: Screening Calculator Name NCI Breast Cancer Risk Assessment Tool 5 Year Breast Cancer Risk 1.10% Lifetime Breast Cancer Risk 3.50% Personal Breast Cancer No Personal Ovarian Cancer No Treatments None Family Cancers Mother with pancreatic cancer at age 59. LOCATION: [facility] BREAST COMPOSITION: There are scattered areas of fibroglandulardensity. FINDINGS: DIAGNOSTIC CATEGORY 2--BENIGN FINDING: RIGHT BREAST: No significant suspicious finding. Scatteredbenign-appearing calcifications are present. No significant change has occurred. LEFT BREAST: No significant suspicious finding. Scatteredbenign-appearing calcifications are present. No significant change has occurred. RECOMMENDATIONS: ROUTINE MAMMOGRAM AND CLINICAL EVALUATION IN 12 MONTHS. PLEASE NOTE: A NORMAL MAMMOGRAM DOES NOT EXCLUDE THE POSSIBILITY OFBREAST CANCER. A CLINICALLY SUSPICIOUS PALPABLE LUMP SHOULD BE BIOPSIED. Dictated by: Gerald Cole M.D. on 10/27/2023 at 12:52 Approved by: Gerald Cole M.D. on 10/27/2023 at 13:40 Dictated By: Gerald Cole M.D. Signed By:10/27/23 1341 DD/ 1341 TD/TT: Wood Buffer: Jessica Sosa NP [facility] Final Result documented in this encounter Visit Diagnoses Not on filedocumented in this encounter Care Teams Political Worker Relationship Specialty Start Date End Date Pop Carreon MD PCP - General Family Medicine 04/13/23 Jessica Sosa NP Nurse Practitioner Family Medicine 04/13/23 Meghana Canseco DO [address] [place] [address] Referring Physician Neurology 03/15/24 documented as of this encounter
--- OUTSIDE RECORDS SUMMARY | 2024-11-11 09:55 | XMS_ITS | Encounter Summary ---
Author Organization [facility] Address [address] [place] [address] Care Team Providers Care Criminal Investigative Agent Name Role Phone Pop Carreon MD Primary Care Provider [phone] Jessica Sosa SHIP LOADER Unavailable [phone] Meghana Canseco DO Unavailable [phone] Encounter Details Date Type Department Care Team (Late st Contact Info) Description 08/22/2023 Orders Only [facility] [address] [facility] [place] [address] Meghana Canseco DO Social History Tobacco Use Types Packs/Day Years [...] often do you attend chur ch or mosque services? 1 to 4 times per year 03/28/2023 Do you belong to any clubs o r organizations such as jain groups, unions, fraternal or athletic groups, or [...] Recorded Patient Health Questionnaire-2 Score 0 07/18/2023 [facility] - Occupational Stress Questionnaire Answer Date [...] place to sleep or slept in a long term (including now)? No 03/28/2023 Comments Unknown Sex and Gender Information Value Date Recorded Sex Assigned at Not on file Legal Sex Female 8:33 PM EDT Gender Identity Not on file Sexual Orientation Not on file documented as of this encounter Plan of Treatment Not on file documented as of this encounter Procedures Procedure Name Priority Date/Time Associated Diagnosis Comments POLYSOMNOGRAPHY Routine 08/22/2023 10:15 AM EDT POLYSOMNOGRAPHY Routine 08/22/2023 10:12 AM EDT POLYSOMNOGRAPHY Routine 08/22/2023 10:00 AM EDT POLYSOMNOGRAPHY Routine 08/22/2023 9:47 AM EDT documented in this encounter Results * Polysomnography (08/22/2023 10:15 AM EDT) Meghana Canseco DO [facility] ORDERABLES Final R esult * Polysomnography (08/22/2023 10:12 AM EDT) Meghana Canseco DO SLEEP CENTER ORDERABLES Final R esult * Polysomnography (08/22/2023 10:00 AM EDT) Meghana Canseco DO SLEEP CENTER ORDERABLES Final R esult * Polysomnography (08/22/2023 9:47 AM EDT) Meghana Canseco DO SLEEP CENTER ORDERABLES Final R esult documented in this encounter Visit Diagnoses Not on filedocumented in this encounter Care Teams Criminal Investigative Agent Relationship Specialty Start Date End Date Pop Carreon MD PCP - General Family Medicine 04/13/23 Jessica Sosa NP Nurse Practitioner Family Medicine 04/13/23 Meghana Canseco DO [address] [place] [address] Referring Physician Neurology 03/15/24 documented as of this encounter
--- OUTSIDE RECORDS SUMMARY | 2024-11-11 09:55 | XMS_ITS | Encounter Summary ---
Author Organization [facility] Address [address] [place] [address] Care Team Providers Care Diesel Maintenance Technician Name Role Phone Pop Carreon MD Primary Care Provider [phone] Jessica Sosa STRIPPER SOFT PLASTIC Unavailable [phone] Meghana Canseco DO Unavailable [phone] Encounter Details Date Type Department Care Team (Late st Contact Info) Description 04/03/2024 Orders Only [facility] [address] [place] [address] Jessica Sosa, [place] [address] [place] [place] [address] Social History Tobacco Use Types Packs/Day Years [...] often do you attend chur ch or anabaptist services? 1 to 4 times per year 03/28/2023 Do you belong to any clubs o r organizations such as yazidi groups, unions, fraternal or athletic groups, or [...] Recorded Patient Health Questionnaire-2 Score 0 12/20/2023 [facility] - Occupational Stress [...] place to sleep or slept in a correction (including now)? No 03/28/2023 Comments Unknown Sex and Gender Information Value Date Recorded Sex Assigned at Not on file Legal Sex Female 8:33 PM EDT Gender Identity Not on file Sexual Orientation Not on file documented as of this encounter Plan of Treatment Not on file documented as of this encounter Procedures Procedure Name Priority Date/Time Associated Diagnosis Comments DEXA BONE DENSITY Routine 04/03/2024 11:02 AM EST documented in this encounter Results * DEXA bone density (04/03/2024 11:02 AM EST) Anatomical Region Laterality Modality Body Radiographic Luli ging Jessica Sosa NP IMG DXA PROCEDURES Final Result documented in this encounter Visit Diagnoses Not on filedocumented in this encounter Additional Health Concerns Assessment Noted Time PHQ-9 Depression Total Score: 1 12/20/19 24 4:38 PM EDT documented as of this encounter Care Teams Diesel Maintenance Technician Relationship Specialty Start Date End Date Pop Carreon MD PCP - General Family Medicine 04/13/23 Jessica Sosa NP Nurse Practitioner Family Medicine 04/13/23 Meghana Canseco DO [address] [place] [address] Referring Physician Neurology 03/15/24 documented as of this encounter
--- OUTSIDE RECORDS SUMMARY | 2024-11-11 09:55 | XMS_ITS | Encounter Summary ---
Author Organization [facility] Address [address] [place] [address] Care Team Providers Care Tea Tree Farmer Name Role Phone Pop Carreon MD Primary Care Provider [phone] Ppo Crareon MD Primary Care Provider [phone] Jessica Sosa CHAIN CARRIER Unavailable [phone] Meghana Canseco DO Unavailable [phone] Encounter Details Date Type Department Care Team (Late st Contact Info) Description 02/19/2023 Abstract [facility] [address] [place] [address] Jessica Sosa, CHAIN CARRIER [address] [place] [address] Social History Tobacco Use Types Packs/Day Years Used Date Smoking Tobacco: Never Passive Smoke Exposure: Never Smokeless Tobacco: Never Tobacco Cessation:Counseling Given: Not Answered Alcohol Use Standard Drinks/Week Comments Never 0 (1 standard drink = 0.6 oz pure alcohol) caffeine yes type:tea 1cup daily Comments Unknown Sex and Gender Information Value Date Recorded Sex Assigned at Not on file Legal Sex Female 8:33 PM EDT Gender Identity Not on file Sexual Orientation Not on file documented as of this encounter Plan of Treatment Not on file documented as of this encounter Visit Diagnoses Not on filedocumented in this encounter Care Teams Tea Tree Farmer Relationship Specialty Start Date End Date Pop Carreon MD PCP - General Family Medicine 08/16/22 04/12/23 Pop Carreon MD PCP - General Family Medicine 04/13/23 Jessica Sosa NP Nurse Practitioner Family Medicine 04/13/23 Meghana Canseco DO [address] [place] [address] Referring Physician Neurology 03/15/24 documented as of this encounter
--- NOTE | 2024-11-11 09:56 | MM_ITS ---
Patient Name: DANELLE ROSS MR#: [id number] : 1955 Exam Date: 11/11/2024 Ordering Doctor: RODNEY FELDMAN CNP RADIOLOGY REPORT PROCEDURE: MM TOMOSYNTHESIS SCREENING BI COMPARISON: MM TOMOSYNTHESIS SCREENING BI, 10/25/2023. MM TOMOSYNTHESIS SCREENING BI, 09/27/2022. MG MAMM SCREEN 3D GERARD CAD, 06/24/2021. MG MAMM GERARD SCRN W CAD DIG, 02/28/2014. INDICATIONS: Screening Calculator Name NCI Breast Cancer Risk Assessment Tool 5 Year Breast Cancer Risk 1.10% Lifetime Breast Cancer Risk 3.30% Personal Breast Cancer No Personal Ovarian Cancer No Treatments None Family Cancers Mother with pancreatic cancer at age 59. LOCATION: [facility] BREAST COMPOSITION: There are scattered areas of fibroglandular density. FINDINGS: DIAGNOSTIC CATEGORY 1--NEGATIVE. RIGHT BREAST: No significant suspicious finding. LEFT BREAST: No significant suspicious finding. RECOMMENDATIONS: ROUTINE MAMMOGRAM AND CLINICAL EVALUATION IN 12 MONTHS. Dictated by: Bart Martins DO on 11/12/2024 at 15:19 Approved by: Bart Martins DO on 11/12/2024 at 15:21
--- OUTSIDE RECORDS SUMMARY | 2024-11-11 09:56 | XMS_ITS | Patient Health Record ---
Author Organization [facility] [place] Address [address] [place] [address] Support Name Relationship Address Phone [facility] Contact Unknown Claudette Hernandes Guarantor Unknown [phone] Reason For Referral No Information Medications Medication SIG (Take, Route, Frequency, Duration) Notes Start Date End Date Status Montelukast Sodium 10 mg Active Sertraline HCl 100 mg Active Simvastatin 20 mg A ctive Plan Of Treatment No Information Insurance Providers Payer Name Payer Address Payer Phone Subscriber Number Group Number Insured Name Patient Relationship to Insured Coverage Start Date Coverage End Date [place] [address] [place] [address] [id number] Claudette Hernandes Self - patient is the insured 3 [place] 2ND INS [address] OFF[place] OF [place], [place] [id number] Claudette Hernandes Self - patient is the insured 3
--- OUTSIDE RECORDS SUMMARY | 2024-11-11 09:57 | XMS_ITS | CCD ---
Author Organization [facility] Care Team Providers Care Unclaimed Property Officer Name Role Phone Conrado Mccoy Unavailable Unavail [...] Unlisted Unavailable Unavailable ROHINI ZAVALAI Admitting Unavailable SALLY, HANI Attending Unavailable ZAHIDA BARKER Referring Unavailable IAN, JESSICA Primary Care Unavailable MD NIDHI MICHAELS Attending Unavailable MD NIDHI MICHAELS Primary Care Unavailable MD NIDHI MICHAELS Primary Care Unavailable MD NIDHI MICHAELS Consulting Unavailable MD SLICK TARIQ Attending Unavailab JESSICA Egan Primary Care Physician Jessica Sosa Primary Care Provider [phone] RADHA Batres Attending Provider Jessica Sosa Primary Care Unavailable Yordan Batres Attending Unavailable Yordan Batres Admitting Unavailable AICHHOLZ, RODNEY JESSICA Admitting Unavailable AICHHOLZ, BOTTOM PRESSER JESSICA Attending Unavailable AICHHOLZ, BOTTOM PRESSER JESSICA Consulting Unavailable AICHHOLZ, BOTTOM PRESSER JESSICA Primary Care Unavailable AICHHOLZ, BOTTOM PRESSER JESSICA Admitting Unavailable DR JACKELIN TAMAYO V Consulting Unavailable AICHHOLZ, BOTTOM PRESSER JESSICA Attending Unavailable AICHHOLZ, BOTTOM PRESSER JESSICA Primary Care Unavailable AICAmeHOLZ, BOTTOM PRESSER JESSICA Consulting Unavailable JACKELIN BATRES Consulting Unavailable AICHHOLZ, BOTTOM PRESSER JESSICA Admitting Unavailable AICHHOLZ, BOTTOM PRESSER JESSICA Attending Unavailable AICHHOLZ, BOTTOM PRESSER JESSICA Consulting Unavailable AICHHOLZ, BOTTOM PRESSER JESSICA Primary Care Unavailable DR JEROME AYALA Consulting Unavailable AICHHOLZ, BOTTOM PRESSER JESSICA Admitting Unavailable AICHHOLZ, BOTTOM PRESSER JESSICA Attending Unavailable AICHHOLZ, BOTTOM PRESSER JESSICA Consulting Unavailable AICHHOLZ, BOTTOM PRESSER JESSICA Primary Care Unavailable JOSE DE JESUS PEREZ Consulting Unavailable AICHHOLZ, BOTTOM PRESSER JESSICA Primary Care Unavailable AICHHOLZ, BOTTOM PRESSER JESSICA Attending Unavailable AICHHOLZ, BOTTOM PRESSER JESSICA Admitting Unavailable AICHHOLZ, BOTTOM PRESSER JESSICA Consulting Unavailable AICHHOLZ, BOTTOM PRESSER JESSICA Admitting Unavailable AICHHOLZ, BOTTOM PRESSER JESSICA Attending Unavailable AICHHOLZ, BOTTOM PRESSER JESSICA Primary Care Unavailable AICHHOLZ, BOTTOM PRESSER JESSICA Admitting Unavailable AICHHOLZ, BOTTOM PRESSER JESSICA Attending Unavailable AICHHOLZ, BOTTOM PRESSER JESSICA Consulting Unavailable AICHHOLZ, BOTTOM PRESSER JESSICA Primary Care Unavailable DR JEROME AYALA Consulting Unavailable LINDA MASON Attending Unavailable Pop Carreon MD Primary Care Provider Aichholz BIOLOGY SPECIALIST, Jessica Unavailable Meghana Canseco DO Unavailable AICHHOLZ, JESSICA Attending Unavailable AICHHOLZ, JESSICA Attending Unavailable AICHHOLZ, JESSICA Attending Unavailable AICHHOLZ, JESSICA Attending Unavailable AICHHOLZ, JESSICA Attending Unavailable AICHHOLZ, JESSICA Attending Unavailable Aichholz BIOLOGY SPECIALIST-CJessica Primary Care Provider Aicceline BIOLOGY SPECIALIST-CJessica Attending Provider Allergies Allergy Classification Reported Allergen(s) Allergy Type Date of Onset Reaction(s) Facility (5 sources) acetaminophen / HYDROcodone; Translations: [Vicodin] Drug Allergy 3 Eruption of skin (disorder) [facility] Repository (1 source) acetaminophen / oxyCODONE; Translations: [Percocet ] Drug Allergy [facility] Repository (20 sources) codeine; Translations: [codeine] Drug Allergy 0 Eruption of skin (disorder), Weal (disorder), Rash [facility] Repository (2 sources) Acetaminophen / oxyCODONE Drug Allergy 0 [facility] Repository (4 sources) Acetaminophen; Translations: [acetaminophen] Drug Allergy 5 Weal (disorder) [facility] (3 sources) Acetaminophen / oxyCODONE; Translations: [acetaminophen-oxyco done] Drug Allergy Cutaneous eruption (morphologic abnormality) [facility] (3 sources) acetaminophen / propoxyphene; Translations: [acetaminophen-propo xyphene] Drug Allergy Eruption of skin (disorder) [facility] (3 sources) Cortisone; Translations: [cortisone] Drug Allergy 6 Unknown [facility] (20 sources) oxyCODONE; Translations: [oxycodone] Drug Allergy 3 Weal (disorder), Rash [facility] (1 source) Cortisone Drug Allergy 6 [facility] Repository (1 source) Penicillins Drug allergy (disorder) 3 [facility] Repository (1 source) Darvocet-N 100 Drug allergy (disorder) 0 [facility] Repository (1 source) Codeine; Translations: [codeine sulfate] Drug Allergy [facility] Repository (20 sources) Acetaminophen / HYDROcodone Drug Allergy 3 [facility] Healthcare (20 sources) Acetaminophen / oxyCODONE Drug Allergy 7 Rash [facility] Healthcare (20 sources) HYDROcodone Drug Allergy 3 Rash [facility] Healthcare (20 sources) Sulfamethoxazole / Trimethoprim Drug Allergy 3 [facility] (1 source) Sulfamethoxazole Drug Allergy 5 [facility] (1 source) Trimethoprim Drug Allergy 5 [facility] Medications Current Medications Medication Drug Class(es) Dates Sig (Normalized) Sig (Original) alendronic acid 70 mg oral tablet (20 sources) Bisphosphonate Start: 11-03-2024 take 1 tablet by mouth every week Alendronate 70 mg tablet Active 70 MG PO every week November 03, 2024 12:00am Complies with drug therapy Start: 07-18-2023 End: 11-03-2024 take 1 tablet by mouth in the morning alendronate (Fosamax) 70 MG tablet Indications: Osteopenia, unspecified location Take 1 tablet (70 mg) by mouth every 7 (seven) days Take in the morning with a full glass of water, on an empty stomach, and do not take anything else by mouth or lie down for the next 30 min. 12 tablet 1 08/05/2024 11/03/2024 Active Start: 11-06-2018 take 1 tablet by sarah th every week Fosamax 70 mg Tab 70 mg = 1 tab(s), Oral, 1x per week, Refills(s) 0 Start Date: 11/06/18 Status: Ordered amitriptyline hydrochloride 10 mg oral tablet (12 sources) Tricyclic Antidepressant Start: 11-03-2024 take 2 tablets by mouth once daily at bedtime Amitriptyline 10 mg tablet Active 20 MG PO Daily at bedtime November 03, 2024 12:00am Complies with drug therapy Start: 08-05-2024 amitriptyline (Elavil) 10 MG tablet Indications: Primary insomnia Start with 1 pill at bedtime, after 7 days if not effective, then can increase to 2 pills 60 tablet 1 08/05/2024 Active Start: 08-05-2024 amitriptyline (Elavil) 10 MG tablet Indications: Primary insomnia Start with 1 pill at bedtime, after 7 days if not effective, then can increase to 2 pills 60 tablet 1 08/05/2024 Active Start: 04-22-2024 End: 08-05-2024 amitriptyline (Elavil) 10 MG tablet Indications: Primary insomnia Start with 1 pill at bedtime, after 7 days if not effective, then can increase to 2 pills 60 tablet 1 04/22/2024 08/05/2024 Discontinued (Reorder) ARIPiprazole 5 mg oral tablet (20 sources) Atypical Antipsychotic Start: 06-03-2024 End: 11-03-2024 take 1 tablet by mouth once daily Aripiprazole 5 mg tablet Active 5 MG PO Daily November 03, 2024 12:00am Complies with drug therapy Start: 07-18-2023 End: 06-23-2024 take 1 tablet by mouth once daily ARIPiprazole (Abilify) 2 MG tablet Indications: Anxiety and depression (CMS/HCC) Take 1 tablet (2 mg) by mouth Daily 90 tablet 1 03/25/2024 06/03/2024 Discontinued (Ineffective) betamethasone 0.5 mg/ml / clotrimazole 10 mg/ml topical cream (4 sources) Azole Antifungal, Corticosteroid Start: 07-25-2024 End: 08-22-2024 clotrimazole-betamethasone (Lotrisone) cream Indications: Skin candidiasis Apply topically in the morning and before bedtime. Do all this for 28 days. 45 g 07/25/2024 08/05/2024 Discontinued (Therapy completed) busPIRone hydrochloride 10 mg oral tablet (20 sources) Start: 11-03-2024 take 1 tablet by mouth twice daily as needed Buspirone 10 mg tablet Active 10 MG PO Twice daily as needed November 03, 2024 12:00am Complies with drug therapy Start: 07-18-2023 End: 11-03-2024 take 1 tablet by mouth once busPIRone (Buspar) 10 MG t ablet Indications: Anxiety and depression Take 1 tablet (10 mg) by mouth every 12 (twelve) hours 180 tablet 1 08/05/2024 11/03/2024 Active Start: 11-03-2021 busPIRone 7.5 mg oral tablet Refills(s) 0 Start Date: 11/03/21 Status: Ordered cetirizine hydrochloride 10 mg oral tablet (20 sources) Histamine-1 Receptor Antagonist Start: 07-18-2023 End: 11-03-2024 take 1 tablet by mouth once daily as needed Cetirizine (All Day Allergy (Cetirizine)) 10 mg tablet Active 10 MG PO Daily as needed November 03, 2024 12:00am Complies with drug therapy cholecalciferol 0.125 mg oral capsule (7 sources) Vitamin D Start: 07-18-2023 End: 01-16-2024 take 1 capsule by mouth once daily cholecalciferol (Vitamin D-3) 125 MCG (5000 UT) capsule Indications: Vitamin D deficiency Take 1 capsule (125 mcg) by mouth Daily 90 capsule 1 10/18/2023 01/16/2024 Active levothyroxine sodium 0.075 mg oral tablet (20 sources) l-Thyroxine Start: 07-18-2023 End: 11-03-2024 take 1 tablet by mouth once daily Levothyroxine 75 mcg tablet Active 75 MCG PO Daily November 03, 2024 12:00am Complies with drug therapy Start: 11-06-2018 take 1 tablet by sarah th once daily levothyroxine 50 mcg (0.05 mg) Tab 50 microgram = 1 tab(s), Oral, Daily, Refills(s) 0 Start Date: 11/06/18 Status: Ordered losartan potassium 25 mg oral tablet (19 sources) Angiotensin 2 Receptor Neena Start: 03-25-2024 End: 11-03-2024 take 1 tablet by mouth once daily Losartan 25 mg tablet Active 25 MG PO Daily November 03, 2024 12:00am Complies with drug therapy 24 hr mirabegron 50 mg extended release [...] 01/16/2024 Active montelukast 10 mg oral tablet (20 sources) Leukotriene Receptor Antagonist Start: 07-18-2023 End: 11-03-2024 take 1 tablet by mouth once daily at bedtime Montelukast 10 mg tablet Active 10 MG PO Daily at bedtime November 03, 2024 12:00am Complies with drug therapy Start: 11-06-2018 take 1 tablet by sarah th once daily Singulair 10 mg Tab 10 mg = 1 tab(s), Oral, Daily, Refills(s) 0 Start Date: 11/06/18 Status: Ordered naproxen 500 mg oral tablet (11 sources) Nonsteroidal Anti-inflammatory Drug Start: 11-03-2024 take 1 tablet by mouth twice daily as needed Naproxen 500 mg tablet Active 500 MG PO Twice daily as needed November 03, 2024 12:00am Complies with drug therapy Start: 04-13-2024 take 1 tablet by sarah th twice daily as needed naproxen (Naprosyn) 500 MG tablet Take 500 mg by mouth 2 (two) times a day as needed 04/13/2024 Active nystatin [id number] unt/ml topical cream (2 sources) Polyene Antifungal Start: 08-05-2024 End: 08-20-2024 nystatin (Mycostatin) cream Indications: Candidiasis Apply topically in the morning and before bedtime. Do all this for 15 days. 30 g 1 08/05/2024 08/20/2024 Active sertraline 100 mg oral tablet (20 sources) Serotonin Reuptake Inhibitor Start: 11-03-2024 take 1 tablet by mouth twice daily Sertraline 100 mg tablet Active 100 MG PO Twice daily November 03, 2024 12:00am Complies with drug therapy Start: 07-18-2023 End: 11-03-2024 take 1 tablet by mouth in the morning sertraline (Zoloft) 100 MG tablet Indications: Generalized Anxiety Disorder , Major Depressive Disorder Take 1 tablet (100 mg) by mouth in the morning and 1 tablet (100 mg) before bedtime. 180 tablet 1 08/05/2024 11/03/2024 Active Start: 11-06-2018 take 1 tablet by sarah th once daily Zoloft 100 mg Tab 100 mg = 1 tab(s), Oral, Daily, Refills(s) 0 Start Date: 11/06/18 Status: Ordered simvastatin 20 mg oral tablet (20 sources) HMG-CoA Reductase Inhibitor Start: 07-18-2023 End: 11-03-2024 take 1 tablet by mouth once daily at bedtime Simvastatin 20 mg tablet Active 20 MG PO Daily at bedtime November 03, 2024 12:00am Complies with drug therapy Start: 11-06-2018 take 1 tablet by sarah [...] BID, # 60 tab(s), Refills(s) 11, Pharmacy: [facility]/pharmacy #[id number], 165.1, cm, 03/31/20 9:27:00 EST, Height/Length Dosing, 92.8, kg, 03/31/20 9:27:00 EST, Weight Dosing Start Date: 11/03/21 Status: Ordered traZODone hydrochloride 50 mg oral tablet (18 sources) Serotonin Reuptake Inhibitor Start: 07-18-2023 End: 06-23-2024 take 2 tablets by mouth at bedtime traZODone (Desyrel) 50 MG tablet Indications: Anxiety and depression (CMS/HCC) Take 2 tablets (100 mg) by mouth at bedtime 180 tablet 1 03/25/2024 04/22/2024 Discontinued (Ineffective) Vitamin D (2 sources) Start: 11-06-2018 Vitamin D Oral, Daily, Refills(s) 0 Start Date: 11/06/18 Status: Ordered Problems Active Problems Problem Classification Problem Date Documented Da te Episodic/Chronic Acquired foot deformities (20 sources) Acquired hallux valgus; Translations: [Hallux valgus (acquired), unspecified foot] Onset: 01-27-2023 01-27-2023 Chronic Anxiety disorders (20 sources) Mixed anxiety and depressive disorder; Translations: [Anxiety disorder, unspecified] Onset: 04-13-2023 04-13-2023 Chronic Disorders of lipid metabolism (20 sources) Hypercholesterolemia ; Translations: [Hyperlipidemia, unspecified] Onset: 08-09-2021 Resolved: 12-20-2023 05-17-2013 Chronic Diverticulosis and diverticulitis (20 sources) Diverticular disease; Translations: [Diverticulosis of intestine, part unspecified, without perforation or abscess without bleeding] Onset: 04-13-2023 04-13-2023 Chronic Essential hypertension (20 sources) Hypertensive disorder; Translations: [Essential (primary) hypertension] Onset: 04-13-2023 08-08-2013 Chronic Comment on above: on no meds at presen t Genitourinary symptoms and ill-defined conditions (20 sources) Mixed incontinence; Translations: [Female stress incontinence] Onset: 11-03-2021 Chronic Genitourinary symptoms and ill-defined conditions (20 sources) Nocturia; Translations: [Poor stream of urine] Onset: 04-13-2023 02-27-2020 Episodic Miscellaneous mental health disorders (6 sources) Primary insomnia; Translations: [Primary insomnia] 03-03-2025 Chronic Mood disorders (20 sources) Recurrent major depressive episodes, mild ; Translations: [Major depressive disorder, recurrent, mild] Onset: 01-31-2023 01-31-2023 Chronic Mycoses (20 sources) Candidiasis of skin; Translations: [Candidiasis of skin and nail] Onset: 04-13-2023 04-13-2023 Episodic Nutritional deficiencies (20 sources) Vitamin D deficiency, unspecified; Translations: [Vitamin D deficiency] Onset: 06-03-2022 04-13-2023 Chronic Other acquired deformities (20 sources) Contracture of joint of right ankle; Translations: [Contracture, right ankle] Onset: 01-27-2023 01-27-2023 Chronic Other bone disease and musculoskeletal deformities (2 sources) Posterior calcaneal exostosis 05-17-2013 Episodic Comment on above: left Other bone disease and musculoskeletal deformities (20 sources) Osteopenia; Translations: [Other specified disorders of bone density and structure, unspecified site] Onset: 04-13-2023 04-13-2023 Episodic Other connective tissue disease (20 sources) Dupuytren's contracture; Translations: [Palmar fascial fibromatosis [Dupuytren]] Onset: 01-27-2023 01-27-2023 Episodic Other diseases of bladder and urethra (1 source) Detrusor overactivity; Translations: [Overactive bladder] Onset: 11-03-2021 Chronic Other diseases of bladder and urethra (2 sources) Overactive bladder 03-31-2020 Chronic Other diseases of bladder and urethra (3 sources) Traumatic urethral stricture; Translations: [Other post-traumatic urethral stricture, female] Onset: 11-03-2021 Episodic Other diseases of veins and lymphatics (1 source) Venous insufficiency of leg; Translations: [Venous insufficiency (chronic) (peripheral)] 11-03-2024 Episodic Other lower respiratory disease (20 sources) Nodule of lung; Translations: [Solitary pulmonary nodule] Onset: 04-13-2023 04-13-2023 Episodic Other nervous system disorders (20 sources) Bilateral carpal tunnel syndrome; Translations: [Carpal tunnel syndrome, bilateral upper limbs] Onset: 01-27-2023 01-27-2023 Chronic Other nervous system disorders (20 sources) Ulnar neuropathy of right arm; Translations: [Lesion of ulnar nerve, right upper limb] Onset: 01-27-2023 01-27-2023 Chronic Other nervous system disorders (1 source) Ulnar neuropathy; Translations: [Lesion of ulnar nerve, unspecified upper limb] 11-03-2024 Chronic Other nutritional; endocrine; and metabolic disorders (20 sources) Body mass index 25-29 - overweight; Translations: [Overweight] Onset: 12-20-2023 12-20-2023 Episodic Other nutritional; endocrine; and metabolic disorders (1 source) Overweight; Translations: [Overweight] 11-03-2024 Episodic Other screening for suspected conditions (not mental disorders or infectious disease) (20 sources) Encounter for screening mammogram for malignant neoplasm of breast; Translations: [Patient encounter status] Onset: 06-24-2021 Episodic Other upper respiratory disease (2 sources) Seasonal allergic rhinitis 10-04-2013 Chronic Other upper respiratory disease (20 sources) Allergic rhinitis; Translations: [Allergic rhinitis, unspecified] Onset: 04-13-2023 04-13-2023 Chronic Other upper respiratory disease (20 sources) Seasonal allergy; Translations: [Other seasonal allergic rhinitis] Onset: 04-13-2023 04-13-2023 Chronic Other upper respiratory disease (1 source) Allergic disposition; Translations: [Other allergic rhinitis] 11-03-2024 Chronic Residual codes; unclassified (20 sources) Obstructive sleep apnea syndrome; Translations: [Obstructive sleep apnea (adult) (pediatric)] Onset: 04-13-2023 08-22-2023 Chronic Residual codes; unclassified (20 sources) Insomnia; Translations: [Insomnia, unspecified] Onset: 04-13-2023 04-13-2023 Episodic Residual codes; unclassified (20 sources) Postmenopausal state; Translations: [Asymptomatic menopausal state] Onset: 04-13-2023 12-20-2023 Episodic Spondylosis; intervertebral disc disorders; other back problems (20 sources) Other cervical disc degeneration, unspecified cervical region; Translations: [Other intervertebral disc degeneration, thoracic region] Onset: 06-03-2022 01-27-2023 Chronic Spondylosis; intervertebral disc disorders; other back problems (20 sources) Pain in thoracic spine; Translations: [Spinal stenosis of lumbar region] Onset: 05-25-2022 Resolved: 04-13-2023 Episodic Thyroid disorders (20 sources) Hypothyroidism, unspecified; Translations: [Hypothyroidism] Onset: 06-03-2022 [...] Date Documented Da te Episodic/Chronic Abdominal pain (20 sources) Abdominal pain; Translations: [Unspecified abdominal pain] Onset: 04-13-2023 Resolved: 04-13-2023 04-13-2023 Episodic Chronic obstructive pulmonary disease and bronchiectasis (20 sources) Bronchitis, not specified as acute or chronic; Translations: [Bronchitis] Onset: 05-09-2022 Resolved: 04-13-2023 Episodic Fracture of upper limb (20 sources) Fracture at wrist and/or hand level; Translations: [Fracture of unspecified carpal bone, unspecified wrist, initial encounter for closed fracture] Onset: 04-13-2023 Resolved: 04-13-2023 04-13-2023 Episodic Immunizations and screening for infectious disease (16 sources) Needs influenza immunization; Translations: [Encounter for immunization] Onset: 03-25-2024 03-25-2024 Episodic Mood disorders (17 sources) Mood disorders Onset: 12-20-2023 12-20-2023 Nonspecific chest pain (20 sources) Chest pain; Translations: [Chest pain, unspecified] Onset: 04-13-2023 Resolved: 04-13-2023 04-13-2023 Episodic Other bone disease and musculoskeletal deformities (1 source) Other specified disorders of bone density and structure, unspecified site; Translations: [OTH D/O BONE DEN STRUCT UNS SITE] Onset: 06-25-2021 Episodic Other connective tissue disease (20 sources) Dupuytren's disease of palm; Translations: [Palmar fascial fibromatosis [Dupuytren]] Onset: 01-27-2023 01-27-2023 Episodic Other connective tissue disease (20 sources) Lateral epicondylitis; Translations: [Lateral epicondylitis, unspecified elbow] Onset: 04-13-2023 Resolved: 04-13-2023 04-13-2023 Episodic Other diseases of veins and lymphatics (20 sources) Peripheral venous insufficiency; Translations: [Venous insufficiency (chronic) (peripheral)] Onset: 01-27-2023 01-27-2023 Episodic Other lower respiratory disease (20 sources) Dyspnea; Translations: [Dyspnea, unspecified] Onset: 04-13-2023 Resolved: 04-13-2023 04-13-2023 Episodic Other non-traumatic joint disorders (4 sources) Pain in right hip; Translations: [PAIN IN RIGHT HIP] Onset: 12-08-2021 Episodic Other nutritional; endocrine; and metabolic disorders (20 sources) Body mass index 30+ - obesity; Translations: [Obesity, unspecified] Onset: 01-31-2023 Resolved: 12-20-2023 01-31-2023 Chronic Other nutritional; endocrine; and metabolic disorders (20 sources) Obesity caused by energy imbalance; Translations: [Class 1 obesity due to excess calories without serious comorbidity in adult] Onset: 01-31-2023 Resolved: 12-20-2023 01-31-2023 Chronic Poisoning by nonmedicinal substances (20 sources) Insect sting; Translations: [Toxic effect of [...] [Asymptomatic menopausal state] Onset: 04-13-2023 04-13-2023 Episodic Unclassified (1 source) CONTACT W/AND (SUSP) EXPOS COVID-19; Translations: [CONTACT W/AND (SUSP) EXPOS COVID-19] Onset: 05-02-2022 Results Test Name Value Interpretation Reference Range Facility [facility] UA (CLEAN/CATCH) MICROSC OPIC IF INDICATEon 04-15-2024 BILIRUBIN URINE Negative NEGATIVE [facility] BLOOD URINE SMALL Abnormal NEGATIVE [facility] Clarity (U) CLEAR CLEAR [facility] Color (U) LT. YELLOW YELLOW [facility] GLUCOSE URINE UA Negative NEGATIVE mg/dL [facility] Interpretation and review of laboratory results Abnormal [facility] Ketones Ql (U) TRACE Abnormal NEGATIVE mg/dL [facility] Leukocyte esterase Test strip Ql (U) MODERATE Abnormal NEGATIVE [facility] NITRITE URINE Negative NEGATIVE [facility] pH (U) 6.0 [pH] 5.0 - 9.0 [facility] PROTEIN URINE Negative NEG/TRACE mg/dL [facility] SPECIFIC GRAVITY URINE 1.025 1.005 - 1.025 [facility] Healthcare URINE MICROSCOPIC INDICATED YES [facility] UROBILINOGEN URINE 1.0 EU/dL 0.2 - 1.0 EU[facility] [place] [address] XRay Report Signed Patient: CLAUDETTE ROSS MR#: [id number] : 1955 Acct:[id number] Age/Sex: 68 / F ADM Date: 04/03/24 Loc: [facility] Attending Dr: Jessica Sosa BIOLOGY SPECIALIST Ordering Physician: Jessica Sosa NP Date of Service: 04/03/24 Procedure(s): XR DEXA axial skeleton Accession Number(s): [id number] cc: Jessica Sosa NP [place] [id number] Patient Name: CLAUDETTE ROSS MRN: [id number] date: 1955 Sex: F Assigned Patient Location: [facility] Current Patient Location: Accession/Order Number: [id number] Exam Date: 04/03/2024 09:28 Report Date: 04/04/2024 [...] prevention and treatment of osteoporosis. Osteoporos Int. 2021;33(10):6530-6912. doi: 10.1007/a60172-817-63960-q. Epub 2021Jun 17. Erratum in: Osteoporos Int. 2021Sep 16;: PMID: [id number]; PMCID: [id number]. Electronically authenticated by: JEROME AYALA Date: 04/04/2024 08:01 Dictated By: Jerome Ayala M.D. Signed By: 04/04/24803 DD/ 0 TD/TT: Optician Apprentice: [facility] Radiology, Radiologiris leung MD - 04/04/2024 [place] [address] XRay Report Signed Patient: CLAUDETTE ROSS MR#: [id number] : 1955 Acct:[id number] Age/Sex: 68 / F ADM Date: 04/03/24 Loc: [facility] Attending Dr: Jessica Sosa NP Ordering Physician: Jessica Sosa NP Date of Service: 04/03/24 Procedure(s): XR DEXA axial skeleton Accession Number(s): [id number] cc: Jessica Sosa NP [place] [id number] Patient Name: CLAUDETTE ROSS MRN: [facility]:[id number] date: 1955 Sex: F Assigned Patient Location: [facility] Current Patient Location: Accession/Order Number: [id number] Exam Date: 04/03/2024 09:28 Report Date: 04/04/2024 [...] prevention and treatment of osteoporosis. Osteoporos Int. 2021;33(10):0029-6328. doi: 10.1007/[id number]-o. Epub 2021Jun 17. Erratum in: Osteoporos Int. 2021Sep 16;: PMID: [id number]; PMCID: [id number]. Electronically authenticated by: JEROME AYALA Date: 04/04/2024 08:01 Dictated By: Jerome Ayala M.D. Signed By: 04/04/24803 DD/ 0 TD/TT: Optician Apprentice: [facility] [employer] Radiology Study observation (narrative) [facility] [employer] XR DEXA AXIAL SKELETONOrdere d By: Radiologist Radiology on 04-04-2024 [facility] [employer] Work Phone: CBC AUTO DIFFon 05-25-2022 BASO # 0.0 103/ul Normal 0.0-0.1 [facility] Comment on above: Performed By: #### C BC #### [facility] [address] [place] [address] Dr. Dedrick Kinsey Basophils/100 WBC (Bld) 0.5 % Normal 0.2-2.0 [facility] Comment on above: Performed By: #### C BC #### [facility] [address] [place] [address] Dr. Dedrick Kinsey EO # 0.1 103/ul Normal 0.0-0.7 [facility] Comment on above: Performed By: #### C BC #### [facility] [address] [place] [address] Dr. Dedrick Kinsey Eosinophils/100 WBC (Bld) 2.5 % Normal 0.9-7.0 [facility] Comment on above: Performed By: #### C BC #### [facility] [address] [place] [address] Dr. Dedrick Kinsey Erythrocyte distribution width (RBC) [Ratio] 13.2 % Normal 11.0-15.0 [facility] Comment on above: Performed By: #### C BC #### [facility] [address] [place] [address] Dr. Dedrick Kinsey Hematocrit (Bld) [Volume fraction] 37.5 % Normal 36.0-48.0 [facility] Comment on above: Performed By: #### C BC #### [facility] [address] [place] [address] Dr. Dedrick Kinsey Hemoglobin (Bld) [Mass/Vol] 12.6 g/dL Normal 12.0-16.0 [facility] Comment on above: Performed By: #### C BC #### [facility] [address] [place] [address] Dr. Dedrick Kinsey IG # 0.01 10e3/ul Normal 0.00-0.03 [facility] Comment on above: Performed By: #### C BC #### [facility] [address] [place] [address] Dr. Dedrick Kinsey IG % 0.2 % Normal 0.0-0.5 [facility] Comment on above: Performed By: #### C BC #### [facility] [address] [place] [address] Dr. Dedrick Kinsey LYMPH # 1.5 103/ul Normal 1.2-3.8 [facility] Comment on above: Performed By: #### C BC #### [facility] [address] [place] [address] Dr. Dedrick Kinsey Lymphocytes/100 WBC (Bld) 34.0 % Normal 20.5-60.0 [facility] Comment on above: Performed By: #### C BC #### [facility] [address] [place] [address] Dr. Dedrick Kinsey MANUAL DIFF REQ NO Normal [facility] Comment on above: Performed By: #### C BC #### [facility] [address] [place] [address] Dr. Dedrick Kinsey MCH (RBC) [Entitic mass] 29.9 pg Normal 26.7-34.0 [facility] Comment on above: Performed By: #### C BC #### [facility] [address] [place] [address] Dr. Dedrick Kinsey MCHC (RBC) [Mass/Vol] 33.6 g/dL Normal 29.9-35.2 [facility] Comment on above: Performed By: #### C BC #### [facility] [address] [place] [address] Dr. Dedrick Kinsey MCV (RBC) [Entitic vol] 89.1 fL Normal 81.0-99.0 [facility] Comment on above: Performed By: #### C BC #### [facility] [address] [place] [address] Dr. Dedrick Kinsey MONO # 0.4 103/ul Normal 0.3-0.8 [facility] Comment on above: Performed By: #### C BC #### [facility] [address] [place] [address] Dr. Dedrick Kinsey Monocytes/100 WBC (Bld) 9.0 % Normal 1.7-12.0 [facility] Comment on above: Performed By: #### C BC #### [facility] [address] [place] [address] Dr. Dedrick Kinsey NEUT # 2.3 103/ul Normal 1.4-6.5 [facility] Comment on above: Performed By: #### C BC #### [facility] [address] [place] [address] Dr. Dedrick Kinsey Neutrophils/100 WBC (Bld) 53.8 % Normal 43.0-75.0 [facility] Comment on above: Performed By: #### C BC #### [facility] [address] [place] [address] Dr. Dedrick Kinsey Platelet mean volume (Bld) [Entitic vol] 9.2 fL Critically low 9.5-13.5 [facility] Comment on above: Performed By: #### C BC #### [facility] [address] [place] [address] Dr. Dedrick Kinsey PLT 188 103/ul Normal 150-450 [facility] Comment on above: Performed By: #### C BC #### [facility] [address] [place] [address] Dr. Dedrick Kinsey RBC 4.21 106/ul Normal 4.20-5.40 [facility] Comment on above: Performed By: #### C BC #### [facility] [address] [place] [address] Dr. Dedrick Kinsey WBC 4.4 103/ul Normal 4.0-11.0 [facility] Comment on above: Performed By: #### C BC #### [facility] [address] [place] [address] Dr. Dedrick Kinsey FREE T4on 05-25-2022 Free T4 [Mass/Vol] 0.79 ng/dL Normal 0.76-1.46 [facility] Comment on above: Performed By: #### V ITAD, FT4 ####[facility] [address] [place], [place] [address]Dr. Dedrick Kinsey LIPID PROFILEon 05-25-2022 CHOL-HDL RATIO NORM SEE BELOW Normal [facility] Comment on above: Result Comment: 3.3 - 4.4 LOW RISK 4.4 - 7.1 AVERAGE RISK 7.1 - 11.0 MODERATE RISK >11.0 HIGH RISK Performed By: #### T SH, CMP, LIPID ####[facility] [address] [place], [place] [address]Vq. Dedrick Kinsey Cholesterol [Mass/Vol] 175 mg/dL Normal <=200 [facility] Comment on above: Performed By: #### T SH, CMP, LIPID ####[facility] [address] [place] [id number]. Dedrick Kinsey Cholesterol in HDL [Mass/Vol] 39 mg/dL Critically low 40-60 [facility] Comment on above: Performed By: #### T SH, CMP, LIPID ####[facility] [address] [place] [id number]. Dedrick Kinsey Cholesterol in LDL [Mass/Vol] 113.6 mg/dL Normal [facility] Comment on above: Performed By: #### T SH, CMP, LIPID ####[facility] [address] [place] [id number]. Dedrick Kinsey Cholesterol.total/Cho lesterol in HDL [Mass ratio] 4.5 {ratio} Normal [facility] Comment on above: Performed By: #### T SH, CMP, LIPID ####[facility] [address] [place] [id number]. Dedrick Kinsey HDL NORMAL > or = 60 mg/dl - LO W CARDIOVASCULAR RISK <40 mg/dl - HIGH CARDIOVASCULAR RISK Normal [facility] Comment on above: Performed By: #### T SH, CMP, LIPID ####[facility] [address] [place] [id number]. Dedrick Kinsey LDL CALC NORMAL SEE BELOW Normal [facility] Comment on above: Result Comment: <100 mg/dl OPTIMAL 100 - 129 mg/dl NEAR OR ABOVE OPTIMAL 130 - 159 mg/dl BORDERLINE HIGH 160 - 189 mg/dl HIGH >190 mg/dl VERY HIGH Performed By: #### T SH, CMP, LIPID ####[facility] [address] [place] [id number]. Dedrick Kinsey Triglyceride [Mass/Vol] 112 mg/dL Normal <=150 [facility] Comment on above: Performed By: #### T SH, CMP, LIPID ####[facility] [address] [place] [id number]. Dedrick Kinsey VLDL CALC 22.4 mg/dL Normal [facility] Comment on above: Performed By: #### T SH, CMP, LIPID ####[facility] [address] [place] [id number]. Dedrick Kinsey PROF 14(COMP METB)on 023 Albumin [Mass/Vol] 3.5 g/dL Normal 3.4-5.0 [facility] Comment on above: Performed By: #### T SH, CMP, LIPID ####[facility] [address] [place] [address]Dr. Dedrick Kinsey Albumin/Globulin [Mass ratio] 1.0 {ratio} Normal [facility] Comment on above: Performed By: #### T SH, CMP, LIPID ####[facility] [address] [place] [id number]. Dedrick Kinsey ALP [Catalytic activity/Vol] 84 U/L Normal 46-116 [facility] Comment on above: Performed By: #### T SH, CMP, LIPID ####[facility] [address] [place] [id number]. Dedrick Kinsey ALT [Catalytic activity/Vol] 37 U/L Normal 14-59 [facility] Comment on above: Performed By: #### T SH, CMP, LIPID ####[facility] [address] [place] [id number]. Dedrick Kinsey Anion gap [Moles/Vol] 11.7 mmol/L Normal [facility] Comment on above: Performed By: #### T SH, CMP, LIPID ####[facility] [address] [place] [id number]. Dedrick Kinsey AST [Catalytic activity/Vol] 20 U/L Normal 15-37 [facility] Comment on above: Performed By: #### T SH, CMP, LIPID ####[facility] [address] [place] [address]Dr. Dedrick Kinsey Bilirubin [Mass/Vol] 0.8 mg/dL Normal 0.2-1.0 [facility] Comment on above: Performed By: #### T SH, CMP, LIPID ####[facility] [address] [place] [address]Dr. Dedrick Kinsey Calcium [Mass/Vol] 9.4 mg/dL Normal 8.5-10.1 [facility] Comment on above: Performed By: #### T SH, CMP, LIPID ####[facility] [address] [place], [place] [address]Dr. Dedrick Kinsey Chloride [Moles/Vol] 106 mmol/L Normal 98-107 [facility] Comment on above: Performed By: #### T SH, CMP, LIPID ####[facility] [address] [place], [place] [address]Dr. Dedrick Kinsey CO2 [Moles/Vol] 28.4 mmol/L Normal 21.0-32.0 [facility] Comment on above: Performed By: #### T SH, CMP, LIPID ####[facility] [address] [place], [place] [address]Dr. Dedrick Kinsey Creatinine [Mass/Vol] 0.77 mg/dL Normal 0.55-1.02 [facility] Comment on above: Performed By: #### T SH, CMP, LIPID ####[facility] [address] [place], [place] [address]Dr. Dedrick Kinsey EGFR-AF [place]IZ[place] >60 Normal >=60 [facility] Comment on above: Performed By: #### T SH, CMP, LIPID ####[facility] [address] [place], [place] [address]Dr. Dedrick Kinsey EGFR-NON AF [place]IZ[place] >60 Normal >=60 [facility] Comment on above: Performed By: #### T SH, CMP, LIPID ####[facility] [address] [place], [place] [address]Dr. Dedrick Kinsey Globulin (S) [Mass/Vol] 3.6 g/dL Normal [facility] Comment on above: Performed By: #### T SH, CMP, LIPID ####[facility] [address] [place] [address]Dr. Dedrick Kinsey Glucose [Mass/Vol] 106 mg/dL Normal 74-106 [facility] Comment on above: Performed By: #### T SH, CMP, LIPID ####[facility] [address] [place] [address]Dr. Dedrick Kinsey Potassium [Moles/Vol] 4.1 mmol/L Normal 3.5-5.1 [facility] Comment on above: Performed By: #### T SINTIA, CMP, LIPID ####[facility] [address] [place], [place] [address]Dr. Dedrick Kinsey Protein [Mass/Vol] 7.1 g/dL Normal 6.4-8.2 [facility] Comment on above: Performed By: #### T SINTIA, CMP, LIPID ####[facility] [address] [place], [place] [address]Dr. Dedrick Kinsey Sodium [Moles/Vol] 142 mmol/L Normal 136-145 [facility] Comment on above: Performed By: #### T SH, CMP, LIPID ####[facility] [address] [place], [place] [address]Dr. Dedrick Kinsey Urea nitrogen [Mass/Vol] 10.0 mg/dL Normal 7.0-18.0 [facility] Comment on above: Performed By: #### T SINTIA, CMP, LIPID ####[facility] [address] [place], [place] [address]Dr. Dedrick Kinsey Urea nitrogen/Creatinine [Mass ratio] 13.0 mg/mg Normal [facility] Comment on above: Performed By: #### T SH, CMP, LIPID ####[facility] [address] [place], [place] [address]Dr. Dedrick Kinsey TSHon 05-25-2022 TSH 2.611 uIU/mL Normal 0.358-3.74 0 [facility] Comment on above: Performed By: #### T SH, CMP, LIPID ####[facility] [address] [place], [place] [address]Qx. Dedrick Kinsey VITAMIN D 25 OHon 05-25-2022 VIT D 25-OH 31.7 ng/mL Normal [facility] Comment on above: Performed By: #### V ITAD, FT4 ####[facility] [address] [place], [place] [address]Oy. [facility] VIT D RANGES SEE BELOW Normal [facility] Comment on above: Result Comment: <20 ng/mL Vit D deficient 20 - <30 ng/mL Vit D insufficient 30 - 100 ng/mL Vit D sufficient >100 ng/mL Potential Toxicity Performed By: #### V ITAD, FT4 ####[facility] [address] [place], [place] [address]Ru. Dedrick Kinsey XR CSPINE 2_3 VIEWSon 2022 [...] JEROME AYALA Date: 2022-05-25 11:30 Normal [facility] XR TSPINE 3 VIEWSon 05-26-19 23 XR [...] JEROME AYALA Date: 2022-05-25 11:32 Normal [facility] XR CHEST 2 Von 05-09-2022 XR CHEST [...] JESUS PEREZ Date: 2022-05-09 12:45 Normal [facility] Covid-19 PCR ([facility])on 04-20 SARS-CoV-2 (COVID-19) RNA JAYY+probe Ql (Unsp spec) Not detected Normal NOT DETECTED [facility] Comment on above: Result Comment: When diagnostic [...] for this test is supported by the Dental Billing Specialist of Health and Human Service's declaration [...] longer be used). Performed By: #### [facility] ####[facility] [address] [place], [place] [address]XmChanda Kinsey Basic Metabolic Panelon -2 0-2023 Anion gap [Moles/Vol] 11.2 mmol/L Normal 6.0-15.0 [facility] Comment on above: Order Comment: Reason for Exam HAV (hallux abducto valgus), right Performed By: #### C BC, BMP #### [facility] [address] [place] [id number] [facility] Calcium [Mass/Vol] 9.2 mg/dL Normal 8.2-10.2 [facility] Comment on above: Order Comment: Reason for Exam HAV (hallux abducto valgus), right Result Comment: PERF ORMED BY: [place] [address] PATHOLOGIST ASSOCIATION EXECUTIVE SHRUTHI KIRKPATRICK M.D. Performed By: #### C BC, BMP #### [facility] [address] Chloride [Moles/Vol] 102 mmol/L Normal 95-114 [facility] Comment on above: Order Comment: Reason for Exam HAV (hallux abducto valgus), right Performed By: #### C BC, BMP #### [facility] [address] [place] [id number] [place] CO2 [Moles/Vol] 27.0 mmol/L Normal 22.0-30.0 [facility] Comment on above: Order Comment: Reason for Exam HAV (hallux abducto valgus), right Performed By: #### C BC, BMP #### [facility] [address] [place] [phone] [place] Creatinine [Mass/Vol] 0.80 mg/dL Normal 0.44-1.03 [facility] Comment on above: Order Comment: Reason for Exam HAV (hallux abducto valgus), right Performed By: #### C BC, BMP #### [facility] [address] [place] [phone] [place] Estimated GFR ( Kate > 60 Normal [facility] Comment on above: Order Comment: Reason for Exam HAV (hallux abducto valgus), right Result Comment: GFR estimated reference range: According to KDOQI guidelines, <60 ml/min/1.73m2 is sufficient to diagnose a patient with chronic kidney disease. Performed By: #### C BC, BMP #### [facility] [address] Estimated GFR (Non- Am > 60 Normal [facility] Comment on above: Order Comment: Reason for Exam HAV (hallux abducto valgus), right Performed By: #### C BC, BMP #### [facility] [address] Glucose [Mass/Vol] 99 mg/dL Normal 70-100 [facility] Comment on above: Order Comment: Reason for Exam HAV (hallux abducto valgus), right Result Comment: [facility] Glucose Reference Range is dependent on time and content of last meal. Glucose of more than 200 mg/dL in a nonstressed, ambulatory subject supports the diagnosis of Diabetes Mellitus. ADA recommended reference range Performed By: #### C BC, BMP #### [address] Potassium [Moles/Vol] 4.2 mmol/L Normal 3.5-5.1 [facility] Comment on above: Order Comment: Reason for Exam HAV (hallux abducto valgus), right Performed By: #### C BC, BMP #### [address] Sodium [Moles/Vol] 136 mmol/L Normal 136-146 [facility] Comment on above: Order Comment: Reason for Exam HAV (hallux abducto valgus), right Performed By: #### C BC, BMP #### [place] [id number] [facility] Urea nitrogen [Mass/Vol] 10 mg/dL Normal 9-23 [facility] Comment on above: Order Comment: Reason for Exam HAV (hallux abducto valgus), right Performed By: #### C BC, BMP #### [address] Basophils Auto (Bld) [#/Vol] Ordered By: Yordan Batres on 03-11-2022 Basophils (Bld) [#/Vol] 0.0 10*3/uL 0.0-0.2 [facility] Basophils/100 WBC Auto (Bld) Ordered By: Yordan Batres on 03-11-2022 Basophils/100 WBC (Bld) 0.4 % . [facility] Complete Blood Count Auto Di ffon 03-11-2022 Basophils (Bld) [#/Vol] 0.0 10*3/uL Normal 0.0-0.2 [facility] Comment on above: Order Comment: Reaso n for Exam HAV (hallux abducto valgus), right Result Comment: PERF ORMED BY: [place] [address] PATHOLOGIST [employer]OCI[employer] EXECUTIVE SHRUTHI KIRKPATRICK M.D. Performed By: #### C BC, BMP #### [facility] [address] [place] [address] Basophils/100 WBC (Bld) 0.4 % Normal . [facility] Comment on above: Order Comment: Reaso n for Exam HAV (hallux abducto valgus), right Performed By: #### C BC, BMP #### [facility] [address] [place] [address] [place] Eosinophils (Bld) [#/Vol] 0.1 10*3/uL Normal 0.0-0.45 [facility] Comment on above: Order Comment: Reaso n for Exam HAV (hallux abducto valgus), right Performed By: #### C BC, BMP #### [facility] [address] [place] [address] [place] Eosinophils/100 WBC (Bld) 1.4 % Normal . [facility] Comment on above: Order Comment: Reaso n for Exam HAV (hallux abducto valgus), right Performed By: #### C BC, BMP #### [facility] [address] [place] [address] [place] Erythrocyte distribution width (RBC) [Ratio] 13.1 % Normal 11.9-15.3 [facility] Comment on above: Order Comment: Reaso n for Exam HAV (hallux abducto valgus), right Performed By: #### C BC, BMP #### [address] Hematocrit (Bld) [Volume fraction] 39.5 % Normal 34.0-46.4 [facility] Comment on above: Order Comment: Reaso n for Exam HAV (hallux abducto valgus), right Performed By: #### C BC, BMP #### [address] Hemoglobin (Bld) [Mass/Vol] 13.3 g/dL Normal 11.8-15.4 [facility] Comment on above: Order Comment: Reaso n for Exam HAV (hallux abducto valgus), right Performed By: #### C BC, BMP #### [address] Lymphocytes (Bld) [#/Vol] 1.6 10*3/uL Normal 1.00-4.8 [facility] Comment on above: Order Comment: Reaso n for Exam HAV (hallux abducto valgus), right Performed By: #### C BC, BMP #### [address] Lymphocytes/100 WBC (Bld) 22.0 % Normal . [facility] Comment on above: Order Comment: Reaso n for Exam HAV (hallux abducto valgus), right Performed By: #### C BC, BMP #### [address] MCH (RBC) [Entitic mass] 30.0 pg Normal 24.7-34.3 [facility] Comment on above: Order Comment: Reaso n for Exam HAV (hallux abducto valgus), right Performed By: #### C BC, BMP #### [address] MCV (RBC) [Entitic vol] 88.8 fL Normal 80-100 [facility] Comment on above: Order Comment: Reaso n for Exam HAV (hallux abducto valgus), right Performed By: #### C BC, BMP #### [address] Mean Corpuscular HGB Conc 33.7 g/dL Normal 32.0-35.0 [facility] Comment on above: Order Comment: Reaso n for Exam HAV (hallux abducto valgus), right Performed By: #### C BC, BMP #### [address] Monocytes (Bld) [#/Vol] 0.5 10*3/uL Normal 0.0-0.8 [facility] Comment on above: Order Comment: Reaso n for Exam HAV (hallux abducto valgus), right Performed By: #### C BC, BMP #### [address] Monocytes/100 WBC (Bld) 7.0 % Normal . [facility] Comment on above: Order Comment: Reaso n for Exam HAV (hallux abducto valgus), right Performed By: #### C BC, BMP #### [address] Neutrophils (Bld) [#/Vol] 5.0 10*3/uL Normal 1.8-7.7 [facility] Comment on above: Order Comment: Reaso n for Exam HAV (hallux abducto valgus), right Performed By: #### C BC, BMP #### [address] Neutrophils/100 WBC (Bld) 69.2 % Normal . [facility] Comment on above: Order Comment: Reaso n for Exam HAV (hallux abducto valgus), right Performed By: #### C BC, BMP #### [place] [address] [place] NRBC% 0.2 /100{WBC} Normal 0-0.5 [facility] Comment on above: Order Comment: Reaso n for Exam HAV (hallux abducto valgus), right Performed By: #### C BC, BMP #### [address] Platelet mean volume (Bld) [Entitic vol] 7.6 fL Normal 6.3-10.7 [facility] Comment on above: Order Comment: Reaso n for Exam HAV (hallux abducto valgus), right Performed By: #### C BC, BMP #### [facility] [address] [place] [address] [place] Platelets (Bld) [#/Vol] 212 10*3/uL Normal 150-450 [facility] Comment on above: Order Comment: Reaso n for Exam HAV (hallux abducto valgus), right Performed By: #### C BC, BMP #### [facility] [address] [place] [address] [place] RBC (Bld) [#/Vol] 4.44 10*6/uL Normal 3.60-5.00 [facility] Comment on above: Order Comment: Reaso n for Exam HAV (hallux abducto valgus), right Performed By: #### C BC, BMP #### [facility] [address] [place] [phone] [place] WBC (Bld) [#/Vol] 7.3 10*3/uL Normal 3.8-11.6 [facility] Comment on above: Order Comment: Reaso n for Exam HAV (hallux abducto valgus), right Performed By: #### C BC, BMP #### [facility] [address] [place] [phone] [place] Creatinine and Glomerular fi ltration rate.predicted panel (S/P/Bld)Ordered By: Yordan Batres on 03-11-2022 Creatinine [Mass/Vol] 0.80 mg/dL 0.44-1.03 [facility] ECG 12 lead ECGon 03-11-2022 ECG 12 lead ECG [facility] [place] [address] [place] [address] Electrocardiograph Report Signed Patient: Claudette Ross MR#: [id number] : 1955 Acct:[id number] Age/Sex: 66 / F ADM Date: 03/11/22 Loc: XD Room: Type: DEP CLI Attending Dr: Yordan Batres DPM Ordering [...] Signed By Laura Chavez MD 1801 Normal [facility] Eosinophils Auto (Bld) [#/Vo l]Ordered By: Yordan Batres on 03-11-2022 Eosinophils (Bld) [#/Vol] 0.1 10*3/uL 0.0-0.45 [facility] Eosinophils/100 WBC Auto (Bl d)Ordered By: Yordan Batres on 03-11-2022 Eosinophils/100 WBC (Bld) 1.4 % . [facility] Erythrocyte distribution wid th Auto (RBC) [Ratio]Ordered By: Yordan Batres on 03-11-2022 Erythrocyte distribution width (RBC) [Ratio] 13.1 % 11.9-15.3 [facility] Estimated glomerular filtrat ion rate (GFR) non- AmericanOrdered By: Yordan Batres on 03-11-2022 GFR/1.73 sq M.predicted among non-blacks MDRD (S/P/Bld) [Vol rate/Area] > 60 mL/Min [facility] Hematocrit Auto (Bld) [Volum e fraction]Ordered By: Yordan Batres on 03-11-2022 Hematocrit (Bld) [Volume fraction] 39.5 % 34.0-46.4 [facility] Hemoglobin [Mass/volume] in BloodOrdered By: Yordan Batres on 03-11-2022 Hemoglobin (Bld) [Mass/Vol] 13.3 g/dL 11.8-15.4 [facility] Leukocytes [#/volume] correc slim for nucleated erythrocytes in Blood by Automated counOrdered By: Yordan Batres on 03-11-2022 WBC corrected for nucl RBC Auto (Bld) [#/Vol] 7.3 10*3/uL 3.8-11.6 [facility] Lymphocytes Auto (Bld) [#/Vo l]Ordered By: Yordan Batres on 03-11-2022 Lymphocytes (Bld) [#/Vol] 1.6 10*3/uL 1.00-4.8 [facility] Lymphocytes/100 WBC Auto (Bl d)Ordered By: Yordan Batres on 03-11-2022 Lymphocytes/100 WBC (Bld) 22.0 % . [facility] MCH Auto (RBC) [Entitic mass ]Ordered By: Yordan Batres on 03-11-2022 MCH (RBC) [Entitic mass] 30.0 pg 24.7-34.3 [facility] MCHC Auto (RBC) [Mass/Vol]Or dered By: Yordan Batres on 03-11-2022 MCHC (RBC) [Mass/Vol] 33.7 g/dL 32.0-35.0 [facility] MCV Auto (RBC) [Entitic vol] Ordered By: Yordan Batres on 03-11-2022 MCV (RBC) [Entitic vol] 88.8 fL 80-100 [facility] Monocytes Auto (Bld) [#/Vol] Ordered By: Yordan Batres on 03-11-2022 Monocytes (Bld) [#/Vol] 0.5 10*3/uL 0.0-0.8 [facility] Monocytes/100 WBC Auto (Bld) Ordered By: Yordan Batres on 03-11-2022 Monocytes/100 WBC (Bld) 7.0 % . [facility] Neutrophils Auto (Bld) [#/Vo l]Ordered By: Yordan Batres on 03-11-2022 Neutrophils (Bld) [#/Vol] 5.0 10*3/uL 1.8-7.7 [facility] Neutrophils/100 WBC Auto (Bl d)Ordered By: Yordan Batres on 03-11-2022 Neutrophils/100 WBC (Bld) 69.2 % . [facility] No Panel InformationOrdered By: Yordan Batres on 03-11-2022 Estimated GFR () > 60 mL/Min [facility] Comment on above: GFR estimated refere nce range: According to KDOQI guidelines, <60 ml/min/1.73m2 is sufficient to diagnose a patient with chronic kidney disease. Pharmacy Creatinine Clearance (Chem N/A [facility] Nucleated erythrocytes [Pres ence] in Blood by Automated countOrdered By: Yordan Batres on 03-11-2022 Nucleated RBC Auto Ql (Bld) 0.2 /100{WBC} 0-0.5 [facility] Platelet mean volume Auto (B ld) [Entitic vol]Ordered By: Yordan Batres on 03-11-2022 Platelet mean volume (Bld) [Entitic vol] 7.6 fL 6.3-10.7 [facility] Platelets Auto (Bld) [#/Vol] Ordered By: Yordan Batres on 03-11-2022 Platelets (Bld) [#/Vol] 212 10*3/uL 150-450 [facility] RBC Auto (Bld) [#/Vol]Ordere d By: Yordan Batres on 03-11-2022 RBC (Bld) [#/Vol] 4.44 10*6/uL 3.60-5.00 [facility] Serum or plasma anion gap de terminationOrdered By: Yordan Batres on 03-11-2022 Anion gap [Moles/Vol] 11.2 mmol/L 6.0-15.0 [facility] Serum or plasma calcium yaz urement (mass/volume)Ordered By: Yordan Batres on 03-11-2022 Calcium [Mass/Vol] 9.2 mg/dL 8.2-10.2 [facility] Serum or plasma chloride ady surement (moles/volume)Ordered By: Yordan Batres on 03-11-2022 Chloride [Moles/Vol] 102 mmol/L 95-114 [facility] Serum or plasma glucose yaz urement (mass/volume)Ordered By: Yordan Batres on 03-11-2022 Glucose [Mass/Vol] 99 mg/dL 70-100 [facility] Comment on above: ADA recommended refe rence rangeRandom Glucose Reference Range is dependent on time and content of last meal. Glucose of more than 200 mg/dL in a nonstressed, ambulatory subject supports the diagnosis of Diabetes Mellitus. Serum or plasma potassium me asurement (moles/volume)Ordered By: Yordan Batres on 03-11-2022 Potassium [Moles/Vol] 4.2 mmol/L 3.5-5.1 [facility] Serum or plasma sodium measu rement (moles/volume)Ordered By: Yordan Batres on 03-11-2022 Sodium [Moles/Vol] 136 mmol/L 136-146 [facility] Serum or plasma total carbon dioxide measurement (moles/volume)Ordered By: Yordan Batres on 03-11-2022 CO2 [Moles/Vol] 27.0 mmol/L 22.0-30.0 [facility] Serum or plasma urea nitroge n measurement (mass/volume)Ordered By: Yordan Batres on 03-11-2022 Urea nitrogen [Mass/Vol] 10 mg/dL 9-23 [facility] WBC Auto (Bld) [#/Vol]Ordere d By: Yordan Batres on 03-11-2022 WBC (Bld) [#/Vol] 7.3 10*3/uL 3.8-11.6 [facility] XR chest 2V*on 03-11-2022 XR chest 2V* [facility] [place] [address] XRay Report Signed Patient: Claudette Ross MR#: [id number] : 1955 Acct:[id number] Age/Sex: 66 / F ADM Date: 03/11/22 Loc: XD Room: Type: [facility] Attending Dr: Yordan Batres DPM Copies to: Yordan Batres DPM Ordering Provider: [...] Carmela Carlos M.D.03/11/2022 2:29 PM Dictation Location: [place] [address] Transcribed By: [facility] 03/11/22 1429 Dictated By: Carmela Carlos MD 03/11/22 1428 Signed By: 03/11/22 142 Normal [facility] LIPID PROFILEon 08-09-2021 CHOL-HDL RATIO NORM SEE BELOW Normal [facility] Comment on above: Result Comment: 3.3 - 4.4 LOW RISK 4.4 - 7.1 AVERAGE RISK 7.1 - 11.0 MODERATE RISK >11.0 HIGH RISK Performed By: #### L IPID, AST, ALT #### [facility] [address] [address] [address] Dedrick Kinsey Cholesterol [Mass/Vol] 195 mg/dL Normal <=200 [facility] Comment on above: Performed By: #### L IPID, AST, ALT #### [facility] [address] [address] [address] Dedrick Kinsey Cholesterol in HDL [Mass/Vol] 47 mg/dL Normal 40-60 [facility] Comment on above: Performed By: #### L IPID, AST, ALT #### [facility] [address] [address] [address] Dedrick Kinsey Cholesterol in LDL [Mass/Vol] 130.0 mg/dL Normal [facility] Comment on above: Performed By: #### L IPID, AST, ALT #### [facility] [address] [address] [address] Dedrick Kinsey Cholesterol.total/Cho lesterol in HDL [Mass ratio] 4.1 {ratio} Normal [facility] Comment on above: Performed By: #### L IPID, AST, ALT #### [facility] [address] [address] [address] Dedrick Kinsey HDL NORMAL > or = 60 mg/dl - LO W CARDIOVASCULAR RISK <40 mg/dl - HIGH CARDIOVASCULAR RISK Normal [facility] Comment on above: Performed By: #### L IPID, AST, ALT #### [facility] [address] [place] [address] Dr. Dedrick Kinsey LDL CALC NORMAL SEE BELOW Normal [facility] Comment on above: Result Comment: <100 mg/dl OPTIMAL 100 - 129 mg/dl NEAR OR ABOVE OPTIMAL 130 - 159 mg/dl BORDERLINE HIGH 160 - 189 mg/dl HIGH >190 mg/dl VERY HIGH Performed By: #### L IPID, AST, ALT #### [facility] [address] [address] [address] Dedrick Kinsey Triglyceride [Mass/Vol] 90 mg/dL Normal <=150 [facility] Comment on above: Performed By: #### L IPID, AST, ALT #### [facility] [address] [place] [address] Dr. Dedrick Kinsey VLDL CALC 18.0 mg/dL Normal [facility] Comment on above: Performed By: #### L IPID, AST, ALT #### [facility] [address] [place] [address] Dr. Dedrick Strange 08-09-2021 AST [Catalytic activity/Vol] 16 U/L Normal 15-37 [facility] Comment on above: Performed By: #### L IPID, AST, ALT #### [facility] [address] [place] [address] Dr[facility] ALT [Catalytic activity/Vol] 26 U/L Normal 14-59 [facility] Comment on above: Performed By: #### L IPID, AST, ALT #### [facility] [id number] Dedrick Kinsey MG MAMM SCREEN 3D GERARD CADon 06-24-2021 MG MAMM SCREEN 3D GERARD CAD Patient: CLAUDETTE ROSS Exam Date: 06/24/2021 : 1955 Gender:F Ordering : RODNEY JESSICA [facility] Admission #: [id number] Family : Order #: [id number] CLICK HERE TO VIEW EXAM RADIOLOGY REPORT [...] pancreatic cancer at age 58. LOCATION: [facility] BREAST COMPOSITION: Scattered areas fibroglandular density. FINDINGS: [...] MD on 06/24/2021 at 11:40 Normal [facility] XR DEXA BONE DENSITYon 06-24 XR DEXA BONE DENSITY DEXA Bone Density S tudy CLINICAL: Evaluate bone mineral density. Postmenopausal COMPARISON: None FINDINGS: The bone density study was assessed by dual-energy x-ray absorptiometry with the [employer] scanner. The test results are expressed in [...] by: JACKELIN BATRES Date: 2021-06-24 11:38 Normal [facility] XR Chest 2 Viewson 2 XR Chest [...] Electronically Signed in Other Vendor System) Normal [facility] .eGFRon 01-26-2021 eGFR Non-AA >60 Normal >=60 [facility] Comment on above: Order Comment: [...] years Performed By: #### E GFR #### [address] [address] eGFR AA >60 Normal >=60 [facility] Comment on above: Order Comment: Order added by Discern rule Result Comment: See comment. Performed By: #### E GFR #### [address] [address] AMI Initon 01-26-2021 Initial Myoglobin 35.8 ng/mL Normal 14.3-65.8 [facility] Comment on above: Performed By: #### A MI1 #### [place] [address] Initial Troponin <0.03 Normal 0.00-0.03 [facility] Comment on above: Result Comment: An i ncreased Troponin-I value, in the absence of myocardial ischemia, may indicate other etiologies of cardiac damage. Performed By: #### A MI1 #### [place] [address] CBC w/ Diffon 01-26-2021 Erythrocyte distribution width (RBC) [Ratio] 13.1 % Normal 11.6-14.8 [facility] Comment on above: Performed By: #### C BC #### [place] [address] Hematocrit (Bld) [Volume fraction] 37.4 % Normal 36.0-46.0 [facility] Comment on above: Performed By: #### C BC #### [place] [address] Hemoglobin (Bld) [Mass/Vol] 13.1 g/dL Normal 12.0-16.0 [facility] Comment on above: Performed By: #### C BC #### [place] [address] MCH (RBC) [Entitic mass] 30.2 pg Normal 27.0-35.0 [facility] Comment on above: Performed By: #### C BC #### [place] [address] MCHC 35.0 % Normal 31.0-37.0 [facility] Comment on above: Performed By: #### C BC #### [place] [address] MCV (RBC) [Entitic vol] 86.2 fL Normal 80.0-100.0 [facility] Comment on above: Performed By: #### C BC #### [place] [address] Platelet 196 x10*3/mcL Normal 150-350 [facility] Comment on above: Performed By: #### C BC #### [place] [address] Platelet mean volume (Bld) [Entitic vol] 7.4 fL Low 7.5-11.5 [facility] Comment on above: Performed By: #### C BC #### [place] [address] RBC 4.34 x10*6/mcL Normal 3.80-5.20 [facility] Comment on above: Performed By: #### C BC #### [place] [address] WBC 5.0 x10*3/mcL Normal 4.5-11.0 [facility] Comment on above: Performed By: #### C BC #### [place] [address] CMPon 01-26-2021 Albumin [Mass/Vol] 3.6 g/dL Low 3.7-5.3 [facility] Comment on above: Performed By: #### C OMP #### [place] [address] Albumin/Globulin [Mass ratio] 1.2 {ratio} Normal 1.1-2.2 [facility] Comment on above: Performed By: #### C OMP #### [place] [address] Alk Phos 68 IU/L Normal 34-104 [facility] Comment on above: Performed By: #### C OMP #### [place] [address] ALT [Catalytic activity/Vol] 21 U/L Normal 7-52 [facility] Comment on above: Performed By: #### C OMP #### [place] [address] Anion gap [Moles/Vol] 11 mmol/L Normal 7-17 [facility] Comment on above: Performed By: #### C OMP #### [place] [address] AST [Catalytic activity/Vol] 19 U/L Normal 13-39 [facility] Comment on above: Performed By: #### C OMP #### [place] [address] Bili Total 0.8 mg/dL Normal 0.3-1.0 [facility] Comment on above: Performed By: #### C OMP #### [address] [address] Calcium [Mass/Vol] 8.9 mg/dL Normal 8.6-10.3 [facility] Comment on above: Performed By: #### C OMP #### [place] [address] Chloride 105 IU/L Normal 98-107 [facility] Comment on above: Performed By: #### C OMP #### [address] [address] CO2 [Moles/Vol] 27 mmol/L Normal 21-31 [facility] Comment on above: Performed By: #### C OMP #### [address] [address] Creatinine [Mass/Vol] 0.7 mg/dL Normal 0.6-1.2 [facility] Comment on above: Performed By: #### C OMP #### [address] [address] Glucose [Mass/Vol] 105 mg/dL High 70-99 [facility] Comment on above: Performed By: #### C OMP #### [address] [address] Potassium [Moles/Vol] 3.4 mmol/L Normal 3.4-4.8 [facility] Comment on above: Performed By: #### C OMP #### [address] [address] Protein [Mass/Vol] 6.6 g/dL Normal 6.0-8.3 [facility] Comment on above: Performed By: #### C OMP #### [address] [address] Sodium [Moles/Vol] 140 mmol/L Normal 136-145 [facility] Comment on above: Performed By: #### C OMP #### [place] [address] Urea nitrogen [Mass/Vol] 10 mg/dL Normal 7-25 [facility] Comment on above: Performed By: #### C OMP #### [place] [address] Urea nitrogen/Creatinine [Mass ratio] 14.3 mg/mg Normal 10.0-20.0 [facility] Comment on above: Performed By: #### C OMP #### [place] [address] COV19 Rapidon 01-26-2021 Employed in healthcare? No [facility] Comment on above: Performed By: #### C [id number] #### [place] [address] Group care resident? No [facility] Comment on above: Performed By: #### C [id number] #### [place] [address] In ICU? No [facility] Comment on above: Performed By: #### C [id number] #### [place] [address] status? Not [facility] Comment on above: Performed By: #### C [id number] #### [place] [address] Reason for Rapid Test COVID Exposure [facility] Comment on above: Performed By: #### C [id number] #### [place] [address] SARS-CoV-2 (COVID-19) RNA JAYY+probe Ql (Unsp spec) Positive Critically abnormal Negative [facility] Comment on above: Result Comment: Test completion time: 1554 Called date and time: 01/26/2021 15:54:14 EST Result called to and read back by: LINDA SALAS RN, XEMD (First, Last, Title, Location) The 2019 novel [...] using the ID NOW COVID-19 test by [employer], which has received Emergency Use Authorization (EUA) [...] following links: Fact Sheet for HealthCare Providers: https://www.fda.gov/media/636142/download Fact Sheet for Patients: https://www.fda.gov/media/261079/download Performed By: #### C [id number] #### [address] [address] SARS-CoV-2 (COVID-19) RNA JAYY+probe Ql (Unsp spec) No Normal [facility] Comment on above: Performed By: #### C [id number] #### [address] [address] Symptomatic as defined by CDC? Yes Normal [facility] Comment on above: Performed By: #### C [id number] #### [address] [address] Diff Autoon 01-26-2021 Baso Absolute 0.0 x10*3/mcL Normal 0.0-0.2 [facility] Comment on above: Performed By: #### . Automated Diff #### [address] [address] Basophils/100 WBC (Bld) 0.4 % Normal 0.0-1.5 [facility] Comment on above: Performed By: #### . Automated Diff #### [address] [address] Eos Absolute 0.1 x10*3/mcL Normal 0.0-0.4 [facility] Comment on above: Performed By: #### . Automated Diff #### [place] [address] Eosinophils/100 WBC (Bld) 1.3 % Normal 0.0-5.4 [facility] Comment on above: Performed By: #### . Automated Diff #### [place] [address] Lymph Absolute 1.0 x10*3/mcL Normal 1.0-4.8 [facility] Comment on above: Performed By: #### . Automated Diff #### [place] [address] Lymphocytes/100 WBC (Bld) 19.2 % Low 27.2-40.8 [facility] Comment on above: Performed By: #### . Automated Diff #### [place] [address] [place] Absolute 0.6 x10*3/mcL Normal 0.1-1.1 [facility] Comment on above: Performed By: #### . Automated Diff #### [address] [address] Monocytes/100 WBC (Bld) 12.4 % High 3.7-11.9 [facility] Comment on above: Performed By: #### . Automated Diff #### [place] [address] Neutro Absolute 3.3 x10*3/mcL Normal 1.8-7.7 [facility] Comment on above: Performed By: #### . Automated Diff #### [place] [address] Neutro Auto 66.7 % Normal 47.2-70.8 [facility] Comment on above: Performed By: #### . Automated Diff #### [address] [address] ED Clinical Summaryon 2020 ED Clinical Summary (Inserted Image. Polina ble to display) [address] [address] ED Clinical Summary Person Information Name: Claudette Ross[place] Age: 65 Years : 1955 Sex: Female PCP: Nidhi Michaels MD Marital Status: Single Phone: Race: White Ethnicity: Not or Language: Cook Islander Visit Reason: Chest pain; Chest pain - Cardiac Acuity: 3 Enc Type: Emergency Med Service: Emergency Medicine Arrival: 01/26/2021 13:48:22 Discharge: 01/26/2021 17:06:00 LOS: 000 03:18 Checkin: 01/26/2021 13:48:22 Checkout: 01/26/2021 17:06:00 Dispo Type: Home or Self Care Address: [address] [place] [address] Provider Notes: Diagnosis: 1:Pneumonia due to COVID-19 [...] range between ( 27.2 and 40.8 ) [place] Auto: 12.4 % -- Normal range between [...] range between ( 36.0 and 46.0 ) [place] Absolute: 0.6 x10 MCH: 30.2 pg -- [...] This Visit Final Med List: New Medications [facility]/pharmacy #[id number], [address], [place] [id number], [phone] hydrocodone-acetaminophen ([place] 5 mg-325 mg oral tablet) 1 Tabs [...] 2 times a day. Last Dose: [facility][id number], [address], [place] [id number], [phone] hydrocodone-acetaminophen ([place] 5 mg-325 mg oral tablet) 1 Tabs [...] Unassigned Chandni (more content not included)... Normal [facility] ED Note-Physicianon 01-27-20 ED Note-Physician [...] tabs, 0 Refill(s), 01/29/21 17:00:00 EST, [id number] 2. Acute chest wall pain Ordered: hydrocodone-acetaminophen, 1 tabs, Oral, q4hr, PRN, X 3 days, # 18 tabs, 0 Refill(s), 01/29/21 17:00:00 EST, [id number] Orders: predniSONE, See Instructions, 6-5-4-3-2-1, # 21 tabs, 0 Refill(s), [id number] - ED Professional Level 4 Discharge Patient Refresh vitals and sections below: Problem List/Past Medical History Ongoing Depression Hypertension Hypothyroid Historical No qualifying data Procedure/Surgical History Elbow Foot Hysterectomy Neck Medications Inpatient No active inpatient medications Home [place] 5 mg-325 mg oral tablet, 1 tabs, [...] 66.7 Lymph Auto 01/26/21 14:14 19.2 Low [place] Auto 01/26/21 14:14 12.4 High Eos Auto 01/26/21 14:14 1.3 Basophil Auto 01/26/21 14:14 0.4 Neutro Absolute 01/26/21 14:14 3.3 Lymph Absolute 01/26/21 14:14 1.0 [place] Absolute 01/26/21 14:14 0.6 Eos Absolute 01/26/21 14:14 0.1 Baso Absolute 01/26/21 14:14 0.0 Routine Chemistry LATEST RESULTS Sodium Lvl 01/26/21 14:14 140 Potassium Lvl 01/26/21 14:14 3.4 Chloride 01/26/21 14:14 105 CO2 01/26/21 14:14 27 Anion Gap 01/26/21 14:14 11 Glucose Lvl 01/26/21 14:14 105 High BUN 01/26/21 14: (more content not included)... Normal [facility] TSH reflex Free T4on 021 TSH reflex Free T4 1.935 mcIU/mL Normal 0.490-4. 67 0 [facility] Comment on above: Performed By: #### L 404.9100, L404.7150, L400.0065 #### Main Laboratory ([facility]) [address] [place] [address] Arnulfo Little MD Vitamin B12on 10-27-2020 Cobalamin (Vitamin B12) [Mass/Vol] 135 pg/mL Low 180-914 [facility] Comment on above: Result Comment: B12 level of 145 - 180 is considered Indeterminate and level of <145 is considered Deficient. Performed By: #### L 404.9100, L404.7150, L400.0065 #### Main Laboratory ([facility]) [address] [place] [address] Arnulfo Little MD Vitamin D,25-hydroxy (Total) on 10-27-2020 25(OH) Vitamin D,Total 28.50 ng/mL Low 30.00-100. 00 [facility] Comment on above: Result Comment: Opti mal values are established by the Clinical Guidelines Subcommittee of the Endocrine Society Task Force. (Journal of Clinical Endocrinology & Metabolism,2011;96) Status Vitamin D Concentration Range ------- Deficient <20 Insufficient 20 - 30 Sufficient 30 - 100 Performed By: #### L 404.9100, L404.7150, L400.0065 #### Main Laboratory ([facility]) [address] [place] [address] Arnulfo Little MD Vitamin D,1,25-Dihydroxyon 0 10-21-2020 Vitamin D,1,25-Dihydroxy 74 pg/mL Normal 18-78 [facility] Comment on above: Result Comment: ---- ADDITIONAL INFORMATION This test was developed and its performance characteristics determined by [facility] in a manner consistent with CLIA requirements. This test has not been cleared or approved by the U.S. Food and Drug Administration. Test Performed by: [facility] [address] [place] [address] [employer] Repairer: Rakan Kim M.D. Ph.D.; CLIA# [id number] Performed By: #### L 922.1720 #### [facility] [employer] [address] [place] [address] CBC with Differentialon 08-2 7-2021 Abs Baso Count 0 /cmm Normal 0-200 [facility] Comment on above: Performed By: #### L 100.0000 #### Main Laboratory ([facility]) [address] [place] [address] Arnulfo Little MD Abs Eos Count 100 /cmm Normal 0-500 [facility] Comment on above: Performed By: #### L 100.0000 #### Main Laboratory ([facility]) [address] [place] [address] Arnulfo Little MD Abs Lymph Count 1500 /cmm Normal 5169-0315 [facility] Comment on above: Performed By: #### L 100.0000 #### Main Laboratory ([facility]) [address] [place] [address] Arnulfo Little MD Abs [place] Count 400 /cmm Normal 0-800 [facility] Comment on above: Performed By: #### L 100.0000 #### Main Laboratory ([facility]) [address] [place] [address] Arnulfo Little MD Abs Neut Count 3900 /cmm Normal 2284-4970 [facility] Comment on above: Performed By: #### L 100.0000 #### Main Laboratory ([facility]) [address] [place] [address] Arnulfo Little MD Basophils/100 WBC (Bld) 0.5 % Normal 0-2 [facility] Comment on above: Performed By: #### L 100.0000 #### Main Laboratory ([facility]) [address] [place] [address] Arnulfo Little MD EOS-Auto Diff 1.5 % Normal 0-6 [facility] Comment on above: Performed By: #### L 100.0000 #### Main Laboratory ([facility]) [address] [place] [address] Arnulfo Little MD Erythrocyte distribution width (RBC) [Ratio] 13.7 % Normal 12.0-16.0 [facility] Comment on above: Performed By: #### L 100.0000 #### Main Laboratory ([facility]) [address] [place] [address] Arnulfo Little MD Hematocrit (Bld) [Volume fraction] 39.3 % Normal 35.0-44.0 [facility] Comment on above: Performed By: #### L 100.0000 #### Main Laboratory ([facility]) [address] [place] [address] Arnulfo Little MD Hemoglobin (Bld) [Mass/Vol] 13.7 g/dL Normal 12.0-15.0 [facility] Comment on above: Performed By: #### L 100.0000 #### Main Laboratory ([facility]) [address] [place] [address] Arnulfo Little MD Lymphocytes/100 WBC (Bld) 25.3 % Normal 15-45 [facility] Comment on above: Performed By: #### L 100.0000 #### Main Laboratory ([facility]) [address] [place] [place] [address] Arnulfo Little MD MCH (RBC) [Entitic mass] 30.9 pg Normal 27.5-33.0 [facility] Comment on above: Performed By: #### L 100.0000 #### Main Laboratory ([facility]) [address] [place] [address] Arnulfo Little MD MCHC (RBC) [Mass/Vol] 34.9 g/dL Normal 33.0-36.0 [facility] Comment on above: Performed By: #### L 100.0000 #### Main Laboratory ([facility]) [address] [place] [address] Arnulfo Little MD MCV 88.6 CU JAMES Normal 80-97 [facility] Comment on above: Performed By: #### L 100.0000 #### Main Laboratory ([facility]) [address] [place] [address] Arnulfo Little MD [place]- Auto Diff 6.8 % Normal 2-10 [facility] Comment on above: Performed By: #### L 100.0000 #### Main Laboratory ([facility]) [address] [place] [address] Arnulfo Little MD Neut-Auto Diff 65.9 % Normal 40-70 [facility] Comment on above: Performed By: #### L 100.0000 #### Main Laboratory ([facility]) [address] [place] [address] Arnulfo Little MD NRBC-Auto 0.1 /100 WBC Normal <1 [facility] Comment on above: Performed By: #### L 100.0000 #### Main Laboratory ([facility]) [address] [place] [address] Arnulfo Little MD Platelet Count 201 th/cmm Normal 150-400 [facility] Comment on above: Performed By: #### L 100.0000 #### Main Laboratory ([facility]) [address] [place] [address] Arnulfo Little MD RBC 4.44 mil/cmm Normal 4.00-5.10 [facility] Comment on above: Performed By: #### L 100.0000 #### Main Laboratory ([facility]) [address] [place] [address] Arnulfo Little MD WBC 5.9 th/cmm Normal 4.4-10.5 [facility] Comment on above: Performed By: #### L 100.0000 #### Main Laboratory ([facility]) [address] [place] [address] Arnulfo Little MD Comprehensive Metabolic Pane sandeep 10-16-2020 Albumin [Mass/Vol] 3.9 g/dL Normal 3.5-5.0 [facility] Comment on above: Order Comment: Is Pa tient Fasting? Yes Performed By: #### L 400.0076, L400.0400 #### Main Laboratory ([facility]) [address] [place] [address] Arnulfo Little MD Albumin/Globulin [Mass ratio] 1.3 {ratio} Low 1.5-2.5 [facility] Comment on above: Order Comment: Is Pa tient Fasting? Yes Performed By: #### L 400.0076, L400.0400 #### Main Laboratory ([facility]) [address] [place] [address] Arnulfo Little MD Alk Phos 83 IU/L Normal 39-118 [facility] Comment on above: Order Comment: Is Pa tient Fasting? Yes Performed By: #### L 400.0076, L400.0400 #### Main Laboratory ([facility]) [address] [place] [address] Arnulfo Little MD ALT [Catalytic activity/Vol] 16 U/L Normal 10-40 [facility] Comment on above: Order Comment: Is Pa tient Fasting? Yes Performed By: #### L 400.0076, L400.0400 #### Main Laboratory ([facility]) [address] [place] [address] Arnulfo Little MD Anion gap [Moles/Vol] 8 mmol/L Normal 4-12 [facility] Comment on above: Order Comment: Is Pa tient Fasting? Yes Performed By: #### L 400.0076, L400.0400 #### Main Laboratory ([facility]) [address] [place] [address] Arnulfo Little MD AST [Catalytic activity/Vol] 15 U/L Normal 15-41 [facility] Comment on above: Order Comment: Is Pa tient Fasting? Yes Performed By: #### L 400.0076, L400.0400 #### Main Laboratory ([facility]) [address] [place] [address] Arnulfo Little MD Bili,Total 0.6 mg/dL Normal 0.2-1.0 [facility] Comment on above: Order Comment: Is Pa tient Fasting? Yes Performed By: #### L 400.0076, L400.0400 #### Main Laboratory ([facility]) [address] [place] [address] Arnulfo Little MD Calcium [Mass/Vol] 9.20 mg/dL Normal 8.8-10.5 [facility] Comment on above: Order Comment: Is Pa tient Fasting? Yes Performed By: #### L 400.0076, L400.0400 #### Main Laboratory ([facility]) [address] [place] [address] Arnulfo Little MD Chloride [Moles/Vol] 105 mmol/L Normal 101-111 [facility] Comment on above: Order Comment: Is Pa tient Fasting? Yes Performed By: #### L 400.0076, L400.0400 #### Main Laboratory ([facility]) [address] [place] [address] Arnulfo Little MD CO2 [Moles/Vol] 29 mmol/L Normal 21-32 [facility] Comment on above: Order Comment: Is Pa tient Fasting? Yes Performed By: #### L 400.0076, L400.0400 #### Main Laboratory ([facility]) [address] [place] [address] Arnulfo Little MD Creatinine [Mass/Vol] 0.85 mg/dL Normal 0.60-1.30 [facility] Comment on above: Order Comment: Is Pa tient Fasting? Yes Performed By: #### L 400.0076, L400.0400 #### Main Laboratory ([facility]) [address] [place] [address] Arnulfo Little MD GFR Calculation > 60 Normal [facility] Comment on above: Order Comment: Is Pa tient Fasting? Yes Result Comment: [employer] marky Kidney Disease stages by NKDF Stage eGFR I >90 II 60-89 III 30-59 IV 15-29 V <15 or dialysis AGE(years) AVERAGE GFR 60-69 85 ml/min/1.73 square meters Note:This result is normalized to 1.73 square meter body surface area. Height and weight are not factored. Performed By: #### L 400.0076, L400.0400 #### Main Laboratory ([facility]) [address] [place] [address] Arnulfo Little MD Glucose [Mass/Vol] 100 mg/dL Normal 70-110 [facility] Comment on above: Order Comment: Is Pa tient Fasting? Yes Result Comment: *Thi s reference range applies to fasting specimens only. Performed By: #### L 400.0076, L400.0400 #### Main Laboratory ([facility]) [address] [place] [address] Arnulfo Little MD Potassium [Moles/Vol] 3.7 mmol/L Normal 3.6-5.0 [facility] Comment on above: Order Comment: Is Pa tient Fasting? Yes Performed By: #### L 400.0076, L400.0400 #### Main Laboratory ([facility]) [address] [place] [address] Arnulfo Little MD Protein [Mass/Vol] 6.8 g/dL Normal 6.2-8.0 [facility] Comment on above: Order Comment: Is Pa tient Fasting? Yes Performed By: #### L 400.0076, L400.0400 #### Main Laboratory ([facility]) [address] [place] [address] Arnulfo Ltitle MD Sodium [Moles/Vol] 142 mmol/L Normal 135-145 [facility] Comment on above: Order Comment: Is Pa tient Fasting? Yes Performed By: #### L 400.0076, L400.0400 #### Main Laboratory ([facility]) [address] [place] [address] Arnulfo Little MD Urea nitrogen [Mass/Vol] 10 mg/dL Normal 7-20 [facility] Comment on above: Order Comment: Is Pa tient Fasting? Yes Performed By: #### L 400.0076, L400.0400 #### Main Laboratory ([facility]) [address] [place] [address] Arnulfo Little MD Lipid Panelon 10-16-2020 Chol/HDL Risk 4.0 Normal 4.0-4.4 [facility] Comment on above: Order Comment: Is Pa tient Fasting? Yes Performed By: #### L 400.0076, L400.0400 #### Main Laboratory ([facility]) [address] [place] [address] Arnulfo Little MD Cholesterol [Mass/Vol] 160 mg/dL Normal <200 [facility] Comment on above: Order Comment: Is Pa tient Fasting? Yes Performed By: #### L 400.0076, L400.0400 #### Main Laboratory ([facility]) [address] [place] [id number] Arnulfo Little MD Cholesterol in HDL [Mass/Vol] 40 mg/dL Normal [facility] Comment on above: Order Comment: Is Pa tient Fasting? Yes Result Comment: The National Cholesterol Education Program (NCEP) has set the following guidelines (reference values) for cholesterol, HDL: Low: <40 mg/dL Normal: 40-60 mg/dL High: >60 mg/dL Performed By: #### L 400.0076, L400.0400 #### Main Laboratory ([facility]) [address] [place] [address] Arnulfo Little MD Cholesterol in LDL [Mass/Vol] 104 mg/dL High [facility] Comment on above: Order Comment: Is Pa tient Fasting? Yes Result Comment: The National Cholesterol Education Program (NCEP) has set the following guidelines (reference values) for cholesterol, LDL: Desirable (optimal): <100 mg/dL Low Risk (near optimal): 100-129 mg/dL Borderline high: 130-159 mg/dL High: 160-189 mg/dL Very high: >=190 mg/dL Performed By: #### L 400.0076, L400.0400 #### Main Laboratory ([facility]) [address] [place] [address] Arnulfo Little MD Cholesterol in VLDL [Mass/Vol] 20 mg/dL Normal <39 [facility] Comment on above: Order Comment: Is Pa tient Fasting? Yes Performed By: #### L 400.0076, L400.0400 #### Main Laboratory ([facility]) [address] [place] [address] Arnulfo Little MD dLDL/HDL RISK 2.6 Normal <3.1 [facility] Comment on above: Order Comment: Is Pa tient Fasting? Yes Performed By: #### L 400.0076, L400.0400 #### Main Laboratory ([facility]) [address] [place] [address] Arnulfo Little MD Triglyceride [Mass/Vol] 102 mg/dL Normal <150 [facility] Comment on above: Order Comment: Is Pa tient Fasting? Yes Performed By: #### L 400.0076, L400.0400 #### Main Laboratory ([facility]) [address] [place] [address] Arnulfo Little MD BASIC METABOLIC PANELon 02-20 Calcium [Mass/Vol] 8.8 mg/dL Normal 8.6-10.3 [facility] Comment on above: Order Comment: No: D o not add to previous draw Performed By: #### 3 5200, 20226, 61249, 83271 #### [facility] [address] [place] [address], [facility] Chloride [Moles/Vol] 106 mmol/L Normal 98-107 [facility] Comment on above: Order Comment: No: D o not add to previous draw Performed By: #### 3 5200, 72323, 09993, 79338 #### [facility] [address] [place] [address], [place] CO2 [Moles/Vol] 30 mmol/L Normal 21-31 [facility] Comment on above: Order Comment: No: D o not add to previous draw Performed By: #### 3 5200, 29480, 18912, 74443 #### [facility] [address] [place] [address], [place] Creatinine [Mass/Vol] 0.80 mg/dL Normal 0.60-1.20 [facility] Comment on above: Order Comment: No: D o not add to previous draw Performed By: #### 3 5200, 73458, 88931, 44494 #### [facility] [address] [place] [address], [place] GFR/1.73 sq M predicted among blacks MDRD (S/P/Bld) [Vol rate/Area] mL/min/{1.73_m2} Normal >60 [facility] Comment on above: Order Comment: No: D o not add to previous draw Performed By: #### 3 5200, 73372, 58670, 50752 #### [facility] [address] [place] [address], [place] GFR/1.73 sq M predicted among non-blacks MDRD (S/P/Bld) [Vol rate/Area] mL/min/{1.73_m2} Normal >60 [facility] Comment on above: Order Comment: No: D o not add to previous draw Performed By: #### 3 5200, 46042, 33400, 80007 #### [facility] [address] [place] [address], [place] Glucose [Mass/Vol] 102 mg/dL High 70-100 [facility] Comment on above: Order Comment: No: D o not add to previous draw Performed By: #### 3 5200, 43784, 44105, 15378 #### [facility] [address] [place] [address], [facility] Potassium [Moles/Vol] 3.9 mmol/L Normal 3.5-5.1 [facility] Comment on above: Order Comment: No: D o not add to previous draw Performed By: #### 3 5200, 72145, 22765, 30810 #### [facility] [address] [place] [address], [facility] Sodium [Moles/Vol] 140 mmol/L Normal 136-145 [facility] Comment on above: Order Comment: No: D o not add to previous draw Performed By: #### 3 5200, 83510, 85649, 05971 #### [facility] [address] [place] [address], [facility] Urea nitrogen [Mass/Vol] 12 mg/dL Normal 7-25 [facility] Comment on above: Order Comment: No: D o not add to previous draw Performed By: #### 3 5200, 61232, 76581, 98545 #### [facility] [address] [place] [address], [facility] CBC COMPLETE BLOOD COUNTon 0 - Erythrocyte distribution width (RBC) [Ratio] 13.2 % Normal 11.5-15.0 [facility] Comment on above: Order Comment: No: D o not add to previous draw Performed By: #### 5 0608 #### [facility] [address] [place] [id number], [facility] Hematocrit (Bld) [Volume fraction] 38.1 % Normal 36.0-45.0 [facility] Comment on above: Order Comment: No: D o not add to previous draw Performed By: #### 5 0608 #### [facility] [address] [place] [id number], [facility] Hemoglobin (Bld) [Mass/Vol] 12.2 g/dL Normal 12.0-15.0 [facility] Comment on above: Order Comment: No: D o not add to previous draw Performed By: #### 5 0608 #### [facility] [address] MCH (RBC) [Entitic mass] 29.5 pg Normal 27.0-33.0 [facility] Comment on above: Order Comment: No: D o not add to previous draw Performed By: #### 5 0608 #### [facility] [address] MCHC (RBC) [Mass/Vol] 32.0 g/dL Normal 32.0-35.0 [facility] Comment on above: Order Comment: No: D o not add to previous draw Performed By: #### 5 0608 #### [facility] [address] MCV (RBC) [Entitic vol] 92.0 fL Normal 82.0-98.0 [facility] Comment on above: Order Comment: No: D o not add to previous draw Performed By: #### 5 0608 #### [facility] [address] [facility]. [address] Nucleated RBC/100 WBC (Bld) [Ratio] 0 % Normal 0-0 [facility] Comment on above: Order Comment: No: D o not add to previous draw Performed By: #### 5 0608 #### [facility] [address] [facility] [address], [facility] PLAT CNT 159 10*3/uL Normal 150-400 [facility] Comment on above: Order Comment: No: D o not add to previous draw Performed By: #### 5 0608 #### [facility] [address] [place] [address], [facility] RBC (Bld) [#/Vol] 4.14 10*6/uL Normal 3.80-5.00 [facility] Comment on above: Order Comment: No: D o not add to previous draw Performed By: #### 5 0608 #### [facility] [address] [place] [address], [facility] WBC (Bld) [#/Vol] 6.23 10*3/uL Normal 4.00-10.60 [facility] Comment on above: Order Comment: No: D o not add to previous draw Performed By: #### 5 0608 #### [facility] [address] [facility] [place] [address], [facility] LIPID PROFILEon 03-06-2019 Cholesterol [Mass/Vol] 151 mg/dL Normal 120-200 [facility] Comment on above: Order Comment: No: D o not add to previous draw Result Comment: CHOL ESTEROL REFERENCE RANGE: 20 YEARS AND OLDER CARDIOVASCULAR RISK Less than 200 mg/dl Low Risk 200 to 239 mg/dl Borderline Risk 240 mg/dl and greater High Risk Performed By: #### 4 6413, 41413 #### [facility] [address] [place] [address], [facility] Cholesterol in HDL [Mass/Vol] 39 mg/dL Normal 23-92 [facility] Comment on above: Order Comment: No: D o not add to previous draw Result Comment: Slig ht variation in normal range could be due to gender and/or age. HDL CHOLESTEROL REFERENCE RANGE: 20 years and older Cardiovascular Risk > or =60 mg/dL Desirable 40 TO 59 mg/dL Low Risk <40 mg/dL High Risk Performed By: #### 4 6413, 85615 #### [facility] [address] [facility] [address], [facility] Cholesterol in LDL [Mass/Vol] 90 mg/dL Normal 0-130 [facility] Comment on above: Order Comment: No: D o not add to previous draw Result Comment: LDL IS A CALCULATION LDL IS ONLY VALID IF THE TRIG IS LESS THAN 400. Performed By: #### 4 6413, 02868 #### [facility] [address] [place] [address], [facility] Cholesterol.total/Cho lesterol in HDL [Mass ratio] 3.9 {ratio} Normal 0.0-4.5 [facility] Comment on above: Order Comment: No: D o not add to previous draw Performed By: #### 4 6413, 94250 #### [facility] [address] NON-HDL CHOLESTEROL 112 mg/dL Normal [facility] Comment on above: Order Comment: No: D o not add to previous draw Performed By: #### 4 6413, 05273 #### [facility] [address] Triglyceride [Mass/Vol] 110 mg/dL Normal 40-149 [facility] Comment on above: Order Comment: No: D o not add to previous draw Result Comment: TRIG LYCERIDE REFERENCE RANGE: 20 YEARS AND OLDER CARDIOVASCULAR RISK LESS THAN 150 mg/dl LOW RISK 150 TO 199 mg/dl BORDERLINE RISK 200 mg/dl AND GREATER HIGH RISK Performed By: #### 4 6413, 52017 #### [facility] [address] VLDL CHOL 22 mg/dL Normal 0-40 [facility] Comment on above: Order Comment: No: D o not add to previous draw Performed By: #### 4 6413, 26065 #### [facility] [address] BASIC METABOLIC PANELon 02-20 Calcium [Mass/Vol] 8.8 mg/dL Normal 8.6-10.3 [facility] Comment on above: Order Comment: No: D o not add to previous draw Performed By: #### 3 5200, 18328, 16067, 48507 #### [facility] [address] [place] [address], [facility] Chloride [Moles/Vol] 107 mmol/L Normal 98-107 [facility] Comment on above: Order Comment: No: D o not add to previous draw Performed By: #### 3 5200, 78224, 79888, 39415 #### [facility] [address] [place] [address], [place] CO2 [Moles/Vol] 26 mmol/L Normal 21-31 [facility] Comment on above: Order Comment: No: D o not add to previous draw Performed By: #### 3 5200, 95809, 53934, 84255 #### [facility] [address] [place] [address], [place] Creatinine [Mass/Vol] 0.87 mg/dL Normal 0.60-1.20 [facility] Comment on above: Order Comment: No: D o not add to previous draw Performed By: #### 3 5200, 36068, 49028, 98635 #### [facility] [address] [place] [address], [place] GFR/1.73 sq M predicted among blacks MDRD (S/P/Bld) [Vol rate/Area] mL/min/{1.73_m2} Normal >60 [facility] Comment on above: Order Comment: No: D o not add to previous draw Performed By: #### 3 5200, 69654, 22929, 18404 #### [facility] [address] [place] [address], [place] GFR/1.73 sq M predicted among non-blacks MDRD (S/P/Bld) [Vol rate/Area] mL/min/{1.73_m2} Normal >60 [facility] Comment on above: Order Comment: No: D o not add to previous draw Performed By: #### 3 5200, 28188, 08351, 54565 #### [facility] [address] [place] [address], [place] Glucose [Mass/Vol] 118 mg/dL High 70-100 [facility] Comment on above: Order Comment: No: D o not add to previous draw Performed By: #### 3 5200, 61094, 77850, 72914 #### [facility] [address] [place] [address], [place] Potassium [Moles/Vol] 4.0 mmol/L Normal 3.5-5.1 [facility] Comment on above: Order Comment: No: D o not add to previous draw Performed By: #### 3 5200, 02836, 75428, 32345 #### [facility] [address] [place] [address], [facility] Sodium [Moles/Vol] 140 mmol/L Normal 136-145 [facility] Comment on above: Order Comment: No: D o not add to previous draw Performed By: #### 3 5200, 34183, 42743, 26003 #### [facility] [address] [place] [address], [facility] Urea nitrogen [Mass/Vol] 13 mg/dL Normal 7-25 [facility] Comment on above: Order Comment: No: D o not add to previous draw Performed By: #### 3 5200, 86840, 99260, 88920 #### [facility] [address] [place] [address], [facility] CBC COMPLETE BLOOD COUNTon 0 - Erythrocyte distribution width (RBC) [Ratio] 13.1 % Normal 11.5-15.0 [facility] Comment on above: Order Comment: No: D o not add to previous draw Performed By: #### 5 0608 #### [facility] [address] [place] [address], [facility] Hematocrit (Bld) [Volume fraction] 36.8 % Normal 36.0-45.0 [facility] Comment on above: Order Comment: No: D o not add to previous draw Performed By: #### 5 0608 #### [facility] [address] [place] [address], [facility] Hemoglobin (Bld) [Mass/Vol] 12.1 g/dL Normal 12.0-15.0 [facility] Comment on above: Order Comment: No: D o not add to previous draw Performed By: #### 5 0608 #### [facility] [address] [place] [address], [facility] MCH (RBC) [Entitic mass] 29.3 pg Normal 27.0-33.0 [facility] Comment on above: Order Comment: No: D o not add to previous draw Performed By: #### 5 0608 #### [facility] [address] [place] [address], [facility] MCHC (RBC) [Mass/Vol] 32.9 g/dL Normal 32.0-35.0 [facility] Comment on above: Order Comment: No: D o not add to previous draw Performed By: #### 5 0608 #### [facility] [address] [place] [id number], [facility] MCV (RBC) [Entitic vol] 89.1 fL Normal 82.0-98.0 [facility] Comment on above: Order Comment: No: D o not add to previous draw Performed By: #### 5 0608 #### [facility] [address] [place] [address], [facility] Nucleated RBC/100 WBC (Bld) [Ratio] 0 % Normal 0-0 [facility] Comment on above: Order Comment: No: D o not add to previous draw Performed By: #### 5 0608 #### [facility] [address] [place] [id number], [facility] PLAT CNT 164 10*3/uL Normal 150-400 [facility] Comment on above: Order Comment: No: D o not add to previous draw Performed By: #### 5 0608 #### [facility] [address] [place] [id number], [facility] RBC (Bld) [#/Vol] 4.13 10*6/uL Normal 3.80-5.00 [facility] Comment on above: Order Comment: No: D o not add to previous draw Performed By: #### 5 0608 #### [facility] [address] WBC (Bld) [#/Vol] 6.30 10*3/uL Normal 4.00-10.60 [facility] Comment on above: Order Comment: No: D o not add to previous draw Performed By: #### 5 0608 #### [facility] [address] History and Physicalon 03-05 History and Physical MR#: [id number] [facility] Pt. Name: Claudette Ross Admitted: 03/05/2019 Date of : 1955 Attending Physician: Nitin Gonzalez MD Room #: 3AB [id number] Discharge Date: HISTORY AND PHYSICAL CHIEF COMPLAINT: Chest pain. HISTORY OF PRESENT ILLNESS: This is a 63-year-old female with past medical history significant for hypertension, dyslipidemia, hypothyroidism. 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 She reports that she was sitting on her chair when the episode started. It was 10/10 in intensity, associated with shortness of breath for which she called the EMS who gave her nitroglycerin sublingual, which helped a bit and then she was transferred to [facility]. In [facility], an EKG was done, which was showing no significant changes. Troponin was done, which was negative. The patient was started on nitroglycerin drip. She also had a CT angiogram of the chest, which was negative for pulmonary embolism, but it was positive for a pulmonary nodule and the patient was transferred to [facility] for further evaluation. The patient reports that she still does have 6/10 substernal chest pain but with no shortness of breath at this time. She still feels the pain in her neck. She reports that she never had those episodes recently, but remotely she had similar episodes, but she did not see a satellite installer. She reports that she is compliant with her medication, but she does not recall exactly what medication she takes. PAST MEDICAL HISTORY: Include hypertension, dyslipidemia, hypothyroidism. SOCIAL HISTORY: She reports no history of tobacco use. No use of alcohol. MEDICATIONS: At home from the list from [facility] include Singulair 10 mg per oral daily, [...] Alert and oriented x3. LABORATORY DATA: From [facility] showing hemoglobin of 13, platelets 182, white [...] P Nitin Gonzalez MD Date Dict: 03/05/2019/10:19 Esmer/Nitin Gonzalez MD Date Trans: 03/05/2019 10:44 A/drew [id number] Normal [facility] MAGNESIUM BLOODon 03-05-2019 Magnesium [Mass/Vol] 2.2 mg/dL Normal 1.9-2.7 [facility] Comment on above: Order Comment: No: D o not add to previous draw Performed By: #### 3 5200, 18902, 51805, 99104 #### [facility] [address] [place] [address], [facility] TROPONIN-Ion 03-05-2019 Troponin I.cardiac [Mass/Vol] 0.01 ng/mL Normal 0.00-0.04 [facility] Comment on above: Order Comment: No: D o not add to previous draw Result Comment: REFE RENCE RANGES: 0.00 - 0.04 ng/ml NORMAL 0.05 - 0.50 ng/ml INDETERMINATE > 0.50 ng/ml CONSISTENT WITH AN M.I. Performed By: #### 3 5200 #### [facility] [address] [place] [address], [facility] Troponin I.cardiac [Mass/Vol] 0.00 ng/mL Normal 0.00-0.04 [facility] Comment on above: Order Comment: No: D o not add to previous draw Result Comment: REFE RENCE RANGES: 0.00 - 0.14 ng/ml NEGATIVE 0.15 - 0.25 ng/ml INDETERMINATE > 0.25 ng/ml INDICATIVE OF AN M.I. Performed By: #### 3 5200 #### [facility] [address] [place] [address], [facility] Troponin I.cardiac [Mass/Vol] 0.00 ng/mL Normal 0.00-0.04 [facility] Comment on above: Order Comment: No: D o not add to previous draw Result Comment: REFE RENCE RANGES: 0.00 - 0.14 ng/ml NEGATIVE 0.15 - 0.25 ng/ml INDETERMINATE > 0.25 ng/ml INDICATIVE OF AN M.I. Performed By: #### 3 5200, 85264, 29946, 50686 #### [facility] [address] [facility]. [address] TSH3 WITH REFLEXon 0 TSH 3RD GENERATION 2.38 uIU/mL Normal 0.34-5.60 [facility] Comment on above: Performed By: #### 3 5200, 02118, 89872, 77657 #### [facility] [address] [facility]. [address] Intraoperative Noteon 2017 Intraoperative Note [id number]#[address] [place] [address] Intraoperative Note [id number]#[address] [place] [address] History and Physicalon 02-22 History and Physical [id number] Provider Orderson 02-22-2017 Provider Orders [id number]#[address] [place] [address] Coding Summaryon 01-18-2017 Coding Summary CODING DATE: 017 [facility] STATUS: Home PAYOR: Medicare APC DESCRIPTION 5431 Level 1 Nerve Procedures ADMIT DX: REASON FOR VISIT DX: G56.02 Carpal tunnel syndrome, left upper limb FINAL DX: PRINCIPAL: G56.02 Carpal tunnel syndrome, left upper limb SECONDARY: E78.5 Hyperlipidemia, unspecified I10 Essential (primary) hypertension E03.9 Hypothyroidism, unspecified Z72.0 Tobacco use PYMT PROC APC STAT DESCRIPTION DOCTOR NAME DATE 50513 543 J1 Neuroplasty and/or Conrado Mccoy And [...] Rossana Swan Date Saved: 01/18/2017 07:38 am [facility] Consent Formson 01-17-2017 Consent Forms [id number]#1.00OTGTIFF [facility] Anesthesia Noteon 01-16-2017 [facility] Patient: Kolby ROSS : 61 years Sex: FEMALE : [birth year]Associated Diagnoses: NoneAuthor: Rakan Hernandezostoperative InformationAnesthetic utilized: Monitored anesthesia care.AssessmentAnesthetic outcomeNo anesthetic complications noted.PlanTransfer/ Discharge: Patient can be discharged from PACU when criteria met.Condition good.[Electronically Signed on: 01/16/2017 14:17 EST] Rakan Hernandez MD[Verified on: 01/16/2017 14:17 EST] Rakan Hernandez MD [facility] Anesthesia Note Patient: Kolby ROSS : 61 [...] 50 mg = 1 tab(s), PRN, PO, s3coIdzgele list (past medical history):All ProblemsHypothyroidism / SNOMED CT 83163668 / ConfirmedCanceled: No Chronic Problems / Cerner NKPHistoriesFamily History:No family history items have been selected or recorded.Procedure history:Carpal tunnel decompression (0267378983) on 12/12/2016 at 61 Years.Cholecystectomy (40230887).Hysterectomy and bilateral salpingo-oophorectomy sample (668576806).Fracture ([id number]).Comments: 08:10 - Vandana Onofre wristDisc ([id number]).Comments:2016 08:11 - Vandana Onofre elvira and screwsSpur of ankle bone ([id number]).Comments:1 08:12 - Vandana Onofre footRotator cuff repair ([id number]).Comments: 08:12 - Vandana Onofre RNrightSocial History Alcohol Assessment Use: Never. Tobacco Assessment Never (less than 100 in lifetime) Tobacco Use:..Social & Psychosocial SnrsewEvkiuum62/20/2017 Alcohol Use: TbxzdQxrciur50/20/2017 Smoking tobacco use: Never (less than 100 [...] FullRakan german MD[Verified on: 01/16/2017 12:52 EST] FullRakan german MD Normal [facility] Inpatient Clinical Summaryon 01-16-2017 Inpatient Clinical Summary [facility] SURGERYClinical Discharge SummaryPERSON INFORMATIONName CLAUDETTE ROSS Age 61 Years 53Sex FEMALE Language Cook Islander PCP Provider, UnlistedMarital Status [id number] Acct# Arrival 01/16/17 09:25:18Visit Reason LEFT CARPAL TUNNEL RELEASE Acuity LOS 010 23:07Address:[address] [facility] [address]Cjsmhia:PROVIDER INFORMATIONVITALS INFORMATIONVital Sign Triage LatestTemp OralTemp TemporalTemp IntravascularTemp AxillaryTemp Onrqur84 Sat 96 % 95 %Respiratory Rate 16 [...] EDUCATION INFORMATIONInstructions:Juan gonzales- Post Op Carpal Tunnel ([facility])Follow up:With: Address: When:Conrado Mccoy [address] [place] [address] [facility] (2)Comments:Call for follow up appointmentWith: Address: When:Unlisted ProviderDIAGNOSISCarpal tunnel syndrome on leftComment:PHYS DOC NOTES Normal [facility] Inpatient Patient Summaryon 01-16-2017 Inpatient Patient Summary [address] [id number] patient Discharge InstructionsName: CLAUDETTE ROSS ADOB: [birth year] Address: [address] [place] [address] Care Provider:Name: Provider, UnlistedPhone:After you are discharged if you find you have any questions, please, call [phone] ext [phone] to speak to a nurse.Discharge Diagnosis: Carpal [...] or business decisions or sign any legal documentsLima City Hospital would like to thank you for allowing us to assist you with your healthcare needs. The following includes patient education materials and information regarding your injury/illness.CLAUDETTE ROSS has been given the following list of follow-up instructions, prescriptions, and patient education materials:Follow-up InstructionsWith: Address: When:Conrado [address], [address] [place], [phone] Business (2)Comments:Call for follow up appointmentWith: Address: [...] while awake-DO NOT lift heavy objects or concrete precast moulder forcefully with your hand-Change your dressing in [...] or concerns, please call the office at [phone]-Follow up as scheduledViruses or BacteriaWhat?s got you [...] for Disease Control and Prevention October 2013 [facility]-16[facility]2017 [facility] Intraoperative Record MAGR Intra-Op Record Summary Primary Physician: Conrado Mccoy DO Finalized Date/Time: 01/16/17 15:01:02 Pt. Name: CLAUDETTE ROSS/Sex: 1955 FEMALE Med Rec #: [id number] Physician: Conrado Mccoy DO Financial #: [id number] Pt. Type: D Room/Bed: / Admit/Disch: 01/16/17 [...] Role Performed Surgeon - Primary Anesthesiologist of Typewriter Repairer Record Time In 01/16/17 13:11:00 01/16/17 13:11:00 01/16/17 13:11:00 Time Out 01/16/17 13:44:00 01/16/17 13:44:00 01/16/17 13:44:00 Procedure Carpal Tunnel Carpal Tunnel Carpal Tunnel Release(Left) Release(Left) Release(Left) Last Modified By: Craoline Montgomery RN, Stephanie RN Sauer, Stephanie RN 01/16/17 14:29:30 01/16/17 14:29:30 01/16/17 14:29:30 Entry 4 Entry 5 Case Attendee Paul Alas Linda M Regina CST Role Performed Scrub Personnel Furnace Process Plant Operator Time In 01/16/17 13:11:00 01/16/17 13:11:00 Time [...] the Initial Count Performed By Terri Alas CST Initial Count Time 01/16/17 13:10:00 Counts Verification [...] Unfinalizing Freetext Reason for Unfinalizing 01/16/17 15:00 [facility] Documentation [facility] MAGR Postoperative Recordon 01-16-2017 MAGR Postoperative Record MAGR Phase II Record Summary Primary Physician: Conrado Mccoy DO Finalized Date/Time: 01/16/17 15:27:42 Pt. Name: VANDANA CLAUDETTE Adrian/Sex: 1955 FEMALE Med Rec #: [id number] Physician: Conrado Mccoy DO Financial #: [id number] Pt. Type: D Room/Bed: / Admit/Disch: 01/16/17 [...] Signed By: Susu Stern RN 01/16/17 15:27 [facility] MAGR Preoperative Recordon 1 03-18-2016 MAGR Preoperative Record MAGR Pre-Op Record Summary Primary Physician: Conrado Mccoy DO Finalized Date/Time: 01/16/17 13:05:28 Pt. Name: CLAUDETTE ROSS/Sex: 1955 FEMALE Med Rec #: [id number] Physician: Conrado Mccoy DO Financial #: [id number] Pt. Type: D Room/Bed: / Admit/Disch: 01/16/17 [...] Signed By: Susu Stern RN 01/16/17 13:05 Normal [facility] Operative Report - Surgeon/P corey 01-16-2017 [...] on: 01/16/2017 13:32 EST] Conrado Mccoy DO [facility] MAGR Intraoperative Recordon 01-10-2017 MAG[facility] Intraoperative Record MAGR Intra-Op Record Summary Primary Physician: Conrado Mccoy DO Finalized Date/Time: 01/10/17 10:13:17 Pt. Name: CLAUDETTE ROSS/Sex: 1955 FEMALE Med Rec #: [id number] Physician: Conrado Mccoy DO Financial #: [id number] Pt. Type: D Room/Bed: / Admit/Disch: 12/12/16 [...] Role Performed Surgeon - Primary Anesthesiologist of Typewriter Repairer Record Time In 12/12/16 16:52:00 12/12/16 16:52:00 12/12/16 16:52:00 Time Out 12/12/16 17:25:00 12/12/16 17:25:00 12/12/16 17:25:00 Procedure Carpal Tunnel Carpal Tunnel Carpal Tunnel Release(Right) Release(Right) Release(Right) Last Modified By: Bina Limon RN, Barbara RN Long, Barbara RN 12/12/16 17:25:48 12/12/16 17:25:48 12/12/16 17:25:48 Entry 4 Entry 5 Case Attendee Chelsie Marcum CST, Leigh-Ann CST Role Performed Scrub Personnel Furnace Process Plant Operator Time In 12/12/16 16:52:00 12/12/16 16:52:00 Time [...] the Initial Count Performed By Chelsie Johnson FOOD SERVICE REPRESENTATIVE Initial Count Time 12/12/16 17:00:00 Counts Verification Final Counts Items Included in Sponges, Sharps Final Count Method Manual Final Count Final Count Status Correct Final Counts Bina Limon RN, Bear, Performed By Chelsie Johnson FOOD SERVICE REPRESENTATIVE Final Count Time 12/12/16 17:14:00 Surgeon notified [...] Yes Yes Last Modified By: Bina Limon RN Bina Limon RN 12/12/16 17:16:20 01/10/17 10:13:12 Post-Care Text: [...] Modify Pick List 01/10/17 10:12 MHBLONG Modify [facility] List [facility] MAGR Preoperative Recordon 1 02-22-2016 MAGR Preoperative Record MAGR Pre-Op Record Summary Primary Physician: Conrado Mccoy DO Finalized Date/Time: 12/22/16 13:33:53 Pt. Name: CLAUDETTE ROSS/Sex: 1955 FEMALE Med Rec #: [id number] Physician: Conrado Mccoy DO Financial #: [id number] Pt. Type: D Room/Bed: / Admit/Disch: 12/12/16 [...] consent correct. General Comments: arrives [facility], denies recent cp, sob, new illnesses, pacemaker, defibrillator or sleep apnea Finalized By: Susu Stern RN Document Signatures Signed By: Susu Stern RN 12/22/16 13:33 [facility] Coding Summaryon 12-15-2016 Coding Summary CODING DATE: 017 [facility] STATUS: Home PAYOR: Medicare APC DESCRIPTION [...] Linda Jenkins Date Saved: 12/15/2016 04:40 pm [facility] Coding Summary CODING DATE: 017 [facility] STATUS: Home PAYOR: Medicare APC DESCRIPTION 5431 Level 1 Nerve Procedures ADMIT DX: REASON FOR VISIT DX: G56.01 Carpal tunnel syndrome, right upper limb FINAL DX: PRINCIPAL: G56.01 Carpal tunnel syndrome, right upper limb SECONDARY: PYMT PROC APC STAT DESCRIPTION DOCTOR NAME DATE 01310 5431 J1 Neuroplasty and/or Conrado Mccoy And [...] Rachel Zafar Date Saved: 12/15/2016 01:30 pm [facility] Consent Formson 12-13-2016 Consent Forms [id number]#1.00[facility] History and Physicalon 12-13 History and Physical [id number]#1.00[facility] Provider Orderson 12-13-2016 Provider Orders [id number]#1.00[facility] Anesthesia Noteon 12-12-2016 Anesthesia Note Patient: Kolby ROSS : 61 years Sex: FEMALE : [birth year]Associated Diagnoses: NoneAuthor: Theodore Guevara MDPostoperative InformationPost Operative Note: Operative Day.Anesthetic utilized: Monitored anesthesia care.Health StatusAllergies:Allergic Reactions (All)Severity Not DocumentedCodeine- Rash.Percocet 5/325- Rash.Vicodin- Rash.Problem list (past medical history):All ProblemsHypothyroidism / SNOMED CT 05818548 / ConfirmedCanceled: No Chronic Problems / Cerner [...] on: 12/12/2016 17:31 EDT] Theodore Guevara MD [facility] Anesthesia Note Patient: Kolby ROSS : 61 [...] (past medical history):All ProblemsHypothyroidism / SNOMED CT 85622791 / ConfirmedCanceled: No Chronic Problems / Cerner NKPAsthma, mildHistoriesFamily History:No family history items have been selected or recorded.Procedure history:Cholecystectomy (47381162).Hysterectomy and bilateral salpingo-oophorectomy sample (030125734).Fracture (046842292).Comments: 017 08:10 - Vandana Onofre RNle [facility] ([id number]).Comments:2016 08:11 - Vandana Onofre RNneck elvira and screwsSpur of ankle bone ([id number]).Comments:1 08:12 - Vandana Onofre RNleft footRotator cuff repair ([id number]).Comments: 017 08:12 - Vandana Onofre RNrightSocial History Alcohol Assessment Use: Never. Tobacco Assessment Never (less than 100 in lifetime) Tobacco Use:..Social & Psychosocial AgpsmxBobeqas57/20/2017 Alcohol Use: NrkgkXvtwhvy59/20/2017 Smoking tobacco use: Never (less than 100 [...] 12/12/2016 14:32 EDT] Theodore Guevara MD Normal [facility] Inpatient Clinical Summaryon 12-12-2016 Inpatient Clinical Summary [facility] SURGERYClinical Discharge SummaryPERSON INFORMATIONName CLAUDETTE ROSS Age 61 Years 54Sex FEMALE Language Cook Islander PCP Provider, UnlistedMarital Status Single Med Service Ambulatory SurgeryN [id number] Acct# Arrival 12/12/16 12:05:33Visit Reason SURGERY - RELEASE RIGHT CARPAL TUNNEL Acuity LOS 005 08:24Address:[address] [facility] [address]Itksyyd:PROVIDER INFORMATIONVITALS INFORMATIONVital Sign Triage LatestTemp OralTemp TemporalTemp IntravascularTemp AxillaryTemp Cdfbgx68 Sat 96 % 96 %Respiratory Rate 16 [...] EDUCATION INFORMATIONInstructions:Juan gonzales- Post Op Carpal Tunnel ([facility])Follow up:With: Address: When:Conrado GerardNad[address], [place], [phone] Business (2)With: Address: When:Unlisted ProviderDIAGNOSISRight carpal tunnel syndromeComment:PHYS DOC NOTES Normal [facility] Inpatient Patient Summaryon 12-12-2016 Inpatient Patient Summary [address] [phone] Discharge InstructionsName: CLAUDETTE ROSS ADOB: [birth year] Address: [address] [place] [address] Care Provider:Name: Provider, UnlistedPhone:Discharge Diagnosis: Right carpal [...] or business decisions or sign any legal documentsLima City Hospital would like to thank you for allowing us to assist you with your healthcare needs. The following includes patient education materials and information regarding your injury/illness.CLAUDETTE ROSS has been given the following list of follow-up instructions, prescriptions, and patient education materials:Follow-up InstructionsWith: Address: When:Conrado [phone] Business (2)With: Address: When:Unlisted ProviderMedicationsDuring the course [...] while awake-DO NOT lift heavy objects or concrete precast moulder forcefully with your hand-Change your dressing in [...] or concerns, please call the office at [phone]-Follow up as scheduled Viruses or BacteriaWhat?s got [...] Antibiotics Bet[place]. Department of Health and Human ServicesTri[facility] Hospitalers for Disease Control and Prevention October 2013 [facility] MAGR Postoperative Recordon 12-12-2016 MAGR Postoperative Record MAGR Phase II Record Summary Primary Physician: Conrado Mccoy DO Finalized Date/Time: 12/12/16 18:18:35 Pt. Name: CLAUDETTE ROSS Esmer Barnard/Sex: 1955 FEMALE Med Rec #: [id number] Physician: Conrado Mccoy DO Financial #: [id number] Pt. Type: D Room/Bed: / Admit/Disch: 12/12/16 [...] By: Bina Limon RN 12/12/16 18:18 Normal [facility] Operative Report - Surgeon/P corey 12-12-2016 [...] 12/12/2016 17:29 EDT] Conrado Mccoy DO Normal [facility] .Auto Diff 1on 12-09-2016 Auto Baso % 0.3 % Normal 0.2-2.0 [facility] Comment on above: Performed By: #### 7 916185, [id number], [id number] ####[facility] (DEFAULT)[address] [place] [address] 45528 Auto Montgomery % 10 % Normal 1-12 [facility] Comment on above: Performed By: #### 7 992050, [id number], [id number] ####[facility] (DEFAULT)[address] [place] [address] 94159 Auto Neut % 63 % Normal 44-88 [facility] Comment on above: Performed By: #### 7 624804, [id number], [id number] ####[facility] (DEFAULT)[address] [place] [address] 12735 Baso Abs# 0.0 x10 Normal 0.0-0.2 [facility] Comment on above: Performed By: #### 7 448775, 14703898, [id number] ####[facility] (DEFAULT)[address] [place] [address] 12275 Eos Abs# 0.1 x10 Normal 0.0-0.4 [facility] Comment on above: Performed By: #### 7 111099, 81108327, [id number] ####[facility] (DEFAULT)[address] [place] [address]609 Eosinophils/100 leukocytes 1.5 % Normal 0.9-4.0 [facility] Comment on above: Performed By: #### 7 951633, 24065877, [id number] ####[facility] (DEFAULT)[address] [place] [address] Lymphocytes 1.5 x10 Normal 1.3-2.9 [facility] Comment on above: Performed By: #### 7 341092, 38450368, [id number] ####[facility] (DEFAULT)[address] [place] [address] Lymphocytes/100 leukocytes 25 % Normal 14-48 [facility] Comment on above: Performed By: #### 7 204073, 65041662, [id number] ####[facility] (DEFAULT)[address] [place] [address] Montgomery Abs# 0.6 x10 Normal 0.0-0.8 [facility] Comment on above: Performed By: #### 7 982705, [id number], [id number] ####[facility] (DEFAULT)[address] [place] [address] Neut Abs# 3.8 x10 Normal 1.5-9.2 [facility] Comment on above: Performed By: #### 7 486298, 51990667, [id number] ####[facility] (DEFAULT)[address] [place] [address] Standardon 12-09-2016 eGFR (non-black) mL/min/{1.73_m2} Invalid Interpretation Code [facility] Comment on above: Performed By: #### 7 435519, [id number], [id number] ####[facility] (DEFAULT)[address] [place] [address] eGFR (non-black) mL/min/{1.73_m2} Invalid Interpretation Code [facility] Comment on above: Result Comment: Enterprise Systems Administrator marky Kidney disease could be indicated at eGFRs of less than 60 ml/min/1.73m2. Kidney Failure is indicated at less than 15 ml/min/1.73m2 Performed By: #### 7 775447, 67046245, [id number] ####[facility] (DEFAULT)[address] [place] [address] Anion gap 11.0 mmol/L Normal 5.0-19.0 [facility] Comment on above: Performed By: #### 7 713010, 33957546, [id number] ####[facility] (DEFAULT)[address] [place] [address] 61245 BUN/Creatinine Ratio 12.0 mg/mg Normal 4.6-16.2 [facility] Comment on above: Performed By: #### 7 095752, 24029503, [id number] ####[facility] (DEFAULT)[address] [place] [address] 43319 Calcium 9.1 mg/dL Normal 8.9-10.3 [facility] Comment on above: Performed By: #### 7 949451, 66261135, [id number] ####[facility] (DEFAULT)[address] [place] [address] 30757 Chloride 104 mmol/L Normal 101-111 [facility] Comment on above: Performed By: #### 7 582234, 07544977, [id number] ####[facility] (DEFAULT)[address] [place] [address] 09610 CO2 26 mmol/L Normal 21-32 [facility] Comment on above: Performed By: #### 7 036489, [id number], [id number] ####[facility] (DEFAULT)[address] [place] [address] 05315 Creatinine 0.86 mg/dL Normal 0.60-1.30 [facility] Comment on above: Performed By: #### 7 182150, 51479597, [id number] ####[facility] (DEFAULT)[address] [place] [address] 44594 Glucose mass conc 112.0 mg/dL Normal 74.0-118.0 [facility] Comment on above: Performed By: #### 7 752237, 46675995, [id number] ####[facility] (DEFAULT)[address] [place] [address] 29847 Osmolality 274 mOsm/L Invalid Interpretation Code [facility] Comment on above: Performed By: #### 7 905103, [id number], [id number] ####[facility] (DEFAULT)[address] [place] [address] 73895 Potassium molar conc 3.8 mmol/L Normal 3.6-5.1 [facility] Comment on above: Performed By: #### 7 572775, 92612966, [id number] ####[facility] (DEFAULT)[address] [place] [address] Sodium 137.0 mmol/L Normal 136.0-144. 0 [facility] Comment on above: Performed By: #### 7 197812, 60720335, [id number] ####[facility] (DEFAULT)[address] [place] [address] Urea nitrogen 10 mg/dL Normal 8-26 [facility] Comment on above: Performed By: #### 7 139211, 22121152, [id number] ####[facility] [facility] (DEFAULT)[address] [place] [address] CBC w/ Auto Diffon 7 Erythrocyte distribution width Auto Ratio (RBC) 13.2 % Normal 11.5-15.0 [facility] Comment on above: Performed By: #### 7 [id number] ####[facility] (DEFAULT)[address] [place] [address] Erythrocytes (RBC) 4.40 x10 Normal 3.70-5.30 [facility] Comment on above: Performed By: #### 7 [id number], [id number] ####[facility] (DEFAULT)[address] [place] [address] Hematocrit (HCT) 39.4 % Normal 33.7-40.4 [facility] Comment on above: Performed By: #### 7 [id number], [id number] ####[facility] (DEFAULT)[address] [place] [address] Hemoglobin mass conc (Bld) 13.8 g/dL Normal 11.3-15.9 [facility] Comment on above: Performed By: #### 7 [id number], [id number], [id number] ####[facility] (DEFAULT)[address] [place] [address] 20831 Man Diff? Auto Normal [facility] Comment on above: Performed By: #### 7 [id number], [id number], [id number] ####[facility] (DEFAULT)[address] [place] [address] 62928 MCH 31 pg Normal 24-34 [facility] Comment on above: Performed By: #### 7 [id number], [id number], [id number] ####[facility] (DEFAULT)[address] [place] [address] 48942 MCHC mass conc (RBC) 35 g/dL Normal 26-37 [facility] Comment on above: Performed By: #### 7 [id number], [id number], [id number] ####[facility] (DEFAULT)[address] [place] [address] 02050 MCV 90 fL Normal 81-100 [facility] Comment on above: Performed By: #### 7 [id number], [id number], [id number] ####[facility] (DEFAULT)[address] [place] [address] 03637 Platelet mean volume (PMV) 8.6 fL Normal 6.3-10.2 [facility] Comment on above: Performed By: #### 7 [id number], [id number], [id number] ####[facility] (DEFAULT)[address] [place] [address] 09598 Platelets 194 x10 Normal 138-427 [facility] Comment on above: Performed By: #### 7 [id number], [id number], [id number] ####[facility] (DEFAULT)[address] [place] [address] 03723 WBC (Leukocytes) 6.0 x10 Invalid Interpretation Code [facility] Comment on above: Performed By: #### 7 [id number], [id number] ####[facility] (DEFAULT)[address] [place] [address]017 Vital Signs Date Time Vital Sign Value Performing Clinician Facility 11-05-2024 13:07-0400 Body height 162.56 cm Jessica Sosa NP-C Work Phone: [facility] 11-05-2024 13:07-0400 Body mass index (BMI) [Ratio] 33 kg/m2 Jessica Aichholz BIOLOGY SPECIALIST-C Work Phone: [facility] 11-05-2024 13:07-0400 Body temperature 98.5 [degF] Jessica Aichholz BIOLOGY SPECIALIST-C Work Phone: [facility] 11-05-2024 13:07-0400 Body weight 87.31 kg Jessica Aichholz BIOLOGY SPECIALIST-C Work Phone: [facility] 11-05-2024 13:07-0400 Diastolic blood pressure 92 mm[Hg] Jessica Aichholz BIOLOGY SPECIALIST-C Work Phone: [facility] 11-05-2024 13:07-0400 Heart rate 78 /min Jessica Aichholz BIOLOGY SPECIALIST-C Work Phone: [facility] 11-05-2024 13:07-0400 Respiratory rate 20 /min Jessica Aichholz BIOLOGY SPECIALIST-C Work Phone: [facility] 11-05-2024 13:07-0400 SaO2% (BldA) [Mass fraction] 96 % Jessica Aichholz BIOLOGY SPECIALIST-C Work Phone: [facility] 11-05-2024 13:07-0400 Systolic blood pressure 154 mm[Hg] Jessica Aichholz BIOLOGY SPECIALIST-C Work Phone: [facility] 08-05-2024 13:17-0400 Body mass index (BMI) [Ratio] 33.03 kg/m2 Jessica Aichholz BIOLOGY SPECIALIST Work Phone: [facility] 08-05-2024 13:17-0400 Body temperature 98.49 [degF] Jessica Aichholz BIOLOGY SPECIALIST Work Phone: [facility] 08-05-2024 13:17-0400 Body weight 87.27 kg Jessica Aichholz BIOLOGY SPECIALIST Work Phone: [facility] 08-05-2024 13:17-0400 Diastolic blood pressure 80 mm[Hg] Jessica Aichholz BIOLOGY SPECIALIST Work Phone: [facility] 08-05-2024 13:17-0400 Heart rate 81 /min Jessica Aichholz BIOLOGY SPECIALIST Work Phone: [facility] 08-05-2024 13:17-0400 Respiratory rate 18 /min Jessica Aichholz BIOLOGY SPECIALIST Work Phone: [facility] 08-05-2024 13:17-0400 SaO2% (BldA) [Mass fraction] 96 % Jessica Aichholz BIOLOGY SPECIALIST Work Phone: [facility] 08-05-2024 13:17-0400 Systolic blood pressure 130 mm[Hg] Jessica Aichholz BIOLOGY SPECIALIST Work Phone: [facility] 06-03-2024 13:22-0400 Diastolic blood pressure 72 mm[Hg] Jessica Aichholz BIOLOGY SPECIALIST Work Phone: [facility] 06-03-2024 13:22-0400 Heart rate 88 /min Jessica Aichholz BIOLOGY SPECIALIST Work Phone: [facility] 06-03-2024 13:22-0400 Systolic blood pressure 128 mm[Hg] Jessica Aichholz BIOLOGY SPECIALIST Work Phone: [facility] 06-03-2024 13:05-0400 Body mass index (BMI) [Ratio] 33.33 kg/m2 Jessica Aichholz BIOLOGY SPECIALIST Work Phone: [facility] 06-03-2024 13:05-0400 Body temperature 98.1 [degF] Jessica Aichholz BIOLOGY SPECIALIST Work Phone: [facility] 06-03-2024 13:05-0400 Body weight 88.09 kg Jessica Aichholz BIOLOGY SPECIALIST Work Phone: [facility] 06-03-2024 13:05-0400 Respiratory rate 18 /min Jessica Aichholz BIOLOGY SPECIALIST Work Phone: [facility] 06-03-2024 13:05-0400 SaO2% (BldA) [Mass fraction] 96 % Jessica Levhholz BIOLOGY SPECIALIST Work Phone: [facility] 04-22-2024 13:12-0500 Body mass index (BMI) [Ratio] 33.13 kg/m2 Jessica Aichholz BIOLOGY SPECIALIST Work Phone: [facility] 04-22-2024 13:12-0500 Body temperature 98.1 [degF] Jessica Aichholz BIOLOGY SPECIALIST Work Phone: [facility] 04-22-2024 13:12-0500 Body weight 87.54 kg Jessica Aichholz BIOLOGY SPECIALIST Work Phone: [facility] 04-22-2024 13:12-0500 Diastolic blood pressure 80 mm[Hg] Jessica Aichholz BIOLOGY SPECIALIST Work Phone: [facility] 04-22-2024 13:12-0500 Heart rate 98 /min Jessica Aichholz BIOLOGY SPECIALIST Work Phone: [facility] 04-22-2024 13:12-0500 Respiratory rate 20 /min Jessica Aichholz BIOLOGY SPECIALIST Work Phone: [facility] 04-22-2024 13:12-0500 SaO2% (BldA) [Mass fraction] 97 % Jessica Aichholz BIOLOGY SPECIALIST Work Phone: [facility] 04-22-2024 13:12-0500 Systolic blood pressure 132 mm[Hg] Jessica Aichholz BIOLOGY SPECIALIST Work Phone: [facility] 03-25-2024 14:56-0500 Diastolic blood pressure 84 mm[Hg] Jessica Aichholz BIOLOGY SPECIALIST Work Phone: [facility] 03-25-2024 14:56-0500 Systolic blood pressure 152 mm[Hg] Jessica Aichholz BIOLOGY SPECIALIST Work Phone: [facility] 03-25-2024 14:26-0500 Body height 162.6 cm Jessica Aichholz BIOLOGY SPECIALIST Work Phone: [facility] 03-25-2024 14:26-0500 Body mass index (BMI) [Ratio] 32.68 kg/m2 Jessica Sosa BIOLOGY SPECIALIST Work Phone: [facility] 03-25-2024 14:26-0500 Body temperature 98.49 [degF] Jessica Sosa BIOLOGY SPECIALIST Work Phone: [facility] 03-25-2024 14:26-0500 Body weight 86.36 kg Jessicaesmer Sosa BIOLOGY SPECIALIST Work Phone: [facility] 03-25-2024 14:26-0500 Heart rate 86 /min Jessica Sosa BIOLOGY SPECIALIST Work Phone: [facility] 03-25-2024 14:26-0500 Respiratory rate 18 /min Jessica Sosa BIOLOGY SPECIALIST Work Phone: [facility] 03-25-2024 14:26-0500 SaO2% (BldA) [Mass fraction] 96 % Jessica Sosa BIOLOGY SPECIALIST Work Phone: [facility] 12-20-2023 16:36-0400 Body height 170.2 cm Jessica Sosa BIOLOGY SPECIALIST Work Phone: [facility] 12-20-2023 16:36-0400 Body mass index (BMI) [Ratio] 29.6 kg/m2 Jessica Sosa BIOLOGY SPECIALIST Work Phone: [facility] 12-20-2023 16:36-0400 Body temperature 97.81 [degF] Jessica Sosa BIOLOGY SPECIALIST Work Phone: [facility] 12-20-2023 16:36-0400 Body weight 85.73 kg Jessica Sosa BIOLOGY SPECIALIST Work Phone: [facility] 12-20-2023 16:36-0400 Diastolic blood pressure 72 mm[Hg] Jessica Sosa BIOLOGY SPECIALIST Work Phone: [facility] 12-20-2023 16:36-0400 Heart rate 80 /min Jessicaesmer Monroyz BIOLOGY SPECIALIST Work Phone: [facility] 12-20-2023 16:36-0400 Respiratory rate 18 /min Jessica Kelsiholz BIOLOGY SPECIALIST Work Phone: [facility] 12-20-2023 16:36-0400 SaO2% (BldA) [Mass fraction] 96 % Jessicaesmer Monroyz BIOLOGY SPECIALIST Work Phone: [facility] 12-20-2023 16:36-0400 Systolic blood pressure 124 mm[Hg] Jessica Kelsiholz BIOLOGY SPECIALIST Work Phone: [facility] 10-18-2023 13:05-0400 Body height 170.2 cm Jessica Kelsiholz BIOLOGY SPECIALIST Work Phone: [facility] 10-18-2023 13:05-0400 Body mass index (BMI) [Ratio] 29.82 kg/m2 Jessica Kelsiholz BIOLOGY SPECIALIST Work Phone: [facility] 10-18-2023 13:05-0400 Body temperature 97.3 [degF] Jessica Kelsiholz BIOLOGY SPECIALIST Work Phone: [facility] 10-18-2023 13:05-0400 Body weight 86.36 kg Jessicaesmer Monroyz BIOLOGY SPECIALIST Work Phone: [facility] 10-18-2023 13:05-0400 Diastolic blood pressure 76 mm[Hg] Jessica Kelsiholz BIOLOGY SPECIALIST Work Phone: [facility] 10-18-2023 13:05-0400 Heart rate 82 /min Jessica Kelsiholz BIOLOGY SPECIALIST Work Phone: [facility] 10-18-2023 13:05-0400 Respiratory rate 18 /min Jessica Kelsiholz BIOLOGY SPECIALIST Work Phone: [facility] 10-18-2023 13:05-0400 SaO2% (BldA) [Mass fraction] 96 % Jessica Kelsiholz BIOLOGY SPECIALIST Work Phone: [facility] 10-18-2023 13:05-0400 Systolic blood pressure 112 mm[Hg] Jessica Sosa BIOLOGY SPECIALIST Work Phone: [facility] 11-03-2021 15:36-0400 Blood Pressure Location LINDA MASON [facility] 11-03-2021 15:36-0400 Diastolic blood pressure 87 mm[Hg] LINDA MASON [facility] 11-03-2021 15:36-0400 Heart rate 101 /min LINDA MASON [facility] 11-03-2021 15:36-0400 Systolic blood pressure 136 mm[Hg] LINDA MASON [facility] Encounters Encounter Date Encounter Type Care Provider Facility Start: 11-05-2024 End: 11-05-2024 ambulatory Jessica Sosa BIOLOGY SPECIALIST-C Work Phone: [facility] Work Phone: Start: 11-05-2024 End: 11-05-2024 Patient encounter procedure Jessica Sosa BIOLOGY SPECIALIST-C -[facility] Work Phone: Start: 11-03-2024 Patient encounter procedure Jessica Sosa BIOLOGY SPECIALIST-C Work Phone: [facility] Start: 08-05-2024 End: 08-05-2024 Bamboo flowsheet Jessica Sosa BIOLOGY SPECIALIST Work Phone: [facility] Start: 08-05-2024 End: 08-05-2024 Bamboo flowsheet Jessica Sosa BIOLOGY SPECIALIST Work Phone: [facility] Start: 08-05-2024 End: 08-05-2024 Office outpatient visit 25 minutes Jessica Sosa BIOLOGY SPECIALIST Work Phone: [facility] Comment on above: Primary hypertension (Primary Dx); Overweight (BMI 25.0-29.9); Anxiety and depression ; Mixed hyperlipidemia ; Hypothyroidism, unspecified type ; Primary insomnia; Candidiasis; Osteopenia, unspecified location; Mild episode of recurrent major depressive disorder ; Allergic rhinitis, unspecified seasonality, unspecified trigger Start: 08-05-2024 End: 08-05-2024 ambulatory JESSICA AICHHOLZ Not Available Start: 07-25-2024 End: 07-25-2024 Refill Jessica Aichholz BIOLOGY SPECIALIST Work Phone: [facility] Comment on above: Skin candidiasis Start: 06-03-2024 End: 06-03-2024 Bamboo flowsheet Jessica Aichholz BIOLOGY SPECIALIST Work Phone: [facility] Start: 06-03-2024 End: 06-03-2024 Bamboo flowsheet Jessica Aichholz BIOLOGY SPECIALIST Work Phone: [facility] Start: 06-03-2024 End: 06-03-2024 ambulatory JESSICA AICHHOLZ Not Available Start: 06-03-2024 End: 06-03-2024 Office outpatient visit 25 minutes Jessica Aichholz BIOLOGY SPECIALIST Work Phone: [facility] Comment on above: Mild episode of recu rrent major depressive disorder (HCC) (CMS/HCC) (Primary Dx); Obstructive sleep apnea; Primary hypertension (CMS/HCC); Hypothyroidism, unspecified type (CMS/HCC); Primary insomnia; Osteopenia, unspecified location Start: 04-22-2024 End: 04-22-2024 Bamboo flowsheet Jessica Aichholz BIOLOGY SPECIALIST Work Phone: [facility] Start: 04-22-2024 End: 04-22-2024 Bamboo flowsheet Jessica Aichholz BIOLOGY SPECIALIST Work Phone: [facility] Start: 04-22-2024 End: 04-22-2024 Office outpatient visit 25 minutes Jessica Aichholz BIOLOGY SPECIALIST Work Phone: [facility] Comment on above: Primary hypertension (CMS/HCC) (Primary Dx); Overweight (BMI 25.0-29.9); Anxiety and depression (CMS/HCC); Obstructive sleep apnea; Primary insomnia Start: 04-22-2024 End: 04-22-2024 ambulatory JESSICA AICHHOLZ Not Available Start: 04-15-2024 End: 04-15-2024 Clinisync Result Encounter Jessica Ian BIOLOGY SPECIALIST Work Phone: [facility] External Department Unsolicited Start: 04-15-2024 End: 04-15-2024 Clinisync Result Encounter Jessica Kelsiholz BIOLOGY SPECIALIST Work Phone: [facility] External Department Unsolicited Start: 04-04-2024 End: 04-04-2024 Clinisync Result Encounter Jessica Elianaz BIOLOGY SPECIALIST Work Phone: [facility] External Department Unsolicited Start: 04-04-2024 End: 04-04-2024 Clinisync Result Encounter Jessica Elianaz BIOLOGY SPECIALIST Work Phone: [facility] External Department Unsolicited Start: 03-25-2024 End: 03-25-2024 Office outpatient visit 25 minutes Jessica Sosa BIOLOGY SPECIALIST Work Phone: [facility] Comment on above: Primary hypertension (CMS/HCC) (Primary Dx); Obstructive sleep apnea; Hypothyroidism, unspecified type (CMS/HCC); Overweight (BMI 25.0-29.9); Osteopenia, unspecified location; Anxiety and depression (CMS/HCC); Asymptomatic microscopic hematuria; Vitamin D deficiency; Mixed hyperlipidemia (CMS/HCC); Needs flu shot; Allergic rhinitis, unspecified seasonality, unspecified trigger Start: 03-25-2024 End: 03-25-2024 ambulatory JESSICA AICHHOLZ Not Available Start: 03-25-2024 End: 03-25-2024 Bamboo flowsheet Jessica Kelsiholz BIOLOGY SPECIALIST Work Phone: [facility] Start: 03-25-2024 End: 03-25-2024 Bamboo flowsheet Jessica Levhholz BIOLOGY SPECIALIST Work Phone: [facility] Start: 12-20-2023 End: 12-20-2023 ambulatory JESSICA IAN Not Available Start: 12-20-2023 End: 12-20-2023 Bamboo flowsheet Jessicaesmer Sosa BIOLOGY SPECIALIST Work Phone: [facility] Start: 12-20-2023 End: 12-20-2023 Bamboo flowsheet Jessica Ian BIOLOGY SPECIALIST Work Phone: [facility] Start: 12-20-2023 End: 12-20-2023 Patient encounter procedure Jessica Ian BIOLOGY SPECIALIST Work Phone: [facility] Comment on above: Encounter for subseq uent annual wellness visit (AWV) in Medicare patient (Primary Dx); Obesity (BMI 30-39.9); Hypothyroidism, unspecified type (CMS/HCC); Mixed hyperlipidemia (CMS/HCC); Anxiety and depression (CMS/HCC); Overweight (BMI 25.0-29.9); Obstructive sleep apnea; Osteopenia, unspecified location; Post-menopausal Start: 10-18-2023 End: 10-18-2023 Bamboo flowsheet Jessica Sosa BIOLOGY SPECIALIST Work Phone: [facility] Start: 10-18-2023 End: 10-18-2023 Bamboo flowsheet Jessica Levaemaubrie BIOLOGY SPECIALIST Work Phone: [facility] Start: 10-18-2023 End: 10-18-2023 Office outpatient visit 15 minutes Jessica Sosa BIOLOGY SPECIALIST [facility] Comment on above: Encounter for screen ing mammogram for malignant neoplasm of breast; Osteopenia, unspecified location; Anxiety and depression (CMS/HCC); Allergic rhinitis, unspecified seasonality, unspecified trigger; Vitamin D deficiency; Hypothyroidism, unspecified type (CMS/HCC); Urinary incontinence in female; Mixed hyperlipidemia (CMS/HCC); Obesity (BMI 30-39.9); Obstructive sleep apnea Start: 10-18-2023 End: 10-18-2023 ambulatory JESSIAC AICHHOLZ Not Available Start: 11-09-2022 End: 11-10-2022 ambulatory LINDA MASON Facility:[facility] Start: 11-09-2022 End: 11-09-2022 Patient encounter procedure LINDA MASON [facility] Start: 06-29-2022 ambulatory RODNEY SOSA Facil ity:[facility] Start: 05-25-2022 End: 05-26-2022 ambulatory BOTTOM PRESSER JESSICA DOLANGWENZ Facility:[facility] Start: 05-09-2022 End: 05-10-2022 ambulatory BOTTOM PRESSER JESSICA LEVAmeGWENZ Facility:[facility] Start: 05-02-2022 End: 05-02-2022 ambulatory BOTTOM PRESSER JESSICA DOLANGWENZ Facility:[facility] Start: 03-11-2022 End: 03-11-2022 ambulatory Jessica Ashley Levamegwenmurray Work Phone: [facility] Work Phone: Start: 03-11-2022 End: 03-11-2022 Patient encounter procedure Jessica Dolangwenmurray Work Phone: [facility] Work Phone: Start: 12-08-2021 End: 12-09-2021 ambulatory RODNEY DOLANGWENMurray Facility:[facility] Start: 11-03-2021 End: 11-03-2021 Patient encounter procedure LINDA MASON [facility] Start: 08-09-2021 End: 08-10-2021 ambulatory BOTTOM PRESSER JESSICA LEVAmeGWENZ Facility:[facility] Start: 06-24-2021 End: 06-25-2021 ambulatory BOTTOM PRESSER JESSICA LEVAmeHOLZ Facility:[facility] Start: 03-18-2021 End: 03-19-2021 ambulatory MD NIDHI MICHAELS Facility:[facility] Start: 01-26-2021 End: 01-26-2021 Emergency department patient visit MD NIDHI MICHAELS Facility:[facility] Start: 03-05-2019 End: 03-06-2019 Patient encounter procedure RALPH ZAVALA Facility:[facility] Start: 01-16-2017 End: 01-24-2017 Ambulatory [facility] Facility:[facility] Start: 12-12-2016 End: 12-20-2016 Ambulatory [facility] Facility:[facility] Start: 12-10-2016 End: 12-13-2016 Ambulatory [facility] Facility:[facility] Procedures Date Procedure Procedure Detail Performing Clinician Start: 04-15-2024 TBH UA (CLEAN/CATCH) MICROSCOPIC IF INDICATE Jessica Sosa BIOLOGY SPECIALIST Work Phone: Start: 04-04-2024 XR DEXA AXIAL SKELETON Jessica Sosa BIOLOGY SPECIALIST Work Phone: Start: 10-30-2023 Mammography Jessica arredondo BIOLOGY SPECIALIST Work Phone: Start: 09-27-2022 Mammography Jessica arredondo BIOLOGY SPECIALIST Work Phone: Start: 03-11-2022 Plain chest X-ray Jessica Sosa Work Phone: Start: 06-27-2018 Repair of stress inc ontinence by suprapubic sling LINDA MASON Start: 10-09-2017 Cystourethroscopy an d dilation of bladder LINDA MASON Start: 02-20-2017 Colonoscopy LINDA GONZALEZ Start: 12-22-2016 Colonoscopy Jessica Reji arredondo BIOLOGY SPECIALIST Work Phone: Start: 06-11-2014 left synovectomy to [...] MASON Cholecystectomy LINDA KAY Comment on above: 2012 elbow LINDA MASON elbow surgery 3 LINDA KAY Comment on above: left Hysterectomy LINDA MASON neck surgery 4 LINDA RAMIREZ Y Comment on above: 2009 Tarsal tunnel release AMPARO MASON Comment on above: left wrist surgery 6 LINDA KAY Comment on above: left Plan of Treatment Date Care Activity Detail Author Start: 12-22-2026 Screening for malign ant neoplasm of colon [facility] Start: 12-19-2024 Medicare Annual Well ness (AWV) Medicare Annual Wellness (AWV) [facility] Start: 11-05-2024 End: 11-05-2024 Patient encounter procedure 11/05/2024 1:00 PM EDT [facility] [address] [place] [address] Jessica Sosa NP [address] [place] [id number] [facility] Start: 10-29-2024 Screening for malign ant neoplasm of breast Mammogram [facility] Start: 08-05-2024 End: 08-05-2024 Patient encounter procedure [facility] Comment on above: Primary hypertension (Primary Dx); Overweight (BMI 25.0-29.9); Anxiety and depression ; Mixed hyperlipidemia ; Hypothyroidism, unspecified type ; Primary insomnia Start: 06-03-2024 End: 06-03-2024 Patient encounter procedure 06/03/2024 1:00 PM EDT [facility] [address] [place] [address] Jessica Sosa, BIOLOGY SPECIALIST [address] [place] [phone] [facility] Start: 04-22-2024 End: 04-22-2024 Patient encounter procedure [facility] Comment on above: Primary hypertension (CMS/HCC) (Primary Dx); Overweight (BMI 25.0-29.9) Start: 03-25-2024 End: 03-25-2024 Patient encounter procedure 03/25/2024 2:20 PM EST [facility] [address] [place] [address] Jessica Sosa, BIOLOGY SPECIALIST [address] [place] [phone] Obstructive sleep apnea (Primary Dx); Hypothyroidism, unspecified type (CMS/HCC); Overweight (BMI 25.0-29.9); Osteopenia, unspecified location; Anxiety and depression (CMS/HCC); Asymptomatic microscopic hematuria; Vitamin D deficiency; Mixed hyperlipidemia (CMS/HCC) [facility] Comment on above: Obstructive sleep ap sarah (Primary Dx); Hypothyroidism, unspecified type (CMS/HCC); Overweight (BMI 25.0-29.9); Osteopenia, unspecified location; Anxiety and depression (CMS/HCC); Asymptomatic microscopic hematuria; Vitamin D deficiency; Mixed hyperlipidemia (CMS/HCC) Start: 03-25-2024 End: 03-25-2025 25-hydroxyvitamin D3 [Mass/volume] in Serum or Plasma Vitamin D 25 hydroxy Lab Routine Vitamin D deficiency Expected: 03/25/2024 (Approximate), Expires: 03/25/2025 [facility] Comment on above: Expected: 03/25/2024 (Approximate), Expires: 03/25/2025 Start: 03-25-2024 End: 03-25-2025 CBC W Auto Differential panel - Blood CBC and differential Lab Routine Obstructive sleep apnea Hypothyroidism, unspecified type (CMS/HCC) Asymptomatic microscopic hematuria Expected: 03/25/2024 (Approximate), Expires: 03/25/2025 [facility] Work Phone: Comment on above: Expected: 03/25/2024 (Approximate), Expires: 03/25/2025 Start: 03-25-2024 End: 03-25-2025 Comprehensive metabolic 2000 panel - Serum or Plasma Comprehensive metabolic panel Lab Routine Hypothyroidism, unspecified type (CMS/HCC) Overweight (BMI 25.0-29.9) Osteopenia, unspecified location Expected: 03/25/2024 (Approximate), Expires: 03/25/2025 [facility] Comment on above: Expected: 03/25/2024 (Approximate), Expires: 03/25/2025 Start: 03-25-2024 End: 03-25-2025 Lipid 1996 panel - Serum or Plasma Lipid panel Lab Routine Mixed hyperlipidemia (CMS/HCC) Expected: 03/25/2024 (Approximate), Expires: 03/25/2025 [facility] Comment on above: Expected: 03/25/2024 (Approximate), Expires: 03/25/2025 Start: 03-25-2024 End: 03-25-2025 Thyrotropin [Units/volume] in Serum or Plasma TSH Lab Routine Hypothyroidism, unspecified type (CMS/HCC) Expected: 03/25/2024 (Approximate), Expires: 03/25/2025 [facility] Comment on above: Expected: 03/25/2024 (Approximate), Expires: 03/25/2025 Start: 03-25-2024 End: 03-25-2025 Thyroxine (T4) free [Mass/volume] in Serum or Plasma T4, free Lab Routine Hypothyroidism, unspecified type (CMS/HCC) Expected: 03/25/2024 (Approximate), Expires: 03/25/2025 [facility] Comment on above: Expected: 03/25/2024 (Approximate), Expires: 03/25/2025 Start: 03-25-2024 End: 03-25-2025 Urinalysis complete panel - Urine Urinalysis with reflex microscopic (clean catch) Lab Routine Asymptomatic microscopic hematuria Expected: 03/25/2024 (Approximate), Expires: 03/25/2025 [facility] Comment on above: Expected: 03/25/2024 (Approximate), Expires: 03/25/2025 Start: 12-21-2023 Influenza vaccination Influenza Vacc ine (#1) [facility] Comment on above: Postponed from 10/21 (Patient Refused) Start: 12-20-2023 End: 12-20-2023 Patient encounter procedure [facility] Comment on above: Arrived Start: 12-20-2023 End: 12-19-2024 DXA Skeletal system Views for bone density DEXA bone density Imaging Routine Osteopenia, unspecified location Post-menopausal Expected: 12/20/2023 (Approximate), Expires: 12/19/2024 [facility] Work Phone: Comment on above: Expected: 12/20/2023 (Approximate), Expires: 12/19/2024 Start: 12-16-2023 Medicare Annual Well ness (AWV) Medicare Annual Wellness (AWV) [facility] Start: 10-22-2023 Influenza vaccination Influenza Vacc ine (#1) [facility] Start: 10-18-2023 End: 12-17-2024 MG Breast - bilateral Screening Bilateral screening mammogram Imaging Routine Encounter for screening mammogram for malignant neoplasm of breast Expected: 10/18/2023 (Approximate), Expires: 12/17/2024 [facility] Work Phone: Comment on above: Expected: 10/18/2023 (Approximate), Expires: 12/17/2024 Start: 09-28-2023 Screening for malign ant neoplasm of breast Mammogram [facility] Start: 1955 Medicare Annual Well ness (AWV) Medicare Annual Wellness (AWV) [facility] Start: 1955 Screening for malign ant neoplasm of colon [facility] MG Breast - bilatera l Screening [facility] Immunizations Immunization Date Immunization Notes Care Provider Fa cility 03-25-2024 Seasonal trivalent influenza vaccine, adjuvanted, preservative free Jessica Sosa BIOLOGY SPECIALIST Work Phone: [facility] 01-04-2023 Influenza, High-dose Seasonal, Quadrivalent, Preservative Free Jessica Ian BIOLOGY SPECIALIST Work Phone: [facility] 01-04-2023 influenza virus vacc ine, unspecified formulation Jessica Ian BIOLOGY SPECIALIST Work Phone: [facility] Payers Date Payer Category Payer Medicare [employer] [place] [id number] 2022-Present [address] [place] [address] [id number] 2022 Medicare (Managed Care) [facility] MEDICARE [id number] 2022 Private Health Insurance [id number] 2022 Self-pay 2021 Unknown [id number] 2021 Unknown 2019 Medicaid 2017 Unknown [id number] 2016 Medicare [id number] 1959 Private Health Insurance [id number] 1959 Unknown [id number] 1954 Unknown [id number] [id number]. 647 1954 Unknown [id number] 2.16.840.1.721325.3.579.2. 196 1954 Unknown [id number] 2.16.840.1.039792.3.579.2. 196 1954 Unknown [id number] 2.16.840.1.511683.3.579.2. 593 1954 Unknown [id number] 2.16.840.1.329749.3.579.2. 593 1954 Unknown [id number] 2.16.840.1.299046.3.579.2. 593 1954 Unknown [id number] 2.16.840.1.418225.3.579.2. 593 1954 Unknown [id number] 2.16.840.1.579294.3.579.2. 593 1954 Unknown [id number] 2.16.840.1.561530.3.579.2. 593 1954 Unknown [id number] 2.16.840.1.754438.3.579.2. 593 1954 Unknown [id number] 2.16.840.1.403475.3.579.2. 727 1954 Unknown [id number] 2..840.1.037877.3.579.2. 1259 1954 Unknown [id number] 2.16.840.1.834814.3.579.2. 1259 1954 Unknown [id number] 2.16.840.1.641536.3.579.2. 1259 1954 Unknown [id number] 2.16.840.1.622251.3.579.2. 1259 1954 Unknown [id number] 2.16.840.1.355286.3.579.2. 1259 1954 Unknown [id number] 2.16.840.1.495193.3.579.2. 1259 Medicaid [id number] Private Health Insurance [id number] Unknown [id number] 2.16.840.1.197950.3.579.2. 531 Social History Date Type Detail Facility Start: 11-03-2021 End: 01-31-2023 Tobacco smoking status Never smoked tobacco (finding) [facility] Start: 03-28-2023 End: 12-20-2023 Sex Assigned At Female [facility] Start: 1955 Sex Assigned At Female F [facility] Start: 01-31-2023 Tobacco use and exposure Smokeless tobacco non-user [facility] Start: 10-18-2023 End: 08-05-2024 Alcoholic beverage intake Lifetime non-drinker (finding) [facility] [...] Alcohol Comment caffeine yes type:tea 1cup daily [facility] Start: 1955 Sex assigned at Not on file [facility] Tobacco smoking status NHIS Unknown if ever smoked [facility] Work Phone: Sex Female (finding) [facility] NEGATED: Highlighted rowStart: NINF History of tobacco use Passive smoker [facility] Functional Status Date Assessment Result Facility 11-03-2021 Functional Status N/A [facility] Clinical Notes 01-26-2021 to 08-05-2024 Jessica Sosa, BIOLOGY SPECIALIST - 08/05/2024 1:20 PM Cristobal Sosa, BIOLOGY SPECIALIST - 08/05/2024 6:59 AM Cristobal Sosa, BIOLOGY SPECIALIST - 08/05/2024 6:58 AM Cristobal Sosa, BIOLOGY SPECIALIST - 08/05/2024 6:58 AM EDTPatient Instructions Note Date & Type Note Facility 08-05-2024 History of Present illness Narrative Images from the original note were not included. Claudette Ross is a 68 y.o. female presents with chief complaint of Hypertension HPI: Depression: doing well on meds, Sig other and ex both last week Overall is coping fairly well Rash: supra pubic area under pannus: Hypertension This is a chronic problem. The current episode started more than 1 year ago. The problem is unchanged. The problem is controlled. Pertinent negatives include no anxiety, chest pain, headaches, palpitations, peripheral edema or shortness of breath. There are no associated agents to hypertension. Risk factors for coronary artery disease include obesity, dyslipidemia and sedentary lifestyle. Past treatments include angiotensin blockers. The current treatment provides significant improvement. There are no compliance problems. SUBJECTIVE: MEDICATIONS: Current Outpatient Medications Medication Instructions alendronate (FOSAMAX) 70 mg, Oral, Every 7 days, Take in the morning with a full glass of water, on an empty stomach, and do not take anything else by mouth or lie down for the next 30 min. amitriptyline (Elavil) 10 MG tablet Start with 1 pill at bedtime, after 7 days if not effective, then can increase to 2 pills ARIPiprazole (ABILIFY) 5 mg, Oral, Daily busPIRone (BUSPAR) 10 mg, Oral, Every 12 hours cetirizine (ZYRTEC) 10 mg, Oral, Daily levothyroxine (SYNTHROID, LEVOXYL) 75 mcg, Oral, Daily before breakfast losartan (COZAAR) 25 mg, Oral, Daily montelukast (SINGULAIR) 10 mg, Oral, Nightly naproxen (NAPROSYN) 500 mg, 2 times daily PRN nystatin (Mycostatin) cream Topical, 2 times daily sertraline (ZOLOFT) 100 mg, Oral, 2 times daily simvastatin (ZOCOR) 20 mg, Oral, Nightly ALLERGIES: Allergies Allergen Reactions [...] back pain, joint swelling and myalgias. Skin: Positive for rash. Negative for wound. Neurological: Negative for dizziness, tremors, seizures, syncope and headaches. Psychiatric/Behavioral: Negative for behavioral problems, self-injury and suicidal ideas. The patient is not nervous/anxious. Hematological: Does not bruise/bleed easily. Endocrine: Negative for polydipsia, polyphagia and polyuria. Allergic/Immunologic: Negative for environmental allergies and food allergies. PAST MEDICAL HISTORY Past Medical History: Diagnosis Date Abdominal pain 04/13/2023 Allergic rhinitis 04/13/2023 Anxiety and depression 04/13/2023 Asymptomatic microscopic hematuria 04/13/2023 Bronchitis 04/13/2023 Cervical paraspinal muscle spasm Chest pain 04/13/2023 Class 1 obesity due to excess calories without serious comorbidity in adult 01/31/2023 DDD (degenerative disc disease), cervical 04/13/2023 Diverticulosis 04/13/2023 Dyspnea 04/13/2023 Hyperlipidemia 04/13/2023 Hypertension 04/13/2023 Hypothyroidism 04/13/2023 Insect sting 04/13/2023 Insomnia 04/13/2023 Lumbar radiculopathy, acute 04/13/2023 Menopause 04/13/2023 Mild episode of recurrent major depressive disorder 01/31/2023 Obesity (BMI 30-39.9) 01/31/2023 Obstructive sleep [...] OTHER SURGICAL HISTORY Right hav 5th ht [place] REVISE ULNAR NERVE AT ELBOW Right 04/04/[address] Mccoy family history includes Heart disease in her father; Pancreatic cancer in her mother. OBJECTIVE: Visit Vitals BP 130/80 (BP Location: Left arm, Patient Position: Sitting, BP Cuff Size: Adult long) Pulse 81 Temp 98.5 F (Temporal) Resp 18 Wt 192 lb 6.4 oz SpO2 96% BMI 33.03 kg/m Smoking Status Never BSA 1.99 m Physical Exam Vitals and nursing note reviewed. Constitutional: General: She is not in acute distress. Appearance: Normal appearance. HENT: Head: Normocephalic and atraumatic. Right Ear: External ear normal. Left Ear: External ear normal. Nose: Nose normal. Mouth/Throat: Mouth: Mucous membranes are moist. Eyes: Extraocular Movements: Extraocular movements intact. Conjunctiva/sclera: Conjunctivae normal. Cardiovascular: Rate and Rhythm: Normal rate and [...] Normal range of motion and neck supple. Skin: General: Skin is warm and dry. Capillary Refill: Capillary refill takes 2 to 3 seconds. Findings: No rash (under pannus/suprapubic region erythema noted c/w yeast). Neurological: General: No focal deficit present. Mental Status: She is alert and oriented to person, place, and time. Psychiatric: Mood and Affect: Mood normal. Behavior: Behavior normal. Thought Content: Thought content normal. Judgment: Judgment normal. ASSESSMENT AND PLAN: Follow up in about 3 months (around 11/05/2024) for Recheck. Problem List Items Addressed This Visit Mixed hyperlipidemia On statin Check labs yearly and prn dose changes Relevant Medications simvastatin (Zocor) 20 MG tablet Mild episode of recurrent major depressive disorder Relevant Medications ARIPiprazole (Abilify) 5 MG tablet Anxiety and depression Current meds: abilify, buspar, sertaline and elavil Recent loss of prior significant other, as well as ex Relevant Medications busPIRone (Buspar) 10 MG tablet sertraline (Zoloft) 100 MG tablet Allergic rhinitis Relevant Medications cetirizine (ZyrTEC) 10 MG tablet montelukast (Singulair) 10 MG tablet Insomnia Current med: amitriptyline Relevant Medications amitriptyline (Elavil) 10 MG tablet Hypertension - Primary Please check blood pressure daily and record DASH diet Limit caffeine Take medication as directed Contact office if chest pain, pressure, dizziness, shortness of breath, swelling legs Recommend slow position changes Current med: losartan Relevant Medications losartan (Cozaar) 25 MG tablet Osteopenia Relevant Medications alendronate (Fosamax) 70 MG tablet Hypothyroidism Current meds: levothyroxine Check labs yearly and prn dose changes, or changes in symptoms Relevant Medications levothyroxine (Synthroid, Levoxyl) 75 MCG tablet Overweight (BMI 25.0-29.9) Candidiasis Relevant Medications nystatin (Mycostatin) cream Associated Problem(s): Insomnia Current med: amitriptyline Associated Problem(s): Hypothyroidism Current meds: levothyroxine Check labs yearly and prn dose changes, or changes in symptoms Associated Problem(s): Mixed hyperlipidemia On statin Check labs yearly and prn dose changes Associated Problem(s): Anxiety and depression Current meds: abilify, buspar, sertaline and elavil Recent loss of prior significant other, as well as ex Associated Problem(s): Hypertension Please check blood pressure daily and record DASH diet Limit caffeine Take medication as directed Contact office if chest pain, pressure, dizziness, shortness of breath, swelling legs Recommend slow position changes Current med: losartan documented in this encounter [facility] 08-05-2024 Instructions Jessica Sosa NP - 08/05/2024 1:20 PM EDT No medication changes documented in this encounter [facility] 06-03-2024 History of Present illness Narrative Associated Problem(s): Mild episode of recurrent major depressive disorder (HCC) (CMS/HCC) At this point, possible depression leading the fatigue situation Does not want to do her house chores, or doing things that bring her rianna Will increase aripiprazole to 5mg fu in 8 weeks Associated Problem(s): Osteopenia Refill foxamax Images from the original note were not included. Claudette Ross is a 68 y.o. female presents with chief complaint of No chief complaint on file. HPI: Hypertension This is a chronic problem. The current episode started more than 1 year ago. The problem is unchanged. The problem is controlled. Associated symptoms include blurred vision. Pertinent negatives include no chest pain, headaches, orthopnea, palpitations, peripheral edema or shortness of breath. There are no associated agents to hypertension. Risk factors for coronary artery disease include dyslipidemia, obesity and sedentary lifestyle. Past treatments include angiotensin blockers. The current treatment provides significant improvement. There are no compliance problems. There is no history of kidney disease. Depression Visit Type: follow-up Patient presents with the following symptoms: fatigue. Patient is not experiencing: decreased concentration, nervousness/anxiety, palpitations, shortness of breath, suicidal ideas, suicidal planning and thoughts of . Frequency of symptoms: most days Severity: interfering with daily activities Sleep quality: good Nighttime awakenings: none Compliance with medications: 76-100% SUBJECTIVE: MEDICATIONS: Current Outpatient Medications Medication Instructions alendronate (FOSAMAX) 70 mg, Oral, Every 7 days, Take in the morning with a full glass of water, on an empty stomach, and do not take anything else by mouth or lie down for the next 30 min. amitriptyline (Elavil) 10 MG tablet Start with 1 pill at bedtime, after 7 days if not effective, then can increase to 2 pills ARIPiprazole (ABILIFY) 5 mg, Oral, Daily busPIRone (BUSPAR) 10 mg, Oral, Every 12 hours cetirizine (ZYRTEC) 10 mg, Oral, Daily levothyroxine (SYNTHROID, LEVOXYL) 75 mcg, Oral, Daily before breakfast losartan (COZAAR) 25 mg, Oral, Daily montelukast (SINGULAIR) 10 mg, Oral, Nightly naproxen (NAPROSYN) 500 mg, 2 times daily PRN sertraline (ZOLOFT) 100 mg, Oral, 2 times daily simvastatin (ZOCOR) 20 mg, Oral, Nightly ALLERGIES: Allergies Allergen Reactions Hydrocodone-Acetaminophen Vicodin Sulfamethoxazole-Trimethoprim Hives Codeine Rash Hydrocodone Rash Oxycodone Rash Oxycodone-Acetaminophen Rash But can take regular tylenol okay REVIEW OF SYMPTOMS: Review of Systems Constitutional: Negative for appetite change, chills and fever. HENT: Negative for congestion, ear pain and sore throat. Eyes: Positive for blurred vision. Negative for pain, discharge, redness and visual disturbance. Respiratory: Negative for cough, shortness of breath and wheezing. Cardiovascular: Negative for chest pain, palpitations, orthopnea and leg swelling. Gastrointestinal: Negative for abdominal [...] episode of recurrent major depressive disorder (HCC) (CMS/[facility]) 01/31/2023 Obesity (BMI 30-39.9) 01/31/2023 Obstructive sleep [...] OTHER SURGICAL HISTORY Right hav 5th ht [place] REVISE ULNAR NERVE AT ELBOW Right 04/04/[address] Mccoy family history includes Heart disease in her father; Pancreatic cancer in her mother. OBJECTIVE: Visit Vitals BP 128/72 (BP Location: Left arm, Patient Position: Sitting, BP Cuff Size: Large adult) Pulse 88 Temp 98.1 F (Temporal) Resp 18 Wt 194 lb 3.2 oz SpO2 96% BMI 33.33 kg/m Smoking Status Never BSA 1.99 m Physical Exam Vitals and nursing note reviewed. Constitutional: General: She is not in acute distress. Appearance: Normal appearance. HENT: Head: Normocephalic and atraumatic. Right Ear: External ear normal. Left Ear: External ear normal. Nose: Nose normal. Mouth/Throat: Mouth: Mucous membranes are moist. Eyes: Extraocular Movements: Extraocular movements intact. Conjunctiva/sclera: Conjunctivae normal. Cardiovascular: Rate and Rhythm: Normal rate and [...] Normal range of motion and neck supple. Skin: General: Skin is warm and dry. Capillary Refill: Capillary refill takes 2 to 3 seconds. Findings: No rash. Neurological: General: No focal deficit present. Mental Status: She is alert and oriented to person, place, and time. Psychiatric: Mood and Affect: Mood normal. Behavior: Behavior normal. Thought Content: Thought content normal. Judgment: Judgment normal. ASSESSMENT AND PLAN: Follow up in about 8 weeks (around 07/29/2024) for Recheck. Problem List Items Addressed This Visit Mild episode of recurrent major depressive disorder (HCC) ([facility]) - Primary At this point, possible depression leading the fatigue situation Does not want to do her house chores, or doing things that bring her rianna Will increase aripiprazole to 5mg fu in 8 weeks Relevant Medications ARIPiprazole (Abilify) 5 MG tablet Obstructive sleep apnea You have a diagnosis [...] was suffocating her, no further fu appts Insomnia At last appt stopped trazodone, and has been prescribed elavil Sleeping well with 10mg dose, no changes Hypertension ([facility]) Please check blood pressure daily and record DASH diet Limit caffeine Take medication as directed Contact office if chest pain, pressure, dizziness, shortness of breath, swelling legs Recommend slow position changes Current med: losartan Relevant Medications losartan (Cozaar) 25 MG tablet Osteopenia Refill foxamax Relevant Medications alendronate (Fosamax) 70 MG tablet Hypothyroidism ([facility]/HCC) Current meds: levothyroxine Check labs yearly and prn dose changes, or changes in symptoms Associated Problem(s): Insomnia At last appt stopped trazodone, and has been prescribed elavil Sleeping well with 10mg dose, no changes Associated Problem(s): Anxiety and depression (CMS/HCC) Current meds: abilify, buspar, sertaline and elavil Associated Problem(s): Hypothyroidism (CMS/HCC) Current meds: levothyroxine Check labs yearly and prn dose changes, or changes in symptoms Associated Problem(s): Hypertension (CMS/HCC) Please check blood pressure daily and record DASH diet Limit caffeine Take medication as directed Contact office if chest pain, pressure, dizziness, shortness of breath, swelling legs Recommend slow position changes Current med: losartan Associated Problem(s): Obstructive sleep apnea You have [...] was suffocating her, no further fu appts documented in this encounter [facility] 06-03-2024 Instructions Jessica Sosa NP - 06/03/2024 1:00 PM EDT Increase the dose on the aripiprazole from 2mg to 5mg documented in this encounter [facility] 03-03-2025 History of Present illness Narrative Associated Problem(s): Insomnia Has ANITA, is in need of an updated sleep study Is currently taking trazodone at 100mg daily Discontinue trazodone, will trial amitriptyline 10mg Start with 1 pill at HS, if after 7 days not helping, then increase to 2 pills at HS I did discuss symptoms of worsening depression if this happens contact office Associated Problem(s): Obstructive sleep apnea You have [...] is not having good toleration of things Associated Problem(s): Anxiety and depression (CMS/HCC) Current meds: abilify, buspar, sertaline and trazodone Does not feel her trazodone is helping her to sleep Pt states that the 2 50mg tabs of trazodone still does not work she was still up til 3-4am Images from the original note were not included. Claudette Ross is a 68 y.o. female presents with chief complaint of Hypertension HPI: Insomnia: has been on trazodone for some time, it used to work but increase to 100mg at HS still not sleeping trouble falling and staying asleep Up half the night , which then in turn effects her use of PAP machine. She reports Dr Canseco is aware of sleep issues, but did not change any meds to help her sleep Hypertension This is a chronic problem. The current episode started more than 1 year ago. The problem is unchanged. The problem is controlled. Pertinent negatives include no blurred vision, chest pain, headaches, palpitations, peripheral edema or shortness of breath. There are no associated agents to hypertension. Risk factors for coronary artery disease include dyslipidemia, obesity and sedentary lifestyle. Past treatments include angiotensin blockers. The current treatment provides significant improvement. There are no compliance problems. Insomnia This is a chronic problem. The current episode started more than 1 year ago. The problem occurs daily. The problem has been unchanged. Pertinent negatives include no abdominal pain, arthralgias, chest pain, chills, congestion, coughing, fever, headaches, joint swelling, myalgias, nausea, rash, sore throat, vertigo, visual change or vomiting. The symptoms are aggravated by stress. Treatments tried: trazodone. SUBJECTIVE: MEDICATIONS: Current Outpatient Medications Medication Instructions alendronate (FOSAMAX) 70 mg, Oral, Every 7 days, Take in the morning with a full glass of water, on an empty stomach, and do not take anything else by mouth or lie down for the next 30 min. amitriptyline (Elavil) 10 MG tablet Start with 1 pill at bedtime, after 7 days if not effective, then can increase to 2 pills ARIPiprazole (ABILIFY) 2 mg, Oral, Daily busPIRone (BUSPAR) 10 mg, Oral, Every 12 hours cetirizine (ZYRTEC) 10 mg, Oral, Daily levothyroxine (SYNTHROID, LEVOXYL) 75 mcg, Oral, Daily before breakfast losartan (COZAAR) 25 mg, Oral, Daily montelukast (SINGULAIR) 10 mg, Oral, Nightly naproxen (NAPROSYN) 500 mg, 2 times daily PRN sertraline (ZOLOFT) 100 mg, Oral, 2 times daily simvastatin (ZOCOR) 20 mg, Oral, Nightly ALLERGIES: Allergies Allergen Reactions Hydrocodone-Acetaminophen Vicodin Sulfamethoxazole-Trimethoprim Hives Codeine Rash Hydrocodone Rash Oxycodone Rash Oxycodone-Acetaminophen Rash But can take regular tylenol okay REVIEW OF SYMPTOMS: Review of Systems Constitutional: Negative for appetite change, chills and fever. HENT: Negative for congestion, ear pain and sore throat. Eyes: Negative for blurred vision, pain, discharge, redness and visual disturbance. Respiratory: [...] rash and wound. Neurological: Negative for dizziness, vertigo, tremors, seizures, syncope and headaches. Psychiatric/Behavioral: Positive for sleep disturbance. Negative for behavioral problems, self-injury and suicidal ideas. The patient has insomnia. The patient is not nervous/anxious. Hematological: Does [...] OTHER SURGICAL HISTORY Right hav 5th ht [place] REVISE ULNAR NERVE AT ELBOW Right 04/04/[address] Mccoy family history includes Heart disease in her father; Pancreatic cancer in her mother. OBJECTIVE: Visit Vitals BP 132/80 (BP Location: Left arm, Patient Position: Sitting, BP Cuff Size: Adult long) Pulse 98 Temp 98.1 F (Temporal) Resp 20 Wt 193 lb SpO2 97% BMI 33.13 kg/m Smoking Status Never BSA 1.99 m Physical Exam Vitals and nursing note reviewed. Constitutional: General: She is not in acute distress. Appearance: Normal appearance. HENT: Head: Normocephalic and atraumatic. Right Ear: External ear normal. Left Ear: External ear normal. Nose: Nose normal. Mouth/Throat: Mouth: Mucous membranes are moist. Eyes: Extraocular Movements: Extraocular movements intact. Conjunctiva/sclera: Conjunctivae normal. Cardiovascular: Rate and Rhythm: Normal rate and [...] No edema. Left lower leg: No edema. Skin: General: Skin is warm and dry. Capillary Refill: Capillary refill takes 2 to 3 seconds. Findings: No rash. Neurological: General: No focal deficit present. Mental Status: She is alert and oriented to person, place, and time. Psychiatric: Mood and Affect: Mood normal. Behavior: Behavior normal. Thought Content: Thought content normal. Judgment: Judgment normal. ASSESSMENT AND PLAN: Follow up in about 6 weeks (around 06/03/2024) for Recheck. Problem List Items Addressed This Visit Anxiety and depression (CMS/HCC) Current meds: abilify, buspar, sertaline and trazodone Does not feel her trazodone is helping her to sleep Obstructive sleep apnea You have a diagnosis [...] is not having good toleration of things Insomnia Has ANITA, is in need of an updated sleep study Is currently taking trazodone at 100mg daily Discontinue trazodone, will trial amitriptyline 10mg Start with 1 pill at HS, if after 7 days not helping, then increase to 2 pills at HS I did discuss symptoms of worsening depression if this happens contact office Relevant Medications amitriptyline (Elavil) 10 MG tablet Hypertension (CMS/HCC) - Primary Please check blood pressure daily and record DASH diet Limit caffeine Take medication as directed Contact office if chest pain, pressure, dizziness, shortness of breath, swelling legs Recommend slow position changes At last appt started losartan at 25mg daily, significant improvement Will cont losartan at 25mg daily Overweight (BMI 25.0-29.9) Associated Problem(s): Hypertension (CMS/HCC) Please check blood pressure daily and record DASH diet Limit caffeine Take medication as directed Contact office if chest pain, pressure, dizziness, shortness of breath, swelling legs Recommend slow position changes At last appt started losartan at 25mg daily, significant improvement Will cont losartan at 25mg daily documented in this encounter [facility] 04-22-2024 Instructions Jessica Sosa NP - 04/22/2024 1:20 PM EST Discontinue trazodone for sleep We will trial amitriptyline 10mg: start with 1 pill at bedtime, if after 7 days if it is not helping you sleep, then increase to 2 pills (total of 20mg) documented in this encounter [facility] 03-25-2024 History of Present illness Narrative Associated [...] OTHER SURGICAL HISTORY Right hav 5th ht [place] N[place] Right 04/04/2018 [...] things Relevant Orders CBC and differential Hypertension ([facility]) Please check blood pressure daily and record [...] Relevant Orders Vitamin D 25 hydroxy Hypothyroidism (CMS/[facility]) Current medication : levothyroxine Check labs yearly and prn dose changes or changes in symptms Relevant Medications levothyroxine (Synthroid, Levoxyl) 75 MCG tablet Other Relevant Orders CBC and differential Comprehensive metabolic panel TSH T4, free Overweight (BMI 25.0-29.9) Relevant Orders Comprehensive metabolic panel Needs flu shot Consent signed VIS given Relevant Orders Flu vaccine, trivalent, adjuvanted, PF ([id number]) (Fluad trivalent single dose syringe) Associated Problem(s): [...] toleration of things documented in this encounter [facility] 03-25-2024 Instructions Jessica Sosa NP - 03/25/2024 2:20 PM EST For blood pressure: start losartan 25mg pill daily. Get labs checked in 3 weeks Low sodium diet Bone Density scan at [facility] documented in this encounter [facility] 12-20-2023 History of Present illness Narrative [...] OTHER SURGICAL HISTORY Right hav 5th ht [place] Right 04/04/2018 [...] a yearly basis documented in this encounter [facility] 10-18-2023 History of Present illness Narrative [...] from company on getting machine. It is [employer] [phone]. I spoke with Loraine at [facility], she also does not [...] OTHER SURGICAL HISTORY Right hav 5th ht [place] Right 04/04/2018 [...] Bilateral screening mammogram documented in this encounter [facility] 12-09-2021 Note PROCEDURE: XR HIP RT 2 3V WO PELVIS HISTORY: Pain in right hip joint , acute; no known injury COMPARISON: None. FINDINGS: BONES:No fracture, acute abnormality, or significant arthropathy. SOFT TISSUES:No visible soft tissue swelling. EFFUSION:None visible. OTHER: Negative. IMPRESSION: 1. No acute bone abnormality or significant degenerative joint disease. Electronically authenticated by: JEROME AYALA Date: 2021-12-09 06:48 [facility] 11-03-2021 Hospital Discharge instructions Patient Education 11/03/2021 [...] fried and sweet foods. General instructions Take [id number] and prescription medicines only as told by [...] 12/03/2009 Document Revised: 05/30/2019 Document Reviewed: 02/22/2018 [employer] Patient Education 2019 [place]. Follow Up Care 10/15/2021 09:20:30 With:LINDA MASON PA-C, URL Address: [address] [place] [address] When:1 year [facility] 01-26-2021 Note Procedure: Portable AP view [...] Signed, Electronically Signed in Other Vendor System) [facility] Evaluation + Plan note Future Appointments Appointment Date:11/09/2022 02:00:00 PM Scheduled Provider:LINDA MASON PA-C Location:[facility] Appointment Type:URO Office Visit [facility] Evaluation note No assessment inform ation [facility] Work Phone: Evaluation note Diagnosis Mild episode of recurrent major depressive disorder (HCC) (CMS/HCC)- Primary Obesity (BMI 30-39.9) Anxiety and depression ([facility]/HCC)- Primary Primary hypertension ([facility]) Unspecified essential hypertension Asymptomatic microscopic hematuria Osteopenia, unspecified location Vitamin D deficiency Mixed hyperlipidemia (CMS/HCC) Mixed hyperlipidemia Hypothyroidism, unspecified type (CMS/HCC) Obesity (BMI 30-39.9) Mild episode of recurrent major depressive disorder (HCC) ([facility]) Allergic rhinitis, unspecified seasonality, unspecified trigger Skin candidiasis Candidiasis of skin and nails Obstructive sleep apnea- Primary Obstructive sleep apnea (adult) (pediatric) Allergic rhinitis, unspecified seasonality, unspecified trigger Anxiety and depression (CMS/HCC) Mixed hyperlipidemia ([facility]) Mixed hyperlipidemia Osteopenia, unspecified location Vitamin D deficiency Hypothyroidism, unspecified type ([facility]) Urinary incontinence in female Primary hypertension ([facility]) Unspecified essential hypertension Skin candidiasis Candidiasis of skin and nails Class 1 obesity due to excess calories without serious comorbidity with body mass index (BMI) of 31.0 to 31.9 in adult Encounter for screening mammogram for malignant neoplasm of breast Osteopenia, unspecified location Anxiety and depression ([facility]/HCC) Allergic rhinitis, unspecified seasonality, unspecified trigger Vitamin D deficiency Hypothyroidism, unspecified type ([facility]) Urinary incontinence in female Mixed hyperlipidemia ([facility]/HCC) Mixed hyperlipidemia Obesity (BMI 30-39.9) Obstructive sleep apnea Obstructive sleep apnea (adult) (pediatric) Encounter for subsequent annual wellness visit (AWV) in Medicare patient- Primary Obesity (BMI 30-39.9) Hypothyroidism, unspecified type ([facility]) Mixed hyperlipidemia ([facility]) Mixed hyperlipidemia Anxiety and depression ([facility]) Overweight (BMI 25.0-29.9) Overweight Obstructive sleep apnea Obstructive sleep apnea (adult) (pediatric) Osteopenia, unspecified location Post-menopausal Asymptomatic postmenopausal status (age-related) (natural) documented [facility] Diagnosis Encounter for screening mammogram for malignant neoplasm of breast Osteopenia, unspecified location Anxiety and depression ([facility]/HCC) Allergic rhinitis, unspecified seasonality, unspecified trigger Vitamin D deficiency Hypothyroidism, unspecified type ([facility]) Urinary incontinence in female Mixed hyperlipidemia ([facility]/HCC) Mixed hyperlipidemia Obesity (BMI 30-39.9) Obstructive sleep apnea Obstructive sleep apnea (adult) (pediatric) [facility]* Diagnosis Mild episode of recurrent major depressive disorder (HCC) ([facility])- Primary Obesity (BMI 30-39.9) Anxiety and depression (CMS/HCC)- Primary Primary hypertension ([facility]) Unspecified essential hypertension Asymptomatic microscopic hematuria Osteopenia, unspecified location Vitamin D deficiency Mixed hyperlipidemia (CMS/HCC) Mixed hyperlipidemia Hypothyroidism, unspecified type (CMS/HCC) Obesity (BMI 30-39.9) Mild episode of recurrent major depressive disorder (HCC) ([facility]) Allergic rhinitis, unspecified seasonality, unspecified trigger Skin candidiasis Candidiasis of skin and nails Obstructive sleep apnea- Primary Obstructive sleep apnea (adult) (pediatric) Allergic rhinitis, unspecified seasonality, unspecified trigger Anxiety and depression (CMS/HCC) Mixed hyperlipidemia ([facility]/HCC) Mixed hyperlipidemia Osteopenia, unspecified location Vitamin D deficiency Hypothyroidism, unspecified type ([facility]) Urinary incontinence in female Primary hypertension ([facility]) Unspecified essential hypertension Skin candidiasis Candidiasis of skin and nails Class 1 obesity due to excess calories without serious comorbidity with body mass index (BMI) of 31.0 to 31.9 in adult Encounter for screening mammogram for malignant neoplasm of breast Osteopenia, unspecified location Anxiety and depression ([facility]) Allergic rhinitis, unspecified seasonality, unspecified trigger Vitamin D deficiency Hypothyroidism, unspecified type ([facility]) Urinary incontinence in female Mixed hyperlipidemia ([facility]) Mixed hyperlipidemia Obesity (BMI 30-39.9) Obstructive sleep apnea Obstructive sleep apnea (adult) (pediatric) Encounter for subsequent annual wellness visit (AWV) in Medicare patient- Primary Obesity (BMI 30-39.9) Hypothyroidism, unspecified type ([facility]/HCC) Mixed hyperlipidemia ([facility]/HCC) Mixed hyperlipidemia Anxiety and depression ([facility]) Overweight (BMI 25.0-29.9) Overweight Obstructive sleep apnea Obstructive sleep apnea (adult) (pediatric) Osteopenia, unspecified location Post-menopausal Asymptomatic postmenopausal status (age-related) (natural) Primary hypertension ([facility])- Primary Unspecified essential hypertension Obstructive sleep apnea Obstructive sleep apnea (adult) (pediatric) Hypothyroidism, unspecified type (CMS/HCC) Overweight (BMI 25.0-29.9) Overweight Osteopenia, unspecified location Anxiety and depression (CMS/HCC) Asymptomatic microscopic hematuria Vitamin D deficiency Mixed hyperlipidemia (CMS/HCC) Mixed hyperlipidemia Needs flu shot Need for prophylactic vaccination and inoculation against influenza Allergic rhinitis, unspecified seasonality, unspecified trigger documented in this encounter [facility]* Diagnosis Mild episode of recurrent major depressive disorder (HCC) ([facility])- Primary Obesity (BMI 30-39.9) Anxiety and depression ([facility])- Primary Primary hypertension ([facility]) Unspecified essential hypertension Asymptomatic microscopic hematuria Osteopenia, unspecified location Vitamin D deficiency Mixed hyperlipidemia (CMS/HCC) Mixed hyperlipidemia Hypothyroidism, unspecified type ([facility]) Obesity (BMI 30-39.9) Mild episode of recurrent major depressive disorder (HCC) ([facility]) Allergic rhinitis, unspecified seasonality, unspecified trigger Skin candidiasis Candidiasis of skin and nails Obstructive sleep apnea- Primary Obstructive sleep apnea (adult) (pediatric) Allergic rhinitis, unspecified seasonality, unspecified trigger Anxiety and depression ([facility]/HCC) Mixed hyperlipidemia ([facility]/HCC) Mixed hyperlipidemia Osteopenia, unspecified location Vitamin D deficiency Hypothyroidism, unspecified type ([facility]) Urinary incontinence in female Primary hypertension ([facility]) Unspecified essential hypertension Skin candidiasis Candidiasis of skin and nails Class 1 obesity due to excess calories without serious comorbidity with body mass index (BMI) of 31.0 to 31.9 in adult Encounter for screening mammogram for malignant neoplasm of breast Osteopenia, unspecified location Anxiety and depression ([facility]) Allergic rhinitis, unspecified seasonality, unspecified trigger Vitamin D deficiency Hypothyroidism, unspecified type ([facility]) Urinary incontinence in female Mixed hyperlipidemia ([facility]) Mixed hyperlipidemia Obesity (BMI 30-39.9) Obstructive sleep apnea Obstructive sleep apnea (adult) (pediatric) Encounter for subsequent annual wellness visit (AWV) in Medicare patient- Primary Obesity (BMI 30-39.9) Hypothyroidism, unspecified type ([facility]) Mixed hyperlipidemia ([facility]/HCC) Mixed hyperlipidemia Anxiety and depression ([facility]) Overweight (BMI 25.0-29.9) Overweight Obstructive sleep apnea Obstructive sleep apnea (adult) (pediatric) Osteopenia, unspecified location Post-menopausal Asymptomatic postmenopausal status (age-related) (natural) Primary hypertension ([facility])- Primary Unspecified essential hypertension Obstructive sleep apnea Obstructive sleep apnea (adult) (pediatric) Hypothyroidism, unspecified type ([facility]) Overweight (BMI 25.0-29.9) Overweight Osteopenia, unspecified location Anxiety and depression ([facility]) Asymptomatic microscopic hematuria Vitamin D deficiency Mixed hyperlipidemia (CMS/HCC) Mixed hyperlipidemia Needs flu shot Need for prophylactic vaccination and inoculation against influenza Allergic rhinitis, unspecified seasonality, unspecified trigger Primary hypertension ([facility]/HCC)- Primary Unspecified essential hypertension Overweight (BMI 25.0-29.9) Overweight Anxiety and depression ([facility]) Obstructive sleep apnea Obstructive sleep apnea (adult) (pediatric) Primary insomnia Persistent disorder of initiating or maintaining sleep documented [facility]* Diagnosis Mild episode of recurrent major depressive disorder (HCC) ([facility])- Primary Obesity (BMI 30-39.9) Anxiety and depression ([facility])- Primary Primary hypertension ([facility]) Unspecified essential hypertension Asymptomatic microscopic hematuria Osteopenia, unspecified location Vitamin D deficiency Mixed hyperlipidemia ([facility]) Mixed hyperlipidemia Hypothyroidism, unspecified type ([facility]) Obesity (BMI 30-39.9) Mild episode of recurrent major depressive disorder (HCC) ([facility]) Allergic rhinitis, unspecified seasonality, unspecified trigger Skin candidiasis Candidiasis of skin and nails Obstructive sleep apnea- Primary Obstructive sleep apnea (adult) (pediatric) Allergic rhinitis, unspecified seasonality, unspecified trigger Anxiety and depression ([facility]/HCC) Mixed hyperlipidemia ([facility]) Mixed hyperlipidemia Osteopenia, unspecified location Vitamin D deficiency Hypothyroidism, unspecified type ([facility]) Urinary incontinence in female Primary hypertension ([facility]) Unspecified essential hypertension Skin candidiasis Candidiasis of skin and nails Class 1 obesity due to excess calories without serious comorbidity with body mass index (BMI) of 31.0 to 31.9 in adult Encounter for screening mammogram for malignant neoplasm of breast Osteopenia, unspecified location Anxiety and depression ([facility]) Allergic rhinitis, unspecified seasonality, unspecified trigger Vitamin D deficiency Hypothyroidism, unspecified type ([facility]) Urinary incontinence in female Mixed hyperlipidemia ([facility]) Mixed hyperlipidemia Obesity (BMI 30-39.9) Obstructive sleep apnea Obstructive sleep apnea (adult) (pediatric) Encounter for subsequent annual wellness visit (AWV) in Medicare patient- Primary Obesity (BMI 30-39.9) Hypothyroidism, unspecified type ([facility]) Mixed hyperlipidemia ([facility]) Mixed hyperlipidemia Anxiety and depression ([facility]) Overweight (BMI 25.0-29.9) Overweight Obstructive sleep apnea [...] influenza Allergic rhinitis, unspecified seasonality, unspecified trigger Primary hypertension (CMS/HCC)- Primary Unspecified essential hypertension Overweight (BMI 25.0-29.9) Overweight Anxiety and depression (CMS/HCC) Obstructive sleep apnea Obstructive sleep apnea (adult) (pediatric) Primary insomnia Persistent disorder of initiating or maintaining sleep Mild episode of recurrent major depressive disorder (HCC) (CMS/HCC)- Primary Obstructive sleep apnea Obstructive sleep apnea (adult) (pediatric) Primary hypertension (CMS/HCC) Unspecified essential hypertension Hypothyroidism, unspecified type (CMS/HCC) Primary insomnia Persistent disorder of initiating or maintaining sleep Osteopenia, unspecified location documented in this encounter [facility]* Diagnosis Mild episode of recurrent [...] hyperlipidemia (CMS/HCC) Mixed hyperlipidemia Anxiety and depression (CMS/[facility]) Overweight (BMI 25.0-29.9) Overweight Obstructive sleep apnea Obstructive sleep apnea (adult) (pediatric) Osteopenia, unspecified location Post-menopausal Asymptomatic postmenopausal status (age-related) (natural) Primary hypertension (CMS/[facility])- Primary Unspecified essential hypertension Obstructive sleep apnea Obstructive sleep apnea (adult) (pediatric) Hypothyroidism, unspecified type ([facility]) Overweight (BMI 25.0-29.9) Overweight Osteopenia, unspecified location Anxiety and depression (CMS/[facility]) Asymptomatic microscopic hematuria Vitamin D deficiency Mixed hyperlipidemia ([facility]) Mixed hyperlipidemia Needs flu shot Need for prophylactic vaccination and inoculation against influenza Allergic rhinitis, unspecified seasonality, unspecified trigger Primary hypertension ([facility])- Primary Unspecified essential hypertension Overweight (BMI 25.0-29.9) Overweight Anxiety and depression (CMS/[facility]) Obstructive sleep apnea Obstructive sleep apnea (adult) (pediatric) Primary insomnia Persistent disorder of initiating or maintaining sleep Mild episode of recurrent major depressive disorder (HCC) (CMS/[facility])- Primary Obstructive sleep apnea Obstructive sleep apnea (adult) (pediatric) Primary hypertension ([facility]) Unspecified essential hypertension Hypothyroidism, unspecified type ([facility]) Primary insomnia Persistent disorder of initiating or maintaining sleep Osteopenia, unspecified location Skin candidiasis Candidiasis of skin and nails documented [facility]* Diagnosis Mild episode of recurrent major depressive disorder- Primary Obesity (BMI 30-39.9) Anxiety and depression- Primary Primary hypertension Unspecified essential hypertension Asymptomatic microscopic hematuria Osteopenia, unspecified location Vitamin D deficiency Mixed hyperlipidemia Mixed hyperlipidemia Hypothyroidism, unspecified type Obesity (BMI 30-39.9) Mild episode of recurrent major depressive disorder Allergic rhinitis, unspecified seasonality, unspecified trigger Skin candidiasis Candidiasis of skin and nails Obstructive sleep apnea- Primary Obstructive sleep apnea (adult) (pediatric) Allergic rhinitis, unspecified seasonality, unspecified trigger Anxiety and depression Mixed hyperlipidemia Mixed hyperlipidemia Osteopenia, unspecified location Vitamin D deficiency Hypothyroidism, unspecified type Urinary incontinence in female Primary hypertension Unspecified essential hypertension Skin candidiasis Candidiasis of skin and nails Class 1 obesity due to excess calories without serious comorbidity with body mass index (BMI) of 31.0 to 31.9 in adult Encounter for screening mammogram for malignant neoplasm of breast Osteopenia, unspecified location Anxiety and depression Allergic rhinitis, unspecified seasonality, unspecified trigger Vitamin D deficiency Hypothyroidism, unspecified type Urinary incontinence in female Mixed hyperlipidemia Mixed hyperlipidemia Obesity (BMI 30-39.9) Obstructive sleep apnea Obstructive sleep apnea (adult) (pediatric) Encounter for subsequent annual wellness visit (AWV) in Medicare patient- Primary Obesity (BMI 30-39.9) Hypothyroidism, unspecified type Mixed hyperlipidemia Mixed hyperlipidemia Anxiety and depression Overweight (BMI 25.0-29.9) Overweight Obstructive sleep apnea Obstructive sleep apnea (adult) (pediatric) Osteopenia, unspecified location Post-menopausal Asymptomatic postmenopausal status (age-related) (natural) Primary hypertension- Primary Unspecified essential hypertension Obstructive sleep apnea Obstructive sleep apnea (adult) (pediatric) Hypothyroidism, unspecified type Overweight (BMI 25.0-29.9) Overweight Osteopenia, unspecified location Anxiety and depression Asymptomatic microscopic hematuria Vitamin D deficiency Mixed hyperlipidemia Mixed hyperlipidemia Needs flu shot Need for prophylactic vaccination and inoculation against influenza Allergic rhinitis, unspecified seasonality, unspecified trigger Primary hypertension- Primary Unspecified essential hypertension Overweight (BMI 25.0-29.9) Overweight Anxiety and depression Obstructive sleep apnea Obstructive sleep apnea (adult) (pediatric) Primary insomnia Persistent disorder of initiating or maintaining sleep Mild episode of recurrent major depressive disorder- Primary Obstructive sleep apnea Obstructive sleep apnea (adult) (pediatric) Primary hypertension Unspecified essential hypertension Hypothyroidism, unspecified type Primary insomnia Persistent disorder of initiating or maintaining sleep Osteopenia, unspecified location Primary hypertension- Primary Unspecified essential hypertension Overweight (BMI 25.0-29.9) Overweight Anxiety and depression Mixed hyperlipidemia Mixed hyperlipidemia Hypothyroidism, unspecified type Primary insomnia Persistent disorder of initiating or maintaining sleep Candidiasis Osteopenia, unspecified location Mild episode of recurrent major depressive disorder Allergic rhinitis, unspecified seasonality, unspecified trigger documented [facility]* Diagnosis Onset Date Resolution Status Admit Date Breast cancer screening by mammogram acute November 05, 2024 12:57pm Essential hypertension acute Se ptember 2024 12:57pm LATA (generalized anxiety disorder) acute November 05, 2024 12:57pm Hypothyroidism (acquired) acute November 05, 2024 12:57pm Insomnia acute October 12:57pm Major depressive disorder, recurrent, mild acute November 05, 2024 12:57pm ANITA (obstructive sleep apnea) acute November 05, 2024 12:57pm [facility] Work Phone: Hospital course Narrative No data available for this section [facility] Hospital Discharge instructions No data available for this section [facility] progress note No data available for this section [facility] reason for referral (narrative)No reason for referral information availableMadison [facility] Work Phone: Summary Purpose Family History No Family History Records FoundNo Family History Records FoundNo Family History Records FoundNo Family History Records FoundNo Family History Records FoundNo Family History Records FoundNo Family History Records FoundNo Family History Records Found Advance Directives Advance Directive Response Recorded Date/ Time Advance Directives No March 11, 2022 10:04am Advance Directive Response Recorded Date/ Time Advance Directives No March 11, 2022 11:04am Hospital Course Note MR#: [id number] [facility] Pt. Name: Claudette Ross Admitted: 03/05/2019 Discharged: [...] and she was transported via EMS to [facility]. In [place], an EKG was done that showed no significant changes and initial t (more content not included)... Chief Complaint and Reason for Visit Chief Complaint m20.11 Chief Complaint Admit Date 3M November 05, 2024 12:57pm Reason for Visit Admit Date Breast cancer screening by mammogram Sep tember 2024 12:57pm Essential hypertension November 05, 025 12:57pm LATA (generalized anxiety disorder) Septe mber 2024 12:57pm Hypothyroidism (acquired) October 12:57pm Insomnia November 05, 2024 12:57pm Major depressive disorder, recurrent, mi ld November 05, 2024 12:57pm ANITA (obstructive sleep apnea) November 05, 2024 12:57pm Additional Source Comments INFORMATION SOURCE (unrecogn ized section and content) DATE CREATED AUTHOR 08/08/2017 [facility] DATE CREATED AUTHOR AUTHOR'S ORGANIZ ATION 03/19/2019 [facility] DATE CREATED AUTHOR AUTHOR'S ORGANIZ ATION 03/19/2021 [facility] DATE CREATED AUTHOR AUTHOR'S ORGANIZ ATION 04/06/2021 [facility] DATE CREATED AUTHOR AUTHOR'S ORGANIZ ATION 03/26/2022 [facility] DATE CREATED AUTHOR AUTHOR'S ORGANIZ ATION 06/22/2022 [facility] DATE CREATED AUTHOR AUTHOR'S ORGANIZ ATION 11/11/2022 [facility] DATE CREATED AUTHOR AUTHOR'S ORGANIZ ATION 08/07/2024 [facility] dical Specialists EPIC Care Team (unrecognized sect ion and content) Team Status: Inactive Member Role Status Dates Jessica Sosa Primary Care Provider Active Yordan Batres DPM Attending Provider Active Team Status: Active Member Role Status Dates Jessica Sosa Primary Care Provider Active Unclaimed Property Officer Relationship Specialty Start Date End Date Pop Carreon MD [address] [place] [address] PCP - General Family Medicine 04/13/23 Jessica Sosa NP [address] [place] [phone] Nurse Practitioner Family Medicine 04/13/23 Unclaimed Property Officer Relationship Specialty Start Date End Date Pop Carreon MD [address] [place] [phone] PCP - General Family Medicine 04/13/23 Jessica Sosa NP [address] [place] [address] Nurse Practitioner Family Medicine 04/13/23 Unclaimed Property Officer Relationship Specialty Start Date End Date Pop Carreon MD [address] [place] [phone] PCP - General Family Medicine 04/13/23 Jessica Sosa NP [address] [place] [address] Nurse Practitioner Family Medicine 04/13/23 Unclaimed Property Officer Relationship Specialty Start Date End Date Pop Carreon MD [address] [place] [phone] PCP - General Family Medicine 04/13/23 Jessica Sosa NP [address] [place] [address] Nurse Practitioner Family Medicine 04/13/23 Unclaimed Property Officer Relationship Specialty Start Date End Date Pop Carreon MD [address] [place] [phone] PCP - General Family Medicine 04/13/23 Jessica Sosa NP [address] [place] [phone] Nurse Practitioner Family Medicine 04/13/23 Meghana Canseco DO [address] [place] [address] Referring Physician Neurology 03/15/24 Unclaimed Property Officer Relationship Specialty Start Date End Date Pop Carreon MD [address] [place] [phone] PCP - General Family Medicine 04/13/23 Jessica Sosa NP [address] [place] [phone] Nurse Practitioner Family Medicine 04/13/23 Meghana Canseco DO [address], [place] [id number] Referring Physician Neurology 03/15/24 Unclaimed Property Officer Relationship Specialty Start Date End Date Pop Carreon MD [address] [place] [phone] PCP - General Family Medicine 04/13/23 Jessica Sosa NP [address] [place] [phone] Nurse Practitioner Family Medicine 04/13/23 Meghana Canseco DO [address] [place] [address] Referring Physician Neurology 03/15/24 Unclaimed Property Officer Relationship Specialty Start Date End Date Pop Carreon MD [address] [place] [phone] PCP - General Family Medicine 04/13/23 Jessica Sosa NP [address] [place] [phone] Nurse Practitioner Family Medicine 04/13/23 Meghana Canseco DO [address] [place] [address] Referring Physician Neurology 03/15/24 Unclaimed Property Officer Relationship Specialty Start Date End Date Pop Carreon MD [address] [place] [phone] PCP - General Family Medicine 04/13/23 Jessica Sosa NP [address] [place] [phone] Nurse Practitioner Family Medicine 04/13/23 Meghana Canseco DO [address] [place] [address] Referring Physician Neurology 03/15/24 Unclaimed Property Officer Relationship Specialty Start Date End Date Pop Carreon MD [address] [place] [phone] PCP - General Family Medicine 04/13/23 Jessica Sosa NP [address] [place] [phone] Nurse Practitioner Family Medicine 04/13/23 Meghana Canseco DO [address] [place] [address] Referring Physician Neurology 03/15/24 Unclaimed Property Officer Relationship Specialty Start Date End Date Pop Carreon MD [address] [place] [phone] PCP - General Family Medicine 04/13/23 Jessica Sosa, KEY [address] [place] [phone] Nurse Practitioner Family Medicine 04/13/23 Meghana Canseco DO [address] [place] [address] Referring Physician Neurology 03/15/24 Unclaimed Property Officer Relationship Specialty Start Date End Date Pop Carreon MD [address] [place] [phone] PCP - General Family Medicine 04/13/23 Jessica Sosa, KEY [address] [place] [phone] Nurse Practitioner Family Medicine 04/13/23 Meghana Canseco DO [address] [place] [address] Referring Physician Neurology 03/15/24 Unclaimed Property Officer Relationship Specialty Start Date End Date Pop Carreon MD [address] [place] [phone] PCP - [facility] 04/13/23 Jessica Sosa NP [address] [place] [phone] Nurse Practitioner [facility] 04/13/23 Meghana Canseco DO [address] [place] [address] Referring Physician Neurology 03/15/24 Unclaimed Property Officer Relationship Specialty Start Date End Date Pop Carreon MD [address] [place] [phone] PCP - [facility] 04/13/23 Jessica Sosa NP [address] [place] [address] Nurse Practitioner [facility] 04/13/23 Meghana Canseco DO [address] [place] [address] Referring Physician Neurology 03/15/24 Team Status: Active Member Role Status Dates TOSHA Valente Primary Care Provider Active Team Status: Inactive Member Role Status Dates TOSHA Valente Primary Care Provider Active Start: November 05, 2024 End: November 05, 2024 TOSHA Valente Attending Provider Active Start: November 05, 2024 End: November 05, 2024 Goals (unrecognized section and content) Goals may be documented in a n alternate section Reason for Visit (unrecogniz ed section and content) Reason Comments Hypertension Reason Onset Date Comments Med Refill 07/25/2024 FOR RECORDS PERTAINING TO PATIENTS WHO ARE [...] BE BASED ON THE PRIMARY CLINICAL RECORDS. [facility]. provides no warranty or guarantee of the accuracy or completeness of information in this document.
== END 2024-11-11 09:53 | disposition home or self-care (01) ==
LOC: MAMMO 09:52
PROVIDERS: PCP Nurse Practitioner; Visit Provider Nurse Practitioner
DX: Z12.31 Encounter for screening mammogram for malignant neoplasm of breast (principal); Z80.8 Family history of malignant neoplasm of other organs or systems
CPT/HCPCS: 77063; 77067

== ENCOUNTER 2025-01-01 08:44 | Outpatient (OUT) | payer MEDICARE, MEDICAID, SELFPAY ==
--- OUTSIDE RECORDS SUMMARY | 2024-12-30 06:31 | XMS_ITS | Continuity of Care Document ---
Author Organization [facility] Address [address] [place] [address] Phone Care Team Providers Care Package Pick Up Name Role Phone Jessica Sosa RAIL CAR UNLOADER-C Primary Care Provider Jessica Sosa RAIL CAR UNLOADER-C Attending Provider Care Teams Patient Care Team Team Status: Active Member Role/Relationship Status Dates Jessica Sosa NP-C Primary Care Provider Active Visit Care Team Team Status: Inactive Member Role/Relationship Status Dates Jessica Sosa NP-C Primary Care Provider Active Start: November 05, 2024 End: November 05, 2024DEVEN ValenteCAtbobo ProviderActiveStart: November 05, 2024 End: November 05, 2024 Patient Care Team Team Status: Inactive Member Role/Relationship Status Dates Jessica Sosa NP-C Primary Care Provider Active Start: December 30, 2024 End: December 30, 2024DEVEN ValenteCAtbobo ProviderActiveStart: December 30, 2024 End: December 30, 2024 Chief Complaint and Reason for Visit Chief Complaint Admit Date November 05, 2024 12:57pm MEDICARE WELLNESS December 30, 2024 10:45am Reason for Visit Admit Date Breast cancer screening by mammogram [facility] 2024 12:57pm Essential hypertension November 05, 12:57pm LATA (generalized anxiety disorder) Michelle contreras 2024 12:57pm Hypothyroidism (acquired) October 12:57pm Insomnia November 05, 2024 12:57pm Major depressive disorder, recurrent, mi ld November 05, 2024 12:57pm Dizziness December 30, 2024 10:45am Encounter for subsequent migdalia ual wellness visit (AWV) in Medicare patient December 30, 2024 10:45am Essential hypertension December 30 10:45am LATA (generalized anxiety disorder) Novem 2024 10:45am Hypothyroidism (acquired) December 30, 2024 10:45am Osteopenia December 30, 2024 10:45am Overweight December 30, 2024 10:45am Allergies, Adverse Reactions, Alerts Allergen Type Severity Reaction Last Updated Verified Status acetaminophen Allergy Unknown Rash October 212024 2:36pm Yes Active codeine Allergy Unknown Rash October 2:36pm Yes Active hydrocodone Allergy Unknown Unknown Reaction Septemb er 2024 2:36pm Yes Active oxycodone Allergy Unknown Rash October 2:36pm Yes Active sulfamethoxazole All[facility] 2:[facility] Yes Active trimethoprim Allergy Unknown Hives November 032024 2:36pm Yes Active Social History Smoking Status Unknown if ever smoked Observation Status Observation Response Date of Response Legal Sex [facility] (finding) [facility] 1955 Problems Active Problems Problem Diagnosis/Recorded Date Onset Date Stat Arthritis of facet joint of lumbar spine November 03, 2024 2:37pm Unknown Active Encounter for subsequent migdalia ual wellness visit (AWV) in Medicare patient November 03, 2024 2:42pm Unknown Active Insomnia November 03, 2024 2:40pm Unknown Active ANITA (obstructive sleep apnea) November 03, 2024 2:4 0pm Unknown Active LATA (generalized anxiety disorder) November 03 2:39pm Unknown Active Breast cancer screening by mammogram November 05, 5:22am Unknown Active Lumbar spinal stenosis November 03, 2024 2:39pm Unk nown Active Hypothyroidism (acquired) November 03, 2024 2:42pm Unknown Active Dupuytren's contracture November 03, 2024 2:37pm Un known Active Skin candidiasis November 03, 2024 2:42pm Unknown Active Dizziness December 30, 2024 11:20am Unknown Active Ulnar neuropathy November 03, 2024 2:38pm Unknown Active Diverticulosis November 03, 2024 2:40pm Unknown Active Urinary incontinence in female November 03, 2024 2: 40pm Unknown Active Mixed hyperlipidemia November 03, 2024 2:38pm Unkno wn Active Post-menopausal November 03, 2024 2:39pm Unknown Active Pulmonary nodule November 03, 2024 2:40pm Unknown Active Overweight November 03, 2024 2:42pm Unknown Active Venous insufficiency of both lower extremities November 03, 2024 2:38pm Unknown Active Environmental and seasonal allergies November 03, 025 2:39pm Unknown Active Osteopenia November 03, 2024 2:41pm Unknown Active Breast cancer screening November 03, 2024 2:42pm Un known Active DDD (degenerative disc disea se), cervical November 03, 2024 2:41pm Unknown Active Essential hypertension November 03, 2024 2:40pm Unk nown Active Major depressive disorder, r ecurrent, mild November 03, 2024 2:39pm Unknown Active Asymptomatic microscopic hematuria November 03 2:41pm Unknown Active Allergic rhinitis November 03, 2024 2:39pm Unknown Active Bilateral carpal tunnel syndrome November 03, 2024 2:37pm Unknown Active Vitamin D deficiency November 03, 2024 2:41pm Unkno wn Active Medications Medication Status Dose Units Route Directions Qty Days Refills S tart Date Stop Date End Date Reason(s) Instructions Adherence Aripiprazole 5 mg tablet Active 5 MG PO Daily 90 1September 2024 8:56amGeneralized anxiety disorder Mild episode of recurrent major depressive disorder Generalized anxiety disorder Major depressive disorder, recurrent, mildComplies with drug therapyAlendronate 70 mg veonssKvvjjr18EHFAabros hgke450Ptoqqwy 2024 10:32amOsteopenia Other specified disorders of bone density and structure, unspecified site Complies with drug therapyLosartan 50 mg zvmideUoemow53ENQQBjruy766Eomyfqz 2024 10:33amPrimary hypertension Essential (primary) hypertensionComplies with drug therapyCetirizine (All Day Allergy (Cetirizine)) 10 mg cctgljZhtgkk95KTBBPapka as neededSept2024 11:00pmComplies with drug therapyAlendronate 70 mg vwyhnpUmbjqolvxpdi64OQDZ every weekSeptember 2024 11:00pmOctober 2024 10:33amSertraline 100 mg aoafvcTetwgg789OJTYIogav dailySeptember 2024 11:00pmComplies with drug therapyLevothyroxine 75 mcg tufognValorg67JOUABJzjmiCewhhczvl 2024 11:00pm Complies with drug therapyAmitriptyline 10 mg ughiffWtzjghxgiwxt85NVURZogqw at bedtimeSeptember 2024 11:00pmSeptember 2024 12:27pmBuspirone 10 mg bfgepmIakxyp25VWNLXfwlr daily as neededSeptember 2024 11:00pmComplies with drug therapyLosartan 25 mg pfszluRynkfuaaazqv18PHLLZybhbYjcjceicu 2024 11:00pmSeptember 2024 12:26pmMontelukast 10 mg nbvezxVooudy68IGPVIdfgn at bedtimeSeptember 2024 11:00pmComplies with drug therapyNaproxen 500 mg povozkXpjtdu312GAGZKzvfi daily as neededSeptember 2024 11:00pmComplies with drug therapyAripiprazole 5 mg tqhtdqUfiadmasudyw3LCOOWrbszXsudkgzfs 2024 11:00pmSeptember 2024 8:57amSimvastatin 20 mg qbnoioQmzypo11FXOOJhsyx at bedtimeSeptember 2024 11:00pmComplies with drug therapyLosartan 50 mg ycgzmvPhfiiyfpzjsj02EBGTYbcqf175Kkdhblvmk 2024 11:00pmOctober 2024 10:34amPrimary hypertension Essential (primary) hypertensionAmitriptyline 25 mg rlnlemXllkay47LGPXJwgkn at binsepk3199Xxhgrzraw 2024 11:00pmInsomnia Insomnia, unspecifiedmay take 1 or 2 pills at bedtimeComplies with drug therapy Vital Signs Vital Reading Result Reference Range Collection Date/Time Height 64 [in_i] November 05, 2024 12:98ofFtnvgx56.31 kgSeptember 2024 12:07pmBody Ajurqjihlds76.5 [degF]97.6-99.0September 2024 12:07pmHeart Rate78 /min 60-100September 2024 12:07pmRespiratory rate20 /nqf50-99Wrcbqkemj 2024 12:07pmOxygen saturation by Pulse hmzikvzg55 %95-100September 2024 12:07pmBP Iozuaibt735 mm[Hg]100-140September 2024 12:07pmBP Qeefydgvy99 mm[Hg]60-100September 2024 12:07pmBMI (Body Mass Index)33.0 kg/x6Givzizdas 2024 12:32slUdqrhy77 [in_i]December 30, 2024 10:38vsFhypdo91.20 kg December 30, 2024 10:53amBody Oherljgzjgc72.1 [degF]97.6-99.0Nov2024 10:53amHeart Rate72 /psm06-320Xqbruevr 10th, 2025 10:53amRespiratory rate18 /eva42-88Hkqbjcsv 10th, 2025 10:53amOxygen saturation by Pulse hxnqyivg39 % 95-100Nov2024 10:53amBP Wmdrcezy861 mm[Hg]100-140Nov2024 10:53amBP Pbsokqygx96 mm[Hg]60-100Nov2024 10:53amBMI (Body Mass Index)33.0 kg/w3Nweduqit2024 10:53am Advance Directives Advance Directive Response Recorded Date/ Time Advance Directives No March 11, 2022 10:04am Insurance Providers Guarantor Claudette Hernandes Address [address] [address]be[employer] Info.Home Phone: Coverage Status Update:November 05, 2024 Payer Group Member ID Coverage Type Subscriber Relationship to Subscriber Effective Date Expiration Date Medicaid [id number] A Mchargue Id: [id number] [address] [address] Home Phone: Email: [email or web address] A Mchargue Id: [id number] [address] [facility] [address] Home Phone: Email: [email or web address] View [facility] Hospitaltna [facility] Retired Id: [id number] A Mchargue Id: [id number] [address] [facility] [address] Home Phone: Email: [email or web address] P[facility]S [id number] A Mchargue Id: [id number] [address] [facility] [address] Home Phone: Email: [email or web address] Encounter Location(s) Arrival/Admit Date Discharge/Departure Date Discharge/Departure Disposition Provider(s) Departed Physician/ Provider Office Visit -[facility] Family Medicine [place] November 05, 2024 12:57pm November 05, 2024 1:27pm Discharged to home care or self care (routine discharge) TOSHA Valente Departed Physician/ Provider Office Visit -[facility] December 30, 2024 10:45am December 30, 2024 11:28am Discharged to home care or self care (routine discharge) TOSHA Valente Recent Diagnosis Onset Date Admit Date Breast cancer screening by mammogram Unknown November 05, 2024 12:57pm Essential hypertension Unknown November 05, 2024 12:57pm LATA (generalized anxiety disorder) Unknown November 05, 2024 12:57pm Hypothyroidism (acquired) Unknown 2024 12:57pm Insomnia Unknown November 05, 2024 12:57pm Major depressive disorder, recurrent, mild Unkno wn November 05, 2024 12:57pm Dizziness Unknown December 30 10:45am Encounter for subsequent migdalia ua wellness visit (AWV) in Medicare patient Unknown December 30, 2024 10 :45am Essential hypertension Unknown December 30, 2024 10:45am LATA (generalized anxiety disorder) Unknown December 30, 2024 10:45am Hypothyroidism (acquired) Unknown Novemb er 2024 10:45am Osteopenia Unknown December 30 10:45am Overweight Unknown December 30 10:45am Assessments Diagnosis Onset Date Resolution Status Admit Date Breast cancer screening by mammogram acuteSeptember 2024 12:57pmEssential hypertensionacuteSeptember 2024 12:57pmGAD (generalized anxiety disorder)acuteSeptember 2024 12:57pm Hypothyroidism (acquired)acuteSeptember 2024 12:57pmInsomniaacuteSeptember 2024 12:57pmMajor depressive disorder, recurrent, mildacuteSeptember 2024 12:57pmDizzinessacuteNovember 2024 10:45amEncounter for subsequent annual wellness visit (AWV) in Medicare patientacuteNovember 2024 10:45amEssential hypertensionacuteNovember 2024 10:45amGAD (generalized anxiety disorder)acuteNovember 2024 10:45amHypothyroidism (acquired)acuteNovsout[facility] 2024 10:45amOsteopeniaacuteNovember 2024 10:45amOverweightacuteNovember 2024 10:45am Plan of Treatment Author [facility] 2024 12:31pmPlease check blood pressure daily and record DASH diet Limit caffeine Take medication as directed Contact office if chest pain, pressures, dizziness, shortness of breath, swelling in the legs Recommend slow position changes if you develop dizziness with position changes current med: losartan, increase dose to 50mg fu in 6 weeks current meds: sertraline, buspar no dose changes on levothyroxine check labs yearly and prn dose change, or changes in sxs no dose changes elavil at HS, will increase dose to 25mg tabs, 1-2 at hs fu in 6 weeks current meds: aripiprazole, sertraline no dose changes Author Jessica [facility] 2024 11:23amReviewed Ht/Wt/BMI Recommend eye exams yearly Recommend dental exam: twice a year Balance work/leisure activities exercise is recommended most days of the week (appropriate as chronic conditions allow) follow up yearly and prn DEXA scan 04/03/24 spine 0.6, hip -0.9 meds: alendronate Please check blood pressure daily and record DASH diet Limit caffeine Take medication as directed Contact office if chest pain, pressures, dizziness, shortness of breath, swelling in the legs Recommend slow position changes if you develop dizziness with position changes current meds: losartan 50mg current meds: sertaraline, buspar, aripirpazole current med: levothyroxine check labs yearly and prn dose changes recommend diet low in fat and processed foods exercise most days of the week as per what chronic conditions allow no clear reason for dizziness, will check labs to make sure no abnormals Future Tests Future scheduled test information is unavailable Pending Tests Test Name Ordered Date Scheduled Date MM screening mammo BI w/CAD November 05, 2024 5:21am Future Visits Future appointment information is unavailable Future Procedures Procedure Name Ordered Date Scheduled Date Dipstick and Microscopic December 30, 2024 11: 20am Basic Metabolic PanelNov2024 11:20amComplete Blood Count Auto Diff December 30, 2024 11:20amFree T4 (Free Thyroxine)December 30, 2024 11:20am Thyroid Stimulating HormoneNov2024 11:20am Future Medications Future medication information is unavailable Patient Instructions Patient instructions are unavailable
--- OUTSIDE RECORDS SUMMARY | 2025-01-01 08:55 | XMS_ITS | Encounter Summary ---
Author Organization [facility] Address [address] [place] [address] Care Team Providers Care Machine Installer Name Role Phone Pop Carreon MD Primary Care Provider [phone] Jessica Sosa AUDIO EXPERIENCE EXPERT Unavailable [phone] Meghana Canseco DO Unavailable [phone] Jessica Sosa AUDIO EXPERIENCE EXPERT Unavailable [phone] Encounter Details DateTypeDepartmentCare Team (Latest Contact Info)Hbkuillggvv85/06/2024Clinisync Result Encounter [facility] Unsolicited Jessica Sosa NP [address] [place] [address] Social History Tobacco UseTypesPacks/DayYears UsedDateSmoking Tobacco: NeverPassive Smoke Exposure: NeverSmokeless Tobacco: NeverAlcohol UseStandard Drinks/WeekComments Never0 (1 standard drink = 0.6 oz pure alcohol)caffeine yes type:tea 1cup daily Humiliation, Afraid, Rape, and Kick questionnaireAnswerDate RecordedWithin the last year, have you been afraid of your partner or ex-partner?No03/28/2023Within the last year, have you been humiliated or emotionally abused in other ways by your partner or ex-partner?No03/28/2023Within the last year, have you been kicked, hit, slapped, or otherwise physically hurt by your partner or ex-partner?No02/06/2024Within the last year, have you been raped or forced to have any kind of sexual activity by your partner or ex-partner?No03/28/2023 Social Connection and Isolation PanelAnswerDate RecordedIn a typical week, how many times do you talk on the phone with family, friends, or neighbors?More than three times a week03/28/2023How often do you get together with friends or relatives?Never03/28/2023How often do you attend anglican or baptism services?1 to 4 times per year03/28/2023o you belong to any clubs or organizations such as anglican groups, unions, fraternal or athletic groups, or school groups?No 03/28/2023How often do you attend meetings of the clubs or organizations you belong to?Never03/28/2023re you , , , , never , or living with a partner?Wkdixvma71/06/2024UDIT-CAnswerDate Recorded Q1: How often do you have a drink containing alcohol?Never03/28/2023Q2: How many drinks containing alcohol do you have on a typical day when you are drinking? Patient does not drink03/28/2023Q3: How often do you have six or more drinks on one occasion?Never03/28/2023Overall Financial Resource Strain (CARDIA)AnswerDate RecordedHow hard is it for you to pay for the very basics like food, housing, medical care, and heating?Not very hard03/28/2023HQ-2AnswerDate RecordedPatient Health Questionnaire-2 [id number] [facility] medical center [place] [facility] Occup[facility] - Occupational Stress QuestionnaireAnswerDate RecordedDo you feel stress - tense, restless, nervous, or anxious, or unable to sleep at night because your mind is troubled all the time - these days?Only a jzbcle7303/28/2023Exercise Vital SignAnswerDate RecordedDays of Exercise per WeekNot on file03/28/2023On average, how many minutes do you engage in exercise at this level?20 min03/28/2023Hunger Vital SignAnswerDate RecordedWithin the past 12 months, you worried that your food would run out before you got the money to buymore.Never true03/28/2023 Within the past 12 months, the food you bought just didn't last and you didn't have money to get more.Sometimes true03/28/2023RAPARE - TransportationAnswer Date RecordedIn the past 12 months, has lack of transportation kept you from medical appointments or from getting medications?Yes03/28/2023In the past 12 months, has lack of transportation kept you from meetings, work, or from getting things needed for daily living?No03/28/2023Housing Stability Vital SignAnswer Date RecordedIn the last 12 months, was there a time when you were not able to pay the mortgage or rent on time?Yes03/28/2023Number of Places Lived in the Last YearNot on file03/28/2023In the last 12 months, was there a time when you did not have a steady place to sleep or slept in [place] (including now)?No 03/28/2023CommentsUnknownSex and Gender InformationValueDate RecordedSex Assigned at BirthNot on fileLegal OqdVjzpqa28/01/2023 8:33 PM EDTGender Identity Not on fileSexual OrientationNot on filedocumented as of this encounter Functional Status * Over the past 2 weeks, how often have you been bothered by any of the following problems?QuestionAnswerDate of AssessmentAuthorLittle interest or pleasure in doing thingsNot at all12/20/2023 4:38 PM Dorcas Cruz MA Feeling down, depressed, or hopelessNot at all12/20/2023 4:38 PM Dorcas Cruz MAPatient Health Questionnaire-2 [id number] 4:38 PM EDT Dorcas Figueroa MA * QuestionAnswerDate of AssessmentAuthorTrouble falling or staying asleep, or sleeping too muchSeveral days12/20/2023 4:38 PM Dorcas Cruz MA Feeling tired or having little energyNot at all12/20/2023 4:38 PM ERNSTT Dorcas Figueroa MAPoor appetite or overeatingNot at all12/20/2023 4:38 PM Dorcas Cruz MAFeeling bad about yourself - or that you are a failure or have let yourself or your family downNot at all12/20/2023 4:38 PM Dorcas Cruz MATrouble concentrating on things, such as reading the newspaper or watching televisionNot at all12/20/2023 4:38 PM Dorcas Cruz MAMoving or speaking so slowly that other people could have noticed? Or the opposite - being so fidgety or restless that you have been moving around a lot more than usual.Not at all12/20/2023 4:38 PM Dorcas Cruz MAThoughts that you would be better off or hurting yourself in some wayNot at all12/20/2023 4:38 PM Dorcas Cruz MAPatient Health Questionnaire-9 [id number] 4:38 PM Dorcas Cruz MA * How difficult have these problems made it for you to do your work, take care of things at home, or get along with other people?AnswerDate of Assessment AuthorNot difficult at all12/20/2023 4:38 PM Dorcas Cruz MA * Geriatric Depression Scale (Short Version)QuestionAnswerDate of Assessment AuthorAre you basically satisfied with your life?No12/20/2023 4:42 PM ERNSTT Dorcas Figueroa MAHave you dropped many of your activities and interests? No12/20/2023 4:42 PM Dorcas Cruz MADo you feel that your life is empty?No12/20/2023 4:42 PM Dorcas Cruz MADo you often get bored?No 12/20/2023 4:42 PM Dorcas Cruz MAAre you in good spirits most of the time?Yes12/20/2023 4:42 PM Dorcas Cruz MAAre you afraid that something bad is going to happen to you?No12/20/2023 4:42 PM Dorcas Cruz MADo you feel happy most of the time?Yes12/20/2023 4:42 PM EDT Dorcas Figueroa MADo you often feel helpless?No12/20/2023 4:42 PM EDT Dorcas Figueroa MADo you prefer to stay at home, rather than going out and doing new things?No12/20/2023 4:42 PM EDDorcas Quesada MADo you feel you have more problems with memory than most?No12/20/2023 4:42 PM EDTHDorcas crooks MADo you think it is wonderful to be alive now?Yes12/20/2023 4:42 PM Dorcas Cruz MADo you feel pretty worthless the way you are now?No 12/20/2023 4:42 PM Dorcas Cruz MADo you feel full of energy?Yes 12/20/2023 4:42 PM EDDorcas Quesada MADo you feel that your situation is hopeless?No12/20/2023 4:42 PM EDDorcas Quesada MADo you think that most people are better off than you are?No12/20/2023 4:42 PM Dorcas Cruz MAGeriatric Depression Scale (Short Version) [id number] 4:42 PM EDT Dorcas Figueroa MA documented as of this encounter Plan of Treatment Not on file documented as of this encounter Procedures Procedure NamePriorityDate/TimeAssociated DiagnosisCommentsMM TOMOSYNTHESIS SCREENING BI10/27/2023 1:41 PM EDT documented in this encounter Results * MM TOMOSYNTHESIS SCREENING BI (10/27/2023 1:41 PM EDT)Anatomical Region LateralityModalityOtherSpecimen (Source)Anatomical Location / Laterality Collection Method / VolumeCollection TimeReceived Time10/27/2023 1:41 PM EDT Narrative 10/27/2023 1:41 PM EDT [facility] ?[address] ? [place] [address] ? Mammography Report ? Signed ? Patient: MCHARGUE,CLAUDETTE A ?MR#: [id number] ?? : 1955 ?Acct:[id number] ?? Age/Sex: 68 / F ?ADM Date: 09//24 ?? Loc: MAMMO ? Attending Dr: Jessica Soas AUDIO EXPERIENCE EXPERT ? Ordering Physician: Jessica Sosa NP ?Results: ? Date of Service: 10/25/23 ?Follow Up: ? Procedure(s): MM tomosynthesis screening BI ?? Accession Number(s): [id number] ? cc: Jessica Sosa NP ? Patient Name: ? CLAUDETTE MCHARGUE ? MR#: [id number] ? : 1955 ? Exam Date: 10/25/2023 ?? Ordering Doctor: RODNEY Sosa CNP ? RADIOLOGY REPORT ? PROCEDURE: ? MM TOMOSYNTHESIS SCREENING BI ? COMPARISON: ? MM TOMOSYNTHESIS SCREENING BI, 09/27/2022. ??MG MAMM SCREEN 3D ?? GERARD CAD, 06/24/2021. ??MG MAMM SCREEN GERARD W CAD, 08/20/2018. ??MG MAMM GERARD SCRN W ?? CAD DIG, 02/28/2014. ? INDICATIONS: ? Screening ? Calculator Name ? NCI Breast Cancer Risk Assessment Tool ?? 5 Year Breast Cancer Risk ? 1.10% ?? Lifetime Breast Cancer Risk ? 3.50% ?? Personal Breast Cancer ?No ?? Personal Ovarian Cancer ? No ?? Treatments ? None ?? Family Cancers ? Mother with pancreatic cancer at age 59. ? LOCATION: ? [facility] ? BREAST COMPOSITION: ? There are scattered areas of fibroglandular density. ? FINDINGS: ? DIAGNOSTIC CATEGORY 2--BENIGN FINDING: ? RIGHT BREAST: ??No significant suspicious finding. ??Scattered benign-appearing ?? calcifications are present. ??No significant change has occurred. ? LEFT BREAST: ??No significant suspicious finding. ??Scattered benign-appearing ?? calcifications are present. ??No significant change has occurred. ? RECOMMENDATIONS: ? ROUTINE MAMMOGRAM AND CLINICAL EVALUATION IN 12 MONTHS. ? PLEASE NOTE: ??A NORMAL MAMMOGRAM DOES NOT EXCLUDE THE POSSIBILITY OF BREAST ?? CANCER. ??A CLINICALLY SUSPICIOUS PALPABLE LUMP SHOULD BE BIOPSIED. ? Dictated by: Gerald Cole M.D. on 10/27/2023 at 12:52 ? Approved by: Gerald Cole M.D. on 10/27/2023 at 13:40 ? Dictated By: ?Gerald Cole M.D. ? Signed By: ?10/27/23 1341 ? DD/ 1341 ? TD/TT: ? Bookseamer Blindstitch: Procedure Note Radiology, Radiologist, MD - 10/27/2023 [place] [address] Mammography Report Signed Patient: CLAUDETTE ROSS [facility]#: [id number] : 1955ct:[id number] Age/Sex: 68 / FADM Date: 10/25/23 Loc: MAMMO Attending Dr: Jessica Sosa AUDIO EXPERIENCE EXPERT Ordering Physician: Jessica Sosaesults: Date of Service: 10/25/23Follow Up: Procedure(s): MM tomosynthesis screening BI Accession Number(s): [id number] cc: Jessica Sosa NP Patient Name: CLAUDETTE ROSS MR#: [id number] : 1955 Exam Date: 10/25/2023 Ordering Doctor: RODNEY Sosa [employer]PENTER FOREMAN RADIOLOGY REPORT PROCEDURE: MM TOMOSYNTHESIS SCREENING BI COMPARISON: MM TOMOSYNTHESIS SCREENING BI, 09/27/2022. MG MAMM OLSVWH1M GERARD CAD, 06/24/2021. MG MAMM SCREEN GERARD W CAD, 08/20/2018. MG MAMM BILSCRN W CAD DIG, 02/28/2014. INDICATIONS: Screening Calculator Name NCI Breast Cancer Risk Assessment Tool 5 Year Breast Cancer Risk 1.10% Lifetime Breast Cancer Risk 3.50% Personal Breast Cancer No Personal Ovarian Cancer No Treatments None Family Cancers Mother with pancreatic cancer at age 59. LOCATION: [facility] BREAST COMPOSITION: There are scattered areas [...] M.D. Signed By:10/27/23 1341 DD/ 1341 TD/TT: Bookseamer Blindstitch: Authorizing ProviderResult TypeResult StatusLisa Ian NPCLINISYNC IMAGING Final Result documented in this encounter Visit Diagnoses Not on filedocumented in this encounter Care Teams Team MemberRelationshipSpecialtyStart DateEnd Date Pop Carreon MD PCP - GeneralFamily Medicine04/13/23 Jessica Sosa NP [address] [place] [address] PCP - [facility]/02/2510 Jessica Sosa NP Nurse PractitionerFami Medicine04/13/23 Meghana Canseco DO [address] [place] [address] Referring PhysicianNeurology1documented as of this encounter
--- OUTSIDE RECORDS SUMMARY | 2025-01-01 08:55 | XMS_ITS | Patient Health Record ---
Author Organization [facility] [place] Address [address] [place] [address] Support Name Relationship Address Phone Aurea Hernandes Emergency Contact Unknown Claudette Hernandes Guarantor Unknown [phone] Reason For Referral No Information Medications Medication SIG (Take, Route, Frequency, Duration) Notes Start Date End Date Status Montelukast Sodium 10 mg ActiveSertraline HCl 100 mg ActiveSimvastatin 20 mg Active Plan Of Treatment No Information Insurance Providers Payer Name Payer Address Payer Phone Subscriber Number Group Number Insured Name Patient Relationship to Insured Coverage Start Date Coverage End Date [place]IC[place] [address] [place] [address] [phone] [id number] Romulo Hernandes - patient is the [id number] 2012MEDICAID [facility] [address] OFF[place] OF [place], [place] [id number] Romulo Hernandes - patient is the [id number] 2012
--- OUTSIDE RECORDS SUMMARY | 2025-01-01 08:55 | XMS_ITS | Clinical Summary ---
Author Organization [facility] Address [address] [place] [address] Care Team Providers Care Switch Engineer Name Role Phone Pop Carreon MD Primary Care Provider [phone] Jessica Sosa BELT SANDER Unavailable [phone] Meghana Canseco DO Unavailable [phone] Allergies Active AllergyReactionsCriticalityNoted YgfjFrstkuixJlbncnwXoxuJpt38/02/2017 BbyozlfnlkfYjewObu64/08/2023Hydrocodone-Podamfigumyjg64/08/2023 Vicodin BxjfeisouFyzvMha02/08/2023Oxycodone-PwtqidojtnjpjRdolFzt92/02/2017 But can take regular tylenol okay Sulfamethoxazole-GqwhkgvuhtieSacug70/08/2023 Medications MedicationSigDispense QuantityRefillsLast FilledStart DateEnd DateStatus naproxen (Naprosyn) 500 MG tablet Take 500 mg by mouth 2 (two) times a day as kwbhic205Active alendronate (Fosamax) 70 MG tablet Indications:Osteopenia, unspecified locationTake 1 tablet (70 mg) by mouth every 7 (seven) days Take in the morning with a full glass of water,on an empty stomach, and do not take anything else by mouth or lie down for the next 30 min. 12 tablet 5Active amitriptyline (Elavil) 10 MG tablet Indications:Primary insomniaStart with 1 pill at bedtime, after 7 days if not effective, then can increase to 2 pills 60 tablet 5Active ARIPiprazole (Abilify) 5 MG tablet Indications:Mild episode of recurrent major depressive disorderTake 1 tablet (5 mg) by mouth Daily 90 tablet 5Active busPIRone (Buspar) 10 MG tablet Indications:Anxiety and depressionTake 1 tablet (10 mg) by mouth every 12 (twelve) hours 180 tablet 5Active cetirizine (ZyrTEC) 10 MG tablet Indications:Allergic rhinitis, unspecified seasonality, unspecified triggerTake 1 tablet (10 mg) by mouth Daily 90 tablet 5Active levothyroxine (Synthroid, Levoxyl) 75 MCG tablet Indications:Hypothyroidism, unspecified typeTake 1 tablet (75 mcg) by mouth in the morning. Take before meals. 90 tablet 5Active losartan (Cozaar) 25 MG tablet Indications:Primary hypertensionTake 1 tablet (25 mg) by mouth Daily 90 tablet 5Active montelukast (Singulair) 10 MG tablet Indications:Allergic rhinitis, unspecified seasonality, unspecified triggerTake 1 tablet (10 mg) by mouth at bedtime 90 tablet 5Active sertraline (Zoloft) 100 MG tablet Indications:Generalized Anxiety Disorder,Major Depressive DisorderTake 1 tablet (100 mg) by mouth in the morning and 1 tablet (100 mg) before bedtime. 180 tablet 5Active simvastatin (Zocor) 20 MG tablet Indications:Mixed hyperlipidemiaTake 1 tablet (20 mg) by mouth at bedtime 90 tablet 5Active Active Problems ProblemNoted DateDiagnosed FqkvFkxnlgxjlhx83/16/2025Needs flu shot03/25/2024 Assessment & Plan (03/25/2024 2:43 PM EST): Consent signed VIS given Overweight (BMI 25.0-29.9)12/20/2023Encounter for subsequent annual wellness visit (AWV) in Medicare avwnyvl3912/20/2023 Assessment & Plan (12/20/2023 5:10 PM EDT): I have reviewed Ht/Wt/BMI, I have reviewed recommended vaccines for patient's age, as well as all recommended screenings I have reviewed available care everywhere notes as well. I have recommended eating a balanced diet,as well as activity as chronic conditions allow It is recommended that the patient have a yearly eye exam, as well as twice a year dental exams Hand out on living will and HCPOA Fu in this office for wellness on a yearly basis Encounter for screening mammogram for malignant neoplasm of bmpgsl5910/18/2023 Anxiety and hnbwxyequt36/22/2024 Overview (03/25/2024): 03/25/24: LATA 7= 1, PHQ [...] on current dose, and check labs Allergic fpkuakta66/22/2024 Assessment & Plan (04/13/2023 10:37 AM EST): Refill meds Post-joxjbpazxc88/22/2024Seasonal ioqzfkpfu42/22/2024Spinal stenosis, lumbar 04/13/2023Obstructive sleep apnea04/13/2023 Overview (08/22/2023): Sleep study 08/07/23; severe sleep [...] snore, has fatigue Will order retitration study Hynvaypb39/22/2024 Assessment & Plan (08/05/2024 6:59 AM EDT): [...] depression if this happens contact office Pulmonary hudrag2704/13/20238314Wakuammytzmw13/22/2024 Assessment & Plan (08/05/2024 6:57 AM EDT): [...] Stable no changes in meds Check labs Dnpijeabogatds22/22/2024Urinary incontinence in rbifnk6004/13/2023 Assessment & Plan (07/18/2023 10:28 AM EDT): Cont current meds Asymptomatic microscopic paotntvrr72/22/2024 Assessment & Plan (04/13/2023 10:35 AM EST): Recheck urine Eqbnmtaeer54/22/2024 Overview (04/03/2024): DEXA scan 06/24/2021: early osteopenia [...] and refill meds DDD (degenerative disc disease), tmvcqund73/22/2024Vitamin D deficiency 04/13/2023 Assessment & Plan (04/13/2023 10:35 AM EST): Check labs Usajahpawrkmqu41/22/2024 Assessment & Plan (08/05/2024 6:58 AM EDT): [...] this time Cont current dose meds Skin omafgpquhdf12/22/2024 Assessment & Plan (07/18/2023 10:29 AM EDT): No improvement with use of nystatin Will trial lotrisone cream Fu if not better Assessment & Plan (04/13/2023 10:40 AM EST): Nystatin BID for 7-10 days call office if note better Mixed /12/2023 Assessment & Plan (08/05/2024 6:58 AM EDT): On statin Check labs yearly and prn dose changes Assessment & Plan (03/25/2024 7:06 AM EST): On statin Check labs yearly and prn dose changes Assessment & Plan (04/13/2023 10:36 AM EST): Continue statin Check labs Mild episode of recurrent major depressive unrgpwzn39/12/2023 Assessment & Plan (06/03/2024 1:26 PM EDT): [...] 8 weeks for a recheck Acquired hallux rvjkyh4501/27/2023ontracture, right ankle01/27/2023upuytren's ahdtzbsosvu89/08/2023upuytren's disease of palm01/27/2023Facet arthritis of lumbar atnead1601/27/2023ilateral carpal tunnel tbigthtz53/08/2023eripheral venous dkhnspcjryhow40/08/2023Ulnar neuropathy of right upper extremity 01/27/2023 Resolved Problems ProblemNoted DateDiagnosed DateResolved DateChest pain04/13// Rqisywlkhrbsfy50Insect sting04/13/Lumbar radiculopathy, acute04/13//4Abdominal pain04/13// Gvfuqhxxgj34/22/yspneaWrist fracture /Tennis elbowObesity (BMI 30-39.9) lass 1 obesity due to excess calories without serious comorbidity in adult Immunizations ImmunizationAdministration DatesNext DueInfluenza, High-dose Seasonal, Quadrivalent, Preservative Free01/04/2023Influenza, trivalent, adjuvanted 03/25/2024 Family History Medical HistoryRelationNameCommentsHeart diseaseFatherPancreatic cancerMother MelanomaNeg HxRelationNameStatusCommentsFatherDeceasedMotherDeceased Social History Tobacco UseTypesPacks/DayYears UsedDateSmoking Tobacco: NeverPassive Smoke Exposure: NeverSmokeless Tobacco: Never Tobacco Cessation:Counseling Given: Not Answered Alcohol UseStandard Drinks/WeekCommentsNever0 (1 standard drink = 0.6 oz pure alcohol)caffeine yes type:tea 1cup dailyHumiliation, Afraid, Rape, and Kick questionnaireAnswerDate RecordedWithin the last year, have you been afraid of your partner or ex-partner?No03/28/2023Within the last year, have you been humiliated or emotionally abused in other ways by your partner or ex-partner?No 03/28/2023Within the last year, have you been kicked, hit, slapped, or otherwise physically hurt by your partner or ex-partner?No03/28/2023Within the last year, have you been raped or forced to have any kind of sexual activity by your part ner or ex-partner?No03/28/2023Social Connection and Isolation PanelAnswerDate RecordedIn a typical week, how many times do you talk on the phone with family, friends, or neighbors?More than three times a week03/28/2023How often do you get together with friends or relatives?Never03/28/2023How often do you attend mormonism or yarsani services?1 to 4 times per year03/28/2023o you belong to any clubs or organizations such as mormonism groups, unions, fraternal or athletic groups, or school groups?No03/28/2023How often do you attend meetings of the clubs or organizations you belong to?Never03/28/2023re you , , , , never , or living with a partner?Zepddpif43/06/2024UDIT-C AnswerDate RecordedQ1: How often do you have a drink containing alcohol?Never 03/28/2023Q2: How many drinks containing alcohol do you have on a typical day when you are drinking?Patient does not drink03/28/2023Q3: How often do you have six or more drinks on one occasion?Never03/28/2023Overall Financial Resource Strain (CARDIA)AnswerDate RecordedHow hard is it for you to pay for the very basics like food, housing, medical care, and heating?Not very hard03/28/2023 PHQ-2AnswerDate RecordedPatient Health Questionnaire-2 Hzgde236Finhe[facility] [place] of Occup[facility] Health - Occupational Stress QuestionnaireAnswerDate RecordedDo you feel stress - tense, restless, nervous, or anxious, or unable to sleep at night because yourmind is troubled all the time - these days?Only a rwnbjm3403/28/2023Exercise Vital SignAnswerDate RecordedDays of Exercise per Week Not on file03/28/2023On average, how many minutes do you engage in exercise at this level?20 min03/28/2023Hunger Vital SignAnswerDate RecordedWithin the past 12 months, you worried that your food would run out before you got the money to buymore.Never true03/28/2023Within the past 12 months, the food you bought just didn't last and you didn't have money to get more.Sometimes true03/28/2023 PRAPARE - TransportationAnswerDate RecordedIn the past 12 months, has lack of transportation kept you from medical appointments or from getting medications? Yes03/28/2023In the past 12 months, has lack of transportation kept you from meetings, work, or from getting things needed for daily living?No03/28/2023 Housing Stability Vital SignAnswerDate RecordedIn the last 12 months, was there a time when you were not able to pay the mortgage or rent on time?Yes03/28/2023 Number of Places Lived in the Last YearNot on file03/28/2023In the last 12 months, was there a time when you did not have a steady place to sleep or slept in ashelter (including now)?No4CommentsUnknownSex and Gender InformationValueDate RecordedSex Assigned at BirthNot on fileLegal SexFemale 06/20/2022 8:33 PM EDTGender IdentityNot on fileSexual OrientationNot on file Last Filed Vital Signs Vital SignReadingTime TakenCommentsBlood Jbaqvsox159/80008/05/2024 1:17 PM EDT Pwcti152808/05/2024 1:17 PM GNPZutevlwdihx00.9 ??C (98.5 ??F)08/05/2024 1:17 PM EDTRespiratory Bucx831508/05/2024 1:17 PM EDTOxygen Pwfluysknw88%08/05/2024 1:17 PM EDTInhaled Oxygen Concentration--Vmralf34.3 kg (192 lb 6.4 oz)08/05/2024 1:17 PM CPSAkvdgw115.6 cm (5' 4 )03/25/2024 2:26 PM ESTBody Mass Index33.03003/25/2024 2:26 PM EST Plan of Treatment Health MaintenanceDue DateLast DoneCommentsCT Frlpqqoeicjy69/02/1955FIT-DNA 1954FIT1954FOBT1954 4609Sikvzlvluguub40/02/1955OVID-19 Vaccine ( season)2024Influenza Vaccine (#1)/04/2024, 01/04/20236086Lffvoqiuc85/09/202509/10/2023, 10/27/2023, 09/27/2022Medicare Annual Wellness (AWV)olonoscopyColorectal Cancer Rutwblhjy59/02/2027Pneumococcal Vaccine: 65+ MgaewHsemicdxz15/01/2012 Procedures Procedure NamePriorityDate/TimeAssociated DiagnosisCommentsBI MAMMOGRAM SCREENING TOMOSYNTHESIS IUFDPZESQJctlwln89/09/2024 10:04 AM EDTfrom Last 3 Months or Most Recently Relevant to Health Maintenance Results * Bilateral screening mammogram with tomosynthesis (10/30/2023 10:04 AM EDT) Anatomical RegionLateralityModalityBreastBilateralMammography Narrative Authorizing ProviderResult TypeResult StatusLisa Ian NPIMG BI PROCEDURES Final Result from Last 3 Months or Most Recently Relevant to Health Maintenance Insurance Care Teams Team MemberRelationshipSpecialtyStart DateEnd Pop Carreon MD PCP - GeneralFamily Medicine04/13/23 Jessica Sosa NP Nurse PractitionerFamily Medicine04/13/23 Meghana Canseco DO [address] [place] [address] Referring PhysicianNeurolog03/15/24
--- OUTSIDE RECORDS SUMMARY | 2025-01-01 08:59 | XMS_ITS | CCD ---
Author Organization [facility] Care Team Providers Care Time Signal Wirer Name Role Phone Conrado Mccoy Unavailable Unavail [...] Unlisted Unavailable Unavailable ROHINI ZAVALAI Admitting Unavailable SALLY HANI Attending Unavailable ZAHIDA BARKER Referring Unavailable IAN, JESSICA Primary Care Unavailable MD NIDHI MICHAELS Attending Unavailable MD NIDHI MICHAELS Primary Care Unavailable MD NIDHI MICHAELS Primary Care Unavailable MD NIDHI MICHAELS Consulting Unavailable MD SLICK TARIQ Attending Unavailab JESSICA Egan Primary Care Physician Jessica Sosa Primary Care Provider [phone] RADHA Batres Attending Provider [phone] Jessica Sosa Primary Care Unavailable Yordan Batres Attending Unavailable Yordan Batres Admitting Unavailable AICHHOLZ, RODNEY JESSICA Admitting Unavailable AICHHOLZ, COMMERCIAL LENDING ASSISTANT JESSICA Attending Unavailable AICHHOLZ, COMMERCIAL LENDING ASSISTANT JESSICA Consulting Unavailable AICHHOLZ, COMMERCIAL LENDING ASSISTANT JESSICA Primary Care Unavailable AICHHOLZ, COMMERCIAL LENDING ASSISTANT JESSICA Admitting Unavailable DR JACKELIN TAMAYO V Consulting Unavailable AICHHOLZ, COMMERCIAL LENDING ASSISTANT JESSICA Attending Unavailable AICHHOLZ, COMMERCIAL LENDING ASSISTANT JESSICA Primary Care Unavailable AICAmeHOLZ, COMMERCIAL LENDING ASSISTANT JESSICA Consulting Unavailable JACKELIN BATRES Consulting Unavailable AICHHOLZ, COMMERCIAL LENDING ASSISTANT JESSICA Admitting Unavailable AICHHOLZ, COMMERCIAL LENDING ASSISTANT JESSICA Attending Unavailable AICHHOLZ, COMMERCIAL LENDING ASSISTANT JESSICA Consulting Unavailable AICHHOLZ, COMMERCIAL LENDING ASSISTANT JESSICA Primary Care Unavailable DR JEROME AYALA Consulting Unavailable AICHHOLZ, COMMERCIAL LENDING ASSISTANT JESSICA Admitting Unavailable AICHHOLZ, COMMERCIAL LENDING ASSISTANT JESSICA Attending Unavailable AICHHOLZ, COMMERCIAL LENDING ASSISTANT JESSICA Consulting Unavailable AICHHOLZ, COMMERCIAL LENDING ASSISTANT JESSICA Primary Care Unavailable JOSE DE JESUS PEREZ Consulting Unavailable AICHHOLZ, COMMERCIAL LENDING ASSISTANT JESSICA Primary Care Unavailable AICHHOLZ, COMMERCIAL LENDING ASSISTANT JESSICA Attending Unavailable AICHHOLZ, COMMERCIAL LENDING ASSISTANT JESSICA Admitting Unavailable AICHHOLZ, COMMERCIAL LENDING ASSISTANT JESSICA Consulting Unavailable AICHHOLZ, COMMERCIAL LENDING ASSISTANT JESSICA Admitting Unavailable AICHHOLZ, COMMERCIAL LENDING ASSISTANT JESSICA Attending Unavailable AICHHOLZ, COMMERCIAL LENDING ASSISTANT JESSICA Primary Care Unavailable AICHHOLZ, COMMERCIAL LENDING ASSISTANT JESSICA Admitting Unavailable AICHHOLZ, COMMERCIAL LENDING ASSISTANT JESSICA Attending Unavailable AICHHOLZ, COMMERCIAL LENDING ASSISTANT JESSICA Consulting Unavailable AICHHOLZ, COMMERCIAL LENDING ASSISTANT JESSICA Primary Care Unavailable DR JEROME AYALA Consulting Unavailable LINDA MASON Attending Unavailable Pop Carreon MD Primary Care Provider [facility] HEALTH ANALYST, Jessica Unavailable Meghana Canseco DO Unavailable AICHHOLZ, JESSICA Attending Unavailable AICHHOLZ, JESSICA Attending Unavailable AICHHOLZ, JESSICA Attending Unavailable AICHHOLZ, JESSICA Attending Unavailable AICHHOLZ, JESSICA Attending Unavailable AICHHOLZ, JESSICA Attending Unavailable Aichholz HEALTH ANALYST-C, Jessica J Primary Care Provider [facility] HEALTH ANALYST-C, Jessica Gabi Attending Provider Pop Carreon MD Primary Care Provider [facility] HEALTH ANALYST, Jessica Unavailable Harleen ROJAS Meghana Unavailable Aichholz HEALTH ANALYST, Jessica Unavailable Aichholz HEALTH ANALYST-C, Jessica J Primary Care Provider Aichholz HEALTH ANALYST-C, Jessica J Attending Provider Allergies Allergy ClassificationReported Allergen(s)Allergy TypeDate of OnsetReaction(s) Facility (5 sources)acetaminophen / HYDROcodone; Translations: [Vicodin]Drug Allergy 52-39-0692Tcmudefx of skin (disorder)[facility] Repository (1 source)acetaminophen / oxyCODONE; Translations: [Percocet 5/]Drug Allergy [facility] Repository (20 sources)codeine; Translations: [codeine]Drug Wobncku56-63-8033Uwhydflo of skin (disorder), Weal (disorder), [facility] (2 sources)Acetaminophen / oxyCODONEDrug Pagpkzi48-72-7109[facility] (5 sources)Acetaminophen; Translations: [acetaminophen]Drug Eveaspb05-93-3552 Weal (disorder)[facility] (3 sources)Acetaminophen / oxyCODONE; Translations: [acetaminophen-oxycodone] Drug AllergyCutaneous eruption (morphologic abnormality)[facility] (3 sources)acetaminophen / propoxyphene; Translations: [acetaminophen-propoxyphene]Drug AllergyEruption of skin (disorder)[facility] (3 sources)Cortisone; Translations: [cortisone]Drug Crtgtce82-45-1252Bdhchkf [facility] (20 sources)oxyCODONE; Translations: [oxycodone]Drug Bhwmjte03-85-9947Kuqw (disorder), [facility]Exec[facility] (1 source)CortisoneDrug Oavtaui45-67-7093Uov [facility] Repository (1 source)PenicillinsDrug allergy (disorder)70-08-3463Ecg [facility] Repository (1 source)Darvocet-N 100Drug allergy (disorder)94-71-3290Obj [facility] Repository (1 source)Codeine; Translations: [codeine sulfate][facility]ergy[facility] (20 sources)Acetaminophen / HYDROcodoneDrug Eliypfx70-12-2039Z[facility] (20 sources)Acetaminophen / oxyCODONEDrug Uzikcnf19-34-3036YfrtRFPJ Healthcare (20 sources)HYDROcodoneDrug Pvacxqg35-48-7747HyidBUXU [facility] (20 sources)Sulfamethoxazole / TrimethoprimDrug Ghxqeoy93-04-8519OfmheHYYB Healthcare (2 sources)SulfamethoxazoleDrug Mbdpdta43-13-4651XqfsuKgvfktxfgMiddletown Hospital (2 sources)TrimethoprimDrug Hoobrkm58-90-2544PbqwsTrjkdspotMiddletown Hospital Medications Current Medications MedicationDrug Class(es)DatesSig (Normalized)Sig (Original)alendronic acid 70 mg oral tablet (20 sources)BisphosphonateStart: 11-03-2024 End: 49-94-3144srwu 1 tablet by mouth every weekAlendronate 70 mg tablet Active 70 MG PO every week 12 December 11, 2024 10:32am Osteopenia Other specified disorders of bone density and structure, unspecified site Complies with drug therapyStart: 07-18-2023 End: 31-40-6769wrdc 1 tablet by mouth in the morningalendronate (Fosamax) 70 MG tablet Indications: Osteopenia, unspecified location Take 1 tablet (70 mg) by mouth every 7 (seven) days Take in the morning with a full glass of water, on an empty stomach, and do not take anything else by mouth or lie down for the next 30 min. 12 tablet 1 08/05/2024 11/03/2024 ActiveStart: 20-95-4349uxea 1 tablet by mouth every weekFosamax 70 mg Tab 70 mg = 1 tab(s), Oral, 1x per week, Refills(s) 0 Start Date: 11/06/18 Status: Orderedamitriptyline hydrochloride 25 mg oral tablet (14 sources)Tricyclic AntidepressantStart: 60-47-7228hszz 1 tablet by mouth once daily at bedtime, then take 2 tablets by mouth at bedtimeAmitriptyline 25 mg tablet Active 50 MG PO Daily at bedtime 180 November 04, 2024 11:00pm Insom raffaele Insomnia, unspecified may take 1 or 2 pills at bedtime Complies with drug therapyStart: 11-03-2024 End: 00-76-0080tzmv 2 tablets by mouth once daily at bedtimeAmitriptyline 10 mg tablet Discontinued 20 MG PO Daily at bedtime November 02, 2024 11:00pm [facility] 2024 12:27pmStart: 47-91-6542ckgjydkcqwnub (Elavil) 10 MG tablet Indications: Primary insomnia Start with 1 pill at bedtime, after 7 days if not effective, then can increase to 2 pills 60 tablet 1 08/05/2024 ActiveStart: 60-54-0424uyywfkuphpukw (Elavil) 10 MG tablet Indications: Primary insomnia Start with 1 pill at bedtime, after 7 days if not effective, then can increase to 2 pills 60 tablet 1 08/05/2024 ActiveStart: 04-22-2024 End: 61-32-3677nyppfrmbberru (Elavil) 10 MG tablet Indications: Primary insomnia Start with 1 pill at bedtime, after 7 days if not effective, then can increase to 2 pills 60 tablet 1 04/22/2024 08/05/2024 Discontinued (Reorder)ARIPiprazole 5 mg oral tablet (20 sources)Atypical AntipsychoticStart: 06-03-2024 End: 56-04-0339mujh 1 tablet by mouth once dailyAripiprazole 5 mg tablet Active 5 MG PO Daily 90 1 November 18, 2024 8:56am Generalized anxiety disorder Mild episode of recurrent major depressive disorder Generalized anxiety disorder Major depressive disorder, recurrent, mild Complies with drug therapyStart: 07-18-2023 End: 09-17-8457thcd 1 tablet by mouth once dailyARIPiprazole (Abilify) 2 MG tablet Indications: Anxiety and depression (CMS/HCC) Take 1 tablet (2 mg) by mouth Daily 90 tablet 1 03/25/2024 06/03/2024 Discontinued (Ineffective) betamethasone 0.5 mg/ml / clotrimazole 10 mg/ml topical cream (4 sources)Azole Antifungal, CorticosteroidStart: 07-25-2024 End: 73-60-9235jiqwkgiyscri-betamethasone (Lotrisone) cream Indications: Skin candidiasis Apply topically in the morning and before bedtime. Do all this for 28 days. 45 g 07/25/2024 08/05/2024 Discontinued (Therapycompleted)busPIRone hydrochloride 10 mg oral tablet (20 sources)Start: 43-77-2846nnzg 1 tablet by mouth twice daily as needed Buspirone 10 mg tablet Active 10 MG PO Twice daily as needed November 02, 2024 11:00pm Complies with drug therapyStart: 07-18-2023 End: 12-65-7346iksc 1 tablet by mouth oncebusPIRone (Buspar) 10 MG tablet Indications: Anxiety and depression Take 1 tablet (10 mg) by mouth every 12 (twelve) hours 180 tablet 1 08/05/2024 11/03/2024 ActiveStart: 11-03-2021 busPIRone 7.5 mg oral tablet Refills(s) 0 Start Date: 11/03/21 Status: Ordered cetirizine hydrochloride 10 mg oral tablet (20 sources)Histamine-1 Receptor AntagonistStart: 07-18-2023 End: 77-13-4567vrxd 1 tablet by mouth once daily as neededCetirizine (All Day Allergy (Cetirizine)) 10 mg tablet Active 10 MG PO Daily as needed October 11:00pm Complies with drug therapycholecalciferol 0.125 mg oral capsule (7 sources)Vitamin DStart: 07-18-2023 End: 00-36-0866cseb 1 capsule by mouth once dailycholecalciferol (Vitamin D-3) 125 MCG (5000 UT) capsule Indications: Vitamin D deficiency Take 1 capsule (125 mcg) by mouth Daily 90 capsule 1 10/18/2023 01/16/2024 Activelevothyroxine sodium 0.075 mg oral tablet (20 sources)l-ThyroxineStart: 07-18-2023 End: 58-24-7585felp 1 tablet by mouth once dailyLevothyroxine 75 mcg tablet Active 75 MCG PO Daily November 02, 2024 11:00pm Complies with drug therapy Start: 64-29-7340kafi 1 tablet by mouth once dailylevothyroxine 50 mcg (0.05 mg) Tab 50 microgram = 1 tab(s), Oral, Daily, Refills(s) 0 Start Date: 11/06/18 Status: Orderedlosartan potassium 50 mg oral tablet (20 sources)Angiotensin 2 Receptor BlockerStart: 11-05-2024 End: 45-27-9115aedy 1 tablet by mouth once dailyLosartan 50 mg tablet Active 50 MG PO Daily 90 1 December 11, 2024 10:33am Primary hypertension Essential (primary) hypertension Complies with drug therapyStart: 03-25-2024 End: 25-15-7138thbe 1 tablet by mouth once dailyLosartan 25 mg tablet Discontinued 25 MG PO Daily November 02, 2024 11:00pm November 05, 2024 12:26pm24 hr mirabegron 50 mg extended release oral tablet (7 sources)beta3-Adrenergic AgonistStart: 07-18-2023 End: 41-56-5364tsaf 1 tablet by mouth every twenty-four hours at bedtime mirabegron ER (Myrbetriq) 50 MG 24 hr tablet Indications: Urinary incontinence in female Take 1 tablet (50 mg) by mouth at bedtime Do not crush, chew, or split. 90 tablet 1 10/18/2023 01/16/2024 Activemontelukast 10 mg oral tablet (20 sources)Leukotriene Receptor AntagonistStart: 07-18-2023 End: 47-14-8731htup 1 tablet by mouth once daily at bedtimeMontelukast 10 mg tablet Active 10 MG PO Daily at bedtime November 02, 2024 11:00pm Complies with drug therapyStart: 48-48-4695qqwl 1 tablet by mouth once dailySingulair 10 mg Tab 10 mg = 1 tab(s), Oral, Daily, Refills(s) 0 Start Date: 11/06/18 Status: Orderednaproxen 500 mg oral tablet (12 sources)Nonsteroidal Anti-inflammatory DrugStart: 74-63-0614zxgo 1 tablet by mouth twice daily as neededNaproxen 500 mg tablet Active 500 MG PO Twice daily as needed November 02, 2024 11:00pm Complieswith drug therapyStart: 05-02-0609qpyd 1 tablet by mouth twice daily as needednaproxen (Naprosyn) 500 MG tablet Take 500 mg by mouth 2 (two) times a day as needed 04/13/2024 Active nystatin 305113 unt/ml topical cream (2 sources)Polyene AntifungalStart: 08-05-2024 End: 42-76-9097ptcdoxbp (Mycostatin) cream Indications: Candidiasis Apply topically in the morning and before bedtime. Do all this for 15 days. 30 g 1 08/05/2024 08/20/2024 Activesertraline 100 mg oral tablet (20 sources)Serotonin Reuptake InhibitorStart: 07-18-2023 End: 49-26-3909byur 1 tablet by mouth twice dailySertraline 100 mg tablet Active 100 MG PO Twice daily November 02, 2024 11:00pm Complies with drug therapy Start: 06-17-5257ayoa 1 tablet by mouth once dailyZoloft 100 mg Tab 100 mg = 1 tab(s), Oral, Daily, Refills(s) 0 Start Date: 11/06/18 Status: Orderedsimvastatin 20 mg oral tablet (20 sources)HMG-CoA Reductase InhibitorStart: 07-18-2023 End: 41-10-7086nvar 1 tablet by mouth once daily at bedtimeSimvastatin 20 mg tablet Active 20 MG PO Daily at bedtime November 02, 2024 11:00pm Complies with drug therapyStart: 98-79-2957rdfg 1 tablet by mouth once daily at bedtime simvastatin 20 mg Tab 20 mg = 1 tab(s), Oral, Once a day (at bedtime), Refills(s) 0 Start Date: 11/06/18 Status: Orderedtolterodine tartrate 2 mg oral tablet (2 sources)Cholinergic Muscarinic AntagonistStart: 03-48-3137qarr 1 tablet by mouth twice dailytolterodine 2 mg Tab 2 mg = 1 tab(s), Oral, BID, # 60 tab(s), Refills(s) 11, Pharmacy: [facility]/pharmacy#[id number], 165.1, cm, 03/31/20 9:27:00 EST, Height/Length Dosing, 92.8, kg, 03/31/20 9:27:00 EST, Weight Dosing Start Date: 11/03/21 Status: OrderedtraZODone hydrochloride 50 mg oral tablet (18 sources)Serotonin Reuptake InhibitorStart: 07-18-2023 End: 45-69-2100tmsu 2 tablets by mouth at bedtimetraZODone (Desyrel) 50 MG tablet Indications: Anxiety and depression (CMS/HCC) Take 2 tablets (100 mg) by mouth at bedtime 180 tablet 1 03/25/2024 04/22/2024 Discontinued (Ineffective) Vitamin D (2 sources)Start: 20-79-5940Mcdubym D Oral, Daily, Refills(s) 0 Start Date: 11/06/18 Status: Ordered Problems Active Problems Problem ClassificationProblemDateDocumented DateEpisodic/ChronicAcquired foot deformities (20 sources)Acquired hallux valgus; Translations: [Hallux valgus (acquired), unspecified foot]Onset: 862371-22-0187SxcaqzxNtfjxvo disorders (20 sources)Mixed anxiety and depressive disorder; Translations: [Anxiety disorder, unspecified]Onset: 258058-27-9443PmcnwbaWimosgdpnx associated with dizziness or vertigo (2 sources)Dizziness; Translations: [Dizziness and giddiness]05-12-6167Uqhqvbll Disorders of lipid metabolism (20 sources)Hypercholesterolemia; Translations: [Hyperlipidemia, unspecified] Onset: 08-09-2021 Resolved: 876675-07-3178FuuyggwJgpghutnzdptpx and diverticulitis (20 sources)Diverticular disease; Translations: [Diverticulosis of intestine, part unspecified, without perforation or abscess without bleeding]Onset: 730099-96-3360LehtoboKvfrczcky hypertension (20 sources)Hypertensive disorder; Translations: [Essential (primary) hypertension]Onset: 349205-10-1122BaukhspPvfgyww on above:on no meds at presentGenitourinary symptoms and ill-defined conditions (20 sources)Mixed incontinence; Translations: [Female stress incontinence]Onset: 27-44-8557YqhnmuhFknhsvacvqmiz symptoms and ill-defined conditions (20 sources)Nocturia; Translations: [Poor stream of urine]Onset: 04-13-2023 37-92-7072IscvxaprWoctyrrgcvimg mental health disorders (6 sources)Primary insomnia; Translations: [Primary insomnia]33-85-1528Iqurrsv Mood disorders (20 sources)Recurrent major depressive episodes, mild ; Translations: [Major depressive disorder, recurrent, mild]Onset: 400933-69-2318FqvjmosUojxtom (20 sources)Candidiasis of skin; Translations: [Candidiasis of skin and nail] Onset: 060149-96-0983YoiffqonVdwtarhdkqc deficiencies (20 sources)Vitamin D deficiency, unspecified; Translations: [Vitamin D deficiency]Onset: 757666-73-6621MuyrwiiMdqme acquired deformities (20 sources)Contracture of joint of right ankle; Translations: [Contracture, right ankle]Onset: 110713-47-3849XtvqdqyTmpjn bone disease and musculoskeletal deformities (2 sources)Posterior calcaneal otysbhazw16-26-2298CfehcltlPcowjqp on above:left Other bone disease and musculoskeletal deformities (20 sources)Osteopenia; Translations: [Other specified disorders of bone density and structure, unspecified site]Onset: 992420-12-1565MpurdffqNttzr connective tissue disease (20 sources)Dupuytren's contracture; Translations: [Palmar fascial fibromatosis [Dupuytren]]Onset: 521183-40-8196MxlhzjkdOeied diseases of bladder and urethra (1 source)Detrusor overactivity; Translations: [Overactive bladder]Onset: 81-61-4393WjcmcyrLsyih diseases of bladder and urethra (2 sources)Overactive pjpycyi89-40-0482IfggnhzGfbfn diseases of bladder and urethra (3 sources)Traumatic urethral stricture; Translations: [Other post-traumatic urethral stricture, female]Onset: 31-79-9239SaqzuamiEkeod diseases of veins and lymphatics (2 sources)Venous insufficiency of leg; Translations: [Venous insufficiency (chronic) (peripheral)]57-92-4001XtkgptmrVptuo lower respiratory disease (20 sources)Nodule of lung; Translations: [Solitary pulmonary nodule]Onset: 504702-53-6398JuzwlnzxXgfki nervous system disorders (20 sources)Bilateral carpal tunnel syndrome; Translations: [Carpal tunnel syndrome, bilateral upper limbs]Onset: 696942-93-7522AlbczdxCzzlu nervous system disorders (20 sources)Ulnar neuropathy of right arm; Translations: [Lesion of ulnar nerve, right upper limb]Onset: 454931-79-2581JunucrkHjzqv nervous system disorders (2 sources)Ulnar neuropathy; Translations: [Lesion of ulnar nerve, unspecified upper limb]86-91-5982KiswqdiSssvn nutritional; endocrine; and metabolic disorders (3 sources)Overweight; Translations: [Overweight]66-09-8969PztnoircNttjc screening for suspected conditions (not mental disorders or infectious disease) (20 sources)Encounter for screening mammogram for malignant neoplasm of breast; Translations: [Patient encounter status]Onset: 03-18-8851IxnscrwgFhapo upper respiratory disease (2 sources)Seasonal allergic -95-6198KhzhtztAjfkk upper respiratory disease (20 sources)Allergic rhinitis; Translations: [Allergic rhinitis, unspecified] Onset: 966170-36-6855EyedvqqEjczb upper respiratory disease (20 sources)Seasonal allergy; Translations: [Other seasonal allergic rhinitis] Onset: 508210-74-9635VqanfqtNyqmv upper respiratory disease (2 sources)Allergic disposition; Translations: [Other allergic rhinitis] 44-58-9401LltpyakPpblrfcr codes; unclassified (20 sources)Obstructive sleep apnea syndrome; Translations: [Obstructive sleep apnea (adult) (pediatric)]Onset: 291474-92-0687PuurnnlDlzkagak codes; unclassified (20 sources)Insomnia; Translations: [Insomnia, unspecified]Onset: 04-13-2023 66-71-3515ZxjicoaoWebyhthg codes; unclassified (20 sources)Postmenopausal state; Translations: [Asymptomatic menopausal state] Onset: 412323-98-6115JqkrnxjfLnfifjswzvy; intervertebral disc disorders; other back problems (20 sources)Other cervical disc degeneration, unspecified cervical region; Translations: [Other intervertebral disc degeneration, thoracic region]Onset: 864237-20-5326HhpzvwlWtbpgspqdoi; intervertebral disc disorders; other back problems (20 sources)Pain in thoracic spine; Translations: [Spinal stenosis of lumbar region]Onset: 05-25-2022 Resolved: 89-26-7322OatwiiggYywcjnh disorders (20 sources)Hypothyroidism, unspecified; Translations: [Hypothyroidism]Onset: 791365-18-9812PwnrdwfLthsbahzicew (2 sources)Asymptomatic microscopic jgjpxpnud55-83-2200Iygwhfkihzqe (2 sources)Finding of sensation of tssobfz15-62-0623Uffctrsfbubz (1 source)Hallux valgus (acquired), right foot; Translations: [Hallux valgus (acquired), right foot]Onset: 59-55-8028Gfjhqpvucquf (3 sources)CONTACT W/AND (SUSP) EXPOS COVID-19; Translations: [CONTACT W/AND (SUSP) EXPOS COVID-19]Onset: 03-14-2023 Past or Other Problems Problem ClassificationProblemDateDocumented DateEpisodic/ChronicAbdominal pain (20 sources)Abdominal pain; Translations: [Unspecified abdominal pain]Onset: 04-13-2023 Resolved: 493116-82-8970XjvcrewnWdiivpr obstructive pulmonary disease and bronchiectasis (20 sources)Bronchitis, not specified as acute or chronic; Translations: [Bronchitis]Onset: 05-09-2022 Resolved: 10-21-5357NdaygrovYozcogai of upper limb (20 sources)Fracture at wrist and/or hand level; Translations: [Fracture of unspecified carpal bone, unspecified wrist, initial encounter for closed fracture]Onset: 04-13-2023 Resolved: 596196-88-7606MaebsatxZfxwyfygjxhlt and screening for infectious disease (17 sources)Needs influenza immunization; Translations: [Encounter for immunization]Onset: 940569-22-8998YylbdvlmZons disorders (17 sources)Mood disordersOnset: 999129-14-2984Akwwsjzgkyv chest pain (20 sources)Chest pain; Translations: [Chest pain, unspecified]Onset: 04-13-2023 Resolved: 451291-11-1333NgxbvonfLzxnl bone disease and musculoskeletal deformities (1 source)Other specified disorders of bone density and structure, unspecified site; Translations: [OTH D/O BONE DEN STRUCT UNS SITE]Onset: 05-98-6128Ocmjyfhr Other connective tissue disease (20 sources)Dupuytren's disease of palm; Translations: [Palmar fascial fibromatosis [Dupuytren]]Onset: 731320-24-2645KqvpxsiqEckuw connective tissue disease (20 sources)Lateral epicondylitis; Translations: [Lateral epicondylitis, unspecified elbow]Onset: 04-13-2023 Resolved: 635135-31-6420JocuyxmnKgwnv diseases of veins and lymphatics (20 sources)Peripheral venous insufficiency; Translations: [Venous insufficiency (chronic) (peripheral)]Onset: 212602-50-4402TgcuijpuUsznk lower respiratory disease (20 sources)Dyspnea; Translations: [Dyspnea, unspecified]Onset: 04-13-2023 Resolved: 442593-24-5443BdnxdzkqQsikb non-traumatic joint disorders (4 sources)Pain in right hip; Translations: [PAIN IN RIGHT HIP]Onset: 12-08-2021 EpisodicOther nutritional; endocrine; and metabolic disorders (20 sources)Body mass index 30+ - obesity; Translations: [Obesity, unspecified] Onset: 01-31-2023 Resolved: 716950-73-2227HqyvbuaPpaxu nutritional; endocrine; and metabolic disorders (20 sources)Obesity caused by energy imbalance; Translations: [Class 1 obesity due to excess calories without serious comorbidity in adult]Onset: 01-31-2023 Resolved: 826613-13-6693MsmtjpfBaldq nutritional; endocrine; and metabolic disorders (20 sources)Body mass index 25-29 - overweight; Translations: [Overweight]Onset: 598777-14-4131NwydbemyXtobfsrlb by nonmedicinal substances (20 sources)Insect sting; Translations: [Toxic effect of venom of other arthropod, accidental (unintentional), initial encounter]Onset: 04-13-2023 Resolved: 989359-83-2439TatjbcrzGcnbpvyz codes; unclassified (1 source)Asymptomatic menopausal state; Translations: [ASYMPTOMATIC MENOPAUSAL STATE]Onset: 61-76-2224CjcifbwoDtkmjmid codes; unclassified (1 source)Family history of malignant neoplasm of other organs or systems; Translations: [FAM HX MALIG NEOPLASM OTH ORGN/SYS]Onset: 13-48-4720Gyzsweby Residual codes; unclassified (4 sources)Menopause present; Translations: [Asymptomatic menopausal state] Onset: 081242-89-4830AnlzowglQmplxssjmqpv (1 source)CONTACT W/AND (SUSP) EXPOS COVID-19; Translations: [CONTACT W/AND (SUSP) EXPOS COVID-19]Onset: 05-02-2022 Results Test NameValueInterpretationReference RangeFacilityTBH UA (CLEAN/CATCH) MICROSCOPIC IF INDICATEon 30-11-7900UTRXTYQNO URINENegativeNEGATIVENOMS HealthcareBLOOD URINESMALLAbnormalNEGATIVENOMS HealthcareClarity (U)CLEARCLEAR NOMS HealthcareColor (U)LT. YELLOWYELLOWNOMS HealthcareGLUCOSE URINE UANegative NEGATIVE mg/dLNOMS HealthcareInterpretation and review of laboratory results AbnormalNOMS HealthcareKetones Ql (U)TRACEAbnormalNEGATIVE mg/dLNOMS Healthcare Leukocyte esterase Test strip Ql (U)MODERATEAbnormalNEGATIVENOMS Healthcare NITRITE URINENegativeNEGATIVENOMS HealthcarepH (U)6.0 [pH]5.0 - 9.0NOMS HealthcarePROTEIN URINENegativeNEG/TRACE mg/dLNOMS HealthcareSPECIFIC GRAVITY URINE1.0251.005 - 1.025NOMS HealthcareURINE MICROSCOPIC INDICATEDYESNOMS HealthcareUROBILINOGEN URINE1.0 EU/dL0.2 - 1.0 EU/dLNOMS HealthcareCLINISYNCNOMS HealthcareXR DEXA AXIAL SKELETONon 81-79-3425[place], [place] [address] XRay Report Signed Patient: CLAUDETTE ROSS MR#: [id number] : 1955 Acct:[id number] Age/Sex: 68 / F ADM Date: 04/03/24 Loc: RAD Attending Dr: Jessica Sosa HEALTH ANALYST Ordering Physician: Jessica Sosa NP Date of Service: 04/03/24 Procedure(s): XR DEXA axial skeleton Accession Number(s): [id number] cc: Jessica Sosa NP [place] [id number] Patient Name: CLAUDETTE ROSS MRN: [id number] date: 1955 Sex: F Assigned Patient Location: [facility] Current Patient Location: Accession/Order Number: [id number] Exam Date: 04/03/2024 09:28 Report Date: 04/04/2024 [...] prevention and treatment of osteoporosis. Osteoporos Int. 2021;33(10):6676-3396. doi: 10.1007/v61366-170-26295-n. Epub 2021Jun 17. Erratum in: Osteoporos Int. 2021Sep 16;: PMID: 86247687; PMCID: [id number]. Electronically authenticated by: JEROME AYALA Date: 04/04/2024 08:01 Dictated By: Jerome Ayala M.D. Signed By: 04/04/24803 DD/ 0 TD/TT: Communications Tower Climber:TBHRadiology, Radiologist, - 04/04/2024 [place] [address] XRay Report Signed Patient: CLAUDETTE ROSS MR#: [id number] : 1955 Acct:[id number] Age/Sex: 68 / F ADM Date: 04/03/24 Loc: [facility] Attending Dr: Jessica Sosa NP Ordering Physician: Jessica Sosa NP Date of Service: 04/03/24 Procedure(s): XR DEXA axial skeleton Accession Number(s): [id number] cc: Jessica Sosa NP [place] [address] Patient Name: CLAUDETTE ROSS MRN: [id number] date: 1955 Sex: F Assigned Patient Location: [facility] Current Patient Location: Accession/Order Number: [id number] Exam Date: 04/03/2024 09:28 Report Date: 04/04/2024 [...] prevention and treatment of osteoporosis. Osteoporos Int. 2021;33(10):9212-4476. doi: 10.1007/p65559-760-19577-z. Epub 2021Jun 17. Erratum in: Osteoporos Int. 2021Sep 16;: PMID: 08007438; PMCID: [id number]. Electronically authenticated by: JEROME AYALA Date: 04/04/2024 08:01 Dictated By: Jerome Ayala M.D. Signed By: 04/04/24803 DD/ 0 TD/TT: Communications Tower Climber: DAVID HealthcareRadiology Study observation (narrative)[facility] DEXA AXIAL SKELETONOrdered By: Radiologist Radiology on 52-34-4833DWBF Novitaz Work Phone: mm TOMOSYNTHESIS SCREENING BIon 56-14-5344[place]wi[place], [place] [address] Mammography Report Signed Patient: CLAUDETTE ROSS MR#: [id number] : 1955 Acct:[id number] Age/Sex: 68 / F ADM Date: 10/25/23 Loc: MAMMO Attending Dr: Jessica Sosa NP Ordering Physician: Jessica Sosa NP Results: Date of Service: 10/25/23 Follow Up: Procedure(s): MM tomosynthesis screening BI Accession Number(s): [id number] cc: Jessica Sosa NP Patient Name: CLAUDETTE ROSS MR#: [id number] : 1955 Exam Date: 10/25/2023 Ordering Doctor: [...] pancreatic cancer at age 58. LOCATION: [facility] BREAST COMPOSITION: There are scattered areas [...] PALPABLE LUMP SHOULD BE BIOPSIED. Dictated by: Jerome Ayala M.D. on 10/27/2023 at 12:52 Approved by: Jerome Ayala M.D. on 10/27/2023 at 13:40 Dictated By: Jerome Ayala M.D. Signed By: 10/27/231340 DD/ 40 TD/TT: Communications Tower Climber:TBHRadiology, Radiologist, - 10/27/2023 [facility] [place] [id number] Mammography Report Signed Patient: CLAUDETTE ROSS MR#: [id number] : 1955 Acct:[id number] Age/Sex: 68 / F ADM Date: 10/25/23 Loc: MAMMO Attending Dr: Jessica Sosa NP Ordering Physician: Jessica Sosa NP Results: Date of Service: 10/25/23 Follow Up: Procedure(s): MM tomosynthesis screening BI Accession Number(s): [id number] cc: Jessica Sosa NP Patient Name: CLAUDETTE ROSS MR#: [id number] : 1955 Exam Date: 10/25/2023 Ordering Doctor: [...] pancreatic cancer at age 58. LOCATION: [facility] BREAST COMPOSITION: There are scattered areas [...] PALPABLE LUMP SHOULD BE BIOPSIED. Dictated by: Jerome Ayala M.D. on 10/27/2023 at 12:52 Approved by: Jerome Ayala M.D. on 10/27/2023 at 13:40 Dictated By: Jerome yAala M.D. Signed By: 10/27/231340 DD/ 40 TD/TT: Communications Tower Climber: [facility] CenterRadiology Study observation (narrative)[facility] CenterMM TOMOSYNTHESIS SCREENING BIOrdered By: Radiologist Radiology on 12-64-9355CUEP Novitaz Work Phone: cbc AUTO DIFFon 17-37-4040XAUY #0.0 103/ulNormal 0.0-0.1The [facility] HospitalComment on above:Performed By: #### CBC #### [facility] [address] [place] [address] Dr. Dedrick KinseyBasophils/100 WBC (Bld)0.5 %Normal0.2-2.0[facility] Comment on above:Performed By: #### CBC #### [facility] [address] [place] [address] [address] Dedrick Gtz #0.1 103/ulNormal0.0-0.7The [facility] HospitalComment on above: Performed By: #### CBC #### [facility] [address] [place] [address] Dr. Dedrick Montañoosinophils/100 WBC (Bld)2.5 %Normal0.9-7.0[facility] Comment on above:Performed By: #### CBC #### [facility] [address] [address] [address] Dedrick Montañorythrocyte distribution width (RBC) [Ratio]13.2 %Uhpyhc06.0-15.0 The [facility] HospitalComment on above:Performed By: #### CBC #### [facility] [address] [place] [address] Dr. Dedrick KinseyHematocrit (Bld) [Volume fraction]37.5 %Xawnub32.0-48.0The [facility] HospitalComment on above:Performed By: #### CBC #### [facility] [address] [address] [address] Dedrick KinseyHemoglobin (Bld) [Mass/Vol]12.6 g/tMHbenoo75.0-16.0The [facility] HospitalComment on above:Performed By: #### CBC #### [facility] [address] [place] [address] Dr. Dedrick Espinosa #0.01 10e3/ulNormal0.00-0.03The [facility] HospitalComment on above:Performed By: #### CBC #### [facility] [address] [place] [address] Dr. Dedrick Espinosa %0.2 %Normal0.0-0.5The [facility] HospitalCombaraga county memorial hospital on above: Performed By: #### CBC #### [facility] [address] [place] [address] Dr. Dedrick Cardona #1.5 103/ulNormal1.2-3.8The [facility] HospitalComment on above:Performed By: #### CBC #### [facility] [address] [place] [address] Dr. Dedrick Jacobhocytes/100 WBC (Bld)34.0 %Swwtdg15.5-60.0The [facility] on above:Performed By: #### CBC #### [facility] [address] [place] [address] Dr. Dedrick PinkUAL DIFF REQNONormalThe [facility] HospitalComment on above: Performed By: #### CBC #### [facility] [address] [place] [address] Dr. Dedrick Ibanez (RBC) [Entitic mass]29.9 nbOimwvi01.7-34.0The [facility] HospitalComment on above:Performed By: #### CBC #### [facility] [address] [place] [address] Dr. Dedrick Ibanez (RBC) [Mass/Vol]33.6 g/qUWbiocb07.9-35.2The [facility] HospitalComment on above:Performed By: #### CBC #### [facility] [address] [place] [address] [address] Dedrick IbanezV (RBC) [Entitic vol]89.1 uFRcyoqe01.0-99.0The [facility] Hospitalment on above:Performed By: #### CBC #### [facility] [address] [place] [address] Dr. Dedrick Chung #0.4 103/ulNormal0.3-0.8The [facility] HospitalComment on above:Performed By: #### CBC #### [facility] [address] [place] [address] Dr. Dedrick Parsonsocytes/100 WBC (Bld)9.0 %Normal1.7-12.0The [facility] Comment on above:Performed By: #### CBC #### [facility] [address] [place] [address] Dr. Dedrick Madrigal #2.3 103/ulNormal1.4-6.5The [facility] HospitalComment on above:Performed By: #### CBC #### [facility] [address] [place] [address] Dr. Dedrick Langutrophils/100 WBC (Bld)53.8 %Rpucat66.0-75.0The [facility] HospitalComment on above:Performed By: #### CBC #### [facility] [address] [place] [address] Dr. Dedrick Maciel mean volume (Bld) [Entitic vol]9.2 fLCritically low 9.5-13.5The [facility] HospitalComment on above:Performed By: #### CBC #### [facility] [address] [place] [address] Dr. Dedrick KinseyPLT188 103/beTwawhe542-428Htr [facility] HospitalComment on above: Performed By: #### CBC #### [facility] [address] [place] [address] Dr. Dedrick KinseyRBC4.21 106/ulNormal4.20-5.40The [facility] HospitalComment on above:Performed By: #### CBC #### [facility] [address] [place] [address] [address] Dedrick KinseyWBC4.4 103/ulNormal4.0-11.0The [facility] Hospitalment on above: Performed By: #### CBC #### [facility] [address] [place] [address] [address] Dedrick KinseyFREE T4on 70-07-2714Ptqx T4 [Mass/Vol]0.79 ng/dLNormal0.76-1.46 The [facility] HospitalComment on above:Performed By: #### VITAD, FT4 ####[facility] [address] [place] [address]Dr. Dedrick Kinsey LIPID PROFILEon 08-12-8694EEYQ-HDL RATIO NORMSEE BELOWUniversity Hospitals Geneva Medical CenterComment on above:Result Comment: 3.3 - 4.4 LOW RISK 4.4 - 7.1 AVERAGE RISK 7.1 - 11.0 MODERATE RISK >11.0 HIGH RISKPerformed By: #### TSH, CMP, LIPID ####[facility] [address] [place] [id number]. Dedrick ChangCholesterol [Mass/Vol]175 mg/dLNormal<=200The [facility] Comment on above:Performed By: #### TSH, CMP, LIPID ####[facility] Xxisceficf53[address] [place] [id number]. Dedrick ChangCholesterol in HDL [Mass/Vol]39 mg/dLCritically epu74-49Syf [facility] on above: Performed By: #### TSH, CMP, LIPID ####[facility] F[address]xa[address] [place] [id number]. Dedrick ChangCholesterol in LDL [Mass/Vol]113.6 mg/dLSelect Medical Specialty Hospital - Canton on above:Performed By: #### TSH, CMP, LIPID ####[facility] Ckcumzqpjy[address] [place] [id number]. Dedrick ChangCholesterol.total/Cholesterol in HDL [Mass ratio]4.5 {ratio} NormalThe Suzanna HospitalComment on above:Performed By: #### TSH, CMP, LIPID ####[facility] [address]sobomnr[address] [place] [address]Dr. Dedrick KinseyHDL NORMAL> or = 60 mg/dl - LOW CARDIOVASCULAR RISK <40 mg/dl - HIGH CARDIOVASCULAR RISKUniversity Hospitals Geneva Medical CenterComment on above:Performed By: #### TSH, CMP, LIPID ####[facility] [address]ssfzcc[address] [place] [address]Dr. Yilan ChangLDL CALC NORMALSEE BELOWNoOhioHealth Grant Medical CenterComment on above:Result Comment: <100 mg/dl OPTIMAL 100 - 129 mg/dl NEAR OR ABOVE OPTIMAL 130 - 159 mg/dl BORDERLINE HIGH 160 - 189 mg/dl HIGH >190 mg/dl VERY HIGHPerformed By: #### TSH, CMP, LIPID ####[facility] Ocephuqwzx[address] [place] [address]Dr. Dedrick KinseyTriglyceride [Mass/Vol]112 mg/dLNormal<=150The [facility] HospitalComment on above:Performed By: #### TSH, CMP, LIPID ####[facility] [address] [place], [place] [address]Dr. Dedrick KinseyVLDL CALC22.4 mg/dLNoOhioHealth Grant Medical CenterComment on above:Performed By: #### TSH, CMP, LIPID ####[facility] [address]ps[address]hmbrs[address] [place] [address]Dr. Dedrick KinseyPROF 14(COMP METB)on 44-24-6537Rstemjx [Mass/Vol]3.5 g/dLNormal3.4-5.0The [facility] Hospitalment on above:Performed By: #### TSH, CMP, LIPID ####[facility] Elnuyf[address] [place], [place] [address]Dr. Dedrick Kinsey Albumin/Globulin [Mass ratio]1.0 {ratio}NormalThe [facility] on above:Performed By: #### TSH, CMP, LIPID ####[facility] Zoddnhhclm[address] [place] [address]Dr. Dedrick KinseyALP [Catalytic activity/Vol] 84 U/RCyqgkv20-693Knx [facility] HospitalComment on above:Performed By: #### TSH, CMP, LIPID ####[facility] Vxmgqfwdrs[address] [place] [address]Dr. Yilan ChangALT [Catalytic activity/Vol]37 U/YQeqhkx44-08Zlb [facility] HospitalComment on above:Performed By: #### TSH, CMP, LIPID ####[facility] Pptrcvhxml2905 [place] [address]Dr. Yilan ChangAnion gap [Moles/Vol]11.7 mmol/LNormalThe [facility] HospitalComment on above:Performed By: #### TSH, CMP, LIPID ####[facility] Twsdirffgq[address] [place], [place] [address]Dr. Yilan ChangAST [Catalytic activity/Vol]20 U/L Xaqfww79-23Gnw [facility] HospitalComment on above:Performed By: #### TSH, CMP, LIPID ####[facility] Labmloriwl[address] [place], [place] [address]Dr. Yilan ChangBilirubin [Mass/Vol]0.8 mg/dLNormal0.2-1.0The [facility] HospitalComment on above:Performed By: #### TSH, CMP, LIPID ####[facility] [address]frfsk[address] [place], [place] [address]Dr. Yilan Kinsey Calcium [Mass/Vol]9.4 mg/dLNormal8.5-10.1The [facility] HospitalComment on above: Performed By: #### TSH, CMP, LIPID ####[facility] Feiu[address] [place], [place] [address]Dr. Yilan ChangChloride [Moles/Vol]106 mmol/L Fpkjpb01-198Xmt [facility] HospitalComment on above:Performed By: #### TSH, CMP, LIPID ####[facility] Amrpcxrvri[address] [place], [place] [address]Dr. Yilan ChangCO2 [Moles/Vol]28.4 mmol/FUgktvn55.0-32.0The [facility] HospitalComment on above:Performed By: #### TSH, CMP, LIPID ####[facility] Cjxqglzldg[address] [place] [address]Dr. Yilan Kinsey Creatinine [Mass/Vol]0.77 mg/dLNormal0.55-1.02The [facility] HospitalComment on above:Performed By: #### TSH, CMP, LIPID ####[facility] Nlxzrecwbv64[address] [place] [address]Dr. Yilan ChangEGFR-AF ALGERIAN>60Normal>=60 The [facility] HospitalComment on above:Performed By: #### TSH, CMP, LIPID ####[facility] Lrzkcvpomd[address] [place], [place] [address]Dr. Yilan ChangEGFR-NON AF ALGERIAN>60Normal>=60The [facility] HospitalComment on above:Performed By: #### TSH, CMP, LIPID ####[facility] Igzqemxdoi[address] [place], [place] [address]Dr. Yilan ChangGlobulin (S) [Mass/Vol]3.6 g/dLNormalThe [facility] HospitalComment on above:Performed By: #### TSH, CMP, LIPID ####[facility] [address]wptvaexrr[address] [place], [place] [address]Dr. Yilan ChangGlucose [Mass/Vol]106 mg/mZCercqf61-587Ctx [facility] Comment on above:Performed By: #### TSH, CMP, LIPID ####[facility] Zwooj[address]awv[address] [place], [place] [address]Dr. Yilan ChangPotassium [Moles/Vol]4.1 mmol/LNormal3.5-5.1The [facility] Hospitalment on above: Performed By: #### TSH, CMP, LIPID ####[facility] Epug[address]bwhb[address] [place], [place] [address]Dr. Yilan ChangProtein [Mass/Vol]7.1 g/dLNormal 6.4-8.2The [facility] HospitalComment on above:Performed By: #### TSH, CMP, LIPID ####[facility] Eqgqrqfyjv[address] [place], [place] [address]Dr. Yilan ChangSodium [Moles/Vol]142 mmol/WBkipti629-909Cbh [facility] HospitalComment on above:Performed By: #### TSH, CMP, LIPID ####[facility] [address]eyrekkx[address] [place] [address]Dr. Yilan ChangUrea nitrogen [Mass/Vol]10.0 mg/dLNormal7.0-18.0The [facility] HospitalComment on above: Performed By: #### TSH, CMP, LIPID ####[facility] Rbxxzgiwov[address] [place], [place] [address]Dr. Yilan ChangUrea nitrogen/Creatinine [Mass ratio]13.0 mg/mgNoOhioHealth Grant Medical CenterComment on above:Performed By: #### TSH, CMP, LIPID ####[facility] Jnhy[address] [place], [place] [address]Dr. Dedrick ChangTSHon 25-52-3888MBK0.611 uIU/mLNormal0.358-3.740The [facility] HospitalCombaraga county memorial hospital on above:Performed By: #### TSH, CMP, LIPID ####[facility] Fxt[address]ohd[address] [place], [place] [address]Dr. Marielylan ChangVITAMIN D 25 OHon 03-81-3432PDE D 25-OH31.7 ng/mLNormalThe [facility] HospitalCombaraga county memorial hospital on above:Performed By: #### VITAD, FT4 ####[facility] Cxmueifwwf[address] [place], [place] [address]Dr. Dedrick ChangVIT D RANGES SEE BELOWUniversity Hospitals Geneva Medical CenterCombaraga county memorial hospital on above:Result Comment: <20 ng/mL Vit D deficient 20 - <30 ng/mL Vit D insufficient 30 - 100 ng/mL Vit D sufficient >100 ng/mL Potential ToxicityPerformed By: #### VITAD, FT4 ####[facility] Tjqsam[address]uv[address] [place], [place] [address]Dr. Marielyrupert KinseyXR CSPINE 2_3 VIEWSon 55-45-2465NK CSPINE 2_3 VIEWSEXAMINATION: XR CSPINE 2_3 VIEWS HISTORY: Degeneration of cervical intervertebral [...] Electronically authenticated by: JEROME AYALA Date: 2022-05-25 11:30NoOhioHealth Grant Medical CenterXR TSPINE 3 VIEWSon 50-72-2875SL TSPINE 3 VIEWSEXAMINATION: XR TSPINE 3 VIEWS HISTORY: Pain in thoracic spine [...] Electronically authenticated by: JEROME AYALA Date: 2022-05-25 11:32NoOhioHealth Grant Medical CenterXR CHEST 2 Von 33-42-8084AG CHEST 2 VEXAM: XR CHEST 2 V HISTORY: Bronchitis . [...] by: JOSE DE JESUS PEREZ Date: 2022-05-09 12:45[facility] Medical CenterCovid-19 PCR (CVDTBH)on 61-41-3520LSHX-CoV-2 (COVID-19) RNA JAYY+probe Ql (Unsp spec)Not detectedNormalNOT DETECTEDThe [facility] Comment on above:Result Comment: When diagnostic testing is negative, the [...] for this test is supported by the Electronic Security Technician of Health and Human Service's declaration that circumstances exist to justify the emergency use of in vitro diagnostics for the detection and/or diagnosis of the virus that causes COVID-19. This EUA will remain in effect for the duration of the COVID-19 declaration justifying emergency of IVDs, unless it is terminated or revoked by the FDA (after which the test may no longer be used).Performed By: #### CVDTBH ####[facility] [address] [place] [address]DrChanda Tse [facility] Metabolic Panelon 73-42-8460Opybf gap [Moles/Vol]11.2 mmol/LNormal6.0-15.0[facility] HospitalComment on above:Order Comment: Reason for Exam HAV (hallux abducto valgus), rightPerformed By: #### CBC, BMP #### [facility] [address] [place] [address] USACalcium [Mass/Vol]9.2 mg/dLNormal8.2-10.2FFort Hamilton HospitalComment on above:Order Comment: Reason for Exam HAV (hallux abducto valgus), rightResult Comment: PERFORMED BY: [place] [id number] PATHOLOGIST SALES AND IN HOME DELIVERY SPECIALIST SHRUTHI KIRKPATRICK M.D.Performed By: #### CBC, BMP #### [facility] [address] [place] [address] USAChloride [Moles/Vol]102 mmol/UEarzdd29-720XyplkjvbeSalem City HospitalComment on above:Order Comment: Reason for Exam HAV (hallux abducto valgus), rightPerformed By: #### CBC, BMP #### [facility] [address] [place] [address] USACO2 [Moles/Vol]27.0 mmol/KQyzmft39.0-30.0[facility] HospitalComment on above:Order Comment: Reason for Exam HAV (hallux abducto valgus), rightPerformed By: #### CBC, BMP #### [place] [address] USACreatinine [Mass/Vol]0.80 mg/dLNormal0.44-1.03[facility] HospitalComment on above:Order Comment: Reason for Exam HAV (hallux abducto valgus), rightPerformed By: #### CBC, BMP #### [place] [address] USAEstimated GFR ( Kate> 60NormWright-Patterson Medical CenterComment on above:Order Comment: Reason for Exam HAV (hallux abducto valgus), rightResult Comment: GFR estimated reference range: According to KDOQI guidelines, <60 ml/min/1.73m2 is sufficient to diagnose a patient with chronic kidney disease.Performed By: #### CBC, BMP #### [place] [address] USAEstimated GFR (Non- Am> 60NormWright-Patterson Medical CenterComment on above:Order Comment: Reason for Exam HAV (hallux abducto valgus), rightPerformed By: #### CBC, BMP #### [place] [address] USAGlucose [Mass/Vol]99 mg/sSLpnngh96-078WjvcfwdvsSalem City HospitalComment on above:Order Comment: Reason for Exam HAV (hallux abducto valgus), rightResult Comment: Random Glucose Reference Range is dependent on time and content of last meal. Glucose of more than 200 mg/dL in a nonstressed, ambulatory subject supports the diagnosis of Diabetes Mellitus. ADA recommended reference rangePerformed By: #### CBC, BMP #### [place] [address] USAPotassium [Moles/Vol]4.2 mmol/LNormal3.5-5.1FFort Hamilton HospitalComment on above:Order Comment: Reason for Exam HAV (hallux abducto valgus), rightPerformed By: #### CBC, BMP #### [facility] [address] [place] [address] USASodium [Moles/Vol]136 mmol/QEyroiy898-358TcodwmdxrSalem City HospitalComment on above:Order Comment: Reason for Exam HAV (hallux abducto valgus), rightPerformed By: #### CBC, BMP #### [facility] [address] [place] [id number] USAUrea nitrogen [Mass/Vol]10 mg/dLNormal9-23[facility] HospitalComment on above:Order Comment: Reason for Exam HAV (hallux abducto valgus), rightPerformed By: #### CBC, BMP #### [facility] [address] [place] [address] USABasophils Auto (Bld) [#/Vol]Ordered By: Yordan Batres on 46-15-5640Vpduglrnr (Bld) [#/Vol]0.0 10*3/uL0.0-0.2FFort Hamilton HospitalBasophils/100 WBC Auto (Bld)Ordered By: Yordan Batres on 03-11-2022 Basophils/100 WBC (Bld)0.4 %.[facility] HospitalComplete Blood Count Auto Diffon 15-29-4005Ajolbccil (Bld) [#/Vol]0.0 10*3/uLNormal0.0-0.2 [facility] HospitalComment on above:Order Comment: Reason for Exam HAV (hallux abducto valgus), rightResult Comment: PERFORMED BY: [address] [place] [address] PATHOLOGIST SALES AND IN HOME DELIVERY SPECIALIST SHRUTHI KIRKPATRICK M.D.Performed By: #### CBC, BMP #### [facility] [address] [place], [place] [address] USABasophils/100 WBC (Bld)0.4 %Normal.[facility] HospitalComment on above:Order Comment: Reason for Exam HAV (hallux abducto valgus), rightPerformed By: #### CBC, BMP #### [facility] [address] [place] [address] USAEosinophils (Bld) [#/Vol]0.1 10*3/uLNormal0.0-0.45 [facility] HospitalComment on above:Order Comment: Reason for Exam HAV (hallux abducto valgus), rightPerformed By: #### CBC, BMP #### [facility] [address] [place] [address] USAEosinophils/100 WBC (Bld)1.4 %Normal.[facility] HospitalComment on above:Order Comment: Reason for Exam HAV (hallux abducto valgus), rightPerformed By: #### CBC, BMP #### [place] [address] USAErythrocyte distribution width (RBC) [Ratio]13.1 %Normal 11.9-15.3FFort Hamilton HospitalComment on above:Order Comment: Reason for Exam HAV (hallux abducto valgus), rightPerformed By: #### CBC, BMP #### [place] [address] USAHematocrit (Bld) [Volume fraction]39.5 %Usxymu90.0-46.4 [facility] HospitalComment on above:Order Comment: Reason for Exam HAV (hallux abducto valgus), rightPerformed By: #### CBC, BMP #### [place] [address] USAHemoglobin (Bld) [Mass/Vol]13.3 g/hXOvxiur09.8-15.4 [facility] HospitalComment on above:Order Comment: Reason for Exam HAV (hallux abducto valgus), rightPerformed By: #### CBC, BMP #### [place] [address] USALymphocytes (Bld) [#/Vol]1.6 10*3/uLNormal1.00-4.8 [facility] HospitalComment on above:Order Comment: Reason for Exam HAV (hallux abducto valgus), rightPerformed By: #### CBC, BMP #### [facility] [address] [place] [id number] USALymphocytes/100 WBC (Bld)22.0 %Normal.[facility] HospitalComment on above:Order Comment: Reason for Exam HAV (hallux abducto valgus), rightPerformed By: #### CBC, BMP #### [facility] [address] [place] [address] USAH (RBC) [Entitic mass]30.0 usBfmgun04.7-34.3FFort Hamilton HospitalComment on above:Order Comment: Reason for Exam HAV (hallux abducto valgus), rightPerformed By: #### CBC, BMP #### [facility] [address] [place] [address] USAV (RBC) [Entitic vol]88.8 jIOwkgzb33-733XhilwrgdySalem City HospitalComment on above:Order Comment: Reason for Exam HAV (hallux abducto valgus), rightPerformed By: #### CBC, BMP #### [place] [address] USAMean Corpuscular HGB Conc33.7 g/tVAxswni05.0-35.0Salem City HospitalComment on above:Order Comment: Reason for Exam HAV (hallux abducto valgus), rightPerformed By: #### CBC, BMP #### [place] [address] USAMonocytes (Bld) [#/Vol]0.5 10*3/uLNormal0.0-0.8Salem City HospitalComment on above:Order Comment: Reason for Exam HAV (hallux abducto valgus), rightPerformed By: #### CBC, BMP #### [place] [address] USAMonocytes/100 WBC (Bld)7.0 %Normal.Salem City HospitalComment on above:Order Comment: Reason for Exam HAV (hallux abducto valgus), rightPerformed By: #### CBC, BMP #### [facility] [address] [place] [address] USANeutrophils (Bld) [#/Vol]5.0 10*3/uLNormal1.8-7.7FFort Hamilton HospitalComment on above:Order Comment: Reason for Exam HAV (hallux abducto valgus), rightPerformed By: #### CBC, BMP #### [facility] [address] [place] [address] USANeutrophils/100 WBC (Bld)69.2 %Normal.Salem City HospitalComment on above:Order Comment: Reason for Exam HAV (hallux abducto valgus), rightPerformed By: #### CBC, BMP #### [facility] [address] [place] [address] USANRBC%0.2 /100{WBC}Normal0-0.5FFort Hamilton HospitalComment on above:Order Comment: Reason for Exam HAV (hallux abducto valgus), rightPerformed By: #### CBC, BMP #### [facility] [address] [place] [address] USAPlatelet mean volume (Bld) [Entitic vol]7.6 fLNormal 6.3-10.7FFort Hamilton HospitalComment on above:Order Comment: Reason for Exam HAV (hallux abducto valgus), rightPerformed By: #### CBC, BMP #### [facility] [address] [place] [id number] USAPlatelets (Bld) [#/Vol]212 10*3/oSRvkiqw180-884PprscdovmSalem City HospitalComment on above:Order Comment: Reason for Exam HAV (hallux abducto valgus), rightPerformed By: #### CBC, BMP #### [facility] [address] [place] [address] USARBC (Bld) [#/Vol]4.44 10*6/uLNormal3.60-5.00Salem City HospitalComment on above:Order Comment: Reason for Exam HAV (hallux abducto valgus), rightPerformed By: #### CBC, BMP #### [facility] [address] [place] [id number] USAWBC (Bld) [#/Vol]7.3 10*3/uLNormal3.8-11.6FFort Hamilton HospitalComment on above:Order Comment: Reason for Exam HAV (hallux abducto valgus), rightPerformed By: #### CBC, BMP #### [facility] [address] [place] [id number] USACreatinine and Glomerular filtration rate.predicted panel (S/P/Bld)Ordered By: Yordan Batres on 94-73-6396Ycnkrprvms [Mass/Vol]0.80 mg/dL 0.44-1.03Salem City HospitalECG 12 lead ECGon 93-18-2302DIB 12 lead [facility] [place] [address] [place] [address] Electrocardiograph Report Signed Patient: Claudette Ross MR#: [id number] 1278 : 1955 Acct:[id number] Age/Sex: 66 / F ADM Date: 03/11/22 Loc: XD Room: Type: [facility] Attending Dr: Yordan Batres DPM Ordering Provider: [...] By: MUS Signed By Laura Chavez MD 1801NormalSalem City HospitalEosinophils Auto (Bld) [#/Vol] Ordered By: Yordan Batres on 00-10-1526Zswpibrqrtj (Bld) [#/Vol]0.1 10*3/uL 0.0-0.45Salem City HospitalEosinophils/100 WBC Auto (Bld)Ordered By: Yordan Batres on 51-08-2415Qfvjmznehft/100 WBC (Bld)1.4 %.Salem City HospitalErythrocyte distribution width Auto (RBC) [Ratio]Ordered By: Yordan Batres on 34-44-2066Kalmmnxovhc distribution width (RBC) [Ratio]13.1 %11.9-15.3FFort Hamilton HospitalEstimated glomerular filtration rate (GFR) non- AmericanOrdered By: Yordan Batres on 71-87-1117IWO/1.73 sq M.predicted among non-blacks MDRD (S/P/Bld) [Vol rate/Area]> 60 mL/MinSalem City HospitalHematocrit Auto (Bld) [Volume fraction]Ordered By: Yordan Batres on 71-37-1724Dexxwpawnk (Bld) [Volume fraction]39.5 %34.0-46.4 [facility] City HospitalHemoglobin [Mass/volume] in BloodOrdered By: Yordan Batres on 57-25-9155Zcbhbolckl (Bld) [Mass/Vol]13.3 g/dL11.8-15.4 [facility] City HospitalLeukocytes [#/volume] corrected for nucleated erythrocytes in Blood by Automated counOrdered By: Yordan Batres on 03-11-2022 WBC corrected for nucl RBC Auto (Bld) [#/Vol]7.3 10*3/uL3.8-11.6FFort Hamilton HospitalLymphocytes Auto (Bld) [#/Vol]Ordered By: Yordan Batres on 96-25-2043Vhyfemdoyzk (Bld) [#/Vol]1.6 10*3/uL1.00-4.8Sal[facility] City HospitalLymphocytes/100 WBC Auto (Bld)Ordered By: Yordan Batres on 86-06-9342Vxawtzifmwa/100 WBC (Bld)22.0 %.[facility] HospitalH Auto (RBC) [Entitic mass]Ordered By: Yordan Batres on 92-26-8962WZA (RBC) [Entitic mass]30.0 pg24.7-34.3FFort Hamilton HospitalMCHC Auto (RBC) [Mass/Vol]Ordered By: Yordan Batres on 12-43-9122RSOC (RBC) [Mass/Vol]33.7 g/dL 32.0-35.0Salem City HospitalMCV Auto (RBC) [Entitic vol]Ordered By: Yordan Batres on 73-86-5360IEO (RBC) [Entitic vol]88.8 gM09-749DvdupdbziSalem City HospitalMonocytes Auto (Bld) [#/Vol]Ordered By: Yordan Batres on 82-28-0534Qlsryabph (Bld) [#/Vol]0.5 10*3/uL0.0-0.8Sal[facility] City HospitalMonocytes/100 WBC Auto (Bld)Ordered By: Yordan Batres on 03-11-2022 Monocytes/100 WBC (Bld)7.0 %.Sal[facility] City HospitalNeutrophils Auto (Bld) [#/Vol]Ordered By: Yordan Batres on 45-56-7348Udxutwqkbts (Bld) [#/Vol] 5.0 10*3/uL1.8-7.7FFort Hamilton HospitalNeutrophils/100 WBC Auto (Bld)Ordered By: Yordan Batres on 72-25-9878Dtulcakpnbz/100 WBC (Bld)69.2 %. Salem City HospitalNo Panel InformationOrdered By: Yordan Batres on 43-80-1095Phlklnaud GFR ()> 60 mL/MinSalem City HospitalComment on above:GFR estimated reference range: According to KDOQI guidelines, <60 ml/min/1.73m2 is sufficient todiagnose a patient with chronic kidney disease.Pharmacy Creatinine Clearance (ChemN/AFFort Hamilton HospitalNucleated erythrocytes [Presence] in Blood by Automated countOrdered By: Yordan Batres on 96-92-7718Oybsdyijo RBC Auto Ql (Bld)0.2 /100{WBC}0-0.5 Salem City HospitalPlatelet mean volume Auto (Bld) [Entitic vol] Ordered By: Yordan Batres on 11-38-6286Kbipgoza mean volume (Bld) [Entitic vol] 7.6 fL6.3-10.7FFort Hamilton HospitalPlatelets Auto (Bld) [#/Vol] Ordered By: Yordan Batres on 54-61-6934Otjfphddj (Bld) [#/Vol]212 10*3/uL 150-450Salem City HospitalRBC Auto (Bld) [#/Vol]Ordered By: Yordan Batres on 45-03-3034FXA (Bld) [#/Vol]4.44 10*6/uL3.60-5.00Memorial Health Systemerum or plasma anion gap determinationOrdered By: Yordan Batres on 72-49-3608Bymhy gap [Moles/Vol]11.2 mmol/L6.0-15.0Memorial Health Systemerum or plasma calcium measurement (mass/volume)Ordered By: Yordan Batres on 28-54-3253Kcfzczb [Mass/Vol]9.2 mg/dL8.2-10.2FKettering Memorial Hospitalerum or plasma chloride measurement (moles/volume) Ordered By: Yordan Batres on 96-64-4684Yrzhtuph [Moles/Vol]102 mmol/L95-114 Memorial Health Systemerum or plasma glucose measurement (mass/volume)Ordered By: Yordan Batres on 09-32-8678Gjdzpfb [Mass/Vol]99 mg/dL 70-100Salem City HospitalComment on above:ADA recommended reference rangeRandom Glucose Reference Range is dependent on time and content of last meal. Glucose of more than 200 mg/dL in a nonstressed, ambulatory subject supports the diagnosisof Diabetes Mellitus.Serum or plasma potassium measurement (moles/volume)Ordered By: Yordan Batres on 16-35-0314Hxfdqeqcs [Moles/Vol]4.2 mmol/L3.5-5.1FKettering Memorial Hospitalerum or plasma sodium measurement (moles/volume)Ordered By: Yordan Batres on 17-62-0320Ykrygb [Moles/Vol]136 mmol/U712-758AygspuuokMemorial Health Systemerum or plasma total carbon dioxide measurement (moles/volume)Ordered By: Yordan Batres on 60-29-6972AQ0 [Moles/Vol]27.0 mmol/L22.0-30.0[facility] Serum or plasma urea nitrogen measurement (mass/volume)Ordered By: Yordan Batres on 43-18-5381Utiv nitrogen [Mass/Vol]10 mg/dL9-23Sal[facility] City HospitalWBC Auto (Bld) [#/Vol]Ordered By: Yordan Batres on 98-11-4104CIX (Bld) [#/Vol]7.3 10*3/uL3.8-11.6FFort Hamilton HospitalXR chest 2V*on 03-35-4866IN chest 2V*[facility] [place] [address] XRay Report Signed Patient: Claudette Ross MR#: [id number] 1278 : 1955 Acct:[id number] Age/Sex: 66 / F ADM Date: 03/11/22 Loc: XD Room: Type: [facility] Attending Dr: Yordan Batres DPM Copies to: [...] Carmela Carlos M.D.03/11/2022 2:29 PM Dictation Location: [place] [address] Transcribed By: [facility] 03/11/22 142 Dictated By: Carmela Carlos MD 03/11/221427 Signed By: 03/11/22 142[facility] SouthLIPID PROFILEon 08-09-2021 CHOL-HDL RATIO NORMSEE [facility] Medical CenterComment on above:Result Comment: 3.3 - 4.4 LOW RISK 4.4 - 7.1 AVERAGE RISK 7.1 - 11.0 MODERATE RISK >11.0 HIGH RISKPerformed By: #### LIPID, AST, ALT #### [facility] [address] [place] [address] [address] Dedrick Moraesterol [Mass/Vol]195 mg/dLNormal<=200[facility] Comment on above:Performed By: #### LIPID, AST, ALT #### [facility] [address] [address] [address] Dedrick Moraesterol in HDL [Mass/Vol]47 mg/gNNxdzoh15-83QpcGrant HospitalComment on above:Performed By: #### LIPID, AST, ALT #### [facility] [address] [address] [address] Dedrick Moraesterol in LDL [Mass/Vol]130.0 mg/dLUniversity Hospitals Geneva Medical CenterComment on above:Performed By: #### LIPID, AST, ALT #### [facility] [address] [address] [address] Dedrick Balbuena.total/Cholesterol in HDL [Mass ratio]4.1 {ratio} NormalGrant HospitalComment on above:Performed By: #### LIPID, AST, ALT #### [facility] [address] [address] [address] Dedrick Bridges NORMAL> or = 60 mg/dl - LOW CARDIOVASCULAR RISK <40 mg/dl - HIGH CARDIOVASCULAR RISKUniversity Hospitals Geneva Medical CenterComment on above:Performed By: #### LIPID, AST, ALT #### [facility] [address] [address] [address] Dedrick KinseyLDL CALC NORMALSEE BELOWUniversity Hospitals Geneva Medical CenterComment on above:Result Comment: <100 mg/dl OPTIMAL 100 - 129 mg/dl NEAR OR ABOVE OPTIMAL 130 - 159 mg/dl BORDERLINE HIGH 160 - 189 mg/dl HIGH >190 mg/dl VERY HIGH Performed By: #### LIPID, AST, ALT #### [facility] [address] [address] [address] Dedrick KinseyTriglyceride [Mass/Vol]90 mg/dLNormal<=150[facility] Comment on above:Performed By: #### LIPID, AST, ALT #### [facility] [address] [place] [address] Dr. Dedrick KinseyVLDL CALC18.0 mg/dLUniversity Hospitals Geneva Medical CenterComment on above: Performed By: #### LIPID, AST, ALT #### [facility] [address] [place] [address] Dr. Dedrick Martin 82-06-7585RLI [Catalytic activity/Vol]16 U/YFfagje92-85VicGrant HospitalCombaraga county memorial hospital on above:Performed By: #### LIPID, AST, ALT #### [facility] [address] [place] [address] Dr. Dedrick Mosley 08-65-9789HOO [Catalytic activity/Vol]26 U/RHalsco77-38Jmj [facility] HospitalComment on above:Performed By: #### LIPID, AST, ALT #### [facility] [address] [place] [address] Dr. Dedrick KinseyMG MAMM SCREEN 3D GERARD CADon 04-28-4598HH MAMM SCREEN 3D GERARD CAD Patient: CLAUDETTE ROSS Exam Date: 06/24/2021 : 1955 Gender:F Ordering : RODNEY SOSA CNP Admission #: [id number] Family : Order #: [id number] CLICK HERE TO VIEW EXAM RADIOLOGY REPORT [...] pancreatic cancer at age 58. LOCATION: [facility] BREAST COMPOSITION: Scattered areas fibroglandular density. [...] by: Jackelin Tamayo MD on 06/24/2021 at 11:40University Hospitals Geneva Medical CenterXR DEXA BONE DENSITYon 95-77-7984MH DEXA BONE DENSITYDEXA Bone Density Study CLINICAL: Evaluate bone mineral density. Postmenopausal COMPARISON: None FINDINGS: The bone density study was assessed by dual-energy x-ray absorptiometry with the Nyxoah scanner. The test results are expressed in [...] Electronically authenticated by: JACKELIN BATRES Date: 2021-06-24 11:38[facility] Geneva Medical CenterXR Chest 2 Viewson 08-15-5593UD Chest 2 ViewsChest 2-Views CLINICAL INDICATION: follow up covid pneumonia, [...] Dictated DT/TM: 03/18/2021 5:31 pm Signed by: Heydi-Hamid MD, Emad Signed (Electronic Signature): 03/18/2021 5:32 pm (If Report Is Signed, Electronically Signed in Other Vendor System)Normal [facility].eGFRon 64-41-1308gBKC Non-AA>60Normal>=60 [facility] HospitalComment on above:Order Comment: Order added by Discern ruleResult Comment: Stages of Chronic Kidney Disease GFR Stage 3a [...] maximum of SCr/? or 1 age = yearsPerformed By: #### EGFR #### [address] [address]uKAT AA>60Normal>=60Providence HospitalComment on above:Order Comment: Order added by Discern ruleResult Comment: See comment. Performed By: #### EGFR #### [address] [address]BGV Initon 67-16-1724Zfrcqhw Mmmihmglm88.8 ng/mLNormal 14.3-65.8BMansfield HospitalComment on above:Performed By: #### AMI1 #### [address] [address]Cdjpvlk Troponin<0.71Cmslri5.00-0.03Providence HospitalComment on above:Result Comment: An increased Troponin-I value, in the absence of myocardial ischemia, may indicate other etiologies of cardiac damage. Performed By: #### AMI1 #### [address] [address]XZI w/ Diffon 95-84-4037Dmtzcqpmaqw distribution width (RBC) [Ratio]13.1 %Agecrt61.6-14.8BMansfield HospitalComment on above: Performed By: #### CBC #### [address] [address]Tjxzspsums (Bld) [Volume fraction]37.4 %Hdqvtp30.0-46.0 [facility] HospitalComment on above:Performed By: #### CBC #### [address] [address]Arqegdkkiv (Bld) [Mass/Vol]13.1 g/bLAoqjrg30.0-16.0Providence HospitalComment on above:Performed By: #### CBC #### [address] [address]FRX (RBC) [Entitic mass]30.2 stWffuxr76.0-35.0Providence HospitalComment on above:Performed By: #### CBC #### [address] [address]GVKO09.0 %Wrwkqs68.0-37.0Providence HospitalComment on above:Performed By: #### CBC #### [address] [address]APU (RBC) [Entitic vol]86.2 uMBimmhf37.0-100.0Providence HospitalComment on above:Performed By: #### CBC #### [address] [address]Cnzfedfh178 x10*3/vlELurgeq196-685OfnjxwuqgProvidence HospitalComment on above:Performed By: #### CBC #### [address] [address]Ehhbacsc mean volume (Bld) [Entitic vol]7.4 fLLow7.5-11.5 [facility] HospitalComment on above:Performed By: #### CBC #### [address] [address]YLD8.34 x10*6/mcLNormal3.80-5.20[facility] Comment on above:Performed By: #### CBC #### [address] [address]NIQ8.0 x10*3/mcLNormal4.5-11.0[facility] Comment on above:Performed By: #### CBC #### [address] [address]GPUjd 49-59-8768Sukylla [Mass/Vol]3.6 g/dLLow3.7-5.3BMansfield HospitalComment on above:Performed By: #### COMP #### [address] [address]Jxcsacx/Globulin [Mass ratio]1.2 {ratio}Normal1.1-2.2BMansfield HospitalComment on above:Performed By: #### COMP #### [address] [address]Gnz Phos68 IU/CVomebm07-378ZowdlssduProvidence Hospital Comment on above:Performed By: #### COMP #### [address] [address]BUR [Catalytic activity/Vol]21 U/LNormal7-52Providence HospitalComment on above:Performed By: #### COMP #### [address] [address]Adtjf gap [Moles/Vol]11 mmol/LNormal7-17Providence HospitalComment on above:Performed By: #### COMP #### [address] [address]WXK [Catalytic activity/Vol]19 U/EFuhxsy59-49OwgiclrbgProvidence HospitalComment on above:Performed By: #### COMP #### [address] [address]Nwev Total0.8 mg/dLNormal0.3-1.0[facility] Comment on above:Performed By: #### COMP #### [facility] [address] [place], [place] [address]Cjzmvsn [Mass/Vol]8.9 mg/dLNormal8.6-10.3BMansfield HospitalComment on above:Performed By: #### COMP #### [facility] [address] [place], [place] [address]Gzzngnio320 IU/ILcuphl38-105BzirthnkaProvidence Hospital Comment on above:Performed By: #### COMP #### [facility] [address] [place], [place] [address]BJ5 [Moles/Vol]27 mmol/IIzmcmi02-47FkghbxdfkProvidence HospitalComment on above:Performed By: #### COMP #### [address] [address]Ufqchmkktt [Mass/Vol]0.7 mg/dLNormal0.6-1.2BMansfield HospitalComment on above:Performed By: #### COMP #### [address] [address]Afxowei [Mass/Vol]105 mg/jONpvd88-89XxohfyiojProvidence HospitalComment on above:Performed By: #### COMP #### [address] [address]Teucrgdfo [Moles/Vol]3.4 mmol/LNormal3.4-4.8BMansfield HospitalComment on above:Performed By: #### COMP #### [address] [address]Bfjlxxs [Mass/Vol]6.6 g/dLNormal6.0-8.3BMansfield HospitalComment on above:Performed By: #### COMP #### [address] [address]Racwcp [Moles/Vol]140 mmol/DTfiiio543-370EoehxpfgbProvidence HospitalComment on above:Performed By: #### COMP #### [address] [address]Dpgz nitrogen [Mass/Vol]10 mg/dLNormal7-25Providence HospitalComment on above:Performed By: #### COMP #### [address] [address]Bsyd nitrogen/Creatinine [Mass ratio]14.3 mg/ytLqivfx41.0-20.0 [facility] HospitalComment on above:Performed By: #### COMP #### [address] [address]KUU53 Rapidon 03-01-8274Cpexxszt in healthcare?NoNormal Providence HospitalComment on above:Performed By: #### CD:[id number] #### [address] [address]Ueeek care resident?NoNormalProvidence Hospital Comment on above:Performed By: #### CD:[id number] #### [address] [address]Kz ICU?NoNSCCI Hospital LimaComment on above: Performed By: #### CD:[id number] #### [address] [address]Lgxxgbjaf status?Not NoSelect Medical Cleveland Clinic Rehabilitation Hospital, AvonComment on above:Performed By: #### CD:[id number] #### [address] [address]Puylbj for Rapid TestCOVID ExposureNoSelect Medical Cleveland Clinic Rehabilitation Hospital, AvonComment on above:Performed By: #### CD:[id number] #### [address] [address]WRMK-VaG-6 (COVID-19) RNA JAYY+probe Ql (Unsp spec)Positive Critically abnormalNegativeProvidence HospitalComment on above:Result Comment: Test completion time: 1554 Called date and time: 01/26/2021 15:54:14 EST Result called to and read back by: LINDA SALAS RN, [facility] (First, Last, Title, Location) The 2019 [...] using the ID NOW COVID-19 test by [employer], which has received Emergency Use Authorization (EUA) [...] following links: Fact Sheet for HealthCare Providers: https://www.fda.gov/media/653634/download Fact Sheet for Patients: https://www.fda.gov/media/615506/downloadPerformed By: #### CD:[id number] #### [address] [address]UPMZ-KvA-2 (COVID-19) RNA JAYY+probe Ql (Unsp spec)NoNormal Providence HospitalComment on above:Performed By: #### CD:[id number] #### [address] [address]Cdouhxzjktz as defined by CDC?YesNormalBlUniversity Hospitals TriPoint Medical CenterComment on above:Performed By: #### CD:[id number] #### [address] [address]Jlsm Autoon 83-73-6772Skro Absolute0.0 x10*3/mcLNormal0.0-0.2 Providence HospitalComment on above:Performed By: #### .Automated Diff #### [address] [address]Graybgccw/100 WBC (Bld)0.4 %Normal0.0-1.5Bl[facility] Valley Health SystemComment on above:Performed By: #### .Automated Diff #### [address] [address]Pib Absolute0.1 x10*3/mcLNormal0.0-0.4BMansfield HospitalComment on above:Performed By: #### .Automated Diff #### [address] [address]Wfywzwfwocv/100 WBC (Bld)1.3 %Normal0.0-5.4BMansfield HospitalComment on above:Performed By: #### .Automated Diff #### [address] [address]Udzkg Absolute1.0 x10*3/mcLNormal1.0-4.8BMansfield HospitalComment on above:Performed By: #### .Automated Diff #### [address] [address]Pntesdltxex/100 WBC (Bld)19.2 %Low27.2-40.8BMansfield HospitalComment on above:Performed By: #### .Automated Diff #### [address] [address]Idfc Absolute0.6 x10*3/mcLNormal0.1-1.1BMansfield HospitalComment on above:Performed By: #### .Automated Diff #### [address] [address]Qizygxapg/100 WBC (Bld)12.4 %High3.7-11.9BMansfield HospitalComment on above:Performed By: #### .Automated Diff #### [address] [address]Zsnjng Absolute3.3 x10*3/mcLNormal1.8-7.7BMansfield HospitalComment on above:Performed By: #### .Automated Diff #### [address] [address]Bkskvz Auto66.7 %Waluqz81.2-70.8BMansfield Hospital Comment on above:Performed By: #### .Automated Diff #### [address] [address]BH Clinical Summaryon 53-80-2420XH Clinical Summary [address] [address] ED Clinical Summary Person Information Name: Claudette Ross [place] Age: 65 Years : 1955 Sex: Female PCP: Nidhi Michaels MD Marital Status: Single Phone: Race: White Ethnicity: Not or Language: [place] Visit Reason: Chest pain; Chest pain - Cardiac Acuity: 3 Enc Type: Emergency Med Service: Emergency Medicine Arrival: 01/26/2021 13:48:22 Discharge: 01/26/2021 17:06:00 LOS: 000 03:18 Checkin: 01/26/2021 13:48:22 Checkout: 01/26/2021 17:06:00 Dispo Type: Home or Self Care Address: [address] [place], [place] [id number] Provider Notes: Diagnosis: 1:Pneumonia due to COVID-19 [...] range between ( 27.2 and 40.8 ) [place] Auto: 12.4 % -- Normal range between [...] range between ( 36.0 and 46.0 ) [place] Absolute: 0.6 x10 MCH: 30.2 pg -- [...] This Visit Final Med List: New Medications [facility]/pharmacy #[id number], [address], [place] [id number], [phone] hydrocodone-acetaminophen ([place] 5 mg-325 mg oral tablet) 1 Tabs [...] 2 times a day. Last Dose: [id number], [address], [place] [id number], [phone] hydrocodone-acetaminophen ([place] 5 mg-325 mg oral tablet) 1 Tabs [...] Role Assigned Unassigned Chandni (more content not included)...[facility] HospitalED Note-Physicianon 67-15-6595KV Note-PhysicianChief Complaint Chest pain started 3 weeks ago. [...] then was sent home with instructions for COVID- 19 and was given pulse ox to monitor. The patient was told to follow-up with her primary care provider as needed or return to the ER if her condition is worsening. Assessment/Plan 1. Pneumonia due to COVID-19 virus Ordered: hydrocodone-acetaminophen, 1 tabs, Oral, q4hr, PRN, X 3 days, # 18 tabs, 0 Refill(s), 01/29/21 17:00:00 EST, Pharmacy: [facility] #[id number] 2. Acute chest wall pain Ordered: hydrocodone-acetaminophen, 1 tabs, Oral, q4hr, PRN, X 3 days, # 18 tabs, 0 Refill(s), 01/29/21 17:00:00 EST, Pharmacy: [facility] #[id number] Orders: predniSONE, See Instructions, 6-5-4-3-2-1, # 21 tabs, 0 Refill(s), Pharmacy: [facility] #[id number] [address] - ED Professional Level 4 Discharge Patient Refresh vitals and sections below: Problem List/Past Medical History Ongoing Depression Hypertension Hypothyroid Historical No qualifying data Procedure/Surgical History Elbow Foot Hysterectomy Neck Medications Inpatient No active inpatient medications Home [place] 5 mg-325 mg oral tablet, 1 tabs, [...] 66.7 Lymph Auto 01/26/21 14:14 19.2 Low [place] Auto 01/26/21 14:14 12.4 High Eos Auto 01/26/21 14:14 1.3 Basophil Auto 01/26/21 14:14 0.4 Neutro Absolute 01/26/21 14:14 3.3 Lymph Absolute 01/26/21 14:14 1.0 [place] Absolute 01/26/21 14:14 0.6 Eos Absolute 01/26/21 14:14 0.1 Baso Absolute 01/26/21 14:14 0.0 Routine Chemistry LATEST RESULTS Sodium Lvl 01/26/21 14:14 140 Potassium Lvl 01/26/21 14:14 3.4 Chloride 01/26/21 14:14 105 CO2 01/26/21 14:14 27 Anion Gap 01/26/21 14:14 11 Glucose Lvl 01/26/21 14:14 105 High BUN 01/26/21 14: (more content not included)...NormalProvidence Hospital TSH reflex Free T4on 24-92-6961NHY reflex Free T41.935 mcIU/mLNormal0.490-4.670 [facility] HospitalComment on above:Performed By: #### L404.9100, L404.7150, L400.0065 #### Main Laboratory ([facility]) [address] [place] [address] Arnulfo Little MDVitamin B12on 44-43-9105Wwyahpzmz (Vitamin B12) [Mass/Vol]135 pg/zXWfx283-657LpmtMartins Ferry HospitalComment on above:Result Comment: B12 level of 145 - 180 is considered Indeterminate and level of <145 is considered Deficient.Performed By: #### L404.9100, L404.7150, L400.0065 #### Main Laboratory ([facility]) [address] [place] [address] Arnulfo Little MDVitamin D,25-hydroxy (Total)on ([place]) Vitamin D,Total 28.50 ng/mLLow30.00-100.00Mart[facility] Ferry HospitalComment on above:Result Comment: Optimal values are established by the Clinical Guidelines Subcommittee of the Endocrine Society Task Force. (Journal of Clinical Endocrinology & Metabolism,2011;96) Status Vitamin D Concentration Range ------- Deficient <20 Insufficient 20 - 30 Sufficient 30 - 100Performed By: #### L404.9100, L404.7150, L400.0065 #### Main Laboratory ([facility]) [address] [place] [address] Arnulfo Little MDVitamin D,1,25-Dihydroxyon 43-85-1207Vqeygru D,1,25-Enlawtipu29 pg/nSLcwvjn06-30JfqmMartins Ferry HospitalCombaraga county memorial hospital on above:Result Comment: ADDITIONAL INFORMATION This test was developed and its performance characteristics determined by [facility] in a manner consistent with CLIA requirements. This test has not been cleared or approved by the U.S. Food and Drug Administration. Test Performed by: [facility] - [facility] [address], [place] [address] Senior Hr Manager: Rakan Kim M.D. Ph.D.; CLIA# [id number] By: #### L922.1720 #### [facility] [address] [place], [place] [address]BOD with Differentialon 51-87-1938Rbb Baso Count0 /cmmNormal 0-200Martins Ferry HospitalComment on above:Performed By: #### L100.0000 #### Main Laboratory ([facility]) [address] [place], [facility]04 Arnulfo Sidney, MDAbs Eos Wtmzs925 /cmmNormal0-500[facility] Comment on above:Performed By: #### L100.0000 #### Main Laboratory ([facility]) [address] [place], [facility]04 Arnulfo Sidney, MDAbs Lymph Xlusv4175 /husFbfwan8372-3443DjhwMartins Ferry HospitalComment on above:Performed By: #### L100.0000 #### Main Laboratory ([facility]) [address] [place], [facility]04 Arnulfo Sidney, MDAbs [place] Rbxcd792 /cmmNormal0-800[facility] Comment on above:Performed By: #### L100.0000 #### Main Laboratory ([facility]) [address] [place], [facility]04 Arnulfo Sidney, MDAbs Neut Oxnls2910 /wwsUcalyx6865-6864DvieMartins Ferry HospitalComment on above:Performed By: #### L100.0000 #### Main Laboratory ([facility]) [address] [place], [facility]04 Arnulfo Little, MDBasophils/100 WBC (Bld)0.5 %Normal0-2LMercy Health [facility] Hospital Comment on above:Performed By: #### L100.0000 #### Main Laboratory ([facility]) [address] [place], [facility]04 Arnulfoed Little, MDEOS-Auto Diff1.5 %Normal0-6Mart[facility] Ferry HospitalComment on above:Performed By: #### L100.0000 #### Main Laboratory ([facility]) [address] [place], [facility]04 Arnulfo Little, Erythrocyte distribution width (RBC) [Ratio]13.7 %Normal 12.0-16.0Mart[facility] Ferry HospitalComment on above:Performed By: #### L100.0000 #### Main Laboratory ([facility]) [address] [place], [facility]04 Arnulfo Little MDHematocrit (Bld) [Volume fraction]39.3 %Flqqlr41.0-44.0Mart[facility] Ferry HospitalComment on above:Performed By: #### L100.0000 #### Main Laboratory ([facility]) [address] [place], [place] [address] Arnulfo Little MDHemoglobin (Bld) [Mass/Vol]13.7 g/zROtfqoy71.0-15.0[facility] Ferry HospitalComment on above:Performed By: #### L100.0000 #### Main Laboratory ([facility]) [address] [place], [place] [address] Arnulfo Little MDLymphocytes/100 WBC (Bld)25.3 %Wqjjkh11-97OlrgMartins Ferry HospitalComment on above:Performed By: #### L100.0000 #### Main Laboratory ([facility]) [address] [place], [facility]04 Arnulfo Little, MDMCH (RBC) [Entitic mass]30.9 jdVvibvo43.5-33.0Mart[facility] Ferry HospitalComment on above:Performed By: #### L100.0000 #### Main Laboratory ([facility]) [address] [place], [facility]04 Arnulfode Little, MDMCHC (RBC) [Mass/Vol]34.9 g/jUGusanu42.0-36.0Mart[facility] Ferry HospitalComment on above:Performed By: #### L100.0000 #### Main Laboratory ([facility]) [address] [place], [facility]04 Arnulfo Little, MDMCV88.6 CU IHIWsomdl36-88HvtqMartins Ferry HospitalComment on above:Performed By: #### L100.0000 #### Main Laboratory ([facility]) [address] [place] [address] Arnulfoed Little, MDMono- Auto Diff6.8 %Normal2-10Mart[facility] Ferry HospitalComment on above:Performed By: #### L100.0000 #### Main Laboratory ([facility]) [address] [place] [address] Arnulfo Little, MDNeut-Auto Diff65.9 %Pycjip53-74JlkuMartins Ferry Hospital Comment on above:Performed By: #### L100.0000 #### Main Laboratory ([facility]) [address] [place] [address] Arnulfoed Little, MDNRBC-Auto0.1 /100 WBCNormal<1LMercy Health Perrysburg HospitalComment on above:Performed By: #### L100.0000 #### Main Laboratory ([facility]) [address] [place] [address] Arnulfoed Little, MDPlatelet Xlbyi490 th/uftQwlmgz030-025BindMartins Ferry Hospital Comment on above:Performed By: #### L100.0000 #### Main Laboratory ([facility]) [address] [place] [address] Arnulfoed Little, MDRBC4.44 mil/cmmNormal4.00-5.10Mart[facility] Ferry HospitalComment on above:Performed By: #### L100.0000 #### Main Laboratory ([facility]) [address] [place] [address] Arnulfoed Little, MDWBC5.9 th/cmmNormal4.4-10.5Mart[facility] Ferry HospitalComment on above:Performed By: #### L100.0000 #### Main Laboratory ([facility]) [address] [place] [address] Arnulfoed Little, MDComprehensive Metabolic Panelon 52-93-5710Iriknke [Mass/Vol]3.9 g/dLNormal3.5-5.0[facility] on above:Order Comment: Is Patient Fasting? YesPerformed By: #### L400.0076, L400.0400 #### Main Laboratory ([facility]) [address] [place], [facility]04 Arnulfo Sidney, MDAlbumin/Globulin [Mass ratio]1.3 {ratio}Low1.5-2.5[facility] on above:Order Comment: Is Patient Fasting? YesPerformed By: #### L400.0076, L400.0400 #### Main Laboratory ([facility]) [address] [place], [facility]04 Arnulfo Sidney, MDAlk Phos83 IU/SRfpskq73-412IdavMarietta Osteopathic Clinic on above:Order Comment: Is Patient Fasting? YesPerformed By: #### L400.0076, L400.0400 #### Main Laboratory ([facility]) [address] [place], [facility]04 Arnulfo Sidney, MDALT [Catalytic activity/Vol]16 U/XOxqlmx08-48YgfkMarietta Osteopathic Clinic on above:Order Comment: Is Patient Fasting? YesPerformed By: #### L400.0076, L400.0400 #### Main Laboratory ([facility]) [address] [place] [address] Arnulfo Sidney, MDAnion gap [Moles/Vol]8 mmol/LNormal4-12[facility] on above:Order Comment: Is Patient Fasting? YesPerformed By: #### L400.0076, L400.0400 #### Main Laboratory ([facility]) [address] [place] [address] Arnulfo Sidney, MDAST [Catalytic activity/Vol]15 U/QTsfrwz05-17OcibMarietta Osteopathic Clinic on above:Order Comment: Is Patient Fasting? YesPerformed By: #### L400.0076, L400.0400 #### Main Laboratory ([facility]) [address] [place] [address] Arnulfo Little MDBili,Total0.6 mg/dLNormal0.2-1.0[facility] Comment on above:Order Comment: Is Patient Fasting? YesPerformed By: #### L400.0076, L400.0400 #### Main Laboratory ([facility]) [address] [place] [address] Arnulfo Sidney, MDCalcium [Mass/Vol]9.20 mg/dLNormal8.8-10.5Mart[facility] Ferry HospitalComment on above:Order Comment: Is Patient Fasting? YesPerformed By: #### L400.0076, L400.0400 #### Main Laboratory ([facility]) [address] [place] [address] Arnulfo Sidney, MDChloride [Moles/Vol]105 mmol/DFueecm592-590PnvoMartins Ferry HospitalComment on above:Order Comment: Is Patient Fasting? YesPerformed By: #### L400.0076, L400.0400 #### Main Laboratory ([facility]) [address] [place] [address] Arnulfo Sidney, MDCO2 [Moles/Vol]29 mmol/GCptxhg85-56AyycMartins Ferry Hospital Comment on above:Order Comment: Is Patient Fasting? YesPerformed By: #### L400.0076, L400.0400 #### Main Laboratory ([facility]) [address] [place] [address] Arnulfo Sidney, MDCreatinine [Mass/Vol]0.85 mg/dLNormal0.60-1.30Mart[facility] Ferry HospitalComment on above:Order Comment: Is Patient Fasting? YesPerformed By: #### L400.0076, L400.0400 #### Main Laboratory ([facility]) [address] [place] [address] Arnulfo Little MDGFR Calculation> 60NormalLima Trinity Health SystemComment on above:Order Comment: Is Patient Fasting? YesResult Comment: Chronic Kidney Disease stages by NKDF Stage eGFR I >90 II 60-89 III 30-59 IV 15-29 V <15 or dialysis AGE(years) AVERAGE GFR 60-69 85 ml/min/1.73 square meters Note:This result is normalized to 1.73 square meter body surface area. Height and weight are not factored.Performed By: #### L400.0076, L400.0400 #### Main Laboratory ([facility]) [address] [place] [address] Arnulfo Little, MDGlucose [Mass/Vol]100 mg/bVDqlasr84-290KxdbMarietta Osteopathic Clinic on above:Order Comment: Is Patient Fasting? YesResult Comment: *This reference range applies to fasting specimens only.Performed By: #### L400.0076, L400.0400 #### Main Laboratory ([facility]) [address] [place] [address] Arnulfoed Little, MDPotassium [Moles/Vol]3.7 mmol/LNormal3.6-5.0[facility] on above:Order Comment: Is Patient Fasting? YesPerformed By: #### L400.0076, L400.0400 #### Main Laboratory ([facility]) [address] [place] [address] Arnulfo Sidney, MDProtein [Mass/Vol]6.8 g/dLNormal6.2-8.0[facility] on above:Order Comment: Is Patient Fasting? YesPerformed By: #### L400.0076, L400.0400 #### Main Laboratory ([facility]) [address] [place] [address] Arnulfo Sidney, MDSodium [Moles/Vol]142 mmol/PVrppxo709-910TcqqMarietta Osteopathic Clinic on above:Order Comment: Is Patient Fasting? YesPerformed By: #### L400.0076, L400.0400 #### Main Laboratory ([facility]) [address] [place] [address] Arnulfo Little MDUrea nitrogen [Mass/Vol]10 mg/dLNormal7-20[facility] on above:Order Comment: Is Patient Fasting? YesPerformed By: #### L400.0076, L400.0400 #### Main Laboratory ([facility]) [address] [place] [address] Arnulfo Little MDLipid Panelon 98-54-2352Prnm/HDL Risk4.7Opsycd6.0-4.4[facility] on above:Order Comment: Is Patient Fasting? Yes Performed By: #### L400.0076, L400.0400 #### Main Laboratory ([facility]) [address] [place] [address] Arnulfo Little, MDCholesterol [Mass/Vol]160 mg/dLNormal<200[facility] on above:Order Comment: Is Patient Fasting? YesPerformed By: #### L400.0076, L400.0400 #### Main Laboratory ([facility]) [address] [place] [address] Anrulfo Little, MDCholesterol in HDL [Mass/Vol]40 mg/dLNormUpper Valley Medical CenterCombaraga county memorial hospital on above:Order Comment: Is Patient Fasting? YesResult Comment: The National Cholesterol Education Program (NCEP) has set the following guidelines (reference values) for cholesterol, HDL: Low: <40 mg/dL Normal: 40-60 mg/dL High: >60 mg/dLPerformed By: #### L400.0076, L400.0400 #### Main Laboratory ([facility]) [address] [place] [address] Arnulfoed Little, MDCholesterol in LDL [Mass/Vol]104 mg/dLMercy Memorial HospitalComment on above:Order Comment: Is Patient Fasting? YesResult Comment: The National Cholesterol Education Program (NCEP) has set the following guidelines (reference values) for cholesterol, LDL: Desirable (optimal): <100 mg/dL Low Risk (near optimal): 100-129 mg/dL Borderline high: 130-159 mg/dL High: 160-189 mg/dL Very high: >=190 mg/dLPerformed By: #### L400.0076, L400.0400 #### Main Laboratory ([facility]) [address] [place] [address] AMENA Fuchsholesterol in VLDL [Mass/Vol]20 mg/dLNormal<39Mart[facility] Ferry HospitalComment on above:Order Comment: Is Patient Fasting? YesPerformed By: #### L400.0076, L400.0400 #### Main Laboratory ([facility]) [address] [place] [address] Arnulfo Little MDdLDL/HDL RISK2.6Normal<3.1LMercy Health Perrysburg HospitalComment on above:Order Comment: Is Patient Fasting? YesPerformed By: #### L400.0076, L400.0400 #### Main Laboratory ([facility]) [address] [place] [address] Arnulfo Little MDTriglyceride [Mass/Vol]102 mg/dLNormal<150Mart[facility] Ferry HospitalComment on above:Order Comment: Is Patient Fasting? YesPerformed By: #### L400.0076, L400.0400 #### Main Laboratory ([facility]) [address] [place] [address] Arnulfo Little MDBASI METABOLIC PANELon 50-92-4728Zzvbxza [Mass/Vol]8.8 mg/dL Normal8.6-10.3The [facility] Medical CenterComment on above:Order Comment: No: Do not add to previous drawPerformed By: #### 51239, 95050, 50938, 96340 #### [facility] [address] [place] [address], USAChloride [Moles/Vol]106 mmol/FZbmryi67-476Pjn [facility] CenterComment on above:Order Comment: No: Do not add to previous drawPerformed By: #### 07104, 80997, 32021, 00441 #### [facility] [address] [place] [address], USACO2 [Moles/Vol]30 mmol/LOwpufh20-84Ydy [facility] CenterComment on above:Order Comment: No: Do not add to previous draw Performed By: #### 62344, 01612, 57028, 31402 #### [facility] [address] [place] [address], USACreatinine [Mass/Vol]0.80 mg/dLNormal0.60-1.20The [facility] CenterComment on above:Order Comment: No: Do not add to previous drawPerformed By: #### 03364, 00086, 41529, 70320 #### [facility] [address] [place] [address], USAGFR/1.73 sq M predicted among blacks MDRD (S/P/Bld) [Vol rate/Area]mL/min/{1.73_m2}Normal>60The [facility] Comment on above:Order Comment: No: Do not add to previous drawPerformed By: #### 18175, 17038, 84210, 47702 #### [facility] [address] [place] [address], USAGFR/1.73 sq M predicted among non-blacks MDRD (S/P/Bld) [Vol rate/Area]mL/min/{1.73_m2}Normal>60The [facility] Comment on above:Order Comment: No: Do not add to previous drawPerformed By: #### 78584, 73662, 29503, 61601 #### [facility] [address] [place] [address], USAGlucose [Mass/Vol]102 mg/cRPtpb16-482Wae [facility] CenterComment on above:Order Comment: No: Do not add to previous drawPerformed By: #### 90052, 81412, 02201, 75751 #### [facility] [address] [place] [address], USAPotassium [Moles/Vol]3.9 mmol/LNormal3.5-5.1The [facility] Medical CenterComment on above:Order Comment: No: Do not add to previous drawPerformed By: #### 45491, 33667, 84327, 24676 #### [facility] [address] [facility] [place] [address], USASodium [Moles/Vol]140 mmol/WHfbltu037-428Umm [facility] CenterComment on above:Order Comment: No: Do not add to previous drawPerformed By: #### 75981, 82960, 54532, 48081 #### [facility] [address] [place] [address], USAUrea nitrogen [Mass/Vol]12 mg/dLNormal7-25The [facility] CenterComment on above:Order Comment: No: Do not add to previous drawPerformed By: #### 94731, 10949, 76097, 44964 #### [facility] [address] [facility] [place] [address], USACBC COMPLETE BLOOD COUNTon 42-46-5835Uzyleyrgnsc distribution width (RBC) [Ratio]13.2 %Ndhunj22.5-15.0The [facility] Medical CenterComment on above:Order Comment: No: Do not add to previous draw Performed By: #### 13012 #### [facility] [address] [facility] [place] [address], USAHematocrit (Bld) [Volume fraction]38.1 %Wbactp24.0-45.0The [facility] CenterComment on above:Order Comment: No: Do not add to previous drawPerformed By: #### 43656 #### [facility] [address] [place] [address], [facility] CENTERHemoglobin (Bld) [Mass/Vol]12.2 g/tXLknmwt70.0-15.0The [facility] CenterComment on above:Order Comment: No: Do not add to previous drawPerformed By: #### 64557 #### [facility] [address] [place] [address], [facility] (RBC) [Entitic mass]29.5 dxEnqlju28.0-33.0The [facility] CenterComment on above:Order Comment: No: Do not add to previous drawPerformed By: #### 47287 #### [facility] [address] [place] [address], [facility] (RBC) [Mass/Vol]32.0 g/dFMuqqmb18.0-35.0The [facility] CenterComment on above:Order Comment: No: Do not add to previous drawPerformed By: #### 02577 #### [facility] [address] [facility] [place] [address], [facility] (RBC) [Entitic vol]92.0 tMQddzwn64.0-98.0The [facility] CenterComment on above:Order Comment: No: Do not add to previous drawPerformed By: #### 40574 #### [facility] [address] [place] [address], [facility] CENTERNucleated RBC/100 WBC (Bld) [Ratio]0 %Normal0-0The [facility] CenterComment on above:Order Comment: No: Do not add to previous drawPerformed By: #### 31403 #### [facility] [address] [place] [address], USAPLAT LBO015 10*3/iTKifntx938-651Ohy [facility] CenterComment on above:Order Comment: No: Do not add to previous draw Performed By: #### 74652 #### [facility] [address] [place] [address], USARBC (Bld) [#/Vol]4.14 10*6/uLNormal3.80-5.00The [facility] CenterComment on above:Order Comment: No: Do not add to previous drawPerformed By: #### 27708 #### [facility] [address] [place] [address], USAWBC (Bld) [#/Vol]6.23 10*3/uLNormal4.00-10.60The [facility] CenterComment on above:Order Comment: No: Do not add to previous drawPerformed By: #### 07629 #### [facility] [address] [place] [address], USALIPID PROFILEon 85-77-5389Cdkhgdpmuvy [Mass/Vol]151 mg/dL Zfztbm720-927Lsc [facility] CenterComment on above:Order Comment: No: Do not add to previous drawResult Comment: CHOLESTEROL REFERENCE RANGE: 20 YEARS AND OLDER CARDIOVASCULAR RISK Less than 200 mg/dl Low Risk 200 to 239 mg/dl Borderline Risk 240 mg/dl and greater High RiskPerformed By: #### 93198, 61392 #### [facility] [address] [place] [address], USACholesterol in HDL [Mass/Vol]39 mg/dBIinaoh40-66Jjr [facility] CenterComment on above:Order Comment: No: Do not add to previous drawResult Comment: Slight variation in normal range could be due to gender and/or age. HDL CHOLESTEROL REFERENCE RANGE: 20 years and older Cardiovascular Risk > or =60 mg/dL Desirable 40 TO 59 mg/dL Low Risk <40 mg/dL High RiskPerformed By: #### 75468, 14143 #### [facility] [address] [place] [address], USACholesterol in LDL [Mass/Vol]90 mg/dLNormal0-130The [facility] CenterComment on above:Order Comment: No: Do not add to previous drawResult Comment: LDL IS A CALCULATION LDL IS ONLY VALID IF THE TRIG IS LESS THAN 400.Performed By: #### 16418, 51581 #### [facility] [address] [place] [address], USACholesterol.total/Cholesterol in HDL [Mass ratio]3.9 {ratio}Normal0.0-4.5The [facility] Medical CenterComment on above: Order Comment: No: Do not add to previous drawPerformed By: #### 61374, 84913 #### [facility] [address] [facility] [place] [address], USANON-HDL QNDLKOMQUXS178 mg/dLNormalThe [facility] CenterComment on above:Order Comment: No: Do not add to previous draw Performed By: #### 61009, 10836 #### [facility] [address] [facility] [place] [address], USATriglyceride [Mass/Vol]110 mg/pXNaoezg42-289Sdw [facility] CenterComment on above:Order Comment: No: Do not add to previous drawResult Comment: TRIGLYCERIDE REFERENCE RANGE: 20 YEARS AND OLDER CARDIOVASCULAR RISK LESS THAN 150 mg/dl LOW RISK 150 TO 199 mg/dl BORDERLINE RISK 200 mg/dl AND GREATER HIGH RISKPerformed By: #### 13415, 77575 #### [facility] [address] [facility] [place] [address], USAVLDL CHOL22 mg/dLNormal0-40The [facility] CenterComment on above:Order Comment: No: Do not add to previous drawPerformed By: #### 85293, 47854 #### [facility] [address] [facility] [place] [address], USABASIC METABOLIC PANELon 96-05-7519Wlarzpv [Mass/Vol]8.8 mg/dLNormal8.6-10.3The [facility] CenterComment on above:Order Comment: No: Do not add to previous drawPerformed By: #### 90091, 25129, 74600, 37310 #### [facility] [address] [place] [address], USAChloride [Moles/Vol]107 mmol/XMwryte88-580Vlu [facility] CenterComment on above:Order Comment: No: Do not add to previous drawPerformed By: #### 59336, 35727, 36636, 14243 #### [facility] [address] [place] [address], USACO2 [Moles/Vol]26 mmol/ETwqhkc72-76Bqz [facility] CenterComment on above:Order Comment: No: Do not add to previous draw Performed By: #### 77764, 84929, 25130, 58070 #### [facility] [address] [place] [address], USACreatinine [Mass/Vol]0.87 mg/dLNormal0.60-1.20The [facility] CenterComment on above:Order Comment: No: Do not add to previous drawPerformed By: #### 62784, 62378, 96636, 17588 #### [facility] [address] [place] [address], USAGFR/1.73 sq M predicted among blacks MDRD (S/P/Bld) [Vol rate/Area]mL/min/{1.73_m2}Normal>60The [facility] Comment on above:Order Comment: No: Do not add to previous drawPerformed By: #### 05540, 45045, 68123, 04897 #### [facility] [address] [place] [address], USAGFR/1.73 sq M predicted among non-blacks MDRD (S/P/Bld) [Vol rate/Area]mL/min/{1.73_m2}Normal>60The [facility] Comment on above:Order Comment: No: Do not add to previous drawPerformed By: #### 15423, 40368, 02431, 79295 #### [facility] [address] [place] [address], USAGlucose [Mass/Vol]118 mg/iTHtzb88-442Jpa [facility] CenterComment on above:Order Comment: No: Do not add to previous drawPerformed By: #### 85014, 17836, 41162, 09744 #### [facility] [address] [place] [address], USAPotassium [Moles/Vol]4.0 mmol/LNormal3.5-5.1The [facility] Medical CenterComment on above:Order Comment: No: Do not add to previous drawPerformed By: #### 14698, 09084, 41261, 81058 #### [facility] [address] [place] [address], USASodium [Moles/Vol]140 mmol/AGajlfq377-550Uij [facility] Medical CenterComment on above:Order Comment: No: Do not add to previous drawPerformed By: #### 45320, 56396, 25137, 64052 #### [facility] [address] [place] [address], USAUrea nitrogen [Mass/Vol]13 mg/dLNormal7-25The [facility] Medical CenterComment on above:Order Comment: No: Do not add to previous drawPerformed By: #### 87701, 23132, 01859, 75707 #### [facility] [address] [place] [address], USACBC COMPLETE BLOOD COUNTon 36-27-0567Zfxkqxkdsfc distribution width (RBC) [Ratio]13.1 %Aytwwc30.5-15.0The [facility] CenterComment on above:Order Comment: No: Do not add to previous draw Performed By: #### 33894 #### [facility] [address] [place] [address], USAHematocrit (Bld) [Volume fraction]36.8 %Ubrlgy79.0-45.0The [facility] CenterComment on above:Order Comment: No: Do not add to previous drawPerformed By: #### 81848 #### [facility] [address] [place] [address], [facility] CENTERHemoglobin (Bld) [Mass/Vol]12.1 g/hCIhzyrp68.0-15.0The [facility] CenterComment on above:Order Comment: No: Do not add to previous drawPerformed By: #### 56754 #### [facility] [address] [place] [address], [facility] (RBC) [Entitic mass]29.3 ldJswzur08.0-33.0The [facility] CenterComment on above:Order Comment: No: Do not add to previous drawPerformed By: #### 98228 #### [facility] [address] [place] [address], [facility] (RBC) [Mass/Vol]32.9 g/kYRajgts41.0-35.0The [facility] CenterComment on above:Order Comment: No: Do not add to previous drawPerformed By: #### 63904 #### [facility] [address] [place] [address], [facility] (RBC) [Entitic vol]89.1 eGEvmvit79.0-98.0The [facility] CenterComment on above:Order Comment: No: Do not add to previous drawPerformed By: #### 57368 #### [facility] [address] [place] [address], USANucleated RBC/100 WBC (Bld) [Ratio]0 %Normal0-0The [facility] CenterComment on above:Order Comment: No: Do not add to previous drawPerformed By: #### 97268 #### [facility] [address] [place] [address], USAPLAT UGA327 10*3/jGLqsgmo640-899Xwy [facility] Medical CenterComment on above:Order Comment: No: Do not add to previous draw Performed By: #### 28045 #### [facility] [address] [place] [address], USARBC (Bld) [#/Vol]4.13 10*6/uLNormal3.80-5.00The [facility] CenterComment on above:Order Comment: No: Do not add to previous drawPerformed By: #### 93782 #### [facility] [address] [place] [address], USAWBC (Bld) [#/Vol]6.30 10*3/uLNormal4.00-10.60The [facility] Medical CenterComment on above:Order Comment: No: Do not add to previous drawPerformed By: #### 38720 #### [facility] [address] [place] [id number], USAHistory and Physicalon 14-88-8737Dzqzeln and PhysicalMR#: [id number] [facility] Pt. Name: Claudette Ross Admitted: 03/05/2019 Date of : 1955 Attending Physician: Nitin Gonzalez MD Room #: 3AB 186715 Discharge Date: HISTORY AND PHYSICAL CHIEF COMPLAINT: Chest pain. HISTORY OF PRESENT ILLNESS: This is a 63-year-old female with past medical history significant for hypertension, dyslipidemia, hypothyroidism. The patient was in her usual state of health up until fruit grader when she had a severe episode of sudden onset substernal chest pain radiating to the neck. She reports that she was sitting on her chair when the episode started. It was 10/10 in intensity, associated with shortness of breath for which she called the EMS who gave her nitroglycerin sublingual, which helped a bit and then she was transferred to [facility]. In [facility], an EKG was done, which was showing no significant changes. Troponin was done, which was negative. The patient was started on nitroglycerin drip. She also had a CT angiogram of the chest, which was negative for pulmonary embolism, but it was positive for a pulmonary nodule and the patient was transferred to [facility] for further evaluation. The patient reports that she still does have 6/10 substernal chest pain but with no shortness of breath at this time. She still feels the pain in her neck. She reports that she never had those episodes recently, but remotely she had similar episodes, but she did not see a projection camera operator. She reports that she is compliant with her medication, but she does not recall exactly what medication she takes. PAST MEDICAL HISTORY: Include hypertension, dyslipidemia, hypothyroidism. SOCIAL HISTORY: She reports no history of tobacco use. No use of alcohol. MEDICATIONS: At home from the list from [facility] include Singulair 10 mg per oral [...] Alert and oriented x3. LABORATORY DATA: From [facility] showing hemoglobin of 13, platelets 182, [...] Gonzalez MD Date Trans: 03/05/2019 10:44 A/drew DN_JN:[id number] HospitalMAGNESIUM BLOOD on 55-41-6283Mjtbwriek [Mass/Vol]2.2 mg/dLNormal1.9-2.7The [facility] CenterComment on above:Order Comment: No: Do not add to previous draw Performed By: #### 10256, 67626, 39540, 09552 #### [facility] [address] [facility] [place] [address], USATROPONIN-Ion 11-13-1751Qzxptuji I.cardiac [Mass/Vol]0.01 ng/mLNormal0.00-0.04The [facility] Medical CenterComment on above: Order Comment: No: Do not add to previous drawResult Comment: REFERENCE RANGES: 0.00 - 0.04 ng/ml NORMAL 0.05 - 0.50 ng/ml INDETERMINATE > 0.50 ng/ml CONSISTENT WITH AN M.I.Performed By: #### 37805 #### [facility] [address] [facility] [place] [address], USATroponin I.cardiac [Mass/Vol]0.00 ng/mLNormal0.00-0.04The [facility] Medical CenterComment on above:Order Comment: No: Do not add to previous drawResult Comment: REFERENCE RANGES: 0.00 - 0.14 ng/ml NEGATIVE 0.15 - 0.25 ng/ml INDETERMINATE > 0.25 ng/ml INDICATIVE OF AN M.I.Performed By: #### 94232 #### [facility] [address] [facility] [place] [address], USATroponin I.cardiac [Mass/Vol]0.00 ng/mLNormal0.00-0.04The [facility] CenterComment on above:Order Comment: No: Do not add to previous drawResult Comment: REFERENCE RANGES: 0.00 - 0.14 ng/ml NEGATIVE 0.15 - 0.25 ng/ml INDETERMINATE > 0.25 ng/ml INDICATIVE OF AN M.I.Performed By: #### 38541, 87767, 48674, 15530 #### [facility] [address] [facility] [place] [address], USATSH3 WITH REFLEXon 52-38-0233OVR 3RD GENERATION2.38 uIU/mL Normal0.34-5.60The [facility] Medical CenterComment on above:Performed By: #### 57051, 33729, 56545, 38735 #### [facility] [address] [place] [address], USAIntraoperative Noteon 99-99-1781Yhrtvblrttnlie Note [id number]#1.00OTPro[facility] Intraoperative [id number]#1.00OTGalion Community HospitalHistory and Physicalon 68-60-8227Jkcgixw and Physical [id number]#1.00[facility] Provider Orderson 16-75-0464Iwofrjyr Orders [id number]#1.00OTSouthwestern [facility] HospitalCoding Summaryon 91-70-2656Pzemhr SummaryCODING DATE: 01/18/2017 [facility] STATUS: Home PAYOR: Medicare APC DESCRIPTION 5431 Level 1 Nerve Procedures ADMIT DX: REASON FOR VISIT DX: G56.02 Carpal tunnel syndrome, left upper limb FINAL DX: PRINCIPAL: G56.02 Carpal tunnel syndrome, left upper limb SECONDARY: E78.5 Hyperlipidemia, unspecified I10 Essential (primary) hypertension E03.9 Hypothyroidism, unspecified Z72.0 Tobacco use PYMT PROC APC STAT DESCRIPTION DOCTOR NAME DATE 5430 J1 Neuroplasty and/or Conrado Mccoy And 01/16/2017 [...] By: Rossana Swan Date Saved: 01/18/2017 07:38 [facility] HospitalConsent Formson 62-77-8808Mtndxiu Forms [id number]#1.00[facility] Anesthesia Noteon 88-46-7213GDRAovyiac: CALUDETTE ROSS : 61 years Sex: FEMALE : [birth year]Associated Diagnoses: NoneAuthor: Rakan Hernandez MDPostoperative InformationAnesthetic utilized: Monitored anesthesia care.AssessmentAnesthetic outcomeNo anesthetic complications noted.PlanTransfer/ Discharge: Patient can be discharged from PACU when criteria met.Condition good.[Electronically Signed on:01/16/2017 14:17 EST] Rakan Hernandez MD[Verified on: 01/16/2017 14:17 EST] Rakan Hernandez MD [facility] HospitalAnesthesia NotePatient: CLAUDETTE ROSS : 61 years Sex: FEMALE : [...] 50 mg = 1 tab(s), PRN, PO, y7gaCggzjbv list (past medical history):All ProblemsHypothyroidism / SNOMED CT 74523966 / ConfirmedCanceled: No Chronic Problems / Cerner NKPHistoriesFamily History:No family history items have been selected or recorded.Procedure history:Carpal tunnel decompression (1565132160) on 12/12/2016 at 61 Years.Cholecystectomy (34300854).Hysterectomy and bilateral salpingo-oophorectomy sample (988614717).Fracture (685571737).Comments:12/09/2016 08:10 - Vandana Onofre wristDisc (0933131048).Comments:12/09/2016 08:11 - Vandana Onofre elvira and screwsSpur of ankle bone (074395299724858).Comments:12/09/2016 08:12 - Gabriel Onofre footRotator cuff repair (210302741).Comments:12/09/2016 08:12 - Vandana Onofre RNrightSocial History Alcohol Assessment Use: Never. Tobacco Assessment Never (less than 100 in lifetime) Tobacco Use:..Social & Psychosocial ZfxudgHmibyio98/20/2017 Alcohol Use: McrdnYgphqck34/20/2017 Smoking tobacco use: Never (less than 100 in l.Physical ExaminationGeneral: Alert and oriented.Airway: Mallampati classification: II (soft palate, fauces, uvula visible). Temporomandibular joint mobility: Good. Mouth: Dentures ( Upper and lower dentures ).HENT: Normocephalic.Respiratory: Lungs are clear to au scultation.Cardiovascular: Regular rhythm.Neurologic: Alert, Oriented.Review / ManagementLaboratoryResultsPlanAmerican Society of Anesthesiologists#(ASA) physical status classification: Class III.Anesthetic Preoperative PlanAnesthesia: Monitored anesthesia care. Anesthetic plan, risks, benefits, and alternatives discussed with the patient and/or family. Patient verbalized understanding. Informedconsent was given.[Electronically Signed on: 01/16/2017 12:52 EST] Rakan Hernandez MD[Verified on: 01/16/2017 12:52 EST] Rakan Hernandez MDNoWright-Patterson Medical CenterInpatient Clinical Summaryon 33-34-0747Njklzmesx Clinical SummaryWay[facility] SURGERYClinical Discharge SummaryPERSON INFORMATIONName CLAUDETTE ROSS Age 61 Years 53Sex FEMALE Language Canadian PCP Provider, UnlistedMarital Status Single [facility] Service Ambulatory SurgeryPAT[facility] [id number] Acct# Arrival 01/16/17 09:25:18Visit Reason LEFT CARPAL TUNNEL RELEASE Acuity LOS 010 23:07Address:[address] [facility] [address]Lzeqgip:PROVIDER INFORMATIONVITALS INFORMATIONVital Sign Triage LatestTemp OralTemp TemporalTemp IntravascularTemp AxillaryTemp Rvlfws69 Sat 96 % 95 %Respiratory Rate 16 [...] INFORMATIONDischarge Disposition:Discharge Location:DEPART REASON INCOMPLETE INFORMATIONPATIENT EDUCATION INFORMATIONInstructions:Nadine- Post Op Carpal Tunnel ([facility])Follow up:With: Address: When:Conrado Mccoy [address] [place] [address] Business (2)Comments:Call for follow up appointmentWith: Address: When:Unlisted ProviderDIAGNOSISCarpal tunnel syndrome on leftComment:PHYS DOC NOTESNoWright-Patterson Medical CenterInpatient Patient Summaryon 09-62-5954Wwapzzosz Patient Summary[address] [place] [address] patient Discharge InstructionsName: CLAUDETTE ROSS ADOB: [birth year] Address: [address] [place] [address] [address] [facility] [address]Bszquny Care Provider:Name: Provider, UnlistedPhone:After you are dischargedif you find you have any questions, please, call [phone] ext [phone] to speak to a nurse.Discharge Diagnosis: Carpal [...] or sleep? Do not make important personal orbusiness decisions or sign any legal documentsShelby Memorial Hospital would like to thank you for allowing us to assist you with your healthcare needs. The following includes patient education materials and information regarding your injury/illness.CLAUDETTE ROSS has been given the following list of follow-up instructions, prescriptions, and patient education materials:Follow-up InstructionsWith: Address: When:Conrado Mccoy [address] [facility], [address] [place], [phone] Business (2)Comments:Call for follow up appointmentWith: Address: [...] 1 tab(s) Oral every week.levothyroxine (levothyroxine 25 mcg(0.025 mg) oral tablet) 1 tab(s) Oral every day.montelukast (montelukast 10 mg oral tablet) 1 tab(s) Oral once a day (in the evening).sertraline (sertraline 100 mg oral tablet) 1 tab(s) Oral every day .simvastatin (simvastatin 20 mg oral tablet) 1 tab(s) Oral once a day (at bedtime).traMADol (traMADol 50 mg oral tablet) 1 tab(s) Oral Every 4 hours as needed for pain. Refills: 0.Take only the medications listed above. Contact your doctor prior to taking any medications not on this list.Diet &ActivityPatient Activity Level: As ToleratedPatient Diet: RegularPatient Activity Restrictions:Comment:Patient education materials, if any, will display belowDR. TOLENTINO POST OPERATIVE CARPEL TUNNEL INSTRUCTIONSSURGEONS WRITTEN INSTRUTCTIONS:-Keep your hand elevated above your elbow for the first 24 hours after surgery-Wiggle your fingers frequently while awake-DO NOT lift heavy objects or high worker forcefully with your hand-Change your dressing in 1 day and apply an regis bandage as directed withthe thumb tucked towards the palm of your hand. This keeps the tension off your incision-You may shower in 1 day but do not submerge your hand under water. Put a 4x4 gauze and the regis bandage back on after you shower-If you have any problems or concerns, please call the office at [phone]-Follow up as scheduledViruses or BacteriaWhat?s got you sick?Antibiotics only treat bacterial infections.Viral illnesses cannot be treated with antibiotics. When an antibiotic is not prescribed, ask your h ealtare professional for tips on how to relieve symptoms and feel better. Usual CauseIllness Viruses Bacteria Antibiotic NeededCold/Runny Nose NOBronchitis/Chest Cold (in otherwise healthy childrenand adults) NOWhooping Cough YesFlu NOStrep Throat YesSore Throat (except strep) NOFluid in the middle ear (otitis media with effusion) NOUrinary Tract Infection YesAntibiotics Aren?t Always the Answerwww.cdc.gov/getsmart GETSMARTKnow When Antibiotics Beti.[facility] of Health and Human ServicesCleveland Clinic Akron General Lodi Hospitalers for Disease Control and Prevention October 2013[facility] Intraoperative Recordon [id number] Intraoperative RecordMA Intra-Op Record Summary Primary Physician: Conrado Mccoy DO Finalized Date/Time: 01/16/17 15:01:02 Pt. Name: CLAUDETTE ROSS/Sex: 1955 FEMALE Med Rec #: [id number] Physician: Conrado Mccoy DO Financial #: [id number] Pt. Type: D Room/Bed: / Admit/Disch: 01/16/17 [...] Role Performed Surgeon - Primary Anesthesiologist of Head Stock Transfer Clerk Record Time In 01/16/17 13:11:00 01/16/17 13:11:00 01/16/17 13:11:00 Time Out 01/16/17 13:44:00 01/16/17 13:44:00 01/16/17 13:44:00 Procedure Carpal Tunnel Carpal Tunnel Carpal Tunnel Release(Left) Release(Left) Release(Left) Last Modified By: Caroline Montgomery RN, Stephanie RN Sauer, Stephanie RN 01/16/17 14:29:30 01/16/17 14:29:30 01/16/17 14:29:30 Entry 4 Entry 5 Case Attendee Paul Alas Linda M Regina ENTRY LEVEL RECRUITER Role Performed Scrub Personnel Rhythmic Gymnastics Coach Time In 01/16/17 13:11:00 01/16/17 13:11:00 Time Out 01/16/17 13:44:00 01/16/17 13:44:00 Procedure Carpal Tunnel Carpal Tunnel Release(Left) Release(Left) Last Modified By: Caroline Montgomery RN, Stephanie RN 01/16/17 14:29:30 01/16/17 14:29:30 Surgical Procedures MAGR Pre- Care Text: A.20Verifies operative procedure, surgical site, and laterality Im.150 Develops individualized plan of care Entry 1 Procedure Carpal Tunnel Release Primary Procedure Yes Primary Surgeon Dani Mccoy Left Henri DO Surgeon Comment LEFT CARPAL TUNNEL Start 01/16/17 13:20:00 RELEASE Stop 01/16/17 13:38:00 Anesthesia Type MAC Surgical Service Orthopedics Wound Class Clean Last Modified By:Caroline Montgomery RN 01/16/17 14:19:08 Post-Care Text: O.730 [...] Last Modified By: Caroline Montgomery RN 01/16/17 14: 19:15 Post-Care Text: O.760 Patient receives consistent and [...] Nursing team Yes reviews any reviews sterility patient- specific (including concerns indicator results) and equipment issues/concerns [...] Post-Care Text: E.290 Evaluates musculoskeletal status O.80 Patientis free from signs and symptoms of injury related to positioning Skin Prep MAGR Pre-Care Text: A.30 Verifies allergies Im.270 Performs skin preparation Im.270.1 Implements protective measures to prevent skin and tissue injury due to chemical sources Entry 1 Skin Prep Syntegrity Prep Agents (Im.270)Povidone-Iodine Prep By Caroline Montgomery RN Prep Area [...] chemical injury Counts Verification MAGR Pre-Care Text: A. 20 Verifies operative procedure, surgical site, and laterality A.20.2 Assesses the risk for unintended retained foreign body Im.20 Performs required counts Entry 1 Procedure Carpal Tunnel Release(Left) Counts Verification Initial Counts Items included in Sponges, Sharps Initial Counts Caroline Montgomery RN, the Initial Count Performed By Terri Alas ENTRY LEVEL RECRUITER Initial Count Time 01/16/17 13:10:00 Counts Verification [...] Outcome Met (O.60) Yes Last Modified By: Sherita Montgomery 01/16/17 14:27:39 Post-Care Text: E.10 Evaluates for [...] Montgomery RN 01/16/17 14:28:02 Post-Care Text: E.10 Evaluatesfor signs and symptoms of physical injury to [...] Item 4x4's, Non-adhesive Tape (Im.290) Elastic Sports Bandage(Im.290) dressing Outcome Met Yes Last Modified By: Caroline Montgomery RN 01/16/17 14:28:58 Post-CareText: E.200 Evaluates progress of wound healing O.200 Patient's wound perfusion is consistent with or improved from baseline levels Unfinalized History Date/Time Username Reason for Unfinalizing Freetext Reason for Unfinalizing 01/16/17 15:00 [facility] DocumentationK[facility] Postoperative Recordon [id number] Postoperative RecordMA Phase II Record Summary Primary Physician: Conrado Mccoy DO Finalized Date/Time: 01/16/17 15:27:42 Pt. Name: CLAUDETTE ROSS./Sex: 1955 FEMALE Med Rec #: [id number] Physician: Conrado Mccoy DO Financial #: [id number] Pt. Type: D Room/Bed: / Admit/Disch: 01/16/17 09:25:18 - Institution: Phase II Case Times MAGR Pre-Care Text: Patient is free from s/s of injury. Patient remains free from compromised physical state related to surgery or anesthesia. Patient comfort maintained. Patient/family verbalize understanding of discharge instruc tions. Entry 1 In PACU II 01/16/17 13:44:00 Discharge from PACU 01/16/17 15:27:00 II Last Modified By: Susu Stern RN 01/16/17 15:27:40 Post-Care Text: The patient remains free from s/s of injury. Patient's vital signs stable, circulation maintained, return to preop mental and physical status, o psite/dressing intact, minimal or absent nausea and vomiting, [...] Signed By: Susu Stern RN 01/16/17 15:27 [facility] Preoperative Recordon [id number] Preoperative RecordMA Pre-Op Record Summary Primary Physician: Conrado Mccoy DO Finalized Date/Time: 01/16/17 13:05:28 Pt. Name: CLAUDETTE ROSS Esmer /Sex: 1955 FEMALE Med Rec #: [id number] Physician: Conrado Mccoy DO Financial #: [id number] Pt. Type: D Room/Bed:/ Admit/Disch: 01/16/17 09:25:18 - Institution: Pre-Op Case [...] arrives ambulatory to room 204. Oriented to room/facility.No complaints of any chest pain, shortness of breath or illnessess. Denies pacemaker/defib. Denies sleep apnea. Finalized By: Susu Stern RN Document Signatures Signed By: Susu Stern RN 01/16 13:05[facility] HospitalOperative Report - Surgeon/Physicianon [id number] Report - Surgeon/PhysicianProcedure: Decompression of median nerve left wrist with [...] DO[Verified on: 01/16/2017 13:32 EST] Conrado Mccoy [facility] Intraoperative Recordon [id number] Intraoperative RecordMAGR Intra-Op Record Summary Primary Physician: Conrado Mccoy DO 711 Finalized Date/Time: 01/10/17 10:13:17 Pt. Name: CLAUDETTE ROSS Kaylah/Sex: 1955 FEMALE Med Rec #: [id number] Physician: Conrado Mccoy DO Financial #: [id number] Pt. Type: D Room/Bed: / Admit/Disch: 12/12/16 12:05:33 - 12/12/16 18:19:00 Institution: Case Times MAGR Entry 1 PatientIn Room Time 12/12/16 16:52:00 Out Room Time 12/12/16 17:25:00 Anesthesia Start Time 12/12/16 16:52:00 Stop Time 12/12/16 17:28:00 Surgery Start Time 12/12/16 17:10:00 Stop Time 12/12/16 17:23:00 Last Modified By: Bina Limon RN 12/12/16 17:28:36 Case Attendance MAGR Entry 1 Entry 2 Entry 3 Case Attendee Conrado Mccoy Robert M MD Long, Barbara RN Andrew DO Role Performed Surgeon - [facility] Anesthesiologist of Head Stock Transfer Clerk Record Time In 12/12/16 16:52:00 12/12/16 16:52:00 12/12/16 16:52:00 Time Out 12/12/16 17:25:00 12/12/16 17:25:00 12/12/16 17:25:00 Procedure Carpal Tunnel Carpal Tunnel Carpal Tunnel Release(Right) Release(Right) Release(Right) Last Modified By: Bina Limon Barbara RN Long, Barbara RN 12/12/16 17:25:48 12/12/16 17:25:48 12/12/16 17:25:48 Entry 4 Entry 5 Case Attendee Chelsie Marcum CST, Leigh-Ann CST Role Performed Scrub Personnel Rhythmic Gymnastics Coach Time In 12/12/16 16:52:00 12/12/16 16:52:00 Time Out 12/12/16 17:25:00 12/12/16 17:25:00 Procedure Carpal Tunnel Carpal Tunnel Release(Right) Release(Right) Last Modified By: Bina Limon RN, Barbara RN 12/12/16 17:25:48 12/12/16 17:25:48 Surgical Procedures MAGR Pre-Care Text: A.20 Verifies operative procedure, surgical site, and laterality Im.150 Develops individualized plan of careEntry 1 Procedure Carpal Tunnel Release Primary Procedure Yes Primary Surgeon Conrado Mccoy Modifiers Right Henri DO Surgeon Comment RELEASE RIGHT CARPAL Start 12/12/16 17:10:00 TUNNEL Stop 12/12 17:23:00 Anesthesia Type MAC Surgical Service Orthopedics [...] Last Modified By: Bina Limon RN 12/12/16 17:12:12Post-Care Text: O.760 Patient receives consistent and comparable care regardless of the setting Time Out MAGR Entry 1 Time out date/time 12/12/16 17:09:00 All team members Yes have introduced themselves by name and role Surgeon, Yes Surgeon reviews Yes anesthesia, nurse critical or confirm patient,unexpected steps, site, procedure operative duration, anticipated blood loss Anesthesia team Yes Nursing team Yes reviews any reviews sterility patient-specific (including concerns indicator results)and equipment issues/concerns Antibiotic Yes Is essential N/A [...] Feet Uncrossed? Yes Press Points Checked Yes PositioningDevice Arm Boards, Arm Strap, Outcome Met (O.80) [...] Bear, the Initial Count Performed By Chelsie ENTRY LEVEL RECRUITER Initial Count Time 12/12/16 17:00:00 Counts Verification Final Counts Items Included in Sponges, Sharps Final Count Method Manual Final Count Final Count Status Correct Final Counts Bina Limon RN, Bear, Performed By [employer] ENTRY LEVEL RECRUITER Final Count Time 12/12/16 17:14:00 Surgeon notified of Yes final counts status Outcome Met (O.20) Yes Last Modified By: Bina Limon RN 12/12/16 17:14:11 Post-Care Text: E.50 Evaluates results of the surgical count O.20 Patient is free from unintended retained foreign objects Tourniquet MAGR Pre- Care Text: A.240 Assesses baseline skin condition Im.120 [...] (O.60) Yes Henri DO Last Modified By: Obi Limon RN 12/12/16 17:22:56 Post-Care Text: E.10 Evaluates for signs and symptoms of physical injuryto skin and tissue O.60 Patient is free [...] Text: A.210 Identifies physiological status Im.220 Administers prescribedmedications Entry 1 Entry 2 Time Administered 12/12/16 17:10:00 12/12/16 17:20:00 Medication marcain e 0.5% bacitracin/neomycin, poly b oint Route of Admin SubQ TOP Dose 4.5 mL Volume 30 mL By Conrado Mccoy James Andrew DO Andrew DO Outcome Met (O.130) Yes Yes Last Modified By: Bina Limon RN, Barbara RN 12/12/16 17:16:20 01/10/17 10:13:12 Post-Care Text: E.20 Evaluates response to medications O.130 Patient receives appropriately administered medication(s) Dressing/PackingMAGR Pre-Care Text: A.350 Assesses susceptibility for infection Im.290 Administer care to wound sites Entry 1 Skin Prep Agent Yes Site Hand Removed Prior to Dressing? Site Details Right Dressing ItemDetails Dressing Item 4x4's, Roller Gauze (Im.290) Outcome Met Yes Last Modified By: Bina Limon RN 12/12/16 17:16:56 Post-Care Text: E.200 Evaluates progress of wound healing O.200 Patient's woundperfusion is consistent with or improved from baseline levels Unfinalized History Date/Time Username Reason for Unfinalizing Freetext Reason for Unfinalizing 01/10/17 07:32 MHBLONG Modify Ana M Durán 01/10/17 10:12 MHBLONG Modify [facility] Preoperative Recordon [id number] Preoperative RecordMAGR Pre-Op Record Summary Primary Physician: Conrado Mccoy DO Finalized Date/Time: 12/22/16 13:33:53 Pt. Name: CLAUDETTE ROSS Esmer Neves./Sex: 1955 FEMALE Med Rec #: [id number] Physician: Conrado Mccoy DO Financial #: [id number] Pt. Type: D Room/Bed:/ Admit/Disch: 12/12/16 12:05:33 - 12/12/16 18:19:00 Institution: [...] is ready for surgery. The patient remains f ree from s/s of injury. Patient/family express understanding of plan of care and participate in decisions affecting his or her perioperrative plan of care. Allergies documented appropriately. Patientidentifiers and consent correct. General Comments: arrives ambulatory to w, denies recent cp, sob, new illnesses, pacemaker, defibrillator or sleep apnea Finalized By: Susu Stern RN Document Signatures Signed By: Susu Stern RN 12/22/16 13:33[facility] HospitalCoding Summaryon 81-54-1065Gvjvqj SummaryCODING DATE: 12/15/2016 [facility] STATUS: Home PAYOR: Medicare APC DESCRIPTION 5733 Level 3 Minor Procedures ADMIT DX: REASON FOR VISIT DX: Z01.810 Encounter for preprocedural cardiovascular examination FINAL DX: PRINCIPAL: Z01.810 Encounter for preprocedural cardiovascular examination SECONDARY: PYMT PROC APC STAT DESCRIPTION DOCTOR NAME DATE NOTE: The code number assigned matc hes the documented diagnosis and / or procedure in the patient's chart. However, the narrative phrase printed from the coding software may appear abbreviated, or result in slightly different terminology. Coded By: Linda Jenkins Date Saved: 12/15/2016 04:40 [facility] HospitalCoding SummaryCODING DATE: 12/15/2016 [facility] STATUS: Home PAYOR: Medicare APC DESCRIPTION 5431 Level 1 Nerve Procedures ADMIT DX: REASON FOR VISIT DX: G56.01 Carpal tunnel syndrome, right upper limb FINAL DX: PRINCIPAL: G56.01 Carpal tunnel syndrome, right upper limb SECONDARY: DEEPIKA PROC APC STAT DESCRIPTION DOCTOR NAME DATE 26563 5431 J1 Neuroplasty and/or Conrado Mccoy And 12/12/2016 transposition; median nerve at carpal tunnel RT Right side (used to identify procedures performed on the right side of the body) NOTE: The code number assigned matches the documented diagnosis and /or procedure in the patient's chart. However, the narrative phrase printed from the coding software may appear abbreviated, or result in slightly different terminology. Coded By: Rachel Zafar DateSaved: 12/15/2016 01:[address] [facility] HospitalConsent Formson [id number] Forms [id number]#1.00[facility] History and Physicalon 59-76-0452Tsqriep and Physical [id number]#1.00[facility] Provider Orderson 75-41-5606Qejtxvzx Orders [id number]#1.00[facility] Anesthesia Noteon 63-33-2558Burgbzefkw NotePatient: CLAUDETTE ROSS : 61 years Sex: FEMALE : [birth year]Associated Diagnoses: NoneAuthor: Theodore Guevara MDPostoperative InformationPost Operative Note: Operative Day.Anesthetic utilized: Monitored anesthesia care.Health StatusAllergies:Allergic Reactions (All)Severity Not DocumentedCodeine- Rash.Percocet 5/325- Rash.Vicodin- Rash.Problem list (past medical history):All ProblemsHypothyroidism / SNOMED CT 12398381 / ConfirmedCanceled: No Chronic Problems / Cerner NKPPhysical ExaminationVS/MeasurementsVital Signs (last 24 hrs) Last ChartedHeart Rate Peripheral 80 bpm (DEC 12 12:30)Resp Rate 0 br/min (DEC 12 17:25)SBP 96 mmHg (DEC 12 17:22)DBP 63 mmHg (:)SpO2 97 % (DEC 12 17:20)Review / ManagementCondition: Stable.AssessmentAnesthetic outcomeNo anesthetic complications noted.PlanTransfer/ Discharge: Patient can be discharged from PACU when criteria met.Condition good.[Electronically Signed on: 12/12/2016 17:31 EDT] Theodore Guevraa MD[Verified on: 12/12/2016 17:31 EDT] Theodore Guevara MDOhioHealth Mansfield HospitalAnesthesia NotePatient: CLAUDETTE ROSS : 61 years Sex: FEMALE : [birth year]Associated Diagnoses: NoneAuthor: Theodore Guevara [facility] CENTERreoperative InformationAnesthesia history: Patient history: No difficult intubation, [...] 20 mg oral tablet 20 mg = 1tab(s), PO, Once a day (at bedtime)Problem list (past medical history):All ProblemsHypothyroidism /SNOMED CT 29473377 / ConfirmedCanceled: No Chronic Problems / Cerner NKPAsthma, mildHistoriesFamilyHistory:No family history items have been selected or recorded.Procedure history:Cholecystectomy (41416712).Hysterectomy and bilateral salpingo-oophorectomy sample (201871307).Fracture ([id number]).Com ments:12/09/2016 08:10 - Vandana Onofre wristDisc ([id number]).Comments:12/09/2016 08:11 - Vandana Onofre elvira and screwsSpur of ankle bone ([id number]).Comments:12/09/2016 08:12 - Vandana Onofre footRotator cuff repair ([id number]).Comments:12/09/2016 08:12 - Vandana OnofrehtSocial History Alcohol Assessment Use: Never. Tobacco Assessment Never (less than 100 in lifetime) Tobacco Use:..Social & Psychosocial IdyciqGkgsocu91/20/2017 Alcohol Use: CvilhUphvztx89/20/2017 Smoking tobacco use: Never (less than 100 in l.Physical ExaminationVS/MeasurementsVital Signs (last 24 hrs) Last ChartedHeart Rate [...] with the patient and/or family. Patient verbalized understanding.[Electronically Signed on: 12/12/2016 14:32 EDT] Theodore Guevara MD[Verified on: 12/12/2016 14:32 EDT] Theodore Guevara MD [facility] HospitalInpatient Clinical Summaryon [id number] [facility] Summary[facility] SURGERYClinical Discharge SummaryPERSON INFORMATIONName CLAUDETTE ROSS Age 61 Years 53Sex FEMALE Language Canadian PCP Provider, UnlistedMarital Status Single Med Service Ambulatory SurgeryN [id number] Acct# Arrival 12/12/16 12:05:33Visit Reason SURGERY - RELEASE RIGHT CARPAL TUNNEL Acuity LOS 005 08:24Address:[address] [facility] [address] [place] [address]Ulauwzx:PROVIDER INFORMATIONVITALS INFORMATIONVital Sign Triage LatestTemp OralTemp TemporalTemp IntravascularTemp AxillaryTemp Tauwlq16 Sat 96 % 96 %Respiratory Rate 16 br/min 16 br/minPeriphe ral Pulse Rate 81 bpm 80 bpmApical Heart RateBlood Pressure 130 mmHg / 70 mmHg 115 mmHg / 71 mmHgComment:MEDICAL INFORMATIONAllergy Info:Percocet 5/325; Vicodin; codeinePrescriptions Given:Home Meds Displayalendronate (alendronate 70 mg oral tablet) 1 tab(s) ( 70 mg ), PO, qWeek, # 12 tab(s), 0 Refi ll(s)levothyroxine (levothyroxine 25 mcg (0.025 mg) oral tablet) [...] 20 mg ), PO, Once a day (atbedtime), # 30 tab(s), 0 Refill(s)Medication List:Continue These Medications:alendronate (alendronate 70 mg oral tablet) 70 mg Oral every weeklevothyroxine (levothyroxine 25 mcg (0.025 mg) oral tablet) 25 mcg Oral every daymontelukast (montelukast 10 mg oral tablet) 10 mg Oral once a day (in the evening)sertraline (sertraline 100 mg oral tablet) 100 mg Oral every daysimvastatin (simvastatin 20 mgoral tablet) 20 mg Oral once a day (at bedtime)Comment:Lab and Radiology ResultsLaboratory or OtherResults This Visit (last charted value for your 12/12/2016 visit) No Laboratory or Other Results This VisitDIET & ACTIVITYPatient Activity Level:Patient Diet:RegularPatient Activity Restrictions:DISCHARGE INFORMATIONDischarge Disposition:Discharge Location:DEPART REASON INCOMPLETE INFORMATIONPATIENT EDUCATION INFORMATIONInstructions:Nadine- Post Op Carpal Tunnel ([facility] NETWORKJUSTYNA)Follow up:With: Address: When:Conrado Mccoy [address] [facility], [place], [phone] Business (2)With: Address: When:Unlisted ProviderDIAGNOSISRight carpal tunnel syndromeComment:PHYS DOC NOTESNoWright-Patterson Medical CenterInpatient Patient Summaryon 54-50-7603Ubjhhmiua Patient Summary[address] [id number] patient Discharge InstructionsName: CLAUDETTE ROSS ADOB: [birth year] Address: [address] [place] [address] Care Provider:Name: Provider, UnlistedPhone:Discharge Diagnosis: Right carpal tunnel syndromeIf you received any narcotics, sedation, or any other medication that causes drowsiness for the next 24 hours, unless otherwise directed:? Do not drive a car.? Do not operate m Nexsan such as power tools, lawn mowers, drills, sewing machines, or stoves? Avoid alcoholic beverages and drugs for allergies, nerves, or sleep? Do not make important personal or business decisions or sign any legal documentsShelby Memorial Hospital would like to thank you for allowing us to assist youwith your healthcare needs. The following includes patient education materials and information regarding your injury/illness.CLAUDETTE ROSS has been given the following list of follow-up instructions, prescriptions, and patient education materials:Follow-up InstructionsWith: Address: When:Conrado Mccoy [address] [place] [address], [address] [place], [phone] Business (2)With: Address: When: Unlisted ProviderMedicationsDuring the course of your visit, your [...] while awake-DO NOT lift heavy objects or high worker forcefully with your hand-Change your dressing in 1 day and apply an regis bandage as directed withthe thumb tucked towards the palm of your hand. This keeps the tension off your incision-You may shower in 1 day but do not submerge your hand under water. Put a 4x4 gauze and the regis bandage back onafter you shower-If you have any problems or concerns, please call the office at [phone]-Follow up as scheduled Viruses or BacteriaWhat?s got you sick?Antibiotics only treat bacterial infections. Viral illnesses cannot be treated with antibiotics. When an antibiotic is not prescribed, ask yourhealthcare professional for tips on how to relieve symptoms and feel better. Usual CauseIllnessVirusesBacteria Antibiotic NeededCold/Runny Nose NOBronchitis/Chest Cold (in otherwise healthy children and adults) NOWhooping Cough YesFlu NOStrep Throat YesSore Throat (except strep) NOFluid in the middle ear (otitis media with effusion) NOUrinary Tract Infection YesAntibiotics Aren?t Always the Answerwww.cdc.gov/getsmart GET SMART Know When Antibiotics Beti.[place]. Department of Health and Human Service [facility] for Disease Control and Prevention October 2013[facility] Postoperative Recordon [id number] Postoperative RecordMA Phase II Record Summary Primary Physician: Conrado Mccoy DO Finalized Date/Time: 12/12/16 18:18:35 Pt. Name: CLAUDETTE ROSS /Sex: 1955 FEMALE Med Rec #: [id number] Physician: Conrado Mccoy DO Financial #: [id number] Pt. Type: D Room/Bed: / Admit/Disch: 12/12/16 [...] nausea and vomiting, tolerates po intake. Patient verbalizesadequate pain control. Patient/family express understanding of discharge [...] Signatures Signed By: Bina Limon RN 12/12/16 18:18[facility] Operative Report - Surgeon/Physicianon 28-23-9319Kaeruuhgb Report - Surgeon/PhysicianProcedure: Decompression of median nerve right wrist with [...] the chances for success / failure. I recommendedto proceed with surgery and the patient requested [...] scissors. I made sure that the nerve wascompletely decompressed as it exited the distal volar forearm fascia and traveled through the carpal tunnel and into the hand. The wound was irrigated with copious amounts sterile saline and the skinwas closed with nylon suture. Adaptic sterile dressings and an Regis bandage were applied with the thumb in appositionComplications: None[Electronically Signed on: 12/12/2016 17:29 EDT] Conrado Mccoy DO[Verified on: 12/12/2016 17:29 EDT] Conrado Mccoy [facility].Auto Diff 1on 57-71-3339Bjhm Baso %0.3 % Normal0.2-2.0S[facility] HospitalComment on above:Performed By: #### [id number], [id number], [id number] ####[facility] (DEFAULT)[address] [place], [place] [address]Xgoi [place] %10 %Normal1-12[facility]uder HospitalComment on above: Performed By: #### [id number], [id number], [id number] ####[facility] (DEFAULT)[address] [place] [address] 63483Urpy Neut %63 %Ngqamt08-44 [facility] HospitalComment on above:Performed By: #### [id number], [id number], [id number] ####[facility] (DEFAULT)[address] [place] [address] 22544Uxir Abs#0.0 r47Tnvgie9.0-0.2[facility] HospitalComment on above:Performed By: #### [id number], [id number], [id number] ####[facility] (DEFAULT)[address] [place] [address] 36458Ged Abs#0.1 c03Tyayjf1.0-0.4[facility] HospitalComment on above:Performed By: #### [id number], [id number], [id number] ####[facility] (DEFAULT)[address] [place] [address] 85772Urbrqvhefvq/100 leukocytes1.5 % Normal0.9-4.0[facility] HospitalComment on above:Performed By: #### [id number], [id number], [id number] ####[facility] (DEFAULT)[address] [place] [address] 23638Vyhcktsuyjh9.5 v04Bujxbo4.3-2.9[facility] HospitalComment on above:Performed By: #### [id number], [id number], [id number] ####[facility] (DEFAULT)[address] [place] [address] 84097Cnabioddvoq/100 ikpccpmhcv18 % Fuobcj84-88Ywuufqxt HospitalComment on above:Performed By: #### [id number], [id number], [id number] ####[facility] (DEFAULT)[address] [place] [address] 59874Xulf Abs#0.6 i01Qdtytv5.0-0.8[facility] HospitalComment on above: Performed By: #### [id number], [id number], [id number] ####[facility] (DEFAULT)[address] [place] [address] 67733Crls Abs#3.8 t63Jmqplg2.5-9.2 [facility] HospitalComment on above:Performed By: #### [id number], [id number], [id number] ####[facility] (DEFAULT)[address] [place] [address] 21952RKO Standardon 35-76-5131cLJE (non-black)mL/min/{1.73_m2}Invalid Interpretation CodeKettering Health Washington Township HospitalComment on above:Performed By: #### [id number], [id number], [id number] ####[facility] (DEFAULT)[address] [place] [address] 64406xCCA (non-black)mL/min/{1.73_m2}Invalid Interpretation Code [facility] HospitalComment on above:Result Comment: Chronic Kidney disease could be indicated at eGFRs of less than 60 ml/min/1.73m2. Kidney Failure is indicated at less than 15 ml/min/1.90h0Qqtuhtmax By: #### [id number], [id number], [id number] ####[facility] (DEFAULT)[address] [place] [address] 81633Oejri gap 11.0 mmol/LNormal5.0-19.0[facility] HospitalComment on above:Performed By: #### [id number], [id number], [id number] ####[facility] (DEFAULT)[address] [place] [address] 95802YRR/Creatinine Ratio12.0 mg/mgNormal4.6-16.2Magrcleveland clinic ak[facility]i hospital HospitalComment on above:Performed By: #### [id number], [id number], [id number] ####[facility] (DEFAULT)[address] [place] [address] 57367Qjchumo7.1 mg/dLNormal8.9-10.3Magrcleveland clinic [facility] lodi hospital HospitalComment on above:Performed By: #### [id number], [id number], [id number] ####[facility] (DEFAULT)[address] [place] [address] 01431Fujrokqk998 mmol/WNnsitd723-372Zcanhpfs HospitalComment on above:Performed By: #### [id number], [id number], [id number] ####[facility] (DEFAULT)[address] [place] [address] 98045RX028 mmol/PJjyszy34-55Bxxhnbxd HospitalComment on above:Performed By: #### [id number], [id number], [id number] ####[facility] (DEFAULT)[address] [place] [address] 16339Infwwikaij 0.86 mg/dLNormal0.60-1.30[facility] HospitalComment on above:Performed By: #### [id number], [id number], [id number] ####[facility] (DEFAULT)[address] [place] [address] 18557Xmehafe mass xykj308.0 mg/rSBoucmw49.0-118.0[facility] HospitalComment on above:Performed By: #### 8552428, [id number], [id number] ####[facility] (DEFAULT)[address] [place] [address] 62022Whvmphqahh 274 mOsm/LInvalid Interpretation CodeKettering Health Washington Township HospitalComment on above:Performed By: #### [id number], [id number], [id number] ####[facility] (DEFAULT)[address] [place] [address] 91258Wvmfeyhir molar conc3.8 mmol/LNormal3.6-5.1[facility] HospitalComment on above:Performed By: #### 1328384, 18597743, [id number] ####[facility] (DEFAULT)[address] [place] [address] 50126Jqlrwg 137.0 mmol/HCgpajk348.0-144.0[facility] HospitalComment on above:Performed By: #### 8053781, [id number], [id number] ####[facility] (DEFAULT)[address] [place] [address] 82243Crql umsroysr59 mg/dLNormal8-26[facility] Comment on above:Performed By: #### 3008973, [id number], [id number] ####[facility] (DEFAULT)[address] [place], [place] [address]CBC w/ Auto Diffon 75-89-5615Wmdjoqckczy distribution width Auto Ratio (RBC)13.2 %Uuoeqv61.5-15.0 [facility] HospitalComment on above:Performed By: #### 3571422, 77797438, [id number] ####[facility] (DEFAULT)[address] [place], [place] [address]Erythrocytes (RBC)4.40 m07Cxnjqa5.70-5.30[facility] HospitalComment on above: Performed By: #### [id number], 62820951, [id number] ####[facility] (DEFAULT)[address] [place], [place] [address]Hematocrit (HCT)39.4 %Normal 33.7-40.4[facility] HospitalComment on above:Performed By: #### 1580092, 58697353, [id number] ####[facility] (DEFAULT)[address] [place], [place] [address]Hemoglobin mass conc (Bld)13.8 g/lEUaebeb02.3-15.9[facility] HospitalComment on above:Performed By: #### [id number], 74975016, [id number] ####[facility] (DEFAULT)[address] [place], [place] [address]Man Diff?AutoNormalKettering Health [facility] Township HospitalComment on above:Performed By: #### [id number], 16790437, [id number] ####[facility] (DEFAULT)[address] [place], [place] [address]MCH31 pg Cetnzk75-93Jkqfhlhb HospitalComment on above:Performed By: #### 3147763, 81451238, [id number] ####[facility] (DEFAULT)[address] [place], [place] [address]MCHC mass conc (RBC)35 g/sMUvbcab34-44Supxolfp HospitalComment on above:Performed By: #### 5936061, 01511809, [id number] ####[facility] (DEFAULT)[address] [place] [address] 88513XSW62 dSYwvdet16-655Oyxqnqfx HospitalComment on above:Performed By: #### 2884358, 88703820, [id number] ####[facility] (DEFAULT)[address] [place] [address] 24324Apxugbvd mean volume (PMV)8.6 fLNocritical access hospital6.3-10.2[facility] HospitalComment on above:Performed By: #### 8521951, 64387983, [id number] ####[facility] (DEFAULT)[address] [place] [address] 03435Ivyllaqfm455 a77Lrpggy748-801Cgqpimsa Hospital Comment on above:Performed By: #### 8342003, 61217578, [id number] ####[facility] (DEFAULT)[address] [place] [address] 15734DKV (Leukocytes)6.0 x10 Invalid Interpretation CodeShelby Memorial HospitalComment on above:Performed By: #### 1029532, [id number], [id number] ####[facility] (DEFAULT)[address] [place] [address] 36260 Vital Signs Date TimeVital SignValuePerforming VetxpbkixWwzgrrrk10-26-1549 10:53-0500Body .56 cmLisa Ian HEALTH ANALYST-C Work Phone: [phone] [place], [place] [address]11-10-2025 10:53-0500 Body mass index (BMI) [Ratio]33 kg/m2Lisa Ian HEALTH ANALYST-C Work Phone: [phone]11-10-2025 10:53-0500 Body aochdzymoqp54.1 [degF]Jessica Ian HEALTH ANALYST-C Work Phone: [phone]-[facility]11-10-2025 10:53-0500 Body exvmdn42.2 kgLisa Aichholz HEALTH ANALYST-C Work Phone: [phone]11-10-2025 10:53-0500 Diastolic blood aldsssvv16 mm[Hg]Jessica Aichholz HEALTH ANALYST-C Work Phone: [phone]11-10-2025 10:53-0500 Heart rate72 /minLisa Aichholz HEALTH ANALYST-C Work Phone: [phone]11-10-2025 10:53-0500 Respiratory rate18 /minLisa Aichholz HEALTH ANALYST-C Work Phone: [phone]11-10-2025 10:53-0500 SaO2% (BldA) [Mass fraction]96 %Jessica Aichholz HEALTH ANALYST-C Work Phone: [phone]11-10-2025 10:53-0500 Systolic blood czgsuilt385 mm[Hg]Jessica Aichholz HEALTH ANALYST-C Work Phone: [phone]09-16-2025 13:07-0400 Body bvativ762.56 cmLisa Aichholz HEALTH ANALYST-C Work Phone: [phone]09-16-2025 13:07-0400 Body mass index (BMI) [Ratio]33 kg/m2Lisa Aichholz HEALTH ANALYST-C Work Phone: [phone]09-16-2025 13:07-0400 Body bptxbdjmvro47.5 [degF]Jessica Aichholz HEALTH ANALYST-C Work Phone: [phone]09-16-2025 13:07-0400 Body wfibqs44.31 kgLisa Aichholz HEALTH ANALYST-C Work Phone: [phone]09-16-2025 13:07-0400 Diastolic blood oxedazyi34 mm[Hg]Jessica Aichholz HEALTH ANALYST-C Work Phone: [phone] [place], [place] [address]409-16-2025 13:07-0400 Heart rate78 /minLisa Aichholz HEALTH ANALYST-C Work Phone: [facility]09-16-2025 13:07-0400 Respiratory rate20 /minLisa Aichholz HEALTH ANALYST-C Work Phone: [facility]09-16-2025 13:07-0400 SaO2% (BldA) [Mass fraction]96 %Jessica Levhholz HEALTH ANALYST-C Work Phone: [facility]09-16-2025 13:07-0400 Systolic blood gtbmcpis451 mm[Hg]Jessica Levhholz HEALTH ANALYST-C Work Phone: [facility]06-16-2025 13:17-0400 Body mass index (BMI) [Ratio]33.03 kg/m2Lisa Levhholz HEALTH ANALYST Work Phone: [facility] CenterLfljxovybs63-96-1645 13:17-0400Body temperature 98.49 [degF]Jessica Levhholz HEALTH ANALYST Work Phone: [facility] CenterOgpbrrzigj39-29-7076 13:17-0400Body .27 kgLisa Levhholz HEALTH ANALYST Work Phone: [facility] CenterGhbaomrjjx10-69-4029 13:17-0400Diastolic blood pvuizfhx64 mm[Hg]Jessica Aichholz HEALTH ANALYST Work Phone: [facility] CenterZmsbgujlan59-65-5281 13:17-0400Heart rate81 /min Jessica Aichholz HEALTH ANALYST Work Phone: [facility] CenterGmixqmydmy67-11-3426 13:17-0400Respiratory rate18 /minLisa Aichholz HEALTH ANALYST Work Phone: [facility]. [facility] CenterSstfiokvht28-82-6764 13:17-1923AlV6% (BldA) [Mass fraction]96 %Jessica Aichholz HEALTH ANALYST Work Phone: [facility] CenterZybyzemqsa97-68-7317 13:17-0400Systolic blood zwleatoj386 mm[Hg]Jessica Sosa HEALTH ANALYST Work Phone: [facility] CenterJzwzicxgqh41-65-5925 13:22-0400Diastolic blood hqpltseu35 mm[Hg]Jessica Elianaz HEALTH ANALYST Work Phone: [facility] CenterZvqjyrtzok57-29-9876 13:22-0400Heart rate88 /min Jessica Elianaz HEALTH ANALYST Work Phone: [facility] CenterXtwsispcsa98-77-4238 13:22-0400Systolic blood vfkemqmt083 mm[Hg]Jessica Monroyz HEALTH ANALYST Work Phone: [facility] CenterZbunviojfh71-75-0117 13:05-0400Body mass index (BMI) [Ratio]33.33 kg/m2Lisa Kelsiholz HEALTH ANALYST Work Phone: [facility] CenterBuextmurjz87-24-0263 13:05-0400Body temperature 98.1 [degF]Jessica Monroyz HEALTH ANALYST Work Phone: [facility] CenterSyfraqlndf18-68-5691 13:05-0400Body .09 kgLisa Kelsiholz HEALTH ANALYST Work Phone: [facility] CenterCvpqpgekvy52-71-4878 13:05-0400Respiratory rate18 /minLisa Dolanholz HEALTH ANALYST Work Phone: [facility] CenterVzognxemjq90-54-5742 13:05-3321JzO5% (BldA) [Mass fraction]96 %Jessica Monroyz HEALTH ANALYST Work Phone: [facility] CenterKdfdbuxhqo12-82-0620 13:12-0500Body mass index (BMI) [Ratio]33.13 kg/m2Lisa Levhholz HEALTH ANALYST Work Phone: [facility] CenterFnpjphwysd90-66-1349 13:12-0500Body temperature 98.1 [degF]Jessica Kelsiholz HEALTH ANALYST Work Phone: [facility] CenterAvjebkcglr84-33-5366 13:12-0500Body .54 kgLisa Kelsiholz HEALTH ANALYST Work Phone: [facility] CenterZxkeewxlwi05-45-5446 13:12-0500Diastolic blood nmoxtarv48 mm[Hg]Jessica Kelsiholz HEALTH ANALYST Work Phone: [facility] CenterSkavpxheja66-54-5941 13:12-0500Heart rate98 /min Jessica Aichholz HEALTH ANALYST Work Phone: [facility] CenterNmrcqpgwcg24-69-7905 13:12-0500Respiratory rate20 /minLisa Kelsiholz HEALTH ANALYST Work Phone: 1(504)788-[address] [place], [place] [address]Maqhmlwkwb39-20-9969 13:12-2905XvH9% (BldA) [Mass fraction]97 %Jessica Kelsiholz HEALTH ANALYST Work Phone: [facility] CenterCgjpxmbxed42-89-9237 13:12-0500Systolic blood mm[Hg]Jessica Levhholz HEALTH ANALYST Work Phone: [facility] CenterStatesuscw18-60-7430 14:56-0500Diastolic blood mm[Hg]Jessica Levhholz HEALTH ANALYST Work Phone: [facility] CenterRlqzdnsmgp45-67-1836 14:56-0500Systolic blood xejjjsev454 mm[Hg]Jessica Levhholz HEALTH ANALYST Work Phone: [phone]-[facility] CenterIcpgjjqvlc05-47-3008 14:26-0500Body difbpl988.6 cmLisa Levhholz HEALTH ANALYST Work Phone: [facility] CenterBgaokkcsmr29-03-9293 14:26-0500Body mass index (BMI) [Ratio]32.68 kg/m2Lisa Lvehholz HEALTH ANALYST Work Phone: [facility] CenterQwuscpznxd83-77-6395 14:26-0500Body temperature 98.49 [degF]Jessica Levhholz HEALTH ANALYST Work Phone: 1(401)770-[address] [place], [place] [address]Fzivqzkdwo23-00-0010 14:26-0500Body eioowc98.36 kgLisa Aichholz HEALTH ANALYST Work Phone: [facility] CenterHcrmdzgdyi05-37-1607 14:26-0500Heart rate86 /min Jessica Ian HEALTH ANALYST Work Phone: [facility] CenterEwhonqscpa30-73-0259 14:26-0500Respiratory rate18 /minLisa Kelsiholz HEALTH ANALYST Work Phone: [facility] CenterLwnlpsveul72-08-3705 14:26-8706CkR0% (BldA) [Mass fraction]96 %Jessica Monroyz HEALTH ANALYST Work Phone: [facility] CenterJddbfooaoz34-30-6231 16:36-0400Body gvqhry556.2 cmLisa Elianaz HEALTH ANALYST Work Phone: [facility] CenterKeoncukvdz62-70-7573 16:36-0400Body mass index (BMI) [Ratio]29.6 kg/m2Nyasa Elianaz HEALTH ANALYST Work Phone: [facility] CenterVrxonnzsma94-84-5944 16:36-0400Body temperature 97.81 [degF]Jessica Monroyz HEALTH ANALYST Work Phone: [facility] CenterPxtoyqpxux64-24-9688 16:36-0400Body pwewie82.73 kgLisa Ian HEALTH ANALYST Work Phone: [facility] CenterPfbfgadpvk70-96-6723 16:36-0400Diastolic blood mm[Hg]Jessica Sosa HEALTH ANALYST Work Phone: [facility] CenterIxfuuxccdi46-72-4107 16:36-0400Heart rate80 /min Jessica Monroyz HEALTH ANALYST Work Phone: [facility] CenterNecbgbuowa00-27-8842 16:36-0400Respiratory rate18 /minLisa Elianaz HEALTH ANALYST Work Phone: [facility] CenterZdhkfyczfx79-71-4393 16:36-5921AxI6% (BldA) [Mass fraction]96 %Jessicaesmer Monroyz HEALTH ANALYST Work Phone: [facility] CenterAbuzhdxisb74-71-6633 16:36-0400Systolic blood vhocioko073 mm[Hg]Jessica Elianaz HEALTH ANALYST Work Phone: [facility] CenterEtekxmtzmb56-90-4823 13:05-0400Body wpknem395.2 Mariela Sosa HEALTH ANALYST Work Phone: [place] [address]Fpepsscrnb27-38-2846 13:05-0400Body mass index (BMI) [Ratio]29.82 kg/m2Jessica Sosa HEALTH ANALYST Work Phone: [place] [address]Cnfwohgmuc18-81-7470 13:05-0400Body temperature 97.3 [degF]Jessica Sosa HEALTH ANALYST Work Phone: 1(576)668-[address] [place], [place] [address]Vgqwvylhau93-02-7096 13:05-0400Body yofvgq48.36 kgJessica Sosa HEALTH ANALYST Work Phone: [place] [address]Zemgzunrid59-39-9723 13:05-0400Diastolic blood mm[Hg]Jessica Sosa HEALTH ANALYST Work Phone: [place] [address]Cvhgkvzzgk80-99-9448 13:05-0400Heart rate82 /min Jessica Sosa HEALTH ANALYST Work Phone: 1(282)376-[address] [place], [place] [address]Akkuzxbkaf22-10-8445 13:05-0400Respiratory rate18 /minJessica Sosa HEALTH ANALYST Work Phone: [place] [address]Enmgkoxmig43-12-5807 13:05-3424QoR8% (BldA) [Mass fraction]96 %Jessica Sosa HEALTH ANALYST Work Phone: [place] [address]Rmkjelbzuv54-38-6842 13:05-0400Systolic blood mm[Hg]Jessica Sosa HEALTH ANALYST Work Phone: 1(317)606-[address] [place], [place] [address]Slpsvwjmtg60-95-3293 15:36-0400Blood Pressure LocationJENNIFER ISABELLA [facility]09-14-2022 15:36-0400Diastolic blood hvybygwb32 mm[Hg]LINDA ISABELLA [facility]09-14-2022 15:36-0400Heart gprx673 /minJENNIFER ISBAELLA [facility]09-14-2022 15:36-0400Systolic blood hyqnpnkf748 mm[Hg]LINDA MASON [facility] Encounters Encounter DateEncounter TypeCare ProviderFacilityStart: 12-30-2024 End: 74-00-6324zckxifxixdKyei J Aichholerin HEALTH ANALYST-C Work Phone: [facility] ClydeStart: 12-30-2024 End: 27-37-1416Xfxucbn encounter procedureLisa Gabi Sosa HEALTH ANALYST-C-[facility] Work Phone: Start: 11-05-2024 End: 48-01-1032cwtsikzonyNqfy Gabi Oharahholz HEALTH ANALYST-C Work Phone: [facility] Work Phone: Start: 11-05-2024 End: 61-07-7663Pviidvv encounter procedureLisa Gabi Oharahholz HEALTH ANALYST-C-[facility] Work Phone: Start: 24-48-0928Yzjwvzu encounter procedureLisa Oharahholz HEALTH ANALYST-C Work Phone: [facility] Systemtart: 08-05-2024 End: 81-52-5284Phfokt flowsheetLisa Levhholz HEALTH ANALYST Work Phone: [facility] CWM FMStart: 08-05-2024 End: 90-55-7853Cspbqe flowsheetLisa Aichholz HEALTH ANALYST Work Phone: [facility] CWM FMStart: 08-05-2024 End: 02-67-5989Pkrvjw outpatient visit 25 minutesLisa Levhholz HEALTH ANALYST Work Phone: [facility] CWM FMComment on above:Primary hypertension (Primary Dx); Overweight (BMI 25.0-29.9); Anxiety and depression ; Mixed hyperlipidemia ; Hypothyroidism, unspecified type ; Primary insomnia; Candidiasis; Osteopenia, unspecified location; Mild episode of recurrent major depressive disorder ; Allergic rhinitis, unspecified seasonality, unspecified triggerStart: 08-05-2024 End: 36-71-5399exuobitlwzRUDR AICHHOLZNot AvailableStart: 07-25-2024 End: 18-00-6411YrcdqlBvyg Aichholz HEALTH ANALYST Work Phone: [facility] CWM FMComment on above:Skin candidiasisStart: 06-03-2024 End: 50-37-9209Uaukwi flowsheetLisa Aichholz HEALTH ANALYST Work Phone: NOUC CWM FMStart: 06-03-2024 End: 09-14-4885Dbqfue flowsheetLisa Aichholz HEALTH ANALYST Work Phone: NOQE CWM FMStart: 06-03-2024 End: 45-10-2374ypdclkwgrcPFOK AICHHOLZNot AvailableStart: 06-03-2024 End: 70-38-7849Xcntvk outpatient visit 25 minutesLisa Aichholz HEALTH ANALYST Work Phone: NOWL CWM FMComment on above:Mild episode of recurrent major depressive disorder (HCC) (CMS/HCC) (Primary Dx); Obstructive sleep apnea; Primary hypertension (CMS/HCC); Hypothyroidism, unspecified type (CMS/HCC); Primary insomnia; Osteopenia, unspecified locationStart: 04-22-2024 End: 92-96-6116Qvggka flowsheetLisa Aichholz HEALTH ANALYST Work Phone: NOFP CWM FMStart: 04-22-2024 End: 55-47-5451Pgcpye flowsheetLisa Aichholz HEALTH ANALYST Work Phone: NOWA CWM FMStart: 04-22-2024 End: 89-62-9085Suwtgt outpatient visit 25 minutesLisa Aichholz HEALTH ANALYST Work Phone: [facility] CWM FMComment on above:Primary hypertension (CMS/HCC) (Primary Dx); Overweight (BMI 25.0-29.9); Anxiety and depression (CMS/HCC); Obstructive sleep apnea; Primary insomniaStart: 04-22-2024 End: 42-59-5672yqlenfghwvHZJM AICHHOLZNot AvailableStart: 04-15-2024 End: 44-98-3901Tuqpaqkjp Result EncounterLisa Aichholz HEALTH ANALYST Work Phone: noms External Department UnsolicitedStart: 04-15-2024 End: 09-50-4459Nguiiylfx Result EncounterLisa Aichholz HEALTH ANALYST Work Phone: noms External Department UnsolicitedStart: 04-04-2024 End: 45-16-4795Bqwdtilmp Result EncounterLisa Aichholz HEALTH ANALYST Work Phone: noms External Department UnsolicitedStart: 04-04-2024 End: 63-81-1397Xhaqauccw Result EncounterLisa Aichholz HEALTH ANALYST Work Phone: noms External Department UnsolicitedStart: 03-25-2024 End: 62-44-4735Uhvxky outpatient visit 25 minutesLisa Aichholz HEALTH ANALYST Work Phone: noms CWM FMComment on above:Primary hypertension (CMS/HCC) (Primary Dx); Obstructive sleep apnea; Hypothyroidism, unspecified type (CMS/HCC); Overweight (BMI 25.0-29.9); Osteopenia, unspecified location; Anxiety and depression (CMS/HCC); Asymptomatic microscopic hematuria; Vitamin D deficiency; Mixed hyperlipidemia (CMS/HCC); Needs flu shot; Allergic rhinitis, unspecified seasonality, unspecified triggerStart: 03-25-2024 End: 32-26-8883qarkvctpgeLGDF AICHHOLZNot AvailableStart: 03-25-2024 End: 44-31-4941Smyaeh flowsheetLisa Aichholz HEALTH ANALYST Work Phone: noms CWM FMStart: 03-25-2024 End: 00-95-8166Icygpk flowsheetLisa Aichholz HEALTH ANALYST Work Phone: n[facility] CWM FMStart: 12-20-2023 End: 68-32-8065avykcrwhmuJNZY AICHHOLZNot AvailableStart: 12-20-2023 End: 90-18-8649Fnlvnh flowsheetJessica Dolanholerin HEALTH ANALYST Work Phone: noms CWM FMStart: 12-20-2023 End: 51-27-9846Pruosu flowsheetJessica Dolanholz HEALTH ANALYST Work Phone: noms CWM FMStart: 12-20-2023 End: 17-45-1084Rcvsxum encounter procedureLisa Dolanholz HEALTH ANALYST Work Phone: noms CW FMComment on above:Encounter for subsequent annual wellness visit (AWV) in Medicare patient (Primary Dx); Obesity (BMI 30-39.9); Hypothyroidism, unspecified type (CMS/HCC); Mixed hyperlipidemia (CMS/HCC); Anxiety and depression (CMS/HCC); Overweight (BMI 25.0-29.9); Obstructive sleep apnea; Osteopenia, unspecified location; Post-menopausalStart: 10-27-2023 End: 37-00-1663Kuafavuzv Result EncounterLisa Monroyz HEALTH ANALYST Work Phone: noms External Department UnsolicitedStart: 10-27-2023 End: 85-72-5161Nvsklhbrx Result EncounterLisa Monroyz HEALTH ANALYST Work Phone: noms External Department UnsolicitedStart: 10-18-2023 End: 26-65-9442Vbeldv flowsheetJessica Dolanholz HEALTH ANALYST Work Phone: noms CWM FMStart: 10-18-2023 End: 60-31-6539Hdchmt flowsheetLisa Dolanholz HEALTH ANALYST Work Phone: noms CW FMStart: 10-18-2023 End: 79-79-3964Exvnok outpatient visit 15 minutesLisa Dolanholz HEALTH ANALYST Work Phone: noms CW FMComment on above:Encounter for screening mammogram for malignant neoplasm of breast; Osteopenia, unspecified location; Anxiety and depression (CMS/HCC); Allergic rhinitis, unspecified seasonality, unspecified trigger; Vitamin D deficiency; Hypothyroidism, unspecified type ([facility]); Urinary incontinence in female; Mixed hyperlipidemia ([facility]); Obesity (BMI 30-39.9); Obstructive sleep apneaStart: 10-18-2023 End: 71-77-6876yqsaphtodoXLCO AICHHOLZNot AvailableStart: 11-09-2022 End: 48-69-8015fjxmfaylqfGXEWUETE E PERRYFacility:EU BellevueStart: 11-09-2022 End: 78-93-3727Jphgtjf encounter procedureJENNIFER E ISABELLA [facility] start: 78-09-8866gsghcsjsvhFRD JESSICA AICHHOLZFacility:H1 Start: 05-25-2022 End: 17-93-8504ctwrjjnokzLUT JESSICA AICHHOLZFacility:Z6Jjsfd: 05-09-2022 End: 78-59-7506tvxmmpjrncFHQ JESSICA AICHHOLZFacility:R5Ssjaq: 05-02-2022 End: 58-54-7656wffogegemeDSZ JESSICA AICHHOLZFacility:R0Gxmhz: 03-11-2022 End: 67-40-1342xgffjdjuofEacl J Aichholz Work Phone: [facility] Work Phone: Start: 03-11-2022 End: 06-35-6370Ppwkmhr encounter procedureLisa Aichholz Work Phone: [facility] Work Phone: Start: 12-08-2021 End: 71-91-8179nlkfldefufWFF JESSICA AICHHOLZFacility:B8Tbpwq: 11-03-2021 End: 19-17-1390Vgqlihz encounter procedureJENNIFER E ISABELLA [facility] start: 08-09-2021 End: 21-61-9181mbkqwajevbJMN JESSICA IANFacility:M6Krnjn: 06-24-2021 End: 32-70-6723wcgifaudkaXYK JESSICA AICHHOLZFacility:D2Mnqhu: 03-18-2021 End: 22-87-6276engxfiqvggDZ NIDHI MICHAELSFacility:[facility]: 01-26-2021 End: 13-41-7820Pmmpbhfow department patient visitMD NIDHI MICHAELS [facility] 03-05-2019 End: 56-76-4815Afizeuh encounter procedureHANI SAADFacility:[facility]art: 01-16-2017 End: 31-45-2612WfymfpnkixCloydHazel MccoyFacility:[facility]tart: 12-12-2016 End: 11-70-6204ZhtpzpzrsfVrsuiHazel MccoyFacility:[facility] Hospitaltart: 12-10-2016 End: 05-41-7697VuczvobagnWklwk Andrew HuddlestonFacility:[facility] Procedures DateProcedureProcedure DetailPerforming ClinicianStart: 15-42-9971WLB UA (CLEAN/CATCH) MICROSCOPIC IF INDICATELisa Levhholz HEALTH ANALYST Work Phone: Start: 83-94-5966GP DEXA AXIAL SKELETONLisa Aichholz HEALTH ANALYST Work Phone: Start: 28-85-7927WqldlmstuqjRdla Aichholz HEALTH ANALYST Work Phone: Start: 17-19-9681DX TOMOSYNTHESIS SCREENING BILisa Aichholz HEALTH ANALYST Work Phone: Start: 00-51-0361AlkiehtqfnzHzxt Aichholz HEALTH ANALYST Work Phone: Start: 05-86-2192Hzgjg chest X-rayLisa Aichholz Work Phone: Start: 34-36-3130Qeffev of stress incontinence by suprapubic slingJENNIFER ISABELLA Start: 86-22-2285Yurkfowwykbhanyst and dilation of bladderJENNIFER ISABELLA Start: 26-57-7465TfxpsctojclJIUHUGRX ISABELLA Start: 86-97-7530HmhncxafykwQonb Aichholz HEALTH ANALYST Work Phone: Start: 75-88-0154ijtp synovectomy to Achilles tendon as well as left Blanca's exostectomy with heel spur excision with application of cork screw anchor and left posterior splintJENNIFER ISABELLA Start: 81-37-6203rjgg Blanca's calcaneal exostectomy with Arthrex 3.5 mm curved corkscrews tendon anchor. Synovectomy, left Achilles tendon 1JENNIFER ISABELLA Comment on above:posterior splint to the left legStart: 37-77-7314Rtlt percutaneous achilles tenotomyJENNIFER ISABELLA Start: 38-79-4581JvljjlwmlhPYEGAFSE ISABELLA Start: 55-84-8958FhdabwuzewzdTHVZUCPH ISABELLA Bilateral tubal ligationJENNIFER ISABELLA CholecystectomyJENNIFER ISABELLA Comment on above:2012elbowJENNIFER ISABELLA elbow surgery 3JENNIFER ISABELLA Comment on above:leftHysterectomyJENNIFER ISABELLA neck surgery 4JENNIFER ISABELLA Comment on above:2010Tarsal tunnel releaseJENNIFER ISABELLA Comment on above:leftwrist surgery 6JENNIFER ISABELLA Comment on above:left Plan of Treatment DateCare ActivityDetailAuthorStart: 36-91-1827Bdxtpjcsj for malignant neoplasm of colonNOMS HealthcareStart: 10-30-2025Medicare Annual Wellness (AWV)Medicare Annual Wellness (AWV)[facility] HealthcareStart: 11-05-2024 End: 38-34-2039Rbhbzbg encounter lfwomavqa08/16/2025 1:00 PM EDT Office Visit [facility] [address] [place] [address] Jessica Sosa, [address] [place] [address] [facility] FMStart: 20-08-3991Zdpqzpgwy for malignant neoplasm of breastMammogramNOMS HealthcareStart: 72-76-9775Dxjzcvzew vaccinationInfluenza Vaccine (#1)[facility] HealthcareStart: 08-05-2024 End: 59-72-2492Bfnvgxs encounter procedureNOMS [facility] FMComment on above:Primary hypertension (Primary Dx); Overweight (BMI 25.0-29.9); Anxiety and depression ; Mixed hyperlipidemia ; Hypothyroidism, unspecified type ; Primary insomniaStart: 06-03-2024 End: 98-13-0482Vhvbcfe encounter qjwqoksks47/14/2025 1:00 PM EDT Office Visit [facility] [address] [place] [address] Jessica Sosa, [address] [place] [address] [facility] FMStart: 04-22-2024 End: 39-09-7653Pjgocbl encounter procedureNOMCCURTAIN [facility]OR[facility] FMComment on above:Primary hypertension (CMS/HCC) (Primary Dx); Overweight (BMI 25.0-29.9)Start: 03-25-2024 End: 93-11-3848Mnawcoz encounter deltjxlbn47/03/2025 2:20 PM EST [facility] [address] [place] [address] Jessica Sosa, HEALTH ANALYST [address] [place] [address] Obstructive sleep apnea (Primary Dx); Hypothyroidism, unspecified type (CMS/HCC); Overweight (BMI 25.0-29.9); Osteopenia, unspecified location; Anxiety and depression (CMS/HCC); Asymptomatic microscopic hematuria; Vitamin D deficiency; Mixed hyperlipidemia (CMS/HCC)[facility] FMComment on above: Obstructive sleep apnea (Primary Dx); Hypothyroidism, unspecified type (CMS/HCC); Overweight (BMI 25.0-29.9); Osteopenia, unspecified location; Anxiety and depression (CMS/HCC); Asymptomatic microscopic hematuria; Vitamin D deficiency; Mixed hyperlipidemia (CMS/HCC)Start: 03-25-2024 End: 057902-xftlafwjcwycdh D3 [Mass/volume] in Serum or PlasmaVitamin D 25 hydroxy Lab Routine Vitamin D deficiency Expected: 03/25/2024 (Approximate), Expires: 03/25/2025[facility] HealthcareComment on above:Expected: 03/25/2024 (Approximate), Expires: 03/25/2025Start: 03-25-2024 End: 96-83-4991FRJ W Auto Differential panel - BloodCBC and differential Lab Routine Obstructive sleep apnea Hypothyroidism, unspecified type (CMS/HCC) Asymptomatic microscopic hematuria Expected: 03/25/2024 (Approximate), Expires: 03/25/2025[facility] Work Phone: Comment on above:Expected: 03/25/2024 (Approximate), Expires: 03/25/2025Start: 03-25-2024 End: 03-03-9495Warajrxoveywr metabolic 2000 panel - Serum or PlasmaComprehensive metabolic panel Lab Routine Hypothyroidism, unspecified type (CMS/HCC) Overweight (BMI 25.0-29.9) Osteopenia, unspecified location Expected: 03/25/2024 (Approximate), Expires: 03/25/2025[facility] HealthcareComment on above:Expected: 03/25/2024 (Approximate), Expires: 03/25/2025Start: 03-25-2024 End: 36-99-8796Komrw 1996 panel - Serum or PlasmaLipid panel Lab Routine Mixed hyperlipidemia ([facility]/HCC) Expected: 03/25/2024 (Approximate), Expires:03/25/2025 [facility] HealthcareComment on above:Expected: 03/25/2024 (Approximate), Expires: 03/25/2025Start: 03-25-2024 End: 40-33-9777Mappmevxkys [Units/volume] in Serum or PlasmaTSH Lab Routine Hypothyroidism, unspecified type ([facility]/HCC) Expected: 03/25/2024 (Approximate), Expires: 03/25/2025N[facility] HealthcareComment on above:Expected: 03/25/2024 (Approximate), Expires: 03/25/2025Start: 03-25-2024 End: 40-93-7954Hzgttnudy (T4) free [Mass/volume] in Serum or PlasmaT4, free Lab Routine Hypothyroidism, unspecified type ([facility]) Expected: 03/25/2024 (Approximate),Expires: 03/25/2025N[facility] HealthcareComment on above:Expected: 03/25/2024 (Approximate), Expires: 03/25/2025Start: 03-25-2024 End: 95-66-4850Lkzqeclxhv complete panel - UrineUrinalysis with reflex microscopic (clean catch) Lab Routine Asymptomatic microscopic hematuria Expe cted: 03/25/2024 (Approximate), Expires: 03/25/2025N[facility] HealthcareComment on above:Expected: 03/25/2024 (Approximate), Expires: 03/25/2025Start: 12-21-2023 Influenza vaccinationInfluenza Vaccine (#1)[facility] HealthcareComment on above: Postponed from 10/22/2023 (Patient Refused)Start: 12-20-2023 End: 66-99-3779Jocemto encounter procedureNOMS CWM FMComment on above:Arrived Start: 12-20-2023 End: 79-82-1227ZGU Skeletal system Views for bone densityDEXA bone density Imaging Routine Osteopenia, unspecified location Post-menopausal Expected: 12/20/2023 (Approximate), Expires: 12/19/2024[facility] Work Phone: Comment on above:Expected: 12/20/2023 (Approximate), Expires: 12/19/2024Start: 10-26-2024Medicare Annual Wellness (AWV)Medicare Annual Wellness (AWV)[facility] HealthcareStart: 59-08-5026Qwsmhktmn vaccination Influenza Vaccine (#1)[facility] HealthcareStart: 10-18-2023 End: 95-69-3352PJ Breast - bilateral ScreeningBilateral screening mammogram Imaging Routine Encounter for screening mammogram for malignant neoplasm of breast Expected: 10/18/2023 (Approximate), Expires: 12/17/2024[facility] Work Phone: Comment on above:Expected: 10/18/2023 (Approximate), Expires: 12/17/2024Start: 48-47-0554Bfepkrfjp for malignant neoplasm of breast MammogramT[facility] HealthcareStart: 08-02-1955Medicare Annual Wellness (AWV)Medicare Annual Wellness (AWV)[facility] HealthcareStart: 63-96-4421Jdkpngkzc for malignant neoplasm of colonNOOR HealthcareMG Breast - [facility]eningL[facility] Immunizations Immunization DateImmunizationNotesCare HwrgscgoSavivjzv92-28-1012Qcylxanw trivalent influenza vaccine, adjuvanted, preservative freeLisa Aichholz HEALTH ANALYST Work Phone: [facility] CenterCnfwcwgmht37-85-6327pfthaofcn virus vaccine, unspecified formulationLisa Aichholz HEALTH ANALYST Work Phone: [facility] CenterGxmrobxxwf38-28-7876Qrxgljxuy, High-dose Seasonal, Quadrivalent, Preservative FreeLisa Aichholz HEALTH ANALYST Work Phone: [facility] CenterGncjizvspu57-76-0254flaegapte virus vaccine, unspecified formulationLisa Aichholz HEALTH ANALYST Work Phone: [facility] Healthcare Payers DatePayer CategoryPayerPolicy [id number] HEALTHCARE MEDICARE [employer] [place] [id number] 2022-Present [address] [place] [id number] 2023Medicare (Managed Care)[employer] MEDICARE Member Subscriber Plan / Payer (Effective 2022-Present) Name: Claudette Ross Relation to Subscriber: Self Name: Claudette Ross Payer ID: [id number] (NAIC) Group ID: Not on file Type: Not on file Address: [address] [place] [id number] Health [id number]-ejs [id number] 2021Unknown2020Medicaid2018Unknown [id number] [id number] Health Insurance [id number] [id number] 2..1.471174.3.579.2.51633-57-2624Lgqlpgq [id number] ..1.568239.3.57[id number] 2..1.827399.3.579.2.50033-61-7276Ntvgsyw8965496 2..1.933484.3.579.[id number] 2..1.516338.3.57[id number] 2.840.1.137331.3.579.2.25333-75-7763Ptguynp8701948 2.16840.1.507552.3.579.2.16473-59-6583Xdbwfiy3782102 2.840.1.453541.3.579.2.11282-12-5704Vklwmov3774335 2.0.1.364568.3.579.[id number] 2.840.1.625829.3.579.2.37175-87-8669Cvueghe35044988 2.0.1.769161.3.57[id number] 2.0.1.904148.3.57[id number] 2.0.1.576167.3.579.2.464216-98-7848Koakvnj1407192 2.0.1.663190.3.579.2.071256-29-7440Mkakbwe7695459 2..1.426605.3.579.2.063555-03-9891Tkzvmls3520121 2.0.1.856773.3.579.2.278508-61-6559Yhhqywj7215114 2.0.1.887069.3.579.[id number] Health [id number] 2.840.1.097489.3.579.2.531 Social History DateTypeDetailFacilityStart: 11-03-2021 End: [id number] smoking statusNever smoked tobacco (finding)[facility] Hospitaltart: 03-28-2023 End: [id number] Assigned At [facility] start: [id number] Assigned At [facility]tart: [id number] use and exposureSmokeless tobacco non-userNOMS HealthcareStart: 10-18-2023 End: [id number] beverage intakeLifetime non-drinker (finding)NOMS HealthcareStart: 03-28-2023 End: 56-10-4146Asayolt of Social functionNOMS HealthcareWithin the last year, have you been afraid of your partner or ex-partner?NoNOMS HealthcareAre you now , , , , never or living with a partner? DivorcedNOMS HealthcareHow often to you have a drink containing alcohol?Never NOMS HealthcareStart: 59-90-3040Krd many standard drinks containing alcohol do you have on a typical day?Patient does not drinkNOMS HealthcareHow hard is it for you to pay for the very basics like food, housing, medical care, and heating Not very hardNOMS HealthcareDo you feel stress - tense, restless, nervous, or anxious, or unable to sleep at night because yourmind is troubled all the time - these days [OSQ]Only a littleNOMS Healthcare(I/We) worried whether (my/our) food would run out before (I/we) got money to buy more.Never trueNOMS Healthcare The food that (I/we) bought just didn't last, and (I/we) didn't have money to get more.Sometimes trueNOMS HealthcareIn the past 12 months, was there a time when you were not able to pay the mortgage or rent on time?YesNOMS Healthcare Start: 08-71-8335Wwqnbhf Commentcaffeine yes type:tea 1cup dailyNOMS Healthcare Start: 53-99-5331Fgg assigned at birthNot on [facility] CenterTobacc smoking status NHISUnknown if ever smokedPeoples Hospital Work Phone: SexFemale (finding)[facility] NEGATED: Highlighted rowStart: NINFHistory of tobacco usePassive smokerSt. [facility] Medical [facility] Functional Status QlqnXvemcfhatyIyoywhBtyicxpb80-18-1845Wlsiiigyp depression scale (GDS).short version [facility] HospitalSczxgqbzvc21-55-9290Qcakplp Health Questionnaire 2 item (PHQ- 2) [Reported][facility] CenterQepzsvjqtx99-28-8203Xiz difficult have these problems made it for you to do your work, take care of things at home, or get along with other people?Not difficult at all 12/20/2023 4:38 PM EDT Dorcas Park MA Not difficult at [facility] HospitalVdenrbylno30-22-4302Pfnkrhxzio StatusN/AExec[facility] Clinical Notes 01-26-2021 to 11-05-2024 Note Date & [id number] Evaluation note* Diagnosis Onset Date Resolution Status Admit Date Breast cancer screening by mammogram acuteSeptember 2024 12:57pmEssential hypertensionacuteSeptember 2024 12:57pmGAD (generalized anxiety disorder)acuteSeptember 2024 12:57pm Hypothyroidism (acquired)acuteSeptember 2024 12:57pmInsomniaacuteSeptember 2024 12:57pmMajor depressive disorder, recurrent, mildacuteSeptember 2024 12:57pmDizzinessacuteNovember 2024 10:45amEncounter for subsequent annual wellness visit (AWV) in Medicare patientacuteNovember 2024 10:45amEssential hypertensionacuteNovember 2024 10:45amGAD (generalized anxiety disorder)acuteNovember 2024 10:45amHypothyroidism (acquired)acuteNovember 2024 10:45amOsteopeniaacuteNovember 2024 10:45amOverweightacuteNovember 2024 10:45am [facility] Work Phone: [phone] 892-473806-16-2025 History of Present illness Narrative* Jessica Ian, HEALTH ANALYST - 08/05/2024 1:20 PM EDT Images from the original note were not [...] blockers. The current treatment provides significant improvement. Thereare no compliance problems. SUBJECTIVE: MEDICATIONS: Current Outpatient Medications Medication Instructions alendronate (FOSAMAX) 70 mg, Oral, Every 7 days, Take in the morning with a full glass of water, bienvenido empty stomach, and do not take anything [...] OTHER SURGICAL HISTORY Right hav 5th ht GA REVISE ULNAR NERVE AT [place] Right 04/04/2018 [...] 25.0-29.9) Candidiasis Relevant Medications nystatin (Mycostatin) cream * Jessica Sosa NP - 08/05/2024 6:59 AM EDTAssociated Problem(s): Insomnia Current med: amitriptyline * Jessica Sosa NP - 08/05/2024 6:58 AM EDTAssociated Problem(s): Hypothyroidism Current meds: levothyroxine Check labs yearly and prn dose changes, or changes in symptoms * Jessica Sosa NP - 08/05/2024 6:58 AM EDTAssociated Problem(s): Mixed hyperlipidemia On statin Check labs yearly and prn dose changes * Jessica Sosa NP - 08/05/2024 6:58 AM EDTAssociated Problem(s): Anxiety and depression Current meds: abilify, buspar, sertaline and elavil Recent loss of prior significant other, as well as ex * Jessica Sosa NP - 08/05/2024 6:57 AM EDTAssociated Problem(s): Hypertension Please check blood pressure daily and record DASH diet Limit caffeine Take medication as directed Contact office if chest pain, pressure, dizziness, shortness of breath, swelling legs Recommend slow position changes Current med: losartan documented in this [facility]06-16-2025 Instructions* Patient Instructions* Jessica Sosa NP - 08/05/2024 1:20 PM EDT No medication changes documented in this [facility]04-14-2025 History of Present illness Narrative* Jessica Sosa NP - 06/03/2024 1:26 PM EDTAssociated Problem(s): Mild episode of recurrent major depressive disorder (HCC) ([facility]/HCC) At this point, possible depression leading the fatigue situation Does not want to do her house chores, or doing things that bring her rianna Will increase aripiprazole to 5mg fu in 8 weeks * Jessica Sosa NP - 06/03/2024 1:25 PM EDTAssociated Problem(s): Osteopenia Refill foxamax * Jessica Sosa NP - 06/03/2024 1:00 PM EDT Images from the original note were not [...] palpitations, peripheral edema or shortness of breath. Thereare no associated agents to hypertension. Risk factors [...] morning with a full glass of water, bienvenido empty stomach, and do not take anything [...] OTHER SURGICAL HISTORY Right hav 5th ht GA REVISE ULNAR NERVE AT [place] Right 04/04/[address] cMcoy family history includes Heart disease in her [...] of recurrent major depressive disorder (HCC) (CMS/HCC) - Primary At this point, possible depression [...] well with 10mg dose, no changes Hypertension ([facility]/HCC) Please check blood pressure daily and record DASH diet Limit caffeine Take medication as directed Contact office if chest pain, pressure, dizziness, shortness of breath, swelling legs Recommend slow position changes Current med: losartan Relevant Medications losartan (Cozaar) 25 MG tablet Osteopenia Refill foxamax Relevant Medications alendronate (Fosamax) 70 MG tablet Hypothyroidism ([facility]/HCC) Current meds: levothyroxine Check labs yearly and prn dose changes, or changes in symptoms * Jessica Sosa NP - 06/03/2024 6:49 AM EDTAssociated Problem(s): Insomnia At last appt stopped trazodone, and has been prescribed elavil Sleeping well with 10mg dose, no changes * Jessica Sosa NP - 06/03/2024 6:49 AM EDTAssociated Problem(s): Anxiety and depression (CMS/HCC) Current meds: abilify, buspar, sertaline and elavil * Jessica Sosa NP - 06/03/2024 6:48 AM EDTAssociated Problem(s): Hypothyroidism (CMS/HCC) Current meds: levothyroxine Check labs yearly and prn dose changes, or changes in symptoms * Jessica Sosa NP - 06/03/2024 6:48 AM EDTAssociated Problem(s): Hypertension (CMS/HCC) Please check blood pressure daily and record DASH diet Limit caffeine Take medication as directed Contact office if chest pain, pressure, dizziness, shortness of breath, swelling legs Recommend slow position changes Current med: losartan * Jessica Sosa NP - 06/03/2024 6:48 AM EDTAssociated Problem(s): Obstructive sleep apnea You have a [...] no further fu appts documented in this encounterSt. Joseph Medical [id number] Instructions* Patient Instructions* Jessica Sosa NP - 06/03/2024 1:00 PM EDT Increase the dose on the aripiprazole from 2mg to 5mg documented in this encounterSt. Joseph Medical [id number] History of Present illness Narrative* Jessica Sosa NP - 04/22/2024 1:31 PM ESTAssociated Problem(s): Insomnia Has ANITA, is in need of an updated sleep study Is currently taking trazodone at 100mg daily Discontinue trazodone, will trial amitriptyline 10mg Start with 1 pill at HS, if after 7 days not helping, then increase to 2 pills at HS I did discuss symptoms of worsening depression if this happens contact office * Jessica Sosa NP - 04/22/2024 1:22 PM ESTAssociated Problem(s): Obstructive sleep apnea You have a [...] is not having good toleration of things * Jessica Sosa NP - 04/22/2024 1:21 PM ESTAssociated Problem(s): Anxiety and depression (CMS/HCC) Current meds: abilify, buspar, sertaline and trazodone Does not feel her trazodone is helping her to sleep * DORCAS PARK - 04/22/2024 1:20 PM EST Pt states that the 2 50mg tabs of trazodone still does not work she was still up til 3-4am * Jessica Sosa NP - 04/22/2024 1:20 PM EST Images from the original note were not [...] negatives include no blurred vision, chest pain, headaches,palpitations, peripheral edema or shortness of breath. There [...] fever, headaches, joint swelling, myalgias, nausea, rash, sorethroat, vertigo, visual change or vomiting. The symptoms are aggravated by stress. Treatments tried: trazodone. SUBJECTIVE: MEDICATIONS: Current Outpatient Medications Medication Instructions alendronate (FOSAMAX) 70 mg, Oral, Every 7 days, Take in the morning with a full glass of water, bienvenido empty stomach, and do not take anything [...] OTHER SURGICAL HISTORY Right hav 5th ht GA REVISE ULNAR NERVE AT [place] Right 04/04/2018 [...] losartan at 25mg daily Overweight (BMI 25.0-29.9) * Jessica Sosa NP - 04/22/2024 6:58 AM ESTAssociated Problem(s): Hypertension (CMS/HCC) Please check blood pressure daily and record DASH diet Limit caffeine Take medication as directed Contact office if chest pain, pressure, dizziness, shortness of breath, swelling legs Recommend slow position changes At last appt started losartan at 25mg daily, significant improvement Will cont losartan at 25mg daily documented in this [facility]03-03-2025 Instructions* Patient Instructions* Jessica Sosa NP - 04/22/2024 1:20 PM EST Discontinue trazodone for sleep We will trial amitriptyline 10mg: start with 1 pill at bedtime, if after 7 days if it is not helping you sleep, then increase to 2 pills (total of 20mg) documented in this [facility]02-03-2025 History of Present illness Narrative* Jessica Sosa NP - 03/25/2024 2:59 PM ESTAssociated Problem(s): Hypertension (CMS/HCC) Please check blood pressure daily and record DASH diet Limit caffeine Take medication as directed Contact office if chest pain, pressure, dizziness, shortness of breath, swelling legs Recommend slow position changes Will start losartan at 25mg daily Fu in 4 weeks for recheck 1 week prior to appt get labs completed * Jessica Sosa NP - 03/25/2024 2:43 PM ESTAssociated Problem(s): Needs flu shot Consent signed VIS given * Jessica Sosa NP - 03/25/2024 2:20 PM EST Images from the original note were not [...] morning with a full glass of water, bienvenido empty stomach, and do not take anything [...] OTHER SURGICAL HISTORY Right hav 5th ht GA REVISE ULNAR NERVE AT [place] Right 04/04/2018 [...] Relevant Orders Flu vaccine, trivalent, adjuvanted, PF ([id number]) (Fluad trivalent single dose syringe) * Jessica Sosa NP - 03/25/2024 7:06 AM ESTAssociated Problem(s): Mixed hyperlipidemia (CMS/HCC) On statin Check labs yearly and prn dose changes * Jessica Sosa NP - 03/25/2024 7:01 AM ESTAssociated Problem(s): Anxiety and depression (CMS/HCC) Current meds: abilify, buspar, sertaline and trazodone PHQ 9= 5 LATA 7=1 * Jessica Sosa NP - 03/25/2024 7:01 AM ESTAssociated Problem(s): Osteopenia DEXA 06/24/2021 Current med: fosamax * Jessica Sosa NP - 03/25/2024 7:00 AM ESTAssociated Problem(s): Hypothyroidism (CMS/HCC) Current medication : levothyroxine Check labs yearly and prn dose changes or changes in symptms * Jessica Sosa NP - 03/25/2024 7:00 AM ESTAssociated Problem(s): Obstructive sleep apnea You have a [...] good toleration of things documented in this encounterSt. Joseph Medical [id number] Instructions* Patient Instructions* Jessica Sosa NP - 03/25/2024 2:20 PM EST For blood pressure: start losartan 25mg pill daily. Get labs checked in 3 weeks Low sodium diet Bone D[facility] at [facility] documented in this encounterSt. Joseph Medical [id number] History of Present illness Narrative* Jessica Sosa NP - 12/20/2023 5:10 PM EDTAssociated Problem(s): Encounter for subsequent annual wellness visit [...] office for wellness on a yearly basis * Jessica Sosa NP - 12/20/2023 5:07 PM EDTAssociated Problem(s): Osteopenia Continue w fosamax, will get an updated DEXA scan * Jessica Sosa NP - 12/20/2023 5:05 PM EDTAssociated Problem(s): Obstructive sleep apnea Picked up new PAP machine today * Jessica Sosa NP - 12/20/2023 5:00 PM EDTAssociated Problem(s): Anxiety and depression (CMS/HCC) No med dose changes * Jessica Sosa NP - 12/20/2023 5:00 PM EDTAssociated Problem(s): Mild episode of recurrent major depressive disorder (HCC) (CMS/HCC) Continue statin * Jessica Sosa NP - 12/20/2023 5:00 PM EDTAssociated Problem(s): Hypothyroidism (CMS/HCC) Continue current meds * Jessica Sosa NP - 12/20/2023 4:30 PM EDT Images from the original note were not [...] morning with a full glass of water, bienvenido empty stomach, and do not take anything [...] 04/13/2023 Allergic rhinitis 04/13/2023 Anxiety and depression ([facility]) 04/13/2023 Asymptomatic microscopic hematuria 04/13/2023 Bronchitis 04/13/2023 Cervical paraspinal muscle spasm Chest pain 04/13/2023 Class 1 obesity due to excess calories without serious comorbidity in adult 01/31/2023 DDD (degenerative disc disease), cervical 04/13/2023 Diverticulosis 04/13/2023 Dyspnea 04/13/2023 Hyperlipidemia (CMS/HCC) 04/13/2023 Hypertension ([facility]/HCC) 04/13/2023 Hypothyroidism ([facility]) 04/13/2023 Insect sting 04/13/2023 Insomnia 04/13/2023 Lumbar [...] OTHER SURGICAL HISTORY Right hav 5th ht GA REVISE ULNAR NERVE AT [place] Right 04/04/2018 [...] on a yearly basis documented in this encounterSt. Joseph Medical [id number] History of Present illness Narrative* Jessica Sosa NP - 10/18/2023 1:35 PM EDTAssociated Problem(s): Obstructive sleep apnea Still with fatigue and waiting for PAP machine Pt given number to call office to see what is hold up * Jessica Sosa NP - 10/18/2023 1:34 PM EDTAssociated Problem(s): Anxiety and depression (CMS/[facility]) Stable no med dose change * DORCAS PARK - 10/18/2023 1:00 PM EDT Anxiety and depression- pt states she is [...] falling on her left wrist-pt doing okay. * Jessica Sosa NP - 10/18/2023 1:00 PM EDT Images from the original note were not included. Claudette Ross is a 68 y.o. female presents with chief complaint of No chief complaint on file. HPI: Had sleep study in July 2023: AHI 31, desat mid 80's She still has not heard from company on getting machine. It is [employer] [phone]. I spoke with Loraine at [facility], she also does not know why machine has not been delivered I gave pt phone number and have her contact the Depression and anxiety is good as well SUBJECTIVE: MEDICATIONS: Current Outpatient Medications Medication Instructions alendronate (FOSAMAX) 70 mg, Oral, Every 7 days, Take in the morning with a full glass of water, bienvenido empty stomach, and do not take anything [...] Laterality Date ARTHROSCOPY SHOULDER / OPEN SHOULDER 2012 CARPAL TUNNEL RELEASE Left 01/16/2017 Dr. Mccoy CERVICAL FUSION Posterior cervical fusion CHOLECYSTECTOMY COLONOSCOPY 04/2010 [facility] SURGERY Tennis elbow FOOT SURGERY HAND SURGERY Right 01/17/2018 RT hand excision of duptyren nodule Dr. Mccoy HYSTERECTOMY ORIF WRIST FRACTURE OTHER SURGICAL HISTORY Right hav 5th ht GA REVISE ULNAR NERVE AT [place] Right 04/04/2018 [...] Orders Bilateral screening mammogram documented in this encounterSt. Joseph Medical [id number] NotePROCEDURE: XR HIP RT 2 3V WO PELVIS HISTORY: Pain in right hip joint , acute; no known injury COMPARISON: None. FINDINGS: BONES:No fracture, acute abnormality, or significant arthropathy. SOFT TISSUES:No visible soft tissue swelling. EFFUSION:None visible. OTHER: Negative. IMPRESSION: 1. No acute bone abnormality or significant degenerative joint disease. Electronically authenticated by: JEROME AYALA Date: 2021-12-09 06:48[facility]09-14-[facility]22 Hospital Discharge instructions Patient Education 11/03/2021 15:47:31 [...] You may also have very sensitive muscles thatmake your bladder squeeze too soon. These symptoms [...] fried and sweet foods. General instructions Take gutg-ljr-dkfcowi and prescription medicines only as told by your health care provider. If you were prescribed an antibiotic medicine, take it as told by your health care provider. Do notstop taking the antibiotic even if you start [...] 12/03/2009 Document Revised: 05/30/2019 Document Reviewed: 02/22/2018 [employer] Patient Education 2020 [email or web address]. Follow Up Care 10/15/2021 09:20:30 With:LINDA MASON PA-C, URL Address: [facility] [address] [place] [address] When:1 year [facility] 12-07-2021 NoteProcedure: Portable AP view of the chest. Clinical [...] Is Signed, Electronically Signed in Other Vendor System)[facility] SystemEvaluation + Plan note Future Appointments Appointment Date:11/09/2022 02:00:00 PM Scheduled Provider:LINDA MASON PA-C Location:[facility] Appointment Type:URO Office Visit [facility] evaluation noteNo assessment information available [facility] Work Phone: Evaluation note* Diagnosis Mild episode of recurrent major [...] status (age-related) (natural) documented in this encounter [facility] HealthcareEvaluation note* Diagnosis Encounter for screening mammogram for malignant neoplasm of breast Osteopenia, unspecified location Anxiety and depression (CMS/HCC) Allergic rhinitis, unspecified seasonality, unspecified trigger Vitamin D deficiency Hypothyroidism, unspecified type (CMS/[facility]) Urinary incontinence in female Mixed hyperlipidemia (CMS/HCC) Mixed hyperlipidemia Obesity (BMI 30-39.9) Obstructive sleep apnea Obstructive sleep apnea (adult) (pediatric) documented in this encounter [facility] HealthcareEvaluation note* Diagnosis Mild episode of recurrent major depressive disorder (HCC) (CMS/[facility])- Primary Obesity (BMI 30-39.9) Anxiety and depression ([facility])- Primary Primary hypertension ([facility]) Unspecified essential hypertension Asymptomatic microscopic hematuria Osteopenia, unspecified location Vitamin D deficiency Mixed hyperlipidemia (CMS/HCC) Mixed hyperlipidemia Hypothyroidism, unspecified type (CMS/HCC) Obesity (BMI 30-39.9) Mild episode of recurrent major depressive disorder (HCC) (CMS/[facility]) Allergic rhinitis, unspecified seasonality, unspecified trigger Skin candidiasis Candidiasis of skin and nails Obstructive sleep apnea- Primary Obstructive sleep apnea (adult) (pediatric) Allergic rhinitis, unspecified seasonality, unspecified trigger Anxiety and depression (CMS/HCC) Mixed hyperlipidemia ([facility]/HCC) Mixed hyperlipidemia Osteopenia, unspecified location Vitamin D deficiency Hypothyroidism, unspecified type (CMS/HCC) Urinary incontinence in female Primary hypertension ([facility]) Unspecified essential hypertension Skin candidiasis Candidiasis of skin and nails Class 1 obesity due to excess calories without serious comorbidity with body mass index (BMI) of 31.0 to 31.9 in adult Encounter for screening mammogram for malignant neoplasm of breast Osteopenia, unspecified location Anxiety and depression (CMS/HCC) Allergic rhinitis, unspecified seasonality, unspecified trigger Vitamin D deficiency Hypothyroidism, unspecified type ([facility]/HCC) Urinary incontinence in female Mixed hyperlipidemia (CMS/HCC) Mixed hyperlipidemia Obesity (BMI 30-39.9) Obstructive sleep apnea Obstructive sleep apnea (adult) (pediatric) Encounter for subsequent annual wellness visit (AWV) in Medicare patient- Primary Obesity (BMI 30-39.9) Hypothyroidism, unspecified type ([facility]) Mixed hyperlipidemia ([facility]/HCC) Mixed hyperlipidemia Anxiety and depression (CMS/HCC) Overweight (BMI 25.0-29.9) Overweight Obstructive sleep apnea Obstructive sleep apnea (adult) (pediatric) Osteopenia, unspecified location Post-menopausal Asymptomatic postmenopausal status (age-related) (natural) Primary hypertension (CMS/[facility])- Primary Unspecified essential hypertension Obstructive sleep apnea Obstructive sleep apnea (adult) (pediatric) Hypothyroidism, unspecified type (CMS/HCC) Overweight (BMI 25.0-29.9) Overweight Osteopenia, unspecified location Anxiety and depression (CMS/HCC) Asymptomatic microscopic hematuria Vitamin D deficiency Mixed hyperlipidemia ([facility]/HCC) Mixed hyperlipidemia Needs flu shot Need for prophylactic vaccination and inoculation against influenza Allergic rhinitis, unspecified seasonality, unspecified trigger documented in this encounter [facility] HealthcareEvaluation note* Diagnosis Mild episode of recurrent major depressive disorder (HCC) (CMS/[facility])- Primary Obesity (BMI 30-39.9) Anxiety and depression (CMS/HCC)- Primary Primary hypertension ([facility]) Unspecified essential hypertension Asymptomatic microscopic hematuria Osteopenia, unspecified location Vitamin D deficiency Mixed hyperlipidemia (CMS/HCC) Mixed hyperlipidemia Hypothyroidism, unspecified type (CMS/HCC) Obesity (BMI 30-39.9) Mild episode of recurrent major depressive disorder (HCC) ([facility]) Allergic rhinitis, unspecified seasonality, unspecified trigger Skin candidiasis Candidiasis of skin and nails Obstructive sleep apnea- Primary Obstructive sleep apnea (adult) (pediatric) Allergic rhinitis, unspecified seasonality, unspecified trigger Anxiety and depression (CMS/HCC) Mixed hyperlipidemia (CMS/HCC) Mixed hyperlipidemia Osteopenia, unspecified location Vitamin D deficiency Hypothyroidism, unspecified type ([facility]) Urinary incontinence in female Primary hypertension ([facility]) Unspecified essential hypertension Skin candidiasis Candidiasis of skin and nails Class 1 obesity due to excess calories without serious comorbidity with body mass index (BMI) of 31.0 to 31.9 in adult Encounter for screening mammogram for malignant neoplasm of breast Osteopenia, unspecified location Anxiety and depression ([facility]) Allergic rhinitis, unspecified seasonality, unspecified trigger Vitamin [...] Asymptomatic postmenopausal status (age-related) (natural) Primary hypertension (CMS/[facility])- Primary Unspecified essential hypertension Obstructive sleep apnea Obstructive sleep apnea (adult) (pediatric) Hypothyroidism, unspecified type (CMS/HCC) Overweight (BMI 25.0-29.9) Overweight Osteopenia, unspecified location Anxiety and depression (CMS/HCC) Asymptomatic microscopic hematuria Vitamin D deficiency Mixed hyperlipidemia (CMS/HCC) Mixed hyperlipidemia Needs flu shot Need for prophylactic vaccination and inoculation against influenza Allergic rhinitis, unspecified seasonality, unspecified trigger Primary hypertension ([facility])- Primary Unspecified essential hypertension Overweight (BMI 25.0-29.9) Overweight Anxiety and depression (CMS/HCC) Obstructive sleep apnea Obstructive sleep apnea (adult) (pediatric) Primary insomnia Persistent disorder of initiating or maintaining sleep documented in this encounter [facility]* Diagnosis Mild episode of recurrent major depressive disorder (HCC) (CMS/HCC)- Primary Obesity (BMI 30-39.9) Anxiety and depression (CMS/HCC)- Primary Primary hypertension ([facility]) Unspecified essential hypertension Asymptomatic microscopic hematuria Osteopenia, unspecified location Vitamin D deficiency Mixed hyperlipidemia (CMS/HCC) Mixed hyperlipidemia Hypothyroidism, unspecified type (CMS/HCC) Obesity (BMI 30-39.9) Mild episode of recurrent major depressive disorder (HCC) (CMS/[facility]) Allergic rhinitis, unspecified seasonality, unspecified trigger Skin candidiasis Candidiasis of skin and nails Obstructive sleep apnea- Primary Obstructive sleep apnea (adult) (pediatric) Allergic rhinitis, unspecified seasonality, unspecified trigger Anxiety and depression (CMS/HCC) Mixed hyperlipidemia (CMS/HCC) Mixed hyperlipidemia Osteopenia, unspecified location Vitamin D deficiency Hypothyroidism, unspecified type ([facility]) Urinary incontinence in female Primary hypertension (CMS/[facility]) Unspecified essential hypertension Skin candidiasis Candidiasis of [...] Osteopenia, unspecified location documented in this encounter [facility]* [...] (CMS/HCC) Unspecified essential hypertension Hypothyroidism, unspecified type (CMS/[facility]) Primary insomnia Persistent disorder of initiating or maintaining sleep Osteopenia, unspecified location Skin candidiasis Candidiasis of skin and nails documented in this encounter [facility]* Diagnosis Mild episode of recurrent [...] 2024 12:57pmMajor depressive disorder, recurrent, mildacuteSeptember 2024 12:57pmOSA (obstructive sleep apnea)acuteSeptember 2024 12:57pm [facility] Work Phone: Hospital course Narrative No data available for this section [facility] Hospital Discharge instructions No data available for this section [facility] progress note No data available for this section [facility] reason for referral (narrative)No reason for referral information availablePe[facility] Work Phone: Summary Purpose Family History No [...] 2022 11:04am Hospital Course Note MR#: [id number] [facility] Pt. Name: Claudette Ross Admitted: 03/05/2019 Discharged: 03/06/2019 Date of : 1955 Physician: Corky Zavala MD DISCHARGE SUMMARY PRIMARY CARE PHYSICIAN: [...] and she was transported via EMS to [facility]. In [place], an EKG was done that showed no significant changes and initial t (more content not included)... Chief Complaint and Reason for Visit Chief Complaint m20.11 Chief Complaint Admit Date 3M November 05, 2024 12:57pm Reason for Visit Admit Date Breast cancer screening by mammogram [facility] 2024 12:57pm Essential hypertension November 05 12:57pm LATA (generalized anxiety disorder) [facility] 2024 12:57pm Hypothyroidism (acquired) October 12:57pm Insomnia November 05, 2024 12:57pm Major depressive disorder, recurrent, mi ld November 05, 2024 12:57pm ANITA (obstructive sleep apnea) November 05, 2024 12:57pm Chief Complaint Admit Date November 05, 2024 12:57pm MEDICARE WELLNESS December 30, 2024 10:45am Reason for Visit Admit Date Breast cancer screening by mammogram [facility] 2024 12:57pm Essential hypertension November 05 12:57pm LATA (generalized anxiety disorder) [facility] 2024 12:57pm Hypothyroidism (acquired) October 12:57pm Insomnia [...] 2024 10:45am Overweight December 30, 2024 10:45am Additional Source Comments INFORMATION SOURCE (unrecogn ized section and content) DATE CREATED AUTHOR 08/08/2017 [facility] DATE CREATED AUTHOR AUTHOR'S ORGANIZ ATION 03/19/2019 [facility] DATE CREATED AUTHOR AUTHOR'S ORGANIZ ATION 03/19/2021 [facility] DATE CREATED AUTHOR AUTHOR'S ORGANIZ ATION 04/06/2021 [facility] DATE CREATED AUTHOR AUTHOR'S ORGANIZ ATION 03/26/2022 [facility] DATE CREATED AUTHOR AUTHOR'S ORGANIZ ATION 06/22/2022 [facility] DATE CREATED AUTHOR AUTHOR'S ORGANIZ ATION 11/11/2022 [facility] DATE CREATED AUTHOR AUTHOR'S ORGANIZ ATION 08/07/2024 [facility] EPIC Care Team (unrecognized sect ion and content) Team Status: Inactive Member Role Status Dates Jessica Sosa Primary Care Provider Active Yordan Batres DPMAttsmooth ProviderActive Team Status: Active Member Role Status Dates Jessica Sosa Primary Care Provider Active Team MemberRelationshipSpecialtyStart DateEnd Date Pop Carreon MD [address] [place] [address] PCP - GeneralFamily Medicine04/13/23 Jessica Sosa NP [address] [place] [address] Nurse PractitionerFamily Medicine04/13/23Team MemberRelationshipSpecialtyStart DateEnd Date Pop Carreon MD [address] [place] [address] PCP - GeneralFamily Medicine04/13/23 Jessica Sosa NP [address] [place] [address] Nurse Practitionermily Medicine04/13/23Team MemberRelationshipSpecialtyStart DateEnd Date Pop Carreon MD [address] [place] [address] PCP - Generalmily Medicine04/13/23 Jessica Sosa NP [address] [place] [address] [facility]04/13/23Team MemberRelationshipSpecialtyStart DateEnd Date Pop Carreon MD [address] [place] [address] PCP - GeneralFamily Medicine04/13/23 Jessica Sosa NP [address] [place] [address] Nurse Practitionermily Medicine04/13/23Team MemberRelationshipSpecialtyStart DateEnd Date Pop Carreon MD [address] [place] [address] PCP - GeneralFamily Medicine04/13/23 Jessica Sosa NP [address] [place] [address] Nurse PractitionerFamily Medicine04/13/23 Meghana Canseco DO [address] [place] [address] Referring PhysicianNeurology1Team MemberRelationshipSpecialtyStart DateEnd Date Pop Carreon MD [address] [place] [address] PCP - [facility] Medicine04/13/23 Jessica Sosa NP [address] [place] [address] [facility] Medicine04/13/23 Meghana Canseco DO [address] [place] [address] Referring PhysicianNeurolog03/15/24Team MemberRelationshipSpecialtyStart DateEnd Date Pop Carreon MD [address] [place] [address] PCP - [facility] Medicine04/13/23 Jessica Sosa NP [address] [place] [address] [facility] Medicine04/13/23 Meghana Canseco DO [address] [place] [address] Referring PhysicianNeurologTeam MemberRelationshipSpecialtyStart DateEnd Date Pop Carreon MD [address] [place] [address] [facility] - [facility]04/13/23 Jessica Sosa NP [address] [place] [address] [facility] Medicine04/13/23 Meghana Canseco DO [address] [place], [place] [phone] Referring PhysicianNeurologTeam MemberRelationshipSpecialtyStart DateEnd Date Pop Carreon MD [address] [place] [address] PCP - [facility] Medicine04/13/23 Jessica Sosa NP [address] [place] [address] [facility] Medicine04/13/23 Meghana Canseco DO [address] [place] [address] Referring PhysicianNeurologTeam MemberRelationshipSpecialtyStart DateEnd Date Pop Carreon MD [address] [place] [address] PCP - [facility] Medicine04/13/23 Jessica Sosa NP [address] [place] [address] Nurse PractitionerFamily Medicine04/13/23 Meghana Canseco DO [address] [place] [address] Referring PhysicianNeurology1Team MemberRelationshipSpecialtyStart DateEnd Date Pop Carreon MD [address] [place] [address] PCP - GeneralFamily Medicine04/13/23 Jessica Sosa NP [address] [place] [address] Nurse PractitionerFamily Medicine04/13/23 Meghana Canseco DO [address] [place] [address] Referring PhysicianNeurolog03/15/24Team MemberRelationshipSpecialtyStart DateEnd Date Pop Carreon MD [address] [place] [address] PCP - GeneralFamily Medicine04/13/23 Jessica Sosa NP [address] [place] [address] Nurse PractitionerFamily Medicine04/13/23 Meghana Canseco DO [address] [place] [address] Referring PhysicianNeurology1Team MemberRelationshipSpecialtyStart DateEnd Date Pop Carreon MD [address] [place] [address] PCP - [facility]04/13/23 Jessica Sosa NP [address] [place] [address] [facility] Medicine04/13/23 Meghana Canseco DO [address] [place], [place] [phone] Referring PhysicianNeurolog03/15/24Team MemberRelationshipSpecialtyStart DateEnd Date Pop Carreon MD [address] [place] [address] [facility] - [facility]04/13/23 Jessica Sosa NP [address] [place] [address] [facility]04/13/23 Meghana Canseco DO [address] [place] [address] Referring PhysicianNeurolog03/15/24 Team Status: Active Member Role Status Dates Jessica Sosa NP-Ly Primary Care Provider Active Team Status: Inactive Member Role Status Dates Jessica Sosa NP-C Primary Care Provider Active Start: November 05, 2024 End: November 05, 2024Jessica Sosa NP-CAttending ProviderActiveStart: November 05, 2024 End: November 05, 2024Team MemberRelationshipSpecialtyStart DateEnd Date Pop Carreon MD [facility]CP - [facility]04/13/23 Jessica Sosa NP [address] [place] [address] PCP - [facility] Jessica Sosa NP Nurse Pract[facility]er[facility] Medicine04/13/23 Meghana Canseco DO [address] [place] [address] Referring PhysicianNeurology1 Team Status: Active Member Role/Relationship Status Dates Jessica Sosa NP-C Primary Care Provider Active Team Status: Inactive Member Role/Relationship Status Dates Jessica Sosa NP-C Primary Care Provider Active Start: November 05, 2024 End: November 05, 2024Jessica Sosa NP-CAttending ProviderActiveStart: November 05, 2024 End: November 05, 2024 Team Status: Inactive Member Role/Relationship Status Dates Jessica Sosa NP-Ly Primary Care Provider Active Start: December 30, 2024 End: December 30, 2024DEVEN ValenteCAtbobo ProviderActiveStart: December 30, 2024 End: December 30, 2024 Goals (unrecognized section and content) Goals may be documented in a n alternate section Reason for Visit (unrecogniz ed section and content) ReasonCommentsHypertensionReasonOnset DateCommentsMed Exfmdn4207/25/2024 FOR RECORDS PERTAINING TO PATIENTS WHO ARE [...] BE BASED ON THE PRIMARY CLINICAL RECORDS. [facility]. provides no warranty or guarantee of the accuracy or completeness of information in this document.
[2025-01-01 09:07] LABS: Hematocrit 38.2 % (36.0-48.0); Hemoglobin 13.0 g/dL (12.0-16.0); Immature Granulocytes Abs Auto 0.01 10^3/uL (0.00-0.03); Immature Granulocytes Pct Auto 0.2 % (0.0-0.5); Lymphocytes Absolute Auto 1.6 10^3/uL (1.2-3.8); Mean Corpuscular HGB Conc 34.0 g/dL (29.9-35.2); Mean Corpuscular Hemoglobin 30.4 pg (26.7-34.0); Mean Corpuscular Volume 89.3 fL (81.0-99.0); Platelet Count 224 10^3/uL (150-450); Red Blood Count 4.28 10^6/uL (4.20-5.40); White Blood Count 5.6 10^3/uL (4.0-11.0)
[2025-01-01 10:42] LABS: Glucose Urine UA NEGATIVE (NEGATIVE)
[2025-01-01 11:05] LABS: Cast Seen? NONE SEEN #/LPF (NONE SEEN); Crystals Seen? None Seen #/HPF (None Seen)
[2025-01-01 11:08] LABS: Anion Gap 9.9; Blood Urea Nitrogen 10.0 mg/dL (7.0-18.0); Calcium 9.6 mg/dL (8.5-10.1); Carbon Dioxide 28.9 mmol/L (21.0-32.0); Chloride 107 mmol/L (98-107); Estimated GFR (African America >60 (>=60 mL/min/1.73m^2); Estimated GFR (Non-African Ame >60 (>=60 mL/min/1.73m^2); Glucose 101 mg/dL (74-106); Potassium 3.8 mmol/L (3.5-5.1); Sodium 142 mmol/L (136-145); Thyroid Stimulating Hormone 2.086 uIU/mL (0.358-3.740)
== END 2025-01-01 08:45 | disposition home or self-care (01) ==
LOC: LAB 08:51
PROVIDERS: PCP Nurse Practitioner; Visit Provider Nurse Practitioner
DX: E03.9 Hypothyroidism, unspecified (principal); R42 Dizziness and giddiness; I10 Essential (primary) hypertension; F41.1 Generalized anxiety disorder
CPT/HCPCS: 36415; 80048; 81001; 84439; 84443; 85025